=== PATIENT | male | born 1950 | race American Indian/Alaskan Native ===

== ENCOUNTER 2017-06-16 13:33 | Outpatient (CLI) | payer MEDICARE ==
--- NOTE | 2017-06-17 14:05 | PET Report ---
PET/CT:06/16/17 13:33:00 CLINICAL: Colon cancer and small bowel obstruction. RADIOPHARMACEUTICAL: 15.082mCi F18-FDG. COMPARISON: 10/09/15 PET/CT TECHNIQUE- Following intravenous injection of F-18 FDG and an approximately 60 minute uptake period, CT and PET images from the mid skull to the upper thighs were acquired with the patient in the fasted state. No contrast was administered. The CT protocol used for this PET CT study is designed for attenuation correction and anatomic localization of PET abnormalities. This improvement rn CT is not desired to produce and cannot replace, [id number]-art diagnostic CT scans with specific imaging protocols for different body parts and indications. Plasma glucose at the time of this test: 174g/dl. The standardized uptake values (SUV) are normalized to patient body weight and indicate the highest activity concentration (SUV max) in a given disease site. FINDINGS: Brain--Physiologic FDG uptake in the visualized regions of the brain. Neck--Physiologic FDG uptake . Chest--Physiologic FDG uptake in mediastinal blood pool and myocardium. Lungs--No abnormal uptake. No pulmonary nodule or mass. Pleura/pericardium--No abnormal uptake. Thoracic nodes--No abnormal uptake. Hepatobiliary--No abnormal uptake. Liver background SUV mean, as a reference for comparing FDG studies, is 3.5 compared to 3.8 on the last exam. No liver mass. Spleen--No abnormal uptake. Pancreas--No abnormal uptake. Adrenal Glands--No abnormal uptake. Kidneys/Ureters/Bladder--No abnormal uptake. Abdominopelvic Nodes--No abnormal uptake. Bowel/Peritoneum/Mesentery--Abnormal thickening of small bowel loops and multiple moderately dilated fluid filled loops of small bowel. The greatest dilatation is in the left mid and lower quadrant. Suspicious FDG uptake in the left lower quadrant adjacent to surgical clips at the left psoas muscle with SUV 6.2. No distinct mass is identified.Healed midline abdominal incision and a right ileotransverse anastomosis. No suspicious FDG uptake at the ileocolic anastomosis. Pelvic organs--No abnormal uptake. Bones/Soft Tissues--No abnormal uptake. No suspicious bone lesions. IMPRESSION-1. Moderate dilatation of left-sided small bowel loops are suspicious for at least a partial small bowel obstruction. 2. Suspect metastasis to left lower quadrant small bowel loops. Recommend CT abdomen and pelvis with both IV and oral contrast. This may better delineate a point of obstruction and may identify an obstructing. 3. No evidence of pulmonary, don or hepatic metastasis.
== END 2017-06-16 13:34 | disposition home or self-care (01) ==
LOC: PET 13:33
PROVIDERS: ATTEND Internal Medicine Hematology & Oncology
DX: K56.69 Other intestinal obstruction (principal); I11.0 Hypertensive heart disease with heart failure; I50.22 Chronic systolic (congestive) heart failure; E78.00 Pure hypercholesterolemia, unspecified; J44.9 Chronic obstructive pulmonary disease, unspecified; Z85.038 Personal history of other malignant neoplasm of large intestine; Z87.891 Personal history of nicotine dependence; Z79.899 Other long term (current) drug therapy
CPT/HCPCS: 78815; 82962; A9552

== ENCOUNTER 2017-08-27 02:16 | Inpatient (IN) | payer MEDICARE ==
[2017-08-27 03:35] LABS: Hematocrit 26.5 % (35.5-45.6); Hemoglobin 8.4 gm/dl (11.8-15.2); Mean Corpuscular HGB Conc 32 % (32-34); Mean Corpuscular Volume 77 fl (84-94); Platelet Count 362 K/mm3 (140-440); Red Blood Count 3.46 M/mm3 (3.65-5.03); White Blood Count 14.6 K/mm3 (4.5-11.0)
[2017-08-27 03:58] LABS: Alanine Aminotransferase 62 units/L (7-56); Albumin 3.2 g/dL (3.9-5); Albumin/Globulin Ratio 0.6 %; Alkaline Phosphatase 133 units/L (35-129); Anion Gap 20 mmol/L; BUN/Creatinine Ratio 21; Blood Urea Nitrogen 21 mg/dL (9-20); Calcium 9.2 mg/dL (8.4-10.2); Carbon Dioxide 26 mmol/L (22-30); Chloride 93.3 mmol/L (98-107); Glucose 104 mg/dL (75-100); Potassium 3.7 mmol/L (3.6-5.0); Sodium 136 mmol/L (137-145); Total Protein 8.5 g/dL (6.3-8.2)
[2017-08-27 04:05] LABS: Mean Corpuscular Hemoglobin 24 pg (28-32); Red Cell Distribution Width 25.8 % (13.2-15.2)
--- NOTE | 2017-08-27 05:00 | XRay Report ---
FINAL REPORT PROCEDURE: XR CHEST 1V AP TECHNIQUE: Chest radiograph anteroposterior view. CPT 25571 HISTORY: fever without a source COMPARISON: No prior studies are available for comparison. FINDINGS: Heart: The heart is enlarged Mediastinum/Vessels: Normal. Lungs/Pleural space: Lungs are clear. There are mild fibrotic changes. There are no infiltrates, effusions or pneumothoraces.. Bony thorax: No acute osseous abnormality. Life support devices: There is a right-sided PICC line. The tip is in the superior vena cava.. IMPRESSION: No acute cardiopulmonary abnormality.
[2017-08-27 05:26] LABS: Urine Drugs of Abuse Note Disclamer
[2017-08-27 05:33] LABS: Bilirubin,Urine NEG (Negative); Blood,Urine NEG (Negative); Ketones,Urine NEG (Negative); Leukocyte Esterase,Urine NEG (Negative); Nitrite,Urine NEG (Negative); Urobilinogen,Urine < 2.0 mg/dL (<2.0); WBC,Urine < 1.0 /HPF (0.0-6.0)
[2017-08-27] MEDS ORDERED: TYLENOL PR ONE (05:45)
--- NOTE | 2017-08-27 05:49 | Emergency Department Report ---
HPI - General Chief Complaint: Altered Mental Status Time Seen by Provider: 08/27/17 03:03 - HPI HPI: As a 66-year-old male presents to the emergency department from home with altered mental status. This has been going on intermittently since the patient last had surgery on July 20. 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 While he was in the hospital dealing with that, the patient then developed a DVT. The is currently bedside and says that he appeared lethargic today and was unable to respond to any questions or commands and that is unusual for him. She checked his temperature at home and he had a fever of 102.2 Fahrenheit. His primary care physician is Dr. Elaina carroll. He has a past medical history as well of insulin-dependent diabetes , hypertension, GERD. He has had 2 previous DVTs. He has a surgical history of previous colon resection, small bowel bypass, fistula repair, colostomy reversal. ED Past Medical Hx - Past Medical History Previous Medical History?: Yes Hx Hypertension: Yes (told to take atenolol) Hx Heart Attack/AMI: No Hx Diabetes: Yes (IDDM 2004) Hx Deep Vein Thrombosis: Yes (LEFT LEG 8 YEARS) Hx Pulmonary Embolism: Yes (2005) Hx GERD: Yes Hx Liver Disease: No Hx Renal Disease: No Hx Seizures: No Hx Asthma: No Additional medical history: 2 DVT'S in LLE, Picc line RUE - Surgical History Past Surgical History?: Yes Additional Surgical History: colon resection, small bowel Bypass, fistula repair , colostomy reversal - Social History Smoking Status: Never Smoker Substance Use Type: None - Medications Home Medications: Home Medications Medication Instructions Recorded Confirmed Last Taken Type Amlodipine Besylate/Benazepril 1 tab PO DAILY 01/01/15 08/27/17 08/26/17 History [amLODIPine-Benazepril 10/20 mg] Atenolol [Atenolol] 100 mg PO BID 01/01/15 08/27/17 08/26/17 History Insulin Glargine,Hum.rec.anlog 20 units SUB-Q HS 01/01/15 08/27/17 08/26/17 History [Lantus Solostar] Omeprazole [Omeprazole] 20 mg PO DAILY 01/01/15 08/27/17 08/26/17 History glyBURIDE/METFORMIN HCL 10 tab PO DAILY 01/01/15 08/27/17 08/26/17 History [Glyburide-Metformin 5-500 mg] Doxazosin [Cardura] 2 mg PO BID 08/27/17 08/27/17 08/26/17 History Insulin Glargine [Lantus] 20 unit SUB-Q QHS 08/27/17 08/27/17 08/26/17 History Simethicone [Gas Relief] 80 mg PO ACHS 08/27/17 08/27/17 08/26/17 History Warfarin [Coumadin] 7.5 mg PO QDAY 08/27/17 08/27/17 08/25/17 History metFORMIN [Glucophage] 500 mg PO BID 08/27/17 08/27/17 08/26/17 History oxyCODONE [Roxicodone] 5 mg PO Q4HR PRN 08/27/17 08/27/17 08/26/17 History ED Review of Systems ROS: Stated complaint: FEVER,COUGHING Other details as noted in HPI Comment: Unobtainable due to pts medical conditions Physical Exam - Physical Exam Vital Signs: Vital Signs 08/27/17 08/27/17 08/27/17 02:20 02:23 02:30 Temperature 100.7 F H Pulse Rate 95 H 96 H Respiratory 22 18 Rate Blood Pressure 181/89 179/80 O2 Sat by Pulse 90 98 98 Oximetry 08/27/17 08/27/17 08/27/17 02:45 02:52 03:00 Temperature 101.6 F H Pulse Rate 94 H 93 H Respiratory 18 20 Rate Blood Pressure 160/75 165/82 O2 Sat by Pulse 98 98 Oximetry 08/27/17 08/27/17 08/27/17 03:15 03:30 03:45 Temperature 101.6 F H Pulse Rate 90 87 88 Respiratory 19 20 22 Rate Blood Pressure 157/74 144/70 158/80 O2 Sat by Pulse 96 97 100 Oximetry 08/27/17 08/27/17 08/27/17 04:00 04:15 04:26 Temperature Pulse Rate 85 87 72 Respiratory 17 21 18 Rate Blood Pressure 151/71 152/70 O2 Sat by Pulse 98 99 99 Oximetry 08/27/17 04:32 Temperature 101.6 F H Pulse Rate Respiratory Rate Blood Pressure O2 Sat by Pulse Oximetry Physical Exam: GENERAL: Patient is ill-appearing. HENT: Normocephalic. Atraumatic. Patient has moist mucous membranes. EYES: Extraocular motions are intact. Pupils equal reactive to light bilaterally. NECK: Supple. Trachea is midline. CHEST/LUNGS: Clear to auscultation. There is no respiratory distress noted. HEART/CARDIOVASCULAR: Regular. There is no tachycardia. There is no gallop rub or murmur. ABDOMEN: Abdomen is soft, nontender. Patient has normal bowel sounds. There is no abdominal distention. SKIN: Skin is hot but dry. NEURO: Patient is awake but nonverbal. He does not answer any questions were appeared to follow any commands. Withdraws from painful stimuli. MUSCULOSKELETAL: There is no tenderness or deformity. There is no evidence of acute injury. ED Course Vital Signs 08/27/17 08/27/17 08/27/17 02:20 02:23 02:30 Temperature 100.7 F H Pulse Rate 95 H 96 H Respiratory 22 18 Rate Blood Pressure 181/89 179/80 O2 Sat by Pulse 90 98 98 Oximetry 08/27/17 08/27/17 08/27/17 02:45 02:52 03:00 Temperature 101.6 F H Pulse Rate 94 H 93 H Respiratory 18 20 Rate Blood Pressure 160/75 165/82 O2 Sat by Pulse 98 98 Oximetry 08/27/17 08/27/17 08/27/17 03:15 03:30 03:45 Temperature 101.6 F H Pulse Rate 90 87 88 Respiratory 19 20 22 Rate Blood Pressure 157/74 144/70 158/80 O2 Sat by Pulse 96 97 100 Oximetry 08/27/17 08/27/17 08/27/17 04:00 04:15 04:26 Temperature Pulse Rate 85 87 72 Respiratory 17 21 18 Rate Blood Pressure 151/71 152/70 O2 Sat by Pulse 98 99 99 Oximetry 08/27/17 04:32 Temperature 101.6 F H Pulse Rate Respiratory Rate Blood Pressure O2 Sat by Pulse Oximetry ED Medical Decision Making - Lab Data Result diagrams: 08/27/17 03:02 08/27/17 03:02 - EKG Data -: EKG Interpreted by Pa EKG shows normal: sinus rhythm, axis, intervals, QRS complexes (LVH), ST-T waves Rate: normal - EKG Data When compared to previous EKG there are: previous EKG unavailable Interpretation: LVH - Radiology Data Radiology results: report reviewed, image reviewed interpreted by me: Chest x-ray does not show any acute process. There are no pleural effusions, obvious pneumonia and there is no pneumothorax. PROCEDURE: CT ABDOMEN PELVIS W CON TECHNIQUE: Computerized axial tomography of the abdomen and pelvis was performed after the IV injection of iodinated nonionic contrast. HISTORY: Fever without infection, hx of intestinal ca COMPARISON: No prior studies are available for comparison. FINDINGS: Visualized lower thorax: Lower lung zone patchy atelectasis with airspace disease in the left lower lung zone. Rounded opacities including but not limited to right lung base 1.5 centimeters. Other smaller nodules lower lung zones suspected. Underlying metastatic disease not excludable. Heart is mildly enlarged. Liver: Significantly enlarged heterogeneous liver with mild periportal tracking.. Spleen: Normal size and attenuation. Gallbladder and biliary system: Normal. Pancreas: Diffuse pancreatic atrophy with diminished enhancement features of the pancreatic head uncinate process and proximal body of indeterminate significance.. Adrenals: Left adrenal gland mass or hyperplasia in the 1.5 x 1.2 centimeter range.. Kidneys: Cortical lobulation and scarring suspected. Possible complex mass lesion lower pole left kidney in the 2.3 x 2.7 centimeter range. Rule-out metastatic disease local invasion of malignancy or renal cell carcinoma. This appears to be intimately adhesive to or subjacent to loops of previously surgerized bowel. GI tract: No oral contrast given. There is decompression of the stomach with wall thickening inconclusive for filtration pathology. Wall measures up to 2 centimeters. There is extensive postsurgical change in the infraumbilical anterior abdomen with clustering of bowel and with scattered air-fluid levels and dilated portions of bowel in wall thickening measuring up to 4.3 centimeters. There has been postsurgical anastomoses at several levels infraumbilical right upper abdomen left lower quadrant area. Obstructive process is not excludable and is the diagnosis of exclusion. Underlying malignancy is the diagnosis of exclusion. Underlying mesenteric caking is not excludable. Followup examination with oral contrast may be of use to further evaluate patency bowel lumen and to decipher between bowel loops versus fluid collections adenopathy masses and potentially malignancy. Defer to PET scan regarding excluding underlying malignancy. There is soft tissue stranding in thickening with ventral abdominal herniation of fat left paraumbilical region axial 111 sagittal 92. This could reflect a herniated loop of bowel which could be incarcerated or early strangulated however could reflect a subcutaneous and deep tissue fluid collection or abscess with fluid and gas present. Followup oral examination is advised. Areas of bowel wall thickening evident Lymph nodes and mesentery: Scattered adenopathy including carmen hepatis retroperitoneum mesentery Vasculature: Atherosclerosis. Poorly opacified left common femoral vein. This could reflect manifestations of DVT. Recommend left leg ultrasound. Slight stranding and thickening about the left common femoral vein.. Bladder: Normal. Reproductive organs: Normal. Peritoneum: No free fluid. Musculoskeletal structures: No significant abnormality. Other: No prior CT scan submitted for correlation at this time. Place have those available for follow-up study correlation in this case IMPRESSION: Extensive GI postsurgical changes in the anterior abdomen Limited by lack of oral contrast. Underlying abscess or malignancy not excludable. Early bowel obstruction not excludable. Areas of bowel wall thickening surrounded by cohesive bowel possible small potential pockets of fluid and mesenteric stranding. Mesenteric implantation caking not excludable. Rule-out ventral herniation of bowel and potentially incarcerated or early strangulated loop versus subcutaneous surgical tract with fluid gas and infection in that location. Suggest followup CT scan with oral contrast and some added IV contrast preferably Rule-out malignancy in the lower pole left kidney adhesive to diseased bowel Rule-out metastatic disease in the lungs Rule-out DVT left common femoral vein Transcribed By: STEPHANIE Dictated By: MOLLY GREGORY MD Electronically Authenticated By: MOLLY GREGORY MD Signed Date/Time: 08/27/17 0536 PROCEDURE: CT HEAD/BRAIN WO CON TECHNIQUE: Computerized tomography of the head was performed without contrast material. HISTORY: AMS COMPARISON: No prior studies are available for comparison. FINDINGS: Skull and scalp: Normal. Paranasal sinuses: Normal. Ventricles and subarachnoid spaces: There is mild central and cortical atrophy appropriate for the patient's age.. Cerebrum: No evidence of hemorrhage, acute infarction or mass. There is chronic periventricular deep white matter ischemic gliosis. Cerebellum and brainstem: No evidence of hemorrhage, acute infarction or mass. Vasculature: Normal. Comments: None. IMPRESSION: There is no acute intracranial abnormality. - Medical Decision Making The patient presents with intermittent altered mental status over the past month or so. CT of the head did not show any acute process. Chest x-ray did not show any pneumonia. The patient appears to have Sirs criteria but no obvious source of infection found. CT of abdomen and pelvis was done at the admitting hospitalist request and it did not appear to show any obvious source of infection but without oral contrast radiology felt certain conditions were not ruled out. Patient was started empirically on Zosyn. He was admitted to Dr. Mirza and it appears as if a surgical consultation was obtained. Critical Care Time: No Critical care attestation.: If time is entered above; I have spent that time in minutes in the direct care of this critically ill patient, excluding procedure time. ED Disposition Clinical Impression: SIRS (systemic inflammatory response syndrome) Fever Qualifiers: Fever type: unspecified Qualified Code(s): R50.9 - Fever, unspecified Hypertension Qualifiers: Hypertension type: essential hypertension Qualified Code(s): I10 - Essential ( primary) hypertension Altered mental status Qualifiers: Altered mental status type: transient alteration of awareness Qualified Code(s) : R40.4 - Transient alteration of awareness Disposition: DC-09 OP ADMIT IP TO THIS HOSP Is pt being admited?: Yes Condition: Fair Time of Disposition: 06:27
[2017-08-27] MEDS ORDERED: ZOSYN/NS 4.5GM/100ML 4.5 GM/100 ML VIAL IV ONE (06:00)
--- NOTE | 2017-08-27 06:26 | Cat Scan Report ---
FINAL REPORT PROCEDURE: CT HEAD/BRAIN WO CON TECHNIQUE: Computerized tomography of the head was performed without contrast material. HISTORY: AMS COMPARISON: No prior studies are available for comparison. FINDINGS: Skull and scalp: Normal. Paranasal sinuses: Normal. Ventricles and subarachnoid spaces: There is mild central and cortical atrophy appropriate for the patient's age.. Cerebrum: No evidence of hemorrhage, acute infarction or mass. There is chronic periventricular deep white matter ischemic gliosis. Cerebellum and brainstem: No evidence of hemorrhage, acute infarction or mass. Vasculature: Normal. Comments: None. IMPRESSION: There is no acute intracranial abnormality.
[2017-08-27] MEDS ORDERED: VANCOMYCIN/NS 1 GM/250 ML 1 GM/250 ML BAG IV ONE (06:36)
[2017-08-27 06:37] LABS: Blastocytes % (Manual) 0 %
[2017-08-27 06:38] LABS: Anisocytosis 2+
[2017-08-27 06:39] LABS: Elliptocytes Few; Giant Platelets Few; Hypochromasia 2+; Ovalocytes Few; Polychromasia 1+; Target Cells Rare
[2017-08-27 06:40] LABS: Diff Status Complete
[2017-08-27] MEDS ORDERED: VANCOMYCIN 1,750 MG in NACL 0.9% 500 ML 500 ML IV ONE (07:00)
[2017-08-27] MEDS ORDERED: D5/0.45NS 1,000 ML IV SCH (07:00)
[2017-08-27] MEDS ORDERED: NACL ONE (07:52)
--- NOTE | 2017-08-27 09:38 | Cat Scan Report ---
FINAL REPORT PROCEDURE: CT ABDOMEN PELVIS W CON TECHNIQUE: Computerized axial tomography of the abdomen and pelvis was performed after the IV injection of iodinated nonionic contrast. HISTORY: Fever without infection, hx of intestinal ca COMPARISON: No prior studies are available for comparison. FINDINGS: Visualized lower thorax: Lower lung zone patchy atelectasis with airspace disease in the left lower lung zone. Rounded opacities including but not limited to right lung base 1.5 centimeters. Other smaller nodules lower lung zones suspected. Underlying metastatic disease not excludable. Heart is mildly enlarged. Liver: Significantly enlarged heterogeneous liver with mild periportal tracking.. Spleen: Normal size and attenuation. Gallbladder and biliary system: Normal. Pancreas: Diffuse pancreatic atrophy with diminished enhancement features of the pancreatic head uncinate process and proximal body of indeterminate significance.. Adrenals: Left adrenal gland mass or hyperplasia in the 1.5 x 1.2 centimeter range.. Kidneys: Cortical lobulation and scarring suspected. Possible complex mass lesion lower pole left kidney in the 2.3 x 2.7 centimeter range. Rule-out metastatic disease local invasion of malignancy or renal cell carcinoma. This appears to be intimately adhesive to or subjacent to loops of previously surgerized bowel. GI tract: No oral contrast given. There is decompression of the stomach with wall thickening inconclusive for filtration pathology. Wall measures up to 2 centimeters. There is extensive postsurgical change in the infraumbilical anterior abdomen with clustering of bowel and with scattered air-fluid levels and dilated portions of bowel in wall thickening measuring up to 4.3 centimeters. There has been postsurgical anastomoses at several levels infraumbilical right upper abdomen left lower quadrant area. Obstructive process is not excludable and is the diagnosis of exclusion. Underlying malignancy is the diagnosis of exclusion. Underlying mesenteric caking is not excludable. Followup examination with oral contrast may be of use to further evaluate patency bowel lumen and to decipher between bowel loops versus fluid collections adenopathy masses and potentially malignancy. Defer to PET scan regarding excluding underlying malignancy. There is soft tissue stranding in thickening with ventral abdominal herniation of fat left paraumbilical region axial 111 sagittal 92. This could reflect a herniated loop of bowel which could be incarcerated or early strangulated however could reflect a subcutaneous and deep tissue fluid collection or abscess with fluid and gas present. Followup oral examination is advised. Areas of bowel wall thickening evident Lymph nodes and mesentery: Scattered adenopathy including carmen hepatis retroperitoneum mesentery Vasculature: Atherosclerosis. Poorly opacified left common femoral vein. This could reflect manifestations of DVT. Recommend left leg ultrasound. Slight stranding and thickening about the left common femoral vein.. Bladder: Normal. Reproductive organs: Normal. Peritoneum: No free fluid. Musculoskeletal structures: No significant abnormality. Other: No prior CT scan submitted for correlation at this time. Place have those available for follow-up study correlation in this case IMPRESSION: Extensive GI postsurgical changes in the anterior abdomen Limited by lack of oral contrast. Underlying abscess or malignancy not excludable. Early bowel obstruction not excludable. Areas of bowel wall thickening surrounded by cohesive bowel possible small potential pockets of fluid and mesenteric stranding. Mesenteric implantation caking not excludable. Rule-out ventral herniation of bowel and potentially incarcerated or early strangulated loop versus subcutaneous surgical tract with fluid gas and infection in that location. Suggest followup CT scan with oral contrast and some added IV contrast preferably Rule-out malignancy in the lower pole left kidney adhesive to diseased bowel Rule-out metastatic disease in the lungs Rule-out DVT left common femoral vein
[2017-08-27] MEDS ORDERED: LOVENOX SUB-Q SCH (10:00)
--- NOTE | 2017-08-27 11:59 | Event Note ---
Requested follow-up on CT abdomen and pelvis reading by Dr. Rosas. FINAL REPORT PROCEDURE: CT ABDOMEN PELVIS W CON TECHNIQUE: Computerized axial tomography of the abdomen and pelvis was performed after the IV injection of iodinated nonionic contrast. HISTORY: Fever without infection, hx of intestinal ca COMPARISON: No prior studies are available for comparison. FINDINGS: Visualized lower thorax: Lower lung zone patchy atelectasis with airspace disease in the left lower lung zone. Rounded opacities including but not limited to right lung base 1.5 centimeters. Other smaller nodules lower lung zones suspected. Underlying metastatic disease not excludable. Heart is mildly enlarged. Liver: Significantly enlarged heterogeneous liver with mild periportal tracking.. Spleen: Normal size and attenuation. Gallbladder and biliary system: Normal. Pancreas: Diffuse pancreatic atrophy with diminished enhancement features of the pancreatic head uncinate process and proximal body of indeterminate significance.. Adrenals: Left adrenal gland mass or hyperplasia in the 1.5 x 1.2 centimeter range.. Kidneys: Cortical lobulation and scarring suspected. Possible complex mass lesion lower pole left kidney in the 2.3 x 2.7 centimeter range. Rule-out metastatic disease local invasion of malignancy or renal cell carcinoma. This appears to be intimately adhesive to or subjacent to loops of previously surgerized bowel. GI tract: No oral contrast given. There is decompression of the stomach with wall thickening inconclusive for filtration pathology. Wall measures up to 2 centimeters. There is extensive postsurgical change in the infraumbilical anterior abdomen with clustering of bowel and with scattered air-fluid levels and dilated portions of bowel in wall thickening measuring up to 4.3 centimeters. There has been postsurgical anastomoses at several levels infraumbilical right upper abdomen left lower quadrant area. Obstructive process is not excludable and is the diagnosis of exclusion. Underlying malignancy is the diagnosis of exclusion. Underlying mesenteric caking is not excludable. Followup examination with oral contrast may be of use to further evaluate patency bowel lumen and to decipher between bowel loops versus fluid collections adenopathy masses and potentially malignancy. Defer to PET scan regarding excluding underlying malignancy. There is soft tissue stranding in thickening with ventral abdominal herniation of fat left paraumbilical region axial 111 sagittal 92. This could reflect a herniated loop of bowel which could be incarcerated or early strangulated however could reflect a subcutaneous and deep tissue fluid collection or abscess with fluid and gas present. Followup oral examination is advised. Areas of bowel wall thickening evident Lymph nodes and mesentery: Scattered adenopathy including carmen hepatis retroperitoneum mesentery Vasculature: Atherosclerosis. Poorly opacified left common femoral vein. This could reflect manifestations of DVT. Recommend left leg ultrasound. Slight stranding and thickening about the left common femoral vein.. Bladder: Normal. Reproductive organs: Normal. Peritoneum: No free fluid. Musculoskeletal structures: No significant abnormality. Other: No prior CT scan submitted for correlation at this time. Place have those available for follow-up study correlation in this case IMPRESSION: Extensive GI postsurgical changes in the anterior abdomen Limited by lack of oral contrast. Underlying abscess or malignancy not excludable. Early bowel obstruction not excludable. Areas of bowel wall thickening surrounded by cohesive bowel possible small potential pockets of fluid and mesenteric stranding. Mesenteric implantation caking not excludable. Rule-out ventral herniation of bowel and potentially incarcerated or early strangulated loop versus subcutaneous surgical tract with fluid gas and infection in that location. Suggest followup CT scan with oral contrast and some added IV contrast preferably Rule-out malignancy in the lower pole left kidney adhesive to diseased bowel Rule-out metastatic disease in the lungs Rule-out DVT left common femoral vein Transcribed By: STEPHANIE Dictated By: MOLLY GREGORY MD Electronically Authenticated By: MOLLY GREGORY MD Signed Date/Time: 08/27/17535 DD/ 5 TD/TT: 08/27/17535 CT report discussed with Dr. Lewis at 11:55. He requests Dr. Trujillo be consulted. Case discussed with Dr. Trujillo at 11:58
--- NOTE | 2017-08-27 13:02 | History and Physical Report ---
History of Present Illness Date of examination: 08/27/17 Date of admission: 08/27/17 06:28 Chief complaint: AMS History of present illness: As a 66-year-old male with a history of DM, DVT, GERD, HTN inoperable colon cancer, presents to the emergency department from home on account of having altered mental status and fever. He has previous DVTs. He has a surgical history of previous colon resection, small bowel bypass. This has been going on intermittently since the patient last had surgery on July 2017. 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 While he was in the hospital dealing with that, the patient then developed a DVT. The is currently bedside and says that he appeared lethargic today and was unable to respond to any questions or commands and that is unusual for him. She checked his temperature at home and he had a fever of 102.2 Fahrenheit. He has had 2 previous DVTs. He has a surgical history of previous colon resection, small bowel bypass, fistula repair, colostomy reversal. Denies any chest pain. admission was requested Past History Past Medical History: diabetes, hypertension Past Surgical History: bowel surgery Social history: smoking, alcohol abuse, prescription drug abuse Family history: no significant family history Medications and Allergies Allergies Allergy/AdvReac Type Severity Reaction Status Date / Time No Known Allergies Allergy Verified 01/01/15 13:25 Home Medications Medication Instructions Recorded Confirmed Last Taken Type Amlodipine Besylate/Benazepril 1 tab PO DAILY 01/01/15 08/27/17 08/26/17 History [amLODIPine-Benazepril 10/20 mg] Atenolol [Atenolol] 100 mg PO BID 01/01/15 08/27/17 08/26/17 History Insulin Glargine,Hum.rec.anlog 20 units SUB-Q HS 01/01/15 08/27/17 08/26/17 History [Lantus Solostar] Omeprazole [Omeprazole] 20 mg PO DAILY 01/01/15 08/27/17 08/26/17 History glyBURIDE/METFORMIN HCL 10 tab PO DAILY 01/01/15 08/27/17 08/26/17 History [Glyburide-Metformin 5-500 mg] Doxazosin [Cardura] 2 mg PO BID 08/27/17 08/27/17 08/26/17 History Insulin Glargine [Lantus] 20 unit SUB-Q QHS 08/27/17 08/27/17 08/26/17 History Simethicone [Gas Relief] 80 mg PO ACHS 08/27/17 08/27/17 08/26/17 History Warfarin [Coumadin] 7.5 mg PO QDAY 08/27/17 08/27/17 08/25/17 History metFORMIN [Glucophage] 500 mg PO BID 08/27/17 08/27/17 08/26/17 History oxyCODONE [Roxicodone] 5 mg PO Q4HR PRN 08/27/17 08/27/17 08/26/17 History Active Meds: Active Medications Enoxaparin Sodium (Lovenox) 40 mg SUB-Q QDAY ALEC Dextrose/Sodium Chloride (D5/0.45ns) 1,000 mls @ 75 mls/hr IV DIRECT ALEC Last Admin: 08/27/17 07:46 Dose: 75 mls/hr Vancomycin HCl 1,250 mg/ (Sodium Chloride) 262.5 mls @ 166.667 mls/hr IV Q12H ALEC Review of Systems ROS unobtainable: due to mental status Exam - Constitutional Vitals: Temp Pulse Resp BP Pulse Ox 99.6 F 76 18 139/68 100 08/27/17 10:59 08/27/17 10:59 08/27/17 10:59 08/27/17 10:59 08/27/17 10:59 General appearance: Present: no acute distress, well-nourished - EENT Eyes: Present: PERRL - Neck Neck: Present: supple, normal ROM - Respiratory Respiratory effort: normal Respiratory: bilateral: CTA - Cardiovascular Heart Sounds: Present: S1 & S2. Absent: rub, click - Extremities Extremities: pulses symmetrical, No edema Peripheral Pulses: within normal limits - Abdominal General gastrointestinal: Present: soft, non-tender, non-distended, normal bowel sounds Male genitourinary: Present: normal - Integumentary Integumentary: Present: clear, warm, dry - Musculoskeletal Musculoskeletal: gait normal, strength equal bilaterally - Psychiatric Psychiatric: appropriate mood/affect, intact judgment & insight - Neurologic Neurologic: CNII-XII intact, moves all extremities Results - Labs CBC & Chem 7: 08/28/17 20:43 08/29/17 02:56 Labs: Abnormal lab results 08/27/17 08/27/17 08/27/17 Range/Units 03:02 03:02 03:02 WBC 14.6 H (4.5-11.0) K/mm3 RBC 3.46 L (3.65-5.03) M/mm3 Hgb 8.4 L (11.8-15.2) gm/dl Hct 26.5 L (35.5-45.6) % MCV 77 L (84-94) fl MCH 24 L (28-32) pg RDW 25.8 H (13.2-15.2) % Monocytes % (Manual) 8.0 H (0.0-7.3) % Nucleated RBC % 3.0 H (0.0-0.9) % Monocytes # (Manual) 1.2 H (0.0-0.8) K/mm3 Sodium 136 L (137-145) mmol/L Chloride 93.3 L (98-107) mmol/L BUN 21 H (9-20) mg/dL Glucose 104 H (75-100) mg/dL POC Glucose (70-105) ALT 62 H (7-56) units/L Alkaline Phosphatase 133 H (35-129) units/L Total Protein 8.5 H (6.3-8.2) g/dL Albumin 3.2 L (3.9-5) g/dL Urine pH (5.0-7.0) Salicylates < 0.3 L (2.8-20.0) mg/dL 08/27/17 08/27/17 08/27/17 Range/Units 05:00 07:43 11:20 WBC (4.5-11.0) K/mm3 RBC (3.65-5.03) M/mm3 Hgb (11.8-15.2) gm/dl Hct (35.5-45.6) % MCV (84-94) fl MCH (28-32) pg RDW (13.2-15.2) % Monocytes % (Manual) (0.0-7.3) % Nucleated RBC % (0.0-0.9) % Monocytes # (Manual) (0.0-0.8) K/mm3 Sodium (137-145) mmol/L Chloride (98-107) mmol/L BUN (9-20) mg/dL Glucose (75-100) mg/dL POC Glucose 116 H 110 H (70-105) ALT (7-56) units/L Alkaline Phosphatase (35-129) units/L Total Protein (6.3-8.2) g/dL Albumin (3.9-5) g/dL Urine pH 9.0 H (5.0-7.0) Salicylates (2.8-20.0) mg/dL Assessment and Plan - Fever: Obtain blood cx and urine cx. Commence iv antibx- Vanc and Zosyn and zofran. Lactic acid was normal - Partial intestinal obstruction: Continue with TPN and place on NPO. Discussed with Surgeon Dr. Trujillo who said that pt had inoperable cancer and will not consider surgical operation. - History of colon cancer: s/p gut resection. - Metastatic cnacer likely colonic with mets to the Liver kidney and lungs. discussed with Dr. Trujillo. Not willing to operate. - DM: Consistent carbohydrate meal - Possible DVT: Commence lovenox 1mg per kg q 12 - GI prophyalxis with Pepcid - Discussed at length with pt's brother who stated that Pt had a diverting intestinal surgery at [facility] for a cancer that was inoperable a few months ago. Had PET scan in Jun 2016 which was read by his oncologist, Dr. BOYD as having distant mets and that pt was not fit fro Chemotherapy. He threefioore referred pt to Radiation oncologist which they were to see next week.
[2017-08-27] MEDS: TYLENOL PO PRN (13:10)
[2017-08-27] MEDS ORDERED: AMLODIPINE BESYLATE PO SCH (13:15)
[2017-08-27] MEDS ORDERED: BENAZEPRIL PO SCH (13:15)
[2017-08-27] MEDS ORDERED: ZOSYN/NS 3.375GM/50ML 3.375 GM/50 ML BAG IV SCH (14:00)
[2017-08-27] MEDS ORDERED: VANCOMYCIN/NS 1 GM/250 ML 1 GM/250 ML BAG IV SCH (14:00)
[2017-08-27] MEDS: CARDURA PO SCH ×2 (15:29→22:30)
[2017-08-27] MEDS ORDERED: ZOSYN/NS 4.5GM/100ML 4.5 GM/100 ML VIAL IV SCH (16:00)
[2017-08-27] MEDS: ROXICODONE PO PRN (16:40)
[2017-08-27] MEDS: ZOSYN/NS 4.5GM/100ML 4.5 GM/100 ML VIAL IV SCH (17:06)
[2017-08-27] MEDS: GLUCOPHAGE PO SCH (17:17)
--- NOTE | 2017-08-27 19:33 | Consultation ---
HISTORY OF PRESENT ILLNESS: The patient is a 66-year-old black male who was in this hospital about 6 weeks ago. At that point, he had some tumor caking on his abdomen. At that point, he was advised surgical intervention, but for some reason he refused and he went home where then he landed at [facility] where he underwent exploratory laparotomy. His original problem started about 11 years ago when he was found to have a colon cancer required resection at that point. The patient at [facility] from what I could tell from his that he had small-bowel obstruction requiring a bypass to the area. He went home about 1-2 weeks ago, but in the last 24 hours, he started having this headache and he became sleepy and lethargic. His temperature was between 99 and 100 and his white count was 14.6, today. Hemoglobin was 8.4 and the platelets were 362. The patient also was found to have severe edema involving his left lower extremity from the thigh down. I could not specifically talk to him he was very lethargic and sleepy. The patient's most of the information was taken from his . His creatinine was 1, potassium was 3.7, the sugar is 104 and lactic acid is 1.9. Noted elevated alkaline phosphatase. The albumin is 3.2. PHYSICAL EXAMINATION: GENERAL: Showed an elderly man. He is lethargic. He is barely able to open his eyes. He is deep asleep. HEAD AND NECK: Essentially negative. NECK: Supple. CHEST: Showed diffuse decrease in the breath sounds in particular in the bases. HEART: Sounds normal. ABDOMEN: Protuberant. It is moderately rigid with hypoactive bowel sounds. EXTREMITIES: Showed severe edema grade 3-4 involving the entire left lower extremity from the thigh to the lower leg. NEUROLOGIC: The patient is very, very lethargic and noncommunicable. IMPRESSION AND PLAN: Carcinoma of the colon, status post resection 11 years ago, stage IV at the present time with metastases seen in the liver and the kidney area as well as in the lungs. The edema in the left lower extremity would denote to me some lymphadenopathy in the iliac vein aspect. RECOMMENDATIONS: Surgically speaking, this man is not a candidate for any surgical intervention. I discussed the case at length with his . I was under the impression Dr. Lenny Kumari is going to see him and needs to be done on him. JOB# [id number] LOBITO/JAMES KRAMER
[2017-08-27] MEDS ORDERED: TPN ADULT 2,016 ML IV SCH (20:00)
[2017-08-27] MEDS: VANCOMYCIN 1,250 MG in NACL 0.9% 250ML 250 ML IV SCH (21:00)
[2017-08-27] MEDS ORDERED: ATENOLOL 100 MG PO SCH (22:00)
[2017-08-27] MEDS ORDERED: NON-FORMULARY (Insulin Glargine,Hum.Rec.Anlog [Lantus Solostar] 20 UNITS) SUB-Q SCH (22:00)
[2017-08-28] MEDS: LEVEMIR SUB-Q SCH (04:34)
[2017-08-28] MEDS: LOVENOX SUB-Q SCH ×2 (04:36→10:08)
[2017-08-28] MEDS: TENORMIN PO SCH ×2 (04:38→10:08)
[2017-08-28 05:53] LABS: INR 2.17 (0.87-1.13)
[2017-08-28 05:57] LABS: Anion Gap 19 mmol/L; BUN/Creatinine Ratio 17; Blood Urea Nitrogen 17 mg/dL (9-20); Calcium 8.2 mg/dL (8.4-10.2); Carbon Dioxide 23 mmol/L (22-30); Chloride 99.4 mmol/L (98-107); Glucose 139 mg/dL (75-100); Potassium 3.7 mmol/L (3.6-5.0); Sodium 138 mmol/L (137-145)
[2017-08-28] MEDS: ROXICODONE PO PRN (06:20)
[2017-08-28] MEDS: TYLENOL PO PRN ×2 (07:22→17:31)
[2017-08-28] MEDS ORDERED: VANCOMYCIN 1,500 MG in NACL 0.9% 500 ML 500 ML IV SCH (08:00)
--- NOTE | 2017-08-28 08:37 | Progress Note ---
Assessment and Plan - Fever: F/u with blood cx and urine cx. Commence iv antibx- Vanc and Zosyn and zofran. Lactic acid was normal. - History of colon cancer: s/p gut resection. - Partial intestinal obstruction: Continue with TPN and place on NPO. Discussed with Surgeon Dr. Trujillo who said that pt had inoperable cancer and will no consider surgical operation. - anemia of chronid disease - Metastatic cancer likely colonic with mets to the Liver, kidney and lungs. discussed with Dr. Trujillo. Not willing to operate. - DM: Consistent carbohydrate diet - Possible DVT left common femoral vein: Will get Venous doppler. Commence lovenox 1mg per kg q 12 - GI prophyalxis with Pepcid - Discussed at length with pt's brother who stated that Pt had a diverting intestinal surgery at [facility] for a cancer that was inoperable a few months ago. Had PET scan in Jun 2016 which was read by his oncologist, Dr. BOYD as having distant mets and that pt was not fit fro Chemotherapy. He threefioore referred pt to Radiation oncologist which they were to see next week. Subjective Date of service: 08/28/17 Principal diagnosis: Fever and Partial intestinal obstrution with metstatic disease Interval history: Still has alteration in his mental status with lethergy Objective - Constitutional Vitals: Vital Signs - 12hr 08/28/17 08/28/17 05:15 07:10 Temperature 100.8 F H 101.3 F H Pulse Rate 91 H 91 H Respiratory 18 20 Rate Blood Pressure 172/81 162/84 O2 Sat by Pulse 93 99 Oximetry General appearance: Present: no acute distress, well-nourished - EENT Eyes: PERRL, EOM intact Ears: bilateral: normal - Neck Neck: supple, normal ROM - Respiratory Respiratory effort: normal Respiratory: bilateral: CTA - Cardiovascular Rhythm: regular Heart Sounds: Present: S1 & S2. Absent: gallop, rub Extremities: pulses intact, No edema, normal color, Full ROM - Gastrointestinal General gastrointestinal: Present: soft, non-tender, non-distended, normal bowel sounds - Integumentary Integumentary: clear, warm, dry - Musculoskeletal Musculoskeletal: 1, strength equal bilaterally - Neurologic Neurologic: moves all extremities - Psychiatric Psychiatric: memory intact, appropriate mood/affect, intact judgment & insight - Labs CBC & Chem 7: 11/18/17 03:02 08/28/17 04:41 Labs: Abnormal lab results 08/27/17 08/27/17 08/27/17 Range/Units 11:20 16:36 22:00 PT (12.2-14.9) Sec. INR (0.87-1.13) Glucose (75-100) mg/dL POC Glucose 110 H 108 H 130 H (70-105) Calcium (8.4-10.2) mg/dL 08/28/17 08/28/17 08/28/17 Range/Units 04:41 04:41 06:46 PT 25.2 H (12.2-14.9) Sec. INR 2.17 H (0.87-1.13) Glucose 139 H (75-100) mg/dL POC Glucose 176 H (70-105) Calcium 8.2 L (8.4-10.2) mg/dL 08/28/17 Range/Units 07:16 PT (12.2-14.9) Sec. INR (0.87-1.13) Glucose (75-100) mg/dL POC Glucose 175 H (70-105) Calcium (8.4-10.2) mg/dL
[2017-08-28] MEDS: GLUCOPHAGE PO SCH ×2 (10:09→17:31)
[2017-08-28] MEDS: CARDURA PO SCH (10:09)
[2017-08-28] MEDS: VANCOMYCIN 1,250 MG in NACL 0.9% 250ML 250 ML IV SCH ×2 (10:10→20:54)
[2017-08-28] MEDS: PERIACTIN PO SCH (10:52)
[2017-08-28] MEDS: ZESTRIL PO SCH (15:08)
[2017-08-28] MEDS: NORVASC PO SCH (15:09)
[2017-08-28] MEDS ORDERED: HEPARIN 10,000 UNITS/10 ML IV NR (19:42)
[2017-08-28] MEDS ORDERED: TPN ADULT 2,016 ML IV SCH (20:00)
[2017-08-28 20:25] LABS: INR 1.8 (0.87-1.13); Partial Thromboplastin Time 56.5 Sec. (24.2-36.6)
[2017-08-28 20:31] LABS: Hematocrit TNR % (35.5-45.6); Hemoglobin TNR gm/dl (11.8-15.2); Platelet Count TNR K/mm3 (140-440)
[2017-08-28 20:58] LABS: Hematocrit 20.6 % (35.5-45.6); Hemoglobin 6.4 gm/dl (11.8-15.2)
[2017-08-29] MEDS: TENORMIN PO SCH ×3 (00:28→23:12)
[2017-08-29] MEDS: PERIACTIN PO SCH ×3 (00:28→23:20)
[2017-08-29] MEDS: TYLENOL PO PRN ×4 (00:28→16:55)
[2017-08-29] MEDS: CARDURA PO SCH ×3 (00:28→23:14)
[2017-08-29] MEDS: ROXICODONE PO PRN ×3 (00:29→18:43)
[2017-08-29] MEDS: LEVEMIR SUB-Q SCH ×2 (00:29→23:14)
[2017-08-29] MEDS: ZOSYN/NS 4.5GM/100ML 4.5 GM/100 ML VIAL IV SCH ×4 (00:45→17:54)
[2017-08-29] MEDS ORDERED: NACL 0.9% 500 ML 500 ML IV ONE (00:59)
[2017-08-29 03:23] LABS: Anion Gap 19 mmol/L; BUN/Creatinine Ratio 19; Blood Urea Nitrogen 21 mg/dL (9-20); Carbon Dioxide 21 mmol/L (22-30); Chloride 103.7 mmol/L (98-107); Glucose 214 mg/dL (75-100); Potassium 3.5 mmol/L (3.6-5.0); Sodium 140 mmol/L (137-145)
[2017-08-29] MEDS ORDERED: NACL 0.9% 500 ML 500 ML ONE (04:09)
--- NOTE | 2017-08-29 09:22 | XRay Report ---
SUPINE KUB: History: Stage IV colon cancer The abdominal gas pattern is unremarkable. No masses or organomegaly is identified and there is no gross evidence of free air or fluid. Multiple surgical clips and coils are noted in the lower abdomen. Correlate with surgical history. No significant soft tissue calcifications are noted. IMPRESSION: No acute abdominal process identified.
--- NOTE | 2017-08-29 09:27 | Progress Note ---
Assessment and Plan - Patient Problems (1) Colon cancer metastasized to multiple sites Current Visit: Yes Status: Acute Plan to address problem: Review CT scan of the abdomen with radiology to further ascertain current status of abdominal mass. Lungs previous evaluation done in June did not show any evidence of mass and the PET scan only identified the previously identified area of lesion in the abdomen site of multiple surgery (2) Altered mental status Current Visit: Yes Status: Acute Qualifiers: Altered mental status type: transient alteration of awareness Qualified Code(s): R40.4 - Transient alteration of awareness Plan to address problem: Ongoing fever no definite source with continue on IV antibiotics. Patient also has DVT which could also be a source of ongoing fever (3) Fever Current Visit: Yes Status: Acute Qualifiers: Fever type: unspecified Qualified Code(s): R50.9 - Fever, unspecified Plan to address problem: Continue on IV antibiotics currently on vancomycin and Zosyn if fever persists despite antibiotics will obtain ID consultation. We will follow up on cultures obtained on August 27 (4) Hypertension Current Visit: Yes Status: Acute Qualifiers: Hypertension type: essential hypertension Qualified Code(s): I10 - Essential (primary) hypertension Plan to address problem: Blood pressures is fairly stable on current medication would maintain the same at this time (5) Type 2 diabetes mellitus without complications Current Visit: Yes Status: Acute Plan to address problem: Sliding scale coverage with regular insulin and continue long-acting insulin. Patient also on IV TPN (6) Deep vein blood clot of left lower extremity Current Visit: Yes Status: Acute Plan to address problem: Will hold off on IV anticoagulation at this time. Plan is to transition patient to a [facility] and DC Coumadin Subjective Date of service: 08/29/17 Principal diagnosis: Fever and Partial intestinal obstrution with metstatic disease Interval history: Patient seen and examined , chart reviewed .Patient with history of colon cancer post hemicolectomy ten years previously admitted in June with intestinal obstruction now status post laparatomy showing recurrence of disease which is non resectable . Patient readmitted to my service by Dr Lewis over the weekend with fever ,Recent DVT but therapeutic on anticoagulation . Patient is sleepy but arouses easily and responding appropriately , denied pain , still with low grade Temp Tmax of 100.3 Objective - Exam Narrative Exam: GENERAL: Ill looking, sleepy but responds to name call and appropriate responding to questions appropriately not in distress HEENT: [Head examination showed normocephalic. Patient is not pale, not jaundiced, and not cyanosed.] [Mucous membrane is moist, pharynx is clear, no exudates or hemorrhage. Dentition is normal.] NECK: [Supple. Neck showed good range of motion. There is no adenopathy noted. No jugular venous distention and no thyromegaly.] [Neck auscultation showed no carotid bruit.] CHEST/LUNGS: Poor Air exchange bibasally, no wheezes no rales. HEART/CARDIOVASCULAR: [No murmur. Regular rate and rhythm. S1 and S2 only, no S3 gallop, no S4.] ABDOMEN: [Abdomen is protuberant, diffusely tender to deep palpation, active bowel sounds. Surgical site well-healed, diffusely poorly palpated mass in the left lower quadrant SKIN: [There is no rash. There is no edema. There is no diaphoresis.] NEURO: [The patient is awake, alert, and oriented. The patient is cooperative. The patient has no focal neurologic deficits. Cranial nerves 2-12 grossly normal, power is 5/5 in all the extremities tested. The patient has normal speech and gait.] MUSCULOSKELETAL: [There is no tenderness or deformity. There is no limitation range of motion. There is no evidence of acute injury.] EXTREMITIES: Left lower extremity nonpitting edema up to the knee - Constitutional Vitals: Vital Signs - 12hr 08/28/17 08/29/17 08/29/17 22:00 00:28 00:29 Temperature Pulse Rate Respiratory 18 16 16 Rate Respiratory Rate [Abdomen] Blood Pressure O2 Sat by Pulse 97 Oximetry 08/29/17 08/29/17 08/29/17 04:37 04:39 04:40 Temperature 101.1 F H Pulse Rate 80 Respiratory 24 24 Rate Respiratory 24 Rate [Abdomen] Blood Pressure 159/73 O2 Sat by Pulse Oximetry 08/29/17 08/29/17 08/29/17 04:52 05:22 05:39 Temperature 100.8 F H 101.5 F H Pulse Rate 80 77 Respiratory 24 24 24 Rate Respiratory Rate [Abdomen] Blood Pressure 152/88 126/62 O2 Sat by Pulse 95 97 Oximetry 08/29/17 08/29/17 08/29/17 05:52 06:22 06:52 Temperature 101.4 F H 101.2 F H 100.7 F H Pulse Rate 78 71 69 Respiratory 24 24 24 Rate Respiratory Rate [Abdomen] Blood Pressure 130/61 122/58 141/67 O2 Sat by Pulse 99 97 Oximetry 08/29/17 08/29/17 08/29/17 07:15 07:41 08:20 Temperature 101.3 F H 100.4 F H 100.7 F H Pulse Rate 78 78 81 Respiratory 22 20 22 Rate Respiratory Rate [Abdomen] Blood Pressure 141/64 161/73 150/68 O2 Sat by Pulse 98 Oximetry 08/29/17 08:45 Temperature 102.3 F H Pulse Rate 82 Respiratory 22 Rate Respiratory Rate [Abdomen] Blood Pressure 143/64 O2 Sat by Pulse Oximetry - Labs CBC & Chem 7: 08/30/17 04:25 08/30/17 04:25 Labs: Abnormal lab results 08/28/17 08/28/17 08/28/17 Range/Units 11:41 16:47 20:01 Hgb (11.8-15.2) gm/dl Hct (35.5-45.6) % PT 21.8 H (12.2-14.9) Sec. INR 1.80 H (0.87-1.13) APTT 56.5 H (24.2-36.6) Sec. Potassium (3.6-5.0) mmol/L Carbon Dioxide (22-30) mmol/L BUN (9-20) mg/dL Glucose (75-100) mg/dL POC Glucose 176 H 206 H (70-105) Calcium (8.4-10.2) mg/dL Magnesium (1.7-2.3) mg/dL Crossmatch 08/28/17 08/29/17 08/29/17 Range/Units 20:43 00:07 02:30 Hgb 6.4 L (11.8-15.2) gm/dl Hct 20.6 L (35.5-45.6) % PT (12.2-14.9) Sec. INR (0.87-1.13) APTT (24.2-36.6) Sec. Potassium (3.6-5.0) mmol/L Carbon Dioxide (22-30) mmol/L BUN (9-20) mg/dL Glucose (75-100) mg/dL POC Glucose 259 H (70-105) Calcium (8.4-10.2) mg/dL Magnesium (1.7-2.3) mg/dL Crossmatch See Detail 08/29/17 08/29/17 Range/Units 02:56 07:25 Hgb (11.8-15.2) gm/dl Hct (35.5-45.6) % PT (12.2-14.9) Sec. INR (0.87-1.13) APTT (24.2-36.6) Sec. Potassium 3.5 L (3.6-5.0) mmol/L Carbon Dioxide 21 L (22-30) mmol/L BUN 21 H (9-20) mg/dL Glucose 214 H (75-100) mg/dL POC Glucose 220 H (70-105) Calcium 8.0 L (8.4-10.2) mg/dL Magnesium 1.60 L (1.7-2.3) mg/dL Crossmatch
[2017-08-29] MEDS: NORVASC PO SCH (09:35)
[2017-08-29] MEDS: ZESTRIL PO SCH (09:35)
[2017-08-29] MEDS: GLUCOPHAGE PO SCH ×2 (09:36→16:55)
[2017-08-29] MEDS: VANCOMYCIN 1,250 MG in NACL 0.9% 250ML 250 ML IV SCH (10:57)
--- NOTE | 2017-08-29 14:47 | Progress Note ---
Subjective Narrative: sleepy obtunted , sleepy noted ? yellow sclerae ,abd a little tight , taked to as to the poor condition , will obtain a KUB ,liver F T Objective Vital Signs - 12hr 08/29/17 08/29/17 08/29/17 04:37 04:39 04:40 Temperature 101.1 F H Pulse Rate 80 Respiratory 24 24 Rate Respiratory 24 Rate [Abdomen] Blood Pressure 159/73 O2 Sat by Pulse Oximetry 08/29/17 08/29/17 08/29/17 04:52 05:22 05:39 Temperature 100.8 F H 101.5 F H Pulse Rate 80 77 Respiratory 24 24 24 Rate Respiratory Rate [Abdomen] Blood Pressure 152/88 126/62 O2 Sat by Pulse 95 97 Oximetry 08/29/17 08/29/17 08/29/17 05:52 06:22 06:52 Temperature 101.4 F H 101.2 F H 100.7 F H Pulse Rate 78 71 69 Respiratory 24 24 24 Rate Respiratory Rate [Abdomen] Blood Pressure 130/61 122/58 141/67 O2 Sat by Pulse 99 97 Oximetry 08/29/17 08/29/17 08/29/17 07:15 07:41 08:20 Temperature 101.3 F H 100.4 F H 100.7 F H Pulse Rate 78 78 81 Respiratory 22 20 22 Rate Respiratory Rate [Abdomen] Blood Pressure 141/64 161/73 150/68 O2 Sat by Pulse 98 Oximetry 08/29/17 08/29/17 08/29/17 08:45 09:15 09:35 Temperature 102.3 F H 102.4 F H Pulse Rate 82 79 78 Respiratory 22 20 Rate Respiratory Rate [Abdomen] Blood Pressure 143/64 150/64 145/62 O2 Sat by Pulse Oximetry 08/29/17 08/29/17 08/29/17 09:36 09:45 10:45 Temperature 100.4 F H 97.6 F Pulse Rate 84 72 Respiratory 18 18 Rate Respiratory Rate [Abdomen] Blood Pressure 145/62 167/72 132/57 O2 Sat by Pulse Oximetry - Labs 08/28/17 20:43 08/29/17 02:56 Diabetes panel 08/29/17 Range/Units 02:56 Sodium 140 (137-145) mmol/L Potassium 3.5 L (3.6-5.0) mmol/L Chloride 103.7 (98-107) mmol/L Carbon Dioxide 21 L (22-30) mmol/L BUN 21 H (9-20) mg/dL Creatinine 1.1 (0.8-1.5) mg/dL Glucose 214 H (75-100) mg/dL Calcium 8.0 L (8.4-10.2) mg/dL Calcium panel 08/29/17 Range/Units 02:56 Calcium 8.0 L (8.4-10.2) mg/dL Phosphorus 3.10 (2.5-4.5) mg/dL Pituitary panel 08/29/17 Range/Units 02:56 Sodium 140 (137-145) mmol/L Potassium 3.5 L (3.6-5.0) mmol/L Chloride 103.7 (98-107) mmol/L Carbon Dioxide 21 L (22-30) mmol/L BUN 21 H (9-20) mg/dL Creatinine 1.1 (0.8-1.5) mg/dL Glucose 214 H (75-100) mg/dL Calcium 8.0 L (8.4-10.2) mg/dL Adrenal panel 08/29/17 Range/Units 02:56 Sodium 140 (137-145) mmol/L Potassium 3.5 L (3.6-5.0) mmol/L Chloride 103.7 (98-107) mmol/L Carbon Dioxide 21 L (22-30) mmol/L BUN 21 H (9-20) mg/dL Creatinine 1.1 (0.8-1.5) mg/dL Glucose 214 H (75-100) mg/dL Calcium 8.0 L (8.4-10.2) mg/dL
[2017-08-29] MEDS ORDERED: PROVENTIL IH ONE (15:39)
[2017-08-29 17:15] LABS: Hematocrit TNR % (35.5-45.6); Hemoglobin TNR gm/dl (11.8-15.2)
[2017-08-29 17:34] LABS: Alanine Aminotransferase 17 units/L (7-56); Albumin 1.5 g/dL (3.9-5); Albumin/Globulin Ratio 0.6 %; Alkaline Phosphatase 56 units/L (35-129); Total Protein 3.9 g/dL (6.3-8.2)
[2017-08-29 17:38] LABS: Bilirubin,Direct < 0.2 mg/dL (0-0.2); Bilirubin,Indirect 0.1 mg/dL
[2017-08-29 18:09] LABS: Hemoglobin 8.5 gm/dl (11.8-15.2)
[2017-08-29 18:10] LABS: Hematocrit 26.7 % (35.5-45.6)
[2017-08-29] MEDS ORDERED: INTRALIPID 20% 250 ML IV SCH (20:00)
[2017-08-29] MEDS ORDERED: TPN ADULT 2,016 ML IV SCH (20:00)
[2017-08-29] MEDS ORDERED: VANCOMYCIN 1,250 MG in NACL 0.9% 250ML 250 ML IV SCH (22:00)
[2017-08-30] MEDS: XOPENEX IH SCH ×4 (00:45→16:17)
[2017-08-30] MEDS: ZOSYN/NS 4.5GM/100ML 4.5 GM/100 ML VIAL IV SCH ×3 (01:08→18:42)
[2017-08-30] MEDS: TYLENOL PO PRN ×2 (01:08→18:24)
[2017-08-30 05:06] LABS: Hematocrit 25.2 % (35.5-45.6); Hemoglobin 7.9 gm/dl (11.8-15.2)
[2017-08-30 05:30] LABS: Anion Gap 20 mmol/L; BUN/Creatinine Ratio 22; Blood Urea Nitrogen 29 mg/dL (9-20); Calcium 8.5 mg/dL (8.4-10.2); Carbon Dioxide 18 mmol/L (22-30); Chloride 101.6 mmol/L (98-107); Glucose 203 mg/dL (75-100); Potassium 3.2 mmol/L (3.6-5.0); Sodium 136 mmol/L (137-145)
--- NOTE | 2017-08-30 10:09 | Progress Note ---
Assessment and Plan - Patient Problems (1) Colon cancer metastasized to multiple sites Current Visit: Yes Status: Acute Plan to address problem: CT scan of the abdomen reviewed again with radiologist Dr. Geronimo. Radiologist' s at this time is not convinced of any metastasis in the liver or the kidney as previously reported as suggesting a repeats of the CT of the abdomen with oral and IV contrast to further evaluate possible metastasis of previously identified mass in the abdomen. (2) Altered mental status Current Visit: Yes Status: Acute Qualifiers: Altered mental status type: transient alteration of awareness Qualified Code(s): R40.4 - Transient alteration of awareness Plan to address problem: Fever with change in mental status patient currently on IV antibiotics to continue the same. Follow up on the pending cultures (3) Fever Current Visit: Yes Status: Acute Qualifiers: Fever type: unspecified Qualified Code(s): R50.9 - Fever, unspecified Plan to address problem: Vancomycin and Zosyn over the past 3 days will continue on IV antibiotics for now onto additional further culture data is obtained we'll also obtain ID consultation at this point in view of ongoing fever in spite of IV antibiotics (4) Hypertension Current Visit: Yes Status: Acute Qualifiers: Hypertension type: essential hypertension Qualified Code(s): I10 - Essential (primary) hypertension Plan to address problem: Blood pressures is fairly stable on current medication would maintain the same at this time (5) Type 2 diabetes mellitus without complications Current Visit: Yes Status: Acute Plan to address problem: Sliding scale coverage with regular insulin and continue long-acting insulin. Patient also on IV TPN (6) Deep vein blood clot of left lower extremity Current Visit: Yes Status: Acute Plan to address problem: IV and cognition continues to be on hold in view of hi significant drop in hemoglobin status for 2 units of packed red blood cells yesterday we'll monitor hemoglobin and give additional transfusion hemoglobin drops below 7 Subjective Date of service: 08/30/17 Principal diagnosis: Fever and Partial intestinal obstrution with metstatic disease Interval history: Patient seen and examined chart reviewed. Patient's family in the room, patient stated that he is feeling better today but still short of breath poorly productive cough and still febrile MAXIMUM TEMPERATURE 100.3. Able to tolerate a few bites of his breakfast this morning, no nausea no vomiting reported had one loose bowel movements yesterday. Objective - Exam Narrative Exam: GENERAL: Ill looking, moderately pale, no jaundice and no cyanosis HEENT: Mucous membrane is moist, pharynx is clear NECK: Elevated JVD, no thyroidomegaly, no lymphadenopathy CHEST/LUNGS: Reduced air exchange bibasally, no wheezes no rales, no dullness to percussion [No chest wall tenderness, percussion is normal, symmetrical chest wall.] HEART/CARDIOVASCULAR: Tachycardia. Second heart sounds only does no audible murmur ABDOMEN: Abdomen is protuberant, diffusely tender, tender worse in the right upper quadrants and left lower quadrants and the periumbilical area. Healed laparotomy scar, no obvious hernia identified SKIN: Warm to touch no visible rash, no ecchymosis NEURO: Sleepy but easily arousable, oriented 3 able to respond appropriately to conversation. EXTREMITIES: Left lower extremity edema up to the knee, right lower extremity shows no edema, good peripheral pulses bilaterally no finger or toe clubbing. - Constitutional Vitals: Vital Signs - 12hr 08/29/17 08/29/17 08/30/17 23:12 23:14 01:08 Temperature Pulse Rate 88 88 Pulse Rate [ Anterior Bilateral Throughout] Respiratory 21 Rate Respiratory Rate [Anterior Bilateral Throughout] Blood Pressure 133/59 133/59 O2 Sat by Pulse Oximetry 08/30/17 08/30/17 08/30/17 02:08 05:04 07:48 Temperature 99.1 F 100.0 F H Pulse Rate 75 86 Pulse Rate [ Anterior Bilateral Throughout] Respiratory 20 18 22 Rate Respiratory Rate [Anterior Bilateral Throughout] Blood Pressure 138/63 169/77 O2 Sat by Pulse 99 96 Oximetry 08/30/17 08/30/17 08/30/17 08:40 08:49 08:52 Temperature Pulse Rate Pulse Rate [ 80 78 Anterior Bilateral Throughout] Respiratory Rate Respiratory 22 20 Rate [Anterior Bilateral Throughout] Blood Pressure O2 Sat by Pulse 98 Oximetry - Labs CBC & Chem 7: 08/30/17 04:25 08/30/17 04:25 Labs: Abnormal lab results 08/29/17 08/29/17 08/29/17 Range/Units 02:30 11:40 16:10 Hgb (11.8-15.2) gm/dl Hct (35.5-45.6) % Sodium (137-145) mmol/L Potassium (3.6-5.0) mmol/L Carbon Dioxide (22-30) mmol/L BUN (9-20) mg/dL Glucose (75-100) mg/dL POC Glucose 174 H (70-105) Total Protein 3.9 L D (6.3-8.2) g/dL Albumin 1.5 L (3.9-5) g/dL Vancomycin Trough (5.0-20.0) ug/mL Crossmatch See Detail 08/29/17 08/29/17 08/29/17 Range/Units 16:40 17:48 18:32 Hgb 8.5 L (11.8-15.2) gm/dl Hct 26.7 L D (35.5-45.6) % Sodium (137-145) mmol/L Potassium (3.6-5.0) mmol/L Carbon Dioxide (22-30) mmol/L BUN (9-20) mg/dL Glucose (75-100) mg/dL POC Glucose 178 H (70-105) Total Protein (6.3-8.2) g/dL Albumin (3.9-5) g/dL Vancomycin Trough 25.5 H (5.0-20.0) ug/mL Crossmatch 08/29/17 08/30/17 08/30/17 Range/Units 22:19 04:25 04:25 Hgb 7.9 L (11.8-15.2) gm/dl Hct 25.2 L (35.5-45.6) % Sodium 136 L (137-145) mmol/L Potassium 3.2 L (3.6-5.0) mmol/L Carbon Dioxide 18 L (22-30) mmol/L BUN 29 H (9-20) mg/dL Glucose 203 H (75-100) mg/dL POC Glucose 247 H (70-105) Total Protein (6.3-8.2) g/dL Albumin (3.9-5) g/dL Vancomycin Trough (5.0-20.0) ug/mL Crossmatch 08/30/17 Range/Units 07:53 Hgb (11.8-15.2) gm/dl Hct (35.5-45.6) % Sodium (137-145) mmol/L Potassium (3.6-5.0) mmol/L Carbon Dioxide (22-30) mmol/L BUN (9-20) mg/dL Glucose (75-100) mg/dL POC Glucose 193 H (70-105) Total Protein (6.3-8.2) g/dL Albumin (3.9-5) g/dL Vancomycin Trough (5.0-20.0) ug/mL Crossmatch
[2017-08-30] MEDS ORDERED: D50W (25GM) Syringe IV PRN ×2 (10:15→11:00)
[2017-08-30] MEDS: PERIACTIN PO SCH ×2 (10:27→22:32)
[2017-08-30] MEDS: NORVASC PO SCH (10:27)
[2017-08-30] MEDS: GLUCOPHAGE PO SCH ×2 (10:27→18:23)
[2017-08-30] MEDS: TENORMIN PO SCH ×2 (10:28→22:33)
[2017-08-30] MEDS: ZESTRIL PO SCH (10:28)
[2017-08-30] MEDS ORDERED: K-DUR PO NR (10:30)
[2017-08-30] MEDS: ROXICODONE PO PRN ×2 (10:38→22:32)
[2017-08-30] MEDS: CARDURA PO SCH ×2 (10:49→22:32)
--- NOTE | 2017-08-30 11:43 | Vascular Lab Report ---
RIGHT UPPER EXTREMITY VENOUS DUPLEX: REASON FOR EXAM: Pain and swelling of the right upper extremity COMMENTS ON THE RIGHT: Deep venous thrombus noted in the subclavian vein around the PICC line. The remaining veins visualized are freely compressible without evidence of internal echogenicity. Spontaneous and phasic flow is present proximally. COMMENTS ON THE LEFT: The subclavian and internal jugular veins are free of thrombus. IMPRESSION: Deep venous thrombosis in the right upper extremity
--- NOTE | 2017-08-30 11:46 | Vascular Lab Report ---
Left Lower Extremity Venous Duplex Study: Reason for Exam: Pain and swelling of the left lower extremity. Comments on the Right: A limited duplex study was done of the proximal veins of the right lower extremity. All veins visualized are freely compressible without evidence of internal echogenicity. Flow is spontaneous and phasic throughout. No evidence of acute or chronic thrombus is seen in any of the vessels visualized. Comments on the Left: Deep venous thrombosis is noted in the popliteal, femoral, common femoral vein. Superficial thrombosis noted in the proximal greater saphenous vein.. The remaining veins visualized are freely compressible without evidence of internal echogenicity. Spontaneous and phasic flow is a proximally. Impression: Deep and superficial venous thrombosis in left lower extremity
--- NOTE | 2017-08-30 16:37 | Cat Scan Report ---
FINAL REPORT EXAM: CT ABDOMEN PELVIS W CON HISTORY: Colon cancer with possible metastasis TECHNIQUE: CT of the abdomen and pelvis with IV contrast. Coronal and sagittal reconstructed imaging provided. PRIORS: CT abdomen pelvis August 27, 2017. FINDINGS: ABDOMEN: Patchy consolidation in both lower lungs. Underlying mass not excluded. Right is more prominent than the left. Trace bilateral pleural effusions identified. Cardiomegaly noted. Stomach: Unremarkable. Liver: 21 cm. No distinct lesions. No abnormal enhancement. Gallbladder: Unremarkable. Spleen: Unremarkable. Pancreas: Unremarkable. Adrenals: Unremarkable. Kidneys: Cortical thinning and decreased cortical enhancement the inferior left kidney identified. There is no left hydronephrosis. Otherwise the rest of the left kidney demonstrates symmetrical cortical enhancement with the right kidney. No right hydronephrosis noted. Subcentimeter hypodensities in both kidneys statistically likely represent cysts but are too small to accurately characterize. There is no abdominal aortic aneurysm. No dissection. [id number] atherosclerotic disease noted. IVC is unremarkable. Few mildly prominent periportal, periaortic, and retroperitoneal lymph nodes identified. Similar to prior. Nonspecific. Possibly reactive. [id number] disease in both common iliacs. There is a mural thrombus in the left mid common iliac on series 3:20 which may be causing a moderate to severe stenosis. Multiple surgical sutures and postsurgical changes are present within the large and small bowel loops. Series 3:90-106 demonstrates a heterogeneous soft tissue lesion measuring 5.3 x 6.8 mm which appears to be involving a loop of bowel. Thin sliver contrast on series 3:95 may represent a small residual lumen of what appears to be a loop of small bowel. Uncertain if there is a colonic at stenosis at this area. Proximal dilatation of the small bowel loops identified. Remaining colon demonstrates significantly distended sigmoid colon which extends down into the rectum. Overall diameter measures 9.9 mm. The rest of the colonic bowel loops are not clearly evident and may have been surgically removed. There may be a focal area of anastomosis in the mid abdomen on series 3:95. Mild fluid is present within the abdomen. Mesenteric stranding identified. No mesenteric adenopathy noted. Moderate to severe anasarca identified. Fluid in the left lateral abdominal wall identified. Scarring or stranding of the midline anterior abdominal wall noted. Series 3: 122 demonstrates ill-defined attenuation noted within the anterior abdominal wall and small pockets of gas in the subcutaneous fat. Findings could represent postsurgical changes. There is concern for a phlegmon or abscess within the abdominal wall. There could be a fistulous tract with the adjacent small bowel loops. There is some contrast within the lesion. There is postsurgical changes in the abdominal wall consistent with prior ventral hernia repair and a right lower quadrant colostomy. PELVIS: Rectal anal region appears relatively unremarkable. Mildly distended. Lobulated appearance to the bladder may represent some areas of developing diverticulum or diverticuli. No obvious wall thickening. Heterogeneous enlarged prostate noted. No pelvic mass or adenopathy. Inguinal regions are unremarkable. There is no pelvic mass or adenopathy. Inguinal regions are unremarkable. Filling defect in the left superficial femoral vein extending superiorly toward the left common iliac vein is suspicious for a nonocclusive thrombus. Bones: No suspicious osseous lesions on this limited examination of the skeleton. Metastatic disease better evaluated with bone scan. Degenerative changes are in the spine. IMPRESSION: Patchy consolidation in both lower lungs. Underlying mass is not excluded. Right is more prominent compared to the prior. Trace bilateral pleural effusions. Stable cardiomegaly. Enlarged liver. No suspicious lesions or enhancement. Cortical thinning of the inferior left kidney. Unchanged compared to the prior. A pyelonephritis or infiltrating process is not excluded. Inferior to left kidney in the nearby left abdominal bowel loops there is a heterogeneous soft tissue lesion which is suspicious for mass and is causing a focal stenosis of the bowel loop in this region. Pre stenotic dilatation of the bowel loops identified. There does appear to be passage of contrast through this stenosis. Significant postsurgical changes and artifacts are present within the abdomen. Remaining sigmoid colon is significantly distended down to the rectum which could represent a colonic ileus or laxative abuse. A distal rectal or anal lesion is not excluded. Small bowel anastomosis with the remaining colonic bowel loop is not well visualized. A lesion at the anastomosis is not entirely excluded. In the anterior abdominal wall in the lower abdomen/pelvis, there is a soft tissue lesion with surrounding stranding and pockets of gas which could represent postsurgical changes but there is concern for possible phlegmon or abscess. Some ill-defined area of increased density noted within this lesion could represent contrast and a fistula with the underlying bowel loops is not excluded. A lesion in the a anterior abdominal wall is not excluded. Anasarca and mild mesenteric edema noted. Suspect nonocclusive thrombus in the left superficial femoral vein extending down to the left common femoral vein.
[2017-08-30] MEDS: TPN ADULT 2,016 ML IV SCH (20:07)
[2017-08-30] MEDS: LEVEMIR SUB-Q SCH (22:35)
[2017-08-30] MEDS: VANCOMYCIN/NS 1 GM/250 ML 1 GM/250 ML BAG IV SCH (23:47)
[2017-08-31] MEDS: TYLENOL PO PRN ×4 (00:20→22:43)
[2017-08-31] MEDS: XOPENEX IH SCH ×3 (00:34→17:53)
[2017-08-31] MEDS: ZOSYN/NS 4.5GM/100ML 4.5 GM/100 ML VIAL IV SCH ×3 (02:07→17:36)
[2017-08-31 04:44] LABS: Hematocrit 23.8 % (35.5-45.6); Hemoglobin 7.8 gm/dl (11.8-15.2); Mean Corpuscular HGB Conc 33 % (32-34); Mean Corpuscular Hemoglobin 26 pg (28-32); Mean Corpuscular Volume 80 fl (84-94); Red Blood Count 2.99 M/mm3 (3.65-5.03); Red Cell Distribution Width 22.7 % (13.2-15.2); White Blood Count 9.7 K/mm3 (4.5-11.0)
[2017-08-31 04:45] LABS: Basophils % (Auto) 0.6 % (0.0-1.8); Eosinophils % (Auto) 1.7 % (0.0-4.3); Platelet Count 270 K/mm3 (140-440)
[2017-08-31 05:18] LABS: Alanine Aminotransferase 28 units/L (7-56); Albumin 2.2 g/dL (3.9-5); Albumin/Globulin Ratio 0.6 %; Alkaline Phosphatase 97 units/L (35-129); Anion Gap 19 mmol/L; BUN/Creatinine Ratio 19; Blood Urea Nitrogen 25 mg/dL (9-20); Calcium 8.6 mg/dL (8.4-10.2); Carbon Dioxide 19 mmol/L (22-30); Glucose 53 mg/dL (75-100); Potassium 3.5 mmol/L (3.6-5.0); Sodium 145 mmol/L (137-145)
[2017-08-31] MEDS ORDERED: D50W (25GM) Vial 0 ML IV ONE (07:34)
[2017-08-31] MEDS: GLUCOPHAGE PO SCH ×2 (08:36→17:41)
--- NOTE | 2017-08-31 10:31 | Consultation ---
History of Present Illness - Reason for Consult Consult date: 08/31/17 fever Requesting physician: ALDO HERRING - History of Present Illness 66 years old male with history of DM, DVT, GERD, HTN, DVT x 2 and inoperable colon cancer s/p colon resection, small bowel bypass, fistula repair, colostomy reversal in several stages most recently Jul 2017. Patient noted subjective fever for 2 weeks, checked temp at some point and it went to 102. He also feeling nauseated, anorexic and loosing weight. also noted he was lethargic and brought him to the ED on 08/27/17. He also has been c/o progressive swelling of left leg and right arm. Upon admission, temp 100.7, HR 95, BP 181/98, WBC 14.6, Hg 8.4, bands 19%. CXR was negative. CT head negative. CT abd showed phlegmon versus abscess of midabdominal wall, sigmoid colon distention, mass formation near to the left kidney, left kidney cortical thinning ? pyelo and patchy bibasilar infiltrates and enlarged liver. US showed positive DVT left leg and right arm. Microbiology: Blood cultures: 08/27 ngtd Urine cultures: Respiratory cultures: Wound cultures: Stool cultures: Other: Current Antimicrobials: Zosyn 08/27 Vancomycin 08/30 Previous Antimicrobials: Past History Past Medical History: diabetes, hypertension, other (colon cancer). denies: No medical history Past Surgical History: bowel surgery Social history: smoking, alcohol abuse, prescription drug abuse Family history: no significant family history Medications and Allergies Allergies Allergy/AdvReac Type Severity Reaction Status Date / Time No Known Allergies Allergy Verified 01/01/15 13:25 Home Medications Medication Instructions Recorded Confirmed Last Taken Type Amlodipine Besylate/Benazepril 1 tab PO DAILY 01/01/15 08/27/17 08/26/17 History [amLODIPine-Benazepril 10/20 mg] Atenolol [Atenolol] 100 mg PO BID 01/01/15 08/27/17 08/26/17 History Insulin Glargine,Hum.rec.anlog 20 units SUB-Q HS 01/01/15 08/27/17 08/26/17 History [Lantus Solostar] Omeprazole [Omeprazole] 20 mg PO DAILY 01/01/15 08/27/1717 History glyBURIDE/METFORMIN HCL 10 tab PO DAILY 01/01/15 08/27/17 08/26/17 History [Glyburide-Metformin 5-500 mg] Doxazosin [Cardura] 2 mg PO BID 08/27/17 08/27/17 08/26/17 History Insulin Glargine [Lantus] 20 unit SUB-Q QHS 08/27/17 08/27/17 08/26/17 History Simethicone [Gas Relief] 80 mg PO ACHS 08/27/17 08/27/17 08/26/17 History Warfarin [Coumadin] 7.5 mg PO QDAY 08/27/17 08/27/17 08/25/17 History metFORMIN [Glucophage] 500 mg PO BID 08/27/17 08/27/17 08/26/17 History oxyCODONE [Roxicodone] 5 mg PO Q4HR PRN 08/27/17 08/27/17 08/26/17 History Active Meds: Active Medications Acetaminophen (Tylenol) 650 mg PO Q4H PRN PRN Reason: Pain, Mild (1-3) Last Admin: 08/31/17 06:11 Dose: 650 mg Amlodipine Besylate (Norvasc) 5 mg PO QDAY [facility] Last Admin: 08/30/17 10:27 Dose: 5 mg Atenolol (Tenormin) 100 mg PO BID [facility] Last Admin: 08/30/17 22:33 Dose: 100 mg Cyproheptadine HCl (Periactin) 4 mg PO BID [facility] Last Admin: 08/30/17 22:32 Dose: 4 mg Dextrose (D50w (25gm) Syringe) 50 ml IV PRN PRN PRN Reason: Hypoglycemia Doxazosin Mesylate (Cardura) 2 mg PO BID [facility] Last Admin: 08/30/17 22:32 Dose: 2 mg Piperacillin Sod/Tazobactam Sod (Zosyn/Ns 4.5gm/100ml) 4.5 gm in 100 mls @ 200 mls/hr IV Q8H [facility] Last Admin: 08/31/17 02:07 Dose: 200 mls/hr Heparin Sodium/Sodium Chloride (Heparin/ 0.45% Nacl-25,000 Unit/500 Ml) 25,000 unit in 500 mls @ 26 mls/hr IV TITR ALEC; 1,300 UNITS/HR PRN Reason: Protocol Vancomycin HCl (Vancomycin/Ns 1 Gm/250 Ml) 1 gm in 250 mls @ 166.667 mls/hr IV Q12H [facility] Last Admin: 08/30/17 23:47 Dose: 166.667 mls/hr Amino Acids/Electrolytes/Dextrose (Tpn Adult) 2,016 mls @ 84 mls/hr IV DAILY@ 2000 ALEC PRN Reason: Protocol Stop: 08/31/17 19:59 Last Admin: 08/30/17 20:07 Dose: Not Given Insulin Detemir (Levemir) 20 units SUB-Q QHS [facility] Last Admin: 08/30/17 22:35 Dose: 20 units Levalbuterol HCl (Xopenex) 1.25 mg IH Q8HRT [facility] Last Admin: 08/31/17 10:28 Dose: 1.25 mg Lisinopril (Zestril) 20 mg PO QDAY [facility] Last Admin: 08/30/17 10:28 Dose: 20 mg Metformin HCl (Glucophage) 500 mg PO BIDDIAB [facility] Last Admin: 08/30/17 18:23 Dose: 500 mg Oxycodone HCl (Roxicodone) 5 mg PO Q4HR PRN PRN Reason: Pain Last Admin: 08/30/17 22:32 Dose: 5 mg Review of Systems All systems: negative (as per HPI rest negative) Physical Examination - Physical Exam Narrative exam: General appearance: Alert in NAD, conversant Eyes: anicteric sclerae, moist conjunctivae; no lid-lag; PERRLA HENT: Atraumatic; oropharynx clear Neck: Trachea midline; supple, no thyromegaly or lymphadenopathy Lungs: CTA CV: RRR Abdomen: Soft, +midline old scar with marked induration and tenderness Extremities: marked left leg edema Skin: Normal temperature, turgor and texture; no rash, ulcers or subcutaneous nodules Psych: Appropriate affect, alert and oriented to person, place and time. Neuro: alert and oriented x 3. Moving all extermities Lines: - Constitutional Vitals: Vital Signs Temp Pulse Resp BP Pulse Ox 99.5 F 81 18 134/60 96 08/31/17 09:45 08/31/17 09:45 08/31/17 09:45 08/31/17 09:45 08/31/17 09:45 Temperature -Last 24 Hours Temperature 99.5 F Temperature 99.5 F Temperature 100.1 F Temperature 100.4 F Temperature 100.3 F Temperature 101.6 F Results - Labs CBC & Chem 7: 08/31/17 04:28 08/31/17 04:28 Labs: Abnormal lab results 08/30/17 08/30/17 08/30/17 Range/Units 11:53 16:47 21:36 RBC (3.65-5.03) M/mm3 Hgb (11.8-15.2) gm/dl Hct (35.5-45.6) % MCV (84-94) fl MCH (28-32) pg RDW (13.2-15.2) % [place] % (Auto) (0.0-7.3) % [place] # (0.0-0.8) K/mm3 Potassium (3.6-5.0) mmol/L Chloride (98-107) mmol/L Carbon Dioxide (22-30) mmol/L BUN (9-20) mg/dL Glucose (75-100) mg/dL POC Glucose 246 H 159 H 110 H (70-105) Total Protein (6.3-8.2) g/dL Albumin (3.9-5) g/dL 08/31/17 08/31/17 08/31/17 Range/Units 04:28 04:28 07:31 RBC 2.99 L (3.65-5.03) M/mm3 Hgb 7.8 L (11.8-15.2) gm/dl Hct 23.8 L (35.5-45.6) % MCV 80 L (84-94) fl MCH 26 L (28-32) pg RDW 22.7 H (13.2-15.2) % [place] % (Auto) 13.0 H (0.0-7.3) % [place] # 1.3 H (0.0-0.8) K/mm3 Potassium 3.5 L (3.6-5.0) mmol/L Chloride 111.0 H (98-107) mmol/L Carbon Dioxide 19 L (22-30) mmol/L BUN 25 H (9-20) mg/dL Glucose 53 L (75-100) mg/dL POC Glucose < 40 L (70-105) Total Protein 6.0 L D (6.3-8.2) g/dL Albumin 2.2 L (3.9-5) g/dL 08/31/17 08/31/17 Range/Units 07:34 09:10 RBC (3.65-5.03) M/mm3 Hgb (11.8-15.2) gm/dl Hct (35.5-45.6) % MCV (84-94) fl MCH (28-32) pg RDW (13.2-15.2) % [place] % (Auto) (0.0-7.3) % [place] # (0.0-0.8) K/mm3 Potassium (3.6-5.0) mmol/L Chloride (98-107) mmol/L Carbon Dioxide (22-30) mmol/L BUN (9-20) mg/dL Glucose (75-100) mg/dL POC Glucose 42 L 64 L (70-105) Total Protein (6.3-8.2) g/dL Albumin (3.9-5) g/dL Assessment and Plan Assessment: 1) Sepsis: Present on admission, manifested by fever, tachycardia, leukocytosis , bandemia. Etiology most likely abdominal wall infection ? abscess ? fistula ? +/- presumed pneumonia 2) Abdominal wall infection ? abscess ? fistula 3) Presumed bilateral pneumonia 4) DVTs 5) Colon cancer s/p colon resection, small bowel bypass, fistula repair, colostomy reversal in several stages most recently Jul 2017. 6) DM Plan: -follow-up blood cultures -obtain C-reactive protein (CRP) -needs surgical eval preferably with his primary surgical team in view of complex surgical history and current CT findings -continue zosyn and vancomycin I am rounding tomorrow Thank you Dr Herring for your consultation, will follow up with you. Annie Stanford MD Infectious Diseases Specialist [facility] M [phone] O [phone]
[2017-08-31] MEDS: CARDURA PO SCH ×2 (10:37→22:42)
[2017-08-31] MEDS: PERIACTIN PO SCH ×2 (10:37→22:42)
--- NOTE | 2017-08-31 10:39 | XRay Report ---
AP CHEST: HISTORY: Left arm PICC placement The right arm PICC has been replaced with a left arm PICC which terminates in the lower SVC. Mild cardiomegaly and mild central pulmonary venous congestion are stable. The lungs are generally clear. IMPRESSION: Left arm PICC terminates in the lower SVC. Otherwise no change since the exam 4 days ago.
[2017-08-31] MEDS: TENORMIN PO SCH ×2 (10:40→22:42)
[2017-08-31] MEDS: VANCOMYCIN/NS 1 GM/250 ML 1 GM/250 ML BAG IV SCH ×2 (11:21→22:24)
[2017-08-31] MEDS: TPN ADULT 2,016 ML IV SCH (12:42)
[2017-08-31] MEDS: ROXICODONE PO PRN ×2 (14:15→22:42)
[2017-08-31] MEDS: ZESTRIL PO SCH (14:18)
[2017-08-31] MEDS: NORVASC PO SCH (14:18)
--- NOTE | 2017-08-31 15:15 | Progress Note ---
Assessment and Plan - Patient Problems (1) Colon cancer metastasized to multiple sites Current Visit: Yes Status: Ruled-out Plan to address problem: Folowup CT with oral contrast did not show any mets in Liver or Kidney as previously reported by another Radiologist over the past weekend . Possible pneumonis vs atelectasis in the lung but no mets .Result discussed with patient , his and his brother . (2) Altered mental status Current Visit: Yes Status: Resolved Qualifiers: Altered mental status type: transient alteration of awareness Qualified Code(s): R40.4 - Transient alteration of awareness Plan to address problem: Mental status now improved and less disorientation . (3) Fever Current Visit: Yes Status: Acute Qualifiers: Fever type: unspecified Qualified Code(s): R50.9 - Fever, unspecified Plan to address problem: CT abdomen suggesting possible collection or fistula with connection to abdominal wall . Will continue to monitor .Patient may need exploration of abdominal wall collection for possible abscess . (4) Hypertension Current Visit: Yes Status: Acute Qualifiers: Hypertension type: essential hypertension Qualified Code(s): I10 - Essential (primary) hypertension Plan to address problem: Blood pressures is fairly stable on current medication would maintain the same at this time (5) Type 2 diabetes mellitus without complications Current Visit: Yes Status: Acute Plan to address problem: Patient reported with Hypoglycemia this morning ,will hold long acting Insulin Levermir and continue sliding scale insulin for now (6) Deep vein blood clot of left lower extremity Current Visit: Yes Status: Acute Subjective Date of service: 08/31/17 Principal diagnosis: Fever and Partial intestinal obstrution with metstatic disease Interval history: Patient stated that he feels better overall and denied any new complaints beside ongoing shortness of breath ,strong enough to want to get out of bed .Still febrile Tmax 101 ,no nausea or vomiting .Cough is poorly productive and no chest pain . Objective - Exam Narrative Exam: GENERAL: Ill looking, sleepy but responds to name call and appropriate responding to questions appropriately not in distress HEENT: [Head examination showed normocephalic. Patient is not pale, not jaundiced, and not cyanosed.] [Mucous membrane is moist, pharynx is clear, no exudates or hemorrhage. Dentition is normal.] NECK: [Supple. Neck showed good range of motion. There is no adenopathy noted. No jugular venous distention and no thyromegaly.] [Neck auscultation showed no carotid bruit.] CHEST/LUNGS: Poor Air exchange bibasally, no wheezes no rales. HEART/CARDIOVASCULAR: [No murmur. Regular rate and rhythm. S1 and S2 only, no S3 gallop, no S4.] ABDOMEN: [Abdomen is protuberant, diffusely tender to deep palpation, active bowel sounds. Surgical site well-healed, diffusely poorly palpated mass in the left lower quadrant SKIN: [There is no rash. There is no edema. There is no diaphoresis.] NEURO: [The patient is awake, alert, and oriented. The patient is cooperative. The patient has no focal neurologic deficits. Cranial nerves 2-12 grossly normal, power is 5/5 in all the extremities tested. The patient has normal speech and gait.] MUSCULOSKELETAL: [There is no tenderness or deformity. There is no limitation range of motion. There is no evidence of acute injury.] EXTREMITIES: Left lower extremity nonpitting edema up to the knee - Constitutional Vitals: Vital Signs - 12hr 08/31/17 08/31/17 08/31/17 05:38 07:24 09:45 Temperature 100.1 F H 99.5 F 99.5 F Pulse Rate 79 80 81 Pulse Rate [ Anterior Bilateral Throughout] Pulse Rate [ Right Radial] Respiratory 18 20 18 Rate Respiratory Rate [Anterior Bilateral Throughout] Blood Pressure 135/61 133/59 134/60 Blood Pressure [Right] O2 Sat by Pulse 98 96 96 Oximetry 08/31/17 08/31/17 08/31/17 10:00 10:29 10:30 Temperature Pulse Rate Pulse Rate [ 82 Anterior Bilateral Throughout] Pulse Rate [ 86 Right Radial] Respiratory 18 Rate Respiratory 16 Rate [Anterior Bilateral Throughout] Blood Pressure Blood Pressure [Right] O2 Sat by Pulse 99 Oximetry 08/31/17 08/31/17 08/31/17 10:37 10:40 10:46 Temperature Pulse Rate 81 81 Pulse Rate [ 86 Anterior Bilateral Throughout] Pulse Rate [ Right Radial] Respiratory Rate Respiratory 18 Rate [Anterior Bilateral Throughout] Blood Pressure 134/60 134/60 Blood Pressure [Right] O2 Sat by Pulse Oximetry 08/31/17 08/31/17 08/31/17 14:02 14:18 15:09 Temperature 100.8 F H Pulse Rate 88 88 Pulse Rate [ Anterior Bilateral Throughout] Pulse Rate [ Right Radial] Respiratory 20 20 Rate Respiratory Rate [Anterior Bilateral Throughout] Blood Pressure 161/77 Blood Pressure 161/77 [Right] O2 Sat by Pulse 96 Oximetry - Labs CBC & Chem 7: 08/31/17 04:28 08/31/17 04:28 Labs: Abnormal lab results 08/30/17 08/30/17 08/31/17 Range/Units 16:47 21:36 04:28 RBC (3.65-5.03) M/mm3 Hgb (11.8-15.2) gm/dl Hct (35.5-45.6) % MCV (84-94) fl MCH (28-32) pg RDW (13.2-15.2) % [place] % (Auto) (0.0-7.3) % [place] # (0.0-0.8) K/mm3 Potassium 3.5 L (3.6-5.0) mmol/L Chloride 111.0 H (98-107) mmol/L Carbon Dioxide 19 L (22-30) mmol/L BUN 25 H (9-20) mg/dL Glucose 53 L (75-100) mg/dL POC Glucose 159 H 110 H (70-105) Total Protein 6.0 L D (6.3-8.2) g/dL Albumin 2.2 L (3.9-5) g/dL 08/31/17 08/31/17 08/31/17 Range/Units 04:28 07:31 07:34 RBC 2.99 L (3.65-5.03) M/mm3 Hgb 7.8 L (11.8-15.2) gm/dl Hct 23.8 L (35.5-45.6) % MCV 80 L (84-94) fl MCH 26 L (28-32) pg RDW 22.7 H (13.2-15.2) % [place] % (Auto) 13.0 H (0.0-7.3) % [place] # 1.3 H (0.0-0.8) K/mm3 Potassium (3.6-5.0) mmol/L Chloride (98-107) mmol/L Carbon Dioxide (22-30) mmol/L BUN (9-20) mg/dL Glucose (75-100) mg/dL POC Glucose < 40 L 42 L (70-105) Total Protein (6.3-8.2) g/dL Albumin (3.9-5) g/dL 08/31/17 Range/Units 09:10 RBC (3.65-5.03) M/mm3 Hgb (11.8-15.2) gm/dl Hct (35.5-45.6) % MCV (84-94) fl MCH (28-32) pg RDW (13.2-15.2) % [place] % (Auto) (0.0-7.3) % [place] # (0.0-0.8) K/mm3 Potassium (3.6-5.0) mmol/L Chloride (98-107) mmol/L Carbon Dioxide (22-30) mmol/L BUN (9-20) mg/dL Glucose (75-100) mg/dL POC Glucose 64 L (70-105) Total Protein (6.3-8.2) g/dL Albumin (3.9-5) g/dL
[2017-08-31] MEDS ORDERED: TPN ADULT 2,016 ML IV SCH (20:00)
[2017-08-31] MEDS ORDERED: INTRALIPID 20% 250 ML IV SCH (20:00)
[2017-08-31] MEDS: NOVOLOG SUB-Q SCH (22:53)
[2017-09-01] MEDS: ZOSYN/NS 4.5GM/100ML 4.5 GM/100 ML VIAL IV SCH ×3 (00:06→17:43)
[2017-09-01] MEDS: XOPENEX IH SCH ×4 (01:08→21:33)
[2017-09-01 04:34] LABS: Hematocrit 26.3 % (35.5-45.6); Hemoglobin 8.4 gm/dl (11.8-15.2)
[2017-09-01] MEDS: ROXICODONE PO PRN ×2 (04:34→18:56)
[2017-09-01] MEDS: TYLENOL PO PRN (04:34)
[2017-09-01 04:50] LABS: Anion Gap 22 mmol/L; BUN/Creatinine Ratio 19; Blood Urea Nitrogen 23 mg/dL (9-20); Calcium 9.3 mg/dL (8.4-10.2); Carbon Dioxide 17 mmol/L (22-30); Glucose 187 mg/dL (75-100); Potassium 4.2 mmol/L (3.6-5.0); Sodium 144 mmol/L (137-145)
[2017-09-01 04:53] LABS: Triglycerides 210 mg/dL (2-149)
--- NOTE | 2017-09-01 08:11 | Progress Note ---
Assessment and Plan - Fever likely from anterior abdominal wall abscess vs fistula: F/u with blood cx and urine cx results. Commence iv antibx- Vanc and Zosyn and zofran. Lactic acid was normal. IP consult for possible drainage. Discussed with IDDr. Caballero - History of colon cancer: s/p gut resection. with recent abdominal surgery that showed no evidence of met rather an intaabdominal mass for which a diversion was made to relieve intestinal obstruction - Abdominal mass not likely malignant as there was no evidence of met per review of recent CT abdomen and previous PET scam 06/2017 - DM: Consistent carbohydrate meal and SSI - DVT left common femoral vein: Commence Lovenox 1mg per kg q 12 - Cough: Commence Hyromet and obtain CXR - GI prophyalxis with Pepcid Subjective Date of service: 09/01/17 Principal diagnosis: Fever and Partial intestinal obstrution with metstatic disease Interval history: more alert Objective - Constitutional Vitals: Vital Signs - 12hr 08/31/17 08/31/17 09/01/17 22:00 22:12 01:00 Temperature 102.3 F H Pulse Rate 94 H Pulse Rate [ 83 Anterior Bilateral Throughout] Respiratory 22 Rate Respiratory 20 Rate [Anterior Bilateral Throughout] Blood Pressure 165/81 O2 Sat by Pulse 94 94 Oximetry 09/01/17 09/01/17 09/01/17 01:12 02:24 02:37 Temperature 100.6 F H Pulse Rate Pulse Rate [ 85 Anterior Bilateral Throughout] Respiratory 22 Rate Respiratory 20 Rate [Anterior Bilateral Throughout] Blood Pressure O2 Sat by Pulse Oximetry 09/01/17 09/01/17 04:24 07:28 Temperature 101.0 F H 98.4 F Pulse Rate 83 72 Pulse Rate [ Anterior Bilateral Throughout] Respiratory 20 18 Rate Respiratory Rate [Anterior Bilateral Throughout] Blood Pressure 130/72 127/66 O2 Sat by Pulse 96 98 Oximetry General appearance: Present: no acute distress, well-nourished - EENT Eyes: PERRL, EOM intact Ears: bilateral: normal - Neck Neck: supple, normal ROM - Respiratory Respiratory effort: normal Respiratory: bilateral: CTA - Cardiovascular Rhythm: regular Heart Sounds: Present: S1 & S2. Absent: gallop, rub Extremities: pulses intact, No edema, normal color, Full ROM - Gastrointestinal General gastrointestinal: Present: soft, non-tender, non-distended, normal bowel sounds - Genitourinary Male genitourinary: normal - Integumentary Integumentary: clear, warm, dry - Musculoskeletal Musculoskeletal: 1, strength equal bilaterally - Neurologic Neurologic: moves all extremities - Psychiatric Psychiatric: memory intact, appropriate mood/affect, intact judgment & insight - Labs CBC & Chem 7: 09/01/17 04:05 09/02/17 05:15 Labs: Abnormal lab results 08/31/17 08/31/17 08/31/17 Range/Units 07:31 07:34 09:10 Hgb (11.8-15.2) gm/dl Hct (35.5-45.6) % Chloride (98-107) mmol/L Carbon Dioxide (22-30) mmol/L BUN (9-20) mg/dL Glucose (75-100) mg/dL POC Glucose < 40 L 42 L 64 L (70-105) Triglycerides (2-149) mg/dL 08/31/17 08/31/17 09/01/17 Range/Units 16:45 22:56 04:05 Hgb 8.4 L (11.8-15.2) gm/dl Hct 26.3 L (35.5-45.6) % Chloride (98-107) mmol/L Carbon Dioxide (22-30) mmol/L BUN (9-20) mg/dL Glucose (75-100) mg/dL POC Glucose 173 H 167 H (70-105) Triglycerides (2-149) mg/dL 09/01/17 09/01/17 Range/Units 04:05 07:26 Hgb (11.8-15.2) gm/dl Hct (35.5-45.6) % Chloride 109.0 H (98-107) mmol/L Carbon Dioxide 17 L (22-30) mmol/L BUN 23 H (9-20) mg/dL Glucose 187 H (75-100) mg/dL POC Glucose 256 H (70-105) Triglycerides 210 H (2-149) mg/dL
[2017-09-01] MEDS ORDERED: HYDROMET PO PRN (08:29)
[2017-09-01] MEDS: NOVOLOG SUB-Q SCH ×3 (09:30→17:12)
[2017-09-01] MEDS: TENORMIN PO SCH ×2 (09:32→22:20)
[2017-09-01] MEDS: PERIACTIN PO SCH ×2 (09:32→22:20)
[2017-09-01] MEDS: CARDURA PO SCH ×2 (09:33→22:20)
[2017-09-01] MEDS: GLUCOPHAGE PO SCH ×2 (09:34→17:42)
[2017-09-01] MEDS: ZESTRIL PO SCH (09:35)
[2017-09-01] MEDS: NORVASC PO SCH (09:35)
--- NOTE | 2017-09-01 10:31 | Progress Note ---
Assessment and Plan Assessment: 1) Sepsis: still high fever. Etiology most likely abdominal wall infection ? abscess ? fistula ? +/- presumed pneumonia 2) Abdominal wall infection ? abscess ? fistula 3) Presumed bilateral pneumonia 4) DVTs 5) Colon cancer s/p colon resection, small bowel bypass, fistula repair, colostomy reversal in several stages most recently Jul 2017. 6) DM Plan: -follow-up blood cultures -obtain C-reactive protein (CRP) -needs surgical eval preferably with his primary surgical team in view of complex surgical history and current CT findings -continue zosyn and vancomycin I attempted to call Dr Keshia stokes VM I will be off tomorrow, available on the phone and will be back rounding on the weekend Annie Stanford MD Infectious Diseases Specialist [facility] M [phone] O [phone] Subjective Date of service: 09/01/17 Principal diagnosis: Fever and Partial intestinal obstrution with metstatic disease Interval history: Pt is sedated after narcotics, at beside. still fever. Microbiology: Blood cultures: 08/27 ngtd Urine cultures: Respiratory cultures: Wound cultures: Stool cultures: Other: Current Antimicrobials: Zosyn 08/27 Vancomycin 08/30 Previous Antimicrobials: Objective - Exam Narrative Exam: General appearance: Alert in NAD, conversant Eyes: anicteric sclerae, moist conjunctivae; no lid-lag; PERRLA HENT: Atraumatic; oropharynx clear Neck: Trachea midline; supple, no thyromegaly or lymphadenopathy Lungs: CTA CV: RRR Abdomen: Soft, +midline old scar with marked induration and tenderness Extremities: marked left leg edema Skin: Normal temperature, turgor and texture; no rash, ulcers or subcutaneous nodules Psych: Appropriate affect, alert and oriented to person, place and time. Neuro: alert and oriented x 3. Moving all extermities Lines: - Constitutional Vitals: Vital Signs Temp Pulse Resp BP Pulse Ox 98.4 F 72 18 172/66 98 09/01/17 07:28 09/01/17 09:32 09/01/17 08:00 09/01/17 09:32 09/01/17 10:00 Temperature -Last 24 Hours Temperature 98.4 F Temperature 101.0 F Temperature 100.6 F Temperature 102.3 F Temperature 100.8 F - Labs CBC & Chem 7: 09/01/17 04:05 09/01/17 04:05 Labs: Abnormal lab results 08/31/17 08/31/17 09/01/17 Range/Units 16:45 22:56 04:05 Hgb 8.4 L (11.8-15.2) gm/dl Hct 26.3 L (35.5-45.6) % Chloride (98-107) mmol/L Carbon Dioxide (22-30) mmol/L BUN (9-20) mg/dL Glucose (75-100) mg/dL POC Glucose 173 H 167 H (70-105) Triglycerides (2-149) mg/dL 09/01/17 09/01/17 Range/Units 04:05 07:26 Hgb (11.8-15.2) gm/dl Hct (35.5-45.6) % Chloride 109.0 H (98-107) mmol/L Carbon Dioxide 17 L (22-30) mmol/L BUN 23 H (9-20) mg/dL Glucose 187 H (75-100) mg/dL POC Glucose 256 H (70-105) Triglycerides 210 H (2-149) mg/dL
[2017-09-01] MEDS ORDERED: NACL ONE (10:54)
--- NOTE | 2017-09-01 11:27 | XRay Report ---
AP CHEST :09/01/17 08:54:00 CLINICAL: Cough. COMPARISON:08/31/17 FINDINGS: Cardiomegaly and central vascular congestion.Mild right middle lobe opacities which are slightly more pronounced than on the last exam. The lungs are otherwise clear. No pleural effusion. Left PICC line tip is in the distal SVC. No other tubes or lines. IMPRESSION: Cardiomegaly and pulmonary venous hypertension. Suspect right middle lobe pneumonia.
[2017-09-01] MEDS: VANCOMYCIN/NS 1 GM/250 ML 1 GM/250 ML BAG IV SCH (12:12)
--- NOTE | 2017-09-01 13:59 | Cat Scan Report ---
CT CHEST WITH CONTRAST: 09/01/17 CLINICAL: Cough.History of colon cancer. TECHNIQUE: PE protocol with volumetric acquisition and 1.25 mm scan reconstructions after the uneventful intravenous injection of 100 cc Omnipaque 350. Consent was obtained prior to the administration of contrast. FINDINGS: Good opacification of the pulmonary arteries and a string of nonobstructive thrombus identified in the right lower lobe artery. No other thrombus identified. Right lower lobe partial consolidation with air bronchograms and a small right pleural effusion. A 2.4 x 2.3 cm right hilar mass. Left lower lobe subsegmental atelectasis. No lung nodule or mass identified. The heart is large. Normal aorta. Normal thyroid, trachea and esophagus. The upper abdomen is unremarkable. The bones and soft tissues are normal. IMPRESSION: Positive study for pulmonary embolus with a single sizable thrombus identified in the right lower lobe artery. Right lower lobe consolidation suggests pulmonary infarct. A 2.4 cm right hilar mass is suspicious for a metastatic lymph node. Verbal report was given to nurse Sol Estrada on 09/01/17 at 13:56. SANTOS JACKSON
[2017-09-01] MEDS: HEPARIN/ 0.45% NACL-25,000 UNIT/500 ML 25,000 UNIT/500 ML BAG IV SCH (14:26)
[2017-09-01] MEDS ORDERED: TPN ADULT 2,016 ML IV SCH (20:00)
[2017-09-01 20:57] LABS: ISTAT Base Excess -5; ISTAT HCO3 18.9; ISTAT PH 7.485 (7.35-7.45); ISTAT PO2 93 (80-105); ISTAT SO2 98; ISTAT TCO2 20
[2017-09-01] MEDS ORDERED: PROVENTIL IH PRN (21:29)
[2017-09-01] MEDS: HYDROMET PO PRN (22:13)
[2017-09-02] MEDS: ZOSYN/NS 4.5GM/100ML 4.5 GM/100 ML VIAL IV SCH ×3 (00:59→17:11)
[2017-09-02] MEDS: NOVOLOG SUB-Q SCH ×5 (01:15→22:30)
[2017-09-02] MEDS: DUONEB *Not for PRN Use IH SCH ×4 (02:02→20:05)
[2017-09-02] MEDS: TYLENOL PO PRN ×3 (05:58→22:12)
[2017-09-02] MEDS: HYDROMET PO PRN ×3 (05:59→21:49)
[2017-09-02 06:45] LABS: Anion Gap 18 mmol/L; BUN/Creatinine Ratio 19; Blood Urea Nitrogen 23 mg/dL (9-20); Calcium 8.8 mg/dL (8.4-10.2); Carbon Dioxide 19 mmol/L (22-30); Chloride 110.3 mmol/L (98-107); Glucose 172 mg/dL (75-100); Potassium 3.7 mmol/L (3.6-5.0); Sodium 144 mmol/L (137-145)
[2017-09-02] MEDS: GLUCOPHAGE PO SCH ×2 (08:34→17:10)
--- NOTE | 2017-09-02 09:53 | Consultation ---
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 Patient continues to complain of shortness of breath. Called by [facility] last night for transfer to ICU, but patient does not meet current criteria for ICU management. Reviewed CTA and there is clot in the right lower lobe with possible pulmonary infarct distal, but also reveals a possible hilar mass/enlarged lymphnode. Per at bed side, and this is confirmed in the chart, had a PET in Jun (this year) which did not show any lung lesions or uptake. Patient is currently stable on nasal cannula. He was on lovenox but was switch to heparin therapy last night. He also has global anasarca. Past History Past Medical History: diabetes, hypertension, other (colon cancer). denies: No medical history Past Surgical History: bowel surgery Social history: smoking, alcohol abuse, prescription drug abuse Family history: no significant family history Medications and Allergies Allergies Allergy/AdvReac Type Severity Reaction Status Date / Time No Known Allergies Allergy Verified 01/01/15 13:25 Home Medications Medication Instructions Recorded Confirmed Last Taken Type Amlodipine Besylate/Benazepril 1 tab PO DAILY 01/01/15 08/27/17 08/26/17 History [amLODIPine-Benazepril 10/20 mg] Atenolol [Atenolol] 100 mg PO BID 01/01/15 08/27/17 08/26/17 History Insulin Glargine,Hum.rec.anlog 20 units SUB-Q HS 01/01/15 08/27/17 08/26/17 History [Lantus Solostar] Omeprazole [Omeprazole] 20 mg PO DAILY 01/01/15 08/27/17 08/26/17 History glyBURIDE/METFORMIN HCL 10 tab PO DAILY 01/01/15 08/27/17 08/26/17 History [Glyburide-Metformin 5-500 mg] Doxazosin [Cardura] 2 mg PO BID 08/27/17 08/27/17 08/26/17 History Insulin Glargine [Lantus] 20 unit SUB-Q QHS 08/27/17 08/27/17 08/26/17 History Simethicone [Gas Relief] 80 mg PO ACHS 08/27/17 08/27/17 08/26/17 History Warfarin [Coumadin] 7.5 mg PO QDAY 08/27/17 08/27/17 08/25/17 History metFORMIN [Glucophage] 500 mg PO BID 08/27/17 08/27/17 08/26/17 History oxyCODONE [Roxicodone] 5 mg PO Q4HR PRN 08/27/17 08/27/17 08/26/17 History Active Meds: Active Medications Acetaminophen (Tylenol) 650 mg PO Q6H PRN PRN Reason: Pain, Mild (1-3) Last Admin: 09/02/17 05:58 Dose: 650 mg Albuterol (Proventil) 2.5 mg IH Q4HRT PRN PRN Reason: Shortness Of Breath Albuterol/Ipratropium (Duoneb *Not For Prn Use*) 1 ampul IH Q6HRT [facility] Last Admin: 09/02/17 07:40 Dose: 1 ampul Amlodipine Besylate (Norvasc) 5 mg PO QDAY [facility] Last Admin: 09/01/17 09:35 Dose: 5 mg Atenolol (Tenormin) 100 mg PO BID [facility] Last Admin: 09/01/17 22:20 Dose: 100 mg Cyproheptadine HCl (Periactin) 4 mg PO BID [facility] Last Admin: 09/01/17 22:20 Dose: 4 mg Dextrose (D50w (25gm) Syringe) 50 ml IV PRN PRN PRN Reason: Hypoglycemia Doxazosin Mesylate (Cardura) 2 mg PO BID [facility] Last Admin: 09/01/17 22:20 Dose: 2 mg Hydrocodone Bit/Homatropine Methylb (Hydromet) 2.5 ml PO Q8H PRN PRN Reason: Cough Last Admin: 09/02/17 05:59 Dose: 2.5 ml Piperacillin Sod/Tazobactam Sod (Zosyn/Ns 4.5gm/100ml) 4.5 gm in 100 mls @ 200 mls/hr IV Q8H [facility] Last Admin: 09/02/17 08:35 Dose: 200 mls/hr Heparin Sodium/Sodium Chloride (Heparin/ 0.45% Nacl-25,000 Unit/500 Ml) 25,000 unit in 500 mls @ 26 mls/hr IV TITR [facility]; 1,300 UNITS/HR PRN Reason: Protocol Last Titration: 09/02/17 03:08 Dose: 1,450 units/hr, 29 mls/hr Amino Acids/Electrolytes/Dextrose (Tpn Adult) 2,016 mls @ 84 mls/hr IV DAILY@ 2000 [facility] PRN Reason: Protocol Stop: 09/02/17 19:59 Last Admin: 09/01/17 20:44 Dose: 84 mls/hr Vancomycin HCl 500 mg/ Sodium (Chloride) 100 mls @ 66.667 mls/hr IV Q12H [facility] Insulin Aspart (Novolog) 0 units SUB-Q ACHS [facility] PRN Reason: Protocol Last Admin: 09/02/17 01:15 Dose: 2 units Insulin Detemir (Levemir) 20 units SUB-Q QHS [facility] Last Admin: 08/30/17 22:35 Dose: 20 units Lisinopril (Zestril) 20 mg PO QDAY [facility] Last Admin: 09/01/17 09:35 Dose: 20 mg Metformin HCl (Glucophage) 500 mg PO BIDDIAB [facility] Last Admin: 09/02/17 08:34 Dose: 500 mg Oxycodone HCl (Roxicodone) 5 mg PO Q4HR PRN PRN Reason: Pain Last Admin: 09/01/17 18:56 Dose: 5 mg Review of Systems All systems: negative Physical Examination Vital signs: Vital Signs Pulse Ox 90 08/27/17 02:20 General appearance: no acute distress, other (very drowsy, lethargic, but easily arousable. Not coughing consistently) Eyes: non-icteric ENT: oropharynx moist Neck: supple Effort: normal Ascultation: Bilateral: diminished breath sounds Percussion: Bilateral: not dull Cardiovascular: regular rate and rhythm Extremities: anasarca Results - Laboratory Findings CBC and BMP: 09/01/17 04:05 09/02/17 05:15 ABG POC ABG pH 7.485 (7.35-7.45) H 09/01/17 20:46 POC ABG pCO2 25.0 (35-45) L 09/01/17 20:46 POC ABG pO2 93 (80-105) 09/01/17 20:46 POC ABG HCO3 18.9 09/01/17 20:46 POC ABG Total CO2 20 09/01/17 20:46 POC ABG O2 Sat 98 09/01/17 20:46 PT/INR, D-dimer PT 21.8 Sec. (12.2-14.9) H 08/28/17 20:01 INR 1.80 (0.87-1.13) H 08/28/17 20:01 Abnormal lab findings: Abnormal Labs 08/27/17 08/27/17 08/27/17 03:02 03:02 03:02 WBC 14.6 H RBC 3.46 L Hgb 8.4 L Hct 26.5 L MCV 77 L MCH 24 L RDW 25.8 H Wirt % (Auto) Wirt # Monocytes % (Manual) 8.0 H Nucleated RBC % 3.0 H Monocytes # (Manual) 1.2 H PT INR APTT Heparin Anti-Xa Level POC ABG pH POC ABG pCO2 Sodium 136 L Potassium Chloride 93.3 L Carbon Dioxide BUN 21 H Glucose 104 H POC Glucose Calcium Magnesium ALT 62 H Alkaline Phosphatase 133 H C-Reactive Protein Total Protein 8.5 H Albumin 3.2 L Triglycerides Urine pH Vancomycin Trough Salicylates < 0.3 L Crossmatch 08/27/17 08/27/17 08/27/17 05:00 07:43 11:20 WBC RBC Hgb Hct MCV MCH RDW Wirt % (Auto) Wirt # Monocytes % (Manual) Nucleated RBC % Monocytes # (Manual) PT INR APTT Heparin Anti-Xa Level POC ABG pH POC ABG pCO2 Sodium Potassium Chloride Carbon Dioxide BUN Glucose POC Glucose 116 H 110 H Calcium Magnesium ALT Alkaline Phosphatase C-Reactive Protein Total Protein Albumin Triglycerides Urine pH 9.0 H Vancomycin Trough Salicylates Crossmatch 08/27/17 08/27/17 08/28/17 16:36 22:00 04:41 WBC RBC Hgb Hct MCV MCH RDW Wirt % (Auto) Wirt # Monocytes % (Manual) Nucleated RBC % Monocytes # (Manual) PT INR APTT Heparin Anti-Xa Level POC ABG pH POC ABG pCO2 Sodium Potassium Chloride Carbon Dioxide BUN Glucose 139 H POC Glucose 108 H 130 H Calcium 8.2 L Magnesium ALT Alkaline Phosphatase C-Reactive Protein Total Protein Albumin Triglycerides Urine pH Vancomycin Trough Salicylates Crossmatch 08/28/17 08/28/17 08/28/17 04:41 06:46 07:16 WBC RBC Hgb Hct MCV MCH RDW Wirt % (Auto) Wirt # Monocytes % (Manual) Nucleated RBC % Monocytes # (Manual) PT 25.2 H INR 2.17 H APTT Heparin Anti-Xa Level POC ABG pH POC ABG pCO2 Sodium Potassium Chloride Carbon Dioxide BUN Glucose POC Glucose 176 H 175 H Calcium Magnesium ALT Alkaline Phosphatase C-Reactive Protein Total Protein Albumin Triglycerides Urine pH Vancomycin Trough Salicylates Crossmatch 08/28/17 08/28/17 08/28/17 11:41 16:47 20:01 WBC RBC Hgb Hct MCV MCH RDW Wirt % (Auto) Wirt # Monocytes % (Manual) Nucleated RBC % Monocytes # (Manual) PT 21.8 H INR 1.80 H APTT 56.5 H Heparin Anti-Xa Level POC ABG pH POC ABG pCO2 Sodium Potassium Chloride Carbon Dioxide BUN Glucose POC Glucose 176 H 206 H Calcium Magnesium ALT Alkaline Phosphatase C-Reactive Protein Total Protein Albumin Triglycerides Urine pH Vancomycin Trough Salicylates Crossmatch 08/28/17 08/29/17 08/29/17 20:43 00:07 02:30 WBC RBC Hgb 6.4 L Hct 20.6 L MCV MCH RDW Wirt % (Auto) Wirt # Monocytes % (Manual) Nucleated RBC % Monocytes # (Manual) PT INR APTT Heparin Anti-Xa Level POC ABG pH POC ABG pCO2 Sodium Potassium Chloride Carbon Dioxide BUN Glucose POC Glucose 259 H Calcium Magnesium ALT Alkaline Phosphatase C-Reactive Protein Total Protein Albumin Triglycerides Urine pH Vancomycin Trough Salicylates Crossmatch See Detail 08/29/17 08/29/17 08/29/17 02:56 07:25 11:40 WBC RBC Hgb Hct MCV MCH RDW Wirt % (Auto) Wirt # Monocytes % (Manual) Nucleated RBC % Monocytes # (Manual) PT INR APTT Heparin Anti-Xa Level POC ABG pH POC ABG pCO2 Sodium Potassium 3.5 L Chloride Carbon Dioxide 21 L BUN 21 H Glucose 214 H POC Glucose 220 H 174 H Calcium 8.0 L Magnesium 1.60 L ALT Alkaline Phosphatase C-Reactive Protein Total Protein Albumin Triglycerides Urine pH Vancomycin Trough Salicylates Crossmatch 08/29/17 08/29/17 08/29/17 16:10 16:40 17:48 WBC RBC Hgb 8.5 L Hct 26.7 L D MCV MCH RDW Wirt % (Auto) Wirt # Monocytes % (Manual) Nucleated RBC % Monocytes # (Manual) PT INR APTT Heparin Anti-Xa Level POC ABG pH POC ABG pCO2 Sodium Potassium Chloride Carbon Dioxide BUN Glucose POC Glucose 178 H Calcium Magnesium ALT Alkaline Phosphatase C-Reactive Protein Total Protein 3.9 L D Albumin 1.5 L Triglycerides Urine pH Vancomycin Trough Salicylates Crossmatch 08/29/17 08/29/17 08/30/17 18:32 22:19 04:25 WBC RBC Hgb 7.9 L Hct 25.2 L MCV MCH RDW Wirt % (Auto) Wirt # Monocytes % (Manual) Nucleated RBC % Monocytes # (Manual) PT INR APTT Heparin Anti-Xa Level POC ABG pH POC ABG pCO2 Sodium Potassium Chloride Carbon Dioxide BUN Glucose POC Glucose 247 H Calcium Magnesium ALT Alkaline Phosphatase C-Reactive Protein Total Protein Albumin Triglycerides Urine pH Vancomycin Trough 25.5 H Salicylates Crossmatch 08/30/17 08/30/17 08/30/17 04:25 07:53 11:53 WBC RBC Hgb Hct MCV MCH RDW Wirt % (Auto) Wirt # Monocytes % (Manual) Nucleated RBC % Monocytes # (Manual) PT INR APTT Heparin Anti-Xa Level POC ABG pH POC ABG pCO2 Sodium 136 L Potassium 3.2 L Chloride Carbon Dioxide 18 L BUN 29 H Glucose 203 H POC Glucose 193 H 246 H Calcium Magnesium ALT Alkaline Phosphatase C-Reactive Protein Total Protein Albumin Triglycerides Urine pH Vancomycin Trough Salicylates Crossmatch 08/30/17 08/30/17 08/31/17 16:47 21:36 04:28 WBC RBC Hgb Hct MCV MCH RDW Wirt % (Auto) Wirt # Monocytes % (Manual) Nucleated RBC % Monocytes # (Manual) PT INR APTT Heparin Anti-Xa Level POC ABG pH POC ABG pCO2 Sodium Potassium 3.5 L Chloride 111.0 H Carbon Dioxide 19 L BUN 25 H Glucose 53 L POC Glucose 159 H 110 H Calcium Magnesium ALT Alkaline Phosphatase C-Reactive Protein Total Protein 6.0 L D Albumin 2.2 L Triglycerides Urine pH Vancomycin Trough Salicylates Crossmatch 08/31/17 08/31/17 08/31/17 04:28 07:31 07:34 WBC RBC 2.99 L Hgb 7.8 L Hct 23.8 L MCV 80 L MCH 26 L RDW 22.7 H Wirt % (Auto) 13.0 H Wirt # 1.3 H Monocytes % (Manual) Nucleated RBC % Monocytes # (Manual) PT INR APTT Heparin Anti-Xa Level POC ABG pH POC ABG pCO2 Sodium Potassium Chloride Carbon Dioxide BUN Glucose POC Glucose < 40 L 42 L Calcium Magnesium ALT Alkaline Phosphatase C-Reactive Protein Total Protein Albumin Triglycerides Urine pH Vancomycin Trough Salicylates Crossmatch 08/31/17 08/31/17 08/31/17 09:10 16:45 22:56 WBC RBC Hgb Hct MCV MCH RDW Wirt % (Auto) Wirt # Monocytes % (Manual) Nucleated RBC % Monocytes # (Manual) PT INR APTT Heparin Anti-Xa Level POC ABG pH POC ABG pCO2 Sodium Potassium Chloride Carbon Dioxide BUN Glucose POC Glucose 64 L 173 H 167 H Calcium Magnesium ALT Alkaline Phosphatase C-Reactive Protein Total Protein Albumin Triglycerides Urine pH Vancomycin Trough Salicylates Crossmatch 09/01/17 09/01/17 09/01/17 04:05 04:05 07:26 WBC RBC Hgb 8.4 L Hct 26.3 L MCV MCH RDW Wirt % (Auto) Wirt # Monocytes % (Manual) Nucleated RBC % Monocytes # (Manual) PT INR APTT Heparin Anti-Xa Level POC ABG pH POC ABG pCO2 Sodium Potassium Chloride 109.0 H Carbon Dioxide 17 L BUN 23 H Glucose 187 H POC Glucose 256 H Calcium Magnesium ALT Alkaline Phosphatase C-Reactive Protein Total Protein Albumin Triglycerides 210 H Urine pH Vancomycin Trough Salicylates Crossmatch 09/01/17 09/01/17 09/01/17 10:43 10:43 11:53 WBC RBC Hgb Hct MCV MCH RDW Wirt % (Auto) Wirt # Monocytes % (Manual) Nucleated RBC % Monocytes # (Manual) PT INR APTT Heparin Anti-Xa Level POC ABG pH POC ABG pCO2 Sodium Potassium Chloride Carbon Dioxide BUN Glucose POC Glucose 251 H Calcium Magnesium ALT Alkaline Phosphatase C-Reactive Protein 28.80 H Total Protein Albumin Triglycerides Urine pH Vancomycin Trough 27.7 H Salicylates Crossmatch 09/01/17 09/01/17 09/01/17 17:05 20:46 Unknown WBC RBC Hgb Hct MCV MCH RDW Wirt % (Auto) Wirt # Monocytes % (Manual) Nucleated RBC % Monocytes # (Manual) PT INR APTT Heparin Anti-Xa Level 0.11 L POC ABG pH 7.485 H POC ABG pCO2 25.0 L Sodium Potassium Chloride Carbon Dioxide BUN Glucose POC Glucose 180 H Calcium Magnesium ALT Alkaline Phosphatase C-Reactive Protein Total Protein Albumin Triglycerides Urine pH Vancomycin Trough Salicylates Crossmatch 09/02/17 09/02/17 09/02/17 01:02 05:15 05:15 WBC RBC Hgb Hct MCV MCH RDW Wirt % (Auto) Wirt # Monocytes % (Manual) Nucleated RBC % Monocytes # (Manual) PT INR APTT Heparin Anti-Xa Level 0.13 L POC ABG pH POC ABG pCO2 Sodium Potassium Chloride 110.3 H Carbon Dioxide 19 L BUN 23 H Glucose 172 H POC Glucose 222 H Calcium Magnesium ALT Alkaline Phosphatase C-Reactive Protein Total Protein Albumin Triglycerides Urine pH Vancomycin Trough Salicylates Crossmatch 09/02/17 07:46 WBC RBC Hgb Hct MCV MCH RDW Wirt % (Auto) Wirt # Monocytes % (Manual) Nucleated RBC % Monocytes # (Manual) PT INR APTT Heparin Anti-Xa Level POC ABG pH POC ABG pCO2 Sodium Potassium Chloride Carbon Dioxide BUN Glucose POC Glucose 217 H Calcium Magnesium ALT Alkaline Phosphatase C-Reactive Protein Total Protein Albumin Triglycerides Urine pH Vancomycin Trough Salicylates Crossmatch - Diagnostic Findings Chest x-ray: image reviewed CT scan - chest: image reviewed 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 1. Suggest Echo 2. Ok with current heparin drip 3. Suggest Heme/Onc evaluate and review CT. Not sure if patient needs biopsy vs repeat PET scan. Most likely this is a metastatic lesion to the lung and less likely a new primary lung malignancy but will defer to them. 4. Suggest vascular consult as well to evaluate if patient is a candidate for EKOS. 5. Continue supplemental O2 6. Change frequency on Hydromet to q6.
[2017-09-02] MEDS: TENORMIN PO SCH ×2 (10:36→22:11)
[2017-09-02] MEDS: ZESTRIL PO SCH (10:37)
[2017-09-02] MEDS: NORVASC PO SCH (10:37)
[2017-09-02] MEDS: CARDURA PO SCH ×2 (10:37→21:50)
[2017-09-02] MEDS: PERIACTIN PO SCH ×2 (10:40→21:53)
--- NOTE | 2017-09-02 11:27 | Progress Note ---
Assessment and Plan - Fever likely from anterior abdominal wall abscess vs fistula: Temp 110.3 - 101 F. Blood cx yielded no growth so far. Continue iv antibx per ID. IR consult for possible drainage. - History of colon cancer: s/p gut resection with recent abdominal surgery, 2016, that showed no evidence of met rather an intaabdominal mass for which a diversion was made to relieve intestinal obstruction - Abdominal mass: Malignant vs adhesion. There was no evidence of met per review of recent CT abdomen and previous PET scam 06/2017. However CT chest showed right lung lesion not clear whether it is a metastatic lesion or old pulm. infarction - DM: Consistent carbohydrate meal and SSI - DVT with Acute PE. left common femoral vein and right pulm art: Cont. Heparin drip. Will obtain vascular surgical consult for possible EKOS or IVC filter. - Cough: Commence Hyromet and obtain CXR - GI prophyalxis with Pepcid Subjective Date of service: 09/02/17 Principal diagnosis: fever from Pneumonia, ant abdomninal; vs abcess, acute DVT and PE Interval history: c/o cough and shortness of breath Objective - Constitutional Vitals: Vital Signs - 12hr 09/02/17 09/02/17 09/02/17 02:00 02:09 05:35 Temperature 100.3 F H Pulse Rate 85 Pulse Rate [ 83 88 Anterior Bilateral Throughout] Pulse Rate [ Left Radial] Pulse Rate [ Right Radial] Respiratory 20 Rate Respiratory 18 22 Rate [Anterior Bilateral Throughout] Blood Pressure 157/73 O2 Sat by Pulse 98 Oximetry 09/02/17 09/02/17 09/02/17 07:32 10:00 10:36 Temperature 100.3 F H Pulse Rate 77 77 Pulse Rate [ Anterior Bilateral Throughout] Pulse Rate [ 78 Left Radial] Pulse Rate [ 77 Right Radial] Respiratory 20 24 Rate Respiratory Rate [Anterior Bilateral Throughout] Blood Pressure 159/71 159/71 O2 Sat by Pulse 97 Oximetry 09/02/17 10:37 Temperature Pulse Rate 77 Pulse Rate [ Anterior Bilateral Throughout] Pulse Rate [ Left Radial] Pulse Rate [ Right Radial] Respiratory Rate Respiratory Rate [Anterior Bilateral Throughout] Blood Pressure 159/71 O2 Sat by Pulse Oximetry General appearance: Present: no acute distress, well-nourished - EENT Eyes: PERRL, EOM intact Ears: bilateral: normal - Neck Neck: supple, normal ROM - Respiratory Respiratory effort: normal Respiratory: bilateral: diminished - Breasts Breasts: normal - Cardiovascular Rhythm: regular Heart Sounds: Present: S1 & S2. Absent: gallop, rub Extremities: pulses intact, No edema, normal color, Full ROM - Gastrointestinal General gastrointestinal: Present: soft, non-tender, non-distended, normal bowel sounds - Genitourinary Male genitourinary: normal - Integumentary Integumentary: clear, warm, dry - Musculoskeletal Musculoskeletal: generalized weakness - Neurologic Neurologic: moves all extremities - Psychiatric Psychiatric: other (confused) - Labs CBC & Chem 7: 09/01/17 04:05 09/02/17 05:15 Labs: Abnormal lab results 09/01/17 09/01/17 09/01/17 Range/Units 10:43 10:43 11:53 Heparin Anti-Xa Level (0.3-0.7) U.I./ml POC ABG pH (7.35-7.45) POC ABG pCO2 (35-45) Chloride (98-107) mmol/L Carbon Dioxide (22-30) mmol/L BUN (9-20) mg/dL Glucose (75-100) mg/dL POC Glucose 251 H (70-105) C-Reactive Protein 28.80 H (0.00-1.30) mg/dL Vancomycin Trough 27.7 H (5.0-20.0) ug/mL 09/01/17 09/01/17 09/01/17 Range/Units 17:05 20:46 Unknown Heparin Anti-Xa Level 0.11 L (0.3-0.7) U.I./ml POC ABG pH 7.485 H (7.35-7.45) POC ABG pCO2 25.0 L (35-45) Chloride (98-107) mmol/L Carbon Dioxide (22-30) mmol/L BUN (9-20) mg/dL Glucose (75-100) mg/dL POC Glucose 180 H (70-105) C-Reactive Protein (0.00-1.30) mg/dL Vancomycin Trough (5.0-20.0) ug/mL 09/02/17 09/02/17 09/02/17 Range/Units 01:02 05:15 05:15 Heparin Anti-Xa Level 0.13 L (0.3-0.7) U.I./ml POC ABG pH (7.35-7.45) POC ABG pCO2 (35-45) Chloride 110.3 H (98-107) mmol/L Carbon Dioxide 19 L (22-30) mmol/L BUN 23 H (9-20) mg/dL Glucose 172 H (75-100) mg/dL POC Glucose 222 H (70-105) C-Reactive Protein (0.00-1.30) mg/dL Vancomycin Trough (5.0-20.0) ug/mL 09/02/17 09/02/17 Range/Units 07:46 10:03 Heparin Anti-Xa Level < 0.10 L (0.3-0.7) U.I./ml POC ABG pH (7.35-7.45) POC ABG pCO2 (35-45) Chloride (98-107) mmol/L Carbon Dioxide (22-30) mmol/L BUN (9-20) mg/dL Glucose (75-100) mg/dL POC Glucose 217 H (70-105) C-Reactive Protein (0.00-1.30) mg/dL Vancomycin Trough (5.0-20.0) ug/mL
--- NOTE | 2017-09-02 12:19 | Consultation ---
History of Present Illness - Reason for Consult Consult date: 09/02/17 - History of Present Illness 66 year old male with extensive medical and surgical history related to colon CA. He experienced SOB recently and a CTA demonstrated Rt Main PA embolism. Additionally, he has LLE extensive DVT based on CT and US. He currently is hemodynamically stable and is resting comfortably. He says is midly SOB. He did have a prior PE several years ago after his first surgery related to colon CA. He was put on oral anticoagulation for that. He's currently on a heparin gtt. Past History Past Medical History: diabetes, hypertension, other (colon cancer). denies: No medical history Past Surgical History: bowel surgery Social history: smoking, alcohol abuse, prescription drug abuse Family history: no significant family history Medications and Allergies Allergies Allergy/AdvReac Type Severity Reaction Status Date / Time No Known Allergies Allergy Verified 01/01/15 13:25 Home Medications Medication Instructions Recorded Confirmed Last Taken Type Amlodipine Besylate/Benazepril 1 tab PO DAILY 01/01/15 08/27/17 08/26/17 History [amLODIPine-Benazepril 10/20 mg] Atenolol [Atenolol] 100 mg PO BID 01/01/15 08/27/17 08/26/17 History Insulin Glargine,Hum.rec.anlog 20 units SUB-Q HS 01/01/15 08/27/17 08/26/17 History [Lantus Solostar] Omeprazole [Omeprazole] 20 mg PO DAILY 01/01/15 08/27/17 08/26/17 History glyBURIDE/METFORMIN HCL 10 tab PO DAILY 01/01/15 08/27/17 08/26/17 History [Glyburide-Metformin 5-500 mg] Doxazosin [Cardura] 2 mg PO BID 08/27/17 08/27/17 08/26/17 History Insulin Glargine [Lantus] 20 unit SUB-Q QHS 08/27/17 08/27/17 08/26/17 History Simethicone [Gas Relief] 80 mg PO ACHS 08/27/17 08/27/17 08/26/17 History Warfarin [Coumadin] 7.5 mg PO QDAY 08/27/17 08/27/17 08/25/17 History metFORMIN [Glucophage] 500 mg PO BID 08/27/17 08/27/17 08/26/17 History oxyCODONE [Roxicodone] 5 mg PO Q4HR PRN 08/27/17 08/27/17 08/26/17 History Active Meds: Active Medications Acetaminophen (Tylenol) 650 mg PO Q6H PRN PRN Reason: Pain, Mild (1-3) Last Admin: 09/02/17 05:58 Dose: 650 mg Albuterol (Proventil) 2.5 mg IH Q4HRT PRN PRN Reason: Shortness Of Breath Albuterol/Ipratropium (Duoneb *Not For Prn Use*) 1 ampul IH Q6HRT [facility] Last Admin: 09/02/17 07:40 Dose: 1 ampul Amlodipine Besylate (Norvasc) 5 mg PO QDAY [facility] Last Admin: 09/02/17 10:37 Dose: 5 mg Atenolol (Tenormin) 100 mg PO BID [facility] Last Admin: 09/02/17 10:36 Dose: 100 mg Cyproheptadine HCl (Periactin) 4 mg PO BID [facility] Last Admin: 09/02/17 10:40 Dose: 4 mg Dextrose (D50w (25gm) Syringe) 50 ml IV PRN PRN PRN Reason: Hypoglycemia Doxazosin Mesylate (Cardura) 2 mg PO BID [facility] Last Admin: 09/02/17 10:37 Dose: 2 mg Hydrocodone Bit/Homatropine Methylb (Hydromet) 2.5 ml PO Q6H PRN PRN Reason: Cough Last Admin: 09/02/17 10:52 Dose: 2.5 ml Piperacillin Sod/Tazobactam Sod (Zosyn/Ns 4.5gm/100ml) 4.5 gm in 100 mls @ 200 mls/hr IV Q8H [facility] Last Admin: 09/02/17 08:35 Dose: 200 mls/hr Heparin Sodium/Sodium Chloride (Heparin/ 0.45% Nacl-25,000 Unit/500 Ml) 25,000 unit in 500 mls @ 26 mls/hr IV TITR ALEC; 1,300 UNITS/HR PRN Reason: Protocol Last Titration: 09/02/17 11:18 Dose: Infused Amino Acids/Electrolytes/Dextrose (Tpn Adult) 2,016 mls @ 84 mls/hr IV DAILY@ 2000 [facility] PRN Reason: Protocol Stop: 09/02/17 19:59 Last Admin: 09/01/17 20:44 Dose: 84 mls/hr Vancomycin HCl 500 mg/ Sodium (Chloride) 100 mls @ 66.667 mls/hr IV Q12H [facility] Insulin Aspart (Novolog) 0 units SUB-Q ACHS [facility] PRN Reason: Protocol Last Admin: 09/02/17 07:30 Dose: 2 units Insulin Detemir (Levemir) 20 units SUB-Q QHS [facility] Last Admin: 08/30/17 22:35 Dose: 20 units Lisinopril (Zestril) 20 mg PO QDAY [facility] Last Admin: 09/02/17 10:37 Dose: 20 mg Metformin HCl (Glucophage) 500 mg PO BIDDIAB [facility] Last Admin: 09/02/17 08:34 Dose: 500 mg Oxycodone HCl (Roxicodone) 5 mg PO Q4HR PRN PRN Reason: Pain Last Admin: 09/01/17 18:56 Dose: 5 mg Exam - Constitutional Vitals: Temp Pulse Resp BP Pulse Ox 100.3 F H 77 24 159/71 97 09/02/17 07:32 09/02/17 10:37 09/02/17 10:00 09/02/17 10:37 09/02/17 07:32 General appearance: Present: no acute distress - EENT Eyes: Present: PERRL ENT: hearing intact - Neck Neck: Present: supple - Respiratory Respiratory effort: other (mildly tachypnic, but doesn't appear labored) - Peripheral Assessment Left Lower Extremity Edema Type: Pitting Edema Degree: 2+ Results - Labs CBC & Chem 7: 09/01/17 04:05 09/02/17 05:15 Labs: Abnormal lab results 09/01/17 09/01/17 09/01/17 Range/Units 17:05 20:46 Unknown Heparin Anti-Xa Level 0.11 L (0.3-0.7) U.I./ml POC ABG pH 7.485 H (7.35-7.45) POC ABG pCO2 25.0 L (35-45) Chloride (98-107) mmol/L Carbon Dioxide (22-30) mmol/L BUN (9-20) mg/dL Glucose (75-100) mg/dL POC Glucose 180 H (70-105) 09/02/17 09/02/17 09/02/17 Range/Units 01:02 05:15 05:15 Heparin Anti-Xa Level 0.13 L (0.3-0.7) U.I./ml POC ABG pH (7.35-7.45) POC ABG pCO2 (35-45) Chloride 110.3 H (98-107) mmol/L Carbon Dioxide 19 L (22-30) mmol/L BUN 23 H (9-20) mg/dL Glucose 172 H (75-100) mg/dL POC Glucose 222 H (70-105) 09/02/17 09/02/17 Range/Units 07:46 10:03 Heparin Anti-Xa Level < 0.10 L (0.3-0.7) U.I./ml POC ABG pH (7.35-7.45) POC ABG pCO2 (35-45) Chloride (98-107) mmol/L Carbon Dioxide (22-30) mmol/L BUN (9-20) mg/dL Glucose (75-100) mg/dL POC Glucose 217 H (70-105) - Imaging and Cardiology CT scan - abdomen: report reviewed, image reviewed CT scan - chest: report reviewed, image reviewed Assessment and Plan Currently, Mr. Trent is resting comfortably - he eventually fell asleep while I was discussing medical history with his . He is not tachycardic (HR is 77 ). CTA shows a right main PA embolus. Based on CT, there's no evidence of significant heart strain. Plan: - f/u echocardiography for right heart strain - can evaluate BNP - per CT, this is a submassive PE. In the setting of hemodynamic stability, Ekos treatment of a unilateral PE is unlikely to be on any benefit. - He may need to be on Eliquis or Xarelto due to his history of PE and current LLE DVT. Heme/onc is following - Should heme/onc determine that oral anticoagulation alone is insufficient, I can place a filter.
[2017-09-02] MEDS: VANCOMYCIN VIAL 500 MG in NACL 0.9% 100 ML IV SCH (13:31)
[2017-09-02] MEDS: ROXICODONE PO PRN ×2 (17:10→21:51)
[2017-09-02] MEDS ORDERED: TPN ADULT 2,016 ML IV SCH (20:00)
[2017-09-02] MEDS ORDERED: INTRALIPID 20% 250 ML IV SCH (20:00)
[2017-09-02] MEDS: HEPARIN/ 0.45% NACL-25,000 UNIT/500 ML 25,000 UNIT/500 ML BAG IV SCH (21:58)
[2017-09-03] MEDS: VANCOMYCIN VIAL 500 MG in NACL 0.9% 100 ML IV SCH ×2 (00:53→13:36)
[2017-09-03] MEDS: ZOSYN/NS 4.5GM/100ML 4.5 GM/100 ML VIAL IV SCH ×3 (00:54→18:37)
[2017-09-03] MEDS: DUONEB *Not for PRN Use IH SCH ×4 (02:21→21:40)
[2017-09-03] MEDS: ROXICODONE PO PRN ×2 (04:44→15:56)
[2017-09-03] MEDS: TYLENOL PO PRN (04:45)
[2017-09-03] MEDS: HYDROMET PO PRN (04:46)
[2017-09-03 05:16] LABS: Alanine Aminotransferase 34 units/L (7-56); Albumin 2.4 g/dL (3.9-5); Albumin/Globulin Ratio 0.5 %; Alkaline Phosphatase 140 units/L (35-129); Anion Gap 16 mmol/L; BUN/Creatinine Ratio 23; Blood Urea Nitrogen 27 mg/dL (9-20); Calcium 9.3 mg/dL (8.4-10.2); Carbon Dioxide 20 mmol/L (22-30); Chloride 109.7 mmol/L (98-107); Glucose 193 mg/dL (75-100); Potassium 4.1 mmol/L (3.6-5.0); Sodium 142 mmol/L (137-145); Total Protein 7.7 g/dL (6.3-8.2)
[2017-09-03 05:21] LABS: Basophils % (Auto) 0.7 % (0.0-1.8); Hematocrit 22.5 % (35.5-45.6); Hemoglobin 7.1 gm/dl (11.8-15.2); Mean Corpuscular HGB Conc 31 % (32-34); Mean Corpuscular Volume 80 fl (84-94); Platelet Count 315 K/mm3 (140-440)
[2017-09-03 05:38] LABS: Mean Corpuscular Hemoglobin 25 pg (28-32); Red Cell Distribution Width 22.7 % (13.2-15.2)
[2017-09-03] MEDS: CARDURA PO SCH ×3 (08:58→21:06)
[2017-09-03] MEDS: TENORMIN PO SCH ×2 (08:59→21:05)
[2017-09-03] MEDS: PERIACTIN PO SCH ×2 (09:00→21:06)
[2017-09-03] MEDS: NORVASC PO SCH (09:01)
[2017-09-03] MEDS: ZESTRIL PO SCH (09:01)
[2017-09-03] MEDS: GLUCOPHAGE PO SCH ×2 (09:01→18:37)
[2017-09-03] MEDS: NOVOLOG SUB-Q SCH ×3 (09:02→16:30)
[2017-09-03] MEDS ORDERED: HYDROMET PO PRN (10:31)
--- NOTE | 2017-09-03 10:43 | Event Note ---
Date: 09/03/17 Reviewed echo report - there is no evidence of right heart dysfunction. Given his overall stability, normal heart rate, and lack of right heart strain, no catheter based PE thrombolysis is indicated at this time.
--- NOTE | 2017-09-03 11:43 | Progress Note ---
Assessment and Plan Assessment: 1) Sepsis: fever trending down. Etiology most likely - multifactorial PE +/- abdominal wall infection ? abscess ? fistula ? +/- presumed pneumonia 2) Abdominal wall infection ? abscess ? fistula . CRP=28 3) Presumed bilateral pneumonia 4) DVTs 5) Colon cancer s/p colon resection, small bowel bypass, fistula repair, colostomy reversal in several stages most recently Jul 2017. 6) DM 7) PE-right main PA embolus on heparin Plan: -agree with transfer to [place] -needs surgical eval preferably with his primary surgical team in view of complex surgical history and current CT findings ? IR drainage ? OR -continue zosyn and vancomycin Annie Stanford MD Infectious Diseases Specialist [facility] M [phone] O [phone] Subjective Date of service: 09/03/17 Principal diagnosis: fever from Pneumonia, ant abdomninal; vs abcess, acute DVT and PE Interval history: Pt is c/o SOB and cough/chest congestion Microbiology: Blood cultures: 08/27 neg 08/31 ngtd Urine cultures: Current Antimicrobials: Zosyn 08/27 Vancomycin 08/30 Previous Antimicrobials: Objective - Exam Narrative Exam: General appearance: Alert in NAD, conversant Eyes: anicteric sclerae, moist conjunctivae; no lid-lag; PERRLA HENT: Atraumatic; oropharynx clear Neck: Trachea midline; supple, no thyromegaly or lymphadenopathy Lungs: kiko wheezing / rhonchi CV: RRR Abdomen: Soft, +midline old scar with marked induration and tenderness Extremities: marked left leg edema Skin: Normal temperature, turgor and texture; no rash, ulcers or subcutaneous nodules Psych: Appropriate affect, alert and oriented to person, place and time. Neuro: alert and oriented x 3. Moving all extermities Lines: - Constitutional Vitals: Vital Signs Temp Pulse Resp BP Pulse Ox 98.9 F 77 20 141/72 97 09/03/17 07:59 09/03/17 08:59 09/03/17 08:35 09/03/17 08:59 09/03/17 08:30 Temperature -Last 24 Hours Temperature 98.9 F Temperature 98.1 F Temperature 99.3 F Temperature 100.6 F Temperature 100.3 F - Labs CBC & Chem 7: 09/03/17 04:50 09/03/17 04:50 Labs: Abnormal lab results 09/02/17 09/02/17 09/02/17 Range/Units 11:41 16:43 19:24 RBC (3.65-5.03) M/mm3 Hgb (11.8-15.2) gm/dl Hct (35.5-45.6) % MCV (84-94) fl MCH (28-32) pg MCHC (32-34) % RDW (13.2-15.2) % [place] % (Auto) (0.0-7.3) % Heparin Anti-Xa Level 0.19 L (0.3-0.7) U.I./ml Chloride (98-107) mmol/L Carbon Dioxide (22-30) mmol/L BUN (9-20) mg/dL Glucose (75-100) mg/dL POC Glucose 211 H 247 H (70-105) Alkaline Phosphatase (35-129) units/L Albumin (3.9-5) g/dL 09/02/17 09/03/17 09/03/17 Range/Units 22:06 04:50 04:50 RBC 2.80 L (3.65-5.03) M/mm3 Hgb 7.1 L (11.8-15.2) gm/dl Hct 22.5 L (35.5-45.6) % MCV 80 L (84-94) fl MCH 25 L (28-32) pg MCHC 31 L (32-34) % RDW 22.7 H (13.2-15.2) % [place] % (Auto) 7.6 H (0.0-7.3) % Heparin Anti-Xa Level (0.3-0.7) U.I./ml Chloride 109.7 H (98-107) mmol/L Carbon Dioxide 20 L (22-30) mmol/L BUN 27 H (9-20) mg/dL Glucose 193 H (75-100) mg/dL POC Glucose 196 H (70-105) Alkaline Phosphatase 140 H (35-129) units/L Albumin 2.4 L (3.9-5) g/dL
--- NOTE | 2017-09-03 11:51 | Progress Note ---
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 1. Recommend Heme onc contribute to anticoagulation of choice. Especially if there is malignancy involved. 2. Ok with current heparin drip 3. Suggest Heme/Onc evaluate and review CT. Not sure if patient needs biopsy vs repeat PET scan. Most likely this is a metastatic lesion to the lung and less likely a new primary lung malignancy but will defer to them. 4. Continue supplemental O2 wean as tolerated. Subjective Date of service: 09/03/17 Principal diagnosis: fever from Pneumonia, ant abdomninal; vs abcess, acute DVT and PE Interval history: Reviewed notes today. In ID note speak of transfer to [place]? Not sure why. Agree with Vascular surgery recs. Reviewed echo. Down to 1.5 liters with a sat of 97% Objective Vital Signs - 12hr 09/03/17 09/03/17 09/03/17 02:21 04:44 04:45 Temperature Pulse Rate Pulse Rate [ 88 Anterior Bilateral Throughout] Respiratory 16 16 Rate Respiratory 16 Rate [Abdomen] Respiratory 20 Rate [Anterior Bilateral Throughout] Blood Pressure O2 Sat by Pulse Oximetry 09/03/17 09/03/17 09/03/17 04:57 05:44 05:45 Temperature 98.1 F Pulse Rate 81 Pulse Rate [ Anterior Bilateral Throughout] Respiratory 18 16 20 Rate Respiratory Rate [Abdomen] Respiratory Rate [Anterior Bilateral Throughout] Blood Pressure 165/76 O2 Sat by Pulse 98 Oximetry 09/03/17 09/03/17 09/03/17 07:59 08:30 08:35 Temperature 98.9 F Pulse Rate 77 Pulse Rate [ 78 80 Anterior Bilateral Throughout] Respiratory 18 Rate Respiratory Rate [Abdomen] Respiratory 20 20 Rate [Anterior Bilateral Throughout] Blood Pressure 141/72 O2 Sat by Pulse 98 97 Oximetry 09/03/17 09/03/17 08:58 08:59 Temperature Pulse Rate 77 77 Pulse Rate [ Anterior Bilateral Throughout] Respiratory Rate Respiratory Rate [Abdomen] Respiratory Rate [Anterior Bilateral Throughout] Blood Pressure 141/72 141/72 O2 Sat by Pulse Oximetry Constitutional: no acute distress, other (very drowsy, lethargic, but easily arousable. Not coughing consistently) Eyes: non-icteric ENT: oropharynx moist Neck: supple Effort: normal Ascultation: Bilateral: diminished breath sounds Percussion: Bilateral: not dull Cardiovascular: regular rate and rhythm Extremities: anasarca CBC and BMP: 09/03/17 04:50 09/03/17 04:50 ABG, PT/INR, D-dimer: ABG POC ABG pH 7.485 (7.35-7.45) H 09/01/17 20:46 POC ABG pCO2 25.0 (35-45) L 09/01/17 20:46 POC ABG pO2 93 (80-105) 09/01/17 20:46 POC ABG HCO3 18.9 09/01/17 20:46 POC ABG Total CO2 20 09/01/17 20:46 POC ABG O2 Sat 98 09/01/17 20:46 PT/INR, D-dimer PT 21.8 Sec. (12.2-14.9) H 08/28/17 20:01 INR 1.80 (0.87-1.13) H 08/28/17 20:01 Abnormal lab findings: Abnormal Labs 08/27/17 08/27/17 08/27/17 03:02 03:02 03:02 WBC 14.6 H RBC 3.46 L Hgb 8.4 L Hct 26.5 L MCV 77 L MCH 24 L MCHC RDW 25.8 H [place] % (Auto) [place] # Monocytes % (Manual) 8.0 H Nucleated RBC % 3.0 H Monocytes # (Manual) 1.2 H PT INR APTT Heparin Anti-Xa Level POC ABG pH POC ABG pCO2 Sodium 136 L Potassium Chloride 93.3 L Carbon Dioxide BUN 21 H Glucose 104 H POC Glucose Calcium Magnesium ALT 62 H Alkaline Phosphatase 133 H C-Reactive Protein Total Protein 8.5 H Albumin 3.2 L Triglycerides Urine pH Vancomycin Trough Salicylates < 0.3 L Crossmatch 08/27/17 08/27/17 08/27/17 05:00 07:43 11:20 WBC RBC Hgb Hct MCV MCH MCHC RDW [place] % (Auto) [place] # Monocytes % (Manual) Nucleated RBC % Monocytes # (Manual) PT INR APTT Heparin Anti-Xa Level POC ABG pH POC ABG pCO2 Sodium Potassium Chloride Carbon Dioxide BUN Glucose POC Glucose 116 H 110 H Calcium Magnesium ALT Alkaline Phosphatase C-Reactive Protein Total Protein Albumin Triglycerides Urine pH 9.0 H Vancomycin Trough Salicylates Crossmatch 08/27/17 08/27/17 08/28/17 16:36 22:00 04:41 WBC RBC Hgb Hct MCV MCH MCHC RDW [place] % (Auto) [place] # Monocytes % (Manual) Nucleated RBC % Monocytes # (Manual) PT INR APTT Heparin Anti-Xa Level POC ABG pH POC ABG pCO2 Sodium Potassium Chloride Carbon Dioxide BUN Glucose 139 H POC Glucose 108 H 130 H Calcium 8.2 L Magnesium ALT Alkaline Phosphatase C-Reactive Protein Total Protein Albumin Triglycerides Urine pH Vancomycin Trough Salicylates Crossmatch 08/28/17 08/28/17 08/28/17 04:41 06:46 07:16 WBC RBC Hgb Hct MCV MCH MCHC RDW [place] % (Auto) [place] # Monocytes % (Manual) Nucleated RBC % Monocytes # (Manual) PT 25.2 H INR 2.17 H APTT Heparin Anti-Xa Level POC ABG pH POC ABG pCO2 Sodium Potassium Chloride Carbon Dioxide BUN Glucose POC Glucose 176 H 175 H Calcium Magnesium ALT Alkaline Phosphatase C-Reactive Protein Total Protein Albumin Triglycerides Urine pH Vancomycin Trough Salicylates Crossmatch 08/28/17 08/28/17 08/28/17 11:41 16:47 20:01 WBC RBC Hgb Hct MCV MCH MCHC RDW [place] % (Auto) [place] # Monocytes % (Manual) Nucleated RBC % Monocytes # (Manual) PT 21.8 H INR 1.80 H APTT 56.5 H Heparin Anti-Xa Level POC ABG pH POC ABG pCO2 Sodium Potassium Chloride Carbon Dioxide BUN Glucose POC Glucose 176 H 206 H Calcium Magnesium ALT Alkaline Phosphatase C-Reactive Protein Total Protein Albumin Triglycerides Urine pH Vancomycin Trough Salicylates Crossmatch 08/28/17 08/29/17 08/29/17 20:43 00:07 02:30 WBC RBC Hgb 6.4 L Hct 20.6 L MCV MCH MCHC RDW [place] % (Auto) [place] # Monocytes % (Manual) Nucleated RBC % Monocytes # (Manual) PT INR APTT Heparin Anti-Xa Level POC ABG pH POC ABG pCO2 Sodium Potassium Chloride Carbon Dioxide BUN Glucose POC Glucose 259 H Calcium Magnesium ALT Alkaline Phosphatase C-Reactive Protein Total Protein Albumin Triglycerides Urine pH Vancomycin Trough Salicylates Crossmatch See Detail 08/29/17 08/29/17 08/29/17 02:56 07:25 11:40 WBC RBC Hgb Hct MCV MCH MCHC RDW [place] % (Auto) [place] # Monocytes % (Manual) Nucleated RBC % Monocytes # (Manual) PT INR APTT Heparin Anti-Xa Level POC ABG pH POC ABG pCO2 Sodium Potassium 3.5 L Chloride Carbon Dioxide 21 L BUN 21 H Glucose 214 H POC Glucose 220 H 174 H Calcium 8.0 L Magnesium 1.60 L ALT Alkaline Phosphatase C-Reactive Protein Total Protein Albumin Triglycerides Urine pH Vancomycin Trough Salicylates Crossmatch 08/29/17 08/29/17 08/29/17 16:10 16:40 17:48 WBC RBC Hgb 8.5 L Hct 26.7 L D MCV MCH MCHC RDW [place] % (Auto) [place] # Monocytes % (Manual) Nucleated RBC % Monocytes # (Manual) PT INR APTT Heparin Anti-Xa Level POC ABG pH POC ABG pCO2 Sodium Potassium Chloride Carbon Dioxide BUN Glucose POC Glucose 178 H Calcium Magnesium ALT Alkaline Phosphatase C-Reactive Protein Total Protein 3.9 L D Albumin 1.5 L Triglycerides Urine pH Vancomycin Trough Salicylates Crossmatch 08/29/17 08/29/17 08/30/17 18:32 22:19 04:25 WBC RBC Hgb 7.9 L Hct 25.2 L MCV MCH MCHC RDW [place] % (Auto) [place] # Monocytes % (Manual) Nucleated RBC % Monocytes # (Manual) PT INR APTT Heparin Anti-Xa Level POC ABG pH POC ABG pCO2 Sodium Potassium Chloride Carbon Dioxide BUN Glucose POC Glucose 247 H Calcium Magnesium ALT Alkaline Phosphatase C-Reactive Protein Total Protein Albumin Triglycerides Urine pH Vancomycin Trough 25.5 H Salicylates Crossmatch 08/30/17 08/30/17 08/30/17 04:25 07:53 11:53 WBC RBC Hgb Hct MCV MCH MCHC RDW [place] % (Auto) [place] # Monocytes % (Manual) Nucleated RBC % Monocytes # (Manual) PT INR APTT Heparin Anti-Xa Level POC ABG pH POC ABG pCO2 Sodium 136 L Potassium 3.2 L Chloride Carbon Dioxide 18 L BUN 29 H Glucose 203 H POC Glucose 193 H 246 H Calcium Magnesium ALT Alkaline Phosphatase C-Reactive Protein Total Protein Albumin Triglycerides Urine pH Vancomycin Trough Salicylates Crossmatch 08/30/17 08/30/17 08/31/17 16:47 21:36 04:28 WBC RBC Hgb Hct MCV MCH MCHC RDW [place] % (Auto) [place] # Monocytes % (Manual) Nucleated RBC % Monocytes # (Manual) PT INR APTT Heparin Anti-Xa Level POC ABG pH POC ABG pCO2 Sodium Potassium 3.5 L Chloride 111.0 H Carbon Dioxide 19 L BUN 25 H Glucose 53 L POC Glucose 159 H 110 H Calcium Magnesium ALT Alkaline Phosphatase C-Reactive Protein Total Protein 6.0 L D Albumin 2.2 L Triglycerides Urine pH Vancomycin Trough Salicylates Crossmatch 08/31/17 08/31/17 08/31/17 04:28 07:31 07:34 WBC RBC 2.99 L Hgb 7.8 L Hct 23.8 L MCV 80 L MCH 26 L MCHC RDW 22.7 H [place] % (Auto) 13.0 H [place] # 1.3 H Monocytes % (Manual) Nucleated RBC % Monocytes # (Manual) PT INR APTT Heparin Anti-Xa Level POC ABG pH POC ABG pCO2 Sodium Potassium Chloride Carbon Dioxide BUN Glucose POC Glucose < 40 L 42 L Calcium Magnesium ALT Alkaline Phosphatase C-Reactive Protein Total Protein Albumin Triglycerides Urine pH Vancomycin Trough Salicylates Crossmatch 08/31/17 08/31/17 08/31/17 09:10 16:45 22:56 WBC RBC Hgb Hct MCV MCH MCHC RDW [place] % (Auto) [place] # Monocytes % (Manual) Nucleated RBC % Monocytes # (Manual) PT INR APTT Heparin Anti-Xa Level POC ABG pH POC ABG pCO2 Sodium Potassium Chloride Carbon Dioxide BUN Glucose POC Glucose 64 L 173 H 167 H Calcium Magnesium ALT Alkaline Phosphatase C-Reactive Protein Total Protein Albumin Triglycerides Urine pH Vancomycin Trough Salicylates Crossmatch 09/01/17 09/01/17 09/01/17 04:05 04:05 07:26 WBC RBC Hgb 8.4 L Hct 26.3 L MCV MCH MCHC RDW [place] % (Auto) [place] # Monocytes % (Manual) Nucleated RBC % Monocytes # (Manual) PT INR APTT Heparin Anti-Xa Level POC ABG pH POC ABG pCO2 Sodium Potassium Chloride 109.0 H Carbon Dioxide 17 L BUN 23 H Glucose 187 H POC Glucose 256 H Calcium Magnesium ALT Alkaline Phosphatase C-Reactive Protein Total Protein Albumin Triglycerides 210 H Urine pH Vancomycin Trough Salicylates Crossmatch 09/01/17 09/01/17 09/01/17 10:43 10:43 11:53 WBC RBC Hgb Hct MCV MCH MCHC RDW [place] % (Auto) [place] # Monocytes % (Manual) Nucleated RBC % Monocytes # (Manual) PT INR APTT Heparin Anti-Xa Level POC ABG pH POC ABG pCO2 Sodium Potassium Chloride Carbon Dioxide BUN Glucose POC Glucose 251 H Calcium Magnesium ALT Alkaline Phosphatase C-Reactive Protein 28.80 H Total Protein Albumin Triglycerides Urine pH Vancomycin Trough 27.7 H Salicylates Crossmatch 09/01/17 09/01/17 09/01/17 17:05 20:46 Unknown WBC RBC Hgb Hct MCV MCH MCHC RDW [place] % (Auto) [place] # Monocytes % (Manual) Nucleated RBC % Monocytes # (Manual) PT INR APTT Heparin Anti-Xa Level 0.11 L POC ABG pH 7.485 H POC ABG pCO2 25.0 L Sodium Potassium Chloride Carbon Dioxide BUN Glucose POC Glucose 180 H Calcium Magnesium ALT Alkaline Phosphatase C-Reactive Protein Total Protein Albumin Triglycerides Urine pH Vancomycin Trough Salicylates Crossmatch 09/02/17 09/02/17 09/02/17 01:02 05:15 05:15 WBC RBC Hgb Hct MCV MCH MCHC RDW [place] % (Auto) [place] # Monocytes % (Manual) Nucleated RBC % Monocytes # (Manual) PT INR APTT Heparin Anti-Xa Level 0.13 L POC ABG pH POC ABG pCO2 Sodium Potassium Chloride 110.3 H Carbon Dioxide 19 L BUN 23 H Glucose 172 H POC Glucose 222 H Calcium Magnesium ALT Alkaline Phosphatase C-Reactive Protein Total Protein Albumin Triglycerides Urine pH Vancomycin Trough Salicylates Crossmatch 09/02/17 09/02/17 09/02/17 07:46 10:03 11:41 WBC RBC Hgb Hct MCV MCH MCHC RDW [place] % (Auto) [place] # Monocytes % (Manual) Nucleated RBC % Monocytes # (Manual) PT INR APTT Heparin Anti-Xa Level < 0.10 L POC ABG pH POC ABG pCO2 Sodium Potassium Chloride Carbon Dioxide BUN Glucose POC Glucose 217 H 211 H Calcium Magnesium ALT Alkaline Phosphatase C-Reactive Protein Total Protein Albumin Triglycerides Urine pH Vancomycin Trough Salicylates Crossmatch 09/02/17 09/02/17 09/02/17 16:43 19:24 22:06 WBC RBC Hgb Hct MCV MCH MCHC RDW [place] % (Auto) [place] # Monocytes % (Manual) Nucleated RBC % Monocytes # (Manual) PT INR APTT Heparin Anti-Xa Level 0.19 L POC ABG pH POC ABG pCO2 Sodium Potassium Chloride Carbon Dioxide BUN Glucose POC Glucose 247 H 196 H Calcium Magnesium ALT Alkaline Phosphatase C-Reactive Protein Total Protein Albumin Triglycerides Urine pH Vancomycin Trough Salicylates Crossmatch 09/03/17 09/03/17 04:50 04:50 WBC RBC 2.80 L Hgb 7.1 L Hct 22.5 L MCV 80 L MCH 25 L MCHC 31 L RDW 22.7 H [place] % (Auto) 7.6 H [place] # Monocytes % (Manual) Nucleated RBC % Monocytes # (Manual) PT INR APTT Heparin Anti-Xa Level POC ABG pH POC ABG pCO2 Sodium Potassium Chloride 109.7 H Carbon Dioxide 20 L BUN 27 H Glucose 193 H POC Glucose Calcium Magnesium ALT Alkaline Phosphatase 140 H C-Reactive Protein Total Protein Albumin 2.4 L Triglycerides Urine pH Vancomycin Trough Salicylates Crossmatch
--- NOTE | 2017-09-03 12:38 | Progress Note ---
Assessment and Plan - Acute hypoxemic respiratory failure: On supplemental oxygen with bronchodilators - Fever likely from anterior abdominal wall abscess vs fistula: T max 98.5 F. Blood cx yielded no growth so far. Continue iv antibx per ID. IR consult for possible drainage. - History of colon cancer: s/p gut resection with recent abdominal surgery, 2016, that showed no evidence of met rather an intaabdominal mass for which a diversion was made to relieve intestinal obstruction - Abdominal mass: Malignant vs adhesion. There was no evidence of met per review of recent CT abdomen and previous PET scam 06/2017. However CT chest showed hilar mass likely a metastatic lesion. Discussed the Pulm. Dr Nowak who is persuaded that it is a met - DM: Consistent carbohydrate meal and SSI - DVT with Acute PE. left common femoral vein and right pulm art: Cont. Heperin gtt. Will convert pt to Eliquis. Discussed with Vascular surgeon Dr. Mccain to consider IVC filter and percutanous drainage of ant. Abdominal abcess - Cough: Commence continue - GI prophyalxis with Pepcid Subjective Date of service: 09/03/17 Principal diagnosis: fever from Pneumonia, ant abdomninal; vs abcess, acute DVT and PE Interval history: still having cough and shortness of breath. Afebrile Objective - Constitutional Vitals: Vital Signs - 12hr 09/03/17 09/03/17 09/03/17 02:21 04:44 04:45 Temperature Pulse Rate Pulse Rate [ 88 Anterior Bilateral Throughout] Respiratory 16 16 Rate Respiratory 16 Rate [Abdomen] Respiratory 20 Rate [Anterior Bilateral Throughout] Blood Pressure O2 Sat by Pulse Oximetry 09/03/17 09/03/17 09/03/17 04:57 05:44 05:45 Temperature 98.1 F Pulse Rate 81 Pulse Rate [ Anterior Bilateral Throughout] Respiratory 18 16 20 Rate Respiratory Rate [Abdomen] Respiratory Rate [Anterior Bilateral Throughout] Blood Pressure 165/76 O2 Sat by Pulse 98 Oximetry 09/03/17 09/03/17 09/03/17 07:59 08:30 08:35 Temperature 98.9 F Pulse Rate 77 Pulse Rate [ 78 80 Anterior Bilateral Throughout] Respiratory 18 Rate Respiratory Rate [Abdomen] Respiratory 20 20 Rate [Anterior Bilateral Throughout] Blood Pressure 141/72 O2 Sat by Pulse 98 97 Oximetry 09/03/17 09/03/17 08:58 08:59 Temperature Pulse Rate 77 77 Pulse Rate [ Anterior Bilateral Throughout] Respiratory Rate Respiratory Rate [Abdomen] Respiratory Rate [Anterior Bilateral Throughout] Blood Pressure 141/72 141/72 O2 Sat by Pulse Oximetry General appearance: Present: no acute distress, well-nourished, other (Pale) - EENT Eyes: PERRL, EOM intact ENT: clear oral mucosa - Neck Neck: supple, normal ROM - Respiratory Respiratory effort: normal Respiratory: bilateral: diminished - Cardiovascular Rhythm: regular Heart Sounds: Present: S1 & S2. Absent: gallop, rub Extremities: pulses intact, No edema, normal color, Full ROM - Gastrointestinal General gastrointestinal: Present: soft, non-tender, non-distended, normal bowel sounds - Integumentary Integumentary: clear, warm, dry - Musculoskeletal Musculoskeletal: 1, strength equal bilaterally - Neurologic Neurologic: moves all extremities - Psychiatric Psychiatric: appropriate mood/affect, intact judgment & insight - Labs CBC & Chem 7: 09/03/17 04:50 09/03/17 04:50 Labs: Abnormal lab results 09/02/17 09/02/17 09/02/17 Range/Units 11:41 16:43 19:24 RBC (3.65-5.03) M/mm3 Hgb (11.8-15.2) gm/dl Hct (35.5-45.6) % MCV (84-94) fl MCH (28-32) pg MCHC (32-34) % RDW (13.2-15.2) % [place] % (Auto) (0.0-7.3) % Heparin Anti-Xa Level 0.19 L (0.3-0.7) U.I./ml Chloride (98-107) mmol/L Carbon Dioxide (22-30) mmol/L BUN (9-20) mg/dL Glucose (75-100) mg/dL POC Glucose 211 H 247 H (70-105) Alkaline Phosphatase (35-129) units/L Albumin (3.9-5) g/dL 09/02/17 09/03/17 09/03/17 Range/Units 22:06 04:50 04:50 RBC 2.80 L (3.65-5.03) M/mm3 Hgb 7.1 L (11.8-15.2) gm/dl Hct 22.5 L (35.5-45.6) % MCV 80 L (84-94) fl MCH 25 L (28-32) pg MCHC 31 L (32-34) % RDW 22.7 H (13.2-15.2) % [place] % (Auto) 7.6 H (0.0-7.3) % Heparin Anti-Xa Level (0.3-0.7) U.I./ml Chloride 109.7 H (98-107) mmol/L Carbon Dioxide 20 L (22-30) mmol/L BUN 27 H (9-20) mg/dL Glucose 193 H (75-100) mg/dL POC Glucose 196 H (70-105) Alkaline Phosphatase 140 H (35-129) units/L Albumin 2.4 L (3.9-5) g/dL 09/03/17 09/03/17 Range/Units 08:02 11:54 RBC (3.65-5.03) M/mm3 Hgb (11.8-15.2) gm/dl Hct (35.5-45.6) % MCV (84-94) fl MCH (28-32) pg MCHC (32-34) % RDW (13.2-15.2) % [place] % (Auto) (0.0-7.3) % Heparin Anti-Xa Level (0.3-0.7) U.I./ml Chloride (98-107) mmol/L Carbon Dioxide (22-30) mmol/L BUN (9-20) mg/dL Glucose (75-100) mg/dL POC Glucose 226 H 221 H (70-105) Alkaline Phosphatase (35-129) units/L Albumin (3.9-5) g/dL
[2017-09-03] MEDS: HEPARIN/ 0.45% NACL-25,000 UNIT/500 ML 25,000 UNIT/500 ML BAG IV SCH (15:56)
[2017-09-03] MEDS: NORCO PO PRN (18:37)
[2017-09-03] MEDS ORDERED: TPN ADULT 2,016 ML IV SCH (20:00)
[2017-09-04] MEDS: VANCOMYCIN VIAL 500 MG in NACL 0.9% 100 ML IV SCH ×3 (00:35→23:33)
[2017-09-04] MEDS: ZOSYN/NS 4.5GM/100ML 4.5 GM/100 ML VIAL IV SCH ×3 (00:36→17:11)
[2017-09-04] MEDS: ROXICODONE PO PRN ×2 (00:36→22:27)
[2017-09-04] MEDS: NORCO PO PRN ×3 (00:37→17:14)
[2017-09-04] MEDS: NOVOLOG SUB-Q SCH ×5 (01:22→22:53)
[2017-09-04] MEDS: DUONEB *Not for PRN Use IH SCH ×4 (03:22→21:07)
[2017-09-04 05:54] LABS: Phosphorous 3.6 mg/dL (2.5-4.5)
[2017-09-04] MEDS: HEPARIN/ 0.45% NACL-25,000 UNIT/500 ML 25,000 UNIT/500 ML BAG IV SCH ×2 (05:54→19:50)
[2017-09-04] MEDS: CARDURA PO SCH ×2 (09:32→22:27)
[2017-09-04] MEDS: ZESTRIL PO SCH (09:32)
[2017-09-04] MEDS: GLUCOPHAGE PO SCH ×2 (09:32→17:11)
[2017-09-04] MEDS: NORVASC PO SCH ×2 (09:33→16:15)
[2017-09-04] MEDS: PERIACTIN PO SCH ×2 (09:33→22:27)
[2017-09-04] MEDS: TENORMIN PO SCH ×2 (09:33→22:27)
--- NOTE | 2017-09-04 12:55 | Progress Note ---
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 1. Recommend Heme onc contribute to anticoagulation of choice. Especially if there is malignancy involved. Also need to ask their opinion on lung lesion. Question would be if this is a new primary or possible met from recurrent disease. Please see next line for more details 2. Suggest Heme/Onc evaluate and review CT. Not sure if patient needs biopsy vs repeat PET scan. Most likely this is a metastatic lesion to the lung and less likely a new primary lung malignancy but will defer to them. 3. Continue supplemental O2 wean as tolerated. 4. Anticoagulation for PE 5. At this point, no further new recs to offer from a lung standpoint. Will sign off. If we are needed further, please don't hesitate to reconsult. Subjective Date of service: 09/04/17 Principal diagnosis: fever from Pneumonia, ant abdomninal; vs abcess, acute DVT and PE Interval history: No acute events. Reviewed IMS note from yesterday. Objective Vital Signs - 12hr 09/04/17 09/04/17 09/04/17 01:36 01:37 03:22 Temperature Pulse Rate Pulse Rate [ 92 H Anterior Bilateral Throughout] Respiratory 12 20 Rate Respiratory 18 Rate [Anterior Bilateral Throughout] Blood Pressure O2 Sat by Pulse Oximetry 09/04/17 09/04/17 09/04/17 05:39 07:53 08:30 Temperature 100.0 F H 100.2 F H Pulse Rate 85 Pulse Rate [ 82 Anterior Bilateral Throughout] Respiratory 20 22 Rate Respiratory 28 H Rate [Anterior Bilateral Throughout] Blood Pressure 164/78 160/74 O2 Sat by Pulse 97 100 Oximetry 09/04/17 09/04/17 09/04/17 08:42 09:32 09:33 Temperature Pulse Rate 85 85 Pulse Rate [ 83 Anterior Bilateral Throughout] Respiratory Rate Respiratory 22 Rate [Anterior Bilateral Throughout] Blood Pressure 160/74 160/74 O2 Sat by Pulse Oximetry Constitutional: no acute distress, other (very drowsy, lethargic, but easily arousable. Not coughing consistently) Eyes: non-icteric ENT: oropharynx moist Neck: supple Effort: normal Ascultation: Bilateral: diminished breath sounds Percussion: Bilateral: not dull Cardiovascular: regular rate and rhythm Extremities: anasarca CBC and BMP: 09/03/17 04:50 09/03/17 04:50 ABG, PT/INR, D-dimer: ABG POC ABG pH 7.485 (7.35-7.45) H 09/01/17 20:46 POC ABG pCO2 25.0 (35-45) L 09/01/17 20:46 POC ABG pO2 93 (80-105) 09/01/17 20:46 POC ABG HCO3 18.9 09/01/17 20:46 POC ABG Total CO2 20 09/01/17 20:46 POC ABG O2 Sat 98 09/01/17 20:46 PT/INR, D-dimer PT 21.8 Sec. (12.2-14.9) H 08/28/17 20:01 INR 1.80 (0.87-1.13) H 08/28/17 20:01 Abnormal lab findings: Abnormal Labs 08/27/17 08/27/17 08/27/17 03:02 03:02 03:02 WBC 14.6 H RBC 3.46 L Hgb 8.4 L Hct 26.5 L MCV 77 L MCH 24 L MCHC RDW 25.8 H [place] % (Auto) [place] # Monocytes % (Manual) 8.0 H Nucleated RBC % 3.0 H Monocytes # (Manual) 1.2 H PT INR APTT Heparin Anti-Xa Level POC ABG pH POC ABG pCO2 Sodium 136 L Potassium Chloride 93.3 L Carbon Dioxide BUN 21 H Glucose 104 H POC Glucose Calcium Magnesium ALT 62 H Alkaline Phosphatase 133 H C-Reactive Protein Total Protein 8.5 H Albumin 3.2 L Triglycerides Urine pH Vancomycin Trough Salicylates < 0.3 L Crossmatch 08/27/17 08/27/17 08/27/17 05:00 07:43 11:20 WBC RBC Hgb Hct MCV MCH MCHC RDW [place] % (Auto) [place] # Monocytes % (Manual) Nucleated RBC % Monocytes # (Manual) PT INR APTT Heparin Anti-Xa Level POC ABG pH POC ABG pCO2 Sodium Potassium Chloride Carbon Dioxide BUN Glucose POC Glucose 116 H 110 H Calcium Magnesium ALT Alkaline Phosphatase C-Reactive Protein Total Protein Albumin Triglycerides Urine pH 9.0 H Vancomycin Trough Salicylates Crossmatch 08/27/17 08/27/17 08/28/17 16:36 22:00 04:41 WBC RBC Hgb Hct MCV MCH MCHC RDW [place] % (Auto) [place] # Monocytes % (Manual) Nucleated RBC % Monocytes # (Manual) PT INR APTT Heparin Anti-Xa Level POC ABG pH POC ABG pCO2 Sodium Potassium Chloride Carbon Dioxide BUN Glucose 139 H POC Glucose 108 H 130 H Calcium 8.2 L Magnesium ALT Alkaline Phosphatase C-Reactive Protein Total Protein Albumin Triglycerides Urine pH Vancomycin Trough Salicylates Crossmatch 08/28/17 08/28/17 08/28/17 04:41 06:46 07:16 WBC RBC Hgb Hct MCV MCH MCHC RDW [place] % (Auto) [place] # Monocytes % (Manual) Nucleated RBC % Monocytes # (Manual) PT 25.2 H INR 2.17 H APTT Heparin Anti-Xa Level POC ABG pH POC ABG pCO2 Sodium Potassium Chloride Carbon Dioxide BUN Glucose POC Glucose 176 H 175 H Calcium Magnesium ALT Alkaline Phosphatase C-Reactive Protein Total Protein Albumin Triglycerides Urine pH Vancomycin Trough Salicylates Crossmatch 08/28/17 08/28/17 08/28/17 11:41 16:47 20:01 WBC RBC Hgb Hct MCV MCH MCHC RDW [place] % (Auto) [place] # Monocytes % (Manual) Nucleated RBC % Monocytes # (Manual) PT 21.8 H INR 1.80 H APTT 56.5 H Heparin Anti-Xa Level POC ABG pH POC ABG pCO2 Sodium Potassium Chloride Carbon Dioxide BUN Glucose POC Glucose 176 H 206 H Calcium Magnesium ALT Alkaline Phosphatase C-Reactive Protein Total Protein Albumin Triglycerides Urine pH Vancomycin Trough Salicylates Crossmatch 08/28/17 08/29/17 08/29/17 20:43 00:07 02:30 WBC RBC Hgb 6.4 L Hct 20.6 L MCV MCH MCHC RDW [place] % (Auto) [place] # Monocytes % (Manual) Nucleated RBC % Monocytes # (Manual) PT INR APTT Heparin Anti-Xa Level POC ABG pH POC ABG pCO2 Sodium Potassium Chloride Carbon Dioxide BUN Glucose POC Glucose 259 H Calcium Magnesium ALT Alkaline Phosphatase C-Reactive Protein Total Protein Albumin Triglycerides Urine pH Vancomycin Trough Salicylates Crossmatch See Detail 08/29/17 08/29/17 08/29/17 02:56 07:25 11:40 WBC RBC Hgb Hct MCV MCH MCHC RDW [place] % (Auto) [place] # Monocytes % (Manual) Nucleated RBC % Monocytes # (Manual) PT INR APTT Heparin Anti-Xa Level POC ABG pH POC ABG pCO2 Sodium Potassium 3.5 L Chloride Carbon Dioxide 21 L BUN 21 H Glucose 214 H POC Glucose 220 H 174 H Calcium 8.0 L Magnesium 1.60 L ALT Alkaline Phosphatase C-Reactive Protein Total Protein Albumin Triglycerides Urine pH Vancomycin Trough Salicylates Crossmatch 08/29/17 08/29/17 08/29/17 16:10 16:40 17:48 WBC RBC Hgb 8.5 L Hct 26.7 L D MCV MCH MCHC RDW [place] % (Auto) [place] # Monocytes % (Manual) Nucleated RBC % Monocytes # (Manual) PT INR APTT Heparin Anti-Xa Level POC ABG pH POC ABG pCO2 Sodium Potassium Chloride Carbon Dioxide BUN Glucose POC Glucose 178 H Calcium Magnesium ALT Alkaline Phosphatase C-Reactive Protein Total Protein 3.9 L D Albumin 1.5 L Triglycerides Urine pH Vancomycin Trough Salicylates Crossmatch 08/29/17 08/29/17 08/30/17 18:32 22:19 04:25 WBC RBC Hgb 7.9 L Hct 25.2 L MCV MCH MCHC RDW [place] % (Auto) [place] # Monocytes % (Manual) Nucleated RBC % Monocytes # (Manual) PT INR APTT Heparin Anti-Xa Level POC ABG pH POC ABG pCO2 Sodium Potassium Chloride Carbon Dioxide BUN Glucose POC Glucose 247 H Calcium Magnesium ALT Alkaline Phosphatase C-Reactive Protein Total Protein Albumin Triglycerides Urine pH Vancomycin Trough 25.5 H Salicylates Crossmatch 08/30/17 08/30/17 08/30/17 04:25 07:53 11:53 WBC RBC Hgb Hct MCV MCH MCHC RDW [place] % (Auto) [place] # Monocytes % (Manual) Nucleated RBC % Monocytes # (Manual) PT INR APTT Heparin Anti-Xa Level POC ABG pH POC ABG pCO2 Sodium 136 L Potassium 3.2 L Chloride Carbon Dioxide 18 L BUN 29 H Glucose 203 H POC Glucose 193 H 246 H Calcium Magnesium ALT Alkaline Phosphatase C-Reactive Protein Total Protein Albumin Triglycerides Urine pH Vancomycin Trough Salicylates Crossmatch 08/30/17 08/30/17 08/31/17 16:47 21:36 04:28 WBC RBC Hgb Hct MCV MCH MCHC RDW [place] % (Auto) [place] # Monocytes % (Manual) Nucleated RBC % Monocytes # (Manual) PT INR APTT Heparin Anti-Xa Level POC ABG pH POC ABG pCO2 Sodium Potassium 3.5 L Chloride 111.0 H Carbon Dioxide 19 L BUN 25 H Glucose 53 L POC Glucose 159 H 110 H Calcium Magnesium ALT Alkaline Phosphatase C-Reactive Protein Total Protein 6.0 L D Albumin 2.2 L Triglycerides Urine pH Vancomycin Trough Salicylates Crossmatch 08/31/17 08/31/17 08/31/17 04:28 07:31 07:34 WBC RBC 2.99 L Hgb 7.8 L Hct 23.8 L MCV 80 L MCH 26 L MCHC RDW 22.7 H [place] % (Auto) 13.0 H [place] # 1.3 H Monocytes % (Manual) Nucleated RBC % Monocytes # (Manual) PT INR APTT Heparin Anti-Xa Level POC ABG pH POC ABG pCO2 Sodium Potassium Chloride Carbon Dioxide BUN Glucose POC Glucose < 40 L 42 L Calcium Magnesium ALT Alkaline Phosphatase C-Reactive Protein Total Protein Albumin Triglycerides Urine pH Vancomycin Trough Salicylates Crossmatch 08/31/17 08/31/17 08/31/17 09:10 16:45 22:56 WBC RBC Hgb Hct MCV MCH MCHC RDW [place] % (Auto) [place] # Monocytes % (Manual) Nucleated RBC % Monocytes # (Manual) PT INR APTT Heparin Anti-Xa Level POC ABG pH POC ABG pCO2 Sodium Potassium Chloride Carbon Dioxide BUN Glucose POC Glucose 64 L 173 H 167 H Calcium Magnesium ALT Alkaline Phosphatase C-Reactive Protein Total Protein Albumin Triglycerides Urine pH Vancomycin Trough Salicylates Crossmatch 09/01/17 09/01/17 09/01/17 04:05 04:05 07:26 WBC RBC Hgb 8.4 L Hct 26.3 L MCV MCH MCHC RDW [place] % (Auto) [place] # Monocytes % (Manual) Nucleated RBC % Monocytes # (Manual) PT INR APTT Heparin Anti-Xa Level POC ABG pH POC ABG pCO2 Sodium Potassium Chloride 109.0 H Carbon Dioxide 17 L BUN 23 H Glucose 187 H POC Glucose 256 H Calcium Magnesium ALT Alkaline Phosphatase C-Reactive Protein Total Protein Albumin Triglycerides 210 H Urine pH Vancomycin Trough Salicylates Crossmatch 09/01/17 09/01/17 09/01/17 10:43 10:43 11:53 WBC RBC Hgb Hct MCV MCH MCHC RDW [place] % (Auto) [place] # Monocytes % (Manual) Nucleated RBC % Monocytes # (Manual) PT INR APTT Heparin Anti-Xa Level POC ABG pH POC ABG pCO2 Sodium Potassium Chloride Carbon Dioxide BUN Glucose POC Glucose 251 H Calcium Magnesium ALT Alkaline Phosphatase C-Reactive Protein 28.80 H Total Protein Albumin Triglycerides Urine pH Vancomycin Trough 27.7 H Salicylates Crossmatch 09/01/17 09/01/17 09/01/17 17:05 20:46 Unknown WBC RBC Hgb Hct MCV MCH MCHC RDW [place] % (Auto) [place] # Monocytes % (Manual) Nucleated RBC % Monocytes # (Manual) PT INR APTT Heparin Anti-Xa Level 0.11 L POC ABG pH 7.485 H POC ABG pCO2 25.0 L Sodium Potassium Chloride Carbon Dioxide BUN Glucose POC Glucose 180 H Calcium Magnesium ALT Alkaline Phosphatase C-Reactive Protein Total Protein Albumin Triglycerides Urine pH Vancomycin Trough Salicylates Crossmatch 09/02/17 09/02/17 09/02/17 01:02 05:15 05:15 WBC RBC Hgb Hct MCV MCH MCHC RDW [place] % (Auto) [place] # Monocytes % (Manual) Nucleated RBC % Monocytes # (Manual) PT INR APTT Heparin Anti-Xa Level 0.13 L POC ABG pH POC ABG pCO2 Sodium Potassium Chloride 110.3 H Carbon Dioxide 19 L BUN 23 H Glucose 172 H POC Glucose 222 H Calcium Magnesium ALT Alkaline Phosphatase C-Reactive Protein Total Protein Albumin Triglycerides Urine pH Vancomycin Trough Salicylates Crossmatch 09/02/17 09/02/17 09/02/17 07:46 10:03 11:41 WBC RBC Hgb Hct MCV MCH MCHC RDW [place] % (Auto) [place] # Monocytes % (Manual) Nucleated RBC % Monocytes # (Manual) PT INR APTT Heparin Anti-Xa Level < 0.10 L POC ABG pH POC ABG pCO2 Sodium Potassium Chloride Carbon Dioxide BUN Glucose POC Glucose 217 H 211 H Calcium Magnesium ALT Alkaline Phosphatase C-Reactive Protein Total Protein Albumin Triglycerides Urine pH Vancomycin Trough Salicylates Crossmatch 09/02/17 09/02/17 09/02/17 16:43 19:24 22:06 WBC RBC Hgb Hct MCV MCH MCHC RDW [place] % (Auto) [place] # Monocytes % (Manual) Nucleated RBC % Monocytes # (Manual) PT INR APTT Heparin Anti-Xa Level 0.19 L POC ABG pH POC ABG pCO2 Sodium Potassium Chloride Carbon Dioxide BUN Glucose POC Glucose 247 H 196 H Calcium Magnesium ALT Alkaline Phosphatase C-Reactive Protein Total Protein Albumin Triglycerides Urine pH Vancomycin Trough Salicylates Crossmatch 09/03/17 09/03/17 09/03/17 04:50 04:50 08:02 WBC RBC 2.80 L Hgb 7.1 L Hct 22.5 L MCV 80 L MCH 25 L MCHC 31 L RDW 22.7 H [place] % (Auto) 7.6 H [place] # Monocytes % (Manual) Nucleated RBC % Monocytes # (Manual) PT INR APTT Heparin Anti-Xa Level POC ABG pH POC ABG pCO2 Sodium Potassium Chloride 109.7 H Carbon Dioxide 20 L BUN 27 H Glucose 193 H POC Glucose 226 H Calcium Magnesium ALT Alkaline Phosphatase 140 H C-Reactive Protein Total Protein Albumin 2.4 L Triglycerides Urine pH Vancomycin Trough Salicylates Crossmatch 09/03/17 09/03/17 09/03/17 11:54 16:26 22:03 WBC RBC Hgb Hct MCV MCH MCHC RDW [place] % (Auto) [place] # Monocytes % (Manual) Nucleated RBC % Monocytes # (Manual) PT INR APTT Heparin Anti-Xa Level POC ABG pH POC ABG pCO2 Sodium Potassium Chloride Carbon Dioxide BUN Glucose POC Glucose 221 H 123 H 206 H Calcium Magnesium ALT Alkaline Phosphatase C-Reactive Protein Total Protein Albumin Triglycerides Urine pH Vancomycin Trough Salicylates Crossmatch 09/04/17 09/04/17 07:56 11:35 WBC RBC Hgb Hct MCV MCH MCHC RDW [place] % (Auto) [place] # Monocytes % (Manual) Nucleated RBC % Monocytes # (Manual) PT INR APTT Heparin Anti-Xa Level POC ABG pH POC ABG pCO2 Sodium Potassium Chloride Carbon Dioxide BUN Glucose POC Glucose 205 H 263 H Calcium Magnesium ALT Alkaline Phosphatase C-Reactive Protein Total Protein Albumin Triglycerides Urine pH Vancomycin Trough Salicylates Crossmatch
--- NOTE | 2017-09-04 13:27 | Progress Note ---
Assessment and Plan - Acute hypoxemic respiratory failure: On supplemental oxygen with bronchodilators - Anemia: of chronic disease. Transfuse one unit - Fever likely from anterior abdominal wall abscess vs fistula: T max 98.5 F. Blood cx yielded no growth so far. Continue iv antibx per ID. IR consult for possible drainage. - History of colon cancer: s/p gut resection with recent abdominal surgery, 2016, that showed no evidence of met rather an intaabdominal mass for which a diversion was made to relieve intestinal obstruction - Abdominal mass: Malignant vs adhesion. There was no evidence of met per review of recent CT abdomen and previous PET scam 06/2017. However CT chest showed hilar mass likely a metastatic lesion. Discussed the Pulm. Dr Nowak who is persuaded that it is a met - DM: Consistent carbohydrate meal and SSI - DVT with Acute PE. left common femoral vein and right pulm art: Cont. Heperin gtt. Will convert pt to Eliquis. Discussed with Vascular surgeon Dr. Mccain to consider IVC filter and percutanous drainage of ant. Abdominal abcess - Cough: Commence continue - GI prophyalxis with Pepcid Subjective Date of service: 09/04/17 Principal diagnosis: fever from Pneumonia, ant abdomninal; vs abcess, acute DVT and PE Interval history: still coughing with and shortness of breath. Afebrile Objective - Constitutional Vitals: Vital Signs - 12hr 09/04/17 09/04/17 09/04/17 01:36 01:37 03:22 Temperature Pulse Rate Pulse Rate [ 92 H Anterior Bilateral Throughout] Respiratory 12 20 Rate Respiratory 18 Rate [Anterior Bilateral Throughout] Blood Pressure O2 Sat by Pulse Oximetry 09/04/17 09/04/17 09/04/17 05:39 07:53 08:30 Temperature 100.0 F H 100.2 F H Pulse Rate 85 Pulse Rate [ 82 Anterior Bilateral Throughout] Respiratory 20 22 Rate Respiratory 28 H Rate [Anterior Bilateral Throughout] Blood Pressure 164/78 160/74 O2 Sat by Pulse 97 100 Oximetry 09/04/17 09/04/17 09/04/17 08:42 09:32 09:33 Temperature Pulse Rate 85 85 Pulse Rate [ 83 Anterior Bilateral Throughout] Respiratory Rate Respiratory 22 Rate [Anterior Bilateral Throughout] Blood Pressure 160/74 160/74 O2 Sat by Pulse Oximetry General appearance: Present: no acute distress, well-nourished - EENT Eyes: PERRL, EOM intact - Neck Neck: supple, normal ROM - Respiratory Respiratory effort: normal Respiratory: right: diminished - Cardiovascular Rhythm: regular Heart Sounds: Present: S1 & S2. Absent: gallop, rub Extremities: pulses intact, No edema, normal color, Full ROM - Gastrointestinal General gastrointestinal: Present: soft, non-tender, non-distended, normal bowel sounds - Integumentary Integumentary: clear, warm, dry - Musculoskeletal Musculoskeletal: 1, strength equal bilaterally - Neurologic Neurologic: moves all extremities - Psychiatric Psychiatric: memory intact, appropriate mood/affect, intact judgment & insight - Labs CBC & Chem 7: 09/03/17 04:50 09/03/17 04:50 Labs: Abnormal lab results 09/03/17 09/03/17 09/04/17 Range/Units 16:26 22:03 07:56 POC Glucose 123 H 206 H 205 H (70-105) 09/04/17 Range/Units 11:35 POC Glucose 263 H (70-105)
[2017-09-04] MEDS ORDERED: TPN ADULT 2,016 ML IV SCH (20:00)
[2017-09-04] MEDS: TYLENOL PO PRN (22:28)
[2017-09-05] MEDS: ZOSYN/NS 4.5GM/100ML 4.5 GM/100 ML VIAL IV SCH ×3 (00:16→18:00)
[2017-09-05] MEDS: DUONEB *Not for PRN Use IH SCH ×4 (02:28→21:18)
[2017-09-05] MEDS: NORCO PO PRN ×2 (05:03→19:21)
[2017-09-05 08:31] LABS: Basophils % (Auto) 0.5 % (0.0-1.8); Eosinophils % (Auto) 2.9 % (0.0-4.3); Hematocrit 22.6 % (35.5-45.6); Hemoglobin 6.9 gm/dl (11.8-15.2); Mean Corpuscular HGB Conc 30 % (32-34); Mean Corpuscular Volume 81 fl (84-94); Platelet Count 346 K/mm3 (140-440); Red Blood Count 2.81 M/mm3 (3.65-5.03); White Blood Count 12.5 K/mm3 (4.5-11.0)
[2017-09-05 08:36] LABS: Mean Corpuscular Hemoglobin 24 pg (28-32); Red Cell Distribution Width 22.4 % (13.2-15.2)
[2017-09-05] MEDS: GLUCOPHAGE PO SCH ×2 (08:42→18:14)
[2017-09-05 08:45] LABS: Alanine Aminotransferase 37 units/L (7-56); Albumin 2.4 g/dL (3.9-5); Albumin/Globulin Ratio 0.4 %; Alkaline Phosphatase 169 units/L (35-129); Anion Gap 17 mmol/L; BUN/Creatinine Ratio 25; Blood Urea Nitrogen 27 mg/dL (9-20); Calcium 9.5 mg/dL (8.4-10.2); Carbon Dioxide 20 mmol/L (22-30); Glucose 219 mg/dL (75-100); Potassium 4.8 mmol/L (3.6-5.0); Sodium 141 mmol/L (137-145); Total Protein 7.8 g/dL (6.3-8.2)
[2017-09-05] MEDS: HEPARIN/ 0.45% NACL-25,000 UNIT/500 ML 25,000 UNIT/500 ML BAG IV SCH (10:39)
[2017-09-05] MEDS: NORVASC PO SCH (10:41)
[2017-09-05] MEDS: TENORMIN PO SCH ×3 (10:41→23:43)
[2017-09-05] MEDS: ZESTRIL PO SCH (10:41)
[2017-09-05] MEDS: CARDURA PO SCH ×2 (10:42→23:35)
[2017-09-05] MEDS: PERIACTIN PO SCH ×2 (10:43→23:35)
[2017-09-05] MEDS: VANCOMYCIN VIAL 500 MG in NACL 0.9% 100 ML IV SCH ×2 (12:00→23:34)
[2017-09-05] MEDS: NOVOLOG SUB-Q SCH ×3 (12:19→22:30)
--- NOTE | 2017-09-05 14:20 | Progress Note ---
Assessment and Plan Assessment: 1) Sepsis: still low grade fever. Etiology most likely - multifactorial PE +/ - abdominal wall infection ? abscess ? fistula ? +/- presumed pneumonia 2) Abdominal wall infection ? abscess ? fistula . CRP=28 3) Presumed bilateral pneumonia 4) DVTs 5) Colon cancer s/p colon resection, small bowel bypass, fistula repair, colostomy reversal in several stages most recently Jul 2017. 6) DM 7) PE-right main PA embolus on heparin 8) Anemia-severe Plan: -IR eval -continue zosyn day 10 of 14 and vancomycin day 4 of 7- stop zosyn soon I will be off tomorrow, available on the phone and will be back rounding on the weekend Annie Stanford MD Infectious Diseases Specialist [facility] M [phone] O [phone] Subjective Date of service: 09/05/17 Principal diagnosis: fever from Pneumonia, ant abdomninal; vs abcess, acute DVT and PE Interval history: Pt feesl better, breathing is better, still 100.2 temp Microbiology: Blood cultures: 08/27 neg 08/31 neg 09/01 ngtd Urine cultures: Current Antimicrobials: Zosyn 08/27 Vancomycin 08/30 Previous Antimicrobials: Objective - Exam Narrative Exam: General appearance: Alert in NAD, conversant Eyes: anicteric sclerae, moist conjunctivae; no lid-lag; PERRLA HENT: Atraumatic; oropharynx clear Neck: Trachea midline; supple, no thyromegaly or lymphadenopathy Lungs: kiko wheezing / rhonchi CV: RRR Abdomen: Soft, +midline old scar with marked induration and tenderness Extremities: marked left leg edema Skin: Normal temperature, turgor and texture; no rash, ulcers or subcutaneous nodules Psych: Appropriate affect, alert and oriented to person, place and time. Neuro: alert and oriented x 3. Moving all extermities Lines: - Constitutional Vitals: Vital Signs Temp Pulse Resp BP Pulse Ox 100.2 F H 93 H 29 H 162/80 98 09/05/17 03:29 09/05/17 10:41 09/05/17 08:33 09/05/17 10:41 09/05/17 08:15 Temperature -Last 24 Hours Temperature 100.2 F Temperature 100.2 F Temperature 99.3 F - Labs CBC & Chem 7: 09/05/17 08:00 09/05/17 08:00 Labs: Abnormal lab results 09/04/17 09/04/17 09/05/17 Range/Units 16:30 22:33 08:00 WBC 12.5 H (4.5-11.0) K/mm3 RBC 2.81 L (3.65-5.03) M/mm3 Hgb 6.9 L (11.8-15.2) gm/dl Hct 22.6 L (35.5-45.6) % MCV 81 L (84-94) fl MCH 24 L (28-32) pg MCHC 30 L (32-34) % RDW 22.4 H (13.2-15.2) % [place] % (Auto) 8.0 H (0.0-7.3) % [place] # 1.0 H (0.0-0.8) K/mm3 Chloride (98-107) mmol/L Carbon Dioxide (22-30) mmol/L BUN (9-20) mg/dL Glucose (75-100) mg/dL POC Glucose 158 H 217 H (70-105) Alkaline Phosphatase (35-129) units/L Albumin (3.9-5) g/dL 09/05/17 09/05/17 Range/Units 08:00 11:58 WBC (4.5-11.0) K/mm3 RBC (3.65-5.03) M/mm3 Hgb (11.8-15.2) gm/dl Hct (35.5-45.6) % MCV (84-94) fl MCH (28-32) pg MCHC (32-34) % RDW (13.2-15.2) % [place] % (Auto) (0.0-7.3) % [place] # (0.0-0.8) K/mm3 Chloride 109.0 H (98-107) mmol/L Carbon Dioxide 20 L (22-30) mmol/L BUN 27 H (9-20) mg/dL Glucose 219 H (75-100) mg/dL POC Glucose 251 H (70-105) Alkaline Phosphatase 169 H (35-129) units/L Albumin 2.4 L (3.9-5) g/dL
--- NOTE | 2017-09-05 18:28 | Progress Note ---
Assessment and Plan - Patient Problems (1) Colon cancer metastasized to multiple sites Current Visit: Yes Status: Ruled-out Plan to address problem: Folowup CT with oral contrast did not show any mets in Liver or Kidney as previously reported by another Radiologist over the past weekend . Possible pneumonis vs atelectasis in the lung but no mets .Result discussed with patient , his and his brother . (2) Altered mental status Current Visit: Yes Status: Resolved Qualifiers: Altered mental status type: transient alteration of awareness Qualified Code(s): R40.4 - Transient alteration of awareness Plan to address problem: Mental status now improved and less disorientation . (3) Fever Current Visit: Yes Status: Acute Qualifiers: Fever type: unspecified Qualified Code(s): R50.9 - Fever, unspecified Plan to address problem: CT abdomen suggesting possible collection or fistula with connection to abdominal wall . Will continue to monitor .Patient may need exploration of abdominal wall collection for possible abscess . (4) Hypertension Current Visit: Yes Status: Acute Qualifiers: Hypertension type: essential hypertension Qualified Code(s): I10 - Essential (primary) hypertension Plan to address problem: Blood pressures is fairly stable on current medication would maintain the same at this time (5) Type 2 diabetes mellitus without complications Current Visit: Yes Status: Acute Plan to address problem: Patient reported with Hypoglycemia this morning ,will hold long acting Insulin Levermir and continue sliding scale insulin for now (6) Deep vein blood clot of left lower extremity Current Visit: Yes Status: Acute Plan to address problem: Patient restarted on IV heparin Subjective Date of service: 09/05/17 Principal diagnosis: fever from Pneumonia, ant abdomninal; vs abcess, acute DVT and PE Interval history: Patient stated that he is doing well ,less short of breath ,fever subsiding , appetite still poor ,cough is poorly productive and no chest pain . Objective - Exam Narrative Exam: GENERAL: Ill looking, sleepy but responds to name call and appropriate responding to questions appropriately not in distress HEENT: [Head examination showed normocephalic. Patient is not pale, not jaundiced, and not cyanosed.] [Mucous membrane is moist, pharynx is clear, no exudates or hemorrhage. Dentition is normal.] NECK: [Supple. Neck showed good range of motion. There is no adenopathy noted. No jugular venous distention and no thyromegaly.] [Neck auscultation showed no carotid bruit.] CHEST/LUNGS: Poor Air exchange bibasally, no wheezes no rales. HEART/CARDIOVASCULAR: [No murmur. Regular rate and rhythm. S1 and S2 only, no S3 gallop, no S4.] ABDOMEN: [Abdomen is protuberant, diffusely tender to deep palpation, active bowel sounds. Surgical site well-healed, diffusely poorly palpated mass in the left lower quadrant SKIN: [There is no rash. There is no edema. There is no diaphoresis.] NEURO: [The patient is awake, alert, and oriented. The patient is cooperative. The patient has no focal neurologic deficits. Cranial nerves 2-12 grossly normal, power is 5/5 in all the extremities tested. The patient has normal speech and gait.] MUSCULOSKELETAL: [There is no tenderness or deformity. There is no limitation range of motion. There is no evidence of acute injury.] EXTREMITIES: Left lower extremity nonpitting edema up to the knee - Constitutional Vitals: Vital Signs - 12hr 09/05/17 09/05/17 09/05/17 08:15 08:33 10:41 Temperature Pulse Rate 93 H Pulse Rate [ 89 Anterior Bilateral Throughout] Respiratory Rate Respiratory 20 29 H Rate [Anterior Bilateral Throughout] Blood Pressure 162/80 Blood Pressure [Right] O2 Sat by Pulse 98 Oximetry 09/05/17 09/05/17 09/05/17 14:25 14:35 16:00 Temperature 98.7 F Pulse Rate 80 Pulse Rate [ 86 90 Anterior Bilateral Throughout] Respiratory 20 Rate Respiratory 20 18 Rate [Anterior Bilateral Throughout] Blood Pressure Blood Pressure 153/72 [Right] O2 Sat by Pulse 96 Oximetry - Labs CBC & Chem 7: 09/05/17 08:00 09/05/17 08:00 Labs: Abnormal lab results 09/04/17 09/05/17 09/05/17 Range/Units 22:33 08:00 08:00 WBC 12.5 H (4.5-11.0) K/mm3 RBC 2.81 L (3.65-5.03) M/mm3 Hgb 6.9 L (11.8-15.2) gm/dl Hct 22.6 L (35.5-45.6) % MCV 81 L (84-94) fl MCH 24 L (28-32) pg MCHC 30 L (32-34) % RDW 22.4 H (13.2-15.2) % [place] % (Auto) 8.0 H (0.0-7.3) % [place] # 1.0 H (0.0-0.8) K/mm3 Chloride 109.0 H (98-107) mmol/L Carbon Dioxide 20 L (22-30) mmol/L BUN 27 H (9-20) mg/dL Glucose 219 H (75-100) mg/dL POC Glucose 217 H (70-105) Alkaline Phosphatase 169 H (35-129) units/L Albumin 2.4 L (3.9-5) g/dL 09/05/17 09/05/17 Range/Units 11:58 15:52 WBC (4.5-11.0) K/mm3 RBC (3.65-5.03) M/mm3 Hgb (11.8-15.2) gm/dl Hct (35.5-45.6) % MCV (84-94) fl MCH (28-32) pg MCHC (32-34) % RDW (13.2-15.2) % [place] % (Auto) (0.0-7.3) % [place] # (0.0-0.8) K/mm3 Chloride (98-107) mmol/L Carbon Dioxide (22-30) mmol/L BUN (9-20) mg/dL Glucose (75-100) mg/dL POC Glucose 251 H 200 H (70-105) Alkaline Phosphatase (35-129) units/L Albumin (3.9-5) g/dL
[2017-09-05] MEDS ORDERED: INTRALIPID 20% 250 ML IV SCH (20:00)
[2017-09-05] MEDS ORDERED: TPN ADULT 2,016 ML IV SCH (20:00)
--- NOTE | 2017-09-05 20:27 | Consultation ---
History of Present Illness - Reason for Consult Consult date: 09/05/17 abd mass/ lung mass, PE/DVT Requesting physician: YAN SNEED - History of Present Illness Thank you for this consult, patient is seen/examined, record reviewed, case, d/ w Dr sneed yesterday ,when he called me to see this patient for Dr BOYD. I have also d/w patient , and his family at the bed side in detail. As per the familys account, , and my recollection, i had seen patient in the office, sent agreed with DR Mirza, that he sees Dr Zamorano for surgery. Some how, he was taken to [facility] for surgery at the rec of DR BOYD. patient was opened up, bot to close due to the delicate location of the abdominal mass, and its association to the great vessels, and the intestines, hence deemed inoperable. He was also found to have a new lung mass. ?mets, vs primary tumor, probably the former.Mean while , patient has developed a left leg DVT, and acute PE. all for obvious reasons of the surgery/and his hx of cancer. He is currently on IV heparin. He probably also had obstructive pneumonitis. Best option for the cancer tx is either sequential, vs concurrent Chemo /Rad.But for now he definitely needs an IVC filter placement once safe to do so.I will contact DR BOYD ,and relate the story to him. Past History Past Medical History: cancer, diabetes, hypertension, other (colon cancer). denies: No medical history Past Surgical History: bowel surgery Social history: smoking, alcohol abuse, prescription drug abuse Family history: no significant family history Medications and Allergies Allergies Allergy/AdvReac Type Severity Reaction Status Date / Time No Known Allergies Allergy Verified 01/01/15 13:25 Home Medications Medication Instructions Recorded Confirmed Last Taken Type Amlodipine Besylate/Benazepril 1 tab PO DAILY 01/01/15 08/27/17 08/26/17 History [amLODIPine-Benazepril 10/20 mg] Atenolol [Atenolol] 100 mg PO BID 01/01/15 08/27/17 08/26/17 History Insulin Glargine,Hum.rec.anlog 20 units SUB-Q HS 01/01/15 08/27/17 08/26/17 History [Lantus Solostar] Omeprazole [Omeprazole] 20 mg PO DAILY 01/01/15 08/27/17 08/26/17 History glyBURIDE/METFORMIN HCL 10 tab PO DAILY 01/01/15 08/27/17 08/26/17 History [Glyburide-Metformin 5-500 mg] Doxazosin [Cardura] 2 mg PO BID 08/27/17 08/27/17 08/26/17 History Insulin Glargine [Lantus] 20 unit SUB-Q QHS 08/27/17 08/27/17 08/26/17 History Simethicone [Gas Relief] 80 mg PO ACHS 08/27/17 08/27/17 08/26/17 History Warfarin [Coumadin] 7.5 mg PO QDAY 08/27/17 08/27/17 08/25/17 History metFORMIN [Glucophage] 500 mg PO BID 08/27/17 08/27/17 08/26/17 History oxyCODONE [Roxicodone] 5 mg PO Q4HR PRN 08/27/17 08/27/17 08/26/17 History Active Meds: Active Medications Acetaminophen (Tylenol) 650 mg PO Q6H PRN PRN Reason: Pain, Mild (1-3) Last Admin: 09/04/17 22:28 Dose: 650 mg Acetaminophen/Hydrocodone Bitart ([place]) 5 mg PO Q6H PRN PRN Reason: Cough Last Admin: 09/05/17 19:21 Dose: 5 mg Albuterol (Proventil) 2.5 mg IH Q4HRT PRN PRN Reason: Shortness Of Breath Albuterol/Ipratropium (Duoneb *Not For Prn Use*) 1 ampul IH Q6HRT [facility] Last Admin: 09/05/17 14:31 Dose: 1 ampul Amlodipine Besylate (Norvasc) 10 mg PO QDAY [facility] Last Admin: 09/05/17 10:41 Dose: 10 mg Atenolol (Tenormin) 100 mg PO BID [facility] Last Admin: 09/05/17 10:41 Dose: 100 mg Cyproheptadine HCl (Periactin) 4 mg PO BID [facility] Last Admin: 09/05/17 10:43 Dose: 4 mg Dextrose (D50w (25gm) Syringe) 50 ml IV PRN PRN PRN Reason: Hypoglycemia Doxazosin Mesylate (Cardura) 2 mg PO BID [facility] Last Admin: 09/05/17 10:42 Dose: 2 mg Piperacillin Sod/Tazobactam Sod (Zosyn/Ns 4.5gm/100ml) 4.5 gm in 100 mls @ 200 mls/hr IV Q8H [facility] Last Admin: 09/05/17 18:00 Dose: 200 mls/hr Heparin Sodium/Sodium Chloride (Heparin/ 0.45% Nacl-25,000 Unit/500 Ml) 25,000 unit in 500 mls @ 26 mls/hr IV TITR ALEC; 1,300 UNITS/HR PRN Reason: Protocol Last Admin: 09/05/17 10:39 Dose: 1,900 units/hr, 38 mls/hr Vancomycin HCl 500 mg/ Sodium (Chloride) 100 mls @ 66.667 mls/hr IV Q12H [facility] Last Admin: 09/05/17 12:00 Dose: 66.667 mls/hr Fat Emulsion Intravenous (Intralipid 20%) 250 mls @ 21 mls/hr IV DAILY@1999 [facility] Stop: 09/06/17 08:00 Amino Acids/Electrolytes/Dextrose (Tpn Adult) 2,016 mls @ 84 mls/hr IV DAILY@ 1999 [facility] PRN Reason: Protocol Stop: 09/06/17 19:59 Insulin Aspart (Novolog) 0 units SUB-Q ACHS [facility] PRN Reason: Protocol Last Admin: 09/05/17 12:19 Dose: 3 units Insulin Detemir (Levemir) 20 units SUB-Q QHS [facility] Last Admin: 08/30/17 22:35 Dose: 20 units Lisinopril (Zestril) 20 mg PO QDAY [facility] Last Admin: 09/05/17 10:41 Dose: 20 mg Metformin HCl (Glucophage) 500 mg PO BIDDIAB [facility] Last Admin: 09/05/17 08:42 Dose: 500 mg Oxycodone HCl (Roxicodone) 5 mg PO Q4HR PRN PRN Reason: Pain Last Admin: 09/04/17 22:27 Dose: 5 mg Review of Systems Constitutional: weakness, lethargy Cardiovascular: shortness of breath Respiratory: cough Exam - Constitutional Vitals: Temp Pulse Resp BP Pulse Ox 98.7 F 80 20 153/72 96 09/05/17 16:00 09/05/17 16:00 09/05/17 16:00 09/05/17 16:00 09/05/17 16:00 General appearance: Present: severe distress - EENT Eyes: Present: PERRL ENT: hearing intact, clear oral mucosa - Neck Neck: Present: supple, normal ROM - Respiratory Respiratory: bilateral: diminished, wheezing - Cardiovascular Heart Sounds: Present: S1 & S2. Absent: rub, click - Extremities Extremities: pulses symmetrical Extremity abnormal: edema Peripheral Pulses: within normal limits - Abdominal General gastrointestinal: Present: tender, normal bowel sounds, mass Localized gastrointestinal: tender: suprapubic Male genitourinary: Present: deferred - Rectal Rectal Exam: deferred - Integumentary Integumentary: Present: clear, warm, dry - Psychiatric Psychiatric: appropriate mood/affect Results - Labs CBC & Chem 7: 09/05/17 08:00 09/05/17 08:00 Labs: Abnormal lab results 09/04/17 09/05/17 09/05/17 Range/Units 22:33 08:00 08:00 WBC 12.5 H (4.5-11.0) K/mm3 RBC 2.81 L (3.65-5.03) M/mm3 Hgb 6.9 L (11.8-15.2) gm/dl Hct 22.6 L (35.5-45.6) % MCV 81 L (84-94) fl MCH 24 L (28-32) pg MCHC 30 L (32-34) % RDW 22.4 H (13.2-15.2) % [place] % (Auto) 8.0 H (0.0-7.3) % [place] # 1.0 H (0.0-0.8) K/mm3 Chloride 109.0 H (98-107) mmol/L Carbon Dioxide 20 L (22-30) mmol/L BUN 27 H (9-20) mg/dL Glucose 219 H (75-100) mg/dL POC Glucose 217 H (70-105) Alkaline Phosphatase 169 H (35-129) units/L Albumin 2.4 L (3.9-5) g/dL 09/05/17 09/05/17 Range/Units 11:58 15:52 WBC (4.5-11.0) K/mm3 RBC (3.65-5.03) M/mm3 Hgb (11.8-15.2) gm/dl Hct (35.5-45.6) % MCV (84-94) fl MCH (28-32) pg MCHC (32-34) % RDW (13.2-15.2) % [place] % (Auto) (0.0-7.3) % [place] # (0.0-0.8) K/mm3 Chloride (98-107) mmol/L Carbon Dioxide (22-30) mmol/L BUN (9-20) mg/dL Glucose (75-100) mg/dL POC Glucose 251 H 200 H (70-105) Alkaline Phosphatase (35-129) units/L Albumin (3.9-5) g/dL Assessment and Plan - Patient Problems (1) Deep vein blood clot of left lower extremity Current Visit: Yes Status: Acute Plan to address problem: see below. (2) Colon cancer metastasized to multiple sites Current Visit: Yes Status: Ruled-out Plan to address problem: see notes. (3) Lung mass Current Visit: Yes Status: Acute Plan to address problem: see notes. (4) Pulmonary embolism Current Visit: Yes Status: Acute Plan to address problem: anticoags. see notes. (5) DVT (deep venous thrombosis) Current Visit: Yes Status: Acute Qualifiers: Laterality: left Plan to address problem: anti coags. (6) Anemia Current Visit: Yes Status: Acute Plan to address problem: Multi etiology. will need replacement transfusion, and do stool guiac.
[2017-09-05] MEDS: ROXICODONE PO PRN (23:44)
[2017-09-06 00:30] LABS: Basophils % (Auto) 0.6 % (0.0-1.8); Eosinophils % (Auto) 2.7 % (0.0-4.3); Hematocrit 22.2 % (35.5-45.6); Mean Corpuscular HGB Conc 31 % (32-34); Mean Corpuscular Volume 81 fl (84-94); Platelet Count 377 K/mm3 (140-440); Red Blood Count 2.75 M/mm3 (3.65-5.03); White Blood Count 10.8 K/mm3 (4.5-11.0)
[2017-09-06 00:31] LABS: Mean Corpuscular Hemoglobin 25 pg (28-32); Red Cell Distribution Width 23.1 % (13.2-15.2)
[2017-09-06] MEDS: ZOSYN/NS 4.5GM/100ML 4.5 GM/100 ML VIAL IV SCH ×3 (01:51→17:11)
[2017-09-06] MEDS: DUONEB *Not for PRN Use IH SCH ×4 (02:20→20:52)
--- NOTE | 2017-09-06 09:06 | Event Note ---
Date: 09/06/17 I reviewed the patient's CT recently. Based on the findings, it is unlikely that the patient would benefit from a drainage catheter in a small ill defined collection in the anterior abdominal wall. Should there be concern that this is an etiology for infection, a surgery consult may be of benefit.
--- NOTE | 2017-09-06 09:18 | Progress Note ---
Assessment and Plan - Patient Problems (1) Colon cancer metastasized to multiple sites Current Visit: Yes Status: Ruled-out Plan to address problem: Recurrence of disease, with possible new mass in the lung. CT scan reviewed with radiologist this morning I suggested repeat CT of the chest with thin slices without evaluates the newly identified mass in the lung (2) Altered mental status Current Visit: Yes Status: Resolved Qualifiers: Altered mental status type: transient alteration of awareness Qualified Code(s): R40.4 - Transient alteration of awareness Plan to address problem: Urgent with intermittent disorientation, we will review current medication (3) Fever Current Visit: Yes Status: Acute Qualifiers: Fever type: unspecified Qualified Code(s): R50.9 - Fever, unspecified Plan to address problem: Is gradually subsiding I White cell also coming down. We'll continue IV antibiotics vancomycin and Zosyn per ID recommendations I'll continue to monitor for any other source of infection. (4) Hypertension Current Visit: Yes Status: Acute Qualifiers: Hypertension type: essential hypertension Qualified Code(s): I10 - Essential (primary) hypertension Plan to address problem: Blood pressures is fairly stable on current medication would maintain the same at this time (5) Type 2 diabetes mellitus without complications Current Visit: Yes Status: Acute Plan to address problem: Patient reported with Hypoglycemia this morning ,will hold long acting Insulin Levermir and continue sliding scale insulin for now (6) Deep vein blood clot of left lower extremity Current Visit: Yes Status: Acute Plan to address problem: Patient on IV heparin for both DVT and newly diagnosed pulmonary embolus continuing to grow patient for now with heparin IV patient also to have Avinash filter placement already scheduled Subjective Date of service: 09/06/17 Principal diagnosis: fever from Pneumonia, ant abdomninal; vs abcess, acute DVT and PE Interval history: Patient seen and examined chart reviewed, patient followed at bedside. Most the staff reported patient was confused during the night/agitated and pulled out PICC line. No fever reported patient will rule out at this time denied any chest pain or shortness of breath, denied pain Objective - Exam Narrative Exam: GENERAL: Awake responding appropriately to questions. HEENT: Moderate to pills but no jaundiced cyanosis [Mucous membrane is moist, pharynx is clear, no exudates or hemorrhage. Dentition is normal.] NECK: [Supple. Neck showed good range of motion. There is no adenopathy noted. No jugular venous distention and no thyromegaly.] [Neck auscultation showed no carotid bruit.] CHEST/LUNGS: Poor Air exchange bilaterally, expiratory wheezes scattered bilaterally HEART/CARDIOVASCULAR: Tachycardia. Sacral medicines only there is no S3 or S4 gallop ABDOMEN: [Abdomen is protuberant, diffusely tender to deep palpation, active bowel sounds. Surgical site well-healed, diffusely poorly palpated mass in the left lower quadrant SKIN: [There is no rash. There is no edema. There is no diaphoresis.] NEURO: [The patient is awake, alert, and oriented. The patient is cooperative. The patient has no focal neurologic deficits. Cranial nerves 2-12 grossly normal, power is 5/5 in all the extremities tested. The patient has normal speech and gait.] MUSCULOSKELETAL: [There is no tenderness or deformity. There is no limitation range of motion. There is no evidence of acute injury.] EXTREMITIES: Left lower extremity nonpitting edema up to the knee - Constitutional Vitals: Vital Signs - 12hr 09/05/17 09/05/17 09/05/17 21:20 21:35 22:00 Temperature Pulse Rate Pulse Rate [ 91 H 93 H Anterior Bilateral Throughout] Respiratory 22 Rate Respiratory 22 18 Rate [Anterior Bilateral Throughout] Blood Pressure O2 Sat by Pulse 97 Oximetry 09/06/17 09/06/17 09/06/17 02:21 02:43 04:32 Temperature 99.3 F Pulse Rate 95 H Pulse Rate [ 96 H 97 H Anterior Bilateral Throughout] Respiratory 18 Rate Respiratory 20 18 Rate [Anterior Bilateral Throughout] Blood Pressure 168/78 O2 Sat by Pulse 91 Oximetry 09/06/17 07:47 Temperature 99.7 F H Pulse Rate 91 H Pulse Rate [ Anterior Bilateral Throughout] Respiratory 20 Rate Respiratory Rate [Anterior Bilateral Throughout] Blood Pressure 150/74 O2 Sat by Pulse 95 Oximetry - Labs CBC & Chem 7: 09/05/17 23:55 09/05/17 08:00 Labs: Abnormal lab results 09/05/17 09/05/17 09/05/17 Range/Units 11:58 15:52 22:35 RBC (3.65-5.03) M/mm3 Hgb (11.8-15.2) gm/dl Hct (35.5-45.6) % MCV (84-94) fl MCH (28-32) pg MCHC (32-34) % RDW (13.2-15.2) % POC Glucose 251 H 200 H 259 H (70-105) 09/05/17 09/06/17 Range/Units 23:55 08:19 RBC 2.75 L (3.65-5.03) M/mm3 Hgb 7.0 L (11.8-15.2) gm/dl Hct 22.2 L (35.5-45.6) % MCV 81 L (84-94) fl MCH 25 L (28-32) pg MCHC 31 L (32-34) % RDW 23.1 H (13.2-15.2) % POC Glucose 210 H (70-105)
[2017-09-06] MEDS: PULMICORT IH SCH ×2 (09:29→20:52)
[2017-09-06 09:51] LABS: Eosinophils % (Auto) 0.6 % (0.0-4.3); Hematocrit 23.5 % (35.5-45.6); Hemoglobin 7.1 gm/dl (11.8-15.2); Mean Corpuscular HGB Conc 30 % (32-34); Mean Corpuscular Volume 80 fl (84-94); Platelet Count 381 K/mm3 (140-440); Red Blood Count 2.93 M/mm3 (3.65-5.03)
[2017-09-06 09:53] LABS: Mean Corpuscular Hemoglobin 24 pg (28-32); Red Cell Distribution Width 22.4 % (13.2-15.2)
--- NOTE | 2017-09-06 12:29 | Progress Note ---
Assessment and Plan Assessment: 1) Sepsis: fever better. Etiology most likely - multifactorial PE +/- abdominal wall infection ? abscess ? fistula ? +/- presumed pneumonia 2) Abdominal wall infection ? abscess ? fistula . CRP=28. IR reviewed CT and no need for drainage 3) Presumed bilateral pneumonia with lung mass ? post obs pneumonia 4) DVTs 5) Colon cancer s/p colon resection, small bowel bypass, fistula repair, colostomy reversal in several stages most recently Jul 2017. 6) DM 7) PE-right main PA embolus on heparin 8) Anemia-severe Plan: -continue zosyn day 11 of 14 and vancomycin day 5 of 7- stop zosyn soon Annie Stanford MD Infectious Diseases Specialist [facility] M [phone] Subjective Date of service: 09/06/17 Principal diagnosis: fever from Pneumonia, ant abdomninal; vs abcess, acute DVT and PE Interval history: Pt feels ok still mild SOB, fever resolved Microbiology: Blood cultures: 08/27 neg 08/31 neg 09/01 ngtd Urine cultures: Current Antimicrobials: Zosyn 08/27 Vancomycin 08/30 Previous Antimicrobials: Objective - Exam Narrative Exam: General appearance: Alert in NAD, mild resp distress Eyes: anicteric sclerae, moist conjunctivae; no lid-lag; PERRLA HENT: Atraumatic; oropharynx clear Neck: Trachea midline; supple, no thyromegaly or lymphadenopathy Lungs: kiko wheezing / rhonchi CV: RRR Abdomen: Soft, +midline old scar with marked induration and tenderness Extremities: marked left leg edema Skin: Normal temperature, turgor and texture; no rash, ulcers or subcutaneous nodules Psych: Appropriate affect, alert and oriented to person, place and time. Neuro: alert and oriented x 3. Moving all extermities Lines: - Constitutional Vitals: Vital Signs Temp Pulse Resp BP Pulse Ox 99.7 F H 91 H 20 150/74 95 09/06/17 07:47 09/06/17 07:47 09/06/17 07:47 09/06/17 07:47 09/06/17 07:47 Temperature -Last 24 Hours Temperature 99.7 F Temperature 99.3 F Temperature 99.7 F Temperature 98.7 F Temperature 98.7 F - Labs CBC & Chem 7: 09/06/17 09:32 09/05/17 08:00 Labs: Abnormal lab results 09/05/17 09/05/17 09/05/17 Range/Units 15:52 22:35 23:55 WBC (4.5-11.0) K/mm3 RBC 2.75 L (3.65-5.03) M/mm3 Hgb 7.0 L (11.8-15.2) gm/dl Hct 22.2 L (35.5-45.6) % MCV 81 L (84-94) fl MCH 25 L (28-32) pg MCHC 31 L (32-34) % RDW 23.1 H (13.2-15.2) % Seg Neutrophils # (1.8-7.7) K/mm3 POC Glucose 200 H 259 H (70-105) 09/06/17 09/06/17 Range/Units 08:19 09:32 WBC 12.0 H (4.5-11.0) K/mm3 RBC 2.93 L (3.65-5.03) M/mm3 Hgb 7.1 L (11.8-15.2) gm/dl Hct 23.5 L (35.5-45.6) % MCV 80 L (84-94) fl MCH 24 L (28-32) pg MCHC 30 L (32-34) % RDW 22.4 H (13.2-15.2) % Seg Neutrophils # 8.1 H (1.8-7.7) K/mm3 POC Glucose 210 H (70-105)
[2017-09-06] MEDS ORDERED: NACL ONE (12:39)
--- NOTE | 2017-09-06 13:20 | XRay Report ---
AP CHEST: 09/06/17 11:09 CLINICAL: PICC line insertion. FINDINGS: Since 09/01/17, a right PICC line has been placed and the left PICC line has been removed. Right PICC line tip is in the lower SVC at the cavoatrial junction. Stable cardiomegaly and central vascular congestion. No pneumothorax. IMPRESSION: Satisfactory placement of a right PICC line.
--- NOTE | 2017-09-06 13:33 | Cat Scan Report ---
CT angiography of the chest including 3-D reconstructed images. History: Followup study. Findings: Comparison is made to the prior study on September 01. Multiple pulmonary emboli are technically better demonstrated on today's study in the right lower lobe. Overall, there is been no significant change in the thrombus burden. Soft tissue mass in the right hilum is again noted without interval change. There is subsegmental right lower lobe atelectasis. Mild increase in right pleural effusion is present. Persistent subsegmental left lower lobe atelectasis is present. No pulmonary nodules or masses are seen. Impression: 1. Multiple emboli in the right lower lobe with no significant interval change. Bibasilar atelectasis. Mild increase in right pleural effusion.
[2017-09-06] MEDS: NOVOLOG SUB-Q SCH ×3 (13:50→22:00)
[2017-09-06] MEDS: GLUCOPHAGE PO SCH ×2 (13:51→17:30)
[2017-09-06] MEDS: NORVASC PO SCH (14:36)
[2017-09-06] MEDS: ZESTRIL PO SCH (14:36)
[2017-09-06] MEDS: CARDURA PO SCH ×2 (14:36→21:50)
[2017-09-06] MEDS: TENORMIN PO SCH ×2 (14:37→21:49)
[2017-09-06] MEDS: PERIACTIN PO SCH ×2 (14:38→21:20)
[2017-09-06] MEDS: TYLENOL PO PRN (14:45)
[2017-09-06] MEDS: VANCOMYCIN VIAL 500 MG in NACL 0.9% 100 ML IV SCH (16:01)
[2017-09-06] MEDS ORDERED: TPN ADULT 2,016 ML IV SCH (20:00)
--- NOTE | 2017-09-06 20:43 | Progress Note ---
Assessment and Plan - Patient Problems (1) Deep vein blood clot of left lower extremity Current Visit: Yes Status: Acute Plan to address problem: see below. (2) Colon cancer metastasized to multiple sites Current Visit: Yes Status: Ruled-out Plan to address problem: see notes. (3) Lung mass Current Visit: Yes Status: Acute Plan to address problem: see notes. (4) Pulmonary embolism Current Visit: Yes Status: Acute Plan to address problem: anticoags. see notes. (5) DVT (deep venous thrombosis) Current Visit: Yes Status: Acute Qualifiers: Laterality: left Plan to address problem: anti coags. (6) Anemia Current Visit: Yes Status: Acute Plan to address problem: Multi etiology. will need replacement transfusion, and do stool guiac. Subjective Date of service: 09/06/17 Principal diagnosis: fever from Pneumonia, ant abdomninal; vs abcess, acute DVT and PE Interval history: Patient seen/examined, record reviewed, case d/w his daughter at the bed side.No procedure was done today. I have d/w DR BOYD today, and he will see patient .He is confused today, with some lethargy. Objective - Constitutional Vitals: Vital Signs - 12hr 09/06/17 09/06/17 09/06/17 09:30 09:35 09:40 Temperature Pulse Rate Pulse Rate [ 34 L 76 Anterior Bilateral Throughout] Respiratory Rate Respiratory 76 H 30 H Rate [Anterior Bilateral Throughout] Blood Pressure O2 Sat by Pulse 97 Oximetry 09/06/17 09/06/17 09/06/17 12:13 14:10 14:16 Temperature 100.0 F H Pulse Rate 89 Pulse Rate [ 78 70 Anterior Bilateral Throughout] Respiratory 20 Rate Respiratory 36 H 22 Rate [Anterior Bilateral Throughout] Blood Pressure 162/86 O2 Sat by Pulse 99 Oximetry 09/06/17 09/06/17 09/06/17 14:36 14:37 15:25 Temperature 99.1 F Pulse Rate 89 92 H Pulse Rate [ Anterior Bilateral Throughout] Respiratory 20 Rate Respiratory Rate [Anterior Bilateral Throughout] Blood Pressure 162/86 162/86 139/63 O2 Sat by Pulse 100 Oximetry General appearance: Present: mild distress - EENT Eyes: PERRL, EOM intact ENT: hearing intact, clear oral mucosa Ears: bilateral: normal - Neck Neck: supple, normal ROM - Respiratory Respiratory: bilateral: diminished - Cardiovascular Rhythm: regular Heart Sounds: Present: S1 & S2. Absent: gallop, rub Extremities: pulses intact, No edema, normal color, Full ROM - Gastrointestinal General gastrointestinal: Present: soft, non-tender, non-distended, normal bowel sounds Rectal Exam: deferred - Genitourinary Male genitourinary: deferred - Integumentary Integumentary: clear, warm, dry - Musculoskeletal Musculoskeletal: generalized weakness - Neurologic Neurologic: moves all extremities - Psychiatric Psychiatric: appropriate mood/affect - Labs CBC & Chem 7: 09/06/17 09:32 09/05/17 08:00 Labs: Abnormal lab results 09/05/17 09/05/17 09/06/17 Range/Units 22:35 23:55 08:19 WBC (4.5-11.0) K/mm3 RBC 2.75 L (3.65-5.03) M/mm3 Hgb 7.0 L (11.8-15.2) gm/dl Hct 22.2 L (35.5-45.6) % MCV 81 L (84-94) fl MCH 25 L (28-32) pg MCHC 31 L (32-34) % RDW 23.1 H (13.2-15.2) % Seg Neutrophils # (1.8-7.7) K/mm3 POC Glucose 259 H 210 H (70-105) 09/06/17 09/06/17 09/06/17 Range/Units 09:32 12:08 16:15 WBC 12.0 H (4.5-11.0) K/mm3 RBC 2.93 L (3.65-5.03) M/mm3 Hgb 7.1 L (11.8-15.2) gm/dl Hct 23.5 L (35.5-45.6) % MCV 80 L (84-94) fl MCH 24 L (28-32) pg MCHC 30 L (32-34) % RDW 22.4 H (13.2-15.2) % Seg Neutrophils # 8.1 H (1.8-7.7) K/mm3 POC Glucose 179 H 157 H (70-105)
[2017-09-06] MEDS: HEPARIN/ 0.45% NACL-25,000 UNIT/500 ML 25,000 UNIT/500 ML BAG IV SCH (21:14)
[2017-09-06 21:43] LABS: Basophils % (Auto) 0.4 % (0.0-1.8); Eosinophils % (Auto) 2.5 % (0.0-4.3); Hematocrit 22.9 % (35.5-45.6); Hemoglobin 7.2 gm/dl (11.8-15.2); Mean Corpuscular HGB Conc 31 % (32-34); Mean Corpuscular Volume 81 fl (84-94); Platelet Count 379 K/mm3 (140-440); Red Blood Count 2.83 M/mm3 (3.65-5.03); White Blood Count 9.8 K/mm3 (4.5-11.0)
[2017-09-06 21:46] LABS: Mean Corpuscular Hemoglobin 25 pg (28-32); Red Cell Distribution Width 22.4 % (13.2-15.2)
[2017-09-07] MEDS: VANCOMYCIN VIAL 500 MG in NACL 0.9% 100 ML IV SCH (00:39)
[2017-09-07] MEDS: ZOSYN/NS 4.5GM/100ML 4.5 GM/100 ML VIAL IV SCH (00:39)
[2017-09-07] MEDS: DUONEB *Not for PRN Use IH SCH ×4 (01:47→20:10)
[2017-09-07 08:11] LABS: Basophils % (Auto) 0.4 % (0.0-1.8); Eosinophils % (Auto) 3.2 % (0.0-4.3); Hematocrit 22.4 % (35.5-45.6); Hemoglobin 7.2 gm/dl (11.8-15.2); Mean Corpuscular HGB Conc 32 % (32-34); Mean Corpuscular Volume 80 fl (84-94); Platelet Count 369 K/mm3 (140-440); Red Blood Count 2.81 M/mm3 (3.65-5.03); White Blood Count 10.3 K/mm3 (4.5-11.0)
[2017-09-07 08:12] LABS: Mean Corpuscular Hemoglobin 26 pg (28-32)
[2017-09-07 08:27] LABS: Alanine Aminotransferase 31 units/L (7-56); Albumin 2.6 g/dL (3.9-5); Albumin/Globulin Ratio 0.5 %; Alkaline Phosphatase 141 units/L (35-129); Anion Gap 18 mmol/L; BUN/Creatinine Ratio 22; Blood Urea Nitrogen 20 mg/dL (9-20); Calcium 9.3 mg/dL (8.4-10.2); Carbon Dioxide 21 mmol/L (22-30); Chloride 109.1 mmol/L (98-107); Glucose 183 mg/dL (75-100); Sodium 143 mmol/L (137-145); Total Protein 7.6 g/dL (6.3-8.2)
[2017-09-07 08:30] LABS: Alanine Aminotransferase 32 units/L (7-56); Albumin 2.5 g/dL (3.9-5); Albumin/Globulin Ratio 0.5 %; Alkaline Phosphatase 143 units/L (35-129); Anion Gap 18 mmol/L; BUN/Creatinine Ratio 22; Blood Urea Nitrogen 20 mg/dL (9-20); Calcium 9.4 mg/dL (8.4-10.2); Carbon Dioxide 21 mmol/L (22-30); Glucose 186 mg/dL (75-100); Potassium 4.9 mmol/L (3.6-5.0); Sodium 142 mmol/L (137-145); Total Protein 7.8 g/dL (6.3-8.2)
[2017-09-07] MEDS: PULMICORT IH SCH ×2 (08:38→20:09)
--- NOTE | 2017-09-07 08:57 | Progress Note ---
Assessment and Plan - Patient Problems (1) Colon cancer metastasized to multiple sites Current Visit: Yes Status: Ruled-out Plan to address problem: Recurrence of disease, with possible new mass in the lung. CT scan reviewed with radiologist this morning I suggested repeat CT of the chest with thin slices without evaluates the newly identified mass in the lung (2) Altered mental status Current Visit: Yes Status: Resolved Qualifiers: Altered mental status type: transient alteration of awareness Qualified Code(s): R40.4 - Transient alteration of awareness Plan to address problem: Urgent with intermittent disorientation, we will review current medication (3) Fever Current Visit: Yes Status: Acute Qualifiers: Fever type: unspecified Qualified Code(s): R50.9 - Fever, unspecified Plan to address problem: Is gradually subsiding I White cell also coming down. We'll continue IV antibiotics vancomycin and Zosyn per ID recommendations I'll continue to monitor for any other source of infection. (4) Hypertension Current Visit: Yes Status: Acute Qualifiers: Hypertension type: essential hypertension Qualified Code(s): I10 - Essential (primary) hypertension Plan to address problem: Blood pressures is fairly stable on current medication would maintain the same at this time (5) Type 2 diabetes mellitus without complications Current Visit: Yes Status: Acute Plan to address problem: Patient reported with Hypoglycemia this morning ,will hold long acting Insulin Levermir and continue sliding scale insulin for now (6) Deep vein blood clot of left lower extremity Current Visit: Yes Status: Acute Plan to address problem: Patient on IV heparin for both DVT and newly diagnosed pulmonary embolus continuing to grow patient for now with heparin IV patient also to have Gill filter placement already scheduled Subjective Date of service: 09/07/17 Principal diagnosis: fever from Pneumonia, ant abdomninal; vs abcess, acute DVT and PE Interval history: Complaining of cough troublesome .Shortness of breath still but not worse ,no fever reported thias morning Objective - Exam Narrative Exam: GENERAL: Awake responding appropriately to questions. HEENT: Moderate to pills but no jaundiced cyanosis [Mucous membrane is moist, pharynx is clear, no exudates or hemorrhage. Dentition is normal.] NECK: [Supple. Neck showed good range of motion. There is no adenopathy noted. No jugular venous distention and no thyromegaly.] [Neck auscultation showed no carotid bruit.] CHEST/LUNGS: Poor Air exchange bilaterally, expiratory wheezes scattered bilaterally HEART/CARDIOVASCULAR: Tachycardia. Sacral medicines only there is no S3 or S4 gallop ABDOMEN: [Abdomen is protuberant, diffusely tender to deep palpation, active bowel sounds. Surgical site well-healed, diffusely poorly palpated mass in the left lower quadrant SKIN: [There is no rash. There is no edema. There is no diaphoresis.] NEURO: [The patient is awake, alert, and oriented. The patient is cooperative. The patient has no focal neurologic deficits. Cranial nerves 2-12 grossly normal, power is 5/5 in all the extremities tested. The patient has normal speech and gait.] MUSCULOSKELETAL: [There is no tenderness or deformity. There is no limitation range of motion. There is no evidence of acute injury.] EXTREMITIES: Left lower extremity nonpitting edema up to the knee - Constitutional Vitals: Vital Signs - 12hr 09/06/17 09/06/17 09/07/17 21:02 22:00 01:47 Pulse Rate [ 80 85 Anterior Bilateral Throughout] Respiratory 20 Rate Respiratory 18 20 Rate [Anterior Bilateral Throughout] 09/07/17 01:55 Pulse Rate [ 88 Anterior Bilateral Throughout] Respiratory Rate Respiratory 20 Rate [Anterior Bilateral Throughout] - Labs CBC & Chem 7: 09/07/17 07:40 09/07/17 07:40 Labs: Abnormal lab results 09/06/17 09/06/17 09/06/17 Range/Units 09:32 12:08 16:15 WBC 12.0 H (4.5-11.0) K/mm3 RBC 2.93 L (3.65-5.03) M/mm3 Hgb 7.1 L (11.8-15.2) gm/dl Hct 23.5 L (35.5-45.6) % MCV 80 L (84-94) fl MCH 24 L (28-32) pg MCHC 30 L (32-34) % RDW 22.4 H (13.2-15.2) % [place] % (Auto) (0.0-7.3) % Seg Neutrophils % (40.0-70.0) % Seg Neutrophils # 8.1 H (1.8-7.7) K/mm3 Chloride (98-107) mmol/L Carbon Dioxide (22-30) mmol/L Glucose (75-100) mg/dL POC Glucose 179 H 157 H (70-105) Alkaline Phosphatase (35-129) units/L Albumin (3.9-5) g/dL 09/06/17 09/06/17 09/07/17 Range/Units 21:17 23:17 07:40 WBC (4.5-11.0) K/mm3 RBC 2.83 L 2.81 L (3.65-5.03) M/mm3 Hgb 7.2 L 7.2 L (11.8-15.2) gm/dl Hct 22.9 L 22.4 L (35.5-45.6) % MCV 81 L 80 L (84-94) fl MCH 25 L 26 L (28-32) pg MCHC 31 L (32-34) % RDW 22.4 H 23.0 H (13.2-15.2) % [place] % (Auto) 8.1 H (0.0-7.3) % Seg Neutrophils % 73.7 H (40.0-70.0) % Seg Neutrophils # (1.8-7.7) K/mm3 Chloride (98-107) mmol/L Carbon Dioxide (22-30) mmol/L Glucose (75-100) mg/dL POC Glucose 195 H (70-105) Alkaline Phosphatase (35-129) units/L Albumin (3.9-5) g/dL 09/07/17 09/07/17 Range/Units 07:40 07:40 WBC (4.5-11.0) K/mm3 RBC (3.65-5.03) M/mm3 Hgb (11.8-15.2) gm/dl Hct (35.5-45.6) % MCV (84-94) fl MCH (28-32) pg MCHC (32-34) % RDW (13.2-15.2) % [place] % (Auto) (0.0-7.3) % Seg Neutrophils % (40.0-70.0) % Seg Neutrophils # (1.8-7.7) K/mm3 Chloride 108.0 H 109.1 H (98-107) mmol/L Carbon Dioxide 21 L 21 L (22-30) mmol/L Glucose 186 H 183 H (75-100) mg/dL POC Glucose (70-105) Alkaline Phosphatase 143 H 141 H (35-129) units/L Albumin 2.5 L 2.6 L (3.9-5) g/dL
[2017-09-07] MEDS ORDERED: ATIVAN IV PRN (09:00)
[2017-09-07] MEDS: GLUCOPHAGE PO SCH ×2 (10:00→21:34)
[2017-09-07] MEDS: TESSALON PERLES PO SCH ×2 (10:16→21:34)
[2017-09-07] MEDS: NOVOLOG SUB-Q SCH ×4 (11:21→21:34)
[2017-09-07] MEDS: TENORMIN PO SCH (11:29)
[2017-09-07] MEDS: ZESTRIL PO SCH (11:29)
[2017-09-07] MEDS: PERIACTIN PO SCH (11:30)
[2017-09-07] MEDS: NORVASC PO SCH (11:30)
[2017-09-07] MEDS: CARDURA PO SCH (11:31)
[2017-09-07] MEDS: HEPARIN/ 0.45% NACL-25,000 UNIT/500 ML 25,000 UNIT/500 ML BAG IV SCH (12:02)
--- NOTE | 2017-09-07 12:28 | Progress Note ---
Assessment and Plan Assessment: 1) Sepsis: resolved. Etiology most likely - multifactorial PE +/- abdominal wall infection ? abscess ? fistula ? +/- presumed pneumonia 2) Abdominal wall infection ? abscess ? fistula . CRP=28. IR reviewed CT and no need for drainage 3) Presumed bilateral pneumonia with lung mass ? post obs pneumonia 4) DVTs 5) Colon cancer s/p colon resection, small bowel bypass, fistula repair, colostomy reversal in several stages most recently Jul 2017. 6) DM 7) PE-right main PA embolus on heparin 8) Anemia-severe Plan: -stop zosyn and vancomycin - s/p 12 days - monitor off abx I am signing off Annie Stanford MD Infectious Diseases Specialist [facility] [phone] Subjective Date of service: 09/07/17 Principal diagnosis: fever from Pneumonia, ant abdomninal; vs abcess, acute DVT and PE Interval history: Pt feels ok still mild SOB, fever resolved Microbiology: Blood cultures: 08/27 neg 08/31 neg 09/01 ngtd Urine cultures: Current Antimicrobials: Zosyn 08/27 Vancomycin 08/30 Previous Antimicrobials: Objective - Exam Narrative Exam: General appearance: Alert in NAD, mild resp distress Eyes: anicteric sclerae, moist conjunctivae; no lid-lag; PERRLA HENT: Atraumatic; oropharynx clear Neck: Trachea midline; supple, no thyromegaly or lymphadenopathy Lungs: kiko wheezing / rhonchi CV: RRR Abdomen: Soft, +midline old scar with marked induration and tenderness Extremities: marked left leg edema Skin: Normal temperature, turgor and texture; no rash, ulcers or subcutaneous nodules Psych: Appropriate affect, alert and oriented to person, place and time. Neuro: alert and oriented x 3. Moving all extermities Lines: - Constitutional Vitals: Vital Signs Temp Pulse Resp BP Pulse Ox 98.9 F 84 22 166/85 98 09/07/17 07:55 09/07/17 08:43 09/07/17 08:43 09/07/17 07:55 09/07/17 08:35 Temperature -Last 24 Hours Temperature 98.9 F Temperature 98.6 F Temperature 98.6 F Temperature 99.1 F - Labs CBC & Chem 7: 09/07/17 07:40 09/07/17 07:40 Labs: Abnormal lab results 09/06/17 09/06/17 09/06/17 Range/Units 12:08 16:15 21:17 RBC 2.83 L (3.65-5.03) M/mm3 Hgb 7.2 L (11.8-15.2) gm/dl Hct 22.9 L (35.5-45.6) % MCV 81 L (84-94) fl MCH 25 L (28-32) pg MCHC 31 L (32-34) % RDW 22.4 H (13.2-15.2) % [place] % (Auto) 8.1 H (0.0-7.3) % Seg Neutrophils % (40.0-70.0) % Chloride (98-107) mmol/L Carbon Dioxide (22-30) mmol/L Glucose (75-100) mg/dL POC Glucose 179 H 157 H (70-105) Alkaline Phosphatase (35-129) units/L Albumin (3.9-5) g/dL 09/06/17 09/07/17 09/07/17 Range/Units 23:17 07:40 07:40 RBC 2.81 L (3.65-5.03) M/mm3 Hgb 7.2 L (11.8-15.2) gm/dl Hct 22.4 L (35.5-45.6) % MCV 80 L (84-94) fl MCH 26 L (28-32) pg MCHC (32-34) % RDW 23.0 H (13.2-15.2) % [place] % (Auto) (0.0-7.3) % Seg Neutrophils % 73.7 H (40.0-70.0) % Chloride 108.0 H (98-107) mmol/L Carbon Dioxide 21 L (22-30) mmol/L Glucose 186 H (75-100) mg/dL POC Glucose 195 H (70-105) Alkaline Phosphatase 143 H (35-129) units/L Albumin 2.5 L (3.9-5) g/dL 09/07/17 09/07/17 Range/Units 07:40 08:40 RBC (3.65-5.03) M/mm3 Hgb (11.8-15.2) gm/dl Hct (35.5-45.6) % MCV (84-94) fl MCH (28-32) pg MCHC (32-34) % RDW (13.2-15.2) % [place] % (Auto) (0.0-7.3) % Seg Neutrophils % (40.0-70.0) % Chloride 109.1 H (98-107) mmol/L Carbon Dioxide 21 L (22-30) mmol/L Glucose 183 H (75-100) mg/dL POC Glucose 218 H (70-105) Alkaline Phosphatase 141 H (35-129) units/L Albumin 2.6 L (3.9-5) g/dL
[2017-09-07] MEDS: ROXICODONE PO PRN (13:58)
[2017-09-07 15:18] LABS: ISTAT Base Excess 1; ISTAT HCO3 25.6; ISTAT PCO2 42.1 (35-45); ISTAT PH 7.392 (7.35-7.45); ISTAT PO2 68 (80-105); ISTAT SO2 93; ISTAT TCO2 27
[2017-09-07] MEDS ORDERED: INTRALIPID 20% 250 ML IV SCH (20:00)
[2017-09-07] MEDS ORDERED: TPN ADULT 2,016 ML IV SCH (20:00)
--- NOTE | 2017-09-07 21:15 | Progress Note ---
Assessment and Plan - Patient Problems (1) Deep vein blood clot of left lower extremity Current Visit: Yes Status: Acute Plan to address problem: see below. no new issues at this time. (2) Colon cancer metastasized to multiple sites Current Visit: Yes Status: Ruled-out Plan to address problem: see notes. eventually will get chemo/xrt. (3) Lung mass Current Visit: Yes Status: Acute Plan to address problem: see notes. (4) Pulmonary embolism Current Visit: Yes Status: Acute Plan to address problem: anticoags. see notes. (5) DVT (deep venous thrombosis) Current Visit: Yes Status: Acute Qualifiers: Laterality: left (6) Anemia Current Visit: Yes Status: Acute Plan to address problem: Multi etiology. will need replacement transfusion, and do stool guiac. Subjective Date of service: 09/07/17 Principal diagnosis: fever from Pneumonia, ant abdomninal; vs abcess, acute DVT and PE Interval history: Patient seen/examined, record reviewed, case d/w his daughter at the bed side.No procedure was done today. I have d/w DR BOYD today, and he will see patient .He is confused today, with some lethargy. Patient seen/examined, resting in bed, labs reviewed, notes reviewed. DR BOYD not available yet, so i am seeing patient today.No new issues at this time. Objective - Constitutional Vitals: Vital Signs - 12hr 09/07/17 09/07/17 09/07/17 15:15 20:07 20:24 Temperature 98.8 F 97.9 F Pulse Rate 87 Respiratory 18 20 20 Rate Blood Pressure 144/74 182/76 Blood Pressure [Right] O2 Sat by Pulse 95 Oximetry 09/07/17 09/07/17 20:25 20:46 Temperature 98.8 F Pulse Rate 87 66 Respiratory 20 Rate Blood Pressure Blood Pressure 147/65 [Right] O2 Sat by Pulse 97 98 Oximetry General appearance: Present: mild distress - EENT Eyes: PERRL, EOM intact ENT: hearing intact, clear oral mucosa Ears: bilateral: normal - Neck Neck: supple, normal ROM - Respiratory Respiratory: bilateral: diminished - Cardiovascular Rhythm: regular Heart Sounds: Present: S1 & S2. Absent: gallop, rub Extremities: pulses intact, No edema, normal color, Full ROM - Gastrointestinal General gastrointestinal: Present: soft, non-tender, non-distended, normal bowel sounds Rectal Exam: deferred - Genitourinary Male genitourinary: deferred - Integumentary Integumentary: clear, warm, dry - Musculoskeletal Musculoskeletal: 1, strength equal bilaterally - Neurologic Neurologic: moves all extremities - Psychiatric Psychiatric: appropriate mood/affect - Labs CBC & Chem 7: 09/07/17 07:40 09/07/17 07:40 Labs: Abnormal lab results 09/06/17 09/06/17 09/07/17 Range/Units 21:17 23:17 07:40 RBC 2.83 L 2.81 L (3.65-5.03) M/mm3 Hgb 7.2 L 7.2 L (11.8-15.2) gm/dl Hct 22.9 L 22.4 L (35.5-45.6) % MCV 81 L 80 L (84-94) fl MCH 25 L 26 L (28-32) pg MCHC 31 L (32-34) % RDW 22.4 H 23.0 H (13.2-15.2) % [place] % (Auto) 8.1 H (0.0-7.3) % Seg Neutrophils % 73.7 H (40.0-70.0) % POC ABG pO2 (80-105) Chloride (98-107) mmol/L Carbon Dioxide (22-30) mmol/L Glucose (75-100) mg/dL POC Glucose 195 H (70-105) Alkaline Phosphatase (35-129) units/L Albumin (3.9-5) g/dL 09/07/17 09/07/17 09/07/17 Range/Units 07:40 07:40 08:40 RBC (3.65-5.03) M/mm3 Hgb (11.8-15.2) gm/dl Hct (35.5-45.6) % MCV (84-94) fl MCH (28-32) pg MCHC (32-34) % RDW (13.2-15.2) % [place] % (Auto) (0.0-7.3) % Seg Neutrophils % (40.0-70.0) % POC ABG pO2 (80-105) Chloride 108.0 H 109.1 H (98-107) mmol/L Carbon Dioxide 21 L 21 L (22-30) mmol/L Glucose 186 H 183 H (75-100) mg/dL POC Glucose 218 H (70-105) Alkaline Phosphatase 143 H 141 H (35-129) units/L Albumin 2.5 L 2.6 L (3.9-5) g/dL 09/07/17 09/07/17 09/07/17 Range/Units 11:35 14:57 16:35 RBC (3.65-5.03) M/mm3 Hgb (11.8-15.2) gm/dl Hct (35.5-45.6) % MCV (84-94) fl MCH (28-32) pg MCHC (32-34) % RDW (13.2-15.2) % [place] % (Auto) (0.0-7.3) % Seg Neutrophils % (40.0-70.0) % POC ABG pO2 68 L (80-105) Chloride (98-107) mmol/L Carbon Dioxide (22-30) mmol/L Glucose (75-100) mg/dL POC Glucose 229 H 256 H (70-105) Alkaline Phosphatase (35-129) units/L Albumin (3.9-5) g/dL
[2017-09-07 21:45] LABS: Basophils % (Auto) 1.5 % (0.0-1.8); Eosinophils % (Auto) 2.8 % (0.0-4.3); Hematocrit 20.5 % (35.5-45.6); Hemoglobin 6.6 gm/dl (11.8-15.2); Mean Corpuscular HGB Conc 32 % (32-34); Mean Corpuscular Volume 80 fl (84-94); Platelet Count 362 K/mm3 (140-440); Red Blood Count 2.56 M/mm3 (3.65-5.03); White Blood Count 10.9 K/mm3 (4.5-11.0)
[2017-09-07 21:53] LABS: Mean Corpuscular Hemoglobin 26 pg (28-32); Red Cell Distribution Width 22.5 % (13.2-15.2)
[2017-09-08] MEDS: DUONEB *Not for PRN Use IH SCH ×4 (01:10→20:40)
[2017-09-08] MEDS: NOVOLOG SUB-Q SCH ×4 (03:55→19:57)
[2017-09-08] MEDS: PERIACTIN PO SCH ×3 (03:59→22:01)
[2017-09-08] MEDS: CARDURA PO SCH ×3 (03:59→22:01)
[2017-09-08] MEDS: TESSALON PERLES PO SCH ×3 (04:00→16:54)
[2017-09-08] MEDS: TENORMIN PO SCH ×3 (04:00→22:01)
[2017-09-08] MEDS: GLUCOPHAGE PO SCH ×2 (07:30→16:54)
--- NOTE | 2017-09-08 09:11 | Progress Note ---
Assessment and Plan - Patient Problems (1) Colon cancer metastasized to multiple sites Current Visit: Yes Status: Ruled-out Plan to address problem: No definite evidence of multiple metastasis to lung or liver at this point. Repeat CT of the chest was reviewed extensively with Dr. Bradford and he is not convinced at this time that the lesion in the lung is a metastatic lesion. 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 (2) Altered mental status Current Visit: Yes Status: Resolved Qualifiers: Altered mental status type: transient alteration of awareness Qualified Code(s): R40.4 - Transient alteration of awareness Plan to address problem: Urgent with intermittent disorientation, we will review current medication (3) Fever Current Visit: Yes Status: Acute Qualifiers: Fever type: unspecified Qualified Code(s): R50.9 - Fever, unspecified Plan to address problem: Fever finally subsided patient has been afebrile in the last 48 hours and white cell is within normal range we'll continue to monitor patient still on IV antibiotics per ID recommendations will continue same for now (4) Hypertension Current Visit: Yes Status: Acute Qualifiers: Hypertension type: essential hypertension Qualified Code(s): I10 - Essential (primary) hypertension Plan to address problem: Blood pressures is fairly stable on current medication would maintain the same at this time (5) Type 2 diabetes mellitus without complications Current Visit: Yes Status: Acute Plan to address problem: Patient reported with Hypoglycemia this morning ,will hold long acting Insulin Levermir and continue sliding scale insulin for now (6) Deep vein blood clot of left lower extremity Current Visit: Yes Status: Acute Plan to address problem: Patient on IV heparin for both DVT and newly diagnosed pulmonary embolus continuing to grow patient for now with heparin IV patient also to have Avinash filter placement already scheduled Subjective Date of service: 09/08/17 Principal diagnosis: fever from Pneumonia, ant abdomninal; vs abcess, acute DVT and PE Interval history: Patient seen and examined chart reviewed, patient's at bedside. Patient reported to be confused and slightly agitated yesterday and required Ativan for sedation. Patient is currently sleepy but responds to name call, not in acute distress no fever reported. Objective - Exam Narrative Exam: GENERAL: Sleepy but responds to name call HEENT: Moderately pale but not jaundiced and no cyanosis [Mucous membrane is moist, pharynx is clear, no exudates or hemorrhage. Dentition is normal.] NECK: [Supple. Neck showed good range of motion. There is no adenopathy noted. No jugular venous distention and no thyromegaly.] [Neck auscultation showed no carotid bruit.] CHEST/LUNGS: Poor Air exchange bilaterally, expiratory wheezes scattered bilaterally HEART/CARDIOVASCULAR: Tachycardia. Sacral medicines only there is no S3 or S4 gallop ABDOMEN: [Abdomen is protuberant, diffusely tender to deep palpation, active bowel sounds. Surgical site well-healed, diffusely poorly palpated mass in the left lower quadrant SKIN: [There is no rash. There is no edema. There is no diaphoresis.] NEURO: [The patient is awake, alert, and oriented. The patient is cooperative. The patient has no focal neurologic deficits. Cranial nerves 2-12 grossly normal, power is 5/5 in all the extremities tested. The patient has normal speech and gait.] MUSCULOSKELETAL: [There is no tenderness or deformity. There is no limitation range of motion. There is no evidence of acute injury.] EXTREMITIES: Left lower extremity nonpitting edema up to the knee - Constitutional Vitals: Vital Signs - 12hr 09/07/17 09/08/17 09/08/17 22:00 01:10 01:20 Temperature Pulse Rate Pulse Rate [ 79 78 Anterior Bilateral Throughout] Respiratory 20 Rate Respiratory 22 20 Rate [Anterior Bilateral Throughout] Blood Pressure O2 Sat by Pulse Oximetry 09/08/17 09/08/17 09/08/17 01:55 04:57 04:58 Temperature 97.3 F L Pulse Rate 78 85 84 Pulse Rate [ Anterior Bilateral Throughout] Respiratory 20 20 Rate Respiratory Rate [Anterior Bilateral Throughout] Blood Pressure 165/73 O2 Sat by Pulse 98 98 Oximetry 09/08/17 08:04 Temperature 98.4 F Pulse Rate 80 Pulse Rate [ Anterior Bilateral Throughout] Respiratory 30 H Rate Respiratory Rate [Anterior Bilateral Throughout] Blood Pressure 145/72 O2 Sat by Pulse 98 Oximetry - Labs CBC & Chem 7: 09/07/17 21:30 09/07/17 07:40 Labs: Abnormal lab results 09/07/17 09/07/17 09/07/17 Range/Units 08:40 11:35 14:57 RBC (3.65-5.03) M/mm3 Hgb (11.8-15.2) gm/dl Hct (35.5-45.6) % MCV (84-94) fl MCH (28-32) pg RDW (13.2-15.2) % [place] % (Auto) (0.0-7.3) % [place] # (0.0-0.8) K/mm3 Baso # (0.0-0.1) K/mm3 POC ABG pO2 68 L (80-105) POC Glucose 218 H 229 H (70-105) 09/07/17 09/07/17 09/07/17 Range/Units 16:35 21:30 22:35 RBC 2.56 L (3.65-5.03) M/mm3 Hgb 6.6 L (11.8-15.2) gm/dl Hct 20.5 L (35.5-45.6) % MCV 80 L (84-94) fl MCH 26 L (28-32) pg RDW 22.5 H (13.2-15.2) % [place] % (Auto) 8.1 H (0.0-7.3) % [place] # 0.9 H (0.0-0.8) K/mm3 Baso # 0.2 H (0.0-0.1) K/mm3 POC ABG pO2 (80-105) POC Glucose 256 H 230 H (70-105) 09/08/17 Range/Units 08:13 RBC (3.65-5.03) M/mm3 Hgb (11.8-15.2) gm/dl Hct (35.5-45.6) % MCV (84-94) fl MCH (28-32) pg RDW (13.2-15.2) % [place] % (Auto) (0.0-7.3) % [place] # (0.0-0.8) K/mm3 Baso # (0.0-0.1) K/mm3 POC ABG pO2 (80-105) POC Glucose 213 H (70-105)
[2017-09-08] MEDS: HEPARIN/ 0.45% NACL-25,000 UNIT/500 ML 25,000 UNIT/500 ML BAG IV SCH (09:36)
[2017-09-08] MEDS: PULMICORT IH SCH ×2 (09:49→20:40)
[2017-09-08] MEDS: NORVASC PO SCH (10:00)
[2017-09-08] MEDS: ZESTRIL PO SCH (10:00)
--- NOTE | 2017-09-08 16:21 | Progress Note ---
Assessment and Plan - Patient Problems (1) Deep vein blood clot of left lower extremity Current Visit: Yes Status: Acute Plan to address problem: see below. no new issues at this time. (2) Colon cancer metastasized to multiple sites Current Visit: Yes Status: Ruled-out Plan to address problem: see notes. eventually will get chemo/xrt. (3) Lung mass Current Visit: Yes Status: Acute Plan to address problem: see notes. (4) Pulmonary embolism Current Visit: Yes Status: Acute Plan to address problem: anticoags. see notes. (5) DVT (deep venous thrombosis) Current Visit: Yes Status: Acute Qualifiers: Laterality: left Plan to address problem: anti coags. (6) Anemia Current Visit: Yes Status: Acute Plan to address problem: Multi etiology. will need replacement transfusion, and do stool guiac. Subjective Date of service: 09/08/17 Principal diagnosis: fever from Pneumonia, ant abdomninal; vs abcess, acute DVT and PE Interval history: Patient seen/examined, record reviewed, case d/w his daughter at the bed side.No procedure was done today. I have d/w DR BOYD today, and he will see patient .He is confused today, with some lethargy. Patient seen/examined, resting in bed, labs reviewed, notes reviewed. DR OBYD not available yet, so i am seeing patient today.No new issues at this timePatient seen/resting in bed, still some what confused.Notes reviewed, Lung lesion now ? for mets.I have updated DR BOYD today. Objective - Constitutional Vitals: Vital Signs - 12hr 09/08/17 09/08/17 09/08/17 04:57 04:58 08:04 Temperature 97.3 F L 98.4 F Pulse Rate 85 84 80 Respiratory 20 30 H Rate Blood Pressure 165/73 145/72 O2 Sat by Pulse 98 98 98 Oximetry 09/08/17 15:22 Temperature 99.8 F H Pulse Rate 91 H Respiratory 22 Rate Blood Pressure 166/81 O2 Sat by Pulse 97 Oximetry General appearance: Present: mild distress - EENT Eyes: PERRL, EOM intact ENT: hearing intact, clear oral mucosa Ears: bilateral: normal - Neck Neck: supple, normal ROM - Respiratory Respiratory: bilateral: diminished - Cardiovascular Rhythm: regular Heart Sounds: Present: S1 & S2. Absent: gallop, rub Extremities: pulses intact, No edema, normal color, Full ROM - Gastrointestinal General gastrointestinal: Present: soft, non-tender, non-distended, normal bowel sounds Rectal Exam: deferred - Genitourinary Male genitourinary: deferred - Integumentary Integumentary: clear, warm, dry - Musculoskeletal Musculoskeletal: 1, strength equal bilaterally - Neurologic Neurologic: moves all extremities - Psychiatric Psychiatric: appropriate mood/affect - Labs CBC & Chem 7: 09/07/17 21:30 09/07/17 07:40 Labs: Abnormal lab results 09/07/17 09/07/17 09/07/17 Range/Units 16:35 21:30 22:35 RBC 2.56 L (3.65-5.03) M/mm3 Hgb 6.6 L (11.8-15.2) gm/dl Hct 20.5 L (35.5-45.6) % MCV 80 L (84-94) fl MCH 26 L (28-32) pg RDW 22.5 H (13.2-15.2) % [place] % (Auto) 8.1 H (0.0-7.3) % [place] # 0.9 H (0.0-0.8) K/mm3 Baso # 0.2 H (0.0-0.1) K/mm3 POC Glucose 256 H 230 H (70-105) 09/08/17 09/08/17 Range/Units 08:13 11:50 RBC (3.65-5.03) M/mm3 Hgb (11.8-15.2) gm/dl Hct (35.5-45.6) % MCV (84-94) fl MCH (28-32) pg RDW (13.2-15.2) % [place] % (Auto) (0.0-7.3) % [place] # (0.0-0.8) K/mm3 Baso # (0.0-0.1) K/mm3 POC Glucose 213 H 206 H (70-105)
[2017-09-08] MEDS ORDERED: TPN ADULT 2,016 ML IV SCH (20:00)
[2017-09-08 21:22] LABS: Basophils % (Auto) 0.6 % (0.0-1.8); Hematocrit 21.8 % (35.5-45.6); Hemoglobin 6.7 gm/dl (11.8-15.2); Mean Corpuscular HGB Conc 31 % (32-34); Mean Corpuscular Hemoglobin 24 pg (28-32); Mean Corpuscular Volume 79 fl (84-94); Platelet Count 407 K/mm3 (140-440); Red Blood Count 2.74 M/mm3 (3.65-5.03); White Blood Count 12.3 K/mm3 (4.5-11.0)
[2017-09-08] MEDS: ROXICODONE PO PRN (22:03)
[2017-09-09] MEDS: TESSALON PERLES PO SCH ×3 (00:34→17:45)
[2017-09-09] MEDS: NOVOLOG SUB-Q SCH ×4 (00:35→17:39)
[2017-09-09] MEDS: HEPARIN/ 0.45% NACL-25,000 UNIT/500 ML 25,000 UNIT/500 ML BAG IV SCH ×2 (00:36→20:44)
[2017-09-09] MEDS: DUONEB *Not for PRN Use IH SCH ×4 (01:57→19:23)
[2017-09-09] MEDS: ZOSYN/NS 4.5GM/100ML 4.5 GM/100 ML VIAL IV SCH (03:20)
[2017-09-09 07:13] LABS: Basophils % (Auto) 0.3 % (0.0-1.8); Eosinophils % (Auto) 2.1 % (0.0-4.3); Hematocrit 21.2 % (35.5-45.6); Hemoglobin 6.6 gm/dl (11.8-15.2); Mean Corpuscular HGB Conc 31 % (32-34); Mean Corpuscular Volume 80 fl (84-94); Platelet Count 361 K/mm3 (140-440); Red Blood Count 2.64 M/mm3 (3.65-5.03); White Blood Count 10.4 K/mm3 (4.5-11.0)
[2017-09-09 07:15] LABS: Mean Corpuscular Hemoglobin 25 pg (28-32); Red Cell Distribution Width 22.7 % (13.2-15.2)
[2017-09-09 07:32] LABS: Alanine Aminotransferase 26 units/L (7-56); Albumin 2.5 g/dL (3.9-5); Albumin/Globulin Ratio 0.5 %; Alkaline Phosphatase 123 units/L (35-129); BUN/Creatinine Ratio 24; Blood Urea Nitrogen 17 mg/dL (9-20); Calcium 9.6 mg/dL (8.4-10.2); Carbon Dioxide 28 mmol/L (22-30); Chloride 99.1 mmol/L (98-107); Glucose 182 mg/dL (75-100); Potassium 4.4 mmol/L (3.6-5.0); Sodium 136 mmol/L (137-145); Total Protein 7.3 g/dL (6.3-8.2)
[2017-09-09 07:37] LABS: Anion Gap 13 mmol/L
[2017-09-09] MEDS: GLUCOPHAGE PO SCH ×2 (08:00→17:45)
--- NOTE | 2017-09-09 09:24 | Progress Note ---
Assessment and Plan - Patient Problems (1) Colon cancer metastasized to multiple sites Current Visit: Yes Status: Ruled-out Plan to address problem: No definite evidence of multiple metastasis to lung or liver at this point. Repeat CT of the chest was reviewed extensively with Dr. Bradford and he is not convinced at this time that the lesion in the lung is a metastatic lesion. 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 (2) Altered mental status Current Visit: Yes Status: Resolved Qualifiers: Altered mental status type: transient alteration of awareness Qualified Code(s): R40.4 - Transient alteration of awareness Plan to address problem: Urgent with intermittent disorientation, we will review current medication (3) Fever Current Visit: Yes Status: Acute Qualifiers: Fever type: unspecified Qualified Code(s): R50.9 - Fever, unspecified Plan to address problem: Fever finally subsided patient has been afebrile in the last 48 hours and white cell is within normal range we'll continue to monitor patient still on IV antibiotics per ID recommendations will continue same for now (4) Hypertension Current Visit: Yes Status: Acute Qualifiers: Hypertension type: essential hypertension Qualified Code(s): I10 - Essential (primary) hypertension Plan to address problem: Blood pressures is fairly stable on current medication would maintain the same at this time (5) Type 2 diabetes mellitus without complications Current Visit: Yes Status: Acute Plan to address problem: Patient reported with Hypoglycemia this morning ,will hold long acting Insulin Levermir and continue sliding scale insulin for now (6) Deep vein blood clot of left lower extremity Current Visit: Yes Status: Acute Plan to address problem: Patient on IV heparin for both DVT and newly diagnosed pulmonary embolus continuing to grow patient for now with heparin IV patient also to have Avinash filter placement already scheduled Subjective Date of service: 09/09/17 Principal diagnosis: fever from Pneumonia, ant abdomninal; vs abcess, acute DVT and PE Interval history: No new changes no complaints per nursing staff. No fever reported vital stable more awake today Objective - Exam Narrative Exam: GENERAL: Sleepy but responds to name call HEENT: Moderately pale but not jaundiced and no cyanosis [Mucous membrane is moist, pharynx is clear, no exudates or hemorrhage. Dentition is normal.] NECK: [Supple. Neck showed good range of motion. There is no adenopathy noted. No jugular venous distention and no thyromegaly.] [Neck auscultation showed no carotid bruit.] CHEST/LUNGS: Poor Air exchange bilaterally, expiratory wheezes scattered bilaterally HEART/CARDIOVASCULAR: Tachycardia. Sacral medicines only there is no S3 or S4 gallop ABDOMEN: [Abdomen is protuberant, diffusely tender to deep palpation, active bowel sounds. Surgical site well-healed, diffusely poorly palpated mass in the left lower quadrant SKIN: [There is no rash. There is no edema. There is no diaphoresis.] NEURO: [The patient is awake, alert, and oriented. The patient is cooperative. The patient has no focal neurologic deficits. Cranial nerves 2-12 grossly normal, power is 5/5 in all the extremities tested. The patient has normal speech and gait.] MUSCULOSKELETAL: [There is no tenderness or deformity. There is no limitation range of motion. There is no evidence of acute injury.] EXTREMITIES: Left lower extremity nonpitting edema up to the knee - Constitutional Vitals: Vital Signs - 12hr 09/08/17 09/08/17 09/08/17 22:00 22:03 23:03 Temperature Pulse Rate Pulse Rate [ Anterior Bilateral Throughout] Respiratory 20 12 20 Rate Respiratory 20 Rate [Abdomen] Respiratory Rate [Anterior Bilateral Throughout] Blood Pressure Blood Pressure [Right] O2 Sat by Pulse 94 Oximetry 09/09/17 09/09/17 09/09/17 01:57 02:06 05:21 Temperature 99.8 F H Pulse Rate 83 Pulse Rate [ 83 89 Anterior Bilateral Throughout] Respiratory 20 Rate Respiratory Rate [Abdomen] Respiratory 20 20 Rate [Anterior Bilateral Throughout] Blood Pressure 169/82 Blood Pressure [Right] O2 Sat by Pulse 94 Oximetry 09/09/17 09/09/17 09/09/17 07:33 09:09 09:17 Temperature 98.7 F Pulse Rate 73 Pulse Rate [ 82 Anterior Bilateral Throughout] Respiratory 20 Rate Respiratory Rate [Abdomen] Respiratory 20 Rate [Anterior Bilateral Throughout] Blood Pressure Blood Pressure 151/68 [Right] O2 Sat by Pulse 100 100 Oximetry - Labs CBC & Chem 7: 09/09/17 06:50 09/09/17 06:50 Labs: Abnormal lab results 09/08/17 09/08/17 09/08/17 Range/Units 11:50 17:14 20:45 WBC (4.5-11.0) K/mm3 RBC (3.65-5.03) M/mm3 Hgb (11.8-15.2) gm/dl Hct (35.5-45.6) % MCV (84-94) fl MCH (28-32) pg MCHC (32-34) % RDW (13.2-15.2) % [place] % (Auto) (0.0-7.3) % [place] # (0.0-0.8) K/mm3 Heparin Anti-Xa Level 0.15 L (0.3-0.7) U.I./ml Sodium (137-145) mmol/L Creatinine (0.8-1.5) mg/dL Glucose (75-100) mg/dL POC Glucose 206 H 210 H (70-105) Albumin (3.9-5) g/dL 09/08/17 09/08/17 09/09/17 Range/Units 20:50 22:08 06:50 WBC 12.3 H (4.5-11.0) K/mm3 RBC 2.74 L 2.64 L (3.65-5.03) M/mm3 Hgb 6.7 L 6.6 L (11.8-15.2) gm/dl Hct 21.8 L 21.2 L (35.5-45.6) % MCV 79 L 80 L (84-94) fl MCH 24 L 25 L (28-32) pg MCHC 31 L 31 L (32-34) % RDW 23.0 H 22.7 H (13.2-15.2) % [place] % (Auto) 7.7 H 9.3 H (0.0-7.3) % [place] # 0.9 H 1.0 H (0.0-0.8) K/mm3 Heparin Anti-Xa Level (0.3-0.7) U.I./ml Sodium (137-145) mmol/L Creatinine (0.8-1.5) mg/dL Glucose (75-100) mg/dL POC Glucose 217 H (70-105) Albumin (3.9-5) g/dL 09/09/17 09/09/17 Range/Units 06:50 08:00 WBC (4.5-11.0) K/mm3 RBC (3.65-5.03) M/mm3 Hgb (11.8-15.2) gm/dl Hct (35.5-45.6) % MCV (84-94) fl MCH (28-32) pg MCHC (32-34) % RDW (13.2-15.2) % [place] % (Auto) (0.0-7.3) % [place] # (0.0-0.8) K/mm3 Heparin Anti-Xa Level (0.3-0.7) U.I./ml Sodium 136 L (137-145) mmol/L Creatinine 0.7 L (0.8-1.5) mg/dL Glucose 182 H (75-100) mg/dL POC Glucose 245 H (70-105) Albumin 2.5 L (3.9-5) g/dL
[2017-09-09] MEDS: PULMICORT IH SCH ×2 (09:25→19:23)
[2017-09-09] MEDS: TENORMIN PO SCH (10:29)
[2017-09-09] MEDS: PERIACTIN PO SCH (10:29)
[2017-09-09] MEDS: ZESTRIL PO SCH (10:29)
[2017-09-09] MEDS: CARDURA PO SCH (10:29)
[2017-09-09] MEDS: NORVASC PO SCH (10:29)
--- NOTE | 2017-09-09 18:51 | Progress Note ---
Assessment and Plan - Patient Problems (1) Deep vein blood clot of left lower extremity Current Visit: Yes Status: Acute Plan to address problem: see below. no new issues at this time. See notes. (2) Colon cancer metastasized to multiple sites Current Visit: Yes Status: Ruled-out Plan to address problem: see notes. eventually will get chemo/xrt. (3) Lung mass Current Visit: Yes Status: Acute Plan to address problem: see notes. (4) Pulmonary embolism Current Visit: Yes Status: Acute Plan to address problem: anticoags. see notes. (5) DVT (deep venous thrombosis) Current Visit: Yes Status: Acute Qualifiers: Laterality: left Plan to address problem: anti coags. (6) Anemia Current Visit: Yes Status: Acute Plan to address problem: see notes. Subjective Date of service: 09/09/17 Principal diagnosis: fever from Pneumonia, ant abdomninal; vs abcess, acute DVT and PE Interval history: Patient seen/examined, record reviewed, case d/w his daughter at the bed side.No procedure was done today. I have d/w DR BOYD today, and he will see patient .He is confused today, with some lethargy. Patient seen/examined, resting in bed, labs reviewed, notes reviewed. DR BOYD not available yet, so i am seeing patient today.No new issues at this time Patient seen/resting in bed, still some what confused.Notes reviewed, Lung lesion now ? for mets.I have updated DR BOYD today Patient seen/examined, labs reviewed.H/H 6.6 , I have spoken to his nurse, and will draw from a non heparin line Stat. Objective - Constitutional Vitals: Vital Signs - 12hr 09/09/17 09/09/17 09/09/17 07:33 09:09 09:17 Temperature 98.7 F Pulse Rate 73 Pulse Rate [ 82 Anterior Bilateral Throughout] Respiratory 20 Rate Respiratory 20 Rate [Anterior Bilateral Throughout] Blood Pressure 151/68 [Right] O2 Sat by Pulse 100 100 Oximetry 09/09/17 09/09/17 09:29 14:30 Temperature 99.6 F Pulse Rate 82 Pulse Rate [ 80 Anterior Bilateral Throughout] Respiratory 20 Rate Respiratory 20 Rate [Anterior Bilateral Throughout] Blood Pressure 165/77 [Right] O2 Sat by Pulse 96 Oximetry General appearance: Present: mild distress, well-nourished - EENT Eyes: PERRL, EOM intact ENT: hearing intact, clear oral mucosa Ears: bilateral: normal - Neck Neck: supple, normal ROM - Respiratory Respiratory: bilateral: diminished - Cardiovascular Rhythm: regular Heart Sounds: Present: S1 & S2. Absent: gallop, rub Extremities: pulses intact, No edema, normal color, Full ROM - Gastrointestinal General gastrointestinal: Present: soft, non-tender, non-distended, normal bowel sounds Rectal Exam: deferred - Genitourinary Male genitourinary: deferred - Integumentary Integumentary: clear, warm, dry - Musculoskeletal Musculoskeletal: 1, strength equal bilaterally - Neurologic Neurologic: moves all extremities - Psychiatric Psychiatric: memory intact, appropriate mood/affect, intact judgment & insight - Labs CBC & Chem 7: 09/09/17 06:50 09/09/17 06:50 Labs: Abnormal lab results 09/08/17 09/08/17 09/08/17 Range/Units 20:45 20:50 22:08 WBC 12.3 H (4.5-11.0) K/mm3 RBC 2.74 L (3.65-5.03) M/mm3 Hgb 6.7 L (11.8-15.2) gm/dl Hct 21.8 L (35.5-45.6) % MCV 79 L (84-94) fl MCH 24 L (28-32) pg MCHC 31 L (32-34) % RDW 23.0 H (13.2-15.2) % [place] % (Auto) 7.7 H (0.0-7.3) % [place] # 0.9 H (0.0-0.8) K/mm3 Heparin Anti-Xa Level 0.15 L (0.3-0.7) U.I./ml Sodium (137-145) mmol/L Creatinine (0.8-1.5) mg/dL Glucose (75-100) mg/dL POC Glucose 217 H (70-105) Albumin (3.9-5) g/dL 09/09/17 09/09/17 09/09/17 Range/Units 06:50 06:50 08:00 WBC (4.5-11.0) K/mm3 RBC 2.64 L (3.65-5.03) M/mm3 Hgb 6.6 L (11.8-15.2) gm/dl Hct 21.2 L (35.5-45.6) % MCV 80 L (84-94) fl MCH 25 L (28-32) pg MCHC 31 L (32-34) % RDW 22.7 H (13.2-15.2) % [place] % (Auto) 9.3 H (0.0-7.3) % [place] # 1.0 H (0.0-0.8) K/mm3 Heparin Anti-Xa Level (0.3-0.7) U.I./ml Sodium 136 L (137-145) mmol/L Creatinine 0.7 L (0.8-1.5) mg/dL Glucose 182 H (75-100) mg/dL POC Glucose 245 H (70-105) Albumin 2.5 L (3.9-5) g/dL 09/09/17 09/09/17 09/09/17 Range/Units 11:24 16:40 17:50 WBC (4.5-11.0) K/mm3 RBC (3.65-5.03) M/mm3 Hgb (11.8-15.2) gm/dl Hct (35.5-45.6) % MCV (84-94) fl MCH (28-32) pg MCHC (32-34) % RDW (13.2-15.2) % [place] % (Auto) (0.0-7.3) % [place] # (0.0-0.8) K/mm3 Heparin Anti-Xa Level < 0.10 L (0.3-0.7) U.I./ml Sodium (137-145) mmol/L Creatinine (0.8-1.5) mg/dL Glucose (75-100) mg/dL POC Glucose 257 H 220 H (70-105) Albumin (3.9-5) g/dL
[2017-09-09 19:53] LABS: Basophils % (Auto) 0.3 % (0.0-1.8); Eosinophils % (Auto) 1.9 % (0.0-4.3); Hematocrit 40.9 % (35.5-45.6); Hemoglobin 12.8 gm/dl (11.8-15.2); Mean Corpuscular HGB Conc 31 % (32-34); Mean Corpuscular Volume 80 fl (84-94); Platelet Count 233 K/mm3 (140-440); Red Blood Count 5.12 M/mm3 (3.65-5.03); White Blood Count 6.9 K/mm3 (4.5-11.0)
[2017-09-09] MEDS ORDERED: TPN ADULT 2,016 ML IV SCH (20:00)
[2017-09-09] MEDS ORDERED: INTRALIPID 20% 250 ML IV SCH (20:00)
[2017-09-09 20:05] LABS: Mean Corpuscular Hemoglobin 25 pg (28-32); Red Cell Distribution Width 23.3 % (13.2-15.2)
[2017-09-09] MEDS ORDERED: HEPARIN 10,000 UNITS/10 ML IV ONE (20:27)
[2017-09-10] MEDS ORDERED: HEPARIN 10,000 UNITS/10 ML IV NR (00:05)
[2017-09-10] MEDS: TENORMIN PO SCH ×4 (00:06→21:00)
[2017-09-10] MEDS: CARDURA PO SCH ×3 (00:06→20:59)
[2017-09-10] MEDS: PERIACTIN PO SCH ×3 (00:06→21:00)
[2017-09-10] MEDS: NOVOLOG SUB-Q SCH ×5 (00:07→22:42)
[2017-09-10] MEDS: ROXICODONE PO PRN (00:35)
[2017-09-10] MEDS: TESSALON PERLES PO SCH ×3 (00:36→17:54)
[2017-09-10] MEDS: TYLENOL PO PRN ×2 (01:53→09:24)
[2017-09-10] MEDS: DUONEB *Not for PRN Use IH SCH ×4 (01:59→21:28)
[2017-09-10 04:13] LABS: Basophils % (Auto) 0.7 % (0.0-1.8); Eosinophils % (Auto) 2.1 % (0.0-4.3); Hematocrit 20.9 % (35.5-45.6); Hemoglobin 6.7 gm/dl (11.8-15.2); Mean Corpuscular HGB Conc 32 % (32-34); Mean Corpuscular Hemoglobin 26 pg (28-32); Mean Corpuscular Volume 81 fl (84-94); Platelet Count 360 K/mm3 (140-440); Red Blood Count 2.59 M/mm3 (3.65-5.03); White Blood Count 11.1 K/mm3 (4.5-11.0)
[2017-09-10 04:14] LABS: Red Cell Distribution Width 22.6 % (13.2-15.2)
[2017-09-10 04:35] LABS: Anion Gap 14 mmol/L; BUN/Creatinine Ratio 26; Blood Urea Nitrogen 18 mg/dL (9-20); Calcium 9.5 mg/dL (8.4-10.2); Carbon Dioxide 30 mmol/L (22-30); Chloride 98.7 mmol/L (98-107); Glucose 191 mg/dL (75-100); Sodium 139 mmol/L (137-145)
[2017-09-10] MEDS: HEPARIN/ 0.45% NACL-25,000 UNIT/500 ML 25,000 UNIT/500 ML BAG IV SCH (07:02)
[2017-09-10] MEDS: PULMICORT IH SCH ×2 (07:25→21:28)
[2017-09-10] MEDS: GLUCOPHAGE PO SCH ×2 (09:12→17:49)
[2017-09-10] MEDS: NORVASC PO SCH (09:15)
[2017-09-10] MEDS: ZESTRIL PO SCH (09:15)
--- NOTE | 2017-09-10 14:40 | Progress Note ---
Assessment and Plan - Patient Problems (1) Colon cancer metastasized to multiple sites Current Visit: Yes Status: Ruled-out Plan to address problem: No definite evidence of multiple metastasis to lung or liver at this point. Repeat CT of the chest was reviewed extensively with Dr. Bradford and he is not convinced at this time that the lesion in the lung is a metastatic lesion. 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 (2) Altered mental status Current Visit: Yes Status: Resolved Qualifiers: Altered mental status type: transient alteration of awareness Qualified Code(s): R40.4 - Transient alteration of awareness Plan to address problem: Urgent with intermittent disorientation, we will review current medication (3) Fever Current Visit: Yes Status: Acute Qualifiers: Fever type: unspecified Qualified Code(s): R50.9 - Fever, unspecified Plan to address problem: Fever finally subsided patient has been afebrile in the last 48 hours and white cell is within normal range we'll continue to monitor patient still on IV antibiotics per ID recommendations will continue same for now (4) Hypertension Current Visit: Yes Status: Acute Qualifiers: Hypertension type: essential hypertension Qualified Code(s): I10 - Essential (primary) hypertension Plan to address problem: Blood pressures is fairly stable on current medication would maintain the same at this time (5) Type 2 diabetes mellitus without complications Current Visit: Yes Status: Acute Plan to address problem: Patient reported with Hypoglycemia this morning ,will hold long acting Insulin Levermir and continue sliding scale insulin for now (6) Deep vein blood clot of left lower extremity Current Visit: Yes Status: Acute Plan to address problem: Patient on IV heparin for both DVT and newly diagnosed pulmonary embolus continuing to grow patient for now with heparin IV patient also to have Avinash filter placement already scheduled Subjective Date of service: 09/10/17 Principal diagnosis: fever from Pneumonia, ant abdomninal; vs abcess, acute DVT and PE Interval history: Patient feels better , denied any complaints at this time ,still short of breath but cough is better No fever reported and patient stated doing better overall . Objective - Exam Narrative Exam: GENERAL: Sleepy but responds to name call HEENT: Moderately pale but not jaundiced and no cyanosis [Mucous membrane is moist, pharynx is clear, no exudates or hemorrhage. Dentition is normal.] NECK: [Supple. Neck showed good range of motion. There is no adenopathy noted. No jugular venous distention and no thyromegaly.] [Neck auscultation showed no carotid bruit.] CHEST/LUNGS: Poor Air exchange bilaterally, expiratory wheezes scattered bilaterally HEART/CARDIOVASCULAR: Tachycardia. Sacral medicines only there is no S3 or S4 gallop ABDOMEN: [Abdomen is protuberant, diffusely tender to deep palpation, active bowel sounds. Surgical site well-healed, diffusely poorly palpated mass in the left lower quadrant SKIN: [There is no rash. There is no edema. There is no diaphoresis.] NEURO: [The patient is awake, alert, and oriented. The patient is cooperative. The patient has no focal neurologic deficits. Cranial nerves 2-12 grossly normal, power is 5/5 in all the extremities tested. The patient has normal speech and gait.] MUSCULOSKELETAL: [There is no tenderness or deformity. There is no limitation range of motion. There is no evidence of acute injury.] EXTREMITIES: Left lower extremity nonpitting edema up to the knee - Constitutional Vitals: Vital Signs - 12hr 09/10/17 09/10/17 09/10/17 02:53 05:52 07:25 Temperature 99.0 F Pulse Rate 76 Pulse Rate [ 77 Anterior Bilateral Throughout] Respiratory 24 18 Rate Respiratory 18 Rate [Anterior Bilateral Throughout] Blood Pressure 167/81 Blood Pressure [Right] O2 Sat by Pulse 97 97 Oximetry 09/10/17 09/10/17 09/10/17 07:35 08:37 08:39 Temperature 99.2 F Pulse Rate 79 Pulse Rate [ 79 Anterior Bilateral Throughout] Respiratory 20 Rate Respiratory 18 Rate [Anterior Bilateral Throughout] Blood Pressure 165/78 Blood Pressure 165/78 [Right] O2 Sat by Pulse 96 Oximetry 09/10/17 09/10/17 09/10/17 09:13 09:24 10:00 Temperature Pulse Rate 79 Pulse Rate [ Anterior Bilateral Throughout] Respiratory 22 22 Rate Respiratory Rate [Anterior Bilateral Throughout] Blood Pressure 165/78 Blood Pressure [Right] O2 Sat by Pulse Oximetry - Labs CBC & Chem 7: 09/10/17 03:55 09/10/17 03:55 Labs: Abnormal lab results 09/09/17 09/09/17 09/09/17 Range/Units 16:40 17:50 19:14 WBC (4.5-11.0) K/mm3 RBC 5.12 H (3.65-5.03) M/mm3 Hgb (11.8-15.2) gm/dl Hct (35.5-45.6) % MCV 80 L (84-94) fl MCH 25 L (28-32) pg MCHC 31 L (32-34) % RDW 23.3 H (13.2-15.2) % [place] % (Auto) (0.0-7.3) % [place] # (0.0-0.8) K/mm3 Heparin Anti-Xa Level < 0.10 L (0.3-0.7) U.I./ml Creatinine (0.8-1.5) mg/dL Glucose (75-100) mg/dL POC Glucose 220 H (70-105) 09/09/17 09/09/17 09/10/17 Range/Units 19:14 23:50 03:55 WBC 11.1 H (4.5-11.0) K/mm3 RBC 2.59 L (3.65-5.03) M/mm3 Hgb 6.7 L D (11.8-15.2) gm/dl Hct 20.9 L D (35.5-45.6) % MCV 81 L (84-94) fl MCH 26 L (28-32) pg MCHC (32-34) % RDW 22.6 H (13.2-15.2) % [place] % (Auto) 8.7 H (0.0-7.3) % [place] # 1.0 H (0.0-0.8) K/mm3 Heparin Anti-Xa Level < 0.10 L (0.3-0.7) U.I./ml Creatinine (0.8-1.5) mg/dL Glucose (75-100) mg/dL POC Glucose 192 H (70-105) 09/10/17 09/10/17 09/10/17 Range/Units 03:55 08:39 11:33 WBC (4.5-11.0) K/mm3 RBC (3.65-5.03) M/mm3 Hgb (11.8-15.2) gm/dl Hct (35.5-45.6) % MCV (84-94) fl MCH (28-32) pg MCHC (32-34) % RDW (13.2-15.2) % [place] % (Auto) (0.0-7.3) % [place] # (0.0-0.8) K/mm3 Heparin Anti-Xa Level (0.3-0.7) U.I./ml Creatinine 0.7 L (0.8-1.5) mg/dL Glucose 191 H (75-100) mg/dL POC Glucose 233 H 231 H (70-105)
[2017-09-10 14:53] LABS: Hemoglobin 6.1 gm/dl (11.8-15.2)
[2017-09-10 15:03] LABS: Hematocrit 19.8 % (35.5-45.6)
--- NOTE | 2017-09-10 15:41 | Progress Note ---
Assessment and Plan - Patient Problems (1) Deep vein blood clot of left lower extremity Current Visit: Yes Status: Acute Plan to address problem: see below. no new issues at this time. See notes. (2) Colon cancer metastasized to multiple sites Current Visit: Yes Status: Ruled-out Plan to address problem: see notes. eventually will get chemo/xrt. once stable. (3) Lung mass Current Visit: Yes Status: Acute Plan to address problem: see notes. (4) Pulmonary embolism Current Visit: Yes Status: Acute Plan to address problem: anticoags. see notes. (5) DVT (deep venous thrombosis) Current Visit: Yes Status: Acute Qualifiers: Laterality: left Plan to address problem: anti coags. (6) Anemia Current Visit: Yes Status: Acute Plan to address problem: see notes. will transfuse. Subjective Date of service: 09/10/17 Principal diagnosis: fever from Pneumonia, ant abdomninal; vs abcess, acute DVT and PE Interval history: Patient seen/examined, record reviewed, case d/w his daughter at the bed side.No procedure was done today. I have d/w DR BOYD today, and he will see patient .He is confused today, with some lethargy. Patient seen/examined, resting in bed, labs reviewed, notes reviewed. DR BOYD not available yet, so i am seeing patient today.No new issues at this time Patient seen/resting in bed, still some what confused.Notes reviewed, Lung lesion now ? for mets.I have updated DR BOYD today Patient seen/examined, labs reviewed.H/H 6.6 , I have spoken to his nurse, and will draw from a non heparin line Stat. Patient seen, resting in bed, labs reviewed. I have d/w the nurse, and will order PRBC. Objective - Constitutional Vitals: Vital Signs - 12hr 09/10/17 09/10/17 09/10/17 05:52 07:25 07:35 Temperature 99.0 F Pulse Rate 76 Pulse Rate [ 77 79 Anterior Bilateral Throughout] Respiratory 18 Rate Respiratory 18 18 Rate [Anterior Bilateral Throughout] Blood Pressure 167/81 Blood Pressure [Right] O2 Sat by Pulse 97 97 Oximetry 09/10/17 09/10/17 09/10/17 08:37 08:39 09:13 Temperature 99.2 F Pulse Rate 79 79 Pulse Rate [ Anterior Bilateral Throughout] Respiratory 20 Rate Respiratory Rate [Anterior Bilateral Throughout] Blood Pressure 165/78 165/78 Blood Pressure 165/78 [Right] O2 Sat by Pulse 96 Oximetry 09/10/17 09/10/17 09/10/17 09:24 10:00 13:52 Temperature Pulse Rate Pulse Rate [ 76 Anterior Bilateral Throughout] Respiratory 22 22 Rate Respiratory 18 Rate [Anterior Bilateral Throughout] Blood Pressure Blood Pressure [Right] O2 Sat by Pulse Oximetry 09/10/17 14:02 Temperature Pulse Rate Pulse Rate [ 79 Anterior Bilateral Throughout] Respiratory Rate Respiratory 18 Rate [Anterior Bilateral Throughout] Blood Pressure Blood Pressure [Right] O2 Sat by Pulse Oximetry General appearance: Present: mild distress - EENT Eyes: PERRL, EOM intact ENT: hearing intact, clear oral mucosa Ears: bilateral: normal - Neck Neck: supple, normal ROM - Respiratory Respiratory effort: normal Respiratory: bilateral: CTA - Cardiovascular Rhythm: regular Heart Sounds: Present: S1 & S2. Absent: gallop, rub Extremities: pulses intact, No edema, normal color, Full ROM - Gastrointestinal General gastrointestinal: Present: soft, non-tender, non-distended, normal bowel sounds Rectal Exam: deferred - Genitourinary Male genitourinary: deferred - Integumentary Integumentary: clear, warm, dry - Musculoskeletal Musculoskeletal: 1, strength equal bilaterally - Neurologic Neurologic: moves all extremities - Psychiatric Psychiatric: appropriate mood/affect, intact judgment & insight - Labs CBC & Chem 7: 09/10/17 14:30 09/10/17 03:55 Labs: Abnormal lab results 09/09/17 09/09/17 09/09/17 Range/Units 16:40 17:50 19:14 WBC (4.5-11.0) K/mm3 RBC 5.12 H (3.65-5.03) M/mm3 Hgb (11.8-15.2) gm/dl Hct (35.5-45.6) % MCV 80 L (84-94) fl MCH 25 L (28-32) pg MCHC 31 L (32-34) % RDW 23.3 H (13.2-15.2) % Crook % (Auto) (0.0-7.3) % Crook # (0.0-0.8) K/mm3 Heparin Anti-Xa Level < 0.10 L (0.3-0.7) U.I./ml Creatinine (0.8-1.5) mg/dL Glucose (75-100) mg/dL POC Glucose 220 H (70-105) 09/09/17 09/09/17 09/10/17 Range/Units 19:14 23:50 03:55 WBC 11.1 H (4.5-11.0) K/mm3 RBC 2.59 L (3.65-5.03) M/mm3 Hgb 6.7 L D (11.8-15.2) gm/dl Hct 20.9 L D (35.5-45.6) % MCV 81 L (84-94) fl MCH 26 L (28-32) pg MCHC (32-34) % RDW 22.6 H (13.2-15.2) % Crook % (Auto) 8.7 H (0.0-7.3) % Crook # 1.0 H (0.0-0.8) K/mm3 Heparin Anti-Xa Level < 0.10 L (0.3-0.7) U.I./ml Creatinine (0.8-1.5) mg/dL Glucose (75-100) mg/dL POC Glucose 192 H (70-105) 09/10/17 09/10/17 09/10/17 Range/Units 03:55 08:39 11:33 WBC (4.5-11.0) K/mm3 RBC (3.65-5.03) M/mm3 Hgb (11.8-15.2) gm/dl Hct (35.5-45.6) % MCV (84-94) fl MCH (28-32) pg MCHC (32-34) % RDW (13.2-15.2) % Crook % (Auto) (0.0-7.3) % Crook # (0.0-0.8) K/mm3 Heparin Anti-Xa Level (0.3-0.7) U.I./ml Creatinine 0.7 L (0.8-1.5) mg/dL Glucose 191 H (75-100) mg/dL POC Glucose 233 H 231 H (70-105) 09/10/17 Range/Units 14:30 WBC (4.5-11.0) K/mm3 RBC (3.65-5.03) M/mm3 Hgb 6.1 L (11.8-15.2) gm/dl Hct 19.8 L* (35.5-45.6) % MCV (84-94) fl MCH (28-32) pg MCHC (32-34) % RDW (13.2-15.2) % Crook % (Auto) (0.0-7.3) % Crook # (0.0-0.8) K/mm3 Heparin Anti-Xa Level (0.3-0.7) U.I./ml Creatinine (0.8-1.5) mg/dL Glucose (75-100) mg/dL POC Glucose (70-105)
[2017-09-10] MEDS ORDERED: NACL 0.9% 500 ML 500 ML IV ONE (15:43)
[2017-09-10] MEDS: TESSALON PERLES PO PRN (20:59)
[2017-09-10] MEDS: TPN ADULT 2,016 ML IV SCH (21:07)
[2017-09-10] MEDS ORDERED: TPN ADULT 2,016 ML IV SCH (22:00)
[2017-09-11] MEDS: TPN ADULT 2,016 ML IV SCH (01:01)
[2017-09-11] MEDS: ROXICODONE PO PRN ×2 (01:50→20:38)
[2017-09-11] MEDS: DUONEB *Not for PRN Use IH SCH ×4 (02:48→20:06)
[2017-09-11 05:03] LABS: Anion Gap 14 mmol/L; BUN/Creatinine Ratio 21; Blood Urea Nitrogen 17 mg/dL (9-20); Calcium 9.4 mg/dL (8.4-10.2); Carbon Dioxide 29 mmol/L (22-30); Chloride 100.5 mmol/L (98-107); Glucose 174 mg/dL (75-100); Potassium 4.2 mmol/L (3.6-5.0); Sodium 139 mmol/L (137-145)
[2017-09-11] MEDS: NOVOLOG SUB-Q SCH ×4 (07:40→23:22)
[2017-09-11] MEDS: PULMICORT IH SCH ×2 (08:38→20:06)
[2017-09-11] MEDS: GLUCOPHAGE PO SCH ×2 (09:27→18:05)
[2017-09-11] MEDS: CARDURA PO SCH ×2 (10:00→21:14)
[2017-09-11] MEDS: TENORMIN PO SCH ×2 (10:00→21:13)
[2017-09-11] MEDS: ZESTRIL PO SCH (10:00)
[2017-09-11] MEDS: NORVASC PO SCH (10:27)
[2017-09-11] MEDS: PERIACTIN PO SCH ×2 (10:35→21:13)
--- NOTE | 2017-09-11 11:57 | Progress Note ---
Assessment and Plan - Patient Problems (1) Colon cancer metastasized to multiple sites Current Visit: Yes Status: Ruled-out Plan to address problem: No definite evidence of multiple metastasis to lung or liver at this point. Repeat CT of the chest was reviewed extensively with Dr. Bradford and he is not convinced at this time that the lesion in the lung is a metastatic lesion. 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 (2) Altered mental status Current Visit: Yes Status: Resolved Qualifiers: Altered mental status type: transient alteration of awareness Qualified Code(s): R40.4 - Transient alteration of awareness Plan to address problem: Urgent with intermittent disorientation, we will review current medication (3) Fever Current Visit: Yes Status: Acute Qualifiers: Fever type: unspecified Qualified Code(s): R50.9 - Fever, unspecified Plan to address problem: Fever finally subsided patient has been afebrile in the last 48 hours and white cell is within normal range we'll continue to monitor patient still on IV antibiotics per ID recommendations will continue same for now (4) Hypertension Current Visit: Yes Status: Acute Qualifiers: Hypertension type: essential hypertension Qualified Code(s): I10 - Essential (primary) hypertension Plan to address problem: Blood pressures is fairly stable on current medication would maintain the same at this time (5) Type 2 diabetes mellitus without complications Current Visit: Yes Status: Acute Plan to address problem: Patient reported with Hypoglycemia this morning ,will hold long acting Insulin Levermir and continue sliding scale insulin for now (6) Deep vein blood clot of left lower extremity Current Visit: Yes Status: Acute Plan to address problem: Patient on IV heparin for both DVT and newly diagnosed pulmonary embolus continuing to grow patient for now with heparin IV patient also to have Avinash filter placement already scheduled (7) Anemia Current Visit: Yes Status: Acute Qualifiers: Iron deficiency anemia type: chronic blood loss Plan to address problem: Hemoglobin noted 6.1 , repeat if still below 7 will transfuse 2 Units of PRBC Subjective Date of service: 09/11/17 Principal diagnosis: fever from Pneumonia, ant abdomninal; vs abcess, acute DVT and PE Interval history: No new complaints at this time , no fever reported ,denied chest pain and shortness of breath is not worse . Objective - Exam Narrative Exam: GENERAL: Sleepy but responds to name call HEENT: Moderately pale but not jaundiced and no cyanosis [Mucous membrane is moist, pharynx is clear, no exudates or hemorrhage. Dentition is normal.] NECK: [Supple. Neck showed good range of motion. There is no adenopathy noted. No jugular venous distention and no thyromegaly.] [Neck auscultation showed no carotid bruit.] CHEST/LUNGS: Poor Air exchange bilaterally, expiratory wheezes scattered bilaterally HEART/CARDIOVASCULAR: Tachycardia. Sacral medicines only there is no S3 or S4 gallop ABDOMEN: [Abdomen is protuberant, diffusely tender to deep palpation, active bowel sounds. Surgical site well-healed, diffusely poorly palpated mass in the left lower quadrant SKIN: [There is no rash. There is no edema. There is no diaphoresis.] NEURO: [The patient is awake, alert, and oriented. The patient is cooperative. The patient has no focal neurologic deficits. Cranial nerves 2-12 grossly normal, power is 5/5 in all the extremities tested. The patient has normal speech and gait.] MUSCULOSKELETAL: [There is no tenderness or deformity. There is no limitation range of motion. There is no evidence of acute injury.] EXTREMITIES: Left lower extremity nonpitting edema up to the knee - Constitutional Vitals: Vital Signs - 12hr 09/11/17 09/11/17 09/11/17 00:15 02:50 03:02 Temperature 99.9 F H Pulse Rate 77 Pulse Rate [ 87 82 Anterior Bilateral Throughout] Respiratory 22 Rate Respiratory 16 15 Rate [Anterior Bilateral Throughout] Blood Pressure 150/72 Blood Pressure [Right] O2 Sat by Pulse 97 Oximetry 09/11/17 09/11/17 09/11/17 07:30 08:38 08:48 Temperature 99.3 F Pulse Rate 69 Pulse Rate [ 78 79 Anterior Bilateral Throughout] Respiratory 18 Rate Respiratory 18 18 Rate [Anterior Bilateral Throughout] Blood Pressure Blood Pressure 126/59 [Right] O2 Sat by Pulse 93 96 Oximetry - Labs CBC & Chem 7: 09/10/17 14:30 09/11/17 04:27 Labs: Abnormal lab results 09/10/17 09/10/17 09/10/17 Range/Units 11:33 14:30 16:20 Hgb 6.1 L (11.8-15.2) gm/dl Hct 19.8 L* (35.5-45.6) % Glucose (75-100) mg/dL POC Glucose 231 H (70-105) Crossmatch See Detail 09/10/17 09/10/17 09/11/17 Range/Units 16:50 21:25 04:27 Hgb (11.8-15.2) gm/dl Hct (35.5-45.6) % Glucose 174 H (75-100) mg/dL POC Glucose 189 H 113 H (70-105) Crossmatch
[2017-09-11 14:40] LABS: Hematocrit 25.6 % (35.5-45.6); Hemoglobin 8.3 gm/dl (11.8-15.2)
--- NOTE | 2017-09-11 15:32 | Progress Note ---
Assessment and Plan - Patient Problems (1) Deep vein blood clot of left lower extremity Current Visit: Yes Status: Acute Plan to address problem: see below. no new issues at this time. See notes. (2) Colon cancer metastasized to multiple sites Current Visit: Yes Status: Ruled-out Plan to address problem: see notes. eventually will get chemo/xrt. once stable. (3) Lung mass Current Visit: Yes Status: Acute Plan to address problem: see notes. (4) Pulmonary embolism Current Visit: Yes Status: Acute Plan to address problem: anticoags. see notes. (5) DVT (deep venous thrombosis) Current Visit: Yes Status: Acute Qualifiers: Laterality: left Plan to address problem: anti coags. (6) Anemia Current Visit: Yes Status: Acute Qualifiers: Iron deficiency anemia type: chronic blood loss Plan to address problem: see notes. will transfuse. Subjective Date of service: 09/11/17 Principal diagnosis: fever from Pneumonia, ant abdomninal; vs abcess, acute DVT and PE Interval history: Patient seen/examined, record reviewed, case d/w his daughter at the bed side.No procedure was done today. I have d/w DR BOYD today, and he will see patient .He is confused today, with some lethargy. Patient seen/examined, resting in bed, labs reviewed, notes reviewed. DR BOYD not available yet, so i am seeing patient today.No new issues at this time Patient seen/resting in bed, still some what confused.Notes reviewed, Lung lesion now ? for mets.I have updated DR BOYD today Patient seen/examined, labs reviewed.H/H 6.6 , I have spoken to his nurse, and will draw from a non heparin line Stat. Patient seen, resting in bed, labs reviewed. I have d/w the nurse, and will order PRBC. Patient seen/examined, resting in bed, labs reviewed, case d/w patient and family at the bed side. He is s/p 2uPRBC transfusion.He is scheduled for IVC Filter placement, after which he can be transitioned to oral anticoagulation. eloquis. he should be able to transfer to chair, and back to bed once Heparin in therapeutic range. Objective - Constitutional Vitals: Vital Signs - 12hr 09/11/17 09/11/17 09/11/17 07:30 08:38 08:48 Temperature 99.3 F Pulse Rate 69 Pulse Rate [ 78 79 Anterior Bilateral Throughout] Respiratory 18 Rate Respiratory 18 18 Rate [Anterior Bilateral Throughout] Blood Pressure 126/59 [Right] O2 Sat by Pulse 93 96 Oximetry General appearance: Present: no acute distress - EENT Eyes: PERRL, EOM intact ENT: hearing intact, clear oral mucosa Ears: bilateral: normal - Neck Neck: supple, normal ROM - Respiratory Respiratory effort: normal Respiratory: bilateral: CTA - Cardiovascular Rhythm: regular Heart Sounds: Present: S1 & S2. Absent: gallop, rub Extremities: pulses intact, No edema, normal color, Full ROM - Gastrointestinal General gastrointestinal: Present: soft, non-tender, non-distended, normal bowel sounds Rectal Exam: deferred - Genitourinary Male genitourinary: deferred - Integumentary Integumentary: clear, warm, dry - Musculoskeletal Musculoskeletal: 1, strength equal bilaterally - Neurologic Neurologic: moves all extremities - Psychiatric Psychiatric: memory intact, appropriate mood/affect, intact judgment & insight - Labs CBC & Chem 7: 09/11/17 14:20 09/11/17 04:27 Labs: Abnormal lab results 09/10/17 09/10/17 09/10/17 Range/Units 16:20 16:50 21:25 Hgb (11.8-15.2) gm/dl Hct (35.5-45.6) % Heparin Anti-Xa Level (0.3-0.7) U.I./ml Glucose (75-100) mg/dL POC Glucose 189 H 113 H (70-105) Crossmatch See Detail 09/11/17 09/11/17 09/11/17 Range/Units 04:27 11:32 14:18 Hgb (11.8-15.2) gm/dl Hct (35.5-45.6) % Heparin Anti-Xa Level < 0.10 L (0.3-0.7) U.I./ml Glucose 174 H (75-100) mg/dL POC Glucose 298 H (70-105) Crossmatch 09/11/17 Range/Units 14:20 Hgb 8.3 L (11.8-15.2) gm/dl Hct 25.6 L (35.5-45.6) % Heparin Anti-Xa Level (0.3-0.7) U.I./ml Glucose (75-100) mg/dL POC Glucose (70-105) Crossmatch
[2017-09-11] MEDS: TYLENOL PO PRN (18:04)
[2017-09-11] MEDS ORDERED: TPN ADULT 2,016 ML IV SCH (20:00)
[2017-09-11 20:22] LABS: Basophils % (Auto) 0.8 % (0.0-1.8); Eosinophils % (Auto) 1.5 % (0.0-4.3); Hematocrit 26.9 % (35.5-45.6); Hemoglobin 8.6 gm/dl (11.8-15.2); Mean Corpuscular HGB Conc 32 % (32-34); Mean Corpuscular Volume 81 fl (84-94); Platelet Count 352 K/mm3 (140-440); Red Blood Count 3.33 M/mm3 (3.65-5.03); White Blood Count 8.4 K/mm3 (4.5-11.0)
[2017-09-11 20:34] LABS: Mean Corpuscular Hemoglobin 26 pg (28-32); Red Cell Distribution Width 20.3 % (13.2-15.2)
[2017-09-11] MEDS: TESSALON PERLES PO PRN (20:50)
[2017-09-11] MEDS: NORCO PO PRN (20:53)
[2017-09-12] MEDS: DUONEB *Not for PRN Use IH SCH ×4 (02:01→20:12)
[2017-09-12 06:44] LABS: Anion Gap 16 mmol/L; BUN/Creatinine Ratio 28; Blood Urea Nitrogen 22 mg/dL (9-20); Calcium 9.4 mg/dL (8.4-10.2); Carbon Dioxide 29 mmol/L (22-30); Glucose 186 mg/dL (75-100); Potassium 4.4 mmol/L (3.6-5.0); Sodium 141 mmol/L (137-145)
[2017-09-12] MEDS: PULMICORT IH SCH ×2 (08:21→20:12)
[2017-09-12] MEDS: TYLENOL PO PRN (08:30)
[2017-09-12] MEDS: GLUCOPHAGE PO SCH ×2 (08:30→18:15)
[2017-09-12] MEDS: NOVOLOG SUB-Q SCH ×4 (08:31→23:07)
--- NOTE | 2017-09-12 08:49 | Progress Note ---
Assessment and Plan - Patient Problems (1) Colon cancer metastasized to multiple sites Current Visit: Yes Status: Ruled-out Plan to address problem: No definite evidence of multiple metastasis to lung or liver at this point. Repeat CT of the chest was reviewed extensively with Dr. Bradford and he is not convinced at this time that the lesion in the lung is a metastatic lesion. 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 (2) Altered mental status Current Visit: Yes Status: Resolved Qualifiers: Altered mental status type: transient alteration of awareness Qualified Code(s): R40.4 - Transient alteration of awareness Plan to address problem: Urgent with intermittent disorientation, we will review current medication (3) Fever Current Visit: Yes Status: Acute Qualifiers: Fever type: unspecified Qualified Code(s): R50.9 - Fever, unspecified Plan to address problem: Fever finally subsided patient has been afebrile in the last 48 hours and white cell is within normal range we'll continue to monitor patient still on IV antibiotics per ID recommendations will continue same for now (4) Hypertension Current Visit: Yes Status: Acute Qualifiers: Hypertension type: essential hypertension Qualified Code(s): I10 - Essential (primary) hypertension Plan to address problem: Blood pressures is fairly stable on current medication would maintain the same at this time (5) Type 2 diabetes mellitus without complications Current Visit: Yes Status: Acute Plan to address problem: Patient reported with Hypoglycemia this morning ,will hold long acting Insulin Levermir and continue sliding scale insulin for now (6) Deep vein blood clot of left lower extremity Current Visit: Yes Status: Acute Plan to address problem: Patient on IV heparin for both DVT and newly diagnosed pulmonary embolus continuing to grow patient for now with heparin IV patient also to have Avinash filter placement already scheduled (7) Anemia Current Visit: Yes Status: Acute Qualifiers: Iron deficiency anemia type: chronic blood loss Plan to address problem: Hemoglobin noted 6.1 , repeat if still below 7 will transfuse 2 Units of PRBC Subjective Date of service: 09/12/17 Principal diagnosis: fever from Pneumonia, ant abdomninal; vs abcess, acute DVT and PE Interval history: No new complaints ,intermittent confusion reported but patient has been afebrile in the past few days ,appetite is poor but patient still on TPN as well . Vitals stable Objective - Exam Narrative Exam: GENERAL: Sleepy but responds to name call HEENT: Moderately pale but not jaundiced and no cyanosis [Mucous membrane is moist, pharynx is clear, no exudates or hemorrhage. Dentition is normal.] NECK: [Supple. Neck showed good range of motion. There is no adenopathy noted. No jugular venous distention and no thyromegaly.] [Neck auscultation showed no carotid bruit.] CHEST/LUNGS: Poor Air exchange bilaterally, expiratory wheezes scattered bilaterally HEART/CARDIOVASCULAR: Tachycardia. Sacral medicines only there is no S3 or S4 gallop ABDOMEN: [Abdomen is protuberant, diffusely tender to deep palpation, active bowel sounds. Surgical site well-healed, diffusely poorly palpated mass in the left lower quadrant SKIN: [There is no rash. There is no edema. There is no diaphoresis.] NEURO: [The patient is awake, alert, and oriented. The patient is cooperative. The patient has no focal neurologic deficits. Cranial nerves 2-12 grossly normal, power is 5/5 in all the extremities tested. The patient has normal speech and gait.] MUSCULOSKELETAL: [There is no tenderness or deformity. There is no limitation range of motion. There is no evidence of acute injury.] EXTREMITIES: Left lower extremity nonpitting edema up to the knee - Constitutional Vitals: Vital Signs - 12hr 09/11/17 09/11/17 09/11/17 21:09 21:13 21:14 Temperature 100.1 F H Pulse Rate 81 Pulse Rate [ Anterior Bilateral Throughout] Respiratory 20 Rate Respiratory Rate [Anterior Bilateral Throughout] Blood Pressure 155/73 174/83 174/83 Blood Pressure [Right] O2 Sat by Pulse 93 Oximetry 09/11/17 09/11/17 09/12/17 21:18 22:00 04:29 Temperature 100.1 F H 99.1 F Pulse Rate 81 77 Pulse Rate [ Anterior Bilateral Throughout] Respiratory 22 22 22 Rate Respiratory Rate [Anterior Bilateral Throughout] Blood Pressure 167/83 Blood Pressure 155/73 [Right] O2 Sat by Pulse 93 96 Oximetry 09/12/17 09/12/17 09/12/17 08:00 08:22 08:30 Temperature Pulse Rate Pulse Rate [ 77 77 Anterior Bilateral Throughout] Respiratory 20 Rate Respiratory 18 17 Rate [Anterior Bilateral Throughout] Blood Pressure Blood Pressure [Right] O2 Sat by Pulse Oximetry - Labs CBC & Chem 7: 09/11/17 20:11 09/12/17 06:08 Labs: Abnormal lab results 09/11/17 09/11/17 09/11/17 Range/Units 08:06 11:32 14:18 RBC (3.65-5.03) M/mm3 Hgb (11.8-15.2) gm/dl Hct (35.5-45.6) % MCV (84-94) fl MCH (28-32) pg RDW (13.2-15.2) % Douglas % (Auto) (0.0-7.3) % Heparin Anti-Xa Level < 0.10 L (0.3-0.7) U.I./ml BUN (9-20) mg/dL Glucose (75-100) mg/dL POC Glucose 232 H 298 H (70-105) 09/11/17 09/11/17 09/11/17 Range/Units 14:20 17:34 20:11 RBC 3.33 L (3.65-5.03) M/mm3 Hgb 8.3 L 8.6 L (11.8-15.2) gm/dl Hct 25.6 L 26.9 L (35.5-45.6) % MCV 81 L (84-94) fl MCH 26 L (28-32) pg RDW 20.3 H (13.2-15.2) % Douglas % (Auto) 8.9 H (0.0-7.3) % Heparin Anti-Xa Level (0.3-0.7) U.I./ml BUN (9-20) mg/dL Glucose (75-100) mg/dL POC Glucose 184 H (70-105) 09/11/17 09/12/17 09/12/17 Range/Units 22:15 06:08 08:09 RBC (3.65-5.03) M/mm3 Hgb (11.8-15.2) gm/dl Hct (35.5-45.6) % MCV (84-94) fl MCH (28-32) pg RDW (13.2-15.2) % Douglas % (Auto) (0.0-7.3) % Heparin Anti-Xa Level (0.3-0.7) U.I./ml BUN 22 H (9-20) mg/dL Glucose 186 H (75-100) mg/dL POC Glucose 184 H 228 H (70-105)
[2017-09-12] MEDS: CARDURA PO SCH ×2 (09:30→22:00)
[2017-09-12] MEDS: ZESTRIL PO SCH (09:30)
[2017-09-12] MEDS: PERIACTIN PO SCH ×2 (09:30→22:00)
[2017-09-12] MEDS: TENORMIN PO SCH ×2 (09:31→22:00)
[2017-09-12] MEDS: NORVASC PO SCH (09:36)
[2017-09-12] MEDS: HEPARIN/ 0.45% NACL-25,000 UNIT/500 ML 25,000 UNIT/500 ML BAG IV SCH ×2 (10:46→23:07)
[2017-09-12] MEDS: NORCO PO PRN (18:16)
[2017-09-12] MEDS ORDERED: INTRALIPID 20% 250 ML IV SCH (20:00)
[2017-09-12] MEDS ORDERED: TPN ADULT 2,016 ML IV SCH (20:00)
--- NOTE | 2017-09-12 21:42 | Progress Note ---
Assessment and Plan - Patient Problems (1) Deep vein blood clot of left lower extremity Current Visit: Yes Status: Acute Plan to address problem: see below. no new issues at this time. See notes. (2) Colon cancer metastasized to multiple sites Current Visit: Yes Status: Ruled-out Plan to address problem: see notes. eventually will get chemo/xrt. once stable. (3) Lung mass Current Visit: Yes Status: Acute Plan to address problem: see notes. (4) Pulmonary embolism Current Visit: Yes Status: Acute Plan to address problem: anticoags. see notes. (5) DVT (deep venous thrombosis) Current Visit: Yes Status: Acute Qualifiers: Laterality: left Plan to address problem: anti coags. (6) Anemia Current Visit: Yes Status: Acute Qualifiers: Iron deficiency anemia type: chronic blood loss Plan to address problem: see notes. will transfuse. Subjective Date of service: 09/12/17 Principal diagnosis: fever from Pneumonia, ant abdomninal; vs abcess, acute DVT and PE Interval history: Patient seen/examined, record reviewed, case d/w his daughter at the bed side.No procedure was done today. I have d/w DR BOYD today, and he will see patient .He is confused today, with some lethargy. Patient seen/examined, resting in bed, labs reviewed, notes reviewed. DR BOYD not available yet, so i am seeing patient today.No new issues at this time Patient seen/resting in bed, still some what confused.Notes reviewed, Lung lesion now ? for mets.I have updated DR BOYD today Patient seen/examined, labs reviewed.H/H 6.6 , I have spoken to his nurse, and will draw from a non heparin line Stat. Patient seen, resting in bed, labs reviewed. I have d/w the nurse, and will order PRBC. Patient seen/examined, resting in bed, labs reviewed, case d/w patient and family at the bed side. He is s/p 2uPRBC transfusion.He is scheduled for IVC Filter placement, after which he can be transitioned to oral anticoagulation. eloquis. he should be able to transfer to chair, and back to bed once Heparin in therapeutic range. Patient seen/examined, labs reviewd, case d/w patient, and family.IVC filter not placed, so patient restarted on his Heparin.once placed, then patient can be ab;e to move around. Objective - Constitutional Vitals: Vital Signs - 12hr 09/12/17 09/12/17 09/12/17 14:22 14:23 14:29 Temperature Pulse Rate Pulse Rate [ 75 78 Anterior Bilateral Throughout] Respiratory Rate Respiratory 20 18 Rate [Anterior Bilateral Throughout] Blood Pressure O2 Sat by Pulse 96 Oximetry 09/12/17 09/12/17 09/12/17 15:29 15:30 18:16 Temperature 99.0 F Pulse Rate 79 78 Pulse Rate [ Anterior Bilateral Throughout] Respiratory 20 20 Rate Respiratory Rate [Anterior Bilateral Throughout] Blood Pressure 156/74 O2 Sat by Pulse 95 96 Oximetry General appearance: Present: no acute distress - EENT Eyes: PERRL, EOM intact ENT: hearing intact, clear oral mucosa Ears: bilateral: normal - Neck Neck: supple, normal ROM - Respiratory Respiratory: bilateral: diminished - Cardiovascular Rhythm: regular Heart Sounds: Present: S1 & S2. Absent: gallop, rub Extremities: pulses intact, No edema, normal color, Full ROM - Gastrointestinal General gastrointestinal: Present: soft, non-tender, non-distended, normal bowel sounds Rectal Exam: deferred - Genitourinary Male genitourinary: deferred - Integumentary Integumentary: clear, warm, dry - Musculoskeletal Musculoskeletal: 1, strength equal bilaterally - Neurologic Neurologic: moves all extremities - Psychiatric Psychiatric: appropriate mood/affect, intact judgment & insight - Labs CBC & Chem 7: 09/11/17 20:11 09/12/17 06:08 Labs: Abnormal lab results 09/11/17 09/12/17 09/12/17 Range/Units 22:15 06:08 08:09 BUN 22 H (9-20) mg/dL Glucose 186 H (75-100) mg/dL POC Glucose 184 H 228 H (70-105) 09/12/17 09/12/17 Range/Units 11:20 17:49 BUN (9-20) mg/dL Glucose (75-100) mg/dL POC Glucose 238 H 197 H (70-105)
[2017-09-12] MEDS: TESSALON PERLES PO PRN (22:00)
[2017-09-13 04:08] LABS: Anion Gap 14 mmol/L; BUN/Creatinine Ratio 28; Blood Urea Nitrogen 22 mg/dL (9-20); Calcium 9.1 mg/dL (8.4-10.2); Carbon Dioxide 29 mmol/L (22-30); Chloride 97.5 mmol/L (98-107); Glucose 192 mg/dL (75-100); Potassium 3.9 mmol/L (3.6-5.0); Sodium 137 mmol/L (137-145)
--- NOTE | 2017-09-13 08:20 | Progress Note ---
Assessment and Plan - Patient Problems (1) Colon cancer metastasized to multiple sites Current Visit: Yes Status: Ruled-out Plan to address problem: No definite evidence of multiple metastasis to lung or liver at this point. Repeat CT of the chest was reviewed extensively with Dr. Bradford and he is not convinced at this time that the lesion in the lung is a metastatic lesion. 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 (2) Altered mental status Current Visit: Yes Status: Resolved Qualifiers: Altered mental status type: transient alteration of awareness Qualified Code(s): R40.4 - Transient alteration of awareness Plan to address problem: Urgent with intermittent disorientation, we will review current medication (3) Fever Current Visit: Yes Status: Acute Qualifiers: Fever type: unspecified Qualified Code(s): R50.9 - Fever, unspecified Plan to address problem: Fever finally subsided patient has been afebrile in the last 48 hours and white cell is within normal range and patient is currently off antibiotics will continue to monitor (4) Hypertension Current Visit: Yes Status: Acute Qualifiers: Hypertension type: essential hypertension Qualified Code(s): I10 - Essential (primary) hypertension Plan to address problem: Blood pressures is fairly stable on current medication would maintain the same at this time (5) Type 2 diabetes mellitus without complications Current Visit: Yes Status: Acute Plan to address problem: Patient reported with Hypoglycemia this morning ,will hold long acting Insulin Levermir and continue sliding scale insulin for now (6) Deep vein blood clot of left lower extremity Current Visit: Yes Status: Acute Plan to address problem: Currently on IV heparin awaiting [place] filter placement by vascular surgery , we'll reconsult shouldn't now stable to proceed with IVC placement. (7) Anemia Current Visit: Yes Status: Acute Qualifiers: Iron deficiency anemia type: chronic blood loss Plan to address problem: Hemoglobin noted is a 8.6 status post transfusion of 2 units of packed red blood cells will continue to monitor H&H Subjective Date of service: 09/13/17 Principal diagnosis: fever from Pneumonia, ant abdomninal; vs abcess, acute DVT and PE Interval history: Patient resting comfortably in bed, no new complaints per nursing staff, still has ongoing intermittent confusion but no agitation reported. Patient stated that he is less short of breath and no fever reported patient currently off antibiotics. Appetite remains poor Objective - Exam Narrative Exam: GENERAL: Patient resting comfortably in bed, mildly pale but not jaundiced not in any acute distress. HEENT: Mucous membrane is moist, pharynx is clear. NECK: [No JVD, no thyroid enlargement and no lymphadenopathy.] CHEST/LUNGS: Reduced air exchange bibasally, a few rhonchi no wheezes no rales [No chest wall tenderness, percussion is normal, symmetrical chest wall.] HEART/CARDIOVASCULAR: [Regular rate and rhythm, S1 and S2 only, no murmur.] ABDOMEN: [Abdomen is soft, nondistended, multiple healed laparotomy scars no guarding, no rebound tenderness, , active bowel sounds.] SKIN: [Warm and dry, no rash.] NEURO: [Awake, alert, oriented x3, speech normal. ] EXTREMITIES: Pedal edema left lower extremity up to below the knee, no edema on the right, good peripheral pulses bilaterally no finger or toe clubbing. - Constitutional Vitals: Vital Signs - 12hr 09/12/17 09/12/17 09/13/17 21:11 22:00 04:20 Temperature 99.3 F 99.8 F H Pulse Rate 82 82 78 Respiratory 20 20 18 Rate Respiratory 20 Rate [Abdomen] Blood Pressure 151/70 151/70 155/72 O2 Sat by Pulse 97 97 94 Oximetry - Labs CBC & Chem 7: 09/11/17 20:11 09/13/17 03:25 Labs: Abnormal lab results 09/12/17 09/12/17 09/12/17 Range/Units 08:09 11:20 17:49 Chloride (98-107) mmol/L BUN (9-20) mg/dL Glucose (75-100) mg/dL POC Glucose 228 H 238 H 197 H (70-105) 09/13/17 Range/Units 03:25 Chloride 97.5 L (98-107) mmol/L BUN 22 H (9-20) mg/dL Glucose 192 H (75-100) mg/dL POC Glucose (70-105)
[2017-09-13] MEDS: DUONEB *Not for PRN Use IH SCH ×5 (10:07→20:50)
[2017-09-13] MEDS: PULMICORT IH SCH ×3 (10:44→20:50)
[2017-09-13] MEDS: TENORMIN PO SCH ×2 (11:10→23:09)
[2017-09-13] MEDS: CARDURA PO SCH ×2 (11:12→23:09)
[2017-09-13] MEDS: ZESTRIL PO SCH (11:12)
[2017-09-13] MEDS: PERIACTIN PO SCH ×2 (11:12→23:11)
[2017-09-13] MEDS: NORVASC PO SCH (11:12)
[2017-09-13] MEDS: GLUCOPHAGE PO SCH ×2 (11:12→18:33)
[2017-09-13] MEDS: NOVOLOG SUB-Q SCH ×3 (11:15→18:33)
[2017-09-13] MEDS: HEPARIN/ 0.45% NACL-25,000 UNIT/500 ML 25,000 UNIT/500 ML BAG IV SCH ×2 (12:11→23:00)
[2017-09-13] MEDS: NORCO PO PRN (12:19)
--- NOTE | 2017-09-13 18:37 | Progress Note ---
Assessment and Plan - Patient Problems (1) Deep vein blood clot of left lower extremity Current Visit: Yes Status: Acute Plan to address problem: see below. no new issues at this time. See notes. (2) Colon cancer metastasized to multiple sites Current Visit: Yes Status: Ruled-out Plan to address problem: see notes. eventually will get chemo/xrt. once stable. (3) Lung mass Current Visit: Yes Status: Acute Plan to address problem: see notes. (4) Pulmonary embolism Current Visit: Yes Status: Acute Plan to address problem: anticoags. see notes. (5) DVT (deep venous thrombosis) Current Visit: Yes Status: Acute Qualifiers: Laterality: left Plan to address problem: anti coags. (6) Anemia Current Visit: Yes Status: Acute Qualifiers: Iron deficiency anemia type: chronic blood loss Plan to address problem: see notes. will transfuse. Subjective Date of service: 09/13/17 Principal diagnosis: fever from Pneumonia, ant abdomninal; vs abcess, acute DVT and PE Interval history: Patient seen/examined, record reviewed, case d/w his daughter at the bed side.No procedure was done today. I have d/w DR BOYD today, and he will see patient .He is confused today, with some lethargy. Patient seen/examined, resting in bed, labs reviewed, notes reviewed. DR BOYD not available yet, so i am seeing patient today.No new issues at this time Patient seen/resting in bed, still some what confused.Notes reviewed, Lung lesion now ? for mets.I have updated DR BOYD today Patient seen/examined, labs reviewed.H/H 6.6 , I have spoken to his nurse, and will draw from a non heparin line Stat. Patient seen, resting in bed, labs reviewed. I have d/w the nurse, and will order PRBC. Patient seen/examined, resting in bed, labs reviewed, case d/w patient and family at the bed side. He is s/p 2uPRBC transfusion.He is scheduled for IVC Filter placement, after which he can be transitioned to oral anticoagulation. eloquis. he should be able to transfer to chair, and back to bed once Heparin in therapeutic range. Patient seen/examined, labs reviewed, case d/w patient, and family.IVC filter not placed, so patient restarted on his Heparin.once placed, then patient can be ab;e to move around. Patient seen/examined, ,resting in bed, family at the bed side, IVC filter placement was not done. for some unknown reason..I have discussed with DR Mirza this morning that once Filter placed, he may be d/c home to start chemo. Objective - Constitutional Vitals: Vital Signs - 12hr 09/13/17 09/13/17 09/13/17 07:27 09:45 09:55 Temperature 99.5 F Pulse Rate 77 Pulse Rate [ 74 70 Anterior Bilateral Throughout] Respiratory 18 Rate Respiratory 20 20 Rate [Anterior Bilateral Throughout] Blood Pressure 150/72 O2 Sat by Pulse 100 Oximetry 09/13/17 09/13/17 09/13/17 10:20 11:10 11:12 Temperature Pulse Rate 77 Pulse Rate [ Anterior Bilateral Throughout] Respiratory Rate Respiratory Rate [Anterior Bilateral Throughout] Blood Pressure 150/72 150/72 O2 Sat by Pulse 100 Oximetry 09/13/17 09/13/17 09/13/17 15:15 15:20 15:29 Temperature Pulse Rate Pulse Rate [ 74 76 Anterior Bilateral Throughout] Respiratory Rate Respiratory 18 18 Rate [Anterior Bilateral Throughout] Blood Pressure O2 Sat by Pulse 88 96 Oximetry 09/13/17 15:33 Temperature 98.8 F Pulse Rate 71 Pulse Rate [ Anterior Bilateral Throughout] Respiratory 18 Rate Respiratory Rate [Anterior Bilateral Throughout] Blood Pressure 141/66 O2 Sat by Pulse 95 Oximetry General appearance: Present: no acute distress - EENT Eyes: PERRL, EOM intact ENT: hearing intact, clear oral mucosa Ears: bilateral: normal - Neck Neck: supple, normal ROM - Respiratory Respiratory: bilateral: CTA - Cardiovascular Rhythm: regular Heart Sounds: Present: S1 & S2. Absent: gallop, rub Extremities: pulses intact, No edema, normal color, Full ROM - Gastrointestinal General gastrointestinal: Present: soft, non-tender, non-distended, normal bowel sounds Rectal Exam: deferred - Genitourinary Male genitourinary: deferred - Integumentary Integumentary: clear, warm, dry - Musculoskeletal Musculoskeletal: 1, strength equal bilaterally - Neurologic Neurologic: moves all extremities - Psychiatric Psychiatric: memory intact, appropriate mood/affect, intact judgment & insight - Labs CBC & Chem 7: 09/11/17 20:11 09/13/17 03:25 Labs: Abnormal lab results 09/12/17 09/13/17 09/13/17 Range/Units 22:50 03:25 07:30 Chloride 97.5 L (98-107) mmol/L BUN 22 H (9-20) mg/dL Glucose 192 H (75-100) mg/dL POC Glucose 186 H 210 H (70-105) 09/13/17 09/13/17 Range/Units 11:55 16:56 Chloride (98-107) mmol/L BUN (9-20) mg/dL Glucose (75-100) mg/dL POC Glucose 224 H 179 H (70-105)
[2017-09-13] MEDS ORDERED: TPN ADULT 2,016 ML IV SCH (20:00)
[2017-09-13] MEDS: TESSALON PERLES PO PRN (23:09)
[2017-09-14] MEDS: NORCO PO PRN ×3 (00:42→21:44)
[2017-09-14] MEDS: NOVOLOG SUB-Q SCH ×5 (00:46→23:17)
[2017-09-14] MEDS: DUONEB *Not for PRN Use IH SCH ×4 (02:30→20:29)
--- NOTE | 2017-09-14 04:10 | Progress Note ---
Assessment and Plan - Patient Problems (1) Colon cancer metastasized to multiple sites Current Visit: Yes Status: Ruled-out Plan to address problem: No definite evidence of multiple metastasis to lung or liver at this point. Repeat CT of the chest was reviewed extensively with Dr. Bradford and he is not convinced at this time that the lesion in the lung is a metastatic lesion. 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 (2) Altered mental status Current Visit: Yes Status: Resolved Qualifiers: Altered mental status type: transient alteration of awareness Qualified Code(s): R40.4 - Transient alteration of awareness Plan to address problem: Urgent with intermittent disorientation, we will review current medication (3) Fever Current Visit: Yes Status: Acute Qualifiers: Fever type: unspecified Qualified Code(s): R50.9 - Fever, unspecified Plan to address problem: Fever finally subsided patient has been afebrile in the last 48 hours and white cell is within normal range and patient is currently off antibiotics will continue to monitor (4) Hypertension Current Visit: Yes Status: Acute Qualifiers: Hypertension type: essential hypertension Qualified Code(s): I10 - Essential (primary) hypertension Plan to address problem: Blood pressures is fairly stable on current medication would maintain the same at this time (5) Type 2 diabetes mellitus without complications Current Visit: Yes Status: Acute Plan to address problem: Patient reported with Hypoglycemia this morning ,will hold long acting Insulin Levermir and continue sliding scale insulin for now (6) Deep vein blood clot of left lower extremity Current Visit: Yes Status: Acute Plan to address problem: Currently on IV heparin awaiting [place] filter placement by vascular surgery , we'll reconsult shouldn't now stable to proceed with IVC placement. (7) Anemia Current Visit: Yes Status: Acute Qualifiers: Iron deficiency anemia type: chronic blood loss Plan to address problem: Hemoglobin noted is a 8.6 status post transfusion of 2 units of packed red blood cells will continue to monitor H&H Subjective Date of service: 09/14/17 Principal diagnosis: fever from Pneumonia, ant abdomninal; vs abcess, acute DVT and PE Interval history: No new changes , patient resting comfortably in bed ,no fever reported . Vitals stable Objective - Exam Narrative Exam: GENERAL: Patient resting comfortably in bed, mildly pale but not jaundiced not in any acute distress. HEENT: Mucous membrane is moist, pharynx is clear. NECK: [No JVD, no thyroid enlargement and no lymphadenopathy.] CHEST/LUNGS: Reduced air exchange bibasally, a few rhonchi no wheezes no rales [No chest wall tenderness, percussion is normal, symmetrical chest wall.] HEART/CARDIOVASCULAR: [Regular rate and rhythm, S1 and S2 only, no murmur.] ABDOMEN: [Abdomen is soft, nondistended, multiple healed laparotomy scars no guarding, no rebound tenderness, , active bowel sounds.] SKIN: [Warm and dry, no rash.] NEURO: [Awake, alert, oriented x3, speech normal. ] EXTREMITIES: Pedal edema left lower extremity up to below the knee, no edema on the right, good peripheral pulses bilaterally no finger or toe clubbing. - Constitutional Vitals: Vital Signs - 12hr 09/13/17 09/13/17 09/14/17 19:45 20:49 00:42 Temperature 97.8 F Pulse Rate 97 H Pulse Rate [ Anterior Bilateral Throughout] Respiratory 24 16 Rate Respiratory Rate [Anterior Bilateral Throughout] Blood Pressure 139/69 [Right] O2 Sat by Pulse 96 97 Oximetry 09/14/17 09/14/17 02:30 02:40 Temperature Pulse Rate Pulse Rate [ 74 85 Anterior Bilateral Throughout] Respiratory Rate Respiratory 18 20 Rate [Anterior Bilateral Throughout] Blood Pressure [Right] O2 Sat by Pulse Oximetry - Labs CBC & Chem 7: 09/11/17 20:11 09/13/17 03:25 Labs: Abnormal lab results 09/12/17 09/13/17 09/13/17 Range/Units 22:50 07:30 11:55 POC Glucose 186 H 210 H 224 H (70-105) 09/13/17 09/13/17 Range/Units 16:56 23:57 POC Glucose 179 H 153 H (70-105)
[2017-09-14 05:44] LABS: Anion Gap 16 mmol/L; BUN/Creatinine Ratio 30; Blood Urea Nitrogen 24 mg/dL (9-20); Calcium 9.3 mg/dL (8.4-10.2); Carbon Dioxide 26 mmol/L (22-30); Chloride 99.1 mmol/L (98-107); Glucose 198 mg/dL (75-100); Potassium 4.2 mmol/L (3.6-5.0); Sodium 137 mmol/L (137-145)
--- NOTE | 2017-09-14 09:26 | Progress Note ---
Assessment and Plan - Patient Problems (1) Deep vein blood clot of left lower extremity Current Visit: Yes Status: Acute Plan to address problem: see below. no new issues at this time. See notes. (2) Colon cancer metastasized to multiple sites Current Visit: Yes Status: Ruled-out Plan to address problem: see notes. eventually will get chemo/xrt. once stable. (3) Lung mass Current Visit: Yes Status: Acute Plan to address problem: see notes. (4) Pulmonary embolism Current Visit: Yes Status: Acute Plan to address problem: anticoags. see notes. (5) DVT (deep venous thrombosis) Current Visit: Yes Status: Acute Qualifiers: Laterality: left Plan to address problem: anti coags. (6) Anemia Current Visit: Yes Status: Acute Qualifiers: Iron deficiency anemia type: chronic blood loss Plan to address problem: see notes. will transfuse. Subjective Date of service: 09/14/17 Principal diagnosis: fever from Pneumonia, ant abdomninal; vs abcess, acute DVT and PE Interval history: Patient seen/examined, record reviewed, case d/w his daughter at the bed side.No procedure was done today. I have d/w DR BOYD today, and he will see patient .He is confused today, with some lethargy. Patient seen/examined, resting in bed, labs reviewed, notes reviewed. DR BOYD not available yet, so i am seeing patient today.No new issues at this time Patient seen/resting in bed, still some what confused.Notes reviewed, Lung lesion now ? for mets.I have updated DR BOYD today Patient seen/examined, labs reviewed.H/H 6.6 , I have spoken to his nurse, and will draw from a non heparin line Stat. Patient seen, resting in bed, labs reviewed. I have d/w the nurse, and will order PRBC. Patient seen/examined, resting in bed, labs reviewed, case d/w patient and family at the bed side. He is s/p 2uPRBC transfusion.He is scheduled for IVC Filter placement, after which he can be transitioned to oral anticoagulation. eloquis. he should be able to transfer to chair, and back to bed once Heparin in therapeutic range. Patient seen/examined, labs reviewed, case d/w patient, and family.IVC filter not placed, so patient restarted on his Heparin.once placed, then patient can be ab;e to move around. Patient seen/examined, ,resting in bed, family at the bed side, IVC filter placement was not done. for some unknown reason..I have discussed with DR Mirza this morning that once Filter placed, he may be d/c home to start chemo. Patient seen/examined, case d/w patient / at the bed side.I will speak with IR about Filter placement, so patient can proceed with chemo. Objective - Constitutional Vitals: Vital Signs - 12hr 09/13/17 09/13/17 09/14/17 22:00 23:55 00:42 Temperature Pulse Rate Pulse Rate [ Anterior Bilateral Throughout] Respiratory 20 16 Rate Respiratory 20 Rate [Abdomen] Respiratory Rate [Anterior Bilateral Throughout] Blood Pressure Blood Pressure [Right] O2 Sat by Pulse 96 Oximetry 09/14/17 09/14/17 09/14/17 01:42 02:30 02:40 Temperature Pulse Rate Pulse Rate [ 74 85 Anterior Bilateral Throughout] Respiratory 20 Rate Respiratory Rate [Abdomen] Respiratory 18 20 Rate [Anterior Bilateral Throughout] Blood Pressure Blood Pressure [Right] O2 Sat by Pulse Oximetry 09/14/17 09/14/17 09/14/17 05:20 08:25 08:27 Temperature 97.6 F 99.7 F H Pulse Rate 74 83 Pulse Rate [ Anterior Bilateral Throughout] Respiratory 22 20 Rate Respiratory Rate [Abdomen] Respiratory Rate [Anterior Bilateral Throughout] Blood Pressure 134/63 Blood Pressure 164/79 [Right] O2 Sat by Pulse 95 85 Oximetry General appearance: Present: mild distress, well-nourished - EENT Eyes: PERRL, EOM intact ENT: hearing intact, clear oral mucosa Ears: bilateral: normal - Neck Neck: supple, normal ROM - Respiratory Respiratory effort: normal Respiratory: bilateral: CTA - Cardiovascular Rhythm: regular Heart Sounds: Present: S1 & S2. Absent: gallop, rub Extremities: pulses intact, No edema, normal color, Full ROM - Gastrointestinal General gastrointestinal: Present: soft, non-tender, non-distended, normal bowel sounds Rectal Exam: deferred - Genitourinary Male genitourinary: deferred - Integumentary Integumentary: clear, warm, dry - Musculoskeletal Musculoskeletal: 1, strength equal bilaterally - Neurologic Neurologic: moves all extremities - Psychiatric Psychiatric: memory intact, appropriate mood/affect, intact judgment & insight - Labs CBC & Chem 7: 09/11/17 20:11 09/14/17 04:04 Labs: Abnormal lab results 09/13/17 09/13/17 09/13/17 Range/Units 11:55 16:56 23:57 Heparin Anti-Xa Level (0.3-0.7) U.I./ml BUN (9-20) mg/dL Glucose (75-100) mg/dL POC Glucose 224 H 179 H 153 H (70-105) 09/14/17 09/14/17 Range/Units 04:04 06:20 Heparin Anti-Xa Level 0.72 H (0.3-0.7) U.I./ml BUN 24 H (9-20) mg/dL Glucose 198 H (75-100) mg/dL POC Glucose (70-105)
[2017-09-14] MEDS: PULMICORT IH SCH ×2 (10:00→20:29)
[2017-09-14] MEDS: GLUCOPHAGE PO SCH ×2 (11:21→18:58)
[2017-09-14] MEDS: NORVASC PO SCH (11:21)
[2017-09-14] MEDS: TENORMIN PO SCH ×2 (11:22→21:46)
[2017-09-14] MEDS: ZESTRIL PO SCH (11:22)
[2017-09-14] MEDS: CARDURA PO SCH ×2 (11:23→21:46)
[2017-09-14] MEDS: PERIACTIN PO SCH ×2 (11:23→21:46)
[2017-09-14] MEDS: HEPARIN/ 0.45% NACL-25,000 UNIT/500 ML 25,000 UNIT/500 ML BAG IV SCH (16:19)
[2017-09-14] MEDS ORDERED: TPN ADULT 2,016 ML IV SCH (20:00)
[2017-09-14] MEDS ORDERED: INTRALIPID 20% 250 ML IV SCH (20:00)
[2017-09-14] MEDS: TESSALON PERLES PO PRN (21:46)
[2017-09-15] MEDS: DUONEB *Not for PRN Use IH SCH ×4 (02:45→20:54)
[2017-09-15] MEDS: HEPARIN/ 0.45% NACL-25,000 UNIT/500 ML 25,000 UNIT/500 ML BAG IV SCH ×2 (04:39→17:02)
[2017-09-15 06:33] LABS: Anion Gap 17 mmol/L; BUN/Creatinine Ratio 36; Blood Urea Nitrogen 29 mg/dL (9-20); Calcium 9.1 mg/dL (8.4-10.2); Carbon Dioxide 26 mmol/L (22-30); Chloride 100.6 mmol/L (98-107); Glucose 212 mg/dL (75-100); Potassium 4.5 mmol/L (3.6-5.0); Sodium 139 mmol/L (137-145)
[2017-09-15] MEDS: NOVOLOG SUB-Q SCH ×3 (08:30→17:44)
[2017-09-15] MEDS: GLUCOPHAGE PO SCH ×2 (08:55→16:06)
[2017-09-15] MEDS ORDERED: ZOFRAN IV PRN (09:17)
--- NOTE | 2017-09-15 09:18 | Progress Note ---
Assessment and Plan - Patient Problems (1) Colon cancer metastasized to multiple sites Current Visit: Yes Status: Ruled-out Plan to address problem: No definite evidence of multiple metastasis to lung or liver at this point. Repeat CT of the chest was reviewed extensively with Dr. Bradford and he is not convinced at this time that the lesion in the lung is a metastatic lesion. 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 (2) Altered mental status Current Visit: Yes Status: Resolved Qualifiers: Altered mental status type: transient alteration of awareness Qualified Code(s): R40.4 - Transient alteration of awareness Plan to address problem: Urgent with intermittent disorientation, we will review current medication (3) Fever Current Visit: Yes Status: Acute Qualifiers: Fever type: unspecified Qualified Code(s): R50.9 - Fever, unspecified Plan to address problem: Fever finally subsided patient has been afebrile in the last 48 hours and white cell is within normal range and patient is currently off antibiotics will continue to monitor (4) Hypertension Current Visit: Yes Status: Acute Qualifiers: Hypertension type: essential hypertension Qualified Code(s): I10 - Essential (primary) hypertension Plan to address problem: Blood pressures is fairly stable on current medication would maintain the same at this time (5) Type 2 diabetes mellitus without complications Current Visit: Yes Status: Acute Plan to address problem: Patient reported with Hypoglycemia this morning ,will hold long acting Insulin Levermir and continue sliding scale insulin for now (6) Deep vein blood clot of left lower extremity Current Visit: Yes Status: Acute Plan to address problem: Currently on IV heparin awaiting [place] filter placement by vascular surgery , we'll reconsult shouldn't now stable to proceed with IVC placement. (7) Anemia Current Visit: Yes Status: Acute Qualifiers: Iron deficiency anemia type: chronic blood loss (8) Abdominal pain Current Visit: Yes Status: Acute Qualifiers: Abdominal location: upper abdomen, unspecified Qualified Code(s): R10.10 - Upper abdominal pain, unspecified Plan to address problem: Withdrawal wound nausea vomiting will keep nothing by mouth for now. If no further emesis or he starts only with clear liquid in a.m. Intravenous antiemetics Zofran at this time it Subjective Date of service: 09/15/17 Principal diagnosis: fever from Pneumonia, ant abdomninal; vs abcess, acute DVT and PE Interval history: Patient seen and examined chart reviewed. Patient reported by nursing staff to have vomited this morning patient was also reports abdominal discomfort and poor appetite all day yesterday. Patient denied any chest pain or shortness of breath, no fever reported, had bowel movement this morning as well. Still feeling nauseated but no more emesis Objective - Exam Narrative Exam: GENERAL: Patient resting comfortably in bed, mildly pale but not jaundiced not in any acute distress. HEENT: Mucous membrane is moist, pharynx is clear. NECK: [No JVD, no thyroid enlargement and no lymphadenopathy.] CHEST/LUNGS: Reduced air exchange bibasally, a few rhonchi no wheezes no rales [No chest wall tenderness, percussion is normal, symmetrical chest wall.] HEART/CARDIOVASCULAR: [Regular rate and rhythm, S1 and S2 only, no murmur.] ABDOMEN: [Abdomen is soft, nondistended, multiple healed laparotomy scars no guarding, no rebound tenderness, , active bowel sounds.] SKIN: [Warm and dry, no rash.] NEURO: [Awake, alert, oriented x3, speech normal. ] EXTREMITIES: Pedal edema left lower extremity up to below the knee, no edema on the right, good peripheral pulses bilaterally no finger or toe clubbing. - Constitutional Vitals: Vital Signs - 12hr 09/14/17 09/14/17 09/14/17 21:15 21:44 22:00 Temperature Pulse Rate Respiratory 24 24 Rate Respiratory 24 Rate [Abdomen] Blood Pressure O2 Sat by Pulse 94 Oximetry 09/14/17 09/15/17 09/15/17 22:44 05:17 07:56 Temperature 99.5 F 98.8 F Pulse Rate 83 81 Respiratory 20 22 20 Rate Respiratory Rate [Abdomen] Blood Pressure 159/74 155/73 O2 Sat by Pulse 96 94 Oximetry - Labs CBC & Chem 7: 09/11/17 20:11 09/15/17 04:00 Labs: Abnormal lab results 09/14/17 09/14/17 09/14/17 Range/Units 08:34 11:28 15:33 BUN (9-20) mg/dL Glucose (75-100) mg/dL POC Glucose 205 H 205 H 187 H (70-105) 09/14/17 09/15/17 09/15/17 Range/Units 23:06 04:00 07:52 BUN 29 H (9-20) mg/dL Glucose 212 H (75-100) mg/dL POC Glucose 177 H 254 H (70-105)
[2017-09-15] MEDS: PULMICORT IH SCH ×2 (09:46→20:54)
[2017-09-15] MEDS: TENORMIN PO SCH ×2 (11:20→23:23)
[2017-09-15] MEDS: ZESTRIL PO SCH (11:21)
[2017-09-15] MEDS: CARDURA PO SCH ×2 (11:21→23:23)
[2017-09-15] MEDS: NORVASC PO SCH (11:22)
[2017-09-15] MEDS: PERIACTIN PO SCH ×2 (11:22→22:47)
[2017-09-15] MEDS: ZOFRAN IV PRN (11:30)
[2017-09-15] MEDS: ROXICODONE PO PRN (11:31)
--- NOTE | 2017-09-15 13:00 | Progress Note ---
Assessment and Plan - Patient Problems (1) Deep vein blood clot of left lower extremity Current Visit: Yes Status: Acute Plan to address problem: see below. no new issues at this time. See notes. (2) Colon cancer metastasized to multiple sites Current Visit: Yes Status: Ruled-out Plan to address problem: see notes. eventually will get chemo/xrt. once stable. (3) Lung mass Current Visit: Yes Status: Acute Plan to address problem: see notes. (4) Pulmonary embolism Current Visit: Yes Status: Acute Plan to address problem: anticoags. see notes. (5) DVT (deep venous thrombosis) Current Visit: Yes Status: Acute Qualifiers: Laterality: left Plan to address problem: anti coags. (6) Anemia Current Visit: Yes Status: Acute Qualifiers: Iron deficiency anemia type: chronic blood loss Plan to address problem: see notes. will transfuse. will repeat labs. Subjective Date of service: 09/15/17 Principal diagnosis: fever from Pneumonia, ant abdomninal; vs abcess, acute DVT and PE Interval history: Patient seen/examined, record reviewed, case d/w his daughter at the bed side.No procedure was done today. I have d/w DR BOYD today, and he will see patient .He is confused today, with some lethargy. Patient seen/examined, resting in bed, labs reviewed, notes reviewed. DR BOYD not available yet, so i am seeing patient today.No new issues at this time Patient seen/resting in bed, still some what confused.Notes reviewed, Lung lesion now ? for mets.I have updated DR BOYD today Patient seen/examined, labs reviewed.H/H 6.6 , I have spoken to his nurse, and will draw from a non heparin line Stat. Patient seen, resting in bed, labs reviewed. I have d/w the nurse, and will order PRBC. Patient seen/examined, resting in bed, labs reviewed, case d/w patient and family at the bed side. He is s/p 2uPRBC transfusion.He is scheduled for IVC Filter placement, after which he can be transitioned to oral anticoagulation. eloquis. he should be able to transfer to chair, and back to bed once Heparin in therapeutic range. Patient seen/examined, labs reviewed, case d/w patient, and family.IVC filter not placed, so patient restarted on his Heparin.once placed, then patient can be ab;e to move around. Patient seen/examined, ,resting in bed, family at the bed side, IVC filter placement was not done. for some unknown reason..I have discussed with DR Mirza this morning that once Filter placed, he may be d/c home to start chemo. Patient seen/examined, case d/w patient / at the bed side.I will speak with IR about Filter placement, so patient can proceed with chemo. Patient seen/examined, resting in bed, record reviewed, No IVC filter yet. Objective - Constitutional Vitals: Vital Signs - 12hr 09/15/17 09/15/17 09/15/17 05:17 07:56 09:46 Temperature 99.5 F 98.8 F Pulse Rate 83 81 Pulse Rate [ 82 Anterior Bilateral Throughout] Respiratory 22 20 Rate Respiratory 17 Rate [Anterior Bilateral Throughout] Blood Pressure 159/74 155/73 O2 Sat by Pulse 96 94 Oximetry 09/15/17 09/15/17 09/15/17 09:47 09:48 11:20 Temperature Pulse Rate 81 Pulse Rate [ 83 Anterior Bilateral Throughout] Respiratory Rate Respiratory 17 Rate [Anterior Bilateral Throughout] Blood Pressure 155/73 O2 Sat by Pulse 97 Oximetry 09/15/17 09/15/17 09/15/17 11:21 11:22 11:31 Temperature Pulse Rate 81 81 Pulse Rate [ Anterior Bilateral Throughout] Respiratory 20 Rate Respiratory Rate [Anterior Bilateral Throughout] Blood Pressure 155/73 155/73 O2 Sat by Pulse Oximetry General appearance: Present: mild distress - EENT Eyes: PERRL, EOM intact ENT: hearing intact, clear oral mucosa Ears: bilateral: normal - Neck Neck: supple, normal ROM - Respiratory Respiratory: bilateral: CTA - Cardiovascular Rhythm: regular Heart Sounds: Present: S1 & S2. Absent: gallop, rub Extremities: pulses intact, No edema, normal color, Full ROM - Gastrointestinal General gastrointestinal: Present: soft, non-tender, non-distended, normal bowel sounds - Genitourinary Male genitourinary: deferred - Integumentary Integumentary: clear, warm, dry - Musculoskeletal Musculoskeletal: 1, strength equal bilaterally - Neurologic Neurologic: moves all extremities - Psychiatric Psychiatric: memory intact, appropriate mood/affect, intact judgment & insight - Labs CBC & Chem 7: 09/11/17 20:11 09/15/17 04:00 Labs: Abnormal lab results 09/14/17 09/14/17 09/14/17 Range/Units 08:34 11:28 15:33 BUN (9-20) mg/dL Glucose (75-100) mg/dL POC Glucose 205 H 205 H 187 H (70-105) 09/14/17 09/15/17 09/15/17 Range/Units 23:06 04:00 07:52 BUN 29 H (9-20) mg/dL Glucose 212 H (75-100) mg/dL POC Glucose 177 H 254 H (70-105) 09/15/17 Range/Units 12:00 BUN (9-20) mg/dL Glucose (75-100) mg/dL POC Glucose 236 H (70-105)
[2017-09-15 14:04] LABS: Basophils % (Auto) 0.4 % (0.0-1.8); Eosinophils % (Auto) 0.9 % (0.0-4.3); Hematocrit 27.4 % (35.5-45.6); Hemoglobin 8.6 gm/dl (11.8-15.2); Mean Corpuscular HGB Conc 31 % (32-34); Mean Corpuscular Volume 81 fl (84-94); Platelet Count 261 K/mm3 (140-440); Red Blood Count 3.38 M/mm3 (3.65-5.03); Red Cell Distribution Width 19.7 % (13.2-15.2); White Blood Count 9.4 K/mm3 (4.5-11.0)
[2017-09-15 14:08] LABS: Mean Corpuscular Hemoglobin 26 pg (28-32)
[2017-09-15] MEDS: TYLENOL PO PRN (16:05)
[2017-09-15] MEDS ORDERED: TPN ADULT 2,016 ML IV SCH (20:00)
[2017-09-16] MEDS: NOVOLOG SUB-Q SCH ×5 (00:21→21:52)
[2017-09-16] MEDS: DUONEB *Not for PRN Use IH SCH ×4 (02:13→21:06)
[2017-09-16] MEDS: TYLENOL PO PRN (04:41)
[2017-09-16] MEDS: HEPARIN/ 0.45% NACL-25,000 UNIT/500 ML 25,000 UNIT/500 ML BAG IV SCH ×2 (06:27→21:26)
[2017-09-16 08:00] LABS: Anion Gap 17 mmol/L; BUN/Creatinine Ratio 34; Blood Urea Nitrogen 44 mg/dL (9-20); Calcium 8.8 mg/dL (8.4-10.2); Carbon Dioxide 26 mmol/L (22-30); Chloride 99.4 mmol/L (98-107); Glucose 159 mg/dL (75-100); Sodium 137 mmol/L (137-145)
[2017-09-16] MEDS: PULMICORT IH SCH ×2 (08:42→21:05)
--- NOTE | 2017-09-16 09:03 | Progress Note ---
Assessment and Plan - Patient Problems (1) Colon cancer metastasized to multiple sites Current Visit: Yes Status: Ruled-out Plan to address problem: No definite evidence of multiple metastasis to lung or liver at this point. Repeat CT of the chest was reviewed extensively with Dr. Bradford and he is not convinced at this time that the lesion in the lung is a metastatic lesion. 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 (2) Altered mental status Current Visit: Yes Status: Resolved Qualifiers: Altered mental status type: transient alteration of awareness Qualified Code(s): R40.4 - Transient alteration of awareness Plan to address problem: Urgent with intermittent disorientation, we will review current medication (3) Fever Current Visit: Yes Status: Acute Qualifiers: Fever type: unspecified Qualified Code(s): R50.9 - Fever, unspecified Plan to address problem: Fever finally subsided patient has been afebrile in the last 48 hours and white cell is within normal range and patient is currently off antibiotics will continue to monitor (4) Hypertension Current Visit: Yes Status: Acute Qualifiers: Hypertension type: essential hypertension Qualified Code(s): I10 - Essential (primary) hypertension Plan to address problem: Blood pressures is fairly stable on current medication would maintain the same at this time (5) Type 2 diabetes mellitus without complications Current Visit: Yes Status: Acute Plan to address problem: Patient reported with Hypoglycemia this morning ,will hold long acting Insulin Levermir and continue sliding scale insulin for now (6) Deep vein blood clot of left lower extremity Current Visit: Yes Status: Acute Plan to address problem: Currently on IV heparin awaiting [place] filter placement by vascular surgery , we'll reconsult now stable to proceed with IVC placement. Patient is to be seen by vascular surgery will reconsult contact them to proceed with IVC filter placement. (7) Anemia Current Visit: Yes Status: Acute Qualifiers: Iron deficiency anemia type: chronic blood loss Plan to address problem: Hemoglobin noted is a 8.6 status post transfusion of 2 units of packed red blood cells will continue to monitor H&H (8) Abdominal pain Current Visit: Yes Status: Acute Qualifiers: Abdominal location: upper abdomen, unspecified Qualified Code(s): R10.10 - Upper abdominal pain, unspecified Plan to address problem: Nausea vomiting subsided will restart patient on clear liquids only for now and advance as tolerated Subjective Date of service: 09/16/17 Principal diagnosis: fever from Pneumonia, ant abdomninal; vs abcess, acute DVT and PE Interval history: Patient seen and examined chart reviewed, patient's in the room assist patient denied any new complains at this time. No nausea or vomiting reported since yesterday morning and no fever reported by nursing staff, patient is still nothing by mouth at this time due to nausea and vomiting yesterday Objective - Exam Narrative Exam: GENERAL: Patient resting comfortably in bed, mildly pale but not jaundiced not in any acute distress. HEENT: Mucous membrane is moist, pharynx is clear. NECK: [No JVD, no thyroid enlargement and no lymphadenopathy.] CHEST/LUNGS: Reduced air exchange bibasally, a few rhonchi no wheezes no rales [No chest wall tenderness, percussion is normal, symmetrical chest wall.] HEART/CARDIOVASCULAR: [Regular rate and rhythm, S1 and S2 only, no murmur.] ABDOMEN: [Abdomen is soft, nondistended, multiple healed laparotomy scars no guarding, no rebound tenderness, , active bowel sounds.] SKIN: [Warm and dry, no rash.] NEURO: [Awake, alert, oriented x3, speech normal. ] EXTREMITIES: Pedal edema left lower extremity up to below the knee, no edema on the right, good peripheral pulses bilaterally no finger or toe clubbing. - Constitutional Vitals: Vital Signs - 12hr 09/15/17 09/15/17 09/16/17 22:00 23:23 02:10 Temperature Pulse Rate 80 Pulse Rate [ 80 Anterior Bilateral Throughout] Respiratory Rate Respiratory 16 Rate [Anterior Bilateral Throughout] Blood Pressure 113/54 O2 Sat by Pulse 94 Oximetry 09/16/17 09/16/17 09/16/17 02:17 04:00 06:49 Temperature 101.7 F H 99.4 F Pulse Rate 74 Pulse Rate [ 82 Anterior Bilateral Throughout] Respiratory 22 Rate Respiratory 16 Rate [Anterior Bilateral Throughout] Blood Pressure 112/53 O2 Sat by Pulse 96 Oximetry 09/16/17 09/16/17 09/16/17 07:41 08:40 08:57 Temperature 99.7 F H Pulse Rate 69 Pulse Rate [ 68 65 Anterior Bilateral Throughout] Respiratory 20 Rate Respiratory 24 22 Rate [Anterior Bilateral Throughout] Blood Pressure 114/55 O2 Sat by Pulse 96 93 Oximetry - Labs CBC & Chem 7: 09/15/17 13:28 09/16/17 07:28 Labs: Abnormal lab results 09/15/17 09/15/17 09/15/17 Range/Units 12:00 13:28 17:07 RBC 3.38 L (3.65-5.03) M/mm3 Hgb 8.6 L (11.8-15.2) gm/dl Hct 27.4 L (35.5-45.6) % MCV 81 L (84-94) fl MCH 26 L (28-32) pg MCHC 31 L (32-34) % RDW 19.7 H (13.2-15.2) % Seg Neutrophils % 70.1 H (40.0-70.0) % BUN (9-20) mg/dL Glucose (75-100) mg/dL POC Glucose 236 H 203 H (70-105) 09/15/17 09/15/17 09/16/17 Range/Units 17:58 22:42 07:28 RBC (3.65-5.03) M/mm3 Hgb (11.8-15.2) gm/dl Hct (35.5-45.6) % MCV (84-94) fl MCH (28-32) pg MCHC (32-34) % RDW (13.2-15.2) % Seg Neutrophils % (40.0-70.0) % BUN 44 H (9-20) mg/dL Glucose 159 H (75-100) mg/dL POC Glucose 208 H 171 H (70-105) 09/16/17 Range/Units 07:44 RBC (3.65-5.03) M/mm3 Hgb (11.8-15.2) gm/dl Hct (35.5-45.6) % MCV (84-94) fl MCH (28-32) pg MCHC (32-34) % RDW (13.2-15.2) % Seg Neutrophils % (40.0-70.0) % BUN (9-20) mg/dL Glucose (75-100) mg/dL POC Glucose 172 H (70-105)
[2017-09-16] MEDS: GLUCOPHAGE PO SCH ×2 (09:05→17:15)
[2017-09-16] MEDS: TENORMIN PO SCH ×2 (10:21→21:43)
[2017-09-16] MEDS: NORVASC PO SCH (10:21)
[2017-09-16] MEDS: CARDURA PO SCH ×2 (10:21→21:50)
[2017-09-16] MEDS: ZESTRIL PO SCH (10:22)
[2017-09-16] MEDS: PERIACTIN PO SCH ×2 (10:23→21:50)
--- NOTE | 2017-09-16 15:40 | Progress Note ---
Assessment and Plan 66-year-old male with right-sided pulmonary embolism, with right upper extremity DVT associated with PICC line , and left lower extremity DVT in a patient with nonoperable colon cancer. The patient was on Coumadin and had these thromboembolic events while on anticoagulation. Unfortunately, Coumadin is not effective in reducing the incidence of DVT in the setting of malignancy. Guidelines recommend Lovenox injections twice a day to prevent additional thromboembolic events. If the patient develops a new thromboembolic event while on Lovenox injections, then recommend IVC filter. The patient is currently going to receive chemoradiation for his nonoperable colon cancer. If there were plans for operative treatment, then recommend IVC filter. In the current clinical setting, recommend Lovenox injections twice a day. Please contact [facility] vascular specialist if the clinical situation changes and IVC filter may be warranted at that time. This was discussed with Dr. Burgess, Dr. Mirza, and the patient's family. Subjective Date of service: 09/16/17 Principal diagnosis: fever from Pneumonia, ant abdomninal; vs abcess, acute DVT and PE Interval history: Laying in bed, tired, responds to questions, no complaints Objective - Constitutional Vitals: Vital Signs - 12hr 09/16/17 09/16/17 09/16/17 04:00 06:49 07:41 Temperature 101.7 F H 99.4 F 99.7 F H Pulse Rate 74 69 Pulse Rate [ Anterior Bilateral Throughout] Respiratory 22 20 Rate Respiratory Rate [Anterior Bilateral Throughout] Blood Pressure 112/53 114/55 O2 Sat by Pulse 96 96 Oximetry 09/16/17 09/16/17 09/16/17 08:40 08:57 10:21 Temperature Pulse Rate 69 Pulse Rate [ 68 65 Anterior Bilateral Throughout] Respiratory Rate Respiratory 24 22 Rate [Anterior Bilateral Throughout] Blood Pressure 114/55 O2 Sat by Pulse 93 Oximetry 09/16/17 09/16/17 10:22 13:29 Temperature 98.6 F Pulse Rate 69 76 Pulse Rate [ Anterior Bilateral Throughout] Respiratory 18 Rate Respiratory Rate [Anterior Bilateral Throughout] Blood Pressure 114/55 122/62 O2 Sat by Pulse 97 Oximetry General appearance: Present: no acute distress - EENT Eyes: EOM intact ENT: hearing intact - Respiratory Respiratory effort: other (on NC) - Labs CBC & Chem 7: 09/15/17 13:28 09/16/17 07:28 Labs: Abnormal lab results 09/15/17 09/15/17 09/15/17 Range/Units 17:07 17:58 22:42 BUN (9-20) mg/dL Glucose (75-100) mg/dL POC Glucose 203 H 208 H 171 H (70-105) 09/16/17 09/16/17 09/16/17 Range/Units 07:28 07:44 11:45 BUN 44 H (9-20) mg/dL Glucose 159 H (75-100) mg/dL POC Glucose 172 H 190 H (70-105)
[2017-09-16] MEDS ORDERED: TPN ADULT 2,016 ML IV SCH (20:00)
[2017-09-16] MEDS ORDERED: INTRALIPID 20% 250 ML IV SCH (20:00)
--- NOTE | 2017-09-16 21:11 | Progress Note ---
Assessment and Plan - Patient Problems (1) Deep vein blood clot of left lower extremity Current Visit: Yes Status: Acute Plan to address problem: see below. no new issues at this time. See notes. (2) Colon cancer metastasized to multiple sites Current Visit: Yes Status: Ruled-out Plan to address problem: see notes. eventually will get chemo/xrt. once stable. (3) Lung mass Current Visit: Yes Status: Acute Plan to address problem: see notes. (4) Pulmonary embolism Current Visit: Yes Status: Acute Plan to address problem: anticoags. see notes. (5) DVT (deep venous thrombosis) Current Visit: Yes Status: Acute Qualifiers: Laterality: left Plan to address problem: anti coags. (6) Anemia Current Visit: Yes Status: Acute Qualifiers: Iron deficiency anemia type: chronic blood loss Plan to address problem: see notes. will transfuse. will repeat labs. Subjective Date of service: 09/16/17 Principal diagnosis: fever from Pneumonia, ant abdomninal; vs abcess, acute DVT and PE Interval history: Patient seen/examined, record reviewed, case d/w his daughter at the bed side.No procedure was done today. I have d/w DR BOYD today, and he will see patient .He is confused today, with some lethargy. Patient seen/examined, resting in bed, labs reviewed, notes reviewed. DR BOYD not available yet, so i am seeing patient today.No new issues at this time Patient seen/resting in bed, still some what confused.Notes reviewed, Lung lesion now ? for mets.I have updated DR BOYD today Patient seen/examined, labs reviewed.H/H 6.6 , I have spoken to his nurse, and will draw from a non heparin line Stat. Patient seen, resting in bed, labs reviewed. I have d/w the nurse, and will order PRBC. Patient seen/examined, resting in bed, labs reviewed, case d/w patient and family at the bed side. He is s/p 2uPRBC transfusion.He is scheduled for IVC Filter placement, after which he can be transitioned to oral anticoagulation. eloquis. he should be able to transfer to chair, and back to bed once Heparin in therapeutic range. Patient seen/examined, labs reviewed, case d/w patient, and family.IVC filter not placed, so patient restarted on his Heparin.once placed, then patient can be ab;e to move around. Patient seen/examined, ,resting in bed, family at the bed side, IVC filter placement was not done. for some unknown reason..I have discussed with DR Mirza this morning that once Filter placed, he may be d/c home to start chemo. Patient seen/examined, case d/w patient / at the bed side.I will speak with IR about Filter placement, so patient can proceed with chemo. Patient seen/examined, resting in bed, record reviewed, No IVC filter yet. Patient seen/examined, case d/w him, and family. I had spoken to DR LOJA, and the conclusion was that patient will be switched to LMWH tx dose for probably indefinite, but if any surgical procedure is intended, or there is another thrombotic event, then he will get an IVC filter.I will d/w DR Mirza tomorrow, and if he can be d/c soon so he can get ready for chemo. Objective - Constitutional Vitals: Vital Signs - 12hr 09/16/17 09/16/17 09/16/17 10:00 10:21 10:22 Temperature Pulse Rate 69 69 Pulse Rate [ Anterior Bilateral Throughout] Pulse Rate [ Anterior Left Throughout] Respiratory 20 Rate Respiratory Rate [Anterior Bilateral Throughout] Respiratory Rate [Anterior Left Throughout ] Blood Pressure 114/55 114/55 O2 Sat by Pulse 95 Oximetry 09/16/17 09/16/17 09/16/17 13:29 15:45 16:05 Temperature 98.6 F Pulse Rate 76 Pulse Rate [ 72 Anterior Bilateral Throughout] Pulse Rate [ 77 Anterior Left Throughout] Respiratory 18 Rate Respiratory 20 Rate [Anterior Bilateral Throughout] Respiratory 24 Rate [Anterior Left Throughout ] Blood Pressure 122/62 O2 Sat by Pulse 97 Oximetry General appearance: Present: no acute distress - EENT Eyes: PERRL, EOM intact ENT: hearing intact, clear oral mucosa Ears: bilateral: normal - Neck Neck: supple, normal ROM - Respiratory Respiratory effort: normal Respiratory: bilateral: CTA - Cardiovascular Rhythm: regular Heart Sounds: Present: S1 & S2. Absent: gallop, rub Extremities: pulses intact, No edema, normal color, Full ROM - Gastrointestinal General gastrointestinal: Present: deferred, soft, non-tender, non-distended, normal bowel sounds Rectal Exam: deferred - Genitourinary Male genitourinary: deferred - Integumentary Integumentary: clear, warm, dry - Musculoskeletal Musculoskeletal: 1, strength equal bilaterally - Neurologic Neurologic: moves all extremities - Psychiatric Psychiatric: memory intact, appropriate mood/affect, intact judgment & insight - Labs CBC & Chem 7: 09/15/17 13:28 09/16/17 07:28 Labs: Abnormal lab results 09/15/17 09/16/17 09/16/17 Range/Units 22:42 07:28 07:44 BUN 44 H (9-20) mg/dL Glucose 159 H (75-100) mg/dL POC Glucose 171 H 172 H (70-105) 09/16/17 09/16/17 Range/Units 11:45 16:41 BUN (9-20) mg/dL Glucose (75-100) mg/dL POC Glucose 190 H 186 H (70-105)
[2017-09-17] MEDS: TYLENOL PO PRN (00:47)
[2017-09-17] MEDS: NORCO PO PRN (01:48)
[2017-09-17] MEDS ORDERED: NACL 0.9% 500 ML 500 ML IV ONE ×2 (02:05→12:00)
[2017-09-17 05:38] LABS: Anion Gap 17 mmol/L; BUN/Creatinine Ratio 45; Blood Urea Nitrogen 45 mg/dL (9-20); Calcium 8.9 mg/dL (8.4-10.2); Carbon Dioxide 24 mmol/L (22-30); Chloride 100.8 mmol/L (98-107); Glucose 166 mg/dL (75-100); Sodium 138 mmol/L (137-145)
[2017-09-17 06:05] LABS: Hematocrit 22.7 % (35.5-45.6); Hemoglobin 7.3 gm/dl (11.8-15.2)
[2017-09-17] MEDS: DUONEB *Not for PRN Use IH SCH ×3 (07:45→19:48)
[2017-09-17] MEDS: PULMICORT IH SCH ×2 (07:45→19:48)
[2017-09-17] MEDS: TENORMIN PO SCH ×2 (09:18→22:08)
[2017-09-17] MEDS: NOVOLOG SUB-Q SCH ×4 (09:18→22:27)
[2017-09-17] MEDS: CARDURA PO SCH ×2 (09:19→22:10)
[2017-09-17] MEDS: GLUCOPHAGE PO SCH ×2 (09:20→16:50)
[2017-09-17] MEDS: ZESTRIL PO SCH (09:20)
[2017-09-17] MEDS: NORVASC PO SCH (09:20)
--- NOTE | 2017-09-17 09:32 | Progress Note ---
Assessment and Plan - Abdominal mass: Malignant vs adhesion. There was no evidence of met per review of recent CT abdomen and previous PET scam 06/2017. However CT chest showed hilar mass not a metastatic lesion per radiologist - Acute hypoxemic respiratory failure: On supplemental oxygen with bronchodilators - Anemia: Started having rectal bleeding last night. of chronic disease. Will Transfuse one unit - Fever likely from anterior abdominal wall abscess vs fistula: T max 98.5 F. Blood cx yielded no growth so far. Continue iv antibx per ID. IR consult for possible drainage. - History of colon cancer: s/p colon resection wiht another abdominal surgery, 07/2017, that showed no evidence of mets rather an intaabdominal mass for which a diversion was made to relieve intestinal obstruction - DM: Consistent carbohydrate meal and SSI - DVT with Acute PE. left common femoral vein and right pulm art: Cont with lovenox. However withll hold for recent GI bleeding. - Metabolic encephaliopathy: improving - GI prophyalxis with Pepcid Subjective Date of service: 09/17/17 Principal diagnosis: fever from Pneumonia, ant abdomninal; vs abcess, acute DVT and PE Interval history: Started passing bright red blood per rectum last night. No hematemesis. Had had nausea and vomiting x two yesterday Objective - Constitutional Vitals: Vital Signs - 12hr 09/17/17 09/17/17 09/17/17 04:34 07:50 09:18 Temperature 99.2 F 99.4 F Pulse Rate 78 79 79 Respiratory 18 18 Rate Blood Pressure 139/68 144/72 144/72 O2 Sat by Pulse 98 95 Oximetry 09/17/17 09/17/17 09:19 09:20 Temperature Pulse Rate 79 79 Respiratory Rate Blood Pressure 144/72 144/72 O2 Sat by Pulse Oximetry General appearance: Present: no acute distress, well-nourished - EENT Eyes: PERRL, EOM intact - Neck Neck: supple, normal ROM - Respiratory Respiratory effort: normal Respiratory: bilateral: diminished - Cardiovascular Rhythm: regular Heart Sounds: Present: S1 & S2. Absent: gallop, rub Extremities: pulses intact, No edema, normal color, Full ROM - Gastrointestinal General gastrointestinal: Present: soft, non-tender, non-distended, normal bowel sounds - Integumentary Integumentary: clear, warm, dry - Musculoskeletal Musculoskeletal: 1, strength equal bilaterally - Neurologic Neurologic: moves all extremities - Psychiatric Psychiatric: memory intact, appropriate mood/affect, intact judgment & insight - Labs CBC & Chem 7: 09/17/17 05:27 09/17/17 04:30 Labs: Abnormal lab results 09/16/17 09/16/17 09/16/17 Range/Units 11:45 16:41 21:41 Hgb (11.8-15.2) gm/dl Hct (35.5-45.6) % BUN (9-20) mg/dL Glucose (75-100) mg/dL POC Glucose 190 H 186 H 137 H (70-105) Crossmatch 09/17/17 09/17/17 09/17/17 Range/Units 04:30 04:40 05:27 Hgb 7.3 L (11.8-15.2) gm/dl Hct 22.7 L (35.5-45.6) % BUN 45 H (9-20) mg/dL Glucose 166 H (75-100) mg/dL POC Glucose (70-105) Crossmatch See Detail 09/17/17 Range/Units 07:54 Hgb (11.8-15.2) gm/dl Hct (35.5-45.6) % BUN (9-20) mg/dL Glucose (75-100) mg/dL POC Glucose 189 H (70-105) Crossmatch
[2017-09-17] MEDS: PERIACTIN PO SCH ×2 (11:59→22:11)
[2017-09-17] MEDS: ZOFRAN IV PRN ×2 (11:59→16:51)
[2017-09-17] MEDS ORDERED: WATER FOR INJ (PF) 10 ML ONE (16:48)
[2017-09-17] MEDS: PROTONIX IV SCH ×2 (16:51→22:08)
[2017-09-17] MEDS ORDERED: TPN ADULT 2,016 ML IV SCH (20:00)
[2017-09-18] MEDS: DUONEB *Not for PRN Use IH SCH ×4 (02:42→21:35)
[2017-09-18] MEDS: PULMICORT IH SCH ×2 (07:28→21:35)
[2017-09-18 07:57] LABS: Basophils % (Auto) 0.5 % (0.0-1.8); Eosinophils % (Auto) 0.6 % (0.0-4.3); Hematocrit 32.9 % (35.5-45.6); Mean Corpuscular HGB Conc 33 % (32-34); Mean Corpuscular Hemoglobin 28 pg (28-32); Mean Corpuscular Volume 83 fl (84-94); Platelet Count 257 K/mm3 (140-440); Red Blood Count 3.95 M/mm3 (3.65-5.03); Red Cell Distribution Width 19.3 % (13.2-15.2); White Blood Count 8.2 K/mm3 (4.5-11.0)
[2017-09-18 08:13] LABS: Alanine Aminotransferase 35 units/L (7-56); Albumin 2.2 g/dL (3.9-5); Albumin/Globulin Ratio 0.5 %; Alkaline Phosphatase 80 units/L (35-129); Anion Gap 16 mmol/L; BUN/Creatinine Ratio 41; Blood Urea Nitrogen 37 mg/dL (9-20); Calcium 8.7 mg/dL (8.4-10.2); Carbon Dioxide 23 mmol/L (22-30); Chloride 102.9 mmol/L (98-107); Glucose 275 mg/dL (75-100); Potassium 4.1 mmol/L (3.6-5.0); Sodium 138 mmol/L (137-145); Total Protein 6.6 g/dL (6.3-8.2)
[2017-09-18 08:40] LABS: Magnesium 1.9 mg/dL (1.7-2.3); Phosphorous 3.1 mg/dL (2.5-4.5)
[2017-09-18] MEDS ORDERED: WATER FOR INJ (PF) 10 ML ONE (08:45)
[2017-09-18] MEDS: NOVOLOG SUB-Q SCH ×4 (08:52→22:40)
[2017-09-18] MEDS: TENORMIN PO SCH ×3 (08:53→22:58)
[2017-09-18] MEDS: PERIACTIN PO SCH ×3 (08:55→22:57)
[2017-09-18] MEDS: ZESTRIL PO SCH ×2 (08:56→10:00)
[2017-09-18] MEDS: PROTONIX IV SCH ×3 (08:56→22:55)
[2017-09-18] MEDS: NORVASC PO SCH ×2 (08:57→10:00)
[2017-09-18] MEDS: GLUCOPHAGE PO SCH ×2 (08:57→18:38)
[2017-09-18] MEDS: CARDURA PO SCH ×3 (08:58→22:57)
[2017-09-18] MEDS: ROXICODONE PO PRN (09:02)
[2017-09-18] MEDS: ZOFRAN IV PRN (09:10)
[2017-09-18 10:38] LABS: Hematocrit 33.3 % (35.5-45.6); Hemoglobin 10.8 gm/dl (11.8-15.2)
--- NOTE | 2017-09-18 15:05 | Progress Note ---
Assessment and Plan - GI bleeding with anemia of 7.3 now improved to 11. s/p blood transfusion. Hemodynamically stable. Holding anticoagulation. Discussed risk benefit with pts' . GI consult - Abdominal mass: Malignant vs adhesion. There was no evidence of met per review of recent CT abdomen and previous PET scam 06/2017. However CT chest showed hilar mass not a metastatic lesion per radiologist - Acute hypoxemic respiratory failure: On supplemental oxygen with bronchodilators - Anemia: Started having rectal bleeding last night. of chronic disease and recent GI bleeding Will Transfuse one unit - History of colon cancer: s/p colon resection wiht another abdominal surgery, 07/2017, that showed no evidence of mets rather an intaabdominal mass for which a diversion was made to relieve intestinal obstruction - DM: Consistent carbohydrate meal and SSI - DVT with Acute PE. left common femoral vein and right pulm art: Cont with lovenox. However withll hold for recent GI bleeding. - Metabolic encephaliopathy: improving - GI prophyalxis with Pepcid Subjective Date of service: 09/18/17 Principal diagnosis: fever from Pneumonia, ant abdomninal; vs abcess, acute DVT and PE Interval history: Still passing melena stool per pt who is in the room. Vomited coffe ground emesis today. No fever. Still hemodynamically stable with HP 80s and normal BP Objective - Constitutional Vitals: Vital Signs - 12hr 09/18/17 09/18/17 09/18/17 07:24 07:25 07:38 Temperature 99.9 F H Pulse Rate 78 Pulse Rate [ 80 Anterior Bilateral Throughout] Respiratory 18 Rate Respiratory 20 Rate [Anterior Bilateral Throughout] Blood Pressure Blood Pressure 153/75 [Right] O2 Sat by Pulse 97 98 Oximetry 09/18/17 09/18/17 09/18/17 07:41 08:53 08:56 Temperature Pulse Rate 80 80 Pulse Rate [ 810 H Anterior Bilateral Throughout] Respiratory Rate Respiratory 20 Rate [Anterior Bilateral Throughout] Blood Pressure 153/75 153/75 Blood Pressure [Right] O2 Sat by Pulse Oximetry 09/18/17 08:57 Temperature Pulse Rate 80 Pulse Rate [ Anterior Bilateral Throughout] Respiratory Rate Respiratory Rate [Anterior Bilateral Throughout] Blood Pressure 153/75 Blood Pressure [Right] O2 Sat by Pulse Oximetry General appearance: Present: no acute distress, well-nourished - EENT Eyes: PERRL, EOM intact Ears: bilateral: normal - Neck Neck: supple, normal ROM - Respiratory Respiratory effort: normal Respiratory: bilateral: CTA - Breasts Breasts: normal - Cardiovascular Rhythm: regular Heart Sounds: Present: S1 & S2. Absent: gallop, rub Extremities: pulses intact, No edema, normal color, Full ROM - Gastrointestinal General gastrointestinal: Present: soft, non-tender, non-distended, normal bowel sounds - Genitourinary Male genitourinary: normal - Integumentary Integumentary: clear, warm, dry - Musculoskeletal Musculoskeletal: 1, strength equal bilaterally - Neurologic Neurologic: moves all extremities - Psychiatric Psychiatric: memory intact, appropriate mood/affect, intact judgment & insight - Labs CBC & Chem 7: 09/18/17 Unknown 09/18/17 Unknown Labs: Abnormal lab results 09/17/17 09/17/17 09/17/17 Range/Units 04:40 16:28 22:27 Hgb (11.8-15.2) gm/dl Hct (35.5-45.6) % MCV (84-94) fl RDW (13.2-15.2) % BUN (9-20) mg/dL Glucose (75-100) mg/dL POC Glucose 158 H 174 H (70-105) Albumin (3.9-5) g/dL Crossmatch See Detail 09/18/17 09/18/17 09/18/17 Range/Units 07:18 11:52 Unknown Hgb 10.8 L (11.8-15.2) gm/dl Hct 33.3 L (35.5-45.6) % MCV (84-94) fl RDW (13.2-15.2) % BUN (9-20) mg/dL Glucose (75-100) mg/dL POC Glucose 314 H 312 H (70-105) Albumin (3.9-5) g/dL Crossmatch 09/18/17 09/18/17 Range/Units Unknown Unknown Hgb 11.0 L D (11.8-15.2) gm/dl Hct 32.9 L D (35.5-45.6) % MCV 83 L (84-94) fl RDW 19.3 H (13.2-15.2) % BUN 37 H (9-20) mg/dL Glucose 275 H (75-100) mg/dL POC Glucose (70-105) Albumin 2.2 L (3.9-5) g/dL Crossmatch
--- NOTE | 2017-09-18 19:24 | Progress Note ---
Assessment and Plan - Patient Problems (1) Deep vein blood clot of left lower extremity Current Visit: Yes Status: Acute Plan to address problem: see below. no new issues at this time. See notes. (2) Colon cancer metastasized to multiple sites Current Visit: Yes Status: Ruled-out Plan to address problem: see notes. eventually will get chemo/xrt. once stable. (3) Lung mass Current Visit: Yes Status: Acute Plan to address problem: see notes. (4) Pulmonary embolism Current Visit: Yes Status: Acute Plan to address problem: anticoags. see notes. (5) DVT (deep venous thrombosis) Current Visit: Yes Status: Acute Qualifiers: Laterality: left Plan to address problem: anti coags. (6) Anemia Current Visit: Yes Status: Acute Qualifiers: Iron deficiency anemia type: chronic blood loss Plan to address problem: see notes. will transfuse. will repeat labs. Subjective Date of service: 09/18/17 Principal diagnosis: fever from Pneumonia, ant abdomninal; vs abcess, acute DVT and PE Interval history: Patient seen/examined, record reviewed, case d/w his daughter at the bed side.No procedure was done today. I have d/w DR BOYD today, and he will see patient .He is confused today, with some lethargy. Patient seen/examined, resting in bed, labs reviewed, notes reviewed. DR BOYD not available yet, so i am seeing patient today.No new issues at this time Patient seen/resting in bed, still some what confused.Notes reviewed, Lung lesion now ? for mets.I have updated DR BOYD today Patient seen/examined, labs reviewed.H/H 6.6 , I have spoken to his nurse, and will draw from a non heparin line Stat. Patient seen, resting in bed, labs reviewed. I have d/w the nurse, and will order PRBC. Patient seen/examined, resting in bed, labs reviewed, case d/w patient and family at the bed side. He is s/p 2uPRBC transfusion.He is scheduled for IVC Filter placement, after which he can be transitioned to oral anticoagulation. eloquis. he should be able to transfer to chair, and back to bed once Heparin in therapeutic range. Patient seen/examined, labs reviewed, case d/w patient, and family.IVC filter not placed, so patient restarted on his Heparin.once placed, then patient can be ab;e to move around. Patient seen/examined, ,resting in bed, family at the bed side, IVC filter placement was not done. for some unknown reason..I have discussed with DR Mirza this morning that once Filter placed, he may be d/c home to start chemo. Patient seen/examined, case d/w patient / at the bed side.I will speak with IR about Filter placement, so patient can proceed with chemo. Patient seen/examined, resting in bed, record reviewed, No IVC filter yet. Patient seen/examined, case d/w him, and family. I had spoken to DR LOJA, and the conclusion was that patient will be switched to LMWH tx dose for probably indefinite, but if any surgical procedure is intended, or there is another thrombotic event, then he will get an IVC filter.I will d/w DR Mirza tomorrow, and if he can be d/c soon so he can get ready for chemo. Patient seen/examined, resting in bed, appears slightly lethargic, at the bed side, case d/w both, and with the primary team, Dr Lewis. Patient having GI bleed actively, heparin on hold now for 2days. patient also having projectile emesis bile like. I think that due to this new development, Patient can not be on anticoagulation,and he still remains pro thrombotic. This will make him a candidate for an alternative measure such as an IVC filter..Any major procedure such as GI scope can can even result in thrombotic event.He will need abdominal imaging also to r/o obstruction. Objective - Constitutional Vitals: Vital Signs - 12hr 09/18/17 09/18/17 09/18/17 07:24 07:25 07:38 Temperature 99.9 F H Pulse Rate 78 Pulse Rate [ 80 Anterior Bilateral Throughout] Respiratory 18 Rate Respiratory 20 Rate [Anterior Bilateral Throughout] Blood Pressure Blood Pressure 153/75 [Right] O2 Sat by Pulse 97 98 Oximetry 09/18/17 09/18/17 09/18/17 07:41 08:53 08:56 Temperature Pulse Rate 80 80 Pulse Rate [ 810 H Anterior Bilateral Throughout] Respiratory Rate Respiratory 20 Rate [Anterior Bilateral Throughout] Blood Pressure 153/75 153/75 Blood Pressure [Right] O2 Sat by Pulse Oximetry 09/18/17 09/18/17 08:57 15:06 Temperature 97.6 F Pulse Rate 80 72 Pulse Rate [ Anterior Bilateral Throughout] Respiratory 18 Rate Respiratory Rate [Anterior Bilateral Throughout] Blood Pressure 153/75 132/62 Blood Pressure [Right] O2 Sat by Pulse 100 Oximetry General appearance: Present: mild distress, well-nourished - EENT Eyes: PERRL, EOM intact ENT: hearing intact, clear oral mucosa Ears: bilateral: normal - Neck Neck: supple, normal ROM - Respiratory Respiratory effort: normal Respiratory: bilateral: CTA - Cardiovascular Rhythm: regular Heart Sounds: Present: S1 & S2. Absent: gallop, rub Extremities: pulses intact, No edema, normal color, Full ROM - Gastrointestinal General gastrointestinal: Present: soft, non-tender, non-distended, normal bowel sounds Rectal Exam: deferred - Genitourinary Male genitourinary: deferred - Integumentary Integumentary: clear, warm, dry - Musculoskeletal Musculoskeletal: 1, strength equal bilaterally - Neurologic Neurologic: moves all extremities - Psychiatric Psychiatric: appropriate mood/affect - Labs CBC & Chem 7: 09/18/17 Unknown 09/18/17 Unknown Labs: Abnormal lab results 09/17/17 09/17/17 09/18/17 Range/Units 04:40 22:27 07:18 Hgb (11.8-15.2) gm/dl Hct (35.5-45.6) % MCV (84-94) fl RDW (13.2-15.2) % BUN (9-20) mg/dL Glucose (75-100) mg/dL POC Glucose 174 H 314 H (70-105) Albumin (3.9-5) g/dL Crossmatch See Detail 09/18/17 09/18/17 09/18/17 Range/Units 11:52 16:49 Unknown Hgb 10.8 L (11.8-15.2) gm/dl Hct 33.3 L (35.5-45.6) % MCV (84-94) fl RDW (13.2-15.2) % BUN (9-20) mg/dL Glucose (75-100) mg/dL POC Glucose 312 H 235 H (70-105) Albumin (3.9-5) g/dL Crossmatch 09/18/17 09/18/17 Range/Units Unknown Unknown Hgb 11.0 L D (11.8-15.2) gm/dl Hct 32.9 L D (35.5-45.6) % MCV 83 L (84-94) fl RDW 19.3 H (13.2-15.2) % BUN 37 H (9-20) mg/dL Glucose 275 H (75-100) mg/dL POC Glucose (70-105) Albumin 2.2 L (3.9-5) g/dL Crossmatch
[2017-09-18] MEDS ORDERED: TPN ADULT 2,016 ML IV SCH (20:00)
[2017-09-19] MEDS: DUONEB *Not for PRN Use IH SCH ×3 (01:15→22:51)
[2017-09-19] MEDS: NORCO PO PRN ×2 (05:33→18:53)
[2017-09-19] MEDS ORDERED: WATER FOR INJ (PF) 10 ML ONE (09:02)
--- NOTE | 2017-09-19 09:08 | Progress Note ---
Assessment and Plan - Patient Problems (1) Colon cancer metastasized to multiple sites Current Visit: Yes Status: Ruled-out Plan to address problem: No definite evidence of multiple metastasis to lung or liver at this point. Repeat CT of the chest was reviewed extensively with Dr. Bradford and he is not convinced at this time that the lesion in the lung is a metastatic lesion. 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 (2) Altered mental status Current Visit: Yes Status: Resolved Qualifiers: Altered mental status type: transient alteration of awareness Qualified Code(s): R40.4 - Transient alteration of awareness Plan to address problem: Urgent with intermittent disorientation, we will review current medication (3) Fever Current Visit: Yes Status: Acute Qualifiers: Fever type: unspecified Qualified Code(s): R50.9 - Fever, unspecified Plan to address problem: Fever finally subsided patient has been afebrile in the last 48 hours and white cell is within normal range and patient is currently off antibiotics will continue to monitor (4) Hypertension Current Visit: Yes Status: Acute Qualifiers: Hypertension type: essential hypertension Qualified Code(s): I10 - Essential (primary) hypertension Plan to address problem: Blood pressures is fairly stable on current medication would maintain the same at this time (5) Type 2 diabetes mellitus without complications Current Visit: Yes Status: Acute Plan to address problem: Patient reported with Hypoglycemia this morning ,will hold long acting Insulin Levermir and continue sliding scale insulin for now (6) Deep vein blood clot of left lower extremity Current Visit: Yes Status: Acute Plan to address problem: The patient has not been discontinued due to GI bleeding. Comments and recommendations from vascular surgery noted. Initial recommendation is that patient is not a candidate for [place] filter placement due to risk of further thrombogenic possibility from [place]vin[place] filter in patient with underlying malignancy. However patient now with GI bleeding on heparin will continue to hold heparin for now GI consults to evaluate patient's lower GI bleeding. (7) Anemia Current Visit: Yes Status: Acute Qualifiers: Iron deficiency anemia type: chronic blood loss Plan to address problem: Hemoglobin noted is a 11 status post transfusion of 2 units of packed red blood cell (8) Abdominal pain Current Visit: Yes Status: Acute Qualifiers: Abdominal location: upper abdomen, unspecified Qualified Code(s): R10.10 - Upper abdominal pain, unspecified Plan to address problem: Nausea vomiting subsided will restart patient on clear liquids only for now and advance as tolerated (9) Lower GI bleed Current Visit: Yes Status: Acute Plan to address problem: Patient with non-operable colon cancer with lower GI bleeding will request GI to reevaluate patient to fully ascertain source and actual location of bleed keep patient on clear liquid for now to GI evaluation is completed. Discussed extensively with patient and his and plan for further workup of this new GI bleeding discussed Subjective Date of service: 09/19/17 Principal diagnosis: fever from Pneumonia, ant abdomninal; vs abcess, acute DVT and PE Interval history: Patient seen and examined chart reviewed, consultants notes reviewed. Events over the weekend noted, patient reported to be having bright red blood per rectum as well as melanotic stool which has now subsided. Hemoglobin reported dropped to 7.1 and patient received 2 units of packed red blood cells with hemoglobin now at 11. Patient denied any further bleeding over the past 24 hours but has ongoing abdominal discomforts no nausea or vomiting reported and no fever reported. Patient now off anticoagulation heparin Objective - Exam Narrative Exam: GENERAL: Patient resting comfortably in bed, mildly pale but not jaundiced not in any acute distress. HEENT: Mucous membrane is moist, pharynx is clear. NECK: [No JVD, no thyroid enlargement and no lymphadenopathy.] CHEST/LUNGS: Reduced air exchange bibasally, a few rhonchi no wheezes no rales [No chest wall tenderness, percussion is normal, symmetrical chest wall.] HEART/CARDIOVASCULAR: [Regular rate and rhythm, S1 and S2 only, no murmur.] ABDOMEN: [Abdomen is soft, nondistended, multiple healed laparotomy scars no guarding, no rebound tenderness, , active bowel sounds.] SKIN: [Warm and dry, no rash.] NEURO: [Awake, alert, oriented x3, speech normal. ] EXTREMITIES: Pedal edema left lower extremity up to below the knee, no edema on the right, good peripheral pulses bilaterally no finger or toe clubbing. - Constitutional Vitals: Vital Signs - 12hr 09/18/17 09/18/17 09/18/17 21:37 22:00 22:57 Temperature Pulse Rate 71 Respiratory Rate Blood Pressure 117/64 O2 Sat by Pulse 99 95 Oximetry 09/18/17 09/19/17 09/19/17 22:58 05:33 05:51 Temperature 99.3 F Pulse Rate 71 81 Respiratory 20 20 Rate Blood Pressure 117/64 141/76 O2 Sat by Pulse 98 Oximetry 09/19/17 06:33 Temperature Pulse Rate Respiratory 20 Rate Blood Pressure O2 Sat by Pulse Oximetry - Labs CBC & Chem 7: 09/18/17 Unknown 09/18/17 Unknown Labs: Abnormal lab results 09/18/17 09/18/17 09/18/17 Range/Units 11:52 16:49 22:50 Hgb (11.8-15.2) gm/dl Hct (35.5-45.6) % POC Glucose 312 H 235 H 191 H (70-105) 09/18/17 09/19/17 Range/Units Unknown 07:34 Hgb 10.8 L (11.8-15.2) gm/dl Hct 33.3 L (35.5-45.6) % POC Glucose 266 H (70-105)
[2017-09-19] MEDS: NOVOLOG SUB-Q SCH ×4 (09:17→22:34)
[2017-09-19] MEDS: PERIACTIN PO SCH ×2 (09:18→21:51)
[2017-09-19] MEDS: TENORMIN PO SCH ×2 (09:19→21:50)
[2017-09-19] MEDS: ZESTRIL PO SCH (09:20)
[2017-09-19] MEDS: ZOFRAN IV PRN ×2 (09:20→21:50)
[2017-09-19] MEDS: PROTONIX IV SCH ×2 (09:20→21:50)
[2017-09-19] MEDS: NORVASC PO SCH (09:21)
[2017-09-19] MEDS: CARDURA PO SCH ×2 (09:21→21:51)
[2017-09-19] MEDS: GLUCOPHAGE PO SCH ×2 (09:21→18:53)
--- NOTE | 2017-09-19 10:45 | Gastroenterology Consultation ---
<CANDISJONATAN McleodSharif - Last Filed: 09/19/17 11:19> History of Present Illness - Reason for Consult Consult date: 09/19/17 GI bleed Requesting physician: YAN MOYER - History of Present Illness Patient is a 66 y/o male with PMH of DM, DVT, GERD, HTN, colon CA who presented to ED with c/o AMS and fever. He has an extensive surgical history 2/2 colon CA. He was originally diagnosed with colon CA in 2005 and underwent treatment with colon resection and chemo. He developed a fistula to which he also had repaired. Pt states he had been doing well until earlier this year when he was found to have a small bowel obstruction due to an abdominal mass. In July 2017 he was taken to [place] for surgery where he underwent a small bowel bypass but the abdominal mass was deemed inoperable due to delicate location and its association to the great vessels/intestines. There is question if abdominal mass is malignant vs adhesion. No evidence of met per recent CT and previous PET scan 06/2017, however CT chest showed hilar mass not a metastatic lesion per radiologist. He currently has a LLE extensive DVT with acute PE. He was placed on a heparin gtt, which is currently being held due to GI bleeding. This morning pt was resting in bed w/o acute distress and at bedside. She states he developed black stool on Tuesday. Stool over the weekend continued to be black with scant amount of bright red blood/clots. Last BM was this am with stool black mixed with some brown stool. Pt c/o generalized abd pain with occasional N/V. No N/V this am. Tolerating clear liquids fairly well. Denies CP , SOB, dizziness, hematemesis, dysphagia, odynophagia, diarrhea, or constipation. No NSAID use or hx of PUD. Last EGD/colonoscopy was in 04/2017 per with negative results. Past History Past Medical History: cancer, diabetes, hypertension, other (colon cancer). denies: No medical history Past Surgical History: bowel surgery Social history: smoking, alcohol abuse, prescription drug abuse Family history: no significant family history Medications and Allergies Allergies Allergy/AdvReac Type Severity Reaction Status Date / Time No Known Allergies Allergy Verified 01/01/15 13:25 Home Medications Medication Instructions Recorded Confirmed Last Taken Type Amlodipine Besylate/Benazepril 1 tab PO DAILY 01/01/15 08/27/17 08/26/17 History [amLODIPine-Benazepril 10/20 mg] Atenolol [Atenolol] 100 mg PO BID 01/01/15 08/27/17 08/26/17 History Insulin Glargine,Hum.rec.anlog 20 units SUB-Q HS 01/01/15 08/27/17 08/26/17 History [Lantus Solostar] Omeprazole [Omeprazole] 20 mg PO DAILY 01/01/15 08/27/17 08/26/17 History glyBURIDE/METFORMIN HCL 10 tab PO DAILY 01/01/15 08/27/17 08/26/17 History [Glyburide-Metformin 5-500 mg] Doxazosin [Cardura] 2 mg PO BID 08/27/17 08/27/17 08/26/17 History Insulin Glargine [Lantus] 20 unit SUB-Q QHS 08/27/17 08/27/17 08/26/17 History Simethicone [Gas Relief] 80 mg PO ACHS 08/27/17 08/27/17 08/26/17 History Warfarin [Coumadin] 7.5 mg PO QDAY 08/27/17 08/27/17 08/25/17 History metFORMIN [Glucophage] 500 mg PO BID 08/27/17 08/27/17 08/26/17 History oxyCODONE [Roxicodone] 5 mg PO Q4HR PRN 08/27/17 08/27/17 08/26/17 History Active Meds: Active Medications Acetaminophen (Tylenol) 650 mg PO Q6H PRN PRN Reason: Pain, Mild (1-3) Last Admin: 09/17/17 00:47 Dose: 650 mg Acetaminophen/Hydrocodone Bitart ([place]) 5 mg PO Q6H PRN PRN Reason: Cough Last Admin: 09/19/17 05:33 Dose: 5 mg Albuterol (Proventil) 2.5 mg IH Q4HRT PRN PRN Reason: Shortness Of Breath Albuterol/Ipratropium (Duoneb *Not For Prn Use*) 1 ampul IH Q6HRT PENDING SALE TO [facility] Last Admin: 09/19/17 01:15 Dose: Not Given Amlodipine Besylate (Norvasc) 10 mg PO QDAY PENDING SALE TO [facility] Last Admin: 09/19/17 09:21 Dose: 10 mg Atenolol (Tenormin) 100 mg PO BID PENDING SALE TO [facility] Last Admin: 09/19/17 09:19 Dose: 100 mg Benzonatate (Tessalon Perles) 100 mg PO Q4H PRN PRN Reason: Cough Last Admin: 09/14/17 21:46 Dose: 100 mg Budesonide (Pulmicort) 0.5 mg IH Q12HRT PENDING SALE TO [facility] Last Admin: 09/18/17 21:35 Dose: 0.5 mg Cyproheptadine HCl (Periactin) 4 mg PO BID PENDING SALE TO [facility] Last Admin: 09/19/17 09:18 Dose: 4 mg Dextrose (D50w (25gm) Syringe) 50 ml IV PRN PRN PRN Reason: Hypoglycemia Doxazosin Mesylate (Cardura) 2 mg PO BID PENDING SALE TO [facility] Last Admin: 09/19/17 09:21 Dose: 2 mg Amino Acids/Electrolytes/Dextrose (Tpn Adult) 2,016 mls @ 84 mls/hr IV DAILY@ 2000 PENDING SALE TO [facility] PRN Reason: Protocol Stop: 09/19/17 19:59 Last Admin: 09/18/17 20:42 Dose: 84 mls/hr Insulin Aspart (Novolog) 0 units SUB-Q ACHS PENDING SALE TO [facility] PRN Reason: Protocol Last Admin: 09/19/17 09:17 Dose: 3 units Insulin Detemir (Levemir) 20 units SUB-Q QHS PENDING SALE TO [facility] Last Admin: 08/30/17 22:35 Dose: 20 units Lisinopril (Zestril) 20 mg PO QDAY PENDING SALE TO [facility] Last Admin: 09/19/17 09:20 Dose: 20 mg Metformin HCl (Glucophage) 500 mg PO BIDDIAB PENDING SALE TO [facility] Last Admin: 09/19/17 09:21 Dose: 500 mg Ondansetron HCl (Zofran) 4 mg IV Q8H PRN PRN Reason: Nausea And Vomiting Last Admin: 09/19/17 09:20 Dose: 4 mg Oxycodone HCl (Roxicodone) 5 mg PO Q4HR PRN PRN Reason: Pain Last Admin: 09/18/17 09:02 Dose: 5 mg Pantoprazole Sodium (Protonix) 40 mg IV BID PENDING SALE TO [facility] Last Admin: 09/19/17 09:20 Dose: 40 mg Review of Systems - Review of Systems All systems: negative Gastrointestinal: abdominal pain, nausea, vomiting, melena Exam - Constitutional Vital Signs: Temp Pulse Resp BP Pulse Ox 98.7 F 74 18 145/70 97 09/19/17 09:02 09/19/17 09:21 09/19/17 09:02 09/19/17 09:21 09/19/17 09:02 General appearance: no acute distress - Respiratory Respiratory: bilateral: diminished - Cardiovascular Rhythm: regular Heart Sounds: Present: S1 & S2 Extremity abnormal: edema (LLE) - Gastrointestinal General gastrointestinal: Present: soft, tender, non-distended (mild diffuse TTP ), normal bowel sounds - Integumentary Integumentary: Present: warm, dry - Neurologic Neurological: alert and oriented x3 - Labs CBC & Chem 7: 09/18/17 Unknown 09/19/17 10:15 Lab Results: Laboratory Results - last 24 hr 09/18/17 09/18/17 09/18/17 11:52 16:49 22:50 Hgb Hct POC Glucose 312 H 235 H 191 H 09/18/17 09/19/17 Unknown 07:34 Hgb 10.8 L Hct 33.3 L POC Glucose 266 H Assessment and Plan 1.GI bleed 2.melena 3.BRBPR 4.abdominal mass 5.DVT with acute PE 6.hx of colon CA -HGB 11.0 yesterday s/p transfusion of 2 units PRBCs -will order stat CBC for today -continue to monitor H/H and transfuse as needed -BM x 1 this am with black stool mixed with some brown stool -continue to hold blood thinning medications -pt currently hemodynamically stable -pt would be a high risk for endoscopic evaluation -will order stat bleeding scan -discussed with IR pt's condition and possible placement of IVC filter -continue PPI and supportive care -further recommendations to follow <WALTER RIOS - Last Filed: 09/19/17 12:42> Medications and Allergies Active Meds: Active Medications Acetaminophen (Tylenol) 650 mg PO Q6H PRN PRN Reason: Pain, Mild (1-3) Last Admin: 09/17/17 00:47 Dose: 650 mg Acetaminophen/Hydrocodone Bitart ([place]) 5 mg PO Q6H PRN PRN Reason: Cough Last Admin: 09/19/17 05:33 Dose: 5 mg Albuterol (Proventil) 2.5 mg IH Q4HRT PRN PRN Reason: Shortness Of Breath Albuterol/Ipratropium (Duoneb *Not For Prn Use*) 1 ampul IH Q6HRT PENDING SALE TO [facility] Last Admin: 09/19/17 10:48 Dose: 1 ampul Amlodipine Besylate (Norvasc) 10 mg PO QDAY PENDING SALE TO [facility] Last Admin: 09/19/17 09:21 Dose: 10 mg Atenolol (Tenormin) 100 mg PO BID PENDING SALE TO [facility] Last Admin: 09/19/17 09:19 Dose: 100 mg Benzonatate (Tessalon Perles) 100 mg PO Q4H PRN PRN Reason: Cough Last Admin: 09/14/17 21:46 Dose: 100 mg Budesonide (Pulmicort) 0.5 mg IH Q12HRT PENDING SALE TO [facility] Last Admin: 09/19/17 10:48 Dose: 0.5 mg Cyproheptadine HCl (Periactin) 4 mg PO BID PENDING SALE TO [facility] Last Admin: 09/19/17 09:18 Dose: 4 mg Dextrose (D50w (25gm) Syringe) 50 ml IV PRN PRN PRN Reason: Hypoglycemia Doxazosin Mesylate (Cardura) 2 mg PO BID PENDING SALE TO [facility] Last Admin: 09/19/17 09:21 Dose: 2 mg Amino Acids/Electrolytes/Dextrose (Tpn Adult) 2,016 mls @ 84 mls/hr IV DAILY@ 2000 PENDING SALE TO [facility] PRN Reason: Protocol Stop: 09/19/17 19:59 Last Admin: 09/18/17 20:42 Dose: 84 mls/hr Insulin Aspart (Novolog) 0 units SUB-Q ACHS PENDING SALE TO [facility] PRN Reason: Protocol Last Admin: 09/19/17 12:00 Dose: 3 units Insulin Detemir (Levemir) 20 units SUB-Q QHS PENDING SALE TO [facility] Last Admin: 08/30/17 22:35 Dose: 20 units Lisinopril (Zestril) 20 mg PO QDAY PENDING SALE TO [facility] Last Admin: 09/19/17 09:20 Dose: 20 mg Metformin HCl (Glucophage) 500 mg PO BIDDIAB PENDING SALE TO [facility] Last Admin: 09/19/17 09:21 Dose: 500 mg Ondansetron HCl (Zofran) 4 mg IV Q8H PRN PRN Reason: Nausea And Vomiting Last Admin: 09/19/17 09:20 Dose: 4 mg Oxycodone HCl (Roxicodone) 5 mg PO Q4HR PRN PRN Reason: Pain Last Admin: 09/18/17 09:02 Dose: 5 mg Pantoprazole Sodium (Protonix) 40 mg IV BID [facility] Last Admin: 09/19/17 09:20 Dose: 40 mg Exam - Constitutional Vital Signs: Temp Pulse Resp BP Pulse Ox 98.7 F 73 24 145/70 100 09/19/17 09:02 09/19/17 11:12 09/19/17 11:12 09/19/17 09:21 09/19/17 10:44 - Labs CBC & Chem 7: 09/19/17 11:23 09/19/17 10:15 Lab Results: Laboratory Results - last 24 hr 09/18/17 09/18/17 09/18/17 11:52 16:49 22:50 WBC RBC Hgb Hct MCV MCH MCHC RDW Plt Count Lymph % (Auto) [place] % (Auto) Eos % (Auto) Baso % (Auto) Lymph # [place] # Eos # Baso # Seg Neutrophils % Seg Neutrophils # Sodium Potassium Chloride Carbon Dioxide Anion Gap BUN Creatinine Estimated GFR BUN/Creatinine Ratio Glucose POC Glucose 312 H 235 H 191 H Calcium Phosphorus Magnesium Total Bilirubin AST ALT Alkaline Phosphatase Total Protein Albumin Albumin/Globulin Ratio 09/19/17 09/19/17 09/19/17 07:34 10:15 11:23 WBC 10.0 RBC 3.75 Hgb 10.4 L Hct 31.7 L MCV 84 MCH 28 MCHC 33 RDW 19.3 H Plt Count 227 Lymph % (Auto) 26.7 [place] % (Auto) 8.1 H Eos % (Auto) 1.6 Baso % (Auto) 0.9 Lymph # 2.7 [place] # 0.8 Eos # 0.2 Baso # 0.1 Seg Neutrophils % 62.7 Seg Neutrophils # 6.3 Sodium 138 Potassium 3.8 Chloride 103.6 Carbon Dioxide 21 L Anion Gap 17 BUN 50 H Creatinine 1.2 Estimated GFR > 60 BUN/Creatinine Ratio 42 Glucose 263 H POC Glucose 266 H Calcium 9.0 Phosphorus 3.20 Magnesium 2.10 Total Bilirubin 0.20 AST 50 H ALT 78 H Alkaline Phosphatase 82 Total Protein 6.5 Albumin 2.5 L Albumin/Globulin Ratio 0.6 09/19/17 11:26 WBC RBC Hgb Hct MCV MCH MCHC RDW Plt Count Lymph % (Auto) [place] % (Auto) Eos % (Auto) Baso % (Auto) Lymph # [place] # Eos # Baso # Seg Neutrophils % Seg Neutrophils # Sodium Potassium Chloride Carbon Dioxide Anion Gap BUN Creatinine Estimated GFR BUN/Creatinine Ratio Glucose POC Glucose 284 H Calcium Phosphorus Magnesium Total Bilirubin AST ALT Alkaline Phosphatase Total Protein Albumin Albumin/Globulin Ratio Assessment and Plan - Patient Problems (1) GI bleed Current Visit: Yes Status: Acute Plan to address problem: I have seen and examined patient independently and discussed care with the patient, his and Dr. Greenwood. Will plan stat bleeding scan for suspected bleed related to intra abdominal tumor encroaching the small bowel. Will consider repeat EGD if UGI source suggested. May need consideration of embolization by IR although there are increased risks in this setting. Walter Rios MD (2) DVT (deep venous thrombosis) Current Visit: Yes Status: Acute Qualifiers: Laterality: left (3) Lung mass Current Visit: Yes Status: Acute (4) Type 2 diabetes mellitus without complications Current Visit: Yes Status: Acute (5) Colon cancer metastasized to multiple sites Current Visit: Yes Status: Ruled-out
[2017-09-19] MEDS: PULMICORT IH SCH ×2 (10:48→22:50)
[2017-09-19 11:10] LABS: Alanine Aminotransferase 78 units/L (7-56); Albumin 2.5 g/dL (3.9-5); Albumin/Globulin Ratio 0.6 %; Alkaline Phosphatase 82 units/L (35-129); Anion Gap 17 mmol/L; BUN/Creatinine Ratio 42; Blood Urea Nitrogen 50 mg/dL (9-20); Carbon Dioxide 21 mmol/L (22-30); Chloride 103.6 mmol/L (98-107); Glucose 263 mg/dL (75-100); Potassium 3.8 mmol/L (3.6-5.0); Sodium 138 mmol/L (137-145); Total Protein 6.5 g/dL (6.3-8.2)
--- NOTE | 2017-09-19 11:24 | Event Note ---
Date: 09/19/17 Patient GI bleeding noted. He'll be scheduled for IVC filter placement tomorrow. He is currently getting a bleeding scan today to evaluate the source of his bleeding with further recommendations on that follow.
[2017-09-19 11:33] LABS: Basophils % (Auto) 0.9 % (0.0-1.8); Eosinophils % (Auto) 1.6 % (0.0-4.3); Hematocrit 31.7 % (35.5-45.6); Hemoglobin 10.4 gm/dl (11.8-15.2); Mean Corpuscular HGB Conc 33 % (32-34); Mean Corpuscular Hemoglobin 28 pg (28-32); Mean Corpuscular Volume 84 fl (84-94); Platelet Count 227 K/mm3 (140-440); Red Blood Count 3.75 M/mm3 (3.65-5.03); Red Cell Distribution Width 19.3 % (13.2-15.2)
[2017-09-19] MEDS ORDERED: FLUSH HEPARIN IV ONE (13:11)
--- NOTE | 2017-09-19 16:00 | Nuclear Medicine Report ---
GI bleeding scan: Melena. Following injection of radionuclide tagged RBCs images were obtained over the abdomen and pelvis for 60 minutes. No extravascular accumulation of activity is identified to indicate bleeding or bleeding source. Normal activity identified in the liver, spleen, and heart. Impression: No hemorrhage identified.
--- NOTE | 2017-09-19 19:04 | Progress Note ---
Assessment and Plan - Patient Problems (1) Deep vein blood clot of left lower extremity Current Visit: Yes Status: Acute Plan to address problem: see below. no new issues at this time. See notes. (2) Colon cancer metastasized to multiple sites Current Visit: Yes Status: Ruled-out Plan to address problem: see notes. eventually will get chemo/xrt. once stable. (3) Lung mass Current Visit: Yes Status: Acute Plan to address problem: see notes. (4) Pulmonary embolism Current Visit: Yes Status: Acute Plan to address problem: anticoags. see notes. (5) DVT (deep venous thrombosis) Current Visit: Yes Status: Acute Qualifiers: Laterality: left Plan to address problem: anti coags. (6) Anemia Current Visit: Yes Status: Acute Qualifiers: Iron deficiency anemia type: chronic blood loss Plan to address problem: see notes. will transfuse. will repeat labs. Subjective Date of service: 09/19/17 Principal diagnosis: fever from Pneumonia, ant abdomninal; vs abcess, acute DVT and PE Interval history: Patient seen/examined, record reviewed, case d/w his daughter at the bed side.No procedure was done today. I have d/w DR BOYD today, and he will see patient .He is confused today, with some lethargy. Patient seen/examined, resting in bed, labs reviewed, notes reviewed. DR BOYD not available yet, so i am seeing patient today.No new issues at this time Patient seen/resting in bed, still some what confused.Notes reviewed, Lung lesion now ? for mets.I have updated DR BOYD today Patient seen/examined, labs reviewed.H/H 6.6 , I have spoken to his nurse, and will draw from a non heparin line Stat. Patient seen, resting in bed, labs reviewed. I have d/w the nurse, and will order PRBC. Patient seen/examined, resting in bed, labs reviewed, case d/w patient and family at the bed side. He is s/p 2uPRBC transfusion.He is scheduled for IVC Filter placement, after which he can be transitioned to oral anticoagulation. eloquis. he should be able to transfer to chair, and back to bed once Heparin in therapeutic range. Patient seen/examined, labs reviewed, case d/w patient, and family.IVC filter not placed, so patient restarted on his Heparin.once placed, then patient can be ab;e to move around. Patient seen/examined, ,resting in bed, family at the bed side, IVC filter placement was not done. for some unknown reason..I have discussed with DR Mirza this morning that once Filter placed, he may be d/c home to start chemo. Patient seen/examined, case d/w patient / at the bed side.I will speak with IR about Filter placement, so patient can proceed with chemo. Patient seen/examined, resting in bed, record reviewed, No IVC filter yet. Patient seen/examined, case d/w him, and family. I had spoken to DR LOJA, and the conclusion was that patient will be switched to LMWH tx dose for probably indefinite, but if any surgical procedure is intended, or there is another thrombotic event, then he will get an IVC filter.I will d/w DR Mirza tomorrow, and if he can be d/c soon so he can get ready for chemo. Patient seen/examined, resting in bed, appears slightly lethargic, at the bed side, case d/w both, and with the primary team, Dr Lewis. Patient having GI bleed actively, heparin on hold now for 2days. patient also having projectile emesis bile like. I think that due to this new development, Patient can not be on anticoagulation,and he still remains pro thrombotic. This will make him a candidate for an alternative measure such as an IVC filter..Any major procedure such as GI scope can can even result in thrombotic event.He will need abdominal imaging also to r/o obstruction. Patient seen/examined, resting in bed, notes reviewed, patient asleep.I have reviewed notes , and glad that DR Longoria has concord with recommendation for IVC Filter.. Objective - Constitutional Vitals: Vital Signs - 12hr 09/19/17 09/19/17 09/19/17 09:02 09:19 09:20 Temperature 98.7 F Pulse Rate 74 74 74 Pulse Rate [ Anterior Bilateral] Pulse Rate [ Anterior Right Throughout] Respiratory 18 Rate Respiratory Rate [Anterior Bilateral] Respiratory Rate [Anterior Right Throughout] Blood Pressure 145/70 145/70 145/70 O2 Sat by Pulse 97 Oximetry 09/19/17 09/19/17 09/19/17 09:21 10:44 11:12 Temperature Pulse Rate 74 Pulse Rate [ 73 Anterior Bilateral] Pulse Rate [ 71 Anterior Right Throughout] Respiratory Rate Respiratory 24 Rate [Anterior Bilateral] Respiratory 28 H Rate [Anterior Right Throughout] Blood Pressure 145/70 O2 Sat by Pulse 100 Oximetry General appearance: Present: mild distress - EENT Eyes: PERRL, EOM intact ENT: hearing intact, clear oral mucosa Ears: bilateral: normal - Neck Neck: supple, normal ROM - Respiratory Respiratory: bilateral: diminished - Breasts Breasts: normal - Cardiovascular Rhythm: regular Heart Sounds: Present: S1 & S2. Absent: gallop, rub Extremities: pulses intact, No edema, normal color, Full ROM - Gastrointestinal General gastrointestinal: Present: soft, non-tender, non-distended, normal bowel sounds Rectal Exam: deferred - Genitourinary Male genitourinary: deferred - Integumentary Integumentary: clear, warm, dry - Musculoskeletal Musculoskeletal: 1, strength equal bilaterally - Neurologic Neurologic: moves all extremities - Psychiatric Psychiatric: appropriate mood/affect - Labs CBC & Chem 7: 09/19/17 11:23 09/19/17 10:15 Labs: Abnormal lab results 09/18/17 09/19/17 09/19/17 Range/Units 22:50 07:34 10:15 Hgb (11.8-15.2) gm/dl Hct (35.5-45.6) % RDW (13.2-15.2) % [place] % (Auto) (0.0-7.3) % Carbon Dioxide 21 L (22-30) mmol/L BUN 50 H (9-20) mg/dL Glucose 263 H (75-100) mg/dL POC Glucose 191 H 266 H (70-105) AST 50 H (5-40) units/L ALT 78 H (7-56) units/L Albumin 2.5 L (3.9-5) g/dL 09/19/17 09/19/17 09/19/17 Range/Units 11:23 11:26 17:20 Hgb 10.4 L (11.8-15.2) gm/dl Hct 31.7 L (35.5-45.6) % RDW 19.3 H (13.2-15.2) % [place] % (Auto) 8.1 H (0.0-7.3) % Carbon Dioxide (22-30) mmol/L BUN (9-20) mg/dL Glucose (75-100) mg/dL POC Glucose 284 H 143 H (70-105) AST (5-40) units/L ALT (7-56) units/L Albumin (3.9-5) g/dL
[2017-09-19] MEDS ORDERED: TPN ADULT 2,016 ML IV SCH (20:00)
[2017-09-19] MEDS: TESSALON PERLES PO PRN (21:50)
[2017-09-19] MEDS: TYLENOL PO PRN (22:22)
[2017-09-20] MEDS: DUONEB *Not for PRN Use IH SCH ×4 (02:11→20:22)
[2017-09-20 04:52] LABS: Basophils % (Auto) 0.3 % (0.0-1.8); Eosinophils % (Auto) 2.2 % (0.0-4.3); Hematocrit 27.4 % (35.5-45.6); Hemoglobin 8.9 gm/dl (11.8-15.2); Mean Corpuscular HGB Conc 33 % (32-34); Mean Corpuscular Hemoglobin 28 pg (28-32); Mean Corpuscular Volume 85 fl (84-94); Platelet Count 212 K/mm3 (140-440); Red Blood Count 3.22 M/mm3 (3.65-5.03); Red Cell Distribution Width 19.6 % (13.2-15.2); White Blood Count 8.9 K/mm3 (4.5-11.0)
[2017-09-20 04:53] LABS: Alanine Aminotransferase 335 units/L (7-56); Albumin 2.3 g/dL (3.9-5); Albumin/Globulin Ratio 0.6 %; Alkaline Phosphatase 109 units/L (35-129); Anion Gap 13 mmol/L; BUN/Creatinine Ratio 45; Blood Urea Nitrogen 50 mg/dL (9-20); Calcium 8.7 mg/dL (8.4-10.2); Carbon Dioxide 23 mmol/L (22-30); Glucose 217 mg/dL (75-100); Potassium 3.8 mmol/L (3.6-5.0); Sodium 137 mmol/L (137-145)
[2017-09-20] MEDS: PULMICORT IH SCH ×2 (07:32→20:22)
[2017-09-20] MEDS: NOVOLOG SUB-Q SCH ×4 (08:04→22:38)
[2017-09-20] MEDS: GLUCOPHAGE PO SCH ×2 (08:05→16:58)
[2017-09-20] MEDS ORDERED: VERSED ONE (08:17)
[2017-09-20] MEDS ORDERED: HEPARIN/NS 5000 UNIT/500ML(CATH LAB) 500 ML IR ONE (08:17)
[2017-09-20] MEDS ORDERED: SUBLIMAZE ONE (08:17)
[2017-09-20] MEDS ORDERED: ANCEF/STERILE WATER 2 GM/20 ML 2 GM/20 ML SYRINGE IV ONE (08:18)
[2017-09-20] MEDS ORDERED: NACL 0.9% 250ML 250 ML ONE (08:18)
[2017-09-20] MEDS ORDERED: XYLOCAINE 2% INFILTRATI ONE (08:18)
--- NOTE | 2017-09-20 09:20 | Progress Note ---
Assessment and Plan - Patient Problems (1) Colon cancer metastasized to multiple sites Current Visit: Yes Status: Ruled-out Plan to address problem: No definite evidence of multiple metastasis to lung or liver at this point. Repeat CT of the chest was reviewed extensively with Dr. Bradford and he is not convinced at this time that the lesion in the lung is a metastatic lesion. 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 (2) Altered mental status Current Visit: Yes Status: Resolved Qualifiers: Altered mental status type: transient alteration of awareness Qualified Code(s): R40.4 - Transient alteration of awareness Plan to address problem: Impression more alert and oriented and no further episode of agitation and disorientation reported by nursing staff (3) Fever Current Visit: Yes Status: Resolved Qualifiers: Fever type: unspecified Qualified Code(s): R50.9 - Fever, unspecified Plan to address problem: Fever has now resolved afebrile the past few days (4) Hypertension Current Visit: Yes Status: Acute Qualifiers: Hypertension type: essential hypertension Qualified Code(s): I10 - Essential (primary) hypertension Plan to address problem: Blood pressures is fairly stable on current medication would maintain the same at this time (5) Type 2 diabetes mellitus without complications Current Visit: Yes Status: Acute Plan to address problem: Patient reported with Hypoglycemia this morning ,will hold long acting Insulin Levermir and continue sliding scale insulin for now (6) Deep vein blood clot of left lower extremity Current Visit: Yes Status: Acute Plan to address problem: Patient now statue placement of IVC filter due to new onset of lower GI bleed , anticoagulation now on hold (7) Anemia Current Visit: Yes Status: Acute Qualifiers: Iron deficiency anemia type: chronic blood loss Plan to address problem: Hemoglobin noted is a 11 status post transfusion of 2 units of packed red blood cell (8) Abdominal pain Current Visit: Yes Status: Acute Qualifiers: Abdominal location: upper abdomen, unspecified Qualified Code(s): R10.10 - Upper abdominal pain, unspecified Plan to address problem: Nausea vomiting subsided will restart patient on clear liquids only for now and advance as tolerated (9) Lower GI bleed Current Visit: Yes Status: Acute Plan to address problem: GI evaluation reviewed ,patient had bleeding scan performed yestaerday . Will followup on the result . 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 Patient denied any new complaints no pain and no fever reported. Patient has had no new lower GI bleeding since yesterday. Vital stable Objective - Exam Narrative Exam: GENERAL: Patient resting comfortably in bed, mildly pale but not jaundiced not in any acute distress. HEENT: Mucous membrane is moist, pharynx is clear. NECK: [No JVD, no thyroid enlargement and no lymphadenopathy.] CHEST/LUNGS: Reduced air exchange bibasally, a few rhonchi no wheezes no rales [No chest wall tenderness, percussion is normal, symmetrical chest wall.] HEART/CARDIOVASCULAR: [Regular rate and rhythm, S1 and S2 only, no murmur.] ABDOMEN: [Abdomen is soft, nondistended, multiple healed laparotomy scars no guarding, no rebound tenderness, , active bowel sounds.] SKIN: [Warm and dry, no rash.] NEURO: [Awake, alert, oriented x3, speech normal. ] EXTREMITIES: Pedal edema left lower extremity up to below the knee, no edema on the right, good peripheral pulses bilaterally no finger or toe clubbing. - Constitutional Vitals: Vital Signs - 12hr 09/19/17 09/19/17 09/19/17 21:44 21:50 22:00 Temperature Pulse Rate 80 80 Pulse Rate [ Anterior Bilateral Throughout] Respiratory 24 Rate Respiratory Rate [Abdomen] Respiratory Rate [Anterior Bilateral Throughout] Blood Pressure 135/60 O2 Sat by Pulse 96 94 Oximetry 09/19/17 09/20/17 09/20/17 22:22 02:00 04:25 Temperature 99.2 F Pulse Rate Pulse Rate [ Anterior Bilateral Throughout] Respiratory 20 18 Rate Respiratory 20 Rate [Abdomen] Respiratory Rate [Anterior Bilateral Throughout] Blood Pressure 111/57 O2 Sat by Pulse Oximetry 09/20/17 09/20/17 07:34 07:41 Temperature 98.0 F Pulse Rate 66 Pulse Rate [ 81 84 Anterior Bilateral Throughout] Respiratory 18 Rate Respiratory Rate [Abdomen] Respiratory 18 18 Rate [Anterior Bilateral Throughout] Blood Pressure 118/59 O2 Sat by Pulse 96 Oximetry - Labs CBC & Chem 7: 09/20/17 03:15 09/20/17 03:15 Labs: Abnormal lab results 09/19/17 09/19/17 09/19/17 Range/Units 10:15 11:23 11:26 RBC (3.65-5.03) M/mm3 Hgb 10.4 L (11.8-15.2) gm/dl Hct 31.7 L (35.5-45.6) % RDW 19.3 H (13.2-15.2) % [place] % (Auto) 8.1 H (0.0-7.3) % [place] # (0.0-0.8) K/mm3 Carbon Dioxide 21 L (22-30) mmol/L BUN 50 H (9-20) mg/dL Glucose 263 H (75-100) mg/dL POC Glucose 284 H (70-105) AST 50 H (5-40) units/L ALT 78 H (7-56) units/L Total Protein (6.3-8.2) g/dL Albumin 2.5 L (3.9-5) g/dL 09/19/17 09/19/17 09/20/17 Range/Units 17:20 22:25 03:15 RBC (3.65-5.03) M/mm3 Hgb (11.8-15.2) gm/dl Hct (35.5-45.6) % RDW (13.2-15.2) % [place] % (Auto) (0.0-7.3) % [place] # (0.0-0.8) K/mm3 Carbon Dioxide (22-30) mmol/L BUN 50 H (9-20) mg/dL Glucose 217 H (75-100) mg/dL POC Glucose 143 H 223 H (70-105) AST 222 H (5-40) units/L ALT 335 H (7-56) units/L Total Protein 6.0 L (6.3-8.2) g/dL Albumin 2.3 L (3.9-5) g/dL 09/20/17 Range/Units 03:15 RBC 3.22 L (3.65-5.03) M/mm3 Hgb 8.9 L (11.8-15.2) gm/dl Hct 27.4 L (35.5-45.6) % RDW 19.6 H (13.2-15.2) % [place] % (Auto) 10.5 H (0.0-7.3) % [place] # 0.9 H (0.0-0.8) K/mm3 Carbon Dioxide (22-30) mmol/L BUN (9-20) mg/dL Glucose (75-100) mg/dL POC Glucose (70-105) AST (5-40) units/L ALT (7-56) units/L Total Protein (6.3-8.2) g/dL Albumin (3.9-5) g/dL
[2017-09-20] MEDS: PERIACTIN PO SCH ×2 (11:08→22:07)
[2017-09-20] MEDS: TENORMIN PO SCH ×2 (11:08→22:08)
[2017-09-20] MEDS: ZESTRIL PO SCH (11:09)
[2017-09-20] MEDS: CARDURA PO SCH ×2 (11:09→22:08)
[2017-09-20] MEDS: PROTONIX PO SCH ×2 (11:09→22:07)
[2017-09-20] MEDS: NORVASC PO SCH (11:09)
--- NOTE | 2017-09-20 13:27 | Operative Report ---
Operative Report Operative Report: Procedure: 1. Inferior vena cavography 2. Successful inferior vena cava filter placement Date of Procedure: 09/20/2017 History/Indication: Recurrent DVT/PE Physician: Barbara Mccain MD Technique/Procedural Details: The patient was placed in the supine position and prepped and draped in the usual sterile fashion. A timeout was performed. Local anesthetic was administered. Under continuous ultrasound guidance, the right common femoral vein was accessed with an 18-gauge needle. The needle was exchanged for a 5 [place] sheath over an O35 wire. Through the 5 [place] sheath, a J-wire and pigtail flush catheter were advanced. There is a pigtail catheter, venography of the inferior vena cava was performed. Inappropriate level was chosen for placement of the IVC filter. A [place] IVC filter, femoral access kit, was then deployed in the usual fashion. A final image was acquired. The sheath was removed, and hemostasis was achieved with manual pressure. Discussion: There is successful placement of a retrievable [place] IVC filter. Venography shows the inferior vena cava to be of normal size and free of clot. The filter was successfully placed below the left renal vein. Specimen: None EBL: <5 cc
--- NOTE | 2017-09-20 15:57 | Gastroenterology Progress Note ---
Assessment and Plan - Patient Problems (1) GI bleed Current Visit: Yes Status: Acute Plan to address problem: Bleeding has subsided. Bleeding scan was negative. Conservative care is planned unless there is further bleeding off heparin. (2) DVT (deep venous thrombosis) Current Visit: Yes Status: Acute Qualifiers: Laterality: left (3) Lung mass Current Visit: Yes Status: Acute (4) Type 2 diabetes mellitus without complications Current Visit: Yes Status: Acute (5) Colon cancer metastasized to multiple sites Current Visit: Yes Status: Ruled-out (6) Elevated liver enzymes Current Visit: Yes Status: Acute Plan to address problem: Elevated LFTs over night suspicious for acute injury from ischemia. LFTs previously were normal. If he does not normalize, then a doppler study to assess for vascular occlusions, eg hepatic vein or portal vein thrombosis may be useful. He is currently not a candidate for anticoagulation due to the bleeding. Subjective Date of service: 09/20/17 Principal diagnosis: GI bleeding, colon cancer Interval history: The patient reports feeling better today. No further bleeding. Denies any pain. Objective - Constitutional Vitals: Temp Pulse Resp BP Pulse Ox 97.8 F 84 18 99/53 97 09/20/17 13:40 09/20/17 13:47 09/20/17 13:47 09/20/17 13:40 09/20/17 13:40 General appearance: no acute distress - EENT ENT: hearing intact, clear oral mucosa - Respiratory Respiratory effort: normal Respiratory: bilateral: CTA - Gastrointestinal General gastrointestinal: Present: soft, non-tender, non-distended, normal bowel sounds - Neurologic Neurological: alert and oriented x3 - Labs CBC & Chem 7: 09/20/17 03:15 09/20/17 03:15 Labs: Laboratory Results - last 24 hr 09/19/17 09/19/17 09/20/17 17:20 22:25 03:15 WBC RBC Hgb Hct MCV MCH MCHC RDW Plt Count Lymph % (Auto) [place] % (Auto) Eos % (Auto) Baso % (Auto) Lymph # [place] # Eos # Baso # Seg Neutrophils % Seg Neutrophils # Sodium 137 Potassium 3.8 Chloride 105.0 Carbon Dioxide 23 Anion Gap 13 BUN 50 H Creatinine 1.1 Estimated GFR > 60 BUN/Creatinine Ratio 45 Glucose 217 H POC Glucose 143 H 223 H Calcium 8.7 Phosphorus 4.10 D Magnesium 2.00 Total Bilirubin 0.20 AST 222 H ALT 335 H Alkaline Phosphatase 109 Total Protein 6.0 L Albumin 2.3 L Albumin/Globulin Ratio 0.6 09/20/17 09/20/17 09/20/17 03:15 07:40 11:35 WBC 8.9 RBC 3.22 L Hgb 8.9 L Hct 27.4 L MCV 85 MCH 28 MCHC 33 RDW 19.6 H Plt Count 212 Lymph % (Auto) 30.0 [place] % (Auto) 10.5 H Eos % (Auto) 2.2 Baso % (Auto) 0.3 Lymph # 2.7 [place] # 0.9 H Eos # 0.2 Baso # 0.0 Seg Neutrophils % 57.0 Seg Neutrophils # 5.1 Sodium Potassium Chloride Carbon Dioxide Anion Gap BUN Creatinine Estimated GFR BUN/Creatinine Ratio Glucose POC Glucose 187 H 267 H Calcium Phosphorus Magnesium Total Bilirubin AST ALT Alkaline Phosphatase Total Protein Albumin Albumin/Globulin Ratio Laboratory Results - last 24 hr 09/19/17 09/19/17 09/20/17 17:20 22:25 03:15 WBC RBC Hgb Hct MCV MCH MCHC RDW Plt Count Lymph % (Auto) [place] % (Auto) Eos % (Auto) Baso % (Auto) Lymph # [place] # Eos # Baso # Seg Neutrophils % Seg Neutrophils # Sodium 137 Potassium 3.8 Chloride 105.0 Carbon Dioxide 23 Anion Gap 13 BUN 50 H Creatinine 1.1 Estimated GFR > 60 BUN/Creatinine Ratio 45 Glucose 217 H POC Glucose 143 H 223 H Calcium 8.7 Phosphorus 4.10 D Magnesium 2.00 Total Bilirubin 0.20 AST 222 H ALT 335 H Alkaline Phosphatase 109 Total Protein 6.0 L Albumin 2.3 L Albumin/Globulin Ratio 0.6 09/20/17 09/20/17 09/20/17 03:15 07:40 11:35 WBC 8.9 RBC 3.22 L Hgb 8.9 L Hct 27.4 L MCV 85 MCH 28 MCHC 33 RDW 19.6 H Plt Count 212 Lymph % (Auto) 30.0 [place] % (Auto) 10.5 H Eos % (Auto) 2.2 Baso % (Auto) 0.3 Lymph # 2.7 [place] # 0.9 H Eos # 0.2 Baso # 0.0 Seg Neutrophils % 57.0 Seg Neutrophils # 5.1 Sodium Potassium Chloride Carbon Dioxide Anion Gap BUN Creatinine Estimated GFR BUN/Creatinine Ratio Glucose POC Glucose 187 H 267 H Calcium Phosphorus Magnesium Total Bilirubin AST ALT Alkaline Phosphatase Total Protein Albumin Albumin/Globulin Ratio
--- NOTE | 2017-09-20 17:34 | Progress Note ---
Assessment and Plan - Patient Problems (1) Deep vein blood clot of left lower extremity Current Visit: Yes Status: Acute Plan to address problem: see below. no new issues at this time. See notes. (2) Colon cancer metastasized to multiple sites Current Visit: Yes Status: Ruled-out Plan to address problem: see notes. eventually will get chemo/xrt. once stable. (3) Lung mass Current Visit: Yes Status: Acute Plan to address problem: see notes. (4) Pulmonary embolism Current Visit: Yes Status: Acute Plan to address problem: anticoags. see notes. (5) DVT (deep venous thrombosis) Current Visit: Yes Status: Acute Qualifiers: Laterality: left Plan to address problem: anti coags. (6) Anemia Current Visit: Yes Status: Acute Qualifiers: Iron deficiency anemia type: chronic blood loss Plan to address problem: see notes. will transfuse. will repeat labs. Subjective Date of service: 09/20/17 Principal diagnosis: GI bleeding, colon cancer Interval history: Patient seen/examined, record reviewed, case d/w his daughter at the bed side.No procedure was done today. I have d/w DR BOYD today, and he will see patient .He is confused today, with some lethargy. Patient seen/examined, resting in bed, labs reviewed, notes reviewed. DR BOYD not available yet, so i am seeing patient today.No new issues at this time Patient seen/resting in bed, still some what confused.Notes reviewed, Lung lesion now ? for mets.I have updated DR BOYD today Patient seen/examined, labs reviewed.H/H 6.6 , I have spoken to his nurse, and will draw from a non heparin line Stat. Patient seen, resting in bed, labs reviewed. I have d/w the nurse, and will order PRBC. Patient seen/examined, resting in bed, labs reviewed, case d/w patient and family at the bed side. He is s/p 2uPRBC transfusion.He is scheduled for IVC Filter placement, after which he can be transitioned to oral anticoagulation. eloquis. he should be able to transfer to chair, and back to bed once Heparin in therapeutic range. Patient seen/examined, labs reviewed, case d/w patient, and family.IVC filter not placed, so patient restarted on his Heparin.once placed, then patient can be ab;e to move around. Patient seen/examined, ,resting in bed, family at the bed side, IVC filter placement was not done. for some unknown reason..I have discussed with DR Mirza this morning that once Filter placed, he may be d/c home to start chemo. Patient seen/examined, case d/w patient / at the bed side.I will speak with IR about Filter placement, so patient can proceed with chemo. Patient seen/examined, resting in bed, record reviewed, No IVC filter yet. Patient seen/examined, case d/w him, and family. I had spoken to DR LOJA, and the conclusion was that patient will be switched to LMWH tx dose for probably indefinite, but if any surgical procedure is intended, or there is another thrombotic event, then he will get an IVC filter.I will d/w DR Mirza tomorrow, and if he can be d/c soon so he can get ready for chemo. Patient seen/examined, resting in bed, appears slightly lethargic, at the bed side, case d/w both, and with the primary team, Dr Lewis. Patient having GI bleed actively, heparin on hold now for 2days. patient also having projectile emesis bile like. I think that due to this new development, Patient can not be on anticoagulation,and he still remains pro thrombotic. This will make him a candidate for an alternative measure such as an IVC filter..Any major procedure such as GI scope can can even result in thrombotic event.He will need abdominal imaging also to r/o obstruction. Patient seen/examined, resting in bed, notes reviewed, patient asleep.I have reviewed notes , and glad that DR Longoria has concord with recommendation for IVC Filter.. patient seen/examined, notes reviewed. IVC filter placement completed, as per patient, who is more alert at this time. Objective - Constitutional Vitals: Vital Signs - 12hr 09/20/17 09/20/17 09/20/17 07:34 07:41 11:08 Temperature 98.0 F Pulse Rate 66 71 Pulse Rate [ 81 84 Anterior Bilateral Throughout] Respiratory 18 Rate Respiratory 18 18 Rate [Anterior Bilateral Throughout] Blood Pressure 118/59 125/69 O2 Sat by Pulse 96 Oximetry 09/20/17 09/20/17 09/20/17 13:40 13:42 13:47 Temperature 97.8 F Pulse Rate 60 Pulse Rate [ 88 84 Anterior Bilateral Throughout] Respiratory 19 Rate Respiratory 18 18 Rate [Anterior Bilateral Throughout] Blood Pressure 99/53 O2 Sat by Pulse 97 Oximetry General appearance: Present: no acute distress - EENT Eyes: PERRL, EOM intact ENT: hearing intact, clear oral mucosa Ears: bilateral: normal - Neck Neck: supple, normal ROM - Respiratory Respiratory: bilateral: CTA - Cardiovascular Rhythm: regular Heart Sounds: Present: S1 & S2. Absent: gallop, rub Extremities: pulses intact, No edema, normal color, Full ROM - Gastrointestinal General gastrointestinal: Present: soft, non-tender, non-distended, normal bowel sounds Rectal Exam: deferred - Genitourinary Male genitourinary: deferred - Integumentary Integumentary: clear, warm, dry - Musculoskeletal Musculoskeletal: 1, strength equal bilaterally - Neurologic Neurologic: moves all extremities - Psychiatric Psychiatric: memory intact, appropriate mood/affect, intact judgment & insight - Labs CBC & Chem 7: 09/20/17 03:15 09/20/17 03:15 Labs: Abnormal lab results 09/19/17 09/20/17 09/20/17 Range/Units 22:25 03:15 03:15 RBC 3.22 L (3.65-5.03) M/mm3 Hgb 8.9 L (11.8-15.2) gm/dl Hct 27.4 L (35.5-45.6) % RDW 19.6 H (13.2-15.2) % [place] % (Auto) 10.5 H (0.0-7.3) % [place] # 0.9 H (0.0-0.8) K/mm3 BUN 50 H (9-20) mg/dL Glucose 217 H (75-100) mg/dL POC Glucose 223 H (70-105) AST 222 H (5-40) units/L ALT 335 H (7-56) units/L Total Protein 6.0 L (6.3-8.2) g/dL Albumin 2.3 L (3.9-5) g/dL 09/20/17 09/20/17 09/20/17 Range/Units 07:40 11:35 16:42 RBC (3.65-5.03) M/mm3 Hgb (11.8-15.2) gm/dl Hct (35.5-45.6) % RDW (13.2-15.2) % [place] % (Auto) (0.0-7.3) % [place] # (0.0-0.8) K/mm3 BUN (9-20) mg/dL Glucose (75-100) mg/dL POC Glucose 187 H 267 H 264 H (70-105) AST (5-40) units/L ALT (7-56) units/L Total Protein (6.3-8.2) g/dL Albumin (3.9-5) g/dL
[2017-09-20] MEDS ORDERED: TPN ADULT 2,016 ML IV SCH (20:00)
[2017-09-20] MEDS: TESSALON PERLES PO PRN (22:07)
[2017-09-21] MEDS: DUONEB *Not for PRN Use IH SCH ×4 (01:48→20:47)
[2017-09-21] MEDS: NORCO PO PRN (01:54)
[2017-09-21 06:39] LABS: Calcium 8.9 mg/dL (8.4-10.2); Chloride 102.9 mmol/L (98-107); Magnesium 2.4 mg/dL (1.7-2.3); Phosphorous 4.5 mg/dL (2.5-4.5); Potassium 3.9 mmol/L (3.6-5.0)
[2017-09-21] MEDS: PULMICORT IH SCH ×2 (07:15→20:47)
[2017-09-21] MEDS: NOVOLOG SUB-Q SCH ×4 (08:14→22:53)
[2017-09-21] MEDS: GLUCOPHAGE PO SCH ×2 (08:15→17:40)
--- NOTE | 2017-09-21 09:12 | Progress Note ---
Assessment and Plan - Patient Problems (1) Colon cancer metastasized to multiple sites Current Visit: Yes Status: Ruled-out Plan to address problem: No definite evidence of multiple metastasis to lung or liver at this point. Repeat CT of the chest was reviewed extensively with Dr. Bradford and he is not convinced at this time that the lesion in the lung is a metastatic lesion. 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 (2) Altered mental status Current Visit: Yes Status: Resolved Qualifiers: Altered mental status type: transient alteration of awareness Qualified Code(s): R40.4 - Transient alteration of awareness Plan to address problem: Impression more alert and oriented and no further episode of agitation and disorientation reported by nursing staff (3) Fever Current Visit: Yes Status: Resolved Qualifiers: Fever type: unspecified Qualified Code(s): R50.9 - Fever, unspecified Plan to address problem: Fever has now resolved afebrile the past few days (4) Hypertension Current Visit: Yes Status: Acute Qualifiers: Hypertension type: essential hypertension Qualified Code(s): I10 - Essential (primary) hypertension Plan to address problem: Blood pressures is fairly stable on current medication would maintain the same at this time (5) Type 2 diabetes mellitus without complications Current Visit: Yes Status: Acute (6) Deep vein blood clot of left lower extremity Current Visit: Yes Status: Acute Plan to address problem: Patient now status post placement of IVC filter due to new onset of lower GI bleed ,anticoagulation now on hold (7) Anemia Current Visit: Yes Status: Acute Qualifiers: Iron deficiency anemia type: chronic blood loss Plan to address problem: Hemoglobin noted is a 11 status post transfusion of 2 units of packed red blood cell (8) Abdominal pain Current Visit: Yes Status: Acute Qualifiers: Abdominal location: upper abdomen, unspecified Qualified Code(s): R10.10 - Upper abdominal pain, unspecified Plan to address problem: Nausea vomiting subsided will restart patient on clear liquids only for now and advance as tolerated (9) Lower GI bleed Current Visit: Yes Status: Acute Plan to address problem: GI evaluation reviewed ,patient had bleeding scan performed yestaerday . Will followup on the result . (10) Petechial rash Current Visit: Yes Status: Acute Plan to address problem: Possible localized reaction to local metastatic agent will observe closely and watch for any systemic component to this localized rash will also recheck platelet count as well as CBC (11) Abnormal liver function test Current Visit: Yes Status: Acute Plan to address problem: Abnormal liver function tests observed need to rule out ischemic response secondary to new onset clots. We'll continue to monitor liver functions serially Subjective Date of service: 09/21/17 Principal diagnosis: GI bleeding, colon cancer Interval history: Patient seen and examined chart reviewed. Nursing staff reported the patient has been having low blood pressure all through the night for which current blood pressure pressure medications were held. No fever reported patient however has developed a new petechial rash over the antecubital foci bilaterally patient denied any pruritus or pain in this area rash was noticed late yesterday evening after the procedure for placement of IVC filter. Patient denied any chest pain but breathing appears slightly labored this morning Objective - Exam Narrative Exam: GENERAL: Patient resting comfortably in bed, mildly pale but not jaundiced not in any acute distress. HEENT: Mucous membrane is moist, pharynx is clear. NECK: [No JVD, no thyroid enlargement and no lymphadenopathy.] CHEST/LUNGS: Reduced air exchange bibasally, a few rhonchi no wheezes no rales [No chest wall tenderness, percussion is normal, symmetrical chest wall.] HEART/CARDIOVASCULAR: [Regular rate and rhythm, S1 and S2 only, no murmur.] ABDOMEN: [Abdomen is soft, nondistended, multiple healed laparotomy scars no guarding, no rebound tenderness, , active bowel sounds.] SKIN: Petechia erythematous rash in the antecubital fossa extending to the upper arm bilaterally no rash in the trunk or lower extremities NEURO: [Awake, alert, oriented x3, speech normal. ] EXTREMITIES: Pedal edema left lower extremity up to below the knee, no edema on the right, good peripheral pulses bilaterally no finger or toe clubbing. - Constitutional Vitals: Vital Signs - 12hr 09/20/17 09/21/17 09/21/17 22:08 01:48 01:50 Temperature Pulse Rate 56 L 53 L Pulse Rate [ 55 L Anterior Bilateral Throughout] Respiratory Rate Respiratory 20 Rate [Abdomen] Respiratory 18 Rate [Anterior Bilateral Throughout] Blood Pressure 94/51 O2 Sat by Pulse 97 Oximetry 09/21/17 09/21/17 09/21/17 01:54 01:58 02:54 Temperature Pulse Rate Pulse Rate [ 56 L Anterior Bilateral Throughout] Respiratory 24 20 Rate Respiratory Rate [Abdomen] Respiratory 16 Rate [Anterior Bilateral Throughout] Blood Pressure O2 Sat by Pulse Oximetry 09/21/17 09/21/17 09/21/17 04:19 07:16 07:19 Temperature 98.8 F 97.5 F L Pulse Rate 48 L Pulse Rate [ 64 Anterior Bilateral Throughout] Respiratory 18 18 Rate Respiratory Rate [Abdomen] Respiratory 18 Rate [Anterior Bilateral Throughout] Blood Pressure 100/52 96/50 O2 Sat by Pulse 96 98 Oximetry 09/21/17 09/21/17 09/21/17 07:22 08:02 08:47 Temperature 98.0 F Pulse Rate 50 L Pulse Rate [ 62 Anterior Bilateral Throughout] Respiratory 24 24 Rate Respiratory Rate [Abdomen] Respiratory 18 Rate [Anterior Bilateral Throughout] Blood Pressure 97/50 O2 Sat by Pulse 100 Oximetry - Labs CBC & Chem 7: 09/20/17 03:15 09/21/17 05:20 Labs: Abnormal lab results 09/20/17 09/20/17 09/20/17 Range/Units 07:40 11:35 16:42 Sodium (137-145) mmol/L Carbon Dioxide (22-30) mmol/L BUN (9-20) mg/dL Creatinine (0.8-1.5) mg/dL Glucose (75-100) mg/dL POC Glucose 187 H 267 H 264 H (70-105) Magnesium (1.7-2.3) mg/dL 09/20/17 09/21/17 09/21/17 Range/Units 22:14 05:20 07:22 Sodium 136 L (137-145) mmol/L Carbon Dioxide 21 L (22-30) mmol/L BUN 71 H (9-20) mg/dL Creatinine 1.8 H D (0.8-1.5) mg/dL Glucose 279 H (75-100) mg/dL POC Glucose 289 H 341 H (70-105) Magnesium 2.40 H (1.7-2.3) mg/dL
[2017-09-21] MEDS: CARDURA PO SCH ×2 (10:00→22:45)
[2017-09-21] MEDS: NORVASC PO SCH (10:00)
[2017-09-21] MEDS: TENORMIN PO SCH ×2 (10:00→22:45)
[2017-09-21] MEDS: ZESTRIL PO SCH (10:00)
--- NOTE | 2017-09-21 10:05 | Gastroenterology Progress Note ---
Assessment and Plan 1.GI bleed 2.melena 3.BRBPR 4.abdominal mass 5.DVT with acute PE 6.hx of colon CA 7.elevated liver enzymes -HGB 8.9 yesterday -will order stat CBC for today -continue to monitor H/H and transfuse as needed -no active signs of bleeding overnight or this am - reports BM x 1 last night with dark stool, however rectal exam revealed brown stool with no evidence of bleeding -bleeding scan negative -s/p IVC filter placment yesterday -pt would be a high risk for endoscopic evaluation, will treat with conservative management at this time since bleeding has resolved -continue PPI -elevated LFTs yesterday with etiology suspicious for acute injury from ischemia -will order stat CMP for today -if LFTs are still elevated would recommend a doppler study to r/o vascular occlusion, eg hepatic vein or portal vein thrombosis (not a candidate for anticoagulation due to bleeding) -clinically pt states he is feeling better with no c/o abd pain or N/V -tolerating clear liquids -continue supportive care -will follow Subjective Date of service: 09/21/17 Principal diagnosis: GI bleeding, colon cancer Interval history: Patient resting in bed. No acute distress. Family at bedside. reports BM x 1 last night with dark brown stool. No active signs of bleeding overnight or this am per nursing. Denies abd pain or N/V. Tolerating clears. Objective - Constitutional Vitals: Temp Pulse Resp BP Pulse Ox 98.0 F 50 L 24 97/50 100 09/21/17 08:02 09/21/17 08:02 09/21/17 08:47 09/21/17 08:02 09/21/17 08:02 General appearance: no acute distress - Respiratory Respiratory: bilateral: CTA - Cardiovascular Rhythm: other (bradycardia) Heart Sounds: Present: S1 & S2 - Gastrointestinal General gastrointestinal: Present: soft, non-tender, non-distended, other (abd scars from previous surgeries) Rectal Exam: stool brown - Integumentary Integumentary: Present: rash (Petechia erythematous rash to the bilateral upper arms ) - Neurologic Neurological: alert and oriented x3 - Labs CBC & Chem 7: 09/20/17 03:15 09/21/17 05:20 Labs: Laboratory Results - last 24 hr 09/20/17 09/20/17 09/20/17 07:40 11:35 16:42 Sodium Potassium Chloride Carbon Dioxide Anion Gap BUN Creatinine Estimated GFR BUN/Creatinine Ratio Glucose POC Glucose 187 H 267 H 264 H Calcium Phosphorus Magnesium 09/20/17 09/21/17 09/21/17 22:14 05:20 07:22 Sodium 136 L Potassium 3.9 Chloride 102.9 Carbon Dioxide 21 L Anion Gap 16 BUN 71 H Creatinine 1.8 H D Estimated GFR 46 BUN/Creatinine Ratio 39 Glucose 279 H POC Glucose 289 H 341 H Calcium 8.9 Phosphorus 4.50 Magnesium 2.40 H
[2017-09-21] MEDS: PROTONIX PO SCH ×2 (10:43→22:44)
[2017-09-21] MEDS: PERIACTIN PO SCH ×2 (10:43→22:48)
[2017-09-21 11:10] LABS: Basophils % (Auto) 0.5 % (0.0-1.8); Eosinophils % (Auto) 1.7 % (0.0-4.3); Hematocrit 26.1 % (35.5-45.6); Hemoglobin 8.5 gm/dl (11.8-15.2); Mean Corpuscular HGB Conc 33 % (32-34); Mean Corpuscular Hemoglobin 28 pg (28-32); Mean Corpuscular Volume 85 fl (84-94); Platelet Count 212 K/mm3 (140-440); Red Blood Count 3.06 M/mm3 (3.65-5.03); Red Cell Distribution Width 19.7 % (13.2-15.2)
[2017-09-21 11:32] LABS: Albumin 2.3 g/dL (3.9-5); Albumin/Globulin Ratio 0.6 %; Bilirubin,Total 0.3 mg/dL (0.1-1.2)
--- NOTE | 2017-09-21 18:15 | Progress Note ---
Assessment and Plan - Patient Problems (1) Deep vein blood clot of left lower extremity Current Visit: Yes Status: Acute Plan to address problem: see below. no new issues at this time. See notes. (2) Colon cancer metastasized to multiple sites Current Visit: Yes Status: Ruled-out Plan to address problem: see notes. eventually will get chemo/xrt. once stable. (3) Lung mass Current Visit: Yes Status: Acute Plan to address problem: see notes. (4) Pulmonary embolism Current Visit: Yes Status: Acute Plan to address problem: anticoags. see notes. no more anti coags. (5) DVT (deep venous thrombosis) Current Visit: Yes Status: Acute Qualifiers: Laterality: left Plan to address problem: anti coags. no more. (6) Anemia Current Visit: Yes Status: Acute Qualifiers: Iron deficiency anemia type: chronic blood loss Plan to address problem: see notes. will transfuse. will repeat labs. stable Subjective Date of service: 09/21/17 Principal diagnosis: GI bleeding, colon cancer Interval history: Patient seen/examined, record reviewed, case d/w his daughter at the bed side.No procedure was done today. I have d/w DR BOYD today, and he will see patient .He is confused today, with some lethargy. Patient seen/examined, resting in bed, labs reviewed, notes reviewed. DR BOYD not available yet, so i am seeing patient today.No new issues at this time Patient seen/resting in bed, still some what confused.Notes reviewed, Lung lesion now ? for mets.I have updated DR BOYD today Patient seen/examined, labs reviewed.H/H 6.6 , I have spoken to his nurse, and will draw from a non heparin line Stat. Patient seen, resting in bed, labs reviewed. I have d/w the nurse, and will order PRBC. Patient seen/examined, resting in bed, labs reviewed, case d/w patient and family at the bed side. He is s/p 2uPRBC transfusion.He is scheduled for IVC Filter placement, after which he can be transitioned to oral anticoagulation. eloquis. he should be able to transfer to chair, and back to bed once Heparin in therapeutic range. Patient seen/examined, labs reviewed, case d/w patient, and family.IVC filter not placed, so patient restarted on his Heparin.once placed, then patient can be ab;e to move around. Patient seen/examined, ,resting in bed, family at the bed side, IVC filter placement was not done. for some unknown reason..I have discussed with DR Mirza this morning that once Filter placed, he may be d/c home to start chemo. Patient seen/examined, case d/w patient / at the bed side.I will speak with IR about Filter placement, so patient can proceed with chemo. Patient seen/examined, resting in bed, record reviewed, No IVC filter yet. Patient seen/examined, case d/w him, and family. I had spoken to DR LOJA, and the conclusion was that patient will be switched to LMWH tx dose for probably indefinite, but if any surgical procedure is intended, or there is another thrombotic event, then he will get an IVC filter.I will d/w DR Mirza tomorrow, and if he can be d/c soon so he can get ready for chemo. Patient seen/examined, resting in bed, appears slightly lethargic, at the bed side, case d/w both, and with the primary team, Dr Lewis. Patient having GI bleed actively, heparin on hold now for 2days. patient also having projectile emesis bile like. I think that due to this new development, Patient can not be on anticoagulation,and he still remains pro thrombotic. This will make him a candidate for an alternative measure such as an IVC filter..Any major procedure such as GI scope can can even result in thrombotic event.He will need abdominal imaging also to r/o obstruction. Patient seen/examined, resting in bed, notes reviewed, patient asleep.I have reviewed notes , and glad that DR Longoria has concord with recommendation for IVC Filter.. patient seen/examined, notes reviewed. IVC filter placement completed, as per patient, who is more alert at this time. patient seen/examined , resting in bed, vss, afebrile, some what lethargic, family at the bed side.Skin of the extremity, with diffuse purpura., started post surgery.,almost like vasculitis.may need steroid trial. Objective - Constitutional Vitals: Vital Signs - 12hr 09/21/17 09/21/17 09/21/17 07:16 07:19 07:22 Temperature 97.5 F L Pulse Rate 48 L Pulse Rate [ 64 62 Anterior Bilateral Throughout] Respiratory 18 Rate Respiratory 18 18 Rate [Anterior Bilateral Throughout] Blood Pressure 96/50 O2 Sat by Pulse 96 98 Oximetry 09/21/17 09/21/17 09/21/17 08:02 08:47 10:00 Temperature 98.0 F Pulse Rate 50 L 50 L Pulse Rate [ Anterior Bilateral Throughout] Respiratory 24 24 Rate Respiratory Rate [Anterior Bilateral Throughout] Blood Pressure 97/50 97/50 O2 Sat by Pulse 100 Oximetry 09/21/17 09/21/17 09/21/17 11:23 14:06 14:13 Temperature 99.3 F Pulse Rate 50 L Pulse Rate [ 65 61 Anterior Bilateral Throughout] Respiratory 24 Rate Respiratory 18 18 Rate [Anterior Bilateral Throughout] Blood Pressure 93/44 O2 Sat by Pulse 98 Oximetry 09/21/17 14:41 Temperature 98.3 F Pulse Rate 52 L Pulse Rate [ Anterior Bilateral Throughout] Respiratory 22 Rate Respiratory Rate [Anterior Bilateral Throughout] Blood Pressure 103/43 O2 Sat by Pulse 96 Oximetry General appearance: Present: mild distress - EENT Eyes: PERRL, EOM intact ENT: hearing intact, clear oral mucosa Ears: bilateral: normal - Neck Neck: supple, normal ROM - Respiratory Respiratory effort: normal Respiratory: bilateral: CTA - Cardiovascular Rhythm: regular Heart Sounds: Present: S1 & S2. Absent: gallop, rub Extremities: pulses intact, No edema, normal color, Full ROM - Gastrointestinal General gastrointestinal: Present: soft, non-tender, non-distended, normal bowel sounds Rectal Exam: deferred - Genitourinary Male genitourinary: deferred - Integumentary Integumentary: clear, warm, dry - Musculoskeletal Musculoskeletal: 1, strength equal bilaterally - Neurologic Neurologic: moves all extremities - Psychiatric Psychiatric: appropriate mood/affect - Labs CBC & Chem 7: 09/21/17 10:51 09/21/17 10:51 Labs: Abnormal lab results 09/20/17 09/21/17 09/21/17 Range/Units 22:14 05:20 07:22 RBC (3.65-5.03) M/mm3 Hgb (11.8-15.2) gm/dl Hct (35.5-45.6) % RDW (13.2-15.2) % Alcorn % (Auto) (0.0-7.3) % Sodium 136 L (137-145) mmol/L Carbon Dioxide 21 L (22-30) mmol/L BUN 71 H (9-20) mg/dL Creatinine 1.8 H D (0.8-1.5) mg/dL Glucose 279 H (75-100) mg/dL POC Glucose 289 H 341 H (70-105) Magnesium 2.40 H (1.7-2.3) mg/dL ALT (7-56) units/L Total Protein (6.3-8.2) g/dL Albumin (3.9-5) g/dL 09/21/17 09/21/17 09/21/17 Range/Units 10:51 10:51 11:38 RBC 3.06 L (3.65-5.03) M/mm3 Hgb 8.5 L (11.8-15.2) gm/dl Hct 26.1 L (35.5-45.6) % RDW 19.7 H (13.2-15.2) % Alcorn % (Auto) 8.3 H (0.0-7.3) % Sodium (137-145) mmol/L Carbon Dioxide 19 L (22-30) mmol/L BUN 71 H (9-20) mg/dL Creatinine 2.0 H (0.8-1.5) mg/dL Glucose 265 H (75-100) mg/dL POC Glucose 324 H (70-105) Magnesium (1.7-2.3) mg/dL ALT 132 H (7-56) units/L Total Protein 6.0 L (6.3-8.2) g/dL Albumin 2.3 L (3.9-5) g/dL 09/21/17 Range/Units 16:25 RBC (3.65-5.03) M/mm3 Hgb (11.8-15.2) gm/dl Hct (35.5-45.6) % RDW (13.2-15.2) % Alcorn % (Auto) (0.0-7.3) % Sodium (137-145) mmol/L Carbon Dioxide (22-30) mmol/L BUN (9-20) mg/dL Creatinine (0.8-1.5) mg/dL Glucose (75-100) mg/dL POC Glucose 284 H (70-105) Magnesium (1.7-2.3) mg/dL ALT (7-56) units/L Total Protein (6.3-8.2) g/dL Albumin (3.9-5) g/dL
[2017-09-21] MEDS ORDERED: INTRALIPID 20% 250 ML IV SCH (20:00)
[2017-09-21] MEDS ORDERED: TPN ADULT 2,016 ML IV SCH (20:00)
[2017-09-22] MEDS: TYLENOL PO PRN (01:43)
[2017-09-22 05:22] LABS: Calcium 8.8 mg/dL (8.4-10.2); Chloride 101.3 mmol/L (98-107); Magnesium 2.6 mg/dL (1.7-2.3); Phosphorous 5.2 mg/dL (2.5-4.5); Potassium 4.2 mmol/L (3.6-5.0)
[2017-09-22 05:23] LABS: Alanine Aminotransferase 96 units/L (7-56); Albumin 2.6 g/dL (3.9-5); Albumin/Globulin Ratio 0.7 %; Alkaline Phosphatase 111 units/L (35-129); Total Protein 6.3 g/dL (6.3-8.2)
[2017-09-22 05:52] LABS: Bilirubin,Direct < 0.2 mg/dL (0-0.2)
[2017-09-22 07:36] LABS: Basophils % (Auto) 0.4 % (0.0-1.8); Eosinophils % (Auto) 0.4 % (0.0-4.3); Hematocrit 28.1 % (35.5-45.6); Hemoglobin 9.6 gm/dl (11.8-15.2); Mean Corpuscular HGB Conc 34 % (32-34); Mean Corpuscular Hemoglobin 33 pg (28-32); Mean Corpuscular Volume 96 fl (84-94); Platelet Count 212 K/mm3 (140-440); Red Blood Count 2.93 M/mm3 (3.65-5.03); White Blood Count 9.1 K/mm3 (4.5-11.0)
[2017-09-22] MEDS: DUONEB *Not for PRN Use IH SCH ×3 (07:36→19:49)
[2017-09-22] MEDS: PULMICORT IH SCH ×2 (07:36→19:49)
[2017-09-22 07:43] LABS: Red Cell Distribution Width 20.5 % (13.2-15.2)
[2017-09-22 08:16] LABS: Anion Gap TNR mmol/L; BUN/Creatinine Ratio TNR; Blood Urea Nitrogen TNR mg/dL (9-20); Calcium TNR mg/dL (8.4-10.2); Carbon Dioxide TNR mmol/L (22-30); Chloride TNR mmol/L (98-107); Potassium TNR mmol/L (3.6-5.0); Sodium TNR mmol/L (137-145)
[2017-09-22 08:17] LABS: Alanine Aminotransferase TNR units/L (7-56); Albumin TNR g/dL (3.9-5); Albumin/Globulin Ratio TNR %; Alkaline Phosphatase TNR units/L (35-129); Bilirubin,Total TNR mg/dL (0.1-1.2); Glucose TNR mg/dL (75-100); Total Protein TNR g/dL (6.3-8.2)
--- NOTE | 2017-09-22 08:52 | Progress Note ---
Assessment and Plan - Patient Problems (1) Colon cancer metastasized to multiple sites Current Visit: Yes Status: Ruled-out Plan to address problem: No definite evidence of multiple metastasis to lung or liver at this point. Repeat CT of the chest was reviewed extensively with Dr. Bradford and he is not convinced at this time that the lesion in the lung is a metastatic lesion. 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 (2) Altered mental status Current Visit: Yes Status: Resolved Qualifiers: Altered mental status type: transient alteration of awareness Qualified Code(s): R40.4 - Transient alteration of awareness Plan to address problem: Patient now lethargic and poorly responsive with change in mental status and respiration. We'll transfer patient to the intensive care unit and may require intubation and ventilator supports discussed with patient's family and with the patient will increase to to proceed with plan for respiratory support keep on BiPAP for now obtain ABG pulmonary consults (3) Fever Current Visit: Yes Status: Resolved Qualifiers: Fever type: unspecified Qualified Code(s): R50.9 - Fever, unspecified Plan to address problem: Fever has now resolved afebrile the past few days (4) Hypertension Current Visit: Yes Status: Acute Qualifiers: Hypertension type: essential hypertension Qualified Code(s): I10 - Essential (primary) hypertension Plan to address problem: Blood pressures is marginal with hold all blood pressure medication at this point (5) Type 2 diabetes mellitus without complications Current Visit: Yes Status: Acute Plan to address problem: Patient reported with hyperglycemia will adjust current coverage with long- acting insulin and sliding scale coverage (6) Deep vein blood clot of left lower extremity Current Visit: Yes Status: Acute Plan to address problem: Patient now status post placement of IVC filter due to new onset of lower GI bleed ,anticoagulation now on hold (7) Anemia Current Visit: Yes Status: Acute Qualifiers: Iron deficiency anemia type: chronic blood loss Plan to address problem: Hemoglobin noted is fairly stable posttransfusion with 2 units of Cells continue to monitor hemoglobin (8) Abdominal pain Current Visit: Yes Status: Acute Qualifiers: Abdominal location: upper abdomen, unspecified Qualified Code(s): R10.10 - Upper abdominal pain, unspecified Plan to address problem: Nausea vomiting subsided . We need to start on tube feeding after patient is intubated we'll continue with TPN at this point (9) Lower GI bleed Current Visit: Yes Status: Acute Plan to address problem: GI evaluation reviewed ,patient had bleeding scan which was negative and no further active lower GI bleeding reported stool reported to be brown but no active bleeding (10) Petechial rash Current Visit: Yes Status: Acute Plan to address problem: Possible localized reaction to local anaesthtic agent will observe closely and watch for any systemic component to this localized rash will also recheck platelet count as well as CBC (11) Abnormal liver function test Current Visit: Yes Status: Acute Plan to address problem: Abnormal liver function tests observed . Slight improvement noted since yesterday in transaminases level will continue to monitor. (12) Respiratory failure requiring intubation Current Visit: Yes Status: Acute Plan to address problem: Respiratory failure with hypoxia patient now on BiPAP may ultimately require intubation and ventilator support due to worsening respiratory status and hypoxia patient will be transferred to the intensive care unit at this point. Discussed with patient's and also with the patient who was to be intubated for full support Subjective Date of service: 09/22/17 Principal diagnosis: GI bleeding, colon cancer Interval history: Patient's condition became worse this morning, patient became diaphoretic and developed bleeding difficulty, patient was given breathing treatment however continued to be short of breath and less responsive and O2 saturation dropped into the mid 80s. Patient now on BiPAP poorly responsive but able to open eyes to name call. No fever reported and no further GI bleeding reported Objective - Exam Narrative Exam: GENERAL: Patient is lethargic, poorly responsive, open eyes to name call and able to answer a few questions . In obvious respiratory distress HEENT: Mucous membrane is moist, pharynx is clear. NECK: [No JVD, no thyroid enlargement and no lymphadenopathy.] CHEST/LUNGS: Reduced air exchange bibasally, a few rhonchi no wheezes no rales [No chest wall tenderness, percussion is normal, symmetrical chest wall.] HEART/CARDIOVASCULAR: Tachycardia. Second heart sounds only there is no audible murmur.] ABDOMEN: [Abdomen is soft, nondistended, multiple healed laparotomy scars no guarding, no rebound tenderness, , active bowel sounds.] SKIN: Petechia erythematous rash in the antecubital fossa extending to the upper arm, petechia also now extending into the thigh bilaterally NEURO: Lethargic responds only to name call and a few questions. EXTREMITIES: Pedal edema left lower extremity up to below the knee, no edema on the right, good peripheral pulses bilaterally no finger or toe clubbing. - Constitutional Vitals: Vital Signs - 12hr 09/21/17 09/21/17 09/21/17 21:00 22:00 22:45 Temperature Pulse Rate 52 L Pulse Rate [ 58 L Anterior Bilateral Throughout] Respiratory 22 Rate Respiratory 20 Rate [Anterior Bilateral Throughout] Blood Pressure 112/62 O2 Sat by Pulse Oximetry 09/22/17 09/22/17 09/22/17 01:43 02:43 04:45 Temperature 98.8 F Pulse Rate Pulse Rate [ Anterior Bilateral Throughout] Respiratory 20 20 24 Rate Respiratory Rate [Anterior Bilateral Throughout] Blood Pressure 125/58 O2 Sat by Pulse Oximetry 09/22/17 09/22/17 09/22/17 04:50 05:20 05:30 Temperature Pulse Rate 51 L Pulse Rate [ 52 L 55 L Anterior Bilateral Throughout] Respiratory Rate Respiratory 20 20 Rate [Anterior Bilateral Throughout] Blood Pressure O2 Sat by Pulse 92 Oximetry 09/22/17 09/22/17 09/22/17 07:13 07:37 07:44 Temperature 98.6 F Pulse Rate 51 L Pulse Rate [ 60 62 Anterior Bilateral Throughout] Respiratory 18 Rate Respiratory 18 18 Rate [Anterior Bilateral Throughout] Blood Pressure 128/57 O2 Sat by Pulse 94 96 Oximetry - Labs CBC & Chem 7: 09/22/17 07:10 09/22/17 07:10 Labs: Abnormal lab results 09/21/17 09/21/17 09/21/17 Range/Units 10:51 10:51 11:38 RBC 3.06 L (3.65-5.03) M/mm3 Hgb 8.5 L (11.8-15.2) gm/dl Hct 26.1 L (35.5-45.6) % MCV (84-94) fl MCH (28-32) pg RDW 19.7 H (13.2-15.2) % Parker % (Auto) 8.3 H (0.0-7.3) % Seg Neutrophils % (40.0-70.0) % Sodium (137-145) mmol/L Carbon Dioxide 19 L (22-30) mmol/L BUN 71 H (9-20) mg/dL Creatinine 2.0 H (0.8-1.5) mg/dL Glucose 265 H (75-100) mg/dL POC Glucose 324 H (70-105) Phosphorus (2.5-4.5) mg/dL Magnesium (1.7-2.3) mg/dL ALT 132 H (7-56) units/L Total Protein 6.0 L (6.3-8.2) g/dL Albumin 2.3 L (3.9-5) g/dL 09/21/17 09/21/17 09/22/17 Range/Units 16:25 22:57 04:30 RBC (3.65-5.03) M/mm3 Hgb (11.8-15.2) gm/dl Hct (35.5-45.6) % MCV (84-94) fl MCH (28-32) pg RDW (13.2-15.2) % Parker % (Auto) (0.0-7.3) % Seg Neutrophils % (40.0-70.0) % Sodium (137-145) mmol/L Carbon Dioxide (22-30) mmol/L BUN (9-20) mg/dL Creatinine (0.8-1.5) mg/dL Glucose (75-100) mg/dL POC Glucose 284 H 247 H (70-105) Phosphorus (2.5-4.5) mg/dL Magnesium (1.7-2.3) mg/dL ALT 96 H (7-56) units/L Total Protein (6.3-8.2) g/dL Albumin 2.6 L (3.9-5) g/dL 09/22/17 09/22/17 09/22/17 Range/Units 04:30 04:31 07:10 RBC 2.93 L (3.65-5.03) M/mm3 Hgb 9.6 L (11.8-15.2) gm/dl Hct 28.1 L (35.5-45.6) % MCV 96 H (84-94) fl MCH 33 H (28-32) pg RDW 20.5 H (13.2-15.2) % Parker % (Auto) (0.0-7.3) % Seg Neutrophils % 79.5 H (40.0-70.0) % Sodium 136 L (137-145) mmol/L Carbon Dioxide 18 L (22-30) mmol/L BUN 87 H (9-20) mg/dL Creatinine 2.3 H (0.8-1.5) mg/dL Glucose 331 H (75-100) mg/dL POC Glucose 309 H (70-105) Phosphorus 5.20 H (2.5-4.5) mg/dL Magnesium 2.60 H (1.7-2.3) mg/dL ALT (7-56) units/L Total Protein (6.3-8.2) g/dL Albumin (3.9-5) g/dL 09/22/17 09/22/17 Range/Units 07:21 08:43 RBC (3.65-5.03) M/mm3 Hgb (11.8-15.2) gm/dl Hct (35.5-45.6) % MCV (84-94) fl MCH (28-32) pg RDW (13.2-15.2) % Parker % (Auto) (0.0-7.3) % Seg Neutrophils % (40.0-70.0) % Sodium (137-145) mmol/L Carbon Dioxide (22-30) mmol/L BUN (9-20) mg/dL Creatinine (0.8-1.5) mg/dL Glucose (75-100) mg/dL POC Glucose 325 H 341 H (70-105) Phosphorus (2.5-4.5) mg/dL Magnesium (1.7-2.3) mg/dL ALT (7-56) units/L Total Protein (6.3-8.2) g/dL Albumin (3.9-5) g/dL
--- NOTE | 2017-09-22 09:20 | XRay Report ---
AP CHEST :09/22/17 CLINICAL: Shortness of breath. COMPARISON:09/06/17 FINDINGS: Persistent cardiomegaly and central vascular congestion. Increased opacities in the right lung base. The upper lobes are relatively clear. Slight increased opacity in the left lung base. A right PICC line tip remains in the distal SVC. IMPRESSION: CHF with mild pulmonary edema and increased patchy opacities of the right lung base suggestive of pneumonia.
[2017-09-22] MEDS ORDERED: SUBLIMAZE ONE (09:44)
[2017-09-22] MEDS ORDERED: NACL 0.9% 1000 ML 1,000 ML ONE (09:45)
[2017-09-22] MEDS ORDERED: VERSED IV ONE (10:00)
[2017-09-22] MEDS: GLUCOPHAGE PO SCH (10:20)
[2017-09-22] MEDS: PROTONIX PO SCH ×2 (10:21→22:11)
[2017-09-22] MEDS: NORVASC PO SCH (10:21)
[2017-09-22] MEDS: CARDURA PO SCH (10:21)
[2017-09-22] MEDS: PERIACTIN PO SCH (10:21)
[2017-09-22] MEDS: TENORMIN PO SCH (10:22)
[2017-09-22] MEDS: ZESTRIL PO SCH (10:22)
[2017-09-22] MEDS: INTROPIN DRIP 800 MG/D5W 250 ML 800 MG/250 ML BAG IV ONE ×2 (10:34→12:31)
[2017-09-22] MEDS ORDERED: INTROPIN DRIP 800 MG/D5W 250 ML 800 MG/250 ML BAG IV SCH (11:00)
--- NOTE | 2017-09-22 11:15 | XRay Report ---
AP CHEST: HISTORY: Endotracheal tube placement The endotracheal tube terminates 4.4 cm superior to the adriana. Mild cardiomegaly and pulmonary venous congestion are identified. Trace right pleural effusion. No consolidation or pneumothorax. Right arm PICC terminates at the cavoatrial junction. IMPRESSION: Adequate placement of the endotracheal tube. Mild CHF.
--- NOTE | 2017-09-22 11:16 | XRay Report ---
SUPINE KUB: History: Feeding tube placement. The feeding tube terminates just beyond the GE junction. Consider advancement by 5-10 cm. Please correlate with the image. The bowel gas pattern is nonspecific. No obstructive pattern or large free air is identified. IVC filter and evidence of multiple abdominal surgeries is noted. IMPRESSION: The feeding tube terminates just beyond the GE junction the proximal stomach. Consider advancement.
[2017-09-22] MEDS: NOVOLOG SUB-Q SCH ×5 (11:20→22:11)
--- NOTE | 2017-09-22 12:58 | Consultation ---
History of Present Illness Consult date: 09/22/17 Requesting physician: ALDO HERRING Reason for consult: other (Acute Hypoxemic Resp Failure; Sepsis Syndrome) History of present illness: PULMONARY/CCM CONSULT NOTE (Full dictation # [id number]) Please see dictated notes for full details Past History Past Medical History: cancer, diabetes, hypertension, other (colon cancer). denies: No medical history Past Surgical History: bowel surgery Social history: smoking, alcohol abuse, prescription drug abuse Family history: no significant family history Medications and Allergies Allergies Allergy/AdvReac Type Severity Reaction Status Date / Time No Known Allergies Allergy Verified 01/01/15 13:25 Home Medications Medication Instructions Recorded Confirmed Last Taken Type Amlodipine Besylate/Benazepril 1 tab PO DAILY 01/01/15 08/27/17 08/26/17 History [amLODIPine-Benazepril 10/20 mg] Atenolol [Atenolol] 100 mg PO BID 01/01/15 08/27/17 08/26/17 History Insulin Glargine,Hum.rec.anlog 20 units SUB-Q HS 01/01/15 08/27/17 08/26/17 History [Lantus Solostar] Omeprazole [Omeprazole] 20 mg PO DAILY 01/01/15 08/27/17 08/26/17 History glyBURIDE/METFORMIN HCL 10 tab PO DAILY 01/01/15 08/27/17 08/26/17 History [Glyburide-Metformin 5-500 mg] Doxazosin [Cardura] 2 mg PO BID 08/27/17 08/27/17 08/26/17 History Insulin Glargine [Lantus] 20 unit SUB-Q QHS 08/27/17 08/27/17 08/26/17 History Simethicone [Gas Relief] 80 mg PO ACHS 08/27/17 08/27/17 08/26/17 History Warfarin [Coumadin] 7.5 mg PO QDAY 08/27/17 08/27/17 08/25/17 History metFORMIN [Glucophage] 500 mg PO BID 08/27/17 08/27/17 08/26/17 History oxyCODONE [Roxicodone] 5 mg PO Q4HR PRN 11/18/17 11/18/17 11/17/17 History Active Meds: Active Medications Albuterol (Proventil) 2.5 mg IH Q4HRT PRN PRN Reason: Shortness Of Breath Last Admin: 09/22/17 05:42 Dose: 2.5 mg Albuterol/Ipratropium (Duoneb *Not For Prn Use*) 1 ampul IH TIDRT [facility] Last Admin: 09/22/17 07:36 Dose: 1 ampul Budesonide (Pulmicort) 0.5 mg IH Q12HRT [facility] Last Admin: 09/22/17 07:36 Dose: 0.5 mg Dextrose (D50w (25gm) Syringe) 50 ml IV PRN PRN PRN Reason: Hypoglycemia Amino Acids/Electrolytes/Dextrose (Tpn Adult) 2,016 mls @ 84 mls/hr IV DAILY@ 2000 [facility] PRN Reason: Protocol Stop: 09/22/17 19:59 Last Admin: 09/21/17 20:48 Dose: 84 mls/hr Dopamine HCl/Dextrose (Intropin Drip 800 Mg/D5w 250 Ml) 800 mg in 250 mls @ 3.109 mls/hr IV TITR ALEC; 2 MCG/KG/MIN PRN Reason: Protocol Last Admin: 09/22/17 11:19 Dose: 15 mcg/kg/min, 23.313 mls/hr Fentanyl Citrate (Fentanyl Drip Premix) 2,000 mcg in 100 mls @ 4.145 mls/hr IV TITR ALEC; 1 MCG/KG/HR PRN Reason: Protocol Insulin Aspart (Novolog) 0 units SUB-Q ACHS [facility] PRN Reason: Protocol Last Admin: 09/22/17 11:29 Dose: 5 units Insulin Detemir (Levemir) 10 units SUB-Q QHS [facility] Ondansetron HCl (Zofran) 4 mg IV Q8H PRN PRN Reason: Nausea And Vomiting Last Admin: 09/19/17 21:50 Dose: 4 mg Pantoprazole Sodium (Protonix) 40 mg PO BID [facility] Last Admin: 09/22/17 10:21 Dose: Not Given Physical Examination Vital signs: Vital Signs Pulse Ox 90 08/27/17 02:20 Results - Laboratory Findings CBC and BMP: 09/22/17 07:10 09/22/17 07:10 ABG POC ABG pH 7.392 (7.35-7.45) 09/07/17 14:57 POC ABG pCO2 42.1 (35-45) 09/07/17 14:57 POC ABG pO2 68 (80-105) L 09/07/17 14:57 POC ABG HCO3 25.6 09/07/17 14:57 POC ABG Total CO2 27 09/07/17 14:57 POC ABG O2 Sat 93 09/07/17 14:57 PT/INR, D-dimer PT 21.8 Sec. (12.2-14.9) H 08/28/17 20:01 INR 1.80 (0.87-1.13) H 08/28/17 20:01 Abnormal lab findings: Abnormal Labs 08/27/17 08/27/17 08/27/17 03:02 03:02 03:02 WBC 14.6 H RBC 3.46 L Hgb 8.4 L Hct 26.5 L MCV 77 L MCH 24 L MCHC RDW 25.8 H [place] % (Auto) [place] # Baso # Seg Neutrophils % Monocytes % (Manual) 8.0 H Nucleated RBC % 3.0 H Seg Neutrophils # Monocytes # (Manual) 1.2 H PT INR APTT Heparin Anti-Xa Level POC ABG pH POC ABG pCO2 POC ABG pO2 Sodium 136 L Potassium Chloride 93.3 L Carbon Dioxide BUN 21 H Creatinine Glucose 104 H POC Glucose Calcium Phosphorus Magnesium AST ALT 62 H Alkaline Phosphatase 133 H C-Reactive Protein Total Protein 8.5 H Albumin 3.2 L Triglycerides Urine pH Vancomycin Trough Salicylates < 0.3 L Crossmatch 08/27/17 08/27/17 08/27/17 05:00 07:43 11:20 WBC RBC Hgb Hct MCV MCH MCHC RDW [place] % (Auto) [place] # Baso # Seg Neutrophils % Monocytes % (Manual) Nucleated RBC % Seg Neutrophils # Monocytes # (Manual) PT INR APTT Heparin Anti-Xa Level POC ABG pH POC ABG pCO2 POC ABG pO2 Sodium Potassium Chloride Carbon Dioxide BUN Creatinine Glucose POC Glucose 116 H 110 H Calcium Phosphorus Magnesium AST ALT Alkaline Phosphatase C-Reactive Protein Total Protein Albumin Triglycerides Urine pH 9.0 H Vancomycin Trough Salicylates Crossmatch 08/27/17 08/27/17 08/28/17 16:36 22:00 04:41 WBC RBC Hgb Hct MCV MCH MCHC RDW [place] % (Auto) [place] # Baso # Seg Neutrophils % Monocytes % (Manual) Nucleated RBC % Seg Neutrophils # Monocytes # (Manual) PT INR APTT Heparin Anti-Xa Level POC ABG pH POC ABG pCO2 POC ABG pO2 Sodium Potassium Chloride Carbon Dioxide BUN Creatinine Glucose 139 H POC Glucose 108 H 130 H Calcium 8.2 L Phosphorus Magnesium AST ALT Alkaline Phosphatase C-Reactive Protein Total Protein Albumin Triglycerides Urine pH Vancomycin Trough Salicylates Crossmatch 08/28/17 08/28/17 08/28/17 04:41 06:46 07:16 WBC RBC Hgb Hct MCV MCH MCHC RDW [place] % (Auto) [place] # Baso # Seg Neutrophils % Monocytes % (Manual) Nucleated RBC % Seg Neutrophils # Monocytes # (Manual) PT 25.2 H INR 2.17 H APTT Heparin Anti-Xa Level POC ABG pH POC ABG pCO2 POC ABG pO2 Sodium Potassium Chloride Carbon Dioxide BUN Creatinine Glucose POC Glucose 176 H 175 H Calcium Phosphorus Magnesium AST ALT Alkaline Phosphatase C-Reactive Protein Total Protein Albumin Triglycerides Urine pH Vancomycin Trough Salicylates Crossmatch 08/28/17 08/28/17 08/28/17 11:41 16:47 20:01 WBC RBC Hgb Hct MCV MCH MCHC RDW [place] % (Auto) [place] # Baso # Seg Neutrophils % Monocytes % (Manual) Nucleated RBC % Seg Neutrophils # Monocytes # (Manual) PT 21.8 H INR 1.80 H APTT 56.5 H Heparin Anti-Xa Level POC ABG pH POC ABG pCO2 POC ABG pO2 Sodium Potassium Chloride Carbon Dioxide BUN Creatinine Glucose POC Glucose 176 H 206 H Calcium Phosphorus Magnesium AST ALT Alkaline Phosphatase C-Reactive Protein Total Protein Albumin Triglycerides Urine pH Vancomycin Trough Salicylates Crossmatch 08/28/17 08/29/17 08/29/17 20:43 00:07 02:30 WBC RBC Hgb 6.4 L Hct 20.6 L MCV MCH MCHC RDW [place] % (Auto) [place] # Baso # Seg Neutrophils % Monocytes % (Manual) Nucleated RBC % Seg Neutrophils # Monocytes # (Manual) PT INR APTT Heparin Anti-Xa Level POC ABG pH POC ABG pCO2 POC ABG pO2 Sodium Potassium Chloride Carbon Dioxide BUN Creatinine Glucose POC Glucose 259 H Calcium Phosphorus Magnesium AST ALT Alkaline Phosphatase C-Reactive Protein Total Protein Albumin Triglycerides Urine pH Vancomycin Trough Salicylates Crossmatch See Detail 08/29/17 08/29/17 08/29/17 02:56 07:25 11:40 WBC RBC Hgb Hct MCV MCH MCHC RDW [place] % (Auto) [place] # Baso # Seg Neutrophils % Monocytes % (Manual) Nucleated RBC % Seg Neutrophils # Monocytes # (Manual) PT INR APTT Heparin Anti-Xa Level POC ABG pH POC ABG pCO2 POC ABG pO2 Sodium Potassium 3.5 L Chloride Carbon Dioxide 21 L BUN 21 H Creatinine Glucose 214 H POC Glucose 220 H 174 H Calcium 8.0 L Phosphorus Magnesium 1.60 L AST ALT Alkaline Phosphatase C-Reactive Protein Total Protein Albumin Triglycerides Urine pH Vancomycin Trough Salicylates Crossmatch 08/29/17 08/29/17 08/29/17 16:10 16:40 17:48 WBC RBC Hgb 8.5 L Hct 26.7 L D MCV MCH MCHC RDW [place] % (Auto) [place] # Baso # Seg Neutrophils % Monocytes % (Manual) Nucleated RBC % Seg Neutrophils # Monocytes # (Manual) PT INR APTT Heparin Anti-Xa Level POC ABG pH POC ABG pCO2 POC ABG pO2 Sodium Potassium Chloride Carbon Dioxide BUN Creatinine Glucose POC Glucose 178 H Calcium Phosphorus Magnesium AST ALT Alkaline Phosphatase C-Reactive Protein Total Protein 3.9 L D Albumin 1.5 L Triglycerides Urine pH Vancomycin Trough Salicylates Crossmatch 08/29/17 08/29/17 08/30/17 18:32 22:19 04:25 WBC RBC Hgb 7.9 L Hct 25.2 L MCV MCH MCHC RDW [place] % (Auto) [place] # Baso # Seg Neutrophils % Monocytes % (Manual) Nucleated RBC % Seg Neutrophils # Monocytes # (Manual) PT INR APTT Heparin Anti-Xa Level POC ABG pH POC ABG pCO2 POC ABG pO2 Sodium Potassium Chloride Carbon Dioxide BUN Creatinine Glucose POC Glucose 247 H Calcium Phosphorus Magnesium AST ALT Alkaline Phosphatase C-Reactive Protein Total Protein Albumin Triglycerides Urine pH Vancomycin Trough 25.5 H Salicylates Crossmatch 08/30/17 08/30/17 08/30/17 04:25 07:53 11:53 WBC RBC Hgb Hct MCV MCH MCHC RDW [place] % (Auto) [place] # Baso # Seg Neutrophils % Monocytes % (Manual) Nucleated RBC % Seg Neutrophils # Monocytes # (Manual) PT INR APTT Heparin Anti-Xa Level POC ABG pH POC ABG pCO2 POC ABG pO2 Sodium 136 L Potassium 3.2 L Chloride Carbon Dioxide 18 L BUN 29 H Creatinine Glucose 203 H POC Glucose 193 H 246 H Calcium Phosphorus Magnesium AST ALT Alkaline Phosphatase C-Reactive Protein Total Protein Albumin Triglycerides Urine pH Vancomycin Trough Salicylates Crossmatch 08/30/17 08/30/17 08/31/17 16:47 21:36 04:28 WBC RBC Hgb Hct MCV MCH MCHC RDW [place] % (Auto) [place] # Baso # Seg Neutrophils % Monocytes % (Manual) Nucleated RBC % Seg Neutrophils # Monocytes # (Manual) PT INR APTT Heparin Anti-Xa Level POC ABG pH POC ABG pCO2 POC ABG pO2 Sodium Potassium 3.5 L Chloride 111.0 H Carbon Dioxide 19 L BUN 25 H Creatinine Glucose 53 L POC Glucose 159 H 110 H Calcium Phosphorus Magnesium AST ALT Alkaline Phosphatase C-Reactive Protein Total Protein 6.0 L D Albumin 2.2 L Triglycerides Urine pH Vancomycin Trough Salicylates Crossmatch 08/31/17 08/31/17 08/31/17 04:28 07:31 07:34 WBC RBC 2.99 L Hgb 7.8 L Hct 23.8 L MCV 80 L MCH 26 L MCHC RDW 22.7 H [place] % (Auto) 13.0 H [place] # 1.3 H Baso # Seg Neutrophils % Monocytes % (Manual) Nucleated RBC % Seg Neutrophils # Monocytes # (Manual) PT INR APTT Heparin Anti-Xa Level POC ABG pH POC ABG pCO2 POC ABG pO2 Sodium Potassium Chloride Carbon Dioxide BUN Creatinine Glucose POC Glucose < 40 L 42 L Calcium Phosphorus Magnesium AST ALT Alkaline Phosphatase C-Reactive Protein Total Protein Albumin Triglycerides Urine pH Vancomycin Trough Salicylates Crossmatch 08/31/17 08/31/17 08/31/17 09:10 16:45 22:56 WBC RBC Hgb Hct MCV MCH MCHC RDW [place] % (Auto) [place] # Baso # Seg Neutrophils % Monocytes % (Manual) Nucleated RBC % Seg Neutrophils # Monocytes # (Manual) PT INR APTT Heparin Anti-Xa Level POC ABG pH POC ABG pCO2 POC ABG pO2 Sodium Potassium Chloride Carbon Dioxide BUN Creatinine Glucose POC Glucose 64 L 173 H 167 H Calcium Phosphorus Magnesium AST ALT Alkaline Phosphatase C-Reactive Protein Total Protein Albumin Triglycerides Urine pH Vancomycin Trough Salicylates Crossmatch 09/01/17 09/01/17 09/01/17 04:05 04:05 07:26 WBC RBC Hgb 8.4 L Hct 26.3 L MCV MCH MCHC RDW [place] % (Auto) [place] # Baso # Seg Neutrophils % Monocytes % (Manual) Nucleated RBC % Seg Neutrophils # Monocytes # (Manual) PT INR APTT Heparin Anti-Xa Level POC ABG pH POC ABG pCO2 POC ABG pO2 Sodium Potassium Chloride 109.0 H Carbon Dioxide 17 L BUN 23 H Creatinine Glucose 187 H POC Glucose 256 H Calcium Phosphorus Magnesium AST ALT Alkaline Phosphatase C-Reactive Protein Total Protein Albumin Triglycerides 210 H Urine pH Vancomycin Trough Salicylates Crossmatch 09/01/17 09/01/17 09/01/17 10:43 10:43 11:53 WBC RBC Hgb Hct MCV MCH MCHC RDW [place] % (Auto) [place] # Baso # Seg Neutrophils % Monocytes % (Manual) Nucleated RBC % Seg Neutrophils # Monocytes # (Manual) PT INR APTT Heparin Anti-Xa Level POC ABG pH POC ABG pCO2 POC ABG pO2 Sodium Potassium Chloride Carbon Dioxide BUN Creatinine Glucose POC Glucose 251 H Calcium Phosphorus Magnesium AST ALT Alkaline Phosphatase C-Reactive Protein 28.80 H Total Protein Albumin Triglycerides Urine pH Vancomycin Trough 27.7 H Salicylates Crossmatch 09/01/17 09/01/17 09/01/17 17:05 20:46 Unknown WBC RBC Hgb Hct MCV MCH MCHC RDW [place] % (Auto) [place] # Baso # Seg Neutrophils % Monocytes % (Manual) Nucleated RBC % Seg Neutrophils # Monocytes # (Manual) PT INR APTT Heparin Anti-Xa Level 0.11 L POC ABG pH 7.485 H POC ABG pCO2 25.0 L POC ABG pO2 Sodium Potassium Chloride Carbon Dioxide BUN Creatinine Glucose POC Glucose 180 H Calcium Phosphorus Magnesium AST ALT Alkaline Phosphatase C-Reactive Protein Total Protein Albumin Triglycerides Urine pH Vancomycin Trough Salicylates Crossmatch 09/02/17 09/02/17 09/02/17 01:02 05:15 05:15 WBC RBC Hgb Hct MCV MCH MCHC RDW [place] % (Auto) [place] # Baso # Seg Neutrophils % Monocytes % (Manual) Nucleated RBC % Seg Neutrophils # Monocytes # (Manual) PT INR APTT Heparin Anti-Xa Level 0.13 L POC ABG pH POC ABG pCO2 POC ABG pO2 Sodium Potassium Chloride 110.3 H Carbon Dioxide 19 L BUN 23 H Creatinine Glucose 172 H POC Glucose 222 H Calcium Phosphorus Magnesium AST ALT Alkaline Phosphatase C-Reactive Protein Total Protein Albumin Triglycerides Urine pH Vancomycin Trough Salicylates Crossmatch 09/02/17 09/02/17 09/02/17 07:46 10:03 11:41 WBC RBC Hgb Hct MCV MCH MCHC RDW [place] % (Auto) [place] # Baso # Seg Neutrophils % Monocytes % (Manual) Nucleated RBC % Seg Neutrophils # Monocytes # (Manual) PT INR APTT Heparin Anti-Xa Level < 0.10 L POC ABG pH POC ABG pCO2 POC ABG pO2 Sodium Potassium Chloride Carbon Dioxide BUN Creatinine Glucose POC Glucose 217 H 211 H Calcium Phosphorus Magnesium AST ALT Alkaline Phosphatase C-Reactive Protein Total Protein Albumin Triglycerides Urine pH Vancomycin Trough Salicylates Crossmatch 09/02/17 09/02/17 09/02/17 16:43 19:24 22:06 WBC RBC Hgb Hct MCV MCH MCHC RDW [place] % (Auto) [place] # Baso # Seg Neutrophils % Monocytes % (Manual) Nucleated RBC % Seg Neutrophils # Monocytes # (Manual) PT INR APTT Heparin Anti-Xa Level 0.19 L POC ABG pH POC ABG pCO2 POC ABG pO2 Sodium Potassium Chloride Carbon Dioxide BUN Creatinine Glucose POC Glucose 247 H 196 H Calcium Phosphorus Magnesium AST ALT Alkaline Phosphatase C-Reactive Protein Total Protein Albumin Triglycerides Urine pH Vancomycin Trough Salicylates Crossmatch 09/03/17 09/03/17 09/03/17 04:50 04:50 08:02 WBC RBC 2.80 L Hgb 7.1 L Hct 22.5 L MCV 80 L MCH 25 L MCHC 31 L RDW 22.7 H [place] % (Auto) 7.6 H [place] # Baso # Seg Neutrophils % Monocytes % (Manual) Nucleated RBC % Seg Neutrophils # Monocytes # (Manual) PT INR APTT Heparin Anti-Xa Level POC ABG pH POC ABG pCO2 POC ABG pO2 Sodium Potassium Chloride 109.7 H Carbon Dioxide 20 L BUN 27 H Creatinine Glucose 193 H POC Glucose 226 H Calcium Phosphorus Magnesium AST ALT Alkaline Phosphatase 140 H C-Reactive Protein Total Protein Albumin 2.4 L Triglycerides Urine pH Vancomycin Trough Salicylates Crossmatch 09/03/17 09/03/17 09/03/17 11:54 16:26 22:03 WBC RBC Hgb Hct MCV MCH MCHC RDW [place] % (Auto) [place] # Baso # Seg Neutrophils % Monocytes % (Manual) Nucleated RBC % Seg Neutrophils # Monocytes # (Manual) PT INR APTT Heparin Anti-Xa Level POC ABG pH POC ABG pCO2 POC ABG pO2 Sodium Potassium Chloride Carbon Dioxide BUN Creatinine Glucose POC Glucose 221 H 123 H 206 H Calcium Phosphorus Magnesium AST ALT Alkaline Phosphatase C-Reactive Protein Total Protein Albumin Triglycerides Urine pH Vancomycin Trough Salicylates Crossmatch 09/04/17 09/04/17 09/04/17 07:56 11:35 16:30 WBC RBC Hgb Hct MCV MCH MCHC RDW [place] % (Auto) [place] # Baso # Seg Neutrophils % Monocytes % (Manual) Nucleated RBC % Seg Neutrophils # Monocytes # (Manual) PT INR APTT Heparin Anti-Xa Level POC ABG pH POC ABG pCO2 POC ABG pO2 Sodium Potassium Chloride Carbon Dioxide BUN Creatinine Glucose POC Glucose 205 H 263 H 158 H Calcium Phosphorus Magnesium AST ALT Alkaline Phosphatase C-Reactive Protein Total Protein Albumin Triglycerides Urine pH Vancomycin Trough Salicylates Crossmatch 09/04/17 09/05/17 09/05/17 22:33 08:00 08:00 WBC 12.5 H RBC 2.81 L Hgb 6.9 L Hct 22.6 L MCV 81 L MCH 24 L MCHC 30 L RDW 22.4 H [place] % (Auto) 8.0 H [place] # 1.0 H Baso # Seg Neutrophils % Monocytes % (Manual) Nucleated RBC % Seg Neutrophils # Monocytes # (Manual) PT INR APTT Heparin Anti-Xa Level POC ABG pH POC ABG pCO2 POC ABG pO2 Sodium Potassium Chloride 109.0 H Carbon Dioxide 20 L BUN 27 H Creatinine Glucose 219 H POC Glucose 217 H Calcium Phosphorus Magnesium AST ALT Alkaline Phosphatase 169 H C-Reactive Protein Total Protein Albumin 2.4 L Triglycerides Urine pH Vancomycin Trough Salicylates Crossmatch 09/05/17 09/05/17 09/05/17 11:58 15:52 22:35 WBC RBC Hgb Hct MCV MCH MCHC RDW [place] % (Auto) [place] # Baso # Seg Neutrophils % Monocytes % (Manual) Nucleated RBC % Seg Neutrophils # Monocytes # (Manual) PT INR APTT Heparin Anti-Xa Level POC ABG pH POC ABG pCO2 POC ABG pO2 Sodium Potassium Chloride Carbon Dioxide BUN Creatinine Glucose POC Glucose 251 H 200 H 259 H Calcium Phosphorus Magnesium AST ALT Alkaline Phosphatase C-Reactive Protein Total Protein Albumin Triglycerides Urine pH Vancomycin Trough Salicylates Crossmatch 09/05/17 09/06/17 09/06/17 23:55 08:19 09:32 WBC 12.0 H RBC 2.75 L 2.93 L Hgb 7.0 L 7.1 L Hct 22.2 L 23.5 L MCV 81 L 80 L MCH 25 L 24 L MCHC 31 L 30 L RDW 23.1 H 22.4 H [place] % (Auto) [place] # Baso # Seg Neutrophils % Monocytes % (Manual) Nucleated RBC % Seg Neutrophils # 8.1 H Monocytes # (Manual) PT INR APTT Heparin Anti-Xa Level POC ABG pH POC ABG pCO2 POC ABG pO2 Sodium Potassium Chloride Carbon Dioxide BUN Creatinine Glucose POC Glucose 210 H Calcium Phosphorus Magnesium AST ALT Alkaline Phosphatase C-Reactive Protein Total Protein Albumin Triglycerides Urine pH Vancomycin Trough Salicylates Crossmatch 09/06/17 09/06/17 09/06/17 12:08 16:15 21:17 WBC RBC 2.83 L Hgb 7.2 L Hct 22.9 L MCV 81 L MCH 25 L MCHC 31 L RDW 22.4 H [place] % (Auto) 8.1 H [place] # Baso # Seg Neutrophils % Monocytes % (Manual) Nucleated RBC % Seg Neutrophils # Monocytes # (Manual) PT INR APTT Heparin Anti-Xa Level POC ABG pH POC ABG pCO2 POC ABG pO2 Sodium Potassium Chloride Carbon Dioxide BUN Creatinine Glucose POC Glucose 179 H 157 H Calcium Phosphorus Magnesium AST ALT Alkaline Phosphatase C-Reactive Protein Total Protein Albumin Triglycerides Urine pH Vancomycin Trough Salicylates Crossmatch 09/06/17 09/07/17 09/07/17 23:17 07:40 07:40 WBC RBC 2.81 L Hgb 7.2 L Hct 22.4 L MCV 80 L MCH 26 L MCHC RDW 23.0 H [place] % (Auto) [place] # Baso # Seg Neutrophils % 73.7 H Mon[place] % (Manual) Nucleated RBC % Seg Neutrophils # Monocytes # (Manual) PT INR APTT Heparin Anti-Xa Level POC ABG pH POC ABG pCO2 POC ABG pO2 Sodium Potassium Chloride 108.0 H Carbon Dioxide 21 L BUN Creatinine Glucose 186 H POC Glucose 195 H Calcium Phosphorus Magnesium AST ALT Alkaline Phosphatase 143 H C-Reactive Protein Total Protein Albumin 2.5 L Triglycerides Urine pH Vancomycin Trough Salicylates Crossmatch 09/07/17 09/07/17 09/07/17 07:40 08:40 11:35 WBC RBC Hgb Hct MCV MCH MCHC RDW [place] % (Auto) [place] # Baso # Seg Neutrophils % Monocytes % (Manual) Nucleated RBC % Seg Neutrophils # Monocytes # (Manual) PT INR APTT Heparin Anti-Xa Level POC ABG pH POC ABG pCO2 POC ABG pO2 Sodium Potassium Chloride 109.1 H Carbon Dioxide 21 L BUN Creatinine Glucose 183 H POC Glucose 218 H 229 H Calcium Phosphorus Magnesium AST ALT Alkaline Phosphatase 141 H C-Reactive Protein Total Protein Albumin 2.6 L Triglycerides Urine pH Vancomycin Trough Salicylates Crossmatch 09/07/17 09/07/17 09/07/17 14:57 16:35 21:30 WBC RBC 2.56 L Hgb 6.6 L Hct 20.5 L MCV 80 L MCH 26 L MCHC RDW 22.5 H [place] % (Auto) 8.1 H [place] # 0.9 H Baso # 0.2 H Seg Neutrophils % Monocytes % (Manual) Nucleated RBC % Seg Neutrophils # Monocytes # (Manual) PT INR APTT Heparin Anti-Xa Level POC ABG pH POC ABG pCO2 POC ABG pO2 68 L Sodium Potassium Chloride Carbon Dioxide BUN Creatinine Glucose POC Glucose 256 H Calcium Phosphorus Magnesium AST ALT Alkaline Phosphatase C-Reactive Protein Total Protein Albumin Triglycerides Urine pH Vancomycin Trough Salicylates Crossmatch 09/07/17 09/08/17 09/08/17 22:35 08:13 11:50 WBC RBC Hgb Hct MCV MCH MCHC RDW [place] % (Auto) [place] # Baso # Seg Neutrophils % Monocytes % (Manual) Nucleated RBC % Seg Neutrophils # Monocytes # (Manual) PT INR APTT Heparin Anti-Xa Level POC ABG pH POC ABG pCO2 POC ABG pO2 Sodium Potassium Chloride Carbon Dioxide BUN Creatinine Glucose POC Glucose 230 H 213 H 206 H Calcium Phosphorus Magnesium AST ALT Alkaline Phosphatase C-Reactive Protein Total Protein Albumin Triglycerides Urine pH Vancomycin Trough Salicylates Crossmatch 09/08/17 09/08/17 09/08/17 17:14 20:45 20:50 WBC 12.3 H RBC 2.74 L Hgb 6.7 L Hct 21.8 L MCV 79 L MCH 24 L MCHC 31 L RDW 23.0 H [place] % (Auto) 7.7 H [place] # 0.9 H Baso # Seg Neutrophils % Monocytes % (Manual) Nucleated RBC % Seg Neutrophils # Monocytes # (Manual) PT INR APTT Heparin Anti-Xa Level 0.15 L POC ABG pH POC ABG pCO2 POC ABG pO2 Sodium Potassium Chloride Carbon Dioxide BUN Creatinine Glucose POC Glucose 210 H Calcium Phosphorus Magnesium AST ALT Alkaline Phosphatase C-Reactive Protein Total Protein Albumin Triglycerides Urine pH Vancomycin Trough Salicylates Crossmatch 09/08/17 09/09/17 09/09/17 22:08 06:50 06:50 WBC RBC 2.64 L Hgb 6.6 L Hct 21.2 L MCV 80 L MCH 25 L MCHC 31 L RDW 22.7 H [place] % (Auto) 9.3 H [place] # 1.0 H Baso # Seg Neutrophils % Monocytes % (Manual) Nucleated RBC % Seg Neutrophils # Monocytes # (Manual) PT INR APTT Heparin Anti-Xa Level POC ABG pH POC ABG pCO2 POC ABG pO2 Sodium 136 L Potassium Chloride Carbon Dioxide BUN Creatinine 0.7 L Glucose 182 H POC Glucose 217 H Calcium Phosphorus Magnesium AST ALT Alkaline Phosphatase C-Reactive Protein Total Protein Albumin 2.5 L Triglycerides Urine pH Vancomycin Trough Salicylates Crossmatch 09/09/17 09/09/17 09/09/17 08:00 11:24 16:40 WBC RBC Hgb Hct MCV MCH MCHC RDW [place] % (Auto) [place] # Baso # Seg Neutrophils % Monocytes % (Manual) Nucleated RBC % Seg Neutrophils # Monocytes # (Manual) PT INR APTT Heparin Anti-Xa Level POC ABG pH POC ABG pCO2 POC ABG pO2 Sodium Potassium Chloride Carbon Dioxide BUN Creatinine Glucose POC Glucose 245 H 257 H 220 H Calcium Phosphorus Magnesium AST ALT Alkaline Phosphatase C-Reactive Protein Total Protein Albumin Triglycerides Urine pH Vancomycin Trough Salicylates Crossmatch 09/09/17 09/09/17 09/09/17 17:50 19:14 19:14 WBC RBC 5.12 H Hgb Hct MCV 80 L MCH 25 L MCHC 31 L RDW 23.3 H [place] % (Auto) [place] # Baso # Seg Neutrophils % Monocytes % (Manual) Nucleated RBC % Seg Neutrophils # Monocytes # (Manual) PT INR APTT Heparin Anti-Xa Level < 0.10 L < 0.10 L POC ABG pH POC ABG pCO2 POC ABG pO2 Sodium Potassium Chloride Carbon Dioxide BUN Creatinine Glucose POC Glucose Calcium Phosphorus Magnesium AST ALT Alkaline Phosphatase C-Reactive Protein Total Protein Albumin Triglycerides Urine pH Vancomycin Trough Salicylates Crossmatch 09/09/17 09/10/17 09/10/17 23:50 03:55 03:55 WBC 11.1 H RBC 2.59 L Hgb 6.7 L D Hct 20.9 L D MCV 81 L MCH 26 L MCHC RDW 22.6 H [place] % (Auto) 8.7 H [place] # 1.0 H Baso # Seg Neutrophils % Monocytes % (Manual) Nucleated RBC % Seg Neutrophils # Monocytes # (Manual) PT INR APTT Heparin Anti-Xa Level POC ABG pH POC ABG pCO2 POC ABG pO2 Sodium Potassium Chloride Carbon Dioxide BUN Creatinine 0.7 L Glucose 191 H POC Glucose 192 H Calcium Phosphorus Magnesium AST ALT Alkaline Phosphatase C-Reactive Protein Total Protein Albumin Triglycerides Urine pH Vancomycin Trough Salicylates Crossmatch 09/10/17 09/10/17 09/10/17 08:39 11:33 14:30 WBC RBC Hgb 6.1 L Hct 19.8 L* MCV MCH MCHC RDW [place] % (Auto) [place] # Baso # Seg Neutrophils % Monocytes % (Manual) Nucleated RBC % Seg Neutrophils # Monocytes # (Manual) PT INR APTT Heparin Anti-Xa Level POC ABG pH POC ABG pCO2 POC ABG pO2 Sodium Potassium Chloride Carbon Dioxide BUN Creatinine Glucose POC Glucose 233 H 231 H Calcium Phosphorus Magnesium AST ALT Alkaline Phosphatase C-Reactive Protein Total Protein Albumin Triglycerides Urine pH Vancomycin Trough Salicylates Crossmatch 09/10/17 09/10/17 09/10/17 16:20 16:50 21:25 WBC RBC Hgb Hct MCV MCH MCHC RDW [place] % (Auto) [place] # Baso # Seg Neutrophils % Monocytes % (Manual) Nucleated RBC % Seg Neutrophils # Monocytes # (Manual) PT INR APTT Heparin Anti-Xa Level POC ABG pH POC ABG pCO2 POC ABG pO2 Sodium Potassium Chloride Carbon Dioxide BUN Creatinine Glucose POC Glucose 189 H 113 H Calcium Phosphorus Magnesium AST ALT Alkaline Phosphatase C-Reactive Protein Total Protein Albumin Triglycerides Urine pH Vancomycin Trough Salicylates Crossmatch See Detail 09/11/17 09/11/17 09/11/17 04:27 08:06 11:32 WBC RBC Hgb Hct MCV MCH MCHC RDW [place] % (Auto) [place] # Baso # Seg Neutrophils % Monocytes % (Manual) Nucleated RBC % Seg Neutrophils # Monocytes # (Manual) PT INR APTT Heparin Anti-Xa Level POC ABG pH POC ABG pCO2 POC ABG pO2 Sodium Potassium Chloride Carbon Dioxide BUN Creatinine Glucose 174 H POC Glucose 232 H 298 H Calcium Phosphorus Magnesium AST ALT Alkaline Phosphatase C-Reactive Protein Total Protein Albumin Triglycerides Urine pH Vancomycin Trough Salicylates Crossmatch 09/11/17 09/11/17 09/11/17 14:18 14:20 17:34 WBC RBC Hgb 8.3 L Hct 25.6 L MCV MCH MCHC RDW [place] % (Auto) [place] # Baso # Seg Neutrophils % Monocytes % (Manual) Nucleated RBC % Seg Neutrophils # Monocytes # (Manual) PT INR APTT Heparin Anti-Xa Level < 0.10 L POC ABG pH POC ABG pCO2 POC ABG pO2 Sodium Potassium Chloride Carbon Dioxide BUN Creatinine Glucose POC Glucose 184 H Calcium Phosphorus Magnesium AST ALT Alkaline Phosphatase C-Reactive Protein Total Protein Albumin Triglycerides Urine pH Vancomycin Trough Salicylates Crossmatch 09/11/17 09/11/17 09/12/17 20:11 22:15 06:08 WBC RBC 3.33 L Hgb 8.6 L Hct 26.9 L MCV 81 L MCH 26 L MCHC RDW 20.3 H [place] % (Auto) 8.9 H [place] # Baso # Seg Neutrophils % Monocytes % (Manual) Nucleated RBC % Seg Neutrophils # Monocytes # (Manual) PT INR APTT Heparin Anti-Xa Level POC ABG pH POC ABG pCO2 POC ABG pO2 Sodium Potassium Chloride Carbon Dioxide BUN 22 H Creatinine Glucose 186 H POC Glucose 184 H Calcium Phosphorus Magnesium AST ALT Alkaline Phosphatase C-Reactive Protein Total Protein Albumin Triglycerides Urine pH Vancomycin Trough Salicylates Crossmatch 09/12/17 09/12/17 09/12/17 08:09 11:20 17:49 WBC RBC Hgb Hct MCV MCH MCHC RDW [place] % (Auto) [place] # Baso # Seg Neutrophils % Monocytes % (Manual) Nucleated RBC % Seg Neutrophils # Monocytes # (Manual) PT INR APTT Heparin Anti-Xa Level POC ABG pH POC ABG pCO2 POC ABG pO2 Sodium Potassium Chloride Carbon Dioxide BUN Creatinine Glucose POC Glucose 228 H 238 H 197 H Calcium Phosphorus Magnesium AST ALT Alkaline Phosphatase C-Reactive Protein Total Protein Albumin Triglycerides Urine pH Vancomycin Trough Salicylates Crossmatch 09/12/17 09/13/17 09/13/17 22:50 03:25 07:30 WBC RBC Hgb Hct MCV MCH MCHC RDW [place] % (Auto) [place] # Baso # Seg Neutrophils % Monocytes % (Manual) Nucleated RBC % Seg Neutrophils # Monocytes # (Manual) PT INR APTT Heparin Anti-Xa Level POC ABG pH POC ABG pCO2 POC ABG pO2 Sodium Potassium Chloride 97.5 L Carbon Dioxide BUN 22 H Creatinine Glucose 192 H POC Glucose 186 H 210 H Calcium Phosphorus Magnesium AST ALT Alkaline Phosphatase C-Reactive Protein Total Protein Albumin Triglycerides Urine pH Vancomycin Trough Salicylates Crossmatch 09/13/17 09/13/17 09/13/17 11:55 16:56 23:57 WBC RBC Hgb Hct MCV MCH MCHC RDW [place] % (Auto) [place] # Baso # Seg Neutrophils % Monocytes % (Manual) Nucleated RBC % Seg Neutrophils # Monocytes # (Manual) PT INR APTT Heparin Anti-Xa Level POC ABG pH POC ABG pCO2 POC ABG pO2 Sodium Potassium Chloride Carbon Dioxide BUN Creatinine Glucose POC Glucose 224 H 179 H 153 H Calcium Phosphorus Magnesium AST ALT Alkaline Phosphatase C-Reactive Protein Total Protein Albumin Triglycerides Urine pH Vancomycin Trough Salicylates Crossmatch 09/14/17 09/14/17 09/14/17 04:04 06:20 08:34 WBC RBC Hgb Hct MCV MCH MCHC RDW [place] % (Auto) [place] # Baso # Seg Neutrophils % Monocytes % (Manual) Nucleated RBC % Seg Neutrophils # Monocytes # (Manual) PT INR APTT Heparin Anti-Xa Level 0.72 H POC ABG pH POC ABG pCO2 POC ABG pO2 Sodium Potassium Chloride Carbon Dioxide BUN 24 H Creatinine Glucose 198 H POC Glucose 205 H Calcium Phosphorus Magnesium AST ALT Alkaline Phosphatase C-Reactive Protein Total Protein Albumin Triglycerides Urine pH Vancomycin Trough Salicylates Crossmatch 09/14/17 09/14/17 09/14/17 11:28 15:33 23:06 WBC RBC Hgb Hct MCV MCH MCHC RDW [place] % (Auto) [place] # Baso # Seg Neutrophils % Monocytes % (Manual) Nucleated RBC % Seg Neutrophils # Monocytes # (Manual) PT INR APTT Heparin Anti-Xa Level POC ABG pH POC ABG pCO2 POC ABG pO2 Sodium Potassium Chloride Carbon Dioxide BUN Creatinine Glucose POC Glucose 205 H 187 H 177 H Calcium Phosphorus Magnesium AST ALT Alkaline Phosphatase C-Reactive Protein Total Protein Albumin Triglycerides Urine pH Vancomycin Trough Salicylates Crossmatch 09/15/17 09/15/17 09/15/17 04:00 07:52 12:00 WBC RBC Hgb Hct MCV MCH MCHC RDW [place] % (Auto) [place] # Baso # Seg Neutrophils % Monocytes % (Manual) Nucleated RBC % Seg Neutrophils # Monocytes # (Manual) PT INR APTT Heparin Anti-Xa Level POC ABG pH POC ABG pCO2 POC ABG pO2 Sodium Potassium Chloride Carbon Dioxide BUN 29 H Creatinine Glucose 212 H POC Glucose 254 H 236 H Calcium Phosphorus Magnesium AST ALT Alkaline Phosphatase C-Reactive Protein Total Protein Albumin Triglycerides Urine pH Vancomycin Trough Salicylates Crossmatch 09/15/17 09/15/17 09/15/17 13:28 17:07 17:58 WBC RBC 3.38 L Hgb 8.6 L Hct 27.4 L MCV 81 L MCH 26 L MCHC 31 L RDW 19.7 H [place] % (Auto) [place] # Baso # Seg Neutrophils % 70.1 H Monocytes % (Manual) Nucleated RBC % Seg Neutrophils # Monocytes # (Manual) PT INR APTT Heparin Anti-Xa Level POC ABG pH POC ABG pCO2 POC ABG pO2 Sodium Potassium Chloride Carbon Dioxide BUN Creatinine Glucose POC Glucose 203 H 208 H Calcium Phosphorus Magnesium AST ALT Alkaline Phosphatase C-Reactive Protein Total Protein Albumin Triglycerides Urine pH Vancomycin Trough Salicylates Crossmatch 09/15/17 09/16/17 09/16/17 22:42 07:28 07:44 WBC RBC Hgb Hct MCV MCH MCHC RDW [place] % (Auto) [place] # Baso # Seg Neutrophils % Monocytes % (Manual) Nucleated RBC % Seg Neutrophils # Monocytes # (Manual) PT INR APTT Heparin Anti-Xa Level POC ABG pH POC ABG pCO2 POC ABG pO2 Sodium Potassium Chloride Carbon Dioxide BUN 44 H Creatinine Glucose 159 H POC Glucose 171 H 172 H Calcium Phosphorus Magnesium AST ALT Alkaline Phosphatase C-Reactive Protein Total Protein Albumin Triglycerides Urine pH Vancomycin Trough Salicylates Crossmatch 09/16/17 09/16/17 09/16/17 11:45 16:41 21:41 WBC RBC Hgb Hct MCV MCH MCHC RDW [place] % (Auto) [place] # Baso # Seg Neutrophils % Monocytes % (Manual) Nucleated RBC % Seg Neutrophils # Monocytes # (Manual) PT INR APTT Heparin Anti-Xa Level POC ABG pH POC ABG pCO2 POC ABG pO2 Sodium Potassium Chloride Carbon Dioxide BUN Creatinine Glucose POC Glucose 190 H 186 H 137 H Calcium Phosphorus Magnesium AST ALT Alkaline Phosphatase C-Reactive Protein Total Protein Albumin Triglycerides Urine pH Vancomycin Trough Salicylates Crossmatch 09/17/17 09/17/17 09/17/17 04:30 04:40 05:27 WBC RBC Hgb 7.3 L Hct 22.7 L MCV MCH MCHC RDW [place] % (Auto) [place] # Baso # Seg Neutrophils % Monocytes % (Manual) Nucleated RBC % Seg Neutrophils # Monocytes # (Manual) PT INR APTT Heparin Anti-Xa Level POC ABG pH POC ABG pCO2 POC ABG pO2 Sodium Potassium Chloride Carbon Dioxide BUN 45 H Creatinine Glucose 166 H POC Glucose Calcium Phosphorus Magnesium AST ALT Alkaline Phosphatase C-Reactive Protein Total Protein Albumin Triglycerides Urine pH Vancomycin Trough Salicylates Crossmatch See Detail 09/17/17 09/17/17 09/17/17 07:54 11:59 16:28 WBC RBC Hgb Hct MCV MCH MCHC RDW [place] % (Auto) [place] # Baso # Seg Neutrophils % Monocytes % (Manual) Nucleated RBC % Seg Neutrophils # Monocytes # (Manual) PT INR APTT Heparin Anti-Xa Level POC ABG pH POC ABG pCO2 POC ABG pO2 Sodium Potassium Chloride Carbon Dioxide BUN Creatinine Glucose POC Glucose 189 H 185 H 158 H Calcium Phosphorus Magnesium AST ALT Alkaline Phosphatase C-Reactive Protein Total Protein Albumin Triglycerides Urine pH Vancomycin Trough Salicylates Crossmatch 09/17/17 09/18/17 09/18/17 22:27 07:18 11:52 WBC RBC Hgb Hct MCV MCH MCHC RDW [place] % (Auto) [place] # Baso # Seg Neutrophils % Monocytes % (Manual) Nucleated RBC % Seg Neutrophils # Monocytes # (Manual) PT INR APTT Heparin Anti-Xa Level POC ABG pH POC ABG pCO2 POC ABG pO2 Sodium Potassium Chloride Carbon Dioxide BUN Creatinine Glucose POC Glucose 174 H 314 H 312 H Calcium Phosphorus Magnesium AST ALT Alkaline Phosphatase C-Reactive Protein Total Protein Albumin Triglycerides Urine pH Vancomycin Trough Salicylates Crossmatch 09/18/17 09/18/17 09/18/17 16:49 22:50 Unknown WBC RBC Hgb 10.8 L Hct 33.3 L MCV MCH MCHC RDW [place] % (Auto) [place] # Baso # Seg Neutrophils % Monocytes % (Manual) Nucleated RBC % Seg Neutrophils # Monocytes # (Manual) PT INR APTT Heparin Anti-Xa Level POC ABG pH POC ABG pCO2 POC ABG pO2 Sodium Potassium Chloride Carbon Dioxide BUN Creatinine Glucose POC Glucose 235 H 191 H Calcium Phosphorus Magnesium AST ALT Alkaline Phosphatase C-Reactive Protein Total Protein Albumin Triglycerides Urine pH Vancomycin Trough Salicylates Crossmatch 09/18/17 09/18/17 09/19/17 Unknown Unknown 07:34 WBC RBC Hgb 11.0 L D Hct 32.9 L D MCV 83 L MCH MCHC RDW 19.3 H [place] % (Auto) [place] # Baso # Seg Neutrophils % Monocytes % (Manual) Nucleated RBC % Seg Neutrophils # Monocytes # (Manual) PT INR APTT Heparin Anti-Xa Level POC ABG pH POC ABG pCO2 POC ABG pO2 Sodium Potassium Chloride Carbon Dioxide BUN 37 H Creatinine Glucose 275 H POC Glucose 266 H Calcium Phosphorus Magnesium AST ALT Alkaline Phosphatase C-Reactive Protein Total Protein Albumin 2.2 L Triglycerides Urine pH Vancomycin Trough Salicylates Crossmatch 09/19/17 09/19/17 09/19/17 10:15 11:23 11:26 WBC RBC Hgb 10.4 L Hct 31.7 L MCV MCH MCHC RDW 19.3 H [place] % (Auto) 8.1 H [place] # Baso # Seg Neutrophils % Monocytes % (Manual) Nucleated RBC % Seg Neutrophils # Monocytes # (Manual) PT INR APTT Heparin Anti-Xa Level POC ABG pH POC ABG pCO2 POC ABG pO2 Sodium Potassium Chloride Carbon Dioxide 21 L BUN 50 H Creatinine Glucose 263 H POC Glucose 284 H Calcium Phosphorus Magnesium AST 50 H ALT 78 H Alkaline Phosphatase C-Reactive Protein Total Protein Albumin 2.5 L Triglycerides Urine pH Vancomycin Trough Salicylates Crossmatch 09/19/17 09/19/17 09/20/17 17:20 22:25 03:15 WBC RBC Hgb Hct MCV MCH MCHC RDW [place] % (Auto) [place] # Baso # Seg Neutrophils % Monocytes % (Manual) Nucleated RBC % Seg Neutrophils # Monocytes # (Manual) PT INR APTT Heparin Anti-Xa Level POC ABG pH POC ABG pCO2 POC ABG pO2 Sodium Potassium Chloride Carbon Dioxide BUN 50 H Creatinine Glucose 217 H POC Glucose 143 H 223 H Calcium Phosphorus Magnesium AST 222 H ALT 335 H Alkaline Phosphatase C-Reactive Protein Total Protein 6.0 L Albumin 2.3 L Triglycerides Urine pH Vancomycin Trough Salicylates Crossmatch 09/20/17 09/20/17 09/20/17 03:15 07:40 11:35 WBC RBC 3.22 L Hgb 8.9 L Hct 27.4 L MCV MCH MCHC RDW 19.6 H [place] % (Auto) 10.5 H [place] # 0.9 H Baso # Seg Neutrophils % Monocytes % (Manual) Nucleated RBC % Seg Neutrophils # Monocytes # (Manual) PT INR APTT Heparin Anti-Xa Level POC ABG pH POC ABG pCO2 POC ABG pO2 Sodium Potassium Chloride Carbon Dioxide BUN Creatinine Glucose POC Glucose 187 H 267 H Calcium Phosphorus Magnesium AST ALT Alkaline Phosphatase C-Reactive Protein Total Protein Albumin Triglycerides Urine pH Vancomycin Trough Salicylates Crossmatch 09/20/17 09/20/17 09/21/17 16:42 22:14 05:20 WBC RBC Hgb Hct MCV MCH MCHC RDW [place] % (Auto) [place] # Baso # Seg Neutrophils % Monocytes % (Manual) Nucleated RBC % Seg Neutrophils # Monocytes # (Manual) PT INR APTT Heparin Anti-Xa Level POC ABG pH POC ABG pCO2 POC ABG pO2 Sodium 136 L Potassium Chloride Carbon Dioxide 21 L BUN 71 H Creatinine 1.8 H D Glucose 279 H POC Glucose 264 H 289 H Calcium Phosphorus Magnesium 2.40 H AST ALT Alkaline Phosphatase C-Reactive Protein Total Protein Albumin Triglycerides Urine pH Vancomycin Trough Salicylates Crossmatch 09/21/17 09/21/17 09/21/17 07:22 10:51 10:51 WBC RBC 3.06 L Hgb 8.5 L Hct 26.1 L MCV MCH MCHC RDW 19.7 H [place] % (Auto) 8.3 H [place] # Baso # Seg Neutrophils % Monocytes % (Manual) Nucleated RBC % Seg Neutrophils # Monocytes # (Manual) PT INR APTT Heparin Anti-Xa Level POC ABG pH POC ABG pCO2 POC ABG pO2 Sodium Potassium Chloride Carbon Dioxide 19 L BUN 71 H Creatinine 2.0 H Glucose 265 H POC Glucose 341 H Calcium Phosphorus Magnesium AST ALT 132 H Alkaline Phosphatase C-Reactive Protein Total Protein 6.0 L Albumin 2.3 L Triglycerides Urine pH Vancomycin Trough Salicylates Crossmatch 09/21/17 09/21/17 09/21/17 11:38 16:25 22:57 WBC RBC Hgb Hct MCV MCH MCHC RDW [place] % (Auto) [place] # Baso # Seg Neutrophils % Monocytes % (Manual) Nucleated RBC % Seg Neutrophils # Monocytes # (Manual) PT INR APTT Heparin Anti-Xa Level POC ABG pH POC ABG pCO2 POC ABG pO2 Sodium Potassium Chloride Carbon Dioxide BUN Creatinine Glucose POC Glucose 324 H 284 H 247 H Calcium Phosphorus Magnesium AST ALT Alkaline Phosphatase C-Reactive Protein Total Protein Albumin Triglycerides Urine pH Vancomycin Trough Salicylates Crossmatch 09/22/17 09/22/17 09/22/17 04:30 04:30 04:31 WBC RBC Hgb Hct MCV MCH MCHC RDW [place] % (Auto) [place] # Baso # Seg Neutrophils % Monocytes % (Manual) Nucleated RBC % Seg Neutrophils # Monocytes # (Manual) PT INR APTT Heparin Anti-Xa Level POC ABG pH POC ABG pCO2 POC ABG pO2 Sodium 136 L Potassium Chloride Carbon Dioxide 18 L BUN 87 H Creatinine 2.3 H Glucose 331 H POC Glucose 309 H Calcium Phosphorus 5.20 H Magnesium 2.60 H AST ALT 96 H Alkaline Phosphatase C-Reactive Protein Total Protein Albumin 2.6 L Triglycerides Urine pH Vancomycin Trough Salicylates Crossmatch 09/22/17 09/22/17 09/22/17 07:10 07:21 08:43 WBC RBC 2.93 L Hgb 9.6 L Hct 28.1 L MCV 96 H MCH 33 H MCHC RDW 20.5 H [place] % (Auto) [place] # Baso # Seg Neutrophils % 79.5 H Monocytes % (Manual) Nucleated RBC % Seg Neutrophils # Monocytes # (Manual) PT INR APTT Heparin Anti-Xa Level POC ABG pH POC ABG pCO2 POC ABG pO2 Sodium Potassium Chloride Carbon Dioxide BUN Creatinine Glucose POC Glucose 325 H 341 H Calcium Phosphorus Magnesium AST ALT Alkaline Phosphatase C-Reactive Protein Total Protein Albumin Triglycerides Urine pH Vancomycin Trough Salicylates Crossmatch 09/22/17 11:28 WBC RBC Hgb Hct MCV MCH MCHC RDW [place] % (Auto) [place] # Baso # Seg Neutrophils % Monocytes % (Manual) Nucleated RBC % Seg Neutrophils # Monocytes # (Manual) PT INR APTT Heparin Anti-Xa Level POC ABG pH POC ABG pCO2 POC ABG pO2 Sodium Potassium Chloride Carbon Dioxide BUN Creatinine Glucose POC Glucose 384 H Calcium Phosphorus Magnesium AST ALT Alkaline Phosphatase C-Reactive Protein Total Protein Albumin Triglycerides Urine pH Vancomycin Trough Salicylates Crossmatch
--- NOTE | 2017-09-22 13:04 | Progress Note ---
Assessment and Plan - Patient Problems (1) Deep vein blood clot of left lower extremity Current Visit: Yes Status: Acute Plan to address problem: see below. no new issues at this time. See notes. (2) Colon cancer metastasized to multiple sites Current Visit: Yes Status: Ruled-out Plan to address problem: see notes. eventually will get chemo/xrt. once stable. (3) Lung mass Current Visit: Yes Status: Acute Plan to address problem: see notes. (4) Pulmonary embolism Current Visit: Yes Status: Acute Plan to address problem: anticoags. see notes. no more anti coags. (5) DVT (deep venous thrombosis) Current Visit: Yes Status: Acute Qualifiers: Laterality: left Plan to address problem: anti coags. no more. (6) Anemia Current Visit: Yes Status: Acute Qualifiers: Iron deficiency anemia type: chronic blood loss Plan to address problem: see notes. will transfuse. will repeat labs. stable (7) Skin macule or macular rash Current Visit: Yes Status: Acute Plan to address problem: Most likely due to contrast use during procedure. Tx is steroid. Subjective Date of service: 09/22/17 Principal diagnosis: GI bleeding, colon cancer Interval history: Patient seen/examined, record reviewed, case d/w his daughter at the bed side.No procedure was done today. I have d/w DR BOYD today, and he will see patient .He is confused today, with some lethargy. Patient seen/examined, resting in bed, labs reviewed, notes reviewed. DR BOYD not available yet, so i am seeing patient today.No new issues at this time Patient seen/resting in bed, still some what confused.Notes reviewed, Lung lesion now ? for mets.I have updated DR BOYD today Patient seen/examined, labs reviewed.H/H 6.6 , I have spoken to his nurse, and will draw from a non heparin line Stat. Patient seen, resting in bed, labs reviewed. I have d/w the nurse, and will order PRBC. Patient seen/examined, resting in bed, labs reviewed, case d/w patient and family at the bed side. He is s/p 2uPRBC transfusion.He is scheduled for IVC Filter placement, after which he can be transitioned to oral anticoagulation. eloquis. he should be able to transfer to chair, and back to bed once Heparin in therapeutic range. Patient seen/examined, labs reviewed, case d/w patient, and family.IVC filter not placed, so patient restarted on his Heparin.once placed, then patient can be ab;e to move around. Patient seen/examined, ,resting in bed, family at the bed side, IVC filter placement was not done. for some unknown reason..I have discussed with DR Mirza this morning that once Filter placed, he may be d/c home to start chemo. Patient seen/examined, case d/w patient / at the bed side.I will speak with IR about Filter placement, so patient can proceed with chemo. Patient seen/examined, resting in bed, record reviewed, No IVC filter yet. Patient seen/examined, case d/w him, and family. I had spoken to DR LOJA, and the conclusion was that patient will be switched to LMWH tx dose for probably indefinite, but if any surgical procedure is intended, or there is another thrombotic event, then he will get an IVC filter.I will d/w DR Mirza tomorrow, and if he can be d/c soon so he can get ready for chemo. Patient seen/examined, resting in bed, appears slightly lethargic, at the bed side, case d/w both, and with the primary team, Dr Lewis. Patient having GI bleed actively, heparin on hold now for 2days. patient also having projectile emesis bile like. I think that due to this new development, Patient can not be on anticoagulation,and he still remains pro thrombotic. This will make him a candidate for an alternative measure such as an IVC filter..Any major procedure such as GI scope can can even result in thrombotic event.He will need abdominal imaging also to r/o obstruction. Patient seen/examined, resting in bed, notes reviewed, patient asleep.I have reviewed notes , and glad that DR Longoria has concord with recommendation for IVC Filter.. patient seen/examined, notes reviewed. IVC filter placement completed, as per patient, who is more alert at this time. patient seen/examined , resting in bed, vss, afebrile, some what lethargic, family at the bed side.Skin of the extremity, with diffuse purpura., started post surgery.,almost like vasculitis.may need steroid trial., because this may infact be due to contrast ,which may also be delayed. Patient seen/examined, in the ICU center where he was transfered due to resp distress.I had suggested steroid, since this is looking more like contrast induced, , he now has acute renal failure in part due to same reason of contrast , and perhaps due to hypotension. I have discussed with DR Poe, and he will go ahead and order some steroid, and renal consult, and some insulin coverage. Objective - Constitutional Vitals: Vital Signs - 12hr 09/22/17 09/22/17 09/22/17 01:43 02:43 04:45 Temperature 98.8 F Pulse Rate Pulse Rate [ Anterior Bilateral Throughout] Respiratory 20 20 24 Rate Respiratory Rate [Anterior Bilateral Throughout] Blood Pressure 125/58 O2 Sat by Pulse Oximetry 09/22/17 09/22/17 09/22/17 04:50 05:20 05:30 Temperature Pulse Rate 51 L Pulse Rate [ 52 L 55 L Anterior Bilateral Throughout] Respiratory Rate Respiratory 20 20 Rate [Anterior Bilateral Throughout] Blood Pressure O2 Sat by Pulse 92 Oximetry 09/22/17 09/22/17 09/22/17 07:13 07:37 07:44 Temperature 98.6 F Pulse Rate 51 L Pulse Rate [ 60 62 Anterior Bilateral Throughout] Respiratory 18 Rate Respiratory 18 18 Rate [Anterior Bilateral Throughout] Blood Pressure 128/57 O2 Sat by Pulse 94 96 Oximetry 09/22/17 09/22/17 09/22/17 08:15 09:24 09:30 Temperature Pulse Rate 53 L 53 L Pulse Rate [ Anterior Bilateral Throughout] Respiratory 35 H 35 H 34 H Rate Respiratory Rate [Anterior Bilateral Throughout] Blood Pressure 94/48 O2 Sat by Pulse 100 100 100 Oximetry 09/22/17 09/22/17 09/22/17 09:40 09:50 10:00 Temperature Pulse Rate 52 L 49 L 51 L Pulse Rate [ Anterior Bilateral Throughout] Respiratory 29 H 13 15 Rate Respiratory Rate [Anterior Bilateral Throughout] Blood Pressure 96/51 104/52 89/44 O2 Sat by Pulse 92 100 100 Oximetry 09/22/17 09/22/17 09/22/17 10:10 10:20 10:30 Temperature Pulse Rate 53 L 52 L 52 L Pulse Rate [ Anterior Bilateral Throughout] Respiratory 19 18 20 Rate Respiratory Rate [Anterior Bilateral Throughout] Blood Pressure 101/65 76/38 77/42 O2 Sat by Pulse 99 100 100 Oximetry 09/22/17 09/22/17 09/22/17 10:40 10:50 11:00 Temperature Pulse Rate 70 70 68 Pulse Rate [ Anterior Bilateral Throughout] Respiratory 20 22 20 Rate Respiratory Rate [Anterior Bilateral Throughout] Blood Pressure 85/46 109/48 109/48 O2 Sat by Pulse 97 93 Oximetry 09/22/17 09/22/17 09/22/17 11:10 11:18 11:20 Temperature 98.5 F Pulse Rate 68 67 Pulse Rate [ Anterior Bilateral Throughout] Respiratory 21 22 Rate Respiratory Rate [Anterior Bilateral Throughout] Blood Pressure 107/47 114/47 O2 Sat by Pulse 95 96 Oximetry 09/22/17 09/22/17 09/22/17 11:30 11:41 11:51 Temperature Pulse Rate 68 67 67 Pulse Rate [ Anterior Bilateral Throughout] Respiratory 26 H 22 21 Rate Respiratory Rate [Anterior Bilateral Throughout] Blood Pressure 114/47 84/45 118/53 O2 Sat by Pulse 97 95 Oximetry 09/22/17 09/22/17 09/22/17 12:00 12:11 12:21 Temperature Pulse Rate 66 65 65 Pulse Rate [ Anterior Bilateral Throughout] Respiratory 27 H 20 28 H Rate Respiratory Rate [Anterior Bilateral Throughout] Blood Pressure 115/50 115/50 117/55 O2 Sat by Pulse 94 95 96 Oximetry 09/22/17 09/22/17 09/22/17 12:30 12:41 12:51 Temperature Pulse Rate 65 66 66 Pulse Rate [ Anterior Bilateral Throughout] Respiratory 24 27 H 30 H Rate Respiratory Rate [Anterior Bilateral Throughout] Blood Pressure 120/56 120/56 129/58 O2 Sat by Pulse 95 94 92 Oximetry General appearance: Present: severe distress - EENT Eyes: PERRL, EOM intact ENT: hearing intact, clear oral mucosa Ears: bilateral: normal - Neck Neck: supple, normal ROM - Respiratory Respiratory: bilateral: other (on the vent on a temporal base) - Cardiovascular Rhythm: regular Heart Sounds: Present: S1 & S2. Absent: gallop, rub Extremities: pulses intact, No edema, normal color, Full ROM - Gastrointestinal General gastrointestinal: Present: soft, non-tender, non-distended, normal bowel sounds Rectal Exam: deferred - Genitourinary Male genitourinary: deferred - Integumentary Integumentary: warm, dry, rash - Labs CBC & Chem 7: 09/22/17 07:10 09/22/17 07:10 Labs: Abnormal lab results 09/21/17 09/21/17 09/22/17 Range/Units 16:25 22:57 04:30 RBC (3.65-5.03) M/mm3 Hgb (11.8-15.2) gm/dl Hct (35.5-45.6) % MCV (84-94) fl MCH (28-32) pg RDW (13.2-15.2) % Seg Neutrophils % (40.0-70.0) % Sodium (137-145) mmol/L Carbon Dioxide (22-30) mmol/L BUN (9-20) mg/dL Creatinine (0.8-1.5) mg/dL Glucose (75-100) mg/dL POC Glucose 284 H 247 H (70-105) Phosphorus (2.5-4.5) mg/dL Magnesium (1.7-2.3) mg/dL ALT 96 H (7-56) units/L Albumin 2.6 L (3.9-5) g/dL 09/22/17 09/22/17 09/22/17 Range/Units 04:30 04:31 07:10 RBC 2.93 L (3.65-5.03) M/mm3 Hgb 9.6 L (11.8-15.2) gm/dl Hct 28.1 L (35.5-45.6) % MCV 96 H (84-94) fl MCH 33 H (28-32) pg RDW 20.5 H (13.2-15.2) % Seg Neutrophils % 79.5 H (40.0-70.0) % Sodium 136 L (137-145) mmol/L Carbon Dioxide 18 L (22-30) mmol/L BUN 87 H (9-20) mg/dL Creatinine 2.3 H (0.8-1.5) mg/dL Glucose 331 H (75-100) mg/dL POC Glucose 309 H (70-105) Phosphorus 5.20 H (2.5-4.5) mg/dL Magnesium 2.60 H (1.7-2.3) mg/dL ALT (7-56) units/L Albumin (3.9-5) g/dL 09/22/17 09/22/1717 Range/Units 07:21 08:43 11:28 RBC (3.65-5.03) M/mm3 Hgb (11.8-15.2) gm/dl Hct (35.5-45.6) % MCV (84-94) fl MCH (28-32) pg RDW (13.2-15.2) % Seg Neutrophils % (40.0-70.0) % Sodium (137-145) mmol/L Carbon Dioxide (22-30) mmol/L BUN (9-20) mg/dL Creatinine (0.8-1.5) mg/dL Glucose (75-100) mg/dL POC Glucose 325 H 341 H 384 H (70-105) Phosphorus (2.5-4.5) mg/dL Magnesium (1.7-2.3) mg/dL ALT (7-56) units/L Albumin (3.9-5) g/dL
[2017-09-22] MEDS: fentaNYL DRIP Premix 2,000 MCG/100 ML BAG IV SCH ×3 (13:13→22:12)
[2017-09-22 13:32] LABS: ISTAT Base Excess -10; ISTAT HCO3 17.4; ISTAT PCO2 39.2 (35-45); ISTAT PH 7.256 (7.35-7.45); ISTAT PO2 70 (80-105); ISTAT SO2 91; ISTAT TCO2 19
[2017-09-22] MEDS: SODIUM BICARBONATE 150 MEQ in STERILE WATER 1,000 ML IV SCH (14:51)
[2017-09-22] MEDS: LEVEMIR SUB-Q SCH (14:51)
--- NOTE | 2017-09-22 18:55 | Cat Scan Report ---
FINAL REPORT PROCEDURE: CT HEAD/BRAIN WO CON TECHNIQUE: Computerized tomography of the head was performed without contrast material. HISTORY: Altered Mental Status; ? Metastatic Cancer COMPARISON: No prior studies are available for comparison. FINDINGS: Brain: There is no evidence of intracranial hemorrhage. No parenchymal hemorrhage is seen. No mass lesions or mass effect is identified. No abnormal extra-axial fluid collections or masses are seen. There is some decreased density seen in the periventricular white matter without mass effect. This is fairly symmetric and does not exhibit any mass effect consistent with gliosis probably on the basis of microvascular disease or white matter changes of aging. Ventricles: The ventricles, sulcal pattern and fissures are prominent consistent with atrophy. Bones: No evidence of acute fracture. Paranasal sinuses: Subcentimeter nodular densities seen posteriorly inferiorly in the left maxillary sinus suggesting a small polyp or mucous retention cyst. Paranasal sinuses otherwise appear clear. Mastoid air cells: clear NG tube is partially visualized. IMPRESSION: Limited exam. There was no IV contrast utilized. Today's study does show evidence of mild atrophy and gliosis. No acute abnormalities are suspected. To evaluate for metastatic disease I would recommend contrast-enhanced CT scan or contrast-enhanced MRI for further evaluation.
[2017-09-22] MEDS ORDERED: TPN ADULT 2,016 ML IV SCH (20:00)
[2017-09-22 21:58] LABS: Bacteria,Urine 1+ /HPF (Negative); Bilirubin,Urine NEG (Negative); Blood,Urine NEG (Negative); Ketones,Urine NEG (Negative); Leukocyte Esterase,Urine NEG (Negative); Mucus,Urine FEW /HPF; Nitrite,Urine NEG (Negative); Protein,Urine <15 mg/dL mg/dL (Negative); Urobilinogen,Urine < 2.0 mg/dL (<2.0)
[2017-09-23] MEDS: ATIVAN IV PRN ×3 (02:15→15:23)
[2017-09-23] MEDS: NOVOLOG SUB-Q SCH ×6 (02:26→22:44)
[2017-09-23] MEDS: SODIUM BICARBONATE 150 MEQ in STERILE WATER 1,000 ML IV SCH (04:10)
[2017-09-23 05:24] LABS: ISTAT Base Excess -7; ISTAT HCO3 19.2; ISTAT PCO2 36.1 (35-45); ISTAT PH 7.333 (7.35-7.45); ISTAT PO2 132 (80-105); ISTAT SO2 99; ISTAT TCO2 20
--- NOTE | 2017-09-23 05:42 | Consultation ---
CONSULTING PHYSICIAN: Dr. Mirza REASON FOR CONSULTATION: Acute hypoxemic respiratory failure, sepsis syndrome. CHIEF COMPLAINT AND HISTORY OF PRESENTING ILLNESS: The patient is a 66-year-old male with past medical history significant for a diagnosis of colon cancer about 11 years ago who was admitted initially to the hospital on or about 08/27/2017. He was found to have DVTs and pulmonary emboli. He was admitted to the hospital and he was started, I believe, on anticoagulation at that time, he had a complication with bleeding from the anticoagulation. Evaluation at that time also revealed a possible hilar mass/lymphadenopathy. Attempts to biopsy this lesion were complicated by its proximity to the aorta. Reportedly, he was transferred over to [facility], but they were unable to biopsy it after opening him up. He was sent back to this facility. An IVC filter was placed a couple of days ago according to the history and a few hours after they noticed a petechial rash on his upper and lower extremities and also involving the lower aspect of the torso. Nothing much was thought about it. Reportedly he had a good day yesterday. Earlier this morning, the patient began to complain of increasing shortness of breath. He was also noted to have acute altered mental status according to the notes. He was evaluated. He was found to also be hypotensive at that time. We are asked to assist with management. When I stopped by to see him, he was just waking up from the sedation received for intubation. I do not have any history of gross or streaky hemoptysis prior to this decompensation. Family denies nausea, vomiting, or overt aspiration and there was none reported in this hospitalization. That really is as much of the history of presentation as I have. PAST MEDICAL HISTORY: History of diabetes, history of hypertension, history of colon cancer in the past, possibly recurrent. PAST SURGICAL HISTORY: He has had bowel surgery, I believe, colon resection surgery in the past. MEDICATIONS: He was on at the time I stopped by to see him were reviewed. Pertinent medications included the following: Albuterol and Atrovent treatments have been started today, t.i.d. scheduled. He had been on TPN at 84 mL an hour. He is on Pulmicort 0.5 mg nebulized q.12 hours. Dopamine was going at 15 mcg per kilogram per minute. I have just ordered a fentanyl drip to begin at 1 mcg/kg per hour, insulin by sliding scale with Accu-Cheks q.6 hours, Zofran 4 mg IV q.8 hours. ALLERGIES: No known drug allergies. DIET: Well-built gentleman, acute weight loss or gain history is unknown. FAMILY AND SOCIAL HISTORY: Apparently lives in the community. 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 Family had denied alcohol, tobacco, or illicit drug use or abuse. Family history is otherwise unknown or noncontributory. REVIEW OF SYSTEMS: Unobtainable secondary to patient's medical and mental condition, otherwise is as in the body of history above or noncontributory. Pertinent positives might be the absence of seizures, the absence of focal weakness prior to this presentation. PHYSICAL EXAMINATION: VITAL SIGNS: Most recent temperature was 98.5 axillary at 11:18 a.m. this morning, pulse of 67, respiratory rate of 22, blood pressure now up to 114/47, however, that was on dopamine. GENERAL: Again well-built male, normocephalic, atraumatic, intubated. Endotracheal tube in the lips taped around 25 cm, beginning to wake up in mild respiratory distress. HEAD, EYES, EARS, NOSE, AND THROAT: He was anicteric. No conjunctival erythema. No gross jugular venous distention. No goiter. He appears to have a scar in the area of a possible tracheostomy in the past, but the family denies. Grossly, no palpable lymph nodes in the supraclavicular, submandibular, axillary lymph node chains. LUNGS: Auscultation of both lung olivas reveal bilateral rales, no wheezing. HEART: Heart sounds 1 and 2 are heard at the time of my evaluation, regular rate and rhythm. No rubs, no murmurs. ABDOMEN: Soft. Bowel sounds are positive. Do not appear tender. No palpable hepatosplenomegaly. He has midline scars from prior surgery in the abdomen. EXTREMITIES: Without overt digital clubbing, cyanosis. No pedal edema. Bilaterally dorsalis pedis pulses are palpable. NEUROLOGIC: He had spontaneous movements to all 4 extremities prior to sedation according to the reports. Pupils are equal, round, about 2 mm, sluggishly reactive to light. Extraocular muscle movements are intact. SKIN: The skin is of normal turgor. He has the petechial lesion involving the upper and lower extremities and around the lower trunk. No cellulitis, no rash otherwise. LABORATORY DATA: From my review are as follows. Labs today, white cell count 9100, hemoglobin 9.6, hematocrit 28.1, and platelet count 212. No band forms. Serum sodium 136, potassium 4.2, chloride 101, bicarb 18, BUN 87, creatinine 2.3, glucose was 325, magnesium 2.6, phosphorus 5.2. ALT 96. Albumin low at 2.6. Otherwise, liver function tests essentially within normal limits. Urine drug screen at presentation, Tylenol and alcohol levels were all within expected limits. Aspirin level also within expected limits. Vancomycin trough was elevated, that was around 09/01/2017. Urine culture, urinalysis done at presentation 08/27/2017 was unremarkable. Arterial blood gas is pending and will be followed. Arterial blood gas done 09/07/2017 showed a pH of 7.39, pCO2 of 42, pO2 of 68 that was on 2 liters nasal cannula. His presentation on labs, white count was 14.6 at presentation, hemoglobin was 8.4, BUN was 21 with a creatinine of 1.0 at presentation. ALT was 62 at presentation. His chemistries as of 09/20/2017 as on the day of contrast admission, his BUN was 50, creatinine was 1.1. Radiographic studies have been reviewed. During this admission, he has had a CT of the abdomen and pelvis that essentially suggested early bowel obstruction, rule out malignancy in the left lower pole of the kidney. Possible perforation. A repeat abdomen and pelvis CT done 08/30/2017 was also reviewed, aortic aneurysm without dissection, suspicious for nonocclusive thrombus in the left superficial femoral vein. No suspicious liver lesions. A chest CTA was done 09/01/2017. I have actually reviewed the images on that CTA of the chest, pretty poor contrast phase timing, but definitely pulmonary emboli in the right lower lobe trunk of the pulmonary artery is evident. The report also reports a 2.5 cm right hilar mass, which I do note. Unclear if it is adenopathy. No other mediastinal adenopathy. Lung windows show patchy consolidation involving particular the right lower lobe and a small pleural effusion on that side. I do not see any neuro imaging. Chest x-ray today, most recent shows an endotracheal tube in place in good position, the tip at the lower level of the clavicular heads. He has a right PICC line in place, tip in the distal SVC. Still some patchy infiltrates in particular the right lower lobe region, but bilaterally. No gross pneumothorax, no gross bony fracture. ASSESSMENT: 1. Acute hypoxemic respiratory failure, on mechanical ventilatory support. 2. Sepsis syndrome with hypotension, etiology unclear. 3. Petechial lesions status post contrast administration, which in my opinion is probably responsible for the petechia that were seen. Certainly, it could also be related to infection, which may also be causing the sepsis. Cholesterol plaque is highly unlikely this being a venous procedure. 4. Altered mental status. 5. Possible metastatic malignancy, primary or recurrent colon cancer. Unfortunately, they were unable to biopsy the hilar lesion secondary to the proximity to the aorta. 6. Oropharyngeal dysphagia. 7. Anemia. 8. Venous thromboembolic phenomenon with acute pulmonary emboli. 9. Acute kidney injury, which is consistent also with administration of contrast. 10. Diabetes with uncontrolled hyperglycemia at this point. PLAN: Continue full mechanical ventilator support in the short term. We will follow up on the ABG results. Bronchodilators will be continued. Ventilator-associated pneumonia bundle will be addressed daily, daily SVTs and daily SCDs. Head of bed greater than or equal to about 40 degrees. Oxygen will be weaned to keep sats greater than or equal to about 90-92% acutely. We will send cultures including one from the central line. I will get ID involved, I am not so sure that he does actually need antibiotic coverage at this point. I do note he was on vancomycin in the past, but I doubt it is responsible for his acute kidney injury considering the timing. He will be pancultured also and then will be followed clinically. Lactic acid level will be ordered. With regards to the possible contrast-induced nephropathy, really contrast-induced petechia, I will go ahead and start systemic steroids, one for stress dosing for possible sepsis, a random cortisol level has been sent in the meantime and then 2 for possible contrast-induced reaction or allergy, we will continue the systemic steroids. The CRP level will be trended as necessary during the admission for better interpretation of any leukocytosis. Hematology/Oncology is on the case, I would defer to them in terms of malignancy, we will continue to hold on anticoagulation in light of the GI bleeding. I believe GI is on the case. We will defer to them for management. He was on GI prophylaxis, he was actually on a drip and he is now on b.i.d. Protonix. I will defer again to GI team. Nephrology consult will be placed. I will get a CT scan of his head to rule out any intracranial lesion as the cause of his decompensation from mental status standpoint. Flu and pneumonia vaccination will be addressed per protocol. Thank you very much for the consult Dr. ____ complex case. Hopefully, we can tie everything together and produce some improvement in quality of life and hopefully get him over the hump. The hilar adenopathy that was not biopsied, I doubt, is necessary for the acute decompensation, but we will wait to see what the CT of the brain shows. At this point, spent about 40-45 minutes of critical care time. I will be going ahead to discuss with the family and intimate them of the care plan. JOB# [id number] FELIPE/JAMES
[2017-09-23 05:51] LABS: Calcium 9.1 mg/dL (8.4-10.2); Chloride 98.8 mmol/L (98-107); Magnesium 2.6 mg/dL (1.7-2.3); Phosphorous 5.4 mg/dL (2.5-4.5); Potassium 4.4 mmol/L (3.6-5.0)
[2017-09-23] MEDS: fentaNYL DRIP Premix 2,000 MCG/100 ML BAG IV SCH ×2 (06:12→19:16)
[2017-09-23] MEDS: PULMICORT IH SCH ×2 (09:05→19:56)
[2017-09-23] MEDS: DUONEB *Not for PRN Use IH SCH ×3 (09:05→19:56)
--- NOTE | 2017-09-23 09:05 | Progress Note ---
Assessment and Plan - Patient Problems (1) Colon cancer metastasized to multiple sites Current Visit: Yes Status: Ruled-out Plan to address problem: No definite evidence of multiple metastasis to lung or liver at this point. Repeat CT of the chest was reviewed extensively with Dr. Bradford and he is not convinced at this time that the lesion in the lung is a metastatic lesion. 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 (2) Altered mental status Current Visit: Yes Status: Resolved Qualifiers: Altered mental status type: transient alteration of awareness Qualified Code(s): R40.4 - Transient alteration of awareness Plan to address problem: Patient now lethargic and poorly responsive with change in mental status and respiration. We'll transfer patient to the intensive care unit and may require intubation and ventilator supports discussed with patient's family and with the patient will increase to to proceed with plan for respiratory support keep on BiPAP for now obtain ABG pulmonary consults (3) Fever Current Visit: Yes Status: Resolved Qualifiers: Fever type: unspecified Qualified Code(s): R50.9 - Fever, unspecified Plan to address problem: Fever has now resolved afebrile the past few days (4) Hypertension Current Visit: Yes Status: Acute Qualifiers: Hypertension type: essential hypertension Qualified Code(s): I10 - Essential (primary) hypertension Plan to address problem: Blood pressures is marginal with hold all blood pressure medication at this point (5) Type 2 diabetes mellitus without complications Current Visit: Yes Status: Acute Plan to address problem: Patient reported with hyperglycemia will adjust current coverage with long- acting insulin and sliding scale coverage (6) Deep vein blood clot of left lower extremity Current Visit: Yes Status: Acute Plan to address problem: Patient now status post placement of IVC filter due to new onset of lower GI bleed ,anticoagulation now on hold (7) Anemia Current Visit: Yes Status: Acute Qualifiers: Iron deficiency anemia type: chronic blood loss Plan to address problem: Hemoglobin noted is fairly stable posttransfusion with 2 units of Cells continue to monitor hemoglobin (8) Abdominal pain Current Visit: Yes Status: Acute Qualifiers: Abdominal location: upper abdomen, unspecified Qualified Code(s): R10.10 - Upper abdominal pain, unspecified Plan to address problem: Nausea vomiting subsided . We need to start on tube feeding after patient is intubated we'll continue with TPN at this point (9) Lower GI bleed Current Visit: Yes Status: Acute Plan to address problem: GI evaluation reviewed ,patient had bleeding scan which was negative and no further active lower GI bleeding reported stool reported to be brown but no active bleeding (10) Petechial rash Current Visit: Yes Status: Acute Plan to address problem: Possible localized reaction to local anaesthtic agent will observe closely and watch for any systemic component to this localized rash will also recheck platelet count as well as CBC (11) Abnormal liver function test Current Visit: Yes Status: Acute Plan to address problem: Abnormal liver function tests observed . Slight improvement noted since yesterday in transaminases level will continue to monitor. (12) Respiratory failure requiring intubation Current Visit: Yes Status: Acute Plan to address problem: Respiratory failure with hypoxia patient now on full ventilator support due to worsening respiratory status and hypoxia . Discussed with patient's and his three brothers by conference call on the telephone ,explained new changes in condition and plan of care full support (13) Acute kidney injury Current Visit: Yes Status: Acute Subjective Date of service: 09/23/17 Principal diagnosis: GI bleeding, colon cancer Interval history: Patient seen and examined ,chart reviewed . Patient on the ventilator orally intubated Objective - Exam Narrative Exam: GENERAL: On ventilator orally intubated sedated HEENT: Mucous membrane is moist, pharynx is clear. NECK: [No JVD, no thyroid enlargement and no lymphadenopathy.] CHEST/LUNGS: Reduced air exchange bibasally, a few rhonchi no wheezes no rales [No chest wall tenderness, percussion is normal, symmetrical chest wall.] HEART/CARDIOVASCULAR: Tachycardia. Second heart sounds only there is no audible murmur.] ABDOMEN: [Abdomen is soft, nondistended, multiple healed laparotomy scars no guarding, no rebound tenderness, , active bowel sounds.] SKIN: Petechia erythematous rash in the antecubital fossa extending to the upper arm, petechia also now extending into the thigh bilaterally NEURO: Lethargic responds only to name call and a few questions. EXTREMITIES: Pedal edema left lower extremity up to below the knee, no edema on the right, good peripheral pulses bilaterally no finger or toe clubbing. - Constitutional Vitals: Vital Signs - 12hr 09/22/17 09/22/17 09/22/17 21:11 21:21 21:30 Temperature Pulse Rate 62 63 62 Respiratory 25 H 25 H 25 H Rate Blood Pressure 112/57 116/57 114/56 O2 Sat by Pulse 100 100 99 Oximetry 09/22/17 09/22/17 09/22/17 21:41 21:51 22:00 Temperature Pulse Rate 63 62 62 Respiratory 25 H 25 H 25 H Rate Blood Pressure 114/56 114/56 120/57 O2 Sat by Pulse 100 100 100 Oximetry 09/22/17 09/22/17 09/22/17 22:11 22:21 22:30 Temperature Pulse Rate 62 61 62 Respiratory 25 H 25 H 25 H Rate Blood Pressure 120/57 120/59 121/59 O2 Sat by Pulse 100 100 100 Oximetry 09/22/17 09/22/17 09/22/17 22:41 22:42 22:51 Temperature Pulse Rate 75 75 68 Respiratory 25 H 25 H 25 H Rate Blood Pressure 121/59 121/59 121/59 O2 Sat by Pulse 98 99 99 Oximetry 09/22/17 09/22/17 09/22/17 22:55 23:01 23:11 Temperature Pulse Rate 67 66 64 Respiratory 25 H 25 H 25 H Rate Blood Pressure 121/59 96/47 96/47 O2 Sat by Pulse 98 96 99 Oximetry 09/22/17 09/22/17 09/22/17 23:21 23:31 23:41 Temperature Pulse Rate 63 86 72 Respiratory 25 H 14 25 H Rate Blood Pressure 96/47 161/68 161/68 O2 Sat by Pulse 99 88 98 Oximetry 09/22/17 09/22/17 09/23/17 23:45 23:51 00:00 Temperature 98.3 F Pulse Rate 63 67 64 Respiratory 25 H 25 H Rate Blood Pressure 101/51 97/48 99/48 O2 Sat by Pulse 99 98 96 Oximetry 09/23/17 09/23/17 09/23/17 00:11 00:21 00:30 Temperature Pulse Rate 63 63 63 Respiratory 25 H 25 H 25 H Rate Blood Pressure 99/48 97/48 114/55 O2 Sat by Pulse 99 100 98 Oximetry 09/23/17 09/23/17 09/23/17 00:41 00:51 01:00 Temperature Pulse Rate 61 61 60 Respiratory 25 H 25 H 25 H Rate Blood Pressure 114/55 126/58 118/55 O2 Sat by Pulse 100 100 99 Oximetry 09/23/17 09/23/17 09/23/17 01:11 01:21 01:30 Temperature Pulse Rate 60 60 59 L Respiratory 25 H 25 H 25 H Rate Blood Pressure 118/55 127/58 131/59 O2 Sat by Pulse 100 100 99 Oximetry 09/23/17 09/23/17 09/23/17 01:41 01:51 02:00 Temperature Pulse Rate 65 61 60 Respiratory 24 25 H 25 H Rate Blood Pressure 131/59 128/57 129/59 O2 Sat by Pulse 97 100 99 Oximetry 09/23/17 09/23/17 09/23/17 02:11 02:22 02:30 Temperature Pulse Rate 65 61 Respiratory 25 H 25 H Rate Blood Pressure 129/59 137/58 126/58 O2 Sat by Pulse 98 100 98 Oximetry 09/23/17 09/23/17 09/23/17 02:41 02:51 03:00 Temperature Pulse Rate 60 59 L 58 L Respiratory 25 H 25 H 25 H Rate Blood Pressure 137/58 134/64 130/59 O2 Sat by Pulse 100 100 100 Oximetry 09/23/17 09/23/17 09/23/17 03:11 03:21 03:30 Temperature Pulse Rate 58 L 57 L 56 L Respiratory 25 H 25 H 25 H Rate Blood Pressure 130/59 145/63 147/65 O2 Sat by Pulse 100 100 100 Oximetry 09/23/17 09/23/17 09/23/17 03:41 03:51 04:00 Temperature 98.3 F Pulse Rate 55 L 56 L 56 L Respiratory 25 H 25 H 25 H Rate Blood Pressure 147/65 141/64 148/66 O2 Sat by Pulse 100 100 99 Oximetry 09/23/17 09/23/17 09/23/17 04:11 04:21 04:31 Temperature Pulse Rate 57 L 54 L 56 L Respiratory 25 H 25 H 25 H Rate Blood Pressure 148/66 150/67 112/53 O2 Sat by Pulse 100 100 99 Oximetry 09/23/17 09/23/17 09/23/17 04:41 04:51 04:58 Temperature Pulse Rate 52 L 64 59 L Respiratory 25 H 25 H Rate Blood Pressure 112/53 150/67 105/63 O2 Sat by Pulse 100 100 100 Oximetry 09/23/17 09/23/17 09/23/17 05:01 05:11 05:20 Temperature Pulse Rate 57 L 56 L 55 L Respiratory 25 H 25 H 25 H Rate Blood Pressure 115/70 115/70 135/69 O2 Sat by Pulse 99 100 100 Oximetry 09/23/17 09/23/17 09/23/17 05:30 05:41 05:49 Temperature 98.3 F Pulse Rate 55 L 55 L Respiratory 25 H 25 H Rate Blood Pressure 111/69 111/69 O2 Sat by Pulse 99 100 Oximetry 09/23/17 09/23/17 09/23/17 05:51 06:00 06:11 Temperature Pulse Rate 57 L 55 L 59 L Respiratory 25 H 25 H 25 H Rate Blood Pressure 135/69 118/61 118/61 O2 Sat by Pulse 100 99 100 Oximetry 09/23/17 09/23/17 09/23/17 06:21 06:30 06:41 Temperature Pulse Rate 53 L 54 L 54 L Respiratory 25 H 25 H 25 H Rate Blood Pressure 164/72 158/69 158/69 O2 Sat by Pulse 100 99 100 Oximetry 09/23/17 09/23/17 09/23/17 06:51 07:00 07:10 Temperature Pulse Rate 67 71 64 Respiratory 16 25 H 25 H Rate Blood Pressure 164/72 138/55 158/70 O2 Sat by Pulse 97 98 99 Oximetry 09/23/17 09/23/17 09/23/17 07:21 07:30 07:40 Temperature Pulse Rate 59 L 57 L 56 L Respiratory 25 H 25 H 19 Rate Blood Pressure 158/70 136/61 136/61 O2 Sat by Pulse 99 97 100 Oximetry 09/23/17 09/23/17 09/23/17 07:51 08:00 08:11 Temperature Pulse Rate 55 L 55 L 60 Respiratory 25 H 19 25 H Rate Blood Pressure 136/61 153/68 153/68 O2 Sat by Pulse 100 98 99 Oximetry - Labs CBC & Chem 7: 09/22/17 07:10 09/23/17 04:55 Labs: Abnormal lab results 09/22/17 09/22/17 09/22/17 Range/Units 11:28 11:47 13:25 POC ABG pH 7.256 L (7.35-7.45) POC ABG pO2 70 L (80-105) Sodium (137-145) mmol/L Carbon Dioxide (22-30) mmol/L BUN (9-20) mg/dL Creatinine (0.8-1.5) mg/dL Glucose (75-100) mg/dL POC Glucose 384 H (70-105) Phosphorus (2.5-4.5) mg/dL Magnesium (1.7-2.3) mg/dL C-Reactive Protein 6.60 H (0.00-1.30) mg/dL 09/22/17 09/22/17 09/22/17 Range/Units 15:23 17:39 21:49 POC ABG pH (7.35-7.45) POC ABG pO2 (80-105) Sodium (137-145) mmol/L Carbon Dioxide (22-30) mmol/L BUN (9-20) mg/dL Creatinine (0.8-1.5) mg/dL Glucose (75-100) mg/dL POC Glucose 364 H 332 H 290 H (70-105) Phosphorus (2.5-4.5) mg/dL Magnesium (1.7-2.3) mg/dL C-Reactive Protein (0.00-1.30) mg/dL 09/23/17 09/23/17 09/23/17 Range/Units 01:45 04:55 05:11 POC ABG pH 7.333 L (7.35-7.45) POC ABG pO2 132 H (80-105) Sodium 134 L (137-145) mmol/L Carbon Dioxide 18 L (22-30) mmol/L BUN 103 H (9-20) mg/dL Creatinine 2.6 H (0.8-1.5) mg/dL Glucose 326 H (75-100) mg/dL POC Glucose 346 H (70-105) Phosphorus 5.40 H (2.5-4.5) mg/dL Magnesium 2.60 H (1.7-2.3) mg/dL C-Reactive Protein (0.00-1.30) mg/dL 09/23/17 Range/Units 05:46 POC ABG pH (7.35-7.45) POC ABG pO2 (80-105) Sodium (137-145) mmol/L Carbon Dioxide (22-30) mmol/L BUN (9-20) mg/dL Creatinine (0.8-1.5) mg/dL Glucose (75-100) mg/dL POC Glucose 307 H (70-105) Phosphorus (2.5-4.5) mg/dL Magnesium (1.7-2.3) mg/dL C-Reactive Protein (0.00-1.30) mg/dL
[2017-09-23] MEDS: LEVEMIR SUB-Q SCH ×2 (09:16→17:57)
[2017-09-23] MEDS: PROTONIX PO SCH ×2 (09:16→21:09)
--- NOTE | 2017-09-23 09:26 | Consultation ---
History of Present Illness - Reason for Consult Consult date: 09/23/17 acute renal failure Requesting physician: DIMPLE LYNN - History of Present Illness 66-year-old male with a history of colon cancer since 2005. Patient had colon resection then and subsequently developed some bowel obstruction and had small bowel bypass. He had done well since 2007 until earlier this year when he started having problems again. Patient has recurrence and has been deemed inoperable and has distant metastases. Presented to the hospital on account of fever with altered mental status. Creatinine was 1.1 on admission. Patient was started on intravenous fluids and had CT of the chest on September 01 and again on about and he has a multi multiple pulmonary pulmonary emboli in right lower lobe with right pleural effusion. He is getting total parenteral nutrition. BUN/creatinine had improved to 0.8 by September 15 but opn September 16 BUN/creatinine were up to 44/1.3 mg/dL. Patient had been having mild hypotension and on September 21 blood pressure dropped to as low as 90s/50s. BUN/ creatinine at this point also increased to 71/1.8 mg/dL and today is 103/ 2.6 mg/dl. Patient was transferred to intensive care unit yesterday because of increasing lethargy and respiratory distress and is currently intubated on ventilator. He is unable to give history and so history is obtained from the . Past History Past Medical History: cancer (inoperable colon cancer with distant metastases), diabetes, GERD, hypertension, other (colon cancer, deep Vein thrombosis). denies: No medical history Past Surgical History: bowel surgery (Colostomy reversal, resection, small bowel bypass, colostomy reversal, fistula repair) Social history: smoking, alcohol abuse, prescription drug abuse Family history: cancer (Sister of pelvic cancer possibly uterine), diabetes , hypertension, other (Mother of "old age" in her 80s. Father of pulmonary embolism) Medications and Allergies Allergies Allergy/AdvReac Type Severity Reaction Status Date / Time No Known Allergies Allergy Verified 01/01/15 13:25 Home Medications Medication Instructions Recorded Confirmed Last Taken Type Amlodipine Besylate/Benazepril 1 tab PO DAILY 01/01/15 08/27/17 08/26/17 History [amLODIPine-Benazepril 10/20 mg] Atenolol [Atenolol] 100 mg PO BID 01/01/15 08/27/17 08/26/17 History Insulin Glargine,Hum.rec.anlog 20 units SUB-Q HS 01/01/15 08/27/17 08/26/17 History [Lantus Solostar] Omeprazole [Omeprazole] 20 mg PO DAILY 01/01/15 08/27/17 08/26/17 History glyBURIDE/METFORMIN HCL 10 tab PO DAILY 01/01/15 08/27/17 08/26/17 History [Glyburide-Metformin 5-500 mg] Doxazosin [Cardura] 2 mg PO BID 08/27/17 08/27/17 08/26/17 History Insulin Glargine [Lantus] 20 unit SUB-Q QHS 08/27/17 08/27/17 08/26/17 History Simethicone [Gas Relief] 80 mg PO ACHS 08/27/17 08/27/17 08/26/17 History Warfarin [Coumadin] 7.5 mg PO QDAY 08/27/17 08/27/17 08/25/17 History metFORMIN [Glucophage] 500 mg PO BID 08/27/17 08/27/17 08/26/17 History oxyCODONE [Roxicodone] 5 mg PO Q4HR PRN 08/27/17 08/27/17 08/26/17 History Active Meds: Active Medications Albuterol (Proventil) 2.5 mg IH Q4HRT PRN PRN Reason: Shortness Of Breath Last Admin: 09/22/17 05:42 Dose: 2.5 mg Albuterol/Ipratropium (Duoneb *Not For Prn Use*) 1 ampul IH TIDRT PENDING SALE TO [facility] Last Admin: 09/23/17 09:05 Dose: 1 ampul Budesonide (Pulmicort) 0.5 mg IH Q12HRT PENDING SALE TO [facility] Last Admin: 09/23/17 09:05 Dose: 0.5 mg Dextrose (D50w (25gm) Syringe) 50 ml IV PRN PRN PRN Reason: Hypoglycemia Hydrocortisone Sodium Succinate (Solu-Cortef) 100 mg IV Q8HR PENDING SALE TO [facility] Last Admin: 09/23/17 06:12 Dose: 100 mg Dopamine HCl/Dextrose (Intropin Drip 800 Mg/D5w 250 Ml) 800 mg in 250 mls @ 3.109 mls/hr IV TITR ALEC; 2 MCG/KG/MIN PRN Reason: Protocol Last Titration: 09/23/17 08:23 Dose: 3 mcg/kg/min, 4.661 mls/hr Fentanyl Citrate (Fentanyl Drip Premix) 2,000 mcg in 100 mls @ 4.145 mls/hr IV TITR ALEC; 1 MCG/KG/HR PRN Reason: Protocol Last Admin: 09/23/17 06:12 Dose: 5 mcg/kg/hr, 20.725 mls/hr Sodium Bicarbonate 150 meq/ (Sterile Water) 1,150 mls @ 75 mls/hr IV DIRECT ALEC Stop: 09/24/17 05:19 Last Admin: 09/23/17 04:10 Dose: 75 mls/hr Amino Acids/Electrolytes/Dextrose (Tpn Adult) 2,016 mls @ 84 mls/hr IV DAILY@ 2000 ALEC PRN Reason: Protocol Stop: 09/23/17 19:59 Last Admin: 09/22/17 20:15 Dose: 84 mls/hr Insulin Aspart (Novolog) 0 units SUB-Q Q4HR ALEC PRN Reason: Protocol Last Admin: 09/23/17 06:11 Dose: 4 units Insulin Detemir (Levemir) 20 units SUB-Q QHS ALEC Lorazepam (Ativan) 1 mg IV Q4H PRN PRN Reason: Seizures Last Admin: 09/23/17 08:21 Dose: 1 mg Ondansetron HCl (Zofran) 4 mg IV Q8H PRN PRN Reason: Nausea And Vomiting Last Admin: 09/19/17 21:50 Dose: 4 mg Pantoprazole Sodium (Protonix) 40 mg PO BID ALEC Last Admin: 09/23/17 09:16 Dose: 40 mg Review of Systems ROS unobtainable: due to mental status Exam - Vital Signs Vital signs: Vital Signs Pulse Ox 90 08/27/17 02:20 - Physical Exam Narrative exam: Elderly -Welsh male lying in bed intubated on ventilator at the bedside HEENT: NCAT, endotracheal tube intact Neck: Supple, no venous distention CVS: S1S2 RRR with no murmur, rub or gallop Chest: Few rhonchi bilaterally Abdomen: Protuberant, firm, tender+, organomegaly +, bowel sounds are present Extremities: 2+ edema left leg Skin: Erythematous macular rash on extremities and trunk Neuro: See dictated, intubated on ventilator Results - Lab Results 09/22/17 07:10 09/23/17 04:55 Most recent lab results Calcium 9.1 mg/dL (8.4-10.2) 09/23/17 04:55 Phosphorus 5.40 mg/dL (2.5-4.5) H 09/23/17 04:55 Magnesium 2.60 mg/dL (1.7-2.3) H 09/23/17 04:55 Assessment and Plan - Patient Problems (1) Acute kidney injury Current Visit: Yes Status: Acute Plan to address problem: Acute kidney injury acute tubular necrosis secondary to hypotension/contrast exposure. Other considerations include acute interstitial nephritis with the rash patient has developed. Patient is nonoliguric. Her snoring renal indices but electrolytes still fairly normal. We'll get kidney ultrasound. Check complement C3-C4 to 50. Check urine for Eosinophils. Check hepatitis serologies. Continue gentle volume patient. Continue intravenous steroids. Follow-up electrolytes and renal function. Discussed with the hopefully kidney functions starts improving over the next 24-48 hours. If not we need to have discussion about dialysis. (2) Hyponatremia Current Visit: Yes Status: Acute Plan to address problem: Increase sodium in TPN. Follow-up sodium (3) DVT (deep venous thrombosis) Current Visit: Yes Status: Acute Qualifiers: Laterality: left Plan to address problem: Continue anticoagulation. Hematology is on the case (4) Elevated liver enzymes Current Visit: Yes Status: Acute Plan to address problem: Liver function tests improving. Continue to monitor. (5) Petechial rash Current Visit: Yes Status: Acute (6) Pulmonary embolism Current Visit: Yes Status: Acute Plan to address problem: Continue anticoagulation per belt repairer (7) Type 2 diabetes mellitus without complications Current Visit: Yes Status: Acute Plan to address problem: blood sugar management by primary attending (8) Colon cancer metastasized to multiple sites Current Visit: Yes Status: Ruled-out Plan to address problem: Continue management by oncologist (9) Anemia Current Visit: Yes Status: Acute Qualifiers: Iron deficiency anemia type: chronic blood loss Plan to address problem: Follow-up hemoglobin
--- NOTE | 2017-09-23 11:47 | Vascular Lab Report ---
MISCELLANEOUS VESSEL IDENTIFICATION: COMMENTS ON THE SCAN: The right common femoral vein was identified and under real-time ultrasound guidance was cannulated. IMPRESSION: Successful ultrasound guided vein cannulation.
--- NOTE | 2017-09-23 13:38 | Ultrasound Report ---
FINAL REPORT EXAM: US RENAL BILAT HISTORY: Acute kidney injury TECHNIQUE: Ultrasound examination of the kidneys PRIORS: AP CT 08/30/2017 FINDINGS: Visualized right kidney: 11.3 x 5.3 x 4.3 cm. Visualized left kidney: 9.8 x 4.5 x 4.0 cm Right renal cortical thickness 15 mm and left renal cortical thickness 18 mm. Technologist reports study limited by patient body habitus and inability to move. Focal lesion: None Calculus: None Hydronephrosis: None Perinephric fluid: None Nonspecific slight prominence of the renal pyramids in the right kidney without evidence of renal calices or pelvic distention. Urinary bladder decompressed containing Aiken catheter. IMPRESSION: Nonspecific slight asymmetric prominence of the right renal pyramids without definite evidence of hydronephrosis
--- NOTE | 2017-09-23 15:22 | Progress Note ---
Assessment and Plan Acute Hypoxemic Respiratory Failure Acute VTE-PE and DVTs Sepsis Syndrome H/O Colon CA (? recurrent) Acute GI Bleed RACHEL Contrast nephropathy Anemia -SBT today and evaluate mental status and respiratory mechanics -VAP bundle addressed - continue to avoid benzodiazepines - wean oxygen for Sats > 92% - s/p IVC filter - continue bronchodilators and pulmonary hygeine per RT - continue empiric AB's - continue GI prophylaxis -not anticoagulated secondary to GIbleed. s/p IVC filter -With hypoxemia, clot burden and the fact he is not to be anticoagulated get vascular consult - steroid taper at this point (improving azotemia) - enteric nutrition as tolerated (order placed today) - continue aspiration precautions - continue other care per attending / other consultants ....re-evaluate in am & prn ...35' CCT Subjective Date of service: 09/23/17 Principal diagnosis: GI bleeding, colon cancer Interval history: Patient is seen today for: Sepsis Syndrome; Acute Hypoxemic Resp Failure; Acute Encephalopathy; ESRD 24hour events reviewed; nursing and respiratory care staff consulted; no adverse overnight events reported to me; resting in bed; agitated earlier and sedation increased; on full mechanical ventilatory support, sedated; No emesis or overt aspiration and no gross bleeding Seen and examined. Vitals, labs, medications, chart reviewed. Discussed in ICU interdisciplinary rounds Objective - Exam Narrative Exam: GENERAL: On ventilator orally intubated , sedated HEENT: Mucous membrane is moist, pharynx is clear. NECK: No JVD, no thyroid enlargement and no lymphadenopathy CHEST/LUNGS: Reduced air exchange bibasally, a few rhonchi no wheezes no rales [No chest wall tenderness, percussion is normal, symmetrical chest wall.] HEART/CARDIOVASCULAR: Tachycardia. Second heart sounds only there is no audible murmur ABDOMEN: Abdomen is soft, non distended, multiple healed laparotomy scars no guarding, no rebound tenderness, , active bowel sounds SKIN: Petechia erythematous rash in the antecubital fossa extending to the upper arm, petechia also now extending into the thigh bilaterally NEURO: Lethargic responds only to name call EXTREMITIES: Pedal edema left lower extremity up to below the knee, no edema on the right, good peripheral pulses bilaterally no finger or toe clubbing. Vital Signs - 12hr 09/23/17 09/23/17 09/23/17 03:30 03:41 03:51 Temperature 98.3 F Pulse Rate 56 L 55 L 56 L Respiratory 25 H 25 H 25 H Rate Blood Pressure 147/65 147/65 141/64 O2 Sat by Pulse 100 100 100 Oximetry 09/23/17 09/23/17 09/23/17 04:00 04:11 04:21 Temperature Pulse Rate 56 L 57 L 54 L Respiratory 25 H 25 H 25 H Rate Blood Pressure 148/66 148/66 150/67 O2 Sat by Pulse 99 100 100 Oximetry 09/23/17 09/23/17 09/23/17 04:31 04:41 04:51 Temperature Pulse Rate 56 L 52 L 64 Respiratory 25 H 25 H 25 H Rate Blood Pressure 112/53 112/53 150/67 O2 Sat by Pulse 99 100 100 Oximetry 09/23/17 09/23/17 09/23/17 04:58 05:01 05:11 Temperature Pulse Rate 59 L 57 L 56 L Respiratory 25 H 25 H Rate Blood Pressure 105/63 115/70 115/70 O2 Sat by Pulse 100 99 100 Oximetry 09/23/17 09/23/17 09/23/17 05:20 05:30 05:41 Temperature Pulse Rate 55 L 55 L 55 L Respiratory 25 H 25 H 25 H Rate Blood Pressure 135/69 111/69 111/69 O2 Sat by Pulse 100 99 100 Oximetry 09/23/17 09/23/17 09/23/17 05:49 05:51 06:00 Temperature 98.3 F Pulse Rate 57 L 55 L Respiratory 25 H 25 H Rate Blood Pressure 135/69 118/61 O2 Sat by Pulse 100 99 Oximetry 09/23/17 09/23/17 09/23/17 06:11 06:21 06:30 Temperature Pulse Rate 59 L 53 L 54 L Respiratory 25 H 25 H 25 H Rate Blood Pressure 118/61 164/72 158/69 O2 Sat by Pulse 100 100 99 Oximetry 09/23/17 09/23/17 09/23/17 06:41 06:51 07:00 Temperature Pulse Rate 54 L 67 71 Respiratory 25 H 16 25 H Rate Blood Pressure 158/69 164/72 138/55 O2 Sat by Pulse 100 97 98 Oximetry 09/23/17 09/23/17 09/23/17 07:10 07:21 07:30 Temperature Pulse Rate 64 59 L 57 L Respiratory 25 H 25 H 25 H Rate Blood Pressure 158/70 158/70 136/61 O2 Sat by Pulse 99 99 97 Oximetry 09/23/17 09/23/17 09/23/17 07:40 07:51 08:00 Temperature Pulse Rate 56 L 55 L 55 L Respiratory 19 25 H 19 Rate Blood Pressure 136/61 136/61 153/68 O2 Sat by Pulse 100 100 98 Oximetry 09/23/17 09/23/17 09/23/17 08:11 08:21 08:30 Temperature Pulse Rate 60 56 L 54 L Respiratory 25 H 25 H 25 H Rate Blood Pressure 153/68 153/68 135/64 O2 Sat by Pulse 99 100 97 Oximetry 09/23/17 09/23/17 09/23/17 08:41 08:51 09:00 Temperature 97.3 F L Pulse Rate 54 L 55 L 52 L Respiratory 25 H 25 H 25 H Rate Blood Pressure 135/64 135/64 150/69 O2 Sat by Pulse 99 100 100 Oximetry 09/23/17 09/23/17 09/23/17 09:11 09:21 09:30 Temperature Pulse Rate 51 L 53 L 59 L Respiratory 25 H 24 14 Rate Blood Pressure 150/69 146/68 146/68 O2 Sat by Pulse 100 100 100 Oximetry 09/23/17 09/23/17 09/23/17 09:41 09:51 10:00 Temperature Pulse Rate 57 L 56 L 62 Respiratory 25 H 12 25 H Rate Blood Pressure 153/60 135/63 147/62 O2 Sat by Pulse 100 99 100 Oximetry 09/23/17 09/23/17 09/23/17 10:11 10:20 10:30 Temperature Pulse Rate 56 L 67 58 L Respiratory 25 H 18 25 H Rate Blood Pressure 147/62 134/76 124/54 O2 Sat by Pulse 100 95 100 Oximetry 09/23/17 09/23/17 09/23/17 10:41 10:51 11:01 Temperature Pulse Rate 69 60 57 L Respiratory 20 25 H 24 Rate Blood Pressure 124/54 124/54 108/50 O2 Sat by Pulse 97 100 99 Oximetry 09/23/17 09/23/17 09/23/17 11:11 11:21 11:30 Temperature Pulse Rate 58 L 60 61 Respiratory 22 25 H 25 H Rate Blood Pressure 108/50 108/50 102/57 O2 Sat by Pulse 97 100 100 Oximetry 12/15/17 12/15/17 12/15/17 11:41 11:51 12:00 Temperature 97.4 F L Pulse Rate 59 L 58 L 58 L Respiratory 25 H 25 H 25 H Rate Blood Pressure 102/57 102/57 111/55 O2 Sat by Pulse 99 100 100 Oximetry 09/23/17 09/23/17 09/23/17 12:11 12:21 12:30 Temperature Pulse Rate 58 L 57 L 56 L Respiratory 25 H 25 H 25 H Rate Blood Pressure 111/55 111/55 91/47 O2 Sat by Pulse 100 100 100 Oximetry 09/23/17 09/23/17 09/23/17 12:41 12:51 13:00 Temperature Pulse Rate 56 L 57 L 57 L Respiratory 25 H 25 H 25 H Rate Blood Pressure 91/47 91/47 99/54 O2 Sat by Pulse 100 100 100 Oximetry 09/23/17 09/23/17 09/23/17 13:11 13:21 13:30 Temperature Pulse Rate 56 L 56 L 55 L Respiratory 25 H 25 H 25 H Rate Blood Pressure 99/54 99/54 96/46 O2 Sat by Pulse 100 100 100 Oximetry 09/23/17 09/23/17 09/23/17 13:41 13:45 13:51 Temperature Pulse Rate 56 L 58 L 61 Respiratory 25 H 26 H 13 Rate Blood Pressure 96/46 111/55 96/46 O2 Sat by Pulse 100 99 100 Oximetry 09/23/17 09/23/17 09/23/17 14:00 14:11 14:21 Temperature Pulse Rate 60 59 L 59 L Respiratory 13 11 L 13 Rate Blood Pressure 109/51 109/51 109/51 O2 Sat by Pulse 99 100 100 Oximetry 09/23/17 09/23/17 09/23/17 14:30 14:41 14:51 Temperature Pulse Rate 59 L 60 68 Respiratory 13 13 13 Rate Blood Pressure 115/56 115/56 115/56 O2 Sat by Pulse 99 100 98 Oximetry 09/23/17 15:00 Temperature Pulse Rate 64 Respiratory 14 Rate Blood Pressure 124/53 O2 Sat by Pulse 100 Oximetry Constitutional: no acute distress, other (very drowsy, lethargic, but easily arousable. Not coughing consistently) Eyes: non-icteric ENT: oropharynx moist Neck: supple Effort: normal Ascultation: Bilateral: diminished breath sounds Percussion: Bilateral: not dull Cardiovascular: regular rate and rhythm Extremities: anasarca CBC and BMP: 09/24/17 06:00 09/25/17 04:00 ABG, PT/INR, D-dimer: ABG POC ABG pH 7.333 (7.35-7.45) L 09/23/17 05:11 POC ABG pCO2 36.1 (35-45) 09/23/17 05:11 POC ABG pO2 132 (80-105) H 09/23/17 05:11 POC ABG HCO3 19.2 09/23/17 05:11 POC ABG Total CO2 20 09/23/17 05:11 POC ABG O2 Sat 99 09/23/17 05:11 PT/INR, D-dimer PT 21.8 Sec. (12.2-14.9) H 08/28/17 20:01 INR 1.80 (0.87-1.13) H 08/28/17 20:01 Abnormal lab findings: Abnormal Labs 08/27/17 08/27/17 08/27/17 03:02 03:02 03:02 WBC 14.6 H RBC 3.46 L Hgb 8.4 L Hct 26.5 L MCV 77 L MCH 24 L MCHC RDW 25.8 H [place] % (Auto) [place] # Baso # Seg Neutrophils % Monocytes % (Manual) 8.0 H Nucleated RBC % 3.0 H Seg Neutrophils # Monocytes # (Manual) 1.2 H PT INR APTT Heparin Anti-Xa Level POC ABG pH POC ABG pCO2 POC ABG pO2 Sodium 136 L Potassium Chloride 93.3 L Carbon Dioxide BUN 21 H Creatinine Glucose 104 H POC Glucose Calcium Phosphorus Magnesium AST ALT 62 H Alkaline Phosphatase 133 H C-Reactive Protein Total Protein 8.5 H Albumin 3.2 L Triglycerides Urine pH Vancomycin Trough Salicylates < 0.3 L Crossmatch 08/27/17 08/27/17 08/27/17 05:00 07:43 11:20 WBC RBC Hgb Hct MCV MCH MCHC RDW [place] % (Auto) [place] # Baso # Seg Neutrophils % Monocytes % (Manual) Nucleated RBC % Seg Neutrophils # Monocytes # (Manual) PT INR APTT Heparin Anti-Xa Level POC ABG pH POC ABG pCO2 POC ABG pO2 Sodium Potassium Chloride Carbon Dioxide BUN Creatinine Glucose POC Glucose 116 H 110 H Calcium Phosphorus Magnesium AST ALT Alkaline Phosphatase C-Reactive Protein Total Protein Albumin Triglycerides Urine pH 9.0 H Vancomycin Trough Salicylates Crossmatch 08/27/17 08/27/17 08/28/17 16:36 22:00 04:41 WBC RBC Hgb Hct MCV MCH MCHC RDW [place] % (Auto) [place] # Baso # Seg Neutrophils % Monocytes % (Manual) Nucleated RBC % Seg Neutrophils # Monocytes # (Manual) PT INR APTT Heparin Anti-Xa Level POC ABG pH POC ABG pCO2 POC ABG pO2 Sodium Potassium Chloride Carbon Dioxide BUN Creatinine Glucose 139 H POC Glucose 108 H 130 H Calcium 8.2 L Phosphorus Magnesium AST ALT Alkaline Phosphatase C-Reactive Protein Total Protein Albumin Triglycerides Urine pH Vancomycin Trough Salicylates Crossmatch 08/28/17 08/28/17 08/28/17 04:41 06:46 07:16 WBC RBC Hgb Hct MCV MCH MCHC RDW [place] % (Auto) [place] # Baso # Seg Neutrophils % Monocytes % (Manual) Nucleated RBC % Seg Neutrophils # Monocytes # (Manual) PT 25.2 H INR 2.17 H APTT Heparin Anti-Xa Level POC ABG pH POC ABG pCO2 POC ABG pO2 Sodium Potassium Chloride Carbon Dioxide BUN Creatinine Glucose POC Glucose 176 H 175 H Calcium Phosphorus Magnesium AST ALT Alkaline Phosphatase C-Reactive Protein Total Protein Albumin Triglycerides Urine pH Vancomycin Trough Salicylates Crossmatch 08/28/17 08/28/17 08/28/17 11:41 16:47 20:01 WBC RBC Hgb Hct MCV MCH MCHC RDW [place] % (Auto) [place] # Baso # Seg Neutrophils % Monocytes % (Manual) Nucleated RBC % Seg Neutrophils # Monocytes # (Manual) PT 21.8 H INR 1.80 H APTT 56.5 H Heparin Anti-Xa Level POC ABG pH POC ABG pCO2 POC ABG pO2 Sodium Potassium Chloride Carbon Dioxide BUN Creatinine Glucose POC Glucose 176 H 206 H Calcium Phosphorus Magnesium AST ALT Alkaline Phosphatase C-Reactive Protein Total Protein Albumin Triglycerides Urine pH Vancomycin Trough Salicylates Crossmatch 08/28/17 08/29/17 08/29/17 20:43 00:07 02:30 WBC RBC Hgb 6.4 L Hct 20.6 L MCV MCH MCHC RDW [place] % (Auto) [place] # Baso # Seg Neutrophils % Monocytes % (Manual) Nucleated RBC % Seg Neutrophils # Monocytes # (Manual) PT INR APTT Heparin Anti-Xa Level POC ABG pH POC ABG pCO2 POC ABG pO2 Sodium Potassium Chloride Carbon Dioxide BUN Creatinine Glucose POC Glucose 259 H Calcium Phosphorus Magnesium AST ALT Alkaline Phosphatase C-Reactive Protein Total Protein Albumin Triglycerides Urine pH Vancomycin Trough Salicylates Crossmatch See Detail 08/29/17 08/29/17 08/29/17 02:56 07:25 11:40 WBC RBC Hgb Hct MCV MCH MCHC RDW [place] % (Auto) [place] # Baso # Seg Neutrophils % Monocytes % (Manual) Nucleated RBC % Seg Neutrophils # Monocytes # (Manual) PT INR APTT Heparin Anti-Xa Level POC ABG pH POC ABG pCO2 POC ABG pO2 Sodium Potassium 3.5 L Chloride Carbon Dioxide 21 L BUN 21 H Creatinine Glucose 214 H POC Glucose 220 H 174 H Calcium 8.0 L Phosphorus Magnesium 1.60 L AST ALT Alkaline Phosphatase C-Reactive Protein Total Protein Albumin Triglycerides Urine pH Vancomycin Trough Salicylates Crossmatch 08/29/17 08/29/17 08/29/17 16:10 16:40 17:48 WBC RBC Hgb 8.5 L Hct 26.7 L D MCV MCH MCHC RDW [place] % (Auto) [place] # Baso # Seg Neutrophils % Monocytes % (Manual) Nucleated RBC % Seg Neutrophils # Monocytes # (Manual) PT INR APTT Heparin Anti-Xa Level POC ABG pH POC ABG pCO2 POC ABG pO2 Sodium Potassium Chloride Carbon Dioxide BUN Creatinine Glucose POC Glucose 178 H Calcium Phosphorus Magnesium AST ALT Alkaline Phosphatase C-Reactive Protein Total Protein 3.9 L D Albumin 1.5 L Triglycerides Urine pH Vancomycin Trough Salicylates Crossmatch 08/29/17 08/29/17 08/30/17 18:32 22:19 04:25 WBC RBC Hgb 7.9 L Hct 25.2 L MCV MCH MCHC RDW [place] % (Auto) [place] # Baso # Seg Neutrophils % Monocytes % (Manual) Nucleated RBC % Seg Neutrophils # Monocytes # (Manual) PT INR APTT Heparin Anti-Xa Level POC ABG pH POC ABG pCO2 POC ABG pO2 Sodium Potassium Chloride Carbon Dioxide BUN Creatinine Glucose POC Glucose 247 H Calcium Phosphorus Magnesium AST ALT Alkaline Phosphatase C-Reactive Protein Total Protein Albumin Triglycerides Urine pH Vancomycin Trough 25.5 H Salicylates Crossmatch 08/30/17 08/30/17 08/30/17 04:25 07:53 11:53 WBC RBC Hgb Hct MCV MCH MCHC RDW [place] % (Auto) [place] # Baso # Seg Neutrophils % Monocytes % (Manual) Nucleated RBC % Seg Neutrophils # Monocytes # (Manual) PT INR APTT Heparin Anti-Xa Level POC ABG pH POC ABG pCO2 POC ABG pO2 Sodium 136 L Potassium 3.2 L Chloride Carbon Dioxide 18 L BUN 29 H Creatinine Glucose 203 H POC Glucose 193 H 246 H Calcium Phosphorus Magnesium AST ALT Alkaline Phosphatase C-Reactive Protein Total Protein Albumin Triglycerides Urine pH Vancomycin Trough Salicylates Crossmatch 08/30/17 08/30/17 08/31/17 16:47 21:36 04:28 WBC RBC Hgb Hct MCV MCH MCHC RDW [place] % (Auto) [place] # Baso # Seg Neutrophils % Monocytes % (Manual) Nucleated RBC % Seg Neutrophils # Monocytes # (Manual) PT INR APTT Heparin Anti-Xa Level POC ABG pH POC ABG pCO2 POC ABG pO2 Sodium Potassium 3.5 L Chloride 111.0 H Carbon Dioxide 19 L BUN 25 H Creatinine Glucose 53 L POC Glucose 159 H 110 H Calcium Phosphorus Magnesium AST ALT Alkaline Phosphatase C-Reactive Protein Total Protein 6.0 L D Albumin 2.2 L Triglycerides Urine pH Vancomycin Trough Salicylates Crossmatch 08/31/17 08/31/17 08/31/17 04:28 07:31 07:34 WBC RBC 2.99 L Hgb 7.8 L Hct 23.8 L MCV 80 L MCH 26 L MCHC RDW 22.7 H [place] % (Auto) 13.0 H [place] # 1.3 H Baso # Seg Neutrophils % Monocytes % (Manual) Nucleated RBC % Seg Neutrophils # Monocytes # (Manual) PT INR APTT Heparin Anti-Xa Level POC ABG pH POC ABG pCO2 POC ABG pO2 Sodium Potassium Chloride Carbon Dioxide BUN Creatinine Glucose POC Glucose < 40 L 42 L Calcium Phosphorus Magnesium AST ALT Alkaline Phosphatase C-Reactive Protein Total Protein Albumin Triglycerides Urine pH Vancomycin Trough Salicylates Crossmatch 08/31/17 08/31/17 08/31/17 09:10 16:45 22:56 WBC RBC Hgb Hct MCV MCH MCHC RDW [place] % (Auto) [place] # Baso # Seg Neutrophils % Monocytes % (Manual) Nucleated RBC % Seg Neutrophils # Monocytes # (Manual) PT INR APTT Heparin Anti-Xa Level POC ABG pH POC ABG pCO2 POC ABG pO2 Sodium Potassium Chloride Carbon Dioxide BUN Creatinine Glucose POC Glucose 64 L 173 H 167 H Calcium Phosphorus Magnesium AST ALT Alkaline Phosphatase C-Reactive Protein Total Protein Albumin Triglycerides Urine pH Vancomycin Trough Salicylates Crossmatch 09/01/17 09/01/17 09/01/17 04:05 04:05 07:26 WBC RBC Hgb 8.4 L Hct 26.3 L MCV MCH MCHC RDW [place] % (Auto) [place] # Baso # Seg Neutrophils % Monocytes % (Manual) Nucleated RBC % Seg Neutrophils # Monocytes # (Manual) PT INR APTT Heparin Anti-Xa Level POC ABG pH POC ABG pCO2 POC ABG pO2 Sodium Potassium Chloride 109.0 H Carbon Dioxide 17 L BUN 23 H Creatinine Glucose 187 H POC Glucose 256 H Calcium Phosphorus Magnesium AST ALT Alkaline Phosphatase C-Reactive Protein Total Protein Albumin Triglycerides 210 H Urine pH Vancomycin Trough Salicylates Crossmatch 09/01/17 09/01/17 09/01/17 10:43 10:43 11:53 WBC RBC Hgb Hct MCV MCH MCHC RDW [place] % (Auto) [place] # Baso # Seg Neutrophils % Monocytes % (Manual) Nucleated RBC % Seg Neutrophils # Monocytes # (Manual) PT INR APTT Heparin Anti-Xa Level POC ABG pH POC ABG pCO2 POC ABG pO2 Sodium Potassium Chloride Carbon Dioxide BUN Creatinine Glucose POC Glucose 251 H Calcium Phosphorus Magnesium AST ALT Alkaline Phosphatase C-Reactive Protein 28.80 H Total Protein Albumin Triglycerides Urine pH Vancomycin Trough 27.7 H Salicylates Crossmatch 09/01/17 09/01/17 09/01/17 17:05 20:46 Unknown WBC RBC Hgb Hct MCV MCH MCHC RDW [place] % (Auto) [place] # Baso # Seg Neutrophils % Monocytes % (Manual) Nucleated RBC % Seg Neutrophils # Monocytes # (Manual) PT INR APTT Heparin Anti-Xa Level 0.11 L POC ABG pH 7.485 H POC ABG pCO2 25.0 L POC ABG pO2 Sodium Potassium Chloride Carbon Dioxide BUN Creatinine Glucose POC Glucose 180 H Calcium Phosphorus Magnesium AST ALT Alkaline Phosphatase C-Reactive Protein Total Protein Albumin Triglycerides Urine pH Vancomycin Trough Salicylates Crossmatch 09/02/17 09/02/17 09/02/17 01:02 05:15 05:15 WBC RBC Hgb Hct MCV MCH MCHC RDW [place] % (Auto) [place] # Baso # Seg Neutrophils % Monocytes % (Manual) Nucleated RBC % Seg Neutrophils # Monocytes # (Manual) PT INR APTT Heparin Anti-Xa Level 0.13 L POC ABG pH POC ABG pCO2 POC ABG pO2 Sodium Potassium Chloride 110.3 H Carbon Dioxide 19 L BUN 23 H Creatinine Glucose 172 H POC Glucose 222 H Calcium Phosphorus Magnesium AST ALT Alkaline Phosphatase C-Reactive Protein Total Protein Albumin Triglycerides Urine pH Vancomycin Trough Salicylates Crossmatch 09/02/17 09/02/17 09/02/17 07:46 10:03 11:41 WBC RBC Hgb Hct MCV MCH MCHC RDW [place] % (Auto) [place] # Baso # Seg Neutrophils % Monocytes % (Manual) Nucleated RBC % Seg Neutrophils # Monocytes # (Manual) PT INR APTT Heparin Anti-Xa Level < 0.10 L POC ABG pH POC ABG pCO2 POC ABG pO2 Sodium Potassium Chloride Carbon Dioxide BUN Creatinine Glucose POC Glucose 217 H 211 H Calcium Phosphorus Magnesium AST ALT Alkaline Phosphatase C-Reactive Protein Total Protein Albumin Triglycerides Urine pH Vancomycin Trough Salicylates Crossmatch 09/02/17 09/02/17 09/02/17 16:43 19:24 22:06 WBC RBC Hgb Hct MCV MCH MCHC RDW [place] % (Auto) [place] # Baso # Seg Neutrophils % Monocytes % (Manual) Nucleated RBC % Seg Neutrophils # Monocytes # (Manual) PT INR APTT Heparin Anti-Xa Level 0.19 L POC ABG pH POC ABG pCO2 POC ABG pO2 Sodium Potassium Chloride Carbon Dioxide BUN Creatinine Glucose POC Glucose 247 H 196 H Calcium Phosphorus Magnesium AST ALT Alkaline Phosphatase C-Reactive Protein Total Protein Albumin Triglycerides Urine pH Vancomycin Trough Salicylates Crossmatch 09/03/17 09/03/17 09/03/17 04:50 04:50 08:02 WBC RBC 2.80 L Hgb 7.1 L Hct 22.5 L MCV 80 L MCH 25 L MCHC 31 L RDW 22.7 H [place] % (Auto) 7.6 H [place] # Baso # Seg Neutrophils % Monocytes % (Manual) Nucleated RBC % Seg Neutrophils # Monocytes # (Manual) PT INR APTT Heparin Anti-Xa Level POC ABG pH POC ABG pCO2 POC ABG pO2 Sodium Potassium Chloride 109.7 H Carbon Dioxide 20 L BUN 27 H Creatinine Glucose 193 H POC Glucose 226 H Calcium Phosphorus Magnesium AST ALT Alkaline Phosphatase 140 H C-Reactive Protein Total Protein Albumin 2.4 L Triglycerides Urine pH Vancomycin Trough Salicylates Crossmatch 09/03/17 09/03/17 09/03/17 11:54 16:26 22:03 WBC RBC Hgb Hct MCV MCH MCHC RDW [place] % (Auto) [place] # Baso # Seg Neutrophils % Monocytes % (Manual) Nucleated RBC % Seg Neutrophils # Monocytes # (Manual) PT INR APTT Heparin Anti-Xa Level POC ABG pH POC ABG pCO2 POC ABG pO2 Sodium Potassium Chloride Carbon Dioxide BUN Creatinine Glucose POC Glucose 221 H 123 H 206 H Calcium Phosphorus Magnesium AST ALT Alkaline Phosphatase C-Reactive Protein Total Protein Albumin Triglycerides Urine pH Vancomycin Trough Salicylates Crossmatch 09/04/17 09/04/17 09/04/17 07:56 11:35 16:30 WBC RBC Hgb Hct MCV MCH MCHC RDW [place] % (Auto) [place] # Baso # Seg Neutrophils % Monocytes % (Manual) Nucleated RBC % Seg Neutrophils # Monocytes # (Manual) PT INR APTT Heparin Anti-Xa Level POC ABG pH POC ABG pCO2 POC ABG pO2 Sodium Potassium Chloride Carbon Dioxide BUN Creatinine Glucose POC Glucose 205 H 263 H 158 H Calcium Phosphorus Magnesium AST ALT Alkaline Phosphatase C-Reactive Protein Total Protein Albumin Triglycerides Urine pH Vancomycin Trough Salicylates Crossmatch 09/04/17 09/05/17 09/05/17 22:33 08:00 08:00 WBC 12.5 H RBC 2.81 L Hgb 6.9 L Hct 22.6 L MCV 81 L MCH 24 L MCHC 30 L RDW 22.4 H [place] % (Auto) 8.0 H [place] # 1.0 H Baso # Seg Neutrophils % Monocytes % (Manual) Nucleated RBC % Seg Neutrophils # Monocytes # (Manual) PT INR APTT Heparin Anti-Xa Level POC ABG pH POC ABG pCO2 POC ABG pO2 Sodium Potassium Chloride 109.0 H Carbon Dioxide 20 L BUN 27 H Creatinine Glucose 219 H POC Glucose 217 H Calcium Phosphorus Magnesium AST ALT Alkaline Phosphatase 169 H C-Reactive Protein Total Protein Albumin 2.4 L Triglycerides Urine pH Vancomycin Trough Salicylates Crossmatch 09/05/17 09/05/17 09/05/17 11:58 15:52 22:35 WBC RBC Hgb Hct MCV MCH MCHC RDW [place] % (Auto) [place] # Baso # Seg Neutrophils % Monocytes % (Manual) Nucleated RBC % Seg Neutrophils # Monocytes # (Manual) PT INR APTT Heparin Anti-Xa Level POC ABG pH POC ABG pCO2 POC ABG pO2 Sodium Potassium Chloride Carbon Dioxide BUN Creatinine Glucose POC Glucose 251 H 200 H 259 H Calcium Phosphorus Magnesium AST ALT Alkaline Phosphatase C-Reactive Protein Total Protein Albumin Triglycerides Urine pH Vancomycin Trough Salicylates Crossmatch 09/05/17 09/06/17 09/06/17 23:55 08:19 09:32 WBC 12.0 H RBC 2.75 L 2.93 L Hgb 7.0 L 7.1 L Hct 22.2 L 23.5 L MCV 81 L 80 L MCH 25 L 24 L MCHC 31 L 30 L RDW 23.1 H 22.4 H [place] % (Auto) [place] # Baso # Seg Neutrophils % Monocytes % (Manual) Nucleated RBC % Seg Neutrophils # 8.1 H Monocytes # (Manual) PT INR APTT Heparin Anti-Xa Level POC ABG pH POC ABG pCO2 POC ABG pO2 Sodium Potassium Chloride Carbon Dioxide BUN Creatinine Glucose POC Glucose 210 H Calcium Phosphorus Magnesium AST ALT Alkaline Phosphatase C-Reactive Protein Total Protein Albumin Triglycerides Urine pH Vancomycin Trough Salicylates Crossmatch 09/06/17 09/06/17 09/06/17 12:08 16:15 21:17 WBC RBC 2.83 L Hgb 7.2 L Hct 22.9 L MCV 81 L MCH 25 L MCHC 31 L RDW 22.4 H [place] % (Auto) 8.1 H [place] # Baso # Seg Neutrophils % Monocytes % (Manual) Nucleated RBC % Seg Neutrophils # Monocytes # (Manual) PT INR APTT Heparin Anti-Xa Level POC ABG pH POC ABG pCO2 POC ABG pO2 Sodium Potassium Chloride Carbon Dioxide BUN Creatinine Glucose POC Glucose 179 H 157 H Calcium Phosphorus Magnesium AST ALT Alkaline Phosphatase C-Reactive Protein Total Protein Albumin Triglycerides Urine pH Vancomycin Trough Salicylates Crossmatch 09/06/17 09/07/17 09/07/17 23:17 07:40 07:40 WBC RBC 2.81 L Hgb 7.2 L Hct 22.4 L MCV 80 L MCH 26 L MCHC RDW 23.0 H [place] % (Auto) [place] # Baso # Seg Neutrophils % 73.7 H Monocytes % (Manual) Nucleated RBC % Seg Neutrophils # Monocytes # (Manual) PT INR APTT Heparin Anti-Xa Level POC ABG pH POC ABG pCO2 POC ABG pO2 Sodium Potassium Chloride 108.0 H Carbon Dioxide 21 L BUN Creatinine Glucose 186 H POC Glucose 195 H Calcium Phosphorus Magnesium AST ALT Alkaline Phosphatase 143 H C-Reactive Protein Total Protein Albumin 2.5 L Triglycerides Urine pH Vancomycin Trough Salicylates Crossmatch 09/07/17 09/07/17 09/07/17 07:40 08:40 11:35 WBC RBC Hgb Hct MCV MCH MCHC RDW [place] % (Auto) [place] # Baso # Seg Neutrophils % Monocytes % (Manual) Nucleated RBC % Seg Neutrophils # Monocytes # (Manual) PT INR APTT Heparin Anti-Xa Level POC ABG pH POC ABG pCO2 POC ABG pO2 Sodium Potassium Chloride 109.1 H Carbon Dioxide 21 L BUN Creatinine Glucose 183 H POC Glucose 218 H 229 H Calcium Phosphorus Magnesium AST ALT Alkaline Phosphatase 141 H C-Reactive Protein Total Protein Albumin 2.6 L Triglycerides Urine pH Vancomycin Trough Salicylates Crossmatch 09/07/17 09/07/17 09/07/17 14:57 16:35 21:30 WBC RBC 2.56 L Hgb 6.6 L Hct 20.5 L MCV 80 L MCH 26 L MCHC RDW 22.5 H [place] % (Auto) 8.1 H [place] # 0.9 H Baso # 0.2 H Seg Neutrophils % Monocytes % (Manual) Nucleated RBC % Seg Neutrophils # Monocytes # (Manual) PT INR APTT Heparin Anti-Xa Level POC ABG pH POC ABG pCO2 POC ABG pO2 68 L Sodium Potassium Chloride Carbon Dioxide BUN Creatinine Glucose POC Glucose 256 H Calcium Phosphorus Magnesium AST ALT Alkaline Phosphatase C-Reactive Protein Total Protein Albumin Triglycerides Urine pH Vancomycin Trough Salicylates Crossmatch 09/07/17 09/08/17 09/08/17 22:35 08:13 11:50 WBC RBC Hgb Hct MCV MCH MCHC RDW [place] % (Auto) [place] # Baso # Seg Neutrophils % Monocytes % (Manual) Nucleated RBC % Seg Neutrophils # Monocytes # (Manual) PT INR APTT Heparin Anti-Xa Level POC ABG pH POC ABG pCO2 POC ABG pO2 Sodium Potassium Chloride Carbon Dioxide BUN Creatinine Glucose POC Glucose 230 H 213 H 206 H Calcium Phosphorus Magnesium AST ALT Alkaline Phosphatase C-Reactive Protein Total Protein Albumin Triglycerides Urine pH Vancomycin Trough Salicylates Crossmatch 09/08/17 09/08/17 09/08/17 17:14 20:45 20:50 WBC 12.3 H RBC 2.74 L Hgb 6.7 L Hct 21.8 L MCV 79 L MCH 24 L MCHC 31 L RDW 23.0 [place] % (Auto) 7.7 H [place] # 0.9 H Baso # Seg Neutrophils % Monocytes % (Manual) Nucleated RBC % Seg Neutrophils # Monocytes # (Manual) PT INR APTT Heparin Anti-Xa Level 0.15 L POC ABG pH POC ABG pCO2 POC ABG pO2 Sodium Potassium Chloride Carbon Dioxide BUN Creatinine Glucose POC Glucose 210 H Calcium Phosphorus Magnesium AST ALT Alkaline Phosphatase C-Reactive Protein Total Protein Albumin Triglycerides Urine pH Vancomycin Trough Salicylates Crossmatch 09/08/17 09/09/17 09/09/17 22:08 06:50 06:50 WBC RBC 2.64 L Hgb 6.6 L Hct 21.2 L MCV 80 L MCH 25 L MCHC 31 L RDW 22.7 [place] % (Auto) 9.3 [place] # 1.0 H Baso # Seg Neutrophils % Monocytes % (Manual) Nucleated RBC % Seg Neutrophils # Monocytes # (Manual) PT INR APTT Heparin Anti-Xa Level POC ABG pH POC ABG pCO2 POC ABG pO2 Sodium 136 L Potassium Chloride Carbon Dioxide BUN Creatinine 0.7 L Glucose 182 H POC Glucose 217 H Calcium Phosphorus Magnesium AST ALT Alkaline Phosphatase C-Reactive Protein Total Protein Albumin 2.5 L Triglycerides Urine pH Vancomycin Trough Salicylates Crossmatch 09/09/17 09/09/17 09/09/17 08:00 11:24 16:40 WBC RBC Hgb Hct MCV MCH MCHC RDW [place] % (Auto) [place] # Baso # Seg Neutrophils % Monocytes % (Manual) Nucleated RBC % Seg Neutrophils # Monocytes # (Manual) PT INR APTT Heparin Anti-Xa Level POC ABG pH POC ABG pCO2 POC ABG pO2 Sodium Potassium Chloride Carbon Dioxide BUN Creatinine Glucose POC Glucose 245 H 257 H 220 H Calcium Phosphorus Magnesium AST ALT Alkaline Phosphatase C-Reactive Protein Total Protein Albumin Triglycerides Urine pH Vancomycin Trough Salicylates Crossmatch 09/09/17 09/09/17 09/09/17 17:50 19:14 19:14 WBC RBC 5.12 H Hgb Hct MCV 80 L MCH 25 L MCHC 31 L RDW 23.3 H [place] % (Auto) [place] # Baso # Seg Neutrophils % Monocytes % (Manual) Nucleated RBC % Seg Neutrophils # Monocytes # (Manual) PT INR APTT Heparin Anti-Xa Level < 0.10 L < 0.10 L POC ABG pH POC ABG pCO2 POC ABG pO2 Sodium Potassium Chloride Carbon Dioxide BUN Creatinine Glucose POC Glucose Calcium Phosphorus Magnesium AST ALT Alkaline Phosphatase C-Reactive Protein Total Protein Albumin Triglycerides Urine pH Vancomycin Trough Salicylates Crossmatch 09/09/17 09/10/17 09/10/17 23:50 03:55 03:55 WBC 11.1 H RBC 2.59 L Hgb 6.7 L D Hct 20.9 L D MCV 81 L MCH 26 L MCHC RDW 22.6 [place] % (Auto) 8.7 [place] # 1.0 H Baso # Seg Neutrophils % Monocytes % (Manual) Nucleated RBC % Seg Neutrophils # Monocytes # (Manual) PT INR APTT Heparin Anti-Xa Level POC ABG pH POC ABG pCO2 POC ABG pO2 Sodium Potassium Chloride Carbon Dioxide BUN Creatinine 0.7 L Glucose 191 H POC Glucose 192 H Calcium Phosphorus Magnesium AST ALT Alkaline Phosphatase C-Reactive Protein Total Protein Albumin Triglycerides Urine pH Vancomycin Trough Salicylates Crossmatch 09/10/17 09/10/17 09/10/17 08:39 11:33 14:30 WBC RBC Hgb 6.1 L Hct 19.8 L* MCV MCH MCHC RDW [place] % (Auto) [place] # Baso # Seg Neutrophils % Monocytes % (Manual) Nucleated RBC % Seg Neutrophils # Monocytes # (Manual) PT INR APTT Heparin Anti-Xa Level POC ABG pH POC ABG pCO2 POC ABG pO2 Sodium Potassium Chloride Carbon Dioxide BUN Creatinine Glucose POC Glucose 233 H 231 H Calcium Phosphorus Magnesium AST ALT Alkaline Phosphatase C-Reactive Protein Total Protein Albumin Triglycerides Urine pH Vancomycin Trough Salicylates Crossmatch 09/10/17 09/10/17 09/10/17 16:20 16:50 21:25 WBC RBC Hgb Hct MCV MCH MCHC RDW [place] % (Auto) [place] # Baso # Seg Neutrophils % Monocytes % (Manual) Nucleated RBC % Seg Neutrophils # Monocytes # (Manual) PT INR APTT Heparin Anti-Xa Level POC ABG pH POC ABG pCO2 POC ABG pO2 Sodium Potassium Chloride Carbon Dioxide BUN Creatinine Glucose POC Glucose 189 H 113 H Calcium Phosphorus Magnesium AST ALT Alkaline Phosphatase C-Reactive Protein Total Protein Albumin Triglycerides Urine pH Vancomycin Trough Salicylates Crossmatch See Detail 09/11/17 09/11/17 09/11/17 04:27 08:06 11:32 WBC RBC Hgb Hct MCV MCH MCHC [place] % (Auto) [place] # Baso # Seg Neutrophils % Monocytes % (Manual) Nucleated RBC % Seg Neutrophils # Monocytes # (Manual) PT INR APTT Heparin Anti-Xa Level POC ABG pH POC ABG pCO2 POC ABG pO2 Sodium Potassium Chloride Carbon Dioxide BUN Creatinine Glucose 174 H POC Glucose 232 H 298 H Calcium Phosphorus Magnesium AST ALT Alkaline Phosphatase C-Reactive Protein Total Protein Albumin Triglycerides Urine pH Vancomycin Trough Salicylates Crossmatch 09/11/17 09/11/17 09/11/17 14:18 14:20 17:34 WBC RBC Hgb 8.3 L Hct 25.6 L MCV MCH MCHC RDW [place] % (Auto) [place] # Baso # Seg Neutrophils % Monocytes % (Manual) Nucleated RBC % Seg Neutrophils # Monocytes # (Manual) PT INR APTT Heparin Anti-Xa Level < 0.10 L POC ABG pH POC ABG pCO2 POC ABG pO2 Sodium Potassium Chloride Carbon Dioxide BUN Creatinine Glucose POC Glucose 184 H Calcium Phosphorus Magnesium AST ALT Alkaline Phosphatase C-Reactive Protein Total Protein Albumin Triglycerides Urine pH Vancomycin Trough Salicylates Crossmatch 09/11/17 09/11/17 09/12/17 20:11 22:15 06:08 WBC RBC 3.33 L Hgb 8.6 L Hct 26.9 L MCV 81 L MCH 26 L MCHC RDW 20.3 H [place] % (Auto) 8.9 H [place] # Baso # Seg Neutrophils % Monocytes % (Manual) Nucleated RBC % Seg Neutrophils # Monocytes # (Manual) PT INR APTT Heparin Anti-Xa Level POC ABG pH POC ABG pCO2 POC ABG pO2 Sodium Potassium Chloride Carbon Dioxide BUN 22 H Creatinine Glucose 186 H POC Glucose 184 H Calcium Phosphorus Magnesium AST ALT Alkaline Phosphatase C-Reactive Protein Total Protein Albumin Triglycerides Urine pH Vancomycin Trough Salicylates Crossmatch 09/12/17 09/12/17 09/12/17 08:09 11:20 17:49 WBC RBC Hgb Hct MCV MCH MCHC RDW [place] % (Auto) [place] # Baso # Seg Neutrophils % Monocytes % (Manual) Nucleated RBC % Seg Neutrophils # Monocytes # (Manual) PT INR APTT Heparin Anti-Xa Level POC ABG pH POC ABG pCO2 POC ABG pO2 Sodium Potassium Chloride Carbon Dioxide BUN Creatinine Glucose POC Glucose 228 H 238 H 197 H Calcium Phosphorus Magnesium AST ALT Alkaline Phosphatase C-Reactive Protein Total Protein Albumin Triglycerides Urine pH Vancomycin Trough Salicylates Crossmatch 09/12/17 09/13/17 09/13/17 22:50 03:25 07:30 WBC RBC Hgb Hct MCV MCH MCHC RDW [place] % (Auto) [place] # Baso # Seg Neutrophils % Monocytes % (Manual) Nucleated RBC % Seg Neutrophils # Monocytes # (Manual) PT INR APTT Heparin Anti-Xa Level POC ABG pH POC ABG pCO2 POC ABG pO2 Sodium Potassium Chloride 97.5 L Carbon Dioxide BUN 22 H Creatinine Glucose 192 H POC Glucose 186 H 210 H Calcium Phosphorus Magnesium AST ALT Alkaline Phosphatase C-Reactive Protein Total Protein Albumin Triglycerides Urine pH Vancomycin Trough Salicylates Crossmatch 09/13/17 09/13/17 09/13/17 11:55 16:56 23:57 WBC RBC Hgb Hct MCV MCH MCHC RDW [place] % (Auto) [place] # Baso # Seg Neutrophils % Monocytes % (Manual) Nucleated RBC % Seg Neutrophils # Monocytes # (Manual) PT INR APTT Heparin Anti-Xa Level POC ABG pH POC ABG pCO2 POC ABG pO2 Sodium Potassium Chloride Carbon Dioxide BUN Creatinine Glucose POC Glucose 224 H 179 H 153 H Calcium Phosphorus Magnesium AST ALT Alkaline Phosphatase C-Reactive Protein Total Protein Albumin Triglycerides Urine pH Vancomycin Trough Salicylates Crossmatch 09/14/17 09/14/17 09/14/17 04:04 06:20 08:34 WBC RBC Hgb Hct MCV MCH MCHC RDW [place] % (Auto) [place] # Baso # Seg Neutrophils % Monocytes % (Manual) Nucleated RBC % Seg Neutrophils # Monocytes # (Manual) PT INR APTT Heparin Anti-Xa Level 0.72 H POC ABG pH POC ABG pCO2 POC ABG pO2 Sodium Potassium Chloride Carbon Dioxide BUN 24 H Creatinine Glucose 198 H POC Glucose 205 H Calcium Phosphorus Magnesium AST ALT Alkaline Phosphatase C-Reactive Protein Total Protein Albumin Triglycerides Urine pH Vancomycin Trough Salicylates Crossmatch 09/14/17 09/14/17 09/14/17 11:28 15:33 23:06 WBC RBC Hgb Hct MCV MCH MCHC RDW [place] % (Auto) [place] # Baso # Seg Neutrophils % Monocytes % (Manual) Nucleated RBC % Seg Neutrophils # Monocytes # (Manual) PT INR APTT Heparin Anti-Xa Level POC ABG pH POC ABG pCO2 POC ABG pO2 Sodium Potassium Chloride Carbon Dioxide BUN Creatinine Glucose POC Glucose 205 H 187 H 177 H Calcium Phosphorus Magnesium AST ALT Alkaline Phosphatase C-Reactive Protein Total Protein Albumin Triglycerides Urine pH Vancomycin Trough Salicylates Crossmatch 09/15/17 09/15/17 09/15/17 04:00 07:52 12:00 WBC RBC Hgb Hct MCV MCH MCHC RDW [place] % (Auto) [place] # Baso # Seg Neutrophils % Monocytes % (Manual) Nucleated RBC % Seg Neutrophils # Monocytes # (Manual) PT INR APTT Heparin Anti-Xa Level POC ABG pH POC ABG pCO2 POC ABG pO2 Sodium Potassium Chloride Carbon Dioxide BUN 29 H Creatinine Glucose 212 H POC Glucose 254 H 236 H Calcium Phosphorus Magnesium AST ALT Alkaline Phosphatase C-Reactive Protein Total Protein Albumin Triglycerides Urine pH Vancomycin Trough Salicylates Crossmatch 09/15/17 09/15/17 09/15/17 13:28 17:07 17:58 WBC RBC 3.38 L Hgb 8.6 L Hct 27.4 L MCV 81 L MCH 26 L MCHC 31 L RDW 19.7 H [place] % (Auto) [place] # Baso # Seg Neutrophils % 70.1 H Monocytes % (Manual) Nucleated RBC % Seg Neutrophils # Monocytes # (Manual) PT INR APTT Heparin Anti-Xa Level POC ABG pH POC ABG pCO2 POC ABG pO2 Sodium Potassium Chloride Carbon Dioxide BUN Creatinine Glucose POC Glucose 203 H 208 H Calcium Phosphorus Magnesium AST ALT Alkaline Phosphatase C-Reactive Protein Total Protein Albumin Triglycerides Urine pH Vancomycin Trough Salicylates Crossmatch 09/15/17 09/16/17 09/16/17 22:42 07:28 07:44 WBC RBC Hgb Hct MCV MCH MCHC RDW [place] % (Auto) [place] # Baso # Seg Neutrophils % Monocytes % (Manual) Nucleated RBC % Seg Neutrophils # Monocytes # (Manual) PT INR APTT Heparin Anti-Xa Level POC ABG pH POC ABG pCO2 POC ABG pO2 Sodium Potassium Chloride Carbon Dioxide BUN 44 H Creatinine Glucose 159 H POC Glucose 171 H 172 H Calcium Phosphorus Magnesium AST ALT Alkaline Phosphatase C-Reactive Protein Total Protein Albumin Triglycerides Urine pH Vancomycin Trough Salicylates Crossmatch 09/16/17 09/16/17 09/16/17 11:45 16:41 21:41 WBC RBC Hgb Hct MCV MCH MCHC RDW [place] % (Auto) [place] # Baso # Seg Neutrophils % Monocytes % (Manual) Nucleated RBC % Seg Neutrophils # Monocytes # (Manual) PT INR APTT Heparin Anti-Xa Level POC ABG pH POC ABG pCO2 POC ABG pO2 Sodium Potassium Chloride Carbon Dioxide BUN Creatinine Glucose POC Glucose 190 H 186 H 137 H Calcium Phosphorus Magnesium AST ALT Alkaline Phosphatase C-Reactive Protein Total Protein Albumin Triglycerides Urine pH Vancomycin Trough Salicylates Crossmatch 09/17/17 09/17/17 09/17/17 04:30 04:40 05:27 WBC RBC Hgb 7.3 L Hct 22.7 L MCV MCH MCHC RDW [place] % (Auto) [place] # Baso # Seg Neutrophils % Monocytes % (Manual) Nucleated RBC % Seg Neutrophils # Monocytes # (Manual) PT INR APTT Heparin Anti-Xa Level POC ABG pH POC ABG pCO2 POC ABG pO2 Sodium Potassium Chloride Carbon Dioxide BUN 45 H Creatinine Glucose 166 H POC Glucose Calcium Phosphorus Magnesium AST ALT Alkaline Phosphatase C-Reactive Protein Total Protein Albumin Triglycerides Urine pH Vancomycin Trough Salicylates Crossmatch See Detail 09/17/17 09/17/17 09/17/17 07:54 11:59 16:28 WBC RBC Hgb Hct MCV MCH MCHC RDW [place] % (Auto) [place] # Baso # Seg Neutrophils % Monocytes % (Manual) Nucleated RBC % Seg Neutrophils # Monocytes # (Manual) PT INR APTT Heparin Anti-Xa Level POC ABG pH POC ABG pCO2 POC ABG pO2 Sodium Potassium Chloride Carbon Dioxide BUN Creatinine Glucose POC Glucose 189 H 185 H 158 H Calcium Phosphorus Magnesium AST ALT Alkaline Phosphatase C-Reactive Protein Total Protein Albumin Triglycerides Urine pH Vancomycin Trough Salicylates Crossmatch 09/17/17 09/18/17 09/18/17 22:27 07:18 11:52 WBC RBC Hgb Hct MCV MCH MCHC RDW [place] % (Auto) [place] # Baso # Seg Neutrophils % Monocytes % (Manual) Nucleated RBC % Seg Neutrophils # Monocytes # (Manual) PT INR APTT Heparin Anti-Xa Level POC ABG pH POC ABG pCO2 POC ABG pO2 Sodium Potassium Chloride Carbon Dioxide BUN Creatinine Glucose POC Glucose 174 H 314 H 312 H Calcium Phosphorus Magnesium AST ALT Alkaline Phosphatase C-Reactive Protein Total Protein Albumin Triglycerides Urine pH Vancomycin Trough Salicylates Crossmatch 09/18/17 09/18/17 09/18/17 16:49 22:50 Unknown WBC RBC Hgb 10.8 L Hct 33.3 L MCV MCH MCHC RDW [place] % (Auto) [place] # Baso # Seg Neutrophils % Monocytes % (Manual) Nucleated RBC % Seg Neutrophils # Monocytes # (Manual) PT INR APTT Heparin Anti-Xa Level POC ABG pH POC ABG pCO2 POC ABG pO2 Sodium Potassium Chloride Carbon Dioxide BUN Creatinine Glucose POC Glucose 235 H 191 H Calcium Phosphorus Magnesium AST ALT Alkaline Phosphatase C-Reactive Protein Total Protein Albumin Triglycerides Urine pH Vancomycin Trough Salicylates Crossmatch 09/18/17 09/18/17 09/19/17 Unknown Unknown 07:34 WBC RBC Hgb 11.0 L D Hct 32.9 L D MCV 83 L MCH MCHC RDW 19.3 H [place] % (Auto) [place] # Baso # Seg Neutrophils % Monocytes % (Manual) Nucleated RBC % Seg Neutrophils # Monocytes # (Manual) PT INR APTT Heparin Anti-Xa Level POC ABG pH POC ABG pCO2 POC ABG pO2 Sodium Potassium Chloride Carbon Dioxide BUN 37 H Creatinine Glucose 275 H POC Glucose 266 H Calcium Phosphorus Magnesium AST ALT Alkaline Phosphatase C-Reactive Protein Total Protein Albumin 2.2 L Triglycerides Urine pH Vancomycin Trough Salicylates Crossmatch 09/19/17 09/19/17 09/19/17 10:15 11:23 11:26 WBC RBC Hgb 10.4 L Hct 31.7 L MCV MCH MCHC RDW 19.3 H [place] % (Auto) 8.1 H [place] # Baso # Seg Neutrophils % Monocytes % (Manual) Nucleated RBC % Seg Neutrophils # Monocytes # (Manual) PT INR APTT Heparin Anti-Xa Level POC ABG pH POC ABG pCO2 POC ABG pO2 Sodium Potassium Chloride Carbon Dioxide 21 L BUN 50 H Creatinine Glucose 263 H POC Glucose 284 H Calcium Phosphorus Magnesium AST 50 H ALT 78 H Alkaline Phosphatase C-Reactive Protein Total Protein Albumin 2.5 L Triglycerides Urine pH Vancomycin Trough Salicylates Crossmatch 09/19/17 09/19/17 09/20/17 17:20 22:25 03:15 WBC RBC Hgb Hct MCV MCH MCHC RDW [place] % (Auto) [place] # Baso # Seg Neutrophils % Monocytes % (Manual) Nucleated RBC % Seg Neutrophils # Monocytes # (Manual) PT INR APTT Heparin Anti-Xa Level POC ABG pH POC ABG pCO2 POC ABG pO2 Sodium Potassium Chloride Carbon Dioxide BUN 50 H Creatinine Glucose 217 H POC Glucose 143 H 223 H Calcium Phosphorus Magnesium AST 222 H ALT 335 H Alkaline Phosphatase C-Reactive Protein Total Protein 6.0 L Albumin 2.3 L Triglycerides Urine pH Vancomycin Trough Salicylates Crossmatch 09/20/17 09/20/17 09/20/17 03:15 07:40 11:35 WBC RBC 3.22 L Hgb 8.9 L Hct 27.4 L MCV MCH MCHC RDW 19.6 H [place] % (Auto) 10.5 H [place] # 0.9 H Baso # Seg Neutrophils % Monocytes % (Manual) Nucleated RBC % Seg Neutrophils # Monocytes # (Manual) PT INR APTT Heparin Anti-Xa Level POC ABG pH POC ABG pCO2 POC ABG pO2 Sodium Potassium Chloride Carbon Dioxide BUN Creatinine Glucose POC Glucose 187 H 267 H Calcium Phosphorus Magnesium AST ALT Alkaline Phosphatase C-Reactive Protein Total Protein Albumin Triglycerides Urine pH Vancomycin Trough Salicylates Crossmatch 09/20/17 09/20/17 09/21/17 16:42 22:14 05:20 WBC RBC Hgb Hct MCV MCH MCHC RDW [place] % (Auto) [place] # Baso # Seg Neutrophils % Monocytes % (Manual) Nucleated RBC % Seg Neutrophils # Monocytes # (Manual) PT INR APTT Heparin Anti-Xa Level POC ABG pH POC ABG pCO2 POC ABG pO2 Sodium 136 L Potassium Chloride Carbon Dioxide 21 L BUN 71 H Creatinine 1.8 H D Glucose 279 H POC Glucose 264 H 289 H Calcium Phosphorus Magnesium 2.40 H AST ALT Alkaline Phosphatase C-Reactive Protein Total Protein Albumin Triglycerides Urine pH Vancomycin Trough Salicylates Crossmatch 09/21/17 09/21/17 09/21/17 07:22 10:51 10:51 WBC RBC 3.06 L Hgb 8.5 L Hct 26.1 L MCV MCH MCHC RDW 19.7 H [place] % (Auto) 8.3 H [place] # Baso # Seg Neutrophils % Monocytes % (Manual) Nucleated RBC % Seg Neutrophils # Monocytes # (Manual) PT INR APTT Heparin Anti-Xa Level POC ABG pH POC ABG pCO2 POC ABG pO2 Sodium Potassium Chloride Carbon Dioxide 19 L BUN 71 H Creatinine 2.0 H Glucose 265 H POC Glucose 341 H Calcium Phosphorus Magnesium AST ALT 132 H Alkaline Phosphatase C-Reactive Protein Total Protein 6.0 L Albumin 2.3 L Triglycerides Urine pH Vancomycin Trough Salicylates Crossmatch 09/21/17 09/21/17 09/21/17 11:38 16:25 22:57 WBC RBC Hgb Hct MCV MCH MCHC RDW [place] % (Auto) [place] # Baso # Seg Neutrophils % Monocytes % (Manual) Nucleated RBC % Seg Neutrophils # Monocytes # (Manual) PT INR APTT Heparin Anti-Xa Level POC ABG pH POC ABG pCO2 POC ABG pO2 Sodium Potassium Chloride Carbon Dioxide BUN Creatinine Glucose POC Glucose 324 H 284 H 247 H Calcium Phosphorus Magnesium AST ALT Alkaline Phosphatase C-Reactive Protein Total Protein Albumin Triglycerides Urine pH Vancomycin Trough Salicylates Crossmatch 09/22/17 09/22/17 09/22/17 04:30 04:30 04:31 WBC RBC Hgb Hct MCV MCH MCHC RDW [place] % (Auto) [place] # Baso # Seg Neutrophils % Monocytes % (Manual) Nucleated RBC % Seg Neutrophils # Monocytes # (Manual) PT INR APTT Heparin Anti-Xa Level POC ABG pH POC ABG pCO2 POC ABG pO2 Sodium 136 L Potassium Chloride Carbon Dioxide 18 L BUN 87 H Creatinine 2.3 H Glucose 331 H POC Glucose 309 H Calcium Phosphorus 5.20 H Magnesium 2.60 H AST ALT 96 H Alkaline Phosphatase C-Reactive Protein Total Protein Albumin 2.6 L Triglycerides Urine pH Vancomycin Trough Salicylates Crossmatch 09/22/17 09/22/17 09/22/17 07:10 07:21 08:43 WBC RBC 2.93 L Hgb 9.6 L Hct 28.1 L MCV 96 H MCH 33 H MCHC RDW 20.5 H [place] % (Auto) [place] # Baso # Seg Neutrophils % 79.5 H Monocytes % (Manual) Nucleated RBC % Seg Neutrophils # Monocytes # (Manual) PT INR APTT Heparin Anti-Xa Level POC ABG pH POC ABG pCO2 POC ABG pO2 Sodium Potassium Chloride Carbon Dioxide BUN Creatinine Glucose POC Glucose 325 H 341 H Calcium Phosphorus Magnesium AST ALT Alkaline Phosphatase C-Reactive Protein Total Protein Albumin Triglycerides Urine pH Vancomycin Trough Salicylates Crossmatch 09/22/17 09/22/17 09/22/17 11:28 11:47 13:25 WBC RBC Hgb Hct MCV MCH MCHC RDW [place] % (Auto) [place] # Baso # Seg Neutrophils % Monocytes % (Manual) Nucleated RBC % Seg Neutrophils # Monocytes # (Manual) PT INR APTT Heparin Anti-Xa Level POC ABG pH 7.256 L POC ABG pCO2 POC ABG pO2 70 L Sodium Potassium Chloride Carbon Dioxide BUN Creatinine Glucose POC Glucose 384 H Calcium Phosphorus Magnesium AST ALT Alkaline Phosphatase C-Reactive Protein 6.60 H Total Protein Albumin Triglycerides Urine pH Vancomycin Trough Salicylates Crossmatch 09/22/17 09/22/17 09/22/17 15:23 17:39 21:49 WBC RBC Hgb Hct MCV MCH MCHC RDW [place] % (Auto) [place] # Baso # Seg Neutrophils % Monocytes % (Manual) Nucleated RBC % Seg Neutrophils # Monocytes # (Manual) PT INR APTT Heparin Anti-Xa Level POC ABG pH POC ABG pCO2 POC ABG pO2 Sodium Potassium Chloride Carbon Dioxide BUN Creatinine Glucose POC Glucose 364 H 332 H 290 H Calcium Phosphorus Magnesium AST ALT Alkaline Phosphatase C-Reactive Protein Total Protein Albumin Triglycerides Urine pH Vancomycin Trough Salicylates Crossmatch 09/23/17 09/23/17 09/23/17 01:45 04:55 05:11 WBC RBC Hgb Hct MCV MCH MCHC RDW [place] % (Auto) [place] # Baso # Seg Neutrophils % Monocytes % (Manual) Nucleated RBC % Seg Neutrophils # Monocytes # (Manual) PT INR APTT Heparin Anti-Xa Level POC ABG pH 7.333 L POC ABG pCO2 POC ABG pO2 132 H Sodium 134 L Potassium Chloride Carbon Dioxide 18 L BUN 103 H Creatinine 2.6 H Glucose 326 H POC Glucose 346 H Calcium Phosphorus 5.40 H Magnesium 2.60 H AST ALT Alkaline Phosphatase C-Reactive Protein Total Protein Albumin Triglycerides Urine pH Vancomycin Trough Salicylates Crossmatch 09/23/17 09/23/17 05:46 10:13 WBC RBC Hgb Hct MCV MCH MCHC [place] % (Auto) [place] # Baso # Seg Neutrophils % Monocytes % (Manual) Nucleated RBC % Seg Neutrophils # Monocytes # (Manual) PT INR APTT Heparin Anti-Xa Level POC ABG pH POC ABG pCO2 POC ABG pO2 Sodium Potassium Chloride Carbon Dioxide BUN Creatinine Glucose POC Glucose 307 H 307 H Calcium Phosphorus Magnesium AST ALT Alkaline Phosphatase C-Reactive Protein Total Protein Albumin Triglycerides Urine pH Vancomycin Trough Salicylates Crossmatch ED Critical Care Note - Critical Care Note Total Time (mins): 35 Critical care time in (mins) excluding proc time.: 35 Critical care attestation.: If time is entered above; I have spent that time in minutes in the direct care of this critically ill patient, excluding procedure time.
[2017-09-23] MEDS ORDERED: INTRALIPID 20% 250 ML IV SCH (20:00)
[2017-09-23] MEDS ORDERED: TPN ADULT 2,016 ML IV SCH (20:00)
--- NOTE | 2017-09-23 20:02 | Progress Note ---
Assessment and Plan - Patient Problems (1) Deep vein blood clot of left lower extremity Current Visit: Yes Status: Acute Plan to address problem: see below. no new issues at this time. See notes. (2) Colon cancer metastasized to multiple sites Current Visit: Yes Status: Ruled-out Plan to address problem: see notes. eventually will get chemo/xrt. once stable. (3) Lung mass Current Visit: Yes Status: Acute Plan to address problem: see notes. (4) Pulmonary embolism Current Visit: Yes Status: Acute Plan to address problem: anticoags. see notes. no more anti coags. (5) DVT (deep venous thrombosis) Current Visit: Yes Status: Acute Qualifiers: Laterality: left Plan to address problem: anti coags. no more. (6) Anemia Current Visit: Yes Status: Acute Qualifiers: Iron deficiency anemia type: chronic blood loss Plan to address problem: see notes. will transfuse. will repeat labs. stable (7) Skin macule or macular rash Current Visit: Yes Status: Acute Plan to address problem: Most likely due to contrast use during procedure. Tx is steroid. Subjective Date of service: 09/23/17 Principal diagnosis: GI bleeding, colon cancer Interval history: Patient seen/examined, record reviewed, case d/w his daughter at the bed side.No procedure was done today. I have d/w DR BOYD today, and he will see patient .He is confused today, with some lethargy. Patient seen/examined, resting in bed, labs reviewed, notes reviewed. DR BOYD not available yet, so i am seeing patient today.No new issues at this time Patient seen/resting in bed, still some what confused.Notes reviewed, Lung lesion now ? for mets.I have updated DR BOYD today Patient seen/examined, labs reviewed.H/H 6.6 , I have spoken to his nurse, and will draw from a non heparin line Stat. Patient seen, resting in bed, labs reviewed. I have d/w the nurse, and will order PRBC. Patient seen/examined, resting in bed, labs reviewed, case d/w patient and family at the bed side. He is s/p 2uPRBC transfusion.He is scheduled for IVC Filter placement, after which he can be transitioned to oral anticoagulation. eloquis. he should be able to transfer to chair, and back to bed once Heparin in therapeutic range. Patient seen/examined, labs reviewed, case d/w patient, and family.IVC filter not placed, so patient restarted on his Heparin.once placed, then patient can be ab;e to move around. Patient seen/examined, ,resting in bed, family at the bed side, IVC filter placement was not done. for some unknown reason..I have discussed with DR Mirza this morning that once Filter placed, he may be d/c home to start chemo. Patient seen/examined, case d/w patient / at the bed side.I will speak with IR about Filter placement, so patient can proceed with chemo. Patient seen/examined, resting in bed, record reviewed, No IVC filter yet. Patient seen/examined, case d/w him, and family. I had spoken to DR LOJA, and the conclusion was that patient will be switched to LMWH tx dose for probably indefinite, but if any surgical procedure is intended, or there is another thrombotic event, then he will get an IVC filter.I will d/w DR Mirza tomorrow, and if he can be d/c soon so he can get ready for chemo. Patient seen/examined, resting in bed, appears slightly lethargic, at the bed side, case d/w both, and with the primary team, Dr Lewis. Patient having GI bleed actively, heparin on hold now for 2days. patient also having projectile emesis bile like. I think that due to this new development, Patient can not be on anticoagulation,and he still remains pro thrombotic. This will make him a candidate for an alternative measure such as an IVC filter..Any major procedure such as GI scope can can even result in thrombotic event.He will need abdominal imaging also to r/o obstruction. Patient seen/examined, resting in bed, notes reviewed, patient asleep.I have reviewed notes , and glad that DR Longoria has concord with recommendation for IVC Filter.. patient seen/examined, notes reviewed. IVC filter placement completed, as per patient, who is more alert at this time. patient seen/examined , resting in bed, vss, afebrile, some what lethargic, family at the bed side.Skin of the extremity, with diffuse purpura., started post surgery.,almost like vasculitis.may need steroid trial., because this may infact be due to contrast ,which may also be delayed. Patient seen/examined, in the ICU center where he was transfered due to resp distress.I had suggested steroid, since this is looking more like contrast induced, , he now has acute renal failure in part due to same reason of contrast , and perhaps due to hypotension. I have discussed with DR Poe, and he will go ahead and order some steroid, and renal consult, and some insulin coverage. Patient seen/examined, resting in bed, on vent support, at the bed side, case d/w her. I have also reviewed others notes.He will need a new lab draw for tomorrow, and will follow you. Objective - Constitutional Vitals: Vital Signs - 12hr 09/23/17 09/23/17 09/23/17 08:00 08:11 08:21 Temperature Pulse Rate 55 L 60 56 L Respiratory 19 25 H 25 H Rate Blood Pressure 153/68 153/68 153/68 O2 Sat by Pulse 98 99 100 Oximetry 09/23/17 09/23/17 09/23/17 08:30 08:41 08:51 Temperature Pulse Rate 54 L 54 L 55 L Respiratory 25 H 25 H 25 H Rate Blood Pressure 135/64 135/64 135/64 O2 Sat by Pulse 97 99 100 Oximetry 09/23/17 09/23/17 09/23/17 09:00 09:11 09:21 Temperature 97.3 F L Pulse Rate 52 L 51 L 53 L Respiratory 25 H 25 H 24 Rate Blood Pressure 150/69 150/69 146/68 O2 Sat by Pulse 100 100 100 Oximetry 09/23/17 09/23/17 09/23/17 09:30 09:41 09:51 Temperature Pulse Rate 59 L 57 L 56 L Respiratory 14 25 H 12 Rate Blood Pressure 146/68 153/60 135/63 O2 Sat by Pulse 100 100 99 Oximetry 09/23/17 09/23/17 09/23/17 10:00 10:11 10:20 Temperature Pulse Rate 62 56 L 67 Respiratory 25 H 25 H 18 Rate Blood Pressure 147/62 147/62 134/76 O2 Sat by Pulse 100 100 95 Oximetry 09/23/17 09/23/17 09/23/17 10:30 10:41 10:51 Temperature Pulse Rate 58 L 69 60 Respiratory 25 H 20 25 H Rate Blood Pressure 124/54 124/54 124/54 O2 Sat by Pulse 100 97 100 Oximetry 09/23/17 09/23/17 09/23/17 11:01 11:11 11:21 Temperature Pulse Rate 57 L 58 L 60 Respiratory 24 22 25 H Rate Blood Pressure 108/50 108/50 108/50 O2 Sat by Pulse 99 97 100 Oximetry 09/23/17 09/23/17 09/23/17 11:30 11:41 11:51 Temperature Pulse Rate 61 59 L 58 L Respiratory 25 H 25 H 25 H Rate Blood Pressure 102/57 102/57 102/57 O2 Sat by Pulse 100 99 100 Oximetry 09/23/17 09/23/17 09/23/17 12:00 12:11 12:21 Temperature 97.4 F L Pulse Rate 58 L 58 L 57 L Respiratory 25 H 25 H 25 H Rate Blood Pressure 111/55 111/55 111/55 O2 Sat by Pulse 100 100 100 Oximetry 09/23/17 09/23/17 09/23/17 12:30 12:41 12:51 Temperature Pulse Rate 56 L 56 L 57 L Respiratory 25 H 25 H 25 H Rate Blood Pressure 91/47 91/47 91/47 O2 Sat by Pulse 100 100 100 Oximetry 09/23/17 09/23/17 09/23/17 13:00 13:11 13:21 Temperature Pulse Rate 57 L 56 L 56 L Respiratory 25 H 25 H 25 H Rate Blood Pressure 99/54 99/54 99/54 O2 Sat by Pulse 100 100 100 Oximetry 09/23/17 09/23/17 09/23/17 13:30 13:41 13:45 Temperature Pulse Rate 55 L 56 L 58 L Respiratory 25 H 25 H 26 H Rate Blood Pressure 96/46 96/46 111/55 O2 Sat by Pulse 100 100 99 Oximetry 09/23/17 09/23/17 09/23/17 13:51 14:00 14:11 Temperature Pulse Rate 61 60 59 L Respiratory 13 13 11 L Rate Blood Pressure 96/46 109/51 109/51 O2 Sat by Pulse 100 99 100 Oximetry 09/23/17 09/23/17 09/23/17 14:21 14:30 14:41 Temperature Pulse Rate 59 L 59 L 60 Respiratory 13 13 13 Rate Blood Pressure 109/51 115/56 115/56 O2 Sat by Pulse 100 99 100 Oximetry 1209/23/17 09/23/17 14:51 15:00 15:11 Temperature Pulse Rate 68 64 63 Respiratory 13 14 14 Rate Blood Pressure 115/56 124/53 124/53 O2 Sat by Pulse 98 100 98 Oximetry 09/23/17 09/23/17 09/23/17 15:21 15:22 15:30 Temperature Pulse Rate 75 71 66 Respiratory 25 H 25 H Rate Blood Pressure 124/53 124/53 126/60 O2 Sat by Pulse 100 100 100 Oximetry 09/23/17 09/23/17 09/23/17 15:41 15:51 16:00 Temperature 98.4 F Pulse Rate 72 65 Respiratory 24 25 H Rate Blood Pressure 126/60 126/60 O2 Sat by Pulse 98 99 Oximetry 09/23/17 09/23/17 09/23/17 16:01 16:11 16:21 Temperature Pulse Rate 69 65 69 Respiratory 16 25 H 25 H Rate Blood Pressure 121/58 121/58 121/58 O2 Sat by Pulse 97 97 96 Oximetry 09/23/17 09/23/17 09/23/17 16:30 16:41 16:51 Temperature Pulse Rate 65 66 64 Respiratory 25 H 25 H 25 H Rate Blood Pressure 134/62 134/62 134/62 O2 Sat by Pulse 97 96 96 Oximetry 09/23/17 09/23/17 09/23/17 17:00 17:11 17:21 Temperature Pulse Rate 63 62 69 Respiratory 25 H 25 H 26 H Rate Blood Pressure 120/57 134/62 134/62 O2 Sat by Pulse 95 99 95 Oximetry 09/23/17 09/23/17 09/23/17 17:30 17:41 17:51 Temperature Pulse Rate 63 60 59 L Respiratory 25 H 25 H 25 H Rate Blood Pressure 130/65 130/65 130/65 O2 Sat by Pulse 97 99 99 Oximetry 09/23/17 18:00 Temperature Pulse Rate 60 Respiratory 25 H Rate Blood Pressure 128/61 O2 Sat by Pulse 99 Oximetry General appearance: Present: mild distress - EENT Eyes: PERRL, EOM intact ENT: hearing intact, clear oral mucosa Ears: bilateral: normal - Neck Neck: supple, normal ROM - Respiratory Respiratory: bilateral: other (on the vent) - Cardiovascular Rhythm: regular Heart Sounds: Present: S1 & S2. Absent: gallop, rub Extremities: pulses intact, No edema, normal color, Full ROM - Gastrointestinal General gastrointestinal: Present: soft, non-tender, non-distended, normal bowel sounds Rectal Exam: deferred - Genitourinary Male genitourinary: deferred - Integumentary Integumentary: clear, warm, dry - Labs CBC & Chem 7: 09/22/17 07:10 09/23/17 04:55 Labs: Abnormal lab results 09/22/17 09/23/17 09/23/17 Range/Units 21:49 01:45 04:55 POC ABG pH (7.35-7.45) POC ABG pO2 (80-105) Sodium 134 L (137-145) mmol/L Carbon Dioxide 18 L (22-30) mmol/L BUN 103 H (9-20) mg/dL Creatinine 2.6 H (0.8-1.5) mg/dL Glucose 326 H (75-100) mg/dL POC Glucose 290 H 346 H (70-105) Phosphorus 5.40 H (2.5-4.5) mg/dL Magnesium 2.60 H (1.7-2.3) mg/dL 09/23/17 09/23/17 09/23/17 Range/Units 05:11 05:46 10:13 POC ABG pH 7.333 L (7.35-7.45) POC ABG pO2 132 H (80-105) Sodium (137-145) mmol/L Carbon Dioxide (22-30) mmol/L BUN (9-20) mg/dL Creatinine (0.8-1.5) mg/dL Glucose (75-100) mg/dL POC Glucose 307 H 307 H (70-105) Phosphorus (2.5-4.5) mg/dL Magnesium (1.7-2.3) mg/dL
[2017-09-24] MEDS: NOVOLOG SUB-Q SCH ×7 (02:53→22:00)
[2017-09-24] MEDS: ATIVAN IV PRN (03:11)
[2017-09-24 04:43] LABS: Calcium 8.6 mg/dL (8.4-10.2); Chloride 86.8 mmol/L (98-107); Magnesium 2.1 mg/dL (1.7-2.3); Phosphorous 5.8 mg/dL (2.5-4.5); Potassium 4.1 mmol/L (3.6-5.0)
[2017-09-24 05:10] LABS: ISTAT Base Excess -2; ISTAT HCO3 22.2; ISTAT PCO2 33.6 (35-45); ISTAT PH 7.429 (7.35-7.45); ISTAT PO2 104 (80-105); ISTAT SO2 98; ISTAT TCO2 23
[2017-09-24 05:32] LABS: White Blood Count 5.9 K/mm3 (4.5-11.0)
[2017-09-24 05:33] LABS: Hematocrit 22.8 % (35.5-45.6); Hemoglobin TNR gm/dl (11.8-15.2); Red Blood Count TNR M/mm3 (3.65-5.03)
[2017-09-24 05:34] LABS: Mean Corpuscular HGB Conc TNR % (32-34); Mean Corpuscular Hemoglobin 34 pg (28-32); Mean Corpuscular Volume 90 fl (84-94); Mean Platelet Volume 8.8 fl (6-12); Platelet Count 195 K/mm3 (140-440); Red Cell Distribution Width 19.5 % (13.2-15.2)
[2017-09-24 06:11] LABS: Basophils % (Auto) 0.3 % (0.0-1.8); Hematocrit 23.6 % (35.5-45.6); Mean Corpuscular HGB Conc 34 % (32-34); Mean Corpuscular Hemoglobin 28 pg (28-32); Mean Corpuscular Volume 82 fl (84-94); Platelet Count 219 K/mm3 (140-440); Red Blood Count 2.89 M/mm3 (3.65-5.03); Red Cell Distribution Width 19.2 % (13.2-15.2); White Blood Count 7.3 K/mm3 (4.5-11.0)
[2017-09-24] MEDS: fentaNYL DRIP Premix 2,000 MCG/100 ML BAG IV SCH ×2 (06:23→16:44)
[2017-09-24] MEDS: DUONEB *Not for PRN Use IH SCH ×4 (09:22→20:38)
[2017-09-24] MEDS: PULMICORT IH SCH ×2 (09:23→20:38)
[2017-09-24] MEDS: PROTONIX PO SCH ×2 (10:08→22:26)
[2017-09-24] MEDS: LEVEMIR SUB-Q SCH (10:09)
--- NOTE | 2017-09-24 11:22 | Progress Note ---
Assessment and Plan - Patient Problems (1) Acute kidney injury Current Visit: Yes Status: Acute Plan to address problem: Acute kidney injury acute tubular necrosis secondary to hypotension/contrast exposure. Pre-renal azotemia contributing to RACHEL with urine Na of 10. Patient is nonoliguric. Renal function slightly better today with BUN/Cr at 105/2.2mg/ dl. Renal US shows no evidence of hydro Check complement C3-C4 to 50. Hepatitis serology negative. Continue gentle volume patient. Continue intravenous steroids. Follow-up electrolytes and renal function. Discussed with . (2) Hyponatremia Current Visit: Yes Status: Acute Plan to address problem: hyperglycemia contritbuting, cont glucose control as per primary attending. increase Na in TPN (3) DVT (deep venous thrombosis) Current Visit: Yes Status: Acute Qualifiers: Laterality: left Plan to address problem: continue anticoagulation, hematology on case (4) Elevated liver enzymes Current Visit: Yes Status: Acute Plan to address problem: monitor LFTs (5) Pulmonary embolism Current Visit: Yes Status: Acute Plan to address problem: on anticoagulation (6) Type 2 diabetes mellitus without complications Current Visit: Yes Status: Acute Plan to address problem: glucose control as per primary attending (7) Colon cancer metastasized to multiple sites Current Visit: Yes Status: Ruled-out Plan to address problem: management as per oncology (8) Anemia Current Visit: Yes Status: Acute Qualifiers: Iron deficiency anemia type: chronic blood loss Plan to address problem: monitor hb Subjective Date of service: 09/24/17 Principal diagnosis: GI bleeding, colon cancer Interval history: pt awake, alert, weak, in no acute respiratory distress Objective - Vital Signs Vital signs: Vital Signs - 12hr 09/23/17 09/23/17 09/23/17 23:21 23:30 23:41 Temperature Pulse Rate 73 68 66 Pulse Rate [ Anterior Bilateral Throughout] Pulse Rate [ Apical] Respiratory 12 25 H 25 H Rate Respiratory Rate [Anterior Bilateral Throughout] Blood Pressure 132/65 147/68 147/68 O2 Sat by Pulse 97 98 98 Oximetry 09/23/17 09/23/17 09/24/17 23:50 23:51 00:00 Temperature 97.5 F L Pulse Rate 64 66 65 Pulse Rate [ Anterior Bilateral Throughout] Pulse Rate [ Apical] Respiratory 25 H 25 H Rate Respiratory Rate [Anterior Bilateral Throughout] Blood Pressure 137/68 147/68 147/68 O2 Sat by Pulse 97 99 99 Oximetry 09/24/17 09/24/17 09/24/17 00:11 00:21 00:30 Temperature Pulse Rate 66 65 64 Pulse Rate [ Anterior Bilateral Throughout] Pulse Rate [ Apical] Respiratory 25 H 25 H 25 H Rate Respiratory Rate [Anterior Bilateral Throughout] Blood Pressure 137/68 137/68 140/68 O2 Sat by Pulse 98 99 98 Oximetry 09/24/17 09/24/17 09/24/17 00:41 00:51 00:55 Temperature Pulse Rate 83 78 Pulse Rate [ Anterior Bilateral Throughout] Pulse Rate [ 65 Apical] Respiratory 19 25 H Rate Respiratory Rate [Anterior Bilateral Throughout] Blood Pressure 140/68 137/68 O2 Sat by Pulse 97 100 Oximetry 09/24/17 09/24/17 09/24/17 01:00 01:11 01:21 Temperature Pulse Rate 72 68 92 H Pulse Rate [ Anterior Bilateral Throughout] Pulse Rate [ Apical] Respiratory 25 H 25 H 24 Rate Respiratory Rate [Anterior Bilateral Throughout] Blood Pressure 139/69 139/69 140/68 O2 Sat by Pulse 96 99 99 Oximetry 09/24/17 09/24/17 09/24/17 01:30 01:41 01:51 Temperature Pulse Rate 75 71 68 Pulse Rate [ Anterior Bilateral Throughout] Pulse Rate [ Apical] Respiratory 25 H 25 H 25 H Rate Respiratory Rate [Anterior Bilateral Throughout] Blood Pressure 134/57 134/57 134/57 O2 Sat by Pulse 95 98 99 Oximetry 09/24/17 09/24/17 09/24/17 02:00 02:11 02:21 Temperature Pulse Rate 66 67 66 Pulse Rate [ Anterior Bilateral Throughout] Pulse Rate [ Apical] Respiratory 25 H 25 H 25 H Rate Respiratory Rate [Anterior Bilateral Throughout] Blood Pressure 125/53 125/53 134/57 O2 Sat by Pulse 97 99 99 Oximetry 09/24/17 09/24/17 09/24/17 02:30 02:41 02:51 Temperature Pulse Rate 65 65 69 Pulse Rate [ Anterior Bilateral Throughout] Pulse Rate [ Apical] Respiratory 25 H 25 H 25 H Rate Respiratory Rate [Anterior Bilateral Throughout] Blood Pressure 139/60 139/60 139/60 O2 Sat by Pulse 97 99 97 Oximetry 09/24/17 09/24/17 09/24/17 03:01 03:11 03:21 Temperature Pulse Rate 71 80 72 Pulse Rate [ Anterior Bilateral Throughout] Pulse Rate [ Apical] Respiratory 25 H 25 H 25 H Rate Respiratory Rate [Anterior Bilateral Throughout] Blood Pressure 145/79 145/79 145/79 O2 Sat by Pulse 96 Oximetry 09/24/17 09/24/17 09/24/17 03:30 03:41 03:51 Temperature Pulse Rate 70 65 63 Pulse Rate [ Anterior Bilateral Throughout] Pulse Rate [ Apical] Respiratory 25 H 25 H 25 H Rate Respiratory Rate [Anterior Bilateral Throughout] Blood Pressure 141/66 141/66 141/66 O2 Sat by Pulse Oximetry 09/24/17 09/24/17 09/24/17 04:00 04:07 04:11 Temperature 98.2 F Pulse Rate 61 62 Pulse Rate [ Anterior Bilateral Throughout] Pulse Rate [ 69 Apical] Respiratory 25 H 25 H Rate Respiratory Rate [Anterior Bilateral Throughout] Blood Pressure 126/61 126/61 O2 Sat by Pulse Oximetry 09/24/17 09/24/17 09/24/17 04:21 04:30 04:41 Temperature Pulse Rate 62 61 61 Pulse Rate [ Anterior Bilateral Throughout] Pulse Rate [ Apical] Respiratory 25 H 25 H 25 H Rate Respiratory Rate [Anterior Bilateral Throughout] Blood Pressure 126/61 131/63 131/63 O2 Sat by Pulse 100 Oximetry 09/24/17 09/24/17 09/24/17 04:51 04:52 05:00 Temperature Pulse Rate 63 63 62 Pulse Rate [ Anterior Bilateral Throughout] Pulse Rate [ Apical] Respiratory 25 H 25 H Rate Respiratory Rate [Anterior Bilateral Throughout] Blood Pressure 131/63 131/63 142/66 O2 Sat by Pulse 100 Oximetry 09/24/17 09/24/17 09/24/17 05:11 05:21 05:30 Temperature Pulse Rate 62 59 L 60 Pulse Rate [ Anterior Bilateral Throughout] Pulse Rate [ Apical] Respiratory 25 H 25 H 25 H Rate Respiratory Rate [Anterior Bilateral Throughout] Blood Pressure 142/66 142/66 140/64 O2 Sat by Pulse Oximetry 09/24/17 09/24/17 09/24/17 05:41 05:51 06:00 Temperature Pulse Rate 60 60 62 Pulse Rate [ Anterior Bilateral Throughout] Pulse Rate [ Apical] Respiratory 25 H 25 H 25 H Rate Respiratory Rate [Anterior Bilateral Throughout] Blood Pressure 140/64 140/64 153/70 O2 Sat by Pulse Oximetry 09/24/17 09/24/17 09/24/17 06:11 06:21 06:30 Temperature Pulse Rate 58 L 62 61 Pulse Rate [ Anterior Bilateral Throughout] Pulse Rate [ Apical] Respiratory 25 H 25 H 25 H Rate Respiratory Rate [Anterior Bilateral Throughout] Blood Pressure 153/70 153/70 152/68 O2 Sat by Pulse Oximetry 09/24/17 09/24/17 09/24/17 06:41 06:51 07:00 Temperature Pulse Rate 58 L 58 L 62 Pulse Rate [ Anterior Bilateral Throughout] Pulse Rate [ Apical] Respiratory 25 H 25 H 25 H Rate Respiratory Rate [Anterior Bilateral Throughout] Blood Pressure 152/68 152/68 158/72 O2 Sat by Pulse Oximetry 09/24/17 09/24/17 09/24/17 07:11 07:21 07:30 Temperature Pulse Rate 58 L 56 L 54 L Pulse Rate [ Anterior Bilateral Throughout] Pulse Rate [ Apical] Respiratory 25 H 25 H 25 H Rate Respiratory Rate [Anterior Bilateral Throughout] Blood Pressure 158/72 158/72 155/67 O2 Sat by Pulse Oximetry 09/24/17 09/24/17 09/24/17 07:41 07:51 08:00 Temperature 98.4 F Pulse Rate 66 58 L 57 L Pulse Rate [ Anterior Bilateral Throughout] Pulse Rate [ Apical] Respiratory 24 25 H 25 H Rate Respiratory Rate [Anterior Bilateral Throughout] Blood Pressure 155/67 155/67 157/72 O2 Sat by Pulse Oximetry 09/24/17 09/24/17 09/24/17 08:11 08:21 08:30 Temperature Pulse Rate 61 58 L 61 Pulse Rate [ Anterior Bilateral Throughout] Pulse Rate [ Apical] Respiratory 25 H 25 H 25 H Rate Respiratory Rate [Anterior Bilateral Throughout] Blood Pressure 157/72 157/72 172/72 O2 Sat by Pulse Oximetry 09/24/17 09/24/17 09/24/17 08:41 08:51 09:00 Temperature Pulse Rate 62 62 62 Pulse Rate [ Anterior Bilateral Throughout] Pulse Rate [ Apical] Respiratory 25 H 25 H 25 H Rate Respiratory Rate [Anterior Bilateral Throughout] Blood Pressure 172/72 172/72 166/78 O2 Sat by Pulse 100 100 98 Oximetry 09/24/17 09/24/17 09/24/17 09:25 09:33 09:51 Temperature Pulse Rate 62 Pulse Rate [ 68 70 Anterior Bilateral Throughout] Pulse Rate [ Apical] Respiratory 22 Rate Respiratory 24 28 H Rate [Anterior Bilateral Throughout] Blood Pressure 144/69 O2 Sat by Pulse 100 Oximetry - General Appearance General appearance: appears stated age, chronically ill EENT: ATNC, PERRL, mucous membranes moist Neck: no JVD Respiratory: Present: Decreased Breath Sounds Cardiology: regular, S1S2 Gastrointestinal: normoactive bowel sounds Integumentary: no rash, other (+ edema ) Neurologic: no focal deficit, alert and oriented x3, strength 5/5, CN 3-12 intact Psychiatric: mood/affect appropriate, cooperative - Lab 09/24/17 06:00 09/24/17 04:00 Most recent lab results Calcium 8.6 mg/dL (8.4-10.2) 09/24/17 04:00 Phosphorus 5.80 mg/dL (2.5-4.5) H 09/24/17 04:00 Magnesium 2.10 mg/dL (1.7-2.3) 09/24/17 04:00 Urine Sodium 10 mmol/L 09/23/17 09:26
--- NOTE | 2017-09-24 12:44 | Progress Note ---
Assessment and Plan - Patient Problems (1) Deep vein blood clot of left lower extremity Current Visit: Yes Status: Acute Plan to address problem: see below. no new issues at this time. See notes. (2) Colon cancer metastasized to multiple sites Current Visit: Yes Status: Ruled-out Plan to address problem: see notes. eventually will get chemo/xrt. once stable. (3) Lung mass Current Visit: Yes Status: Acute Plan to address problem: see notes. (4) Pulmonary embolism Current Visit: Yes Status: Acute Plan to address problem: anticoags. see notes. no more anti coags. (5) DVT (deep venous thrombosis) Current Visit: Yes Status: Acute Qualifiers: Laterality: left Plan to address problem: anti coags. no more. (6) Anemia Current Visit: Yes Status: Acute Qualifiers: Iron deficiency anemia type: chronic blood loss Plan to address problem: see notes. will transfuse. will repeat labs. stable (7) Skin macule or macular rash Current Visit: Yes Status: Acute Plan to address problem: Most likely due to contrast use during procedure. Tx is steroid. Subjective Date of service: 09/24/17 Principal diagnosis: GI bleeding, colon cancer Interval history: Patient seen/examined, record reviewed, case d/w his daughter at the bed side.No procedure was done today. I have d/w DR BOYD today, and he will see patient .He is confused today, with some lethargy. Patient seen/examined, resting in bed, labs reviewed, notes reviewed. DR BOYD not available yet, so i am seeing patient today.No new issues at this time Patient seen/resting in bed, still some what confused.Notes reviewed, Lung lesion now ? for mets.I have updated DR BOYD today Patient seen/examined, labs reviewed.H/H 6.6 , I have spoken to his nurse, and will draw from a non heparin line Stat. Patient seen, resting in bed, labs reviewed. I have d/w the nurse, and will order PRBC. Patient seen/examined, resting in bed, labs reviewed, case d/w patient and family at the bed side. He is s/p 2uPRBC transfusion.He is scheduled for IVC Filter placement, after which he can be transitioned to oral anticoagulation. eloquis. he should be able to transfer to chair, and back to bed once Heparin in therapeutic range. Patient seen/examined, labs reviewed, case d/w patient, and family.IVC filter not placed, so patient restarted on his Heparin.once placed, then patient can be ab;e to move around. Patient seen/examined, ,resting in bed, family at the bed side, IVC filter placement was not done. for some unknown reason..I have discussed with DR Mirza this morning that once Filter placed, he may be d/c home to start chemo. Patient seen/examined, case d/w patient / at the bed side.I will speak with IR about Filter placement, so patient can proceed with chemo. Patient seen/examined, resting in bed, record reviewed, No IVC filter yet. Patient seen/examined, case d/w him, and family. I had spoken to DR LOJA, and the conclusion was that patient will be switched to LMWH tx dose for probably indefinite, but if any surgical procedure is intended, or there is another thrombotic event, then he will get an IVC filter.I will d/w DR Mirza tomorrow, and if he can be d/c soon so he can get ready for chemo. Patient seen/examined, resting in bed, appears slightly lethargic, at the bed side, case d/w both, and with the primary team, Dr Lewis. Patient having GI bleed actively, heparin on hold now for 2days. patient also having projectile emesis bile like. I think that due to this new development, Patient can not be on anticoagulation,and he still remains pro thrombotic. This will make him a candidate for an alternative measure such as an IVC filter..Any major procedure such as GI scope can can even result in thrombotic event.He will need abdominal imaging also to r/o obstruction. Patient seen/examined, resting in bed, notes reviewed, patient asleep.I have reviewed notes , and glad that DR Longoria has concord with recommendation for IVC Filter.. patient seen/examined, notes reviewed. IVC filter placement completed, as per patient, who is more alert at this time. patient seen/examined , resting in bed, vss, afebrile, some what lethargic, family at the bed side.Skin of the extremity, with diffuse purpura., started post surgery.,almost like vasculitis.may need steroid trial., because this may infact be due to contrast ,which may also be delayed. Patient seen/examined, in the ICU center where he was transfered due to resp distress.I had suggested steroid, since this is looking more like contrast induced, , he now has acute renal failure in part due to same reason of contrast , and perhaps due to hypotension. I have discussed with DR Poe, and he will go ahead and order some steroid, and renal consult, and some insulin coverage. Patient seen/examined, resting in bed, on vent support, at the bed side, case d/w her. I have also reviewed others notes.He will need a new lab draw for tomorrow, and will follow you. Patent seen/examined, resting in bed, labs reviewed, case d/w his at the bed side. Objective - Constitutional Vitals: Vital Signs - 12hr 09/24/17 09/24/17 09/24/17 00:41 00:51 00:55 Temperature Pulse Rate 83 78 Pulse Rate [ Anterior Bilateral Throughout] Pulse Rate [ 65 Apical] Respiratory 19 25 H Rate Respiratory Rate [Abdomen] Respiratory Rate [Anterior Bilateral Throughout] Blood Pressure 140/68 137/68 O2 Sat by Pulse 97 100 Oximetry 09/24/17 09/24/17 09/24/17 01:00 01:11 01:21 Temperature Pulse Rate 72 68 92 H Pulse Rate [ Anterior Bilateral Throughout] Pulse Rate [ Apical] Respiratory 25 H 25 H 24 Rate Respiratory Rate [Abdomen] Respiratory Rate [Anterior Bilateral Throughout] Blood Pressure 139/69 139/69 140/68 O2 Sat by Pulse 96 99 99 Oximetry 09/24/17 09/24/17 09/24/17 01:30 01:41 01:51 Temperature Pulse Rate 75 71 68 Pulse Rate [ Anterior Bilateral Throughout] Pulse Rate [ Apical] Respiratory 25 H 25 H 25 H Rate Respiratory Rate [Abdomen] Respiratory Rate [Anterior Bilateral Throughout] Blood Pressure 134/57 134/57 134/57 O2 Sat by Pulse 95 98 99 Oximetry 09/24/17 09/24/17 09/24/17 02:00 02:11 02:21 Temperature Pulse Rate 66 67 66 Pulse Rate [ Anterior Bilateral Throughout] Pulse Rate [ Apical] Respiratory 25 H 25 H 25 H Rate Respiratory Rate [Abdomen] Respiratory Rate [Anterior Bilateral Throughout] Blood Pressure 125/53 125/53 134/57 O2 Sat by Pulse 97 99 99 Oximetry 09/24/17 09/24/17 09/24/17 02:30 02:41 02:51 Temperature Pulse Rate 65 65 69 Pulse Rate [ Anterior Bilateral Throughout] Pulse Rate [ Apical] Respiratory 25 H 25 H 25 H Rate Respiratory Rate [Abdomen] Respiratory Rate [Anterior Bilateral Throughout] Blood Pressure 139/60 139/60 139/60 O2 Sat by Pulse 97 99 97 Oximetry 09/24/17 09/24/17 09/24/17 03:01 03:11 03:21 Temperature Pulse Rate 71 80 72 Pulse Rate [ Anterior Bilateral Throughout] Pulse Rate [ Apical] Respiratory 25 H 25 H 25 H Rate Respiratory Rate [Abdomen] Respiratory Rate [Anterior Bilateral Throughout] Blood Pressure 145/79 145/79 145/79 O2 Sat by Pulse 96 Oximetry 09/24/17 09/24/17 09/24/17 03:30 03:41 03:51 Temperature Pulse Rate 70 65 63 Pulse Rate [ Anterior Bilateral Throughout] Pulse Rate [ Apical] Respiratory 25 H 25 H 25 H Rate Respiratory Rate [Abdomen] Respiratory Rate [Anterior Bilateral Throughout] Blood Pressure 141/66 141/66 141/66 O2 Sat by Pulse Oximetry 09/24/17 09/24/17 09/24/17 04:00 04:07 04:11 Temperature 98.2 F Pulse Rate 61 62 Pulse Rate [ Anterior Bilateral Throughout] Pulse Rate [ 69 Apical] Respiratory 25 H 25 H Rate Respiratory Rate [Abdomen] Respiratory Rate [Anterior Bilateral Throughout] Blood Pressure 126/61 126/61 O2 Sat by Pulse Oximetry 09/24/17 09/24/17 09/24/17 04:21 04:30 04:41 Temperature Pulse Rate 62 61 61 Pulse Rate [ Anterior Bilateral Throughout] Pulse Rate [ Apical] Respiratory 25 H 25 H 25 H Rate Respiratory Rate [Abdomen] Respiratory Rate [Anterior Bilateral Throughout] Blood Pressure 126/61 131/63 131/63 O2 Sat by Pulse 100 Oximetry 09/24/17 09/24/17 09/24/17 04:51 04:52 05:00 Temperature Pulse Rate 63 63 62 Pulse Rate [ Anterior Bilateral Throughout] Pulse Rate [ Apical] Respiratory 25 H 25 H Rate Respiratory Rate [Abdomen] Respiratory Rate [Anterior Bilateral Throughout] Blood Pressure 131/63 131/63 142/66 O2 Sat by Pulse 100 Oximetry 09/24/17 09/24/17 09/24/17 05:11 05:21 05:30 Temperature Pulse Rate 62 59 L 60 Pulse Rate [ Anterior Bilateral Throughout] Pulse Rate [ Apical] Respiratory 25 H 25 H 25 H Rate Respiratory Rate [Abdomen] Respiratory Rate [Anterior Bilateral Throughout] Blood Pressure 142/66 142/66 140/64 O2 Sat by Pulse Oximetry 09/24/17 09/24/17 09/24/17 05:41 05:51 06:00 Temperature Pulse Rate 60 60 62 Pulse Rate [ Anterior Bilateral Throughout] Pulse Rate [ Apical] Respiratory 25 H 25 H 25 H Rate Respiratory Rate [Abdomen] Respiratory Rate [Anterior Bilateral Throughout] Blood Pressure 140/64 140/64 153/70 O2 Sat by Pulse Oximetry 09/24/17 09/24/17 09/24/17 06:11 06:21 06:30 Temperature Pulse Rate 58 L 62 61 Pulse Rate [ Anterior Bilateral Throughout] Pulse Rate [ Apical] Respiratory 25 H 25 H 25 H Rate Respiratory Rate [Abdomen] Respiratory Rate [Anterior Bilateral Throughout] Blood Pressure 153/70 153/70 152/68 O2 Sat by Pulse Oximetry 09/24/17 09/24/17 09/24/17 06:41 06:51 07:00 Temperature Pulse Rate 58 L 58 L 62 Pulse Rate [ Anterior Bilateral Throughout] Pulse Rate [ Apical] Respiratory 25 H 25 H 25 H Rate Respiratory Rate [Abdomen] Respiratory Rate [Anterior Bilateral Throughout] Blood Pressure 152/68 152/68 158/72 O2 Sat by Pulse Oximetry 09/24/17 09/24/17 09/24/17 07:11 07:21 07:30 Temperature Pulse Rate 58 L 56 L 54 L Pulse Rate [ Anterior Bilateral Throughout] Pulse Rate [ Apical] Respiratory 25 H 25 H 25 H Rate Respiratory Rate [Abdomen] Respiratory Rate [Anterior Bilateral Throughout] Blood Pressure 158/72 158/72 155/67 O2 Sat by Pulse Oximetry 09/24/17 09/24/17 09/24/17 07:41 07:51 08:00 Temperature 98.4 F Pulse Rate 66 58 L 57 L Pulse Rate [ Anterior Bilateral Throughout] Pulse Rate [ Apical] Respiratory 24 25 H 25 H Rate Respiratory Rate [Abdomen] Respiratory Rate [Anterior Bilateral Throughout] Blood Pressure 155/67 155/67 157/72 O2 Sat by Pulse Oximetry 09/24/17 09/24/17 09/24/17 08:11 08:21 08:30 Temperature Pulse Rate 61 58 L 61 Pulse Rate [ Anterior Bilateral Throughout] Pulse Rate [ Apical] Respiratory 25 H 25 H 25 H Rate Respiratory Rate [Abdomen] Respiratory Rate [Anterior Bilateral Throughout] Blood Pressure 157/72 157/72 172/72 O2 Sat by Pulse Oximetry 09/24/17 09/24/17 09/24/17 08:41 08:51 09:00 Temperature Pulse Rate 62 62 62 Pulse Rate [ Anterior Bilateral Throughout] Pulse Rate [ Apical] Respiratory 25 H 25 H 25 H Rate Respiratory Rate [Abdomen] Respiratory Rate [Anterior Bilateral Throughout] Blood Pressure 172/72 172/72 166/78 O2 Sat by Pulse 100 100 98 Oximetry 09/24/17 09/24/17 09/24/17 09:11 09:21 09:25 Temperature Pulse Rate 62 59 L Pulse Rate [ 68 Anterior Bilateral Throughout] Pulse Rate [ Apical] Respiratory 25 H 25 H Rate Respiratory Rate [Abdomen] Respiratory 24 Rate [Anterior Bilateral Throughout] Blood Pressure 166/78 166/78 O2 Sat by Pulse 100 100 Oximetry 09/24/17 09/24/17 09/24/17 09:31 09:33 09:41 Temperature Pulse Rate 81 62 71 Pulse Rate [ Anterior Bilateral Throughout] Pulse Rate [ Apical] Respiratory 26 H 22 13 Rate Respiratory Rate [Abdomen] Respiratory Rate [Anterior Bilateral Throughout] Blood Pressure 144/69 144/69 144/69 O2 Sat by Pulse 100 100 100 Oximetry 09/24/17 09/24/17 09/24/17 09:51 10:00 10:11 Temperature Pulse Rate 68 69 70 Pulse Rate [ 70 Anterior Bilateral Throughout] Pulse Rate [ Apical] Respiratory 11 L 11 L 15 Rate Respiratory 25 H Rate [Abdomen] Respiratory 28 H Rate [Anterior Bilateral Throughout] Blood Pressure 144/69 159/63 159/63 O2 Sat by Pulse 100 99 99 Oximetry 09/24/17 09/24/17 09/24/17 10:21 10:30 10:41 Temperature Pulse Rate 69 71 69 Pulse Rate [ Anterior Bilateral Throughout] Pulse Rate [ Apical] Respiratory 13 15 13 Rate Respiratory Rate [Abdomen] Respiratory Rate [Anterior Bilateral Throughout] Blood Pressure 159/63 167/65 167/65 O2 Sat by Pulse 99 97 99 Oximetry 09/24/17 09/24/17 09/24/17 10:51 11:01 11:11 Temperature Pulse Rate 69 88 91 H Pulse Rate [ Anterior Bilateral Throughout] Pulse Rate [ Apical] Respiratory 12 23 20 Rate Respiratory Rate [Abdomen] Respiratory Rate [Anterior Bilateral Throughout] Blood Pressure 167/65 167/65 167/65 O2 Sat by Pulse 99 Oximetry 09/24/17 09/24/17 09/24/17 11:21 11:30 11:41 Temperature Pulse Rate 86 79 74 Pulse Rate [ Anterior Bilateral Throughout] Pulse Rate [ Apical] Respiratory 13 16 14 Rate Respiratory Rate [Abdomen] Respiratory Rate [Anterior Bilateral Throughout] Blood Pressure 167/65 156/67 156/67 O2 Sat by Pulse Oximetry 09/24/17 09/24/17 09/24/17 11:51 12:00 12:11 Temperature Pulse Rate 71 70 75 Pulse Rate [ Anterior Bilateral Throughout] Pulse Rate [ Apical] Respiratory 14 13 15 Rate Respiratory Rate [Abdomen] Respiratory Rate [Anterior Bilateral Throughout] Blood Pressure 156/67 141/67 156/67 O2 Sat by Pulse Oximetry 09/24/17 12:21 Temperature Pulse Rate 82 Pulse Rate [ Anterior Bilateral Throughout] Pulse Rate [ Apical] Respiratory 15 Rate Respiratory Rate [Abdomen] Respiratory Rate [Anterior Bilateral Throughout] Blood Pressure 156/67 O2 Sat by Pulse Oximetry General appearance: Present: mild distress, well-nourished - EENT Eyes: PERRL, EOM intact ENT: hearing intact, clear oral mucosa Ears: bilateral: normal - Neck Neck: supple, normal ROM - Respiratory Respiratory effort: normal Respiratory: bilateral: CTA - Cardiovascular Rhythm: regular Heart Sounds: Present: S1 & S2. Absent: gallop, rub Extremities: pulses intact, No edema, normal color, Full ROM - Gastrointestinal General gastrointestinal: Present: soft, non-tender, non-distended, normal bowel sounds - Genitourinary Male genitourinary: deferred - Integumentary Integumentary: clear, warm, dry - Musculoskeletal Musculoskeletal: 1, strength equal bilaterally - Neurologic Neurologic: moves all extremities - Labs CBC & Chem 7: 09/24/17 06:00 09/24/17 04:00 Labs: Abnormal lab results 09/23/17 09/23/17 09/23/17 Range/Units 14:34 17:25 22:40 RBC (3.65-5.03) M/mm3 Hgb (11.8-15.2) gm/dl Hct (35.5-45.6) % MCV (84-94) fl MCH (28-32) pg RDW (13.2-15.2) % Lymph % (Auto) (13.4-35.0) % Lymph # (1.2-5.4) K/mm3 Seg Neutrophils % (40.0-70.0) % POC ABG pCO2 (35-45) Sodium (137-145) mmol/L Chloride (98-107) mmol/L Carbon Dioxide (22-30) mmol/L BUN (9-20) mg/dL Creatinine (0.8-1.5) mg/dL Glucose (75-100) mg/dL POC Glucose 307 H 267 H 316 H (70-105) Phosphorus (2.5-4.5) mg/dL 09/24/17 09/24/17 09/24/17 Range/Units 03:00 04:00 04:00 RBC (3.65-5.03) M/mm3 Hgb (11.8-15.2) gm/dl Hct 22.8 L (35.5-45.6) % MCV (84-94) fl MCH 34 H (28-32) pg RDW 19.5 H (13.2-15.2) % Lymph % (Auto) (13.4-35.0) % Lymph # (1.2-5.4) K/mm3 Seg Neutrophils % (40.0-70.0) % POC ABG pCO2 (35-45) Sodium 132 L (137-145) mmol/L Chloride 86.8 L (98-107) mmol/L Carbon Dioxide 17 L (22-30) mmol/L BUN 105 H (9-20) mg/dL Creatinine 2.2 H (0.8-1.5) mg/dL Glucose 299 H (75-100) mg/dL POC Glucose 287 H (70-105) Phosphorus 5.80 H (2.5-4.5) mg/dL 09/24/17 09/24/17 09/24/17 Range/Units 05:07 06:00 10:22 RBC 2.89 L (3.65-5.03) M/mm3 Hgb 8.0 L (11.8-15.2) gm/dl Hct 23.6 L (35.5-45.6) % MCV 82 L (84-94) fl MCH (28-32) pg RDW 19.2 H (13.2-15.2) % Lymph % (Auto) 10.9 L (13.4-35.0) % Lymph # 0.8 L (1.2-5.4) K/mm3 Seg Neutrophils % 85.4 H (40.0-70.0) % POC ABG pCO2 33.6 L (35-45) Sodium (137-145) mmol/L Chloride (98-107) mmol/L Carbon Dioxide (22-30) mmol/L BUN (9-20) mg/dL Creatinine (0.8-1.5) mg/dL Glucose (75-100) mg/dL POC Glucose 345 H (70-105) Phosphorus (2.5-4.5) mg/dL
--- NOTE | 2017-09-24 12:52 | Progress Note ---
Assessment and Plan - Patient Problems (1) Colon cancer metastasized to multiple sites Current Visit: Yes Status: Ruled-out Plan to address problem: No definite evidence of multiple metastasis to lung or liver at this point. Repeat CT of the chest was reviewed extensively with Dr. Bradford and he is not convinced at this time that the lesion in the lung is a metastatic lesion. 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 (2) Altered mental status Current Visit: Yes Status: Resolved Qualifiers: Altered mental status type: transient alteration of awareness Qualified Code(s): R40.4 - Transient alteration of awareness Plan to address problem: Patient now lethargic and poorly responsive with change in mental status and respiration. We'll transfer patient to the intensive care unit and may require intubation and ventilator supports discussed with patient's family and with the patient will increase to to proceed with plan for respiratory support keep on BiPAP for now obtain ABG pulmonary consults (3) Fever Current Visit: Yes Status: Resolved Qualifiers: Fever type: unspecified Qualified Code(s): R50.9 - Fever, unspecified Plan to address problem: Fever has now resolved afebrile the past few days (4) Hypertension Current Visit: Yes Status: Acute Qualifiers: Hypertension type: essential hypertension Qualified Code(s): I10 - Essential (primary) hypertension Plan to address problem: Blood pressures is marginal with hold all blood pressure medication at this point (5) Type 2 diabetes mellitus without complications Current Visit: Yes Status: Acute Plan to address problem: Patient reported with hyperglycemia will adjust current coverage with long- acting insulin and sliding scale coverage (6) Deep vein blood clot of left lower extremity Current Visit: Yes Status: Acute Plan to address problem: Patient now status post placement of IVC filter due to new onset of lower GI bleed ,anticoagulation now on hold (7) Anemia Current Visit: Yes Status: Acute Qualifiers: Iron deficiency anemia type: chronic blood loss Plan to address problem: Hemoglobin noted is fairly stable posttransfusion with 2 units of Cells continue to monitor hemoglobin (8) Abdominal pain Current Visit: Yes Status: Acute Qualifiers: Abdominal location: upper abdomen, unspecified Qualified Code(s): R10.10 - Upper abdominal pain, unspecified Plan to address problem: Nausea vomiting subsided . We need to start on tube feeding after patient is intubated we'll continue with TPN at this point (9) Lower GI bleed Current Visit: Yes Status: Acute Plan to address problem: GI evaluation reviewed ,patient had bleeding scan which was negative and no further active lower GI bleeding reported stool reported to be brown but no active bleeding (10) Petechial rash Current Visit: Yes Status: Acute Plan to address problem: Possible localized reaction to local anaesthtic agent will observe closely and watch for any systemic component to this localized rash will also recheck platelet count as well as CBC (11) Abnormal liver function test Current Visit: Yes Status: Acute Plan to address problem: Abnormal liver function tests observed . Slight improvement noted since yesterday in transaminases level will continue to monitor. (12) Respiratory failure requiring intubation Current Visit: Yes Status: Acute Plan to address problem: Respiratory failure with hypoxia patient now on full ventilator support due to worsening respiratory status and hypoxia . Discussed with patient's and his three brothers by conference call on the telephone ,explained new changes in condition and plan of care full support (13) Acute kidney injury Current Visit: Yes Status: Acute Subjective Date of service: 09/24/17 Principal diagnosis: GI bleeding, colon cancer Interval history: Patient is more alert with intermittent agitation requiring restraints. No fever reported by nursing staff Objective - Exam Narrative Exam: GENERAL: On ventilator orally intubated sedated HEENT: Mucous membrane is moist, pharynx is clear. NECK: [No JVD, no thyroid enlargement and no lymphadenopathy.] CHEST/LUNGS: Reduced air exchange bibasally, a few rhonchi no wheezes no rales [No chest wall tenderness, percussion is normal, symmetrical chest wall.] HEART/CARDIOVASCULAR: Tachycardia. Second heart sounds only there is no audible murmur.] ABDOMEN: [Abdomen is soft, nondistended, multiple healed laparotomy scars no guarding, no rebound tenderness, , active bowel sounds.] SKIN: Petechia erythematous rash in the antecubital fossa extending to the upper arm, petechia also now extending into the thigh bilaterally NEURO: Lethargic responds only to name call and a few questions. EXTREMITIES: Pedal edema left lower extremity up to below the knee, no edema on the right, good peripheral pulses bilaterally no finger or toe clubbing. - Constitutional Vitals: Vital Signs - 12hr 09/24/17 09/24/17 09/24/17 00:55 01:00 01:11 Temperature Pulse Rate 72 68 Pulse Rate [ Anterior Bilateral Throughout] Pulse Rate [ 65 Apical] Respiratory 25 H 25 H Rate Respiratory Rate [Abdomen] Respiratory Rate [Anterior Bilateral Throughout] Blood Pressure 139/69 139/69 O2 Sat by Pulse 96 99 Oximetry 09/24/17 09/24/17 09/24/17 01:21 01:30 01:41 Temperature Pulse Rate 92 H 75 71 Pulse Rate [ Anterior Bilateral Throughout] Pulse Rate [ Apical] Respiratory 24 25 H 25 H Rate Respiratory Rate [Abdomen] Respiratory Rate [Anterior Bilateral Throughout] Blood Pressure 140/68 134/57 134/57 O2 Sat by Pulse 99 95 98 Oximetry 09/24/17 09/24/17 09/24/17 01:51 02:00 02:11 Temperature Pulse Rate 68 66 67 Pulse Rate [ Anterior Bilateral Throughout] Pulse Rate [ Apical] Respiratory 25 H 25 H 25 H Rate Respiratory Rate [Abdomen] Respiratory Rate [Anterior Bilateral Throughout] Blood Pressure 134/57 125/53 125/53 O2 Sat by Pulse 99 97 99 Oximetry 09/24/17 09/24/17 09/24/17 02:21 02:30 02:41 Temperature Pulse Rate 66 65 65 Pulse Rate [ Anterior Bilateral Throughout] Pulse Rate [ Apical] Respiratory 25 H 25 H 25 H Rate Respiratory Rate [Abdomen] Respiratory Rate [Anterior Bilateral Throughout] Blood Pressure 134/57 139/60 139/60 O2 Sat by Pulse 99 97 99 Oximetry 09/24/17 09/24/17 09/24/17 02:51 03:01 03:11 Temperature Pulse Rate 69 71 80 Pulse Rate [ Anterior Bilateral Throughout] Pulse Rate [ Apical] Respiratory 25 H 25 H 25 H Rate Respiratory Rate [Abdomen] Respiratory Rate [Anterior Bilateral Throughout] Blood Pressure 139/60 145/79 145/79 O2 Sat by Pulse 97 96 Oximetry 09/24/17 09/24/17 09/24/17 03:21 03:30 03:41 Temperature Pulse Rate 72 70 65 Pulse Rate [ Anterior Bilateral Throughout] Pulse Rate [ Apical] Respiratory 25 H 25 H 25 H Rate Respiratory Rate [Abdomen] Respiratory Rate [Anterior Bilateral Throughout] Blood Pressure 145/79 141/66 141/66 O2 Sat by Pulse Oximetry 09/24/17 09/24/17 09/24/17 03:51 04:00 04:07 Temperature 98.2 F Pulse Rate 63 61 Pulse Rate [ Anterior Bilateral Throughout] Pulse Rate [ 69 Apical] Respiratory 25 H 25 H Rate Respiratory Rate [Abdomen] Respiratory Rate [Anterior Bilateral Throughout] Blood Pressure 141/66 126/61 O2 Sat by Pulse Oximetry 09/24/17 09/24/17 09/24/17 04:11 04:21 04:30 Temperature Pulse Rate 62 62 61 Pulse Rate [ Anterior Bilateral Throughout] Pulse Rate [ Apical] Respiratory 25 H 25 H 25 H Rate Respiratory Rate [Abdomen] Respiratory Rate [Anterior Bilateral Throughout] Blood Pressure 126/61 126/61 131/63 O2 Sat by Pulse Oximetry 09/24/17 09/24/17 09/24/17 04:41 04:51 04:52 Temperature Pulse Rate 61 63 63 Pulse Rate [ Anterior Bilateral Throughout] Pulse Rate [ Apical] Respiratory 25 H 25 H Rate Respiratory Rate [Abdomen] Respiratory Rate [Anterior Bilateral Throughout] Blood Pressure 131/63 131/63 131/63 O2 Sat by Pulse 100 100 Oximetry 09/24/17 09/24/17 09/24/17 05:00 05:11 05:21 Temperature Pulse Rate 62 62 59 L Pulse Rate [ Anterior Bilateral Throughout] Pulse Rate [ Apical] Respiratory 25 H 25 H 25 H Rate Respiratory Rate [Abdomen] Respiratory Rate [Anterior Bilateral Throughout] Blood Pressure 142/66 142/66 142/66 O2 Sat by Pulse Oximetry 09/24/17 09/24/17 09/24/17 05:30 05:41 05:51 Temperature Pulse Rate 60 60 60 Pulse Rate [ Anterior Bilateral Throughout] Pulse Rate [ Apical] Respiratory 25 H 25 H 25 H Rate Respiratory Rate [Abdomen] Respiratory Rate [Anterior Bilateral Throughout] Blood Pressure 140/64 140/64 140/64 O2 Sat by Pulse Oximetry 09/24/17 09/24/17 09/24/17 06:00 06:11 06:21 Temperature Pulse Rate 62 58 L 62 Pulse Rate [ Anterior Bilateral Throughout] Pulse Rate [ Apical] Respiratory 25 H 25 H 25 H Rate Respiratory Rate [Abdomen] Respiratory Rate [Anterior Bilateral Throughout] Blood Pressure 153/70 153/70 153/70 O2 Sat by Pulse Oximetry 09/24/17 09/24/17 09/24/17 06:30 06:41 06:51 Temperature Pulse Rate 61 58 L 58 L Pulse Rate [ Anterior Bilateral Throughout] Pulse Rate [ Apical] Respiratory 25 H 25 H 25 H Rate Respiratory Rate [Abdomen] Respiratory Rate [Anterior Bilateral Throughout] Blood Pressure 152/68 152/68 152/68 O2 Sat by Pulse Oximetry 09/24/17 09/24/17 09/24/17 07:00 07:11 07:21 Temperature Pulse Rate 62 58 L 56 L Pulse Rate [ Anterior Bilateral Throughout] Pulse Rate [ Apical] Respiratory 25 H 25 H 25 H Rate Respiratory Rate [Abdomen] Respiratory Rate [Anterior Bilateral Throughout] Blood Pressure 158/72 158/72 158/72 O2 Sat by Pulse Oximetry 09/24/17 09/24/17 09/24/17 07:30 07:41 07:51 Temperature Pulse Rate 54 L 66 58 L Pulse Rate [ Anterior Bilateral Throughout] Pulse Rate [ Apical] Respiratory 25 H 24 25 H Rate Respiratory Rate [Abdomen] Respiratory Rate [Anterior Bilateral Throughout] Blood Pressure 155/67 155/67 155/67 O2 Sat by Pulse Oximetry 09/24/17 09/24/17 09/24/17 08:00 08:11 08:21 Temperature 98.4 F Pulse Rate 57 L 61 58 L Pulse Rate [ Anterior Bilateral Throughout] Pulse Rate [ Apical] Respiratory 25 H 25 H 25 H Rate Respiratory Rate [Abdomen] Respiratory Rate [Anterior Bilateral Throughout] Blood Pressure 157/72 157/72 157/72 O2 Sat by Pulse Oximetry 09/24/17 09/24/17 09/24/17 08:30 08:41 08:51 Temperature Pulse Rate 61 62 62 Pulse Rate [ Anterior Bilateral Throughout] Pulse Rate [ Apical] Respiratory 25 H 25 H 25 H Rate Respiratory Rate [Abdomen] Respiratory Rate [Anterior Bilateral Throughout] Blood Pressure 172/72 172/72 172/72 O2 Sat by Pulse 100 100 Oximetry 09/24/17 09/24/17 09/24/17 09:00 09:11 09:21 Temperature Pulse Rate 62 62 59 L Pulse Rate [ Anterior Bilateral Throughout] Pulse Rate [ Apical] Respiratory 25 H 25 H 25 H Rate Respiratory Rate [Abdomen] Respiratory Rate [Anterior Bilateral Throughout] Blood Pressure 166/78 166/78 166/78 O2 Sat by Pulse 98 100 100 Oximetry 09/24/17 09/24/17 09/24/17 09:25 09:31 09:33 Temperature Pulse Rate 81 62 Pulse Rate [ 68 Anterior Bilateral Throughout] Pulse Rate [ Apical] Respiratory 26 H 22 Rate Respiratory Rate [Abdomen] Respiratory 24 Rate [Anterior Bilateral Throughout] Blood Pressure 144/69 144/69 O2 Sat by Pulse 100 100 Oximetry 09/24/17 09/24/1717 09:41 09:51 10:00 Temperature Pulse Rate 71 68 69 Pulse Rate [ 70 Anterior Bilateral Throughout] Pulse Rate [ Apical] Respiratory 13 11 L 11 L Rate Respiratory 25 H Rate [Abdomen] Respiratory 28 H Rate [Anterior Bilateral Throughout] Blood Pressure 144/69 144/69 159/63 O2 Sat by Pulse 100 100 99 Oximetry 09/24/17 09/24/17 09/24/17 10:11 10:21 10:30 Temperature Pulse Rate 70 69 71 Pulse Rate [ Anterior Bilateral Throughout] Pulse Rate [ Apical] Respiratory 15 13 15 Rate Respiratory Rate [Abdomen] Respiratory Rate [Anterior Bilateral Throughout] Blood Pressure 159/63 159/63 167/65 O2 Sat by Pulse 99 99 97 Oximetry 09/24/17 09/24/17 09/24/17 10:41 10:51 11:01 Temperature Pulse Rate 69 69 88 Pulse Rate [ Anterior Bilateral Throughout] Pulse Rate [ Apical] Respiratory 13 12 23 Rate Respiratory Rate [Abdomen] Respiratory Rate [Anterior Bilateral Throughout] Blood Pressure 167/65 167/65 167/65 O2 Sat by Pulse 99 99 Oximetry 09/24/17 09/24/17 09/24/17 11:11 11:21 11:30 Temperature Pulse Rate 91 H 86 79 Pulse Rate [ Anterior Bilateral Throughout] Pulse Rate [ Apical] Respiratory 20 13 16 Rate Respiratory Rate [Abdomen] Respiratory Rate [Anterior Bilateral Throughout] Blood Pressure 167/65 167/65 156/67 O2 Sat by Pulse Oximetry 09/24/17 09/24/17 09/24/17 11:41 11:51 12:00 Temperature Pulse Rate 74 71 70 Pulse Rate [ Anterior Bilateral Throughout] Pulse Rate [ Apical] Respiratory 14 14 13 Rate Respiratory Rate [Abdomen] Respiratory Rate [Anterior Bilateral Throughout] Blood Pressure 156/67 156/67 141/67 O2 Sat by Pulse Oximetry 09/24/17 09/24/17 12:11 12:21 Temperature Pulse Rate 75 82 Pulse Rate [ Anterior Bilateral Throughout] Pulse Rate [ Apical] Respiratory 15 15 Rate Respiratory Rate [Abdomen] Respiratory Rate [Anterior Bilateral Throughout] Blood Pressure 156/67 156/67 O2 Sat by Pulse Oximetry - Labs CBC & Chem 7: 09/24/17 06:00 09/24/17 04:00 Labs: Abnormal lab results 09/23/17 09/23/17 09/23/17 Range/Units 14:34 17:25 22:40 RBC (3.65-5.03) M/mm3 Hgb (11.8-15.2) gm/dl Hct (35.5-45.6) % MCV (84-94) fl MCH (28-32) pg RDW (13.2-15.2) % Lymph % (Auto) (13.4-35.0) % Lymph # (1.2-5.4) K/mm3 Seg Neutrophils % (40.0-70.0) % POC ABG pCO2 (35-45) Sodium (137-145) mmol/L Chloride (98-107) mmol/L Carbon Dioxide (22-30) mmol/L BUN (9-20) mg/dL Creatinine (0.8-1.5) mg/dL Glucose (75-100) mg/dL POC Glucose 307 H 267 H 316 H (70-105) Phosphorus (2.5-4.5) mg/dL 09/24/17 09/24/17 09/24/17 Range/Units 03:00 04:00 04:00 RBC (3.65-5.03) M/mm3 Hgb (11.8-15.2) gm/dl Hct 22.8 L (35.5-45.6) % MCV (84-94) fl MCH 34 H (28-32) pg RDW 19.5 H (13.2-15.2) % Lymph % (Auto) (13.4-35.0) % Lymph # (1.2-5.4) K/mm3 Seg Neutrophils % (40.0-70.0) % POC ABG pCO2 (35-45) Sodium 132 L (137-145) mmol/L Chloride 86.8 L (98-107) mmol/L Carbon Dioxide 17 L (22-30) mmol/L BUN 105 H (9-20) mg/dL Creatinine 2.2 H (0.8-1.5) mg/dL Glucose 299 H (75-100) mg/dL POC Glucose 287 H (70-105) Phosphorus 5.80 H (2.5-4.5) mg/dL 09/24/17 09/24/17 09/24/17 Range/Units 05:07 06:00 10:22 RBC 2.89 L (3.65-5.03) M/mm3 Hgb 8.0 L (11.8-15.2) gm/dl Hct 23.6 L (35.5-45.6) % MCV 82 L (84-94) fl MCH (28-32) pg RDW 19.2 H (13.2-15.2) % Lymph % (Auto) 10.9 L (13.4-35.0) % Lymph # 0.8 L (1.2-5.4) K/mm3 Seg Neutrophils % 85.4 H (40.0-70.0) % POC ABG pCO2 33.6 L (35-45) Sodium (137-145) mmol/L Chloride (98-107) mmol/L Carbon Dioxide (22-30) mmol/L BUN (9-20) mg/dL Creatinine (0.8-1.5) mg/dL Glucose (75-100) mg/dL POC Glucose 345 H (70-105) Phosphorus (2.5-4.5) mg/dL
--- NOTE | 2017-09-24 13:26 | XRay Report ---
AP CHEST : 08/27/17 06:28:00 CLINICAL: Chest pain. COMPARISON:09/22/17 FINDINGS: The endotracheal tube is in satisfactory position. A right PICC line tip remains in the distal SVC and is unchanged. Stable cardiomegaly. Central vascular congestion with indistinct of the pulmonary vessels. Increased bilateral perihilar and bibasal lung opacities. The lung opacities are more confluent. A feeding tube tip is below the diaphragm and not imaged. No pneumothorax. IMPRESSION: CHF with worsened multilobar pulmonary edema.
[2017-09-24 14:16] LABS: ISTAT Base Excess -3; ISTAT HCO3 22.8; ISTAT PCO2 43.2 (35-45); ISTAT PO2 93 (80-105); ISTAT SO2 97; ISTAT TCO2 24
--- NOTE | 2017-09-24 14:25 | Progress Note ---
Assessment and Plan Acute Hypoxemic Respiratory Failure Acute VTE Sepsis Syndrome H/O Colon CA (? recurrent) Acute GI Bleed RACHEL Contrast nephropathy Anemia - added seroquel re: agitation / delirium - continue to avoid benzodiazepines - wean oxygen for Sats > 92% - s/p IVC filter - address VAP bundle daily - continue bronchodilators and pulmonary hygeine per RT - continue empiric AB's - continue GI prophylaxis - steroid taper at this point (improving azotemia) - enteral nutrition as tolerated (order placed today) - daily SAT/SBT's - continue aspiration precautions - continue other care per attending / other consultants ...care plan discussed with at bedside ....re-evaluate in am & prn ...35' CCT Subjective Date of service: 09/24/17 Principal diagnosis: Acute VTE (P.E. & DVT's); Acute Hypoxemic Resp Failure: Acute GI Bleed Interval history: Patient is seen today for: Sepsis Syndrome; Acute Hypoxemic Resp Failure; Acute Encephalopathy; ESRD Seen and examined at bedside; 24hour events reviewed; nursing and respiratory care staff consulted; no adverse overnight events reported to me; resting in bed ; agitated earlier and sedation increased; tolerating PSV at 12/5; No emesis or overt aspiration and no gross bleeding Objective Vital Signs - 12hr 09/24/17 09/24/17 09/24/17 02:30 02:41 02:51 Temperature Pulse Rate 65 65 69 Pulse Rate [ Anterior Bilateral Throughout] Pulse Rate [ Apical] Respiratory 25 H 25 H 25 H Rate Respiratory Rate [Abdomen] Respiratory Rate [Anterior Bilateral Throughout] Blood Pressure 139/60 139/60 139/60 O2 Sat by Pulse 97 99 97 Oximetry 09/24/17 09/24/17 09/24/17 03:01 03:11 03:21 Temperature Pulse Rate 71 80 72 Pulse Rate [ Anterior Bilateral Throughout] Pulse Rate [ Apical] Respiratory 25 H 25 H 25 H Rate Respiratory Rate [Abdomen] Respiratory Rate [Anterior Bilateral Throughout] Blood Pressure 145/79 145/79 145/79 O2 Sat by Pulse 96 Oximetry 09/24/17 09/24/17 09/24/17 03:30 03:41 03:51 Temperature Pulse Rate 70 65 63 Pulse Rate [ Anterior Bilateral Throughout] Pulse Rate [ Apical] Respiratory 25 H 25 H 25 H Rate Respiratory Rate [Abdomen] Respiratory Rate [Anterior Bilateral Throughout] Blood Pressure 141/66 141/66 141/66 O2 Sat by Pulse Oximetry 09/24/17 09/24/17 09/24/17 04:00 04:07 04:11 Temperature 98.2 F Pulse Rate 61 62 Pulse Rate [ Anterior Bilateral Throughout] Pulse Rate [ 69 Apical] Respiratory 25 H 25 H Rate Respiratory Rate [Abdomen] Respiratory Rate [Anterior Bilateral Throughout] Blood Pressure 126/61 126/61 O2 Sat by Pulse Oximetry 09/24/17 09/24/17 09/24/17 04:21 04:30 04:41 Temperature Pulse Rate 62 61 61 Pulse Rate [ Anterior Bilateral Throughout] Pulse Rate [ Apical] Respiratory 25 H 25 H 25 H Rate Respiratory Rate [Abdomen] Respiratory Rate [Anterior Bilateral Throughout] Blood Pressure 126/61 131/63 131/63 O2 Sat by Pulse 100 Oximetry 09/24/17 09/24/17 09/24/17 04:51 04:52 05:00 Temperature Pulse Rate 63 63 62 Pulse Rate [ Anterior Bilateral Throughout] Pulse Rate [ Apical] Respiratory 25 H 25 H Rate Respiratory Rate [Abdomen] Respiratory Rate [Anterior Bilateral Throughout] Blood Pressure 131/63 131/63 142/66 O2 Sat by Pulse 100 Oximetry 09/24/17 09/24/17 09/24/17 05:11 05:21 05:30 Temperature Pulse Rate 62 59 L 60 Pulse Rate [ Anterior Bilateral Throughout] Pulse Rate [ Apical] Respiratory 25 H 25 H 25 H Rate Respiratory Rate [Abdomen] Respiratory Rate [Anterior Bilateral Throughout] Blood Pressure 142/66 142/66 140/64 O2 Sat by Pulse Oximetry 09/24/17 09/24/17 09/24/17 05:41 05:51 06:00 Temperature Pulse Rate 60 60 62 Pulse Rate [ Anterior Bilateral Throughout] Pulse Rate [ Apical] Respiratory 25 H 25 H 25 H Rate Respiratory Rate [Abdomen] Respiratory Rate [Anterior Bilateral Throughout] Blood Pressure 140/64 140/64 153/70 O2 Sat by Pulse Oximetry 09/24/17 09/24/17 09/24/17 06:11 06:21 06:30 Temperature Pulse Rate 58 L 62 61 Pulse Rate [ Anterior Bilateral Throughout] Pulse Rate [ Apical] Respiratory 25 H 25 H 25 H Rate Respiratory Rate [Abdomen] Respiratory Rate [Anterior Bilateral Throughout] Blood Pressure 153/70 153/70 152/68 O2 Sat by Pulse Oximetry 09/24/17 09/24/17 09/24/17 06:41 06:51 07:00 Temperature Pulse Rate 58 L 58 L 62 Pulse Rate [ Anterior Bilateral Throughout] Pulse Rate [ Apical] Respiratory 25 H 25 H 25 H Rate Respiratory Rate [Abdomen] Respiratory Rate [Anterior Bilateral Throughout] Blood Pressure 152/68 152/68 158/72 O2 Sat by Pulse Oximetry 09/24/17 09/24/17 09/24/17 07:11 07:21 07:30 Temperature Pulse Rate 58 L 56 L 54 L Pulse Rate [ Anterior Bilateral Throughout] Pulse Rate [ Apical] Respiratory 25 H 25 H 25 H Rate Respiratory Rate [Abdomen] Respiratory Rate [Anterior Bilateral Throughout] Blood Pressure 158/72 158/72 155/67 O2 Sat by Pulse Oximetry 09/24/17 09/24/17 09/24/17 07:41 07:51 08:00 Temperature 98.4 F Pulse Rate 66 58 L 57 L Pulse Rate [ Anterior Bilateral Throughout] Pulse Rate [ Apical] Respiratory 24 25 H 25 H Rate Respiratory Rate [Abdomen] Respiratory Rate [Anterior Bilateral Throughout] Blood Pressure 155/67 155/67 157/72 O2 Sat by Pulse Oximetry 09/24/17 09/24/17 09/24/17 08:11 08:21 08:30 Temperature Pulse Rate 61 58 L 61 Pulse Rate [ Anterior Bilateral Throughout] Pulse Rate [ Apical] Respiratory 25 H 25 H 25 H Rate Respiratory Rate [Abdomen] Respiratory Rate [Anterior Bilateral Throughout] Blood Pressure 157/72 157/72 172/72 O2 Sat by Pulse Oximetry 09/24/17 09/24/17 09/24/17 08:41 08:51 09:00 Temperature Pulse Rate 62 62 62 Pulse Rate [ Anterior Bilateral Throughout] Pulse Rate [ Apical] Respiratory 25 H 25 H 25 H Rate Respiratory Rate [Abdomen] Respiratory Rate [Anterior Bilateral Throughout] Blood Pressure 172/72 172/72 166/78 O2 Sat by Pulse 100 100 98 Oximetry 09/24/17 09/24/17 09/24/17 09:11 09:21 09:25 Temperature Pulse Rate 62 59 L Pulse Rate [ 68 Anterior Bilateral Throughout] Pulse Rate [ Apical] Respiratory 25 H 25 H Rate Respiratory Rate [Abdomen] Respiratory 24 Rate [Anterior Bilateral Throughout] Blood Pressure 166/78 166/78 O2 Sat by Pulse 100 100 Oximetry 09/24/17 09/24/17 09/24/17 09:31 09:33 09:41 Temperature Pulse Rate 81 62 71 Pulse Rate [ Anterior Bilateral Throughout] Pulse Rate [ Apical] Respiratory 26 H 22 13 Rate Respiratory Rate [Abdomen] Respiratory Rate [Anterior Bilateral Throughout] Blood Pressure 144/69 144/69 144/69 O2 Sat by Pulse 100 100 100 Oximetry 09/24/17 09/24/17 09/24/17 09:51 10:00 10:11 Temperature Pulse Rate 68 69 70 Pulse Rate [ 70 Anterior Bilateral Throughout] Pulse Rate [ Apical] Respiratory 11 L 11 L 15 Rate Respiratory 25 H Rate [Abdomen] Respiratory 28 H Rate [Anterior Bilateral Throughout] Blood Pressure 144/69 159/63 159/63 O2 Sat by Pulse 100 99 99 Oximetry 09/24/17 09/24/17 09/24/17 10:21 10:30 10:41 Temperature Pulse Rate 69 71 69 Pulse Rate [ Anterior Bilateral Throughout] Pulse Rate [ Apical] Respiratory 13 15 13 Rate Respiratory Rate [Abdomen] Respiratory Rate [Anterior Bilateral Throughout] Blood Pressure 159/63 167/65 167/65 O2 Sat by Pulse 99 97 99 Oximetry 09/24/17 09/24/17 09/24/17 10:51 11:01 11:11 Temperature Pulse Rate 69 88 91 H Pulse Rate [ Anterior Bilateral Throughout] Pulse Rate [ Apical] Respiratory 12 23 20 Rate Respiratory Rate [Abdomen] Respiratory Rate [Anterior Bilateral Throughout] Blood Pressure 167/65 167/65 167/65 O2 Sat by Pulse 99 Oximetry 09/24/17 09/24/17 09/24/17 11:21 11:30 11:41 Temperature Pulse Rate 86 79 74 Pulse Rate [ Anterior Bilateral Throughout] Pulse Rate [ Apical] Respiratory 13 16 14 Rate Respiratory Rate [Abdomen] Respiratory Rate [Anterior Bilateral Throughout] Blood Pressure 167/65 156/67 156/67 O2 Sat by Pulse Oximetry 09/24/17 09/24/17 09/24/17 11:51 12:00 12:11 Temperature 98.4 F Pulse Rate 71 70 75 Pulse Rate [ Anterior Bilateral Throughout] Pulse Rate [ Apical] Respiratory 14 13 15 Rate Respiratory Rate [Abdomen] Respiratory Rate [Anterior Bilateral Throughout] Blood Pressure 156/67 141/67 156/67 O2 Sat by Pulse Oximetry 09/24/17 12:21 Temperature Pulse Rate 82 Pulse Rate [ Anterior Bilateral Throughout] Pulse Rate [ Apical] Respiratory 15 Rate Respiratory Rate [Abdomen] Respiratory Rate [Anterior Bilateral Throughout] Blood Pressure 156/67 O2 Sat by Pulse Oximetry Constitutional: no acute distress, other (sedated; RASS -1) Eyes: non-icteric ENT: oropharynx moist Neck: supple, no lymphadenopathy, no JVD, other (no thyromegaly) Effort: mildly labored Ascultation: Bilateral: rales Percussion: Bilateral: not dull Cardiovascular: regular rate and rhythm, other (No Rubs / Murmurs) Gastrointestinal: normoactive bowel sounds, soft, non-tender, non-distended, other (No HSM) Integumentary: normal Extremities: no cyanosis, no edema, pulses normal, no ischemia or petechiae Neurologic: non-focal exam (grossly), unable to assess Psychiatric: anxious (during sedation vacation), other (sedated) CBC and BMP: 09/24/17 06:00 09/25/17 04:00 ABG, PT/INR, D-dimer: ABG POC ABG pH 7.330 (7.35-7.45) L 09/24/17 14:04 POC ABG pCO2 43.2 (35-45) 09/24/17 14:04 POC ABG pO2 93 (80-105) 09/24/17 14:04 POC ABG HCO3 22.8 09/24/17 14:04 POC ABG Total CO2 24 09/24/17 14:04 POC ABG O2 Sat 97 09/24/17 14:04 PT/INR, D-dimer PT 21.8 Sec. (12.2-14.9) H 08/28/17 20:01 INR 1.80 (0.87-1.13) H 08/28/17 20:01 Abnormal lab findings: Abnormal Labs 08/27/17 08/27/17 08/27/17 03:02 03:02 03:02 WBC 14.6 H RBC 3.46 L Hgb 8.4 L Hct 26.5 L MCV 77 L MCH 24 L MCHC RDW 25.8 H Lymph % (Auto) [place] % (Auto) Lymph # [place] # Baso # Seg Neutrophils % Monocytes % (Manual) 8.0 H Nucleated RBC % 3.0 H Seg Neutrophils # Monocytes # (Manual) 1.2 H PT INR APTT Heparin Anti-Xa Level POC ABG pH POC ABG pCO2 POC ABG pO2 Sodium 136 L Potassium Chloride 93.3 L Carbon Dioxide BUN 21 H Creatinine Glucose 104 H POC Glucose Calcium Phosphorus Magnesium AST ALT 62 H Alkaline Phosphatase 133 H C-Reactive Protein Total Protein 8.5 H Albumin 3.2 L Triglycerides Urine pH Vancomycin Trough Salicylates < 0.3 L Crossmatch 08/27/17 08/27/17 08/27/17 05:00 07:43 11:20 WBC RBC Hgb Hct MCV MCH MCHC RDW Lymph % (Auto) [place] % (Auto) Lymph # [place] # Baso # Seg Neutrophils % Monocytes % (Manual) Nucleated RBC % Seg Neutrophils # Monocytes # (Manual) PT INR APTT Heparin Anti-Xa Level POC ABG pH POC ABG pCO2 POC ABG pO2 Sodium Potassium Chloride Carbon Dioxide BUN Creatinine Glucose POC Glucose 116 H 110 H Calcium Phosphorus Magnesium AST ALT Alkaline Phosphatase C-Reactive Protein Total Protein Albumin Triglycerides Urine pH 9.0 H Vancomycin Trough Salicylates Crossmatch 08/27/17 08/27/17 08/28/17 16:36 22:00 04:41 WBC RBC Hgb Hct MCV MCH MCHC RDW Lymph % (Auto) [place] % (Auto) Lymph # [place] # Baso # Seg Neutrophils % Monocytes % (Manual) Nucleated RBC % Seg Neutrophils # Monocytes # (Manual) PT INR APTT Heparin Anti-Xa Level POC ABG pH POC ABG pCO2 POC ABG pO2 Sodium Potassium Chloride Carbon Dioxide BUN Creatinine Glucose 139 H POC Glucose 108 H 130 H Calcium 8.2 L Phosphorus Magnesium AST ALT Alkaline Phosphatase C-Reactive Protein Total Protein Albumin Triglycerides Urine pH Vancomycin Trough Salicylates Crossmatch 08/28/17 08/28/17 08/28/17 04:41 06:46 07:16 WBC RBC Hgb Hct MCV MCH MCHC RDW Lymph % (Auto) [place] % (Auto) Lymph # [place] # Baso # Seg Neutrophils % Monocytes % (Manual) Nucleated RBC % Seg Neutrophils # Monocytes # (Manual) PT 25.2 H INR 2.17 H APTT Heparin Anti-Xa Level POC ABG pH POC ABG pCO2 POC ABG pO2 Sodium Potassium Chloride Carbon Dioxide BUN Creatinine Glucose POC Glucose 176 H 175 H Calcium Phosphorus Magnesium AST ALT Alkaline Phosphatase C-Reactive Protein Total Protein Albumin Triglycerides Urine pH Vancomycin Trough Salicylates Crossmatch 08/28/17 08/28/17 08/28/17 11:41 16:47 20:01 WBC RBC Hgb Hct MCV MCH MCHC RDW Lymph % (Auto) [place] % (Auto) Lymph # [place] # Baso # Seg Neutrophils % Monocytes % (Manual) Nucleated RBC % Seg Neutrophils # Monocytes # (Manual) PT 21.8 H INR 1.80 H APTT 56.5 H Heparin Anti-Xa Level POC ABG pH POC ABG pCO2 POC ABG pO2 Sodium Potassium Chloride Carbon Dioxide BUN Creatinine Glucose POC Glucose 176 H 206 H Calcium Phosphorus Magnesium AST ALT Alkaline Phosphatase C-Reactive Protein Total Protein Albumin Triglycerides Urine pH Vancomycin Trough Salicylates Crossmatch 08/28/17 08/29/17 08/29/17 20:43 00:07 02:30 WBC RBC Hgb 6.4 L Hct 20.6 L MCV MCH MCHC RDW Lymph % (Auto) [place] % (Auto) Lymph # [place] # Baso # Seg Neutrophils % Monocytes % (Manual) Nucleated RBC % Seg Neutrophils # Monocytes # (Manual) PT INR APTT Heparin Anti-Xa Level POC ABG pH POC ABG pCO2 POC ABG pO2 Sodium Potassium Chloride Carbon Dioxide BUN Creatinine Glucose POC Glucose 259 H Calcium Phosphorus Magnesium AST ALT Alkaline Phosphatase C-Reactive Protein Total Protein Albumin Triglycerides Urine pH Vancomycin Trough Salicylates Crossmatch See Detail 08/29/17 08/29/17 08/29/17 02:56 07:25 11:40 WBC RBC Hgb Hct MCV MCH MCHC RDW Lymph % (Auto) [place] % (Auto) Lymph # [place] # Baso # Seg Neutrophils % Monocytes % (Manual) Nucleated RBC % Seg Neutrophils # Monocytes # (Manual) PT INR APTT Heparin Anti-Xa Level POC ABG pH POC ABG pCO2 POC ABG pO2 Sodium Potassium 3.5 L Chloride Carbon Dioxide 21 L BUN 21 H Creatinine Glucose 214 H POC Glucose 220 H 174 H Calcium 8.0 L Phosphorus Magnesium 1.60 L AST ALT Alkaline Phosphatase C-Reactive Protein Total Protein Albumin Triglycerides Urine pH Vancomycin Trough Salicylates Crossmatch 08/29/17 08/29/17 08/29/17 16:10 16:40 17:48 WBC RBC Hgb 8.5 L Hct 26.7 L D MCV MCH MCHC RDW Lymph % (Auto) [place] % (Auto) Lymph # [place] # Baso # Seg Neutrophils % Monocytes % (Manual) Nucleated RBC % Seg Neutrophils # Monocytes # (Manual) PT INR APTT Heparin Anti-Xa Level POC ABG pH POC ABG pCO2 POC ABG pO2 Sodium Potassium Chloride Carbon Dioxide BUN Creatinine Glucose POC Glucose 178 H Calcium Phosphorus Magnesium AST ALT Alkaline Phosphatase C-Reactive Protein Total Protein 3.9 L D Albumin 1.5 L Triglycerides Urine pH Vancomycin Trough Salicylates Crossmatch 08/29/17 08/29/17 08/30/17 18:32 22:19 04:25 WBC RBC Hgb 7.9 L Hct 25.2 L MCV MCH MCHC RDW Lymph % (Auto) [place] % (Auto) Lymph # [place] # Baso # Seg Neutrophils % Monocytes % (Manual) Nucleated RBC % Seg Neutrophils # Monocytes # (Manual) PT INR APTT Heparin Anti-Xa Level POC ABG pH POC ABG pCO2 POC ABG pO2 Sodium Potassium Chloride Carbon Dioxide BUN Creatinine Glucose POC Glucose 247 H Calcium Phosphorus Magnesium AST ALT Alkaline Phosphatase C-Reactive Protein Total Protein Albumin Triglycerides Urine pH Vancomycin Trough 25.5 H Salicylates Crossmatch 08/30/17 08/30/17 08/30/17 04:25 07:53 11:53 WBC RBC Hgb Hct MCV MCH MCHC RDW Lymph % (Auto) [place] % (Auto) Lymph # [place] # Baso # Seg Neutrophils % Monocytes % (Manual) Nucleated RBC % Seg Neutrophils # Monocytes # (Manual) PT INR APTT Heparin Anti-Xa Level POC ABG pH POC ABG pCO2 POC ABG pO2 Sodium 136 L Potassium 3.2 L Chloride Carbon Dioxide 18 L BUN 29 H Creatinine Glucose 203 H POC Glucose 193 H 246 H Calcium Phosphorus Magnesium AST ALT Alkaline Phosphatase C-Reactive Protein Total Protein Albumin Triglycerides Urine pH Vancomycin Trough Salicylates Crossmatch 08/30/17 08/30/17 08/31/17 16:47 21:36 04:28 WBC RBC Hgb Hct MCV MCH MCHC RDW Lymph % (Auto) [place] % (Auto) Lymph # [place] # Baso # Seg Neutrophils % Monocytes % (Manual) Nucleated RBC % Seg Neutrophils # Monocytes # (Manual) PT INR APTT Heparin Anti-Xa Level POC ABG pH POC ABG pCO2 POC ABG pO2 Sodium Potassium 3.5 L Chloride 111.0 H Carbon Dioxide 19 L BUN 25 H Creatinine Glucose 53 L POC Glucose 159 H 110 H Calcium Phosphorus Magnesium AST ALT Alkaline Phosphatase C-Reactive Protein Total Protein 6.0 L D Albumin 2.2 L Triglycerides Urine pH Vancomycin Trough Salicylates Crossmatch 08/31/17 08/31/17 08/31/17 04:28 07:31 07:34 WBC RBC 2.99 L Hgb 7.8 L Hct 23.8 L MCV 80 L MCH 26 L MCHC RDW 22.7 H Lymph % (Auto) [place] % (Auto) 13.0 H Lymph # [place] # 1.3 H Baso # Seg Neutrophils % Monocytes % (Manual) Nucleated RBC % Seg Neutrophils # Monocytes # (Manual) PT INR APTT Heparin Anti-Xa Level POC ABG pH POC ABG pCO2 POC ABG pO2 Sodium Potassium Chloride Carbon Dioxide BUN Creatinine Glucose POC Glucose < 40 L 42 L Calcium Phosphorus Magnesium AST ALT Alkaline Phosphatase C-Reactive Protein Total Protein Albumin Triglycerides Urine pH Vancomycin Trough Salicylates Crossmatch 08/31/17 08/31/17 08/31/17 09:10 16:45 22:56 WBC RBC Hgb Hct MCV MCH MCHC RDW Lymph % (Auto) [place] % (Auto) Lymph # [place] # Baso # Seg Neutrophils % Monocytes % (Manual) Nucleated RBC % Seg Neutrophils # Monocytes # (Manual) PT INR APTT Heparin Anti-Xa Level POC ABG pH POC ABG pCO2 POC ABG pO2 Sodium Potassium Chloride Carbon Dioxide BUN Creatinine Glucose POC Glucose 64 L 173 H 167 H Calcium Phosphorus Magnesium AST ALT Alkaline Phosphatase C-Reactive Protein Total Protein Albumin Triglycerides Urine pH Vancomycin Trough Salicylates Crossmatch 09/01/17 09/01/17 09/01/17 04:05 04:05 07:26 WBC RBC Hgb 8.4 L Hct 26.3 L MCV MCH MCHC RDW Lymph % (Auto) [place] % (Auto) Lymph # [place] # Baso # Seg Neutrophils % Monocytes % (Manual) Nucleated RBC % Seg Neutrophils # Monocytes # (Manual) PT INR APTT Heparin Anti-Xa Level POC ABG pH POC ABG pCO2 POC ABG pO2 Sodium Potassium Chloride 109.0 H Carbon Dioxide 17 L BUN 23 H Creatinine Glucose 187 H POC Glucose 256 H Calcium Phosphorus Magnesium AST ALT Alkaline Phosphatase C-Reactive Protein Total Protein Albumin Triglycerides 210 H Urine pH Vancomycin Trough Salicylates Crossmatch 09/01/17 09/01/17 09/01/17 10:43 10:43 11:53 WBC RBC Hgb Hct MCV MCH MCHC RDW Lymph % (Auto) [place] % (Auto) Lymph # [place] # Baso # Seg Neutrophils % Monocytes % (Manual) Nucleated RBC % Seg Neutrophils # Monocytes # (Manual) PT INR APTT Heparin Anti-Xa Level POC ABG pH POC ABG pCO2 POC ABG pO2 Sodium Potassium Chloride Carbon Dioxide BUN Creatinine Glucose POC Glucose 251 H Calcium Phosphorus Magnesium AST ALT Alkaline Phosphatase C-Reactive Protein 28.80 H Total Protein Albumin Triglycerides Urine pH Vancomycin Trough 27.7 H Salicylates Crossmatch 09/01/17 09/01/17 09/01/17 17:05 20:46 Unknown WBC RBC Hgb Hct MCV MCH MCHC RDW Lymph % (Auto) [place] % (Auto) Lymph # [place] # Baso # Seg Neutrophils % Monocytes % (Manual) Nucleated RBC % Seg Neutrophils # Monocytes # (Manual) PT INR APTT Heparin Anti-Xa Level 0.11 L POC ABG pH 7.485 H POC ABG pCO2 25.0 L POC ABG pO2 Sodium Potassium Chloride Carbon Dioxide BUN Creatinine Glucose POC Glucose 180 H Calcium Phosphorus Magnesium AST ALT Alkaline Phosphatase C-Reactive Protein Total Protein Albumin Triglycerides Urine pH Vancomycin Trough Salicylates Crossmatch 09/02/17 09/02/17 09/02/17 01:02 05:15 05:15 WBC RBC Hgb Hct MCV MCH MCHC RDW Lymph % (Auto) [place] % (Auto) Lymph # [place] # Baso # Seg Neutrophils % Monocytes % (Manual) Nucleated RBC % Seg Neutrophils # Monocytes # (Manual) PT INR APTT Heparin Anti-Xa Level 0.13 L POC ABG pH POC ABG pCO2 POC ABG pO2 Sodium Potassium Chloride 110.3 H Carbon Dioxide 19 L BUN 23 H Creatinine Glucose 172 H POC Glucose 222 H Calcium Phosphorus Magnesium AST ALT Alkaline Phosphatase C-Reactive Protein Total Protein Albumin Triglycerides Urine pH Vancomycin Trough Salicylates Crossmatch 09/02/17 09/02/17 09/02/17 07:46 10:03 11:41 WBC RBC Hgb Hct MCV MCH MCHC RDW Lymph % (Auto) [place] % (Auto) Lymph # [place] # Baso # Seg Neutrophils % Monocytes % (Manual) Nucleated RBC % Seg Neutrophils # Monocytes # (Manual) PT INR APTT Heparin Anti-Xa Level < 0.10 L POC ABG pH POC ABG pCO2 POC ABG pO2 Sodium Potassium Chloride Carbon Dioxide BUN Creatinine Glucose POC Glucose 217 H 211 H Calcium Phosphorus Magnesium AST ALT Alkaline Phosphatase C-Reactive Protein Total Protein Albumin Triglycerides Urine pH Vancomycin Trough Salicylates Crossmatch 09/02/17 09/02/17 09/02/17 16:43 19:24 22:06 WBC RBC Hgb Hct MCV MCH MCHC RDW Lymph % (Auto) [place] % (Auto) Lymph # [place] # Baso # Seg Neutrophils % Monocytes % (Manual) Nucleated RBC % Seg Neutrophils # Monocytes # (Manual) PT INR APTT Heparin Anti-Xa Level 0.19 L POC ABG pH POC ABG pCO2 POC ABG pO2 Sodium Potassium Chloride Carbon Dioxide BUN Creatinine Glucose POC Glucose 247 H 196 H Calcium Phosphorus Magnesium AST ALT Alkaline Phosphatase C-Reactive Protein Total Protein Albumin Triglycerides Urine pH Vancomycin Trough Salicylates Crossmatch 09/03/17 09/03/17 09/03/17 04:50 04:50 08:02 WBC RBC 2.80 L Hgb 7.1 L Hct 22.5 L MCV 80 L MCH 25 L MCHC 31 L RDW 22.7 H Lymph % (Auto) [place] % (Auto) 7.6 H Lymph # [place] # Baso # Seg Neutrophils % Monocytes % (Manual) Nucleated RBC % Seg Neutrophils # Monocytes # (Manual) PT INR APTT Heparin Anti-Xa Level POC ABG pH POC ABG pCO2 POC ABG pO2 Sodium Potassium Chloride 109.7 H Carbon Dioxide 20 L BUN 27 H Creatinine Glucose 193 H POC Glucose 226 H Calcium Phosphorus Magnesium AST ALT Alkaline Phosphatase 140 H C-Reactive Protein Total Protein Albumin 2.4 L Triglycerides Urine pH Vancomycin Trough Salicylates Crossmatch 09/03/17 09/03/17 09/03/17 11:54 16:26 22:03 WBC RBC Hgb Hct MCV MCH MCHC RDW Lymph % (Auto) [place] % (Auto) Lymph # [place] # Baso # Seg Neutrophils % Monocytes % (Manual) Nucleated RBC % Seg Neutrophils # Monocytes # (Manual) PT INR APTT Heparin Anti-Xa Level POC ABG pH POC ABG pCO2 POC ABG pO2 Sodium Potassium Chloride Carbon Dioxide BUN Creatinine Glucose POC Glucose 221 H 123 H 206 H Calcium Phosphorus Magnesium AST ALT Alkaline Phosphatase C-Reactive Protein Total Protein Albumin Triglycerides Urine pH Vancomycin Trough Salicylates Crossmatch 09/04/17 09/04/17 09/04/17 07:56 11:35 16:30 WBC RBC Hgb Hct MCV MCH MCHC RDW Lymph % (Auto) [place] % (Auto) Lymph # [place] # Baso # Seg Neutrophils % Monocytes % (Manual) Nucleated RBC % Seg Neutrophils # Monocytes # (Manual) PT INR APTT Heparin Anti-Xa Level POC ABG pH POC ABG pCO2 POC ABG pO2 Sodium Potassium Chloride Carbon Dioxide BUN Creatinine Glucose POC Glucose 205 H 263 H 158 H Calcium Phosphorus Magnesium AST ALT Alkaline Phosphatase C-Reactive Protein Total Protein Albumin Triglycerides Urine pH Vancomycin Trough Salicylates Crossmatch 09/04/17 09/05/17 09/05/17 22:33 08:00 08:00 WBC 12.5 H RBC 2.81 L Hgb 6.9 L Hct 22.6 L MCV 81 L MCH 24 L MCHC 30 L RDW 22.4 H Lymph % (Auto) [place] % (Auto) 8.0 H Lymph # [place] # 1.0 H Baso # Seg Neutrophils % Monocytes % (Manual) Nucleated RBC % Seg Neutrophils # Monocytes # (Manual) PT INR APTT Heparin Anti-Xa Level POC ABG pH POC ABG pCO2 POC ABG pO2 Sodium Potassium Chloride 109.0 H Carbon Dioxide 20 L BUN 27 H Creatinine Glucose 219 H POC Glucose 217 H Calcium Phosphorus Magnesium AST ALT Alkaline Phosphatase 169 H C-Reactive Protein Total Protein Albumin 2.4 L Triglycerides Urine pH Vancomycin Trough Salicylates Crossmatch 09/05/17 09/05/17 09/05/17 11:58 15:52 22:35 WBC RBC Hgb Hct MCV MCH MCHC RDW Lymph % (Auto) [place] % (Auto) Lymph # [place] # Baso # Seg Neutrophils % Monocytes % (Manual) Nucleated RBC % Seg Neutrophils # Monocytes # (Manual) PT INR APTT Heparin Anti-Xa Level POC ABG pH POC ABG pCO2 POC ABG pO2 Sodium Potassium Chloride Carbon Dioxide BUN Creatinine Glucose POC Glucose 251 H 200 H 259 H Calcium Phosphorus Magnesium AST ALT Alkaline Phosphatase C-Reactive Protein Total Protein Albumin Triglycerides Urine pH Vancomycin Trough Salicylates Crossmatch 09/05/17 09/06/17 09/06/17 23:55 08:19 09:32 WBC 12.0 H RBC 2.75 L 2.93 L Hgb 7.0 L 7.1 L Hct 22.2 L 23.5 L MCV 81 L 80 L MCH 25 L 24 L MCHC 31 L 30 L RDW 23.1 H 22.4 H Lymph % (Auto) [place] % (Auto) Lymph # [place] # Baso # Seg Neutrophils % Monocytes % (Manual) Nucleated RBC % Seg Neutrophils # 8.1 H Monocytes # (Manual) PT INR APTT Heparin Anti-Xa Level POC ABG pH POC ABG pCO2 POC ABG pO2 Sodium Potassium Chloride Carbon Dioxide BUN Creatinine Glucose POC Glucose 210 H Calcium Phosphorus Magnesium AST ALT Alkaline Phosphatase C-Reactive Protein Total Protein Albumin Triglycerides Urine pH Vancomycin Trough Salicylates Crossmatch 09/06/17 09/06/17 09/06/17 12:08 16:15 21:17 WBC RBC 2.83 L Hgb 7.2 L Hct 22.9 L MCV 81 L MCH 25 L MCHC 31 L RDW 22.4 H Lymph % (Auto) [place] % (Auto) 8.1 H Lymph # [place] # Baso # Seg Neutrophils % Monocytes % (Manual) Nucleated RBC % Seg Neutrophils # Monocytes # (Manual) PT INR APTT Heparin Anti-Xa Level POC ABG pH POC ABG pCO2 POC ABG pO2 Sodium Potassium Chloride Carbon Dioxide BUN Creatinine Glucose POC Glucose 179 H 157 H Calcium Phosphorus Magnesium AST ALT Alkaline Phosphatase C-Reactive Protein Total Protein Albumin Triglycerides Urine pH Vancomycin Trough Salicylates Crossmatch 09/06/17 09/07/17 09/07/17 23:17 07:40 07:40 WBC RBC 2.81 L Hgb 7.2 L Hct 22.4 L MCV 80 L MCH 26 L MCHC RDW 23.0 H Lymph % (Auto) [place] % (Auto) Lymph # [place] # Baso # Seg Neutrophils % 73.7 H Monocytes % (Manual) Nucleated RBC % Seg Neutrophils # Monocytes # (Manual) PT INR APTT Heparin Anti-Xa Level POC ABG pH POC ABG pCO2 POC ABG pO2 Sodium Potassium Chloride 108.0 H Carbon Dioxide 21 L BUN Creatinine Glucose 186 H POC Glucose 195 H Calcium Phosphorus Magnesium AST ALT Alkaline Phosphatase 143 H C-Reactive Protein Total Protein Albumin 2.5 L Triglycerides Urine pH Vancomycin Trough Salicylates Crossmatch 09/07/17 09/07/17 09/07/17 07:40 08:40 11:35 WBC RBC Hgb Hct MCV MCH MCHC RDW Lymph % (Auto) [place] % (Auto) Lymph # [place] # Baso # Seg Neutrophils % Monocytes % (Manual) Nucleated RBC % Seg Neutrophils # Monocytes # (Manual) PT INR APTT Heparin Anti-Xa Level POC ABG pH POC ABG pCO2 POC ABG pO2 Sodium Potassium Chloride 109.1 H Carbon Dioxide 21 L BUN Creatinine Glucose 183 H POC Glucose 218 H 229 H Calcium Phosphorus Magnesium AST ALT Alkaline Phosphatase 141 H C-Reactive Protein Total Protein Albumin 2.6 L Triglycerides Urine pH Vancomycin Trough Salicylates Crossmatch 09/07/17 09/07/17 09/07/17 14:57 16:35 21:30 WBC RBC 2.56 L Hgb 6.6 L Hct 20.5 L MCV 80 L MCH 26 L MCHC RDW 22.5 H Lymph % (Auto) [place] % (Auto) 8.1 H Lymph # [place] # 0.9 H Baso # 0.2 H Seg Neutrophils % Monocytes % (Manual) Nucleated RBC % Seg Neutrophils # Monocytes # (Manual) PT INR APTT Heparin Anti-Xa Level POC ABG pH POC ABG pCO2 POC ABG pO2 68 L Sodium Potassium Chloride Carbon Dioxide BUN Creatinine Glucose POC Glucose 256 H Calcium Phosphorus Magnesium AST ALT Alkaline Phosphatase C-Reactive Protein Total Protein Albumin Triglycerides Urine pH Vancomycin Trough Salicylates Crossmatch 09/07/17 09/08/17 09/08/17 22:35 08:13 11:50 WBC RBC Hgb Hct MCV MCH MCHC RDW Lymph % (Auto) [place] % (Auto) Lymph # [place] # Baso # Seg Neutrophils % Monocytes % (Manual) Nucleated RBC % Seg Neutrophils # Monocytes # (Manual) PT INR APTT Heparin Anti-Xa Level POC ABG pH POC ABG pCO2 POC ABG pO2 Sodium Potassium Chloride Carbon Dioxide BUN Creatinine Glucose POC Glucose 230 H 213 H 206 H Calcium Phosphorus Magnesium AST ALT Alkaline Phosphatase C-Reactive Protein Total Protein Albumin Triglycerides Urine pH Vancomycin Trough Salicylates Crossmatch 09/08/17 09/08/17 09/08/17 17:14 20:45 20:50 WBC 12.3 H RBC 2.74 L Hgb 6.7 L Hct 21.8 L MCV 79 L MCH 24 L MCHC 31 L RDW 23.0 H Lymph % (Auto) [place] % (Auto) 7.7 H Lymph # [place] # 0.9 H Baso # Seg Neutrophils % Monocytes % (Manual) Nucleated RBC % Seg Neutrophils # Monocytes # (Manual) PT INR APTT Heparin Anti-Xa Level 0.15 L POC ABG pH POC ABG pCO2 POC ABG pO2 Sodium Potassium Chloride Carbon Dioxide BUN Creatinine Glucose POC Glucose 210 H Calcium Phosphorus Magnesium AST ALT Alkaline Phosphatase C-Reactive Protein Total Protein Albumin Triglycerides Urine pH Vancomycin Trough Salicylates Crossmatch 09/08/17 09/09/17 09/09/17 22:08 06:50 06:50 WBC RBC 2.64 L Hgb 6.6 L Hct 21.2 L MCV 80 L MCH 25 L MCHC 31 L RDW 22.7 H Lymph % (Auto) [place] % (Auto) 9.3 H Lymph # [place] # 1.0 H Baso # Seg Neutrophils % Monocytes % (Manual) Nucleated RBC % Seg Neutrophils # Monocytes # (Manual) PT INR APTT Heparin Anti-Xa Level POC ABG pH POC ABG pCO2 POC ABG pO2 Sodium 136 L Potassium Chloride Carbon Dioxide BUN Creatinine 0.7 L Glucose 182 H POC Glucose 217 H Calcium Phosphorus Magnesium AST ALT Alkaline Phosphatase C-Reactive Protein Total Protein Albumin 2.5 L Triglycerides Urine pH Vancomycin Trough Salicylates Crossmatch 09/09/17 09/09/17 09/09/17 08:00 11:24 16:40 WBC RBC Hgb Hct MCV MCH MCHC RDW Lymph % (Auto) [place] % (Auto) Lymph # [place] # Baso # Seg Neutrophils % Monocytes % (Manual) Nucleated RBC % Seg Neutrophils # Monocytes # (Manual) PT INR APTT Heparin Anti-Xa Level POC ABG pH POC ABG pCO2 POC ABG pO2 Sodium Potassium Chloride Carbon Dioxide BUN Creatinine Glucose POC Glucose 245 H 257 H 220 H Calcium Phosphorus Magnesium AST ALT Alkaline Phosphatase C-Reactive Protein Total Protein Albumin Triglycerides Urine pH Vancomycin Trough Salicylates Crossmatch 09/09/17 09/09/17 09/09/17 17:50 19:14 19:14 WBC RBC 5.12 H Hgb Hct MCV 80 L MCH 25 L MCHC 31 L RDW 23.3 H Lymph % (Auto) [place] % (Auto) Lymph # [place] # Baso # Seg Neutrophils % Monocytes % (Manual) Nucleated RBC % Seg Neutrophils # Monocytes # (Manual) PT INR APTT Heparin Anti-Xa Level < 0.10 L < 0.10 L POC ABG pH POC ABG pCO2 POC ABG pO2 Sodium Potassium Chloride Carbon Dioxide BUN Creatinine Glucose POC Glucose Calcium Phosphorus Magnesium AST ALT Alkaline Phosphatase C-Reactive Protein Total Protein Albumin Triglycerides Urine pH Vancomycin Trough Salicylates Crossmatch 09/09/17 09/10/17 09/10/17 23:50 03:55 03:55 WBC 11.1 H RBC 2.59 L Hgb 6.7 L D Hct 20.9 L D MCV 81 L MCH 26 L MCHC RDW 22.6 H Lymph % (Auto) [place] % (Auto) 8.7 H Lymph # [place] # 1.0 H Baso # Seg Neutrophils % Monocytes % (Manual) Nucleated RBC % Seg Neutrophils # Monocytes # (Manual) PT INR APTT Heparin Anti-Xa Level POC ABG pH POC ABG pCO2 POC ABG pO2 Sodium Potassium Chloride Carbon Dioxide BUN Creatinine 0.7 L Glucose 191 H POC Glucose 192 H Calcium Phosphorus Magnesium AST ALT Alkaline Phosphatase C-Reactive Protein Total Protein Albumin Triglycerides Urine pH Vancomycin Trough Salicylates Crossmatch 09/10/17 09/10/17 09/10/17 08:39 11:33 14:30 WBC RBC Hgb 6.1 L Hct 19.8 L* MCV MCH MCHC RDW Lymph % (Auto) [place] % (Auto) Lymph # [place] # Baso # Seg Neutrophils % Monocytes % (Manual) Nucleated RBC % Seg Neutrophils # Monocytes # (Manual) PT INR APTT Heparin Anti-Xa Level POC ABG pH POC ABG pCO2 POC ABG pO2 Sodium Potassium Chloride Carbon Dioxide BUN Creatinine Glucose POC Glucose 233 H 231 H Calcium Phosphorus Magnesium AST ALT Alkaline Phosphatase C-Reactive Protein Total Protein Albumin Triglycerides Urine pH Vancomycin Trough Salicylates Crossmatch 09/10/17 09/10/17 09/10/17 16:20 16:50 21:25 WBC RBC Hgb Hct MCV MCH MCHC RDW Lymph % (Auto) [place] % (Auto) Lymph # [place] # Baso # Seg Neutrophils % Monocytes % (Manual) Nucleated RBC % Seg Neutrophils # Monocytes # (Manual) PT INR APTT Heparin Anti-Xa Level POC ABG pH POC ABG pCO2 POC ABG pO2 Sodium Potassium Chloride Carbon Dioxide BUN Creatinine Glucose POC Glucose 189 H 113 H Calcium Phosphorus Magnesium AST ALT Alkaline Phosphatase C-Reactive Protein Total Protein Albumin Triglycerides Urine pH Vancomycin Trough Salicylates Crossmatch See Detail 09/11/17 09/11/17 09/11/17 04:27 08:06 11:32 WBC RBC Hgb Hct MCV MCH MCHC RDW Lymph % (Auto) [place] % (Auto) Lymph # [place] # Baso # Seg Neutrophils % Monocytes % (Manual) Nucleated RBC % Seg Neutrophils # Monocytes # (Manual) PT INR APTT Heparin Anti-Xa Level POC ABG pH POC ABG pCO2 POC ABG pO2 Sodium Potassium Chloride Carbon Dioxide BUN Creatinine Glucose 174 H POC Glucose 232 H 298 H Calcium Phosphorus Magnesium AST ALT Alkaline Phosphatase C-Reactive Protein Total Protein Albumin Triglycerides Urine pH Vancomycin Trough Salicylates Crossmatch 09/11/17 09/11/17 09/11/17 14:18 14:20 17:34 WBC RBC Hgb 8.3 L Hct 25.6 L MCV MCH MCHC RDW Lymph % (Auto) [place] % (Auto) Lymph # [place] # Baso # Seg Neutrophils % Monocytes % (Manual) Nucleated RBC % Seg Neutrophils # Monocytes # (Manual) PT INR APTT Heparin Anti-Xa Level < 0.10 L POC ABG pH POC ABG pCO2 POC ABG pO2 Sodium Potassium Chloride Carbon Dioxide BUN Creatinine Glucose POC Glucose 184 H Calcium Phosphorus Magnesium AST ALT Alkaline Phosphatase C-Reactive Protein Total Protein Albumin Triglycerides Urine pH Vancomycin Trough Salicylates Crossmatch 09/11/17 09/11/17 09/12/17 20:11 22:15 06:08 WBC RBC 3.33 L Hgb 8.6 L Hct 26.9 L MCV 81 L MCH 26 L MCHC RDW 20.3 H Lymph % (Auto) [place] % (Auto) 8.9 H Lymph # [place] # Baso # Seg Neutrophils % Monocytes % (Manual) Nucleated RBC % Seg Neutrophils # Monocytes # (Manual) PT INR APTT Heparin Anti-Xa Level POC ABG pH POC ABG pCO2 POC ABG pO2 Sodium Potassium Chloride Carbon Dioxide BUN 22 H Creatinine Glucose 186 H POC Glucose 184 H Calcium Phosphorus Magnesium AST ALT Alkaline Phosphatase C-Reactive Protein Total Protein Albumin Triglycerides Urine pH Vancomycin Trough Salicylates Crossmatch 09/12/17 09/12/17 09/12/17 08:09 11:20 17:49 WBC RBC Hgb Hct MCV MCH MCHC RDW Lymph % (Auto) [place] % (Auto) Lymph # [place] # Baso # Seg Neutrophils % Monocytes % (Manual) Nucleated RBC % Seg Neutrophils # Monocytes # (Manual) PT INR APTT Heparin Anti-Xa Level POC ABG pH POC ABG pCO2 POC ABG pO2 Sodium Potassium Chloride Carbon Dioxide BUN Creatinine Glucose POC Glucose 228 H 238 H 197 H Calcium Phosphorus Magnesium AST ALT Alkaline Phosphatase C-Reactive Protein Total Protein Albumin Triglycerides Urine pH Vancomycin Trough Salicylates Crossmatch 09/12/17 09/13/17 09/13/17 22:50 03:25 07:30 WBC RBC Hgb Hct MCV MCH MCHC RDW Lymph % (Auto) [place] % (Auto) Lymph # [place] # Baso # Seg Neutrophils % Monocytes % (Manual) Nucleated RBC % Seg Neutrophils # Monocytes # (Manual) PT INR APTT Heparin Anti-Xa Level POC ABG pH POC ABG pCO2 POC ABG pO2 Sodium Potassium Chloride 97.5 L Carbon Dioxide BUN 22 H Creatinine Glucose 192 H POC Glucose 186 H 210 H Calcium Phosphorus Magnesium AST ALT Alkaline Phosphatase C-Reactive Protein Total Protein Albumin Triglycerides Urine pH Vancomycin Trough Salicylates Crossmatch 09/13/17 09/13/17 09/13/17 11:55 16:56 23:57 WBC RBC Hgb Hct MCV MCH MCHC RDW Lymph % (Auto) [place] % (Auto) Lymph # [place] # Baso # Seg Neutrophils % Monocytes % (Manual) Nucleated RBC % Seg Neutrophils # Monocytes # (Manual) PT INR APTT Heparin Anti-Xa Level POC ABG pH POC ABG pCO2 POC ABG pO2 Sodium Potassium Chloride Carbon Dioxide BUN Creatinine Glucose POC Glucose 224 H 179 H 153 H Calcium Phosphorus Magnesium AST ALT Alkaline Phosphatase C-Reactive Protein Total Protein Albumin Triglycerides Urine pH Vancomycin Trough Salicylates Crossmatch 09/14/17 09/14/17 09/14/17 04:04 06:20 08:34 WBC RBC Hgb Hct MCV MCH MCHC RDW Lymph % (Auto) [place] % (Auto) Lymph # [place] # Baso # Seg Neutrophils % Monocytes % (Manual) Nucleated RBC % Seg Neutrophils # Monocytes # (Manual) PT INR APTT Heparin Anti-Xa Level 0.72 H POC ABG pH POC ABG pCO2 POC ABG pO2 Sodium Potassium Chloride Carbon Dioxide BUN 24 H Creatinine Glucose 198 H POC Glucose 205 H Calcium Phosphorus Magnesium AST ALT Alkaline Phosphatase C-Reactive Protein Total Protein Albumin Triglycerides Urine pH Vancomycin Trough Salicylates Crossmatch 09/14/17 09/14/17 09/14/17 11:28 15:33 23:06 WBC RBC Hgb Hct MCV MCH MCHC RDW Lymph % (Auto) [place] % (Auto) Lymph # [place] # Baso # Seg Neutrophils % Monocytes % (Manual) Nucleated RBC % Seg Neutrophils # Monocytes # (Manual) PT INR APTT Heparin Anti-Xa Level POC ABG pH POC ABG pCO2 POC ABG pO2 Sodium Potassium Chloride Carbon Dioxide BUN Creatinine Glucose POC Glucose 205 H 187 H 177 H Calcium Phosphorus Magnesium AST ALT Alkaline Phosphatase C-Reactive Protein Total Protein Albumin Triglycerides Urine pH Vancomycin Trough Salicylates Crossmatch 09/15/17 09/15/17 09/15/17 04:00 07:52 12:00 WBC RBC Hgb Hct MCV MCH MCHC RDW Lymph % (Auto) [place] % (Auto) Lymph # [place] # Baso # Seg Neutrophils % Monocytes % (Manual) Nucleated RBC % Seg Neutrophils # Monocytes # (Manual) PT INR APTT Heparin Anti-Xa Level POC ABG pH POC ABG pCO2 POC ABG pO2 Sodium Potassium Chloride Carbon Dioxide BUN 29 H Creatinine Glucose 212 H POC Glucose 254 H 236 H Calcium Phosphorus Magnesium AST ALT Alkaline Phosphatase C-Reactive Protein Total Protein Albumin Triglycerides Urine pH Vancomycin Trough Salicylates Crossmatch 09/15/17 09/15/17 09/15/17 13:28 17:07 17:58 WBC RBC 3.38 L Hgb 8.6 L Hct 27.4 L MCV 81 L MCH 26 L MCHC 31 L RDW 19.7 H Lymph % (Auto) [place] % (Auto) Lymph # [place] # Baso # Seg Neutrophils % 70.1 H Monocytes % (Manual) Nucleated RBC % Seg Neutrophils # Monocytes # (Manual) PT INR APTT Heparin Anti-Xa Level POC ABG pH POC ABG pCO2 POC ABG pO2 Sodium Potassium Chloride Carbon Dioxide BUN Creatinine Glucose POC Glucose 203 H 208 H Calcium Phosphorus Magnesium AST ALT Alkaline Phosphatase C-Reactive Protein Total Protein Albumin Triglycerides Urine pH Vancomycin Trough Salicylates Crossmatch 09/15/17 09/16/17 09/16/17 22:42 07:28 07:44 WBC RBC Hgb Hct MCV MCH MCHC RDW Lymph % (Auto) [place] % (Auto) Lymph # [place] # Baso # Seg Neutrophils % Monocytes % (Manual) Nucleated RBC % Seg Neutrophils # Monocytes # (Manual) PT INR APTT Heparin Anti-Xa Level POC ABG pH POC ABG pCO2 POC ABG pO2 Sodium Potassium Chloride Carbon Dioxide BUN 44 H Creatinine Glucose 159 H POC Glucose 171 H 172 H Calcium Phosphorus Magnesium AST ALT Alkaline Phosphatase C-Reactive Protein Total Protein Albumin Triglycerides Urine pH Vancomycin Trough Salicylates Crossmatch 09/16/17 09/16/17 09/16/17 11:45 16:41 21:41 WBC RBC Hgb Hct MCV MCH MCHC RDW Lymph % (Auto) [place] % (Auto) Lymph # [place] # Baso # Seg Neutrophils % Monocytes % (Manual) Nucleated RBC % Seg Neutrophils # Monocytes # (Manual) PT INR APTT Heparin Anti-Xa Level POC ABG pH POC ABG pCO2 POC ABG pO2 Sodium Potassium Chloride Carbon Dioxide BUN Creatinine Glucose POC Glucose 190 H 186 H 137 H Calcium Phosphorus Magnesium AST ALT Alkaline Phosphatase C-Reactive Protein Total Protein Albumin Triglycerides Urine pH Vancomycin Trough Salicylates Crossmatch 09/17/17 09/17/17 09/17/17 04:30 04:40 05:27 WBC RBC Hgb 7.3 L Hct 22.7 L MCV MCH MCHC RDW Lymph % (Auto) [place] % (Auto) Lymph # [place] # Baso # Seg Neutrophils % Monocytes % (Manual) Nucleated RBC % Seg Neutrophils # Monocytes # (Manual) PT INR APTT Heparin Anti-Xa Level POC ABG pH POC ABG pCO2 POC ABG pO2 Sodium Potassium Chloride Carbon Dioxide BUN 45 H Creatinine Glucose 166 H POC Glucose Calcium Phosphorus Magnesium AST ALT Alkaline Phosphatase C-Reactive Protein Total Protein Albumin Triglycerides Urine pH Vancomycin Trough Salicylates Crossmatch See Detail 09/17/17 09/17/17 09/17/17 07:54 11:59 16:28 WBC RBC Hgb Hct MCV MCH MCHC RDW Lymph % (Auto) [place] % (Auto) Lymph # [place] # Baso # Seg Neutrophils % Monocytes % (Manual) Nucleated RBC % Seg Neutrophils # Monocytes # (Manual) PT INR APTT Heparin Anti-Xa Level POC ABG pH POC ABG pCO2 POC ABG pO2 Sodium Potassium Chloride Carbon Dioxide BUN Creatinine Glucose POC Glucose 189 H 185 H 158 H Calcium Phosphorus Magnesium AST ALT Alkaline Phosphatase C-Reactive Protein Total Protein Albumin Triglycerides Urine pH Vancomycin Trough Salicylates Crossmatch 09/17/17 09/18/17 09/18/17 22:27 07:18 11:52 WBC RBC Hgb Hct MCV MCH MCHC RDW Lymph % (Auto) [place] % (Auto) Lymph # [place] # Baso # Seg Neutrophils % Monocytes % (Manual) Nucleated RBC % Seg Neutrophils # Monocytes # (Manual) PT INR APTT Heparin Anti-Xa Level POC ABG pH POC ABG pCO2 POC ABG pO2 Sodium Potassium Chloride Carbon Dioxide BUN Creatinine Glucose POC Glucose 174 H 314 H 312 H Calcium Phosphorus Magnesium AST ALT Alkaline Phosphatase C-Reactive Protein Total Protein Albumin Triglycerides Urine pH Vancomycin Trough Salicylates Crossmatch 09/18/17 09/18/17 09/18/17 16:49 22:50 Unknown WBC RBC Hgb 10.8 L Hct 33.3 L MCV MCH MCHC RDW Lymph % (Auto) [place] % (Auto) Lymph # [place] # Baso # Seg Neutrophils % Monocytes % (Manual) Nucleated RBC % Seg Neutrophils # Monocytes # (Manual) PT INR APTT Heparin Anti-Xa Level POC ABG pH POC ABG pCO2 POC ABG pO2 Sodium Potassium Chloride Carbon Dioxide BUN Creatinine Glucose POC Glucose 235 H 191 H Calcium Phosphorus Magnesium AST ALT Alkaline Phosphatase C-Reactive Protein Total Protein Albumin Triglycerides Urine pH Vancomycin Trough Salicylates Crossmatch 09/18/17 09/18/17 09/19/17 Unknown Unknown 07:34 WBC RBC Hgb 11.0 L D Hct 32.9 L D MCV 83 L MCH MCHC RDW 19.3 H Lymph % (Auto) [place] % (Auto) Lymph # [place] # Baso # Seg Neutrophils % Monocytes % (Manual) Nucleated RBC % Seg Neutrophils # Monocytes # (Manual) PT INR APTT Heparin Anti-Xa Level POC ABG pH POC ABG pCO2 POC ABG pO2 Sodium Potassium Chloride Carbon Dioxide BUN 37 H Creatinine Glucose 275 H POC Glucose 266 H Calcium Phosphorus Magnesium AST ALT Alkaline Phosphatase C-Reactive Protein Total Protein Albumin 2.2 L Triglycerides Urine pH Vancomycin Trough Salicylates Crossmatch 09/19/17 09/19/17 09/19/17 10:15 11:23 11:26 WBC RBC Hgb 10.4 L Hct 31.7 L MCV MCH MCHC RDW 19.3 H Lymph % (Auto) [place] % (Auto) 8.1 H Lymph # [place] # Baso # Seg Neutrophils % Monocytes % (Manual) Nucleated RBC % Seg Neutrophils # Monocytes # (Manual) PT INR APTT Heparin Anti-Xa Level POC ABG pH POC ABG pCO2 POC ABG pO2 Sodium Potassium Chloride Carbon Dioxide 21 L BUN 50 H Creatinine Glucose 263 H POC Glucose 284 H Calcium Phosphorus Magnesium AST 50 H ALT 78 H Alkaline Phosphatase C-Reactive Protein Total Protein Albumin 2.5 L Triglycerides Urine pH Vancomycin Trough Salicylates Crossmatch 09/19/17 09/19/17 09/20/17 17:20 22:25 03:15 WBC RBC Hgb Hct MCV MCH MCHC RDW Lymph % (Auto) [place] % (Auto) Lymph # [place] # Baso # Seg Neutrophils % Monocytes % (Manual) Nucleated RBC % Seg Neutrophils # Monocytes # (Manual) PT INR APTT Heparin Anti-Xa Level POC ABG pH POC ABG pCO2 POC ABG pO2 Sodium Potassium Chloride Carbon Dioxide BUN 50 H Creatinine Glucose 217 H POC Glucose 143 H 223 H Calcium Phosphorus Magnesium AST 222 H ALT 335 H Alkaline Phosphatase C-Reactive Protein Total Protein 6.0 L Albumin 2.3 L Triglycerides Urine pH Vancomycin Trough Salicylates Crossmatch 09/20/17 09/20/17 09/20/17 03:15 07:40 11:35 WBC RBC 3.22 L Hgb 8.9 L Hct 27.4 L MCV MCH MCHC RDW 19.6 H Lymph % (Auto) [place] % (Auto) 10.5 H Lymph # [place] # 0.9 H Baso # Seg Neutrophils % Monocytes % (Manual) Nucleated RBC % Seg Neutrophils # Monocytes # (Manual) PT INR APTT Heparin Anti-Xa Level POC ABG pH POC ABG pCO2 POC ABG pO2 Sodium Potassium Chloride Carbon Dioxide BUN Creatinine Glucose POC Glucose 187 H 267 H Calcium Phosphorus Magnesium AST ALT Alkaline Phosphatase C-Reactive Protein Total Protein Albumin Triglycerides Urine pH Vancomycin Trough Salicylates Crossmatch 09/20/17 09/20/17 09/21/17 16:42 22:14 05:20 WBC RBC Hgb Hct MCV MCH MCHC RDW Lymph % (Auto) [place] % (Auto) Lymph # [place] # Baso # Seg Neutrophils % Monocytes % (Manual) Nucleated RBC % Seg Neutrophils # Monocytes # (Manual) PT INR APTT Heparin Anti-Xa Level POC ABG pH POC ABG pCO2 POC ABG pO2 Sodium 136 L Potassium Chloride Carbon Dioxide 21 L BUN 71 H Creatinine 1.8 H D Glucose 279 H POC Glucose 264 H 289 H Calcium Phosphorus Magnesium 2.40 H AST ALT Alkaline Phosphatase C-Reactive Protein Total Protein Albumin Triglycerides Urine pH Vancomycin Trough Salicylates Crossmatch 09/21/17 09/21/17 09/21/17 07:22 10:51 10:51 WBC RBC 3.06 L Hgb 8.5 L Hct 26.1 L MCV MCH MCHC RDW 19.7 H Lymph % (Auto) [place] % (Auto) 8.3 H Lymph # [place] # Baso # Seg Neutrophils % Monocytes % (Manual) Nucleated RBC % Seg Neutrophils # Monocytes # (Manual) PT INR APTT Heparin Anti-Xa Level POC ABG pH POC ABG pCO2 POC ABG pO2 Sodium Potassium Chloride Carbon Dioxide 19 L BUN 71 H Creatinine 2.0 H Glucose 265 H POC Glucose 341 H Calcium Phosphorus Magnesium AST ALT 132 H Alkaline Phosphatase C-Reactive Protein Total Protein 6.0 L Albumin 2.3 L Triglycerides Urine pH Vancomycin Trough Salicylates Crossmatch 09/21/17 09/21/17 09/21/17 11:38 16:25 22:57 WBC RBC Hgb Hct MCV MCH MCHC RDW Lymph % (Auto) [place] % (Auto) Lymph # [place] # Baso # Seg Neutrophils % Monocytes % (Manual) Nucleated RBC % Seg Neutrophils # Monocytes # (Manual) PT INR APTT Heparin Anti-Xa Level POC ABG pH POC ABG pCO2 POC ABG pO2 Sodium Potassium Chloride Carbon Dioxide BUN Creatinine Glucose POC Glucose 324 H 284 H 247 H Calcium Phosphorus Magnesium AST ALT Alkaline Phosphatase C-Reactive Protein Total Protein Albumin Triglycerides Urine pH Vancomycin Trough Salicylates Crossmatch 09/22/17 09/22/17 09/22/17 04:30 04:30 04:31 WBC RBC Hgb Hct MCV MCH MCHC RDW Lymph % (Auto) [place] % (Auto) Lymph # [place] # Baso # Seg Neutrophils % Monocytes % (Manual) Nucleated RBC % Seg Neutrophils # Monocytes # (Manual) PT INR APTT Heparin Anti-Xa Level POC ABG pH POC ABG pCO2 POC ABG pO2 Sodium 136 L Potassium Chloride Carbon Dioxide 18 L BUN 87 H Creatinine 2.3 H Glucose 331 H POC Glucose 309 H Calcium Phosphorus 5.20 H Magnesium 2.60 H AST ALT 96 H Alkaline Phosphatase C-Reactive Protein Total Protein Albumin 2.6 L Triglycerides Urine pH Vancomycin Trough Salicylates Crossmatch 09/22/17 09/22/17 09/22/17 07:10 07:21 08:43 WBC RBC 2.93 L Hgb 9.6 L Hct 28.1 L MCV 96 H MCH 33 H MCHC RDW 20.5 H Lymph % (Auto) [place] % (Auto) Lymph # [place] # Baso # Seg Neutrophils % 79.5 H Monocytes % (Manual) Nucleated RBC % Seg Neutrophils # Monocytes # (Manual) PT INR APTT Heparin Anti-Xa Level POC ABG pH POC ABG pCO2 POC ABG pO2 Sodium Potassium Chloride Carbon Dioxide BUN Creatinine Glucose POC Glucose 325 H 341 H Calcium Phosphorus Magnesium AST ALT Alkaline Phosphatase C-Reactive Protein Total Protein Albumin Triglycerides Urine pH Vancomycin Trough Salicylates Crossmatch 09/22/17 09/22/17 09/22/17 11:28 11:47 13:25 WBC RBC Hgb Hct MCV MCH MCHC RDW Lymph % (Auto) [place] % (Auto) Lymph # [place] # Baso # Seg Neutrophils % Monocytes % (Manual) Nucleated RBC % Seg Neutrophils # Monocytes # (Manual) PT INR APTT Heparin Anti-Xa Level POC ABG pH 7.256 L POC ABG pCO2 POC ABG pO2 70 L Sodium Potassium Chloride Carbon Dioxide BUN Creatinine Glucose POC Glucose 384 H Calcium Phosphorus Magnesium AST ALT Alkaline Phosphatase C-Reactive Protein 6.60 H Total Protein Albumin Triglycerides Urine pH Vancomycin Trough Salicylates Crossmatch 09/22/17 09/22/17 09/22/17 15:23 17:39 21:49 WBC RBC Hgb Hct MCV MCH MCHC RDW Lymph % (Auto) [place] % (Auto) Lymph # [place] # Baso # Seg Neutrophils % Monocytes % (Manual) Nucleated RBC % Seg Neutrophils # Monocytes # (Manual) PT INR APTT Heparin Anti-Xa Level POC ABG pH POC ABG pCO2 POC ABG pO2 Sodium Potassium Chloride Carbon Dioxide BUN Creatinine Glucose POC Glucose 364 H 332 H 290 H Calcium Phosphorus Magnesium AST ALT Alkaline Phosphatase C-Reactive Protein Total Protein Albumin Triglycerides Urine pH Vancomycin Trough Salicylates Crossmatch 09/23/17 09/23/17 09/23/17 01:45 04:55 05:11 WBC RBC Hgb Hct MCV MCH MCHC RDW Lymph % (Auto) [place] % (Auto) Lymph # [place] # Baso # Seg Neutrophils % Monocytes % (Manual) Nucleated RBC % Seg Neutrophils # Monocytes # (Manual) PT INR APTT Heparin Anti-Xa Level POC ABG pH 7.333 L POC ABG pCO2 POC ABG pO2 132 H Sodium 134 L Potassium Chloride Carbon Dioxide 18 L BUN 103 H Creatinine 2.6 H Glucose 326 H POC Glucose 346 H Calcium Phosphorus 5.40 H Magnesium 2.60 H AST ALT Alkaline Phosphatase C-Reactive Protein Total Protein Albumin Triglycerides Urine pH Vancomycin Trough Salicylates Crossmatch 09/23/17 09/23/17 09/23/17 05:46 10:13 14:34 WBC RBC Hgb Hct MCV MCH MCHC RDW Lymph % (Auto) [place] % (Auto) Lymph # [place] # Baso # Seg Neutrophils % Monocytes % (Manual) Nucleated RBC % Seg Neutrophils # Monocytes # (Manual) PT INR APTT Heparin Anti-Xa Level POC ABG pH POC ABG pCO2 POC ABG pO2 Sodium Potassium Chloride Carbon Dioxide BUN Creatinine Glucose POC Glucose 307 H 307 H 307 H Calcium Phosphorus Magnesium AST ALT Alkaline Phosphatase C-Reactive Protein Total Protein Albumin Triglycerides Urine pH Vancomycin Trough Salicylates Crossmatch 09/23/17 09/23/17 09/24/17 17:25 22:40 03:00 WBC RBC Hgb Hct MCV MCH MCHC RDW Lymph % (Auto) [place] % (Auto) Lymph # [place] # Baso # Seg Neutrophils % Monocytes % (Manual) Nucleated RBC % Seg Neutrophils # Monocytes # (Manual) PT INR APTT Heparin Anti-Xa Level POC ABG pH POC ABG pCO2 POC ABG pO2 Sodium Potassium Chloride Carbon Dioxide BUN Creatinine Glucose POC Glucose 267 H 316 H 287 H Calcium Phosphorus Magnesium AST ALT Alkaline Phosphatase C-Reactive Protein Total Protein Albumin Triglycerides Urine pH Vancomycin Trough Salicylates Crossmatch 09/24/17 09/24/17 09/24/17 04:00 04:00 05:07 WBC RBC Hgb Hct 22.8 L MCV MCH 34 H MCHC RDW 19.5 H Lymph % (Auto) [place] % (Auto) Lymph # [place] # Baso # Seg Neutrophils % Monocytes % (Manual) Nucleated RBC % Seg Neutrophils # Monocytes # (Manual) PT INR APTT Heparin Anti-Xa Level POC ABG pH POC ABG pCO2 33.6 L POC ABG pO2 Sodium 132 L Potassium Chloride 86.8 L Carbon Dioxide 17 L BUN 105 H Creatinine 2.2 H Glucose 299 H POC Glucose Calcium Phosphorus 5.80 H Magnesium AST ALT Alkaline Phosphatase C-Reactive Protein Total Protein Albumin Triglycerides Urine pH Vancomycin Trough Salicylates Crossmatch 09/24/17 09/24/17 09/24/17 06:00 10:22 13:55 WBC RBC 2.89 L Hgb 8.0 L Hct 23.6 L MCV 82 L MCH MCHC RDW 19.2 H Lymph % (Auto) 10.9 L [place] % (Auto) Lymph # 0.8 L [place] # Baso # Seg Neutrophils % 85.4 H Monocytes % (Manual) Nucleated RBC % Seg Neutrophils # Monocytes # (Manual) PT INR APTT Heparin Anti-Xa Level POC ABG pH POC ABG pCO2 POC ABG pO2 Sodium Potassium Chloride Carbon Dioxide BUN Creatinine Glucose POC Glucose 345 H 351 H Calcium Phosphorus Magnesium AST ALT Alkaline Phosphatase C-Reactive Protein Total Protein Albumin Triglycerides Urine pH Vancomycin Trough Salicylates Crossmatch 09/24/17 14:04 WBC RBC Hgb Hct MCV MCH MCHC RDW Lymph % (Auto) [place] % (Auto) Lymph # [place] # Baso # Seg Neutrophils % Monocytes % (Manual) Nucleated RBC % Seg Neutrophils # Monocytes # (Manual) PT INR APTT Heparin Anti-Xa Level POC ABG pH 7.330 L POC ABG pCO2 POC ABG pO2 Sodium Potassium Chloride Carbon Dioxide BUN Creatinine Glucose POC Glucose Calcium Phosphorus Magnesium AST ALT Alkaline Phosphatase C-Reactive Protein Total Protein Albumin Triglycerides Urine pH Vancomycin Trough Salicylates Crossmatch Chest x-ray: image reviewed (increasing volume overload pattern) Allied health notes reviewed: nursing
--- NOTE | 2017-09-24 16:54 | XRay Report ---
FINAL REPORT PROCEDURE: XR ABDOMEN 1V AP TECHNIQUE: Abdominal radiograph, single supine AP view. HISTORY: ng tube repositioned COMPARISON: No prior studies are available for comparison. FINDINGS: Bowel gas pattern:Multiple dilated small and large bowel loops are noted in the visualized abdomen. An IVC filter is noted.. Masses or calcifications:None. Bony structures:No significant abnormality. Other:NG tube is terminating in the stomach. IMPRESSION: NG tube is terminating in the stomach.
[2017-09-24] MEDS ORDERED: TPN ADULT 2,016 ML IV SCH (20:00)
[2017-09-25] MEDS: fentaNYL DRIP Premix 2,000 MCG/100 ML BAG IV SCH ×2 (00:29→11:13)
[2017-09-25] MEDS: NOVOLOG SUB-Q SCH ×7 (00:50→22:45)
[2017-09-25] MEDS: ZOFRAN IV PRN (05:26)
[2017-09-25 05:36] LABS: Calcium 8.9 mg/dL (8.4-10.2); Chloride 95.7 mmol/L (98-107); Magnesium 2.2 mg/dL (1.7-2.3); Phosphorous 5.7 mg/dL (2.5-4.5)
[2017-09-25] MEDS: DUONEB *Not for PRN Use IH SCH ×4 (07:35→20:42)
[2017-09-25] MEDS: PULMICORT IH SCH ×2 (07:35→20:34)
[2017-09-25] MEDS: LEVEMIR SUB-Q SCH (09:25)
[2017-09-25] MEDS: PROTONIX PO SCH ×2 (09:25→21:27)
[2017-09-25] MEDS ORDERED: PANCREAZE DR 10,500 UNIT FEEDTUBE PRN (11:53)
[2017-09-25] MEDS ORDERED: SODIUM BICARBONATE FEEDTUBE PRN (11:53)
[2017-09-25] MEDS ORDERED: SIMPLE SYRUP FEEDTUBE PRN ×2 (11:53)
--- NOTE | 2017-09-25 12:31 | Progress Note ---
Assessment and Plan - Patient Problems (1) Acute kidney injury Current Visit: Yes Status: Acute Plan to address problem: Acute kidney injury acute tubular necrosis secondary to hypotension/contrast exposure. Pre-renal azotemia contributing to RACHEL with urine Na of 10, possibly due to CHF given worsening pulmonary edema on CXR, + JVD. Will start lasix 40mg IV daily, d/c IVF except TPN. Patient is nonoliguric. Cr slightly better today however rising BUN, likely due to pre-renal azotemia/ IV steroid use, recent GI bleed. Renal US shows no evidence of hydro Continue intravenous steroids. Follow-up electrolytes and renal function. Discussed with . (2) Hyponatremia Current Visit: Yes Status: Acute Plan to address problem: hyperglycemia contributing, cont glucose control as per primary attending. (3) DVT (deep venous thrombosis) Current Visit: Yes Status: Acute Qualifiers: Laterality: left Plan to address problem: continue anticoagulation, hematology on case (4) Elevated liver enzymes Current Visit: Yes Status: Acute Plan to address problem: monitor LFTs (5) Pulmonary embolism Current Visit: Yes Status: Acute Plan to address problem: on anticoagulation (6) Type 2 diabetes mellitus without complications Current Visit: Yes Status: Acute Plan to address problem: glucose control as per primary attending (7) Colon cancer metastasized to multiple sites Current Visit: Yes Status: Ruled-out Plan to address problem: management as per oncology (8) Anemia Current Visit: Yes Status: Acute Qualifiers: Iron deficiency anemia type: chronic blood loss Plan to address problem: monitor hb Subjective Date of service: 09/25/17 Principal diagnosis: Acute VTE (P.E. & DVT's); Acute Hypoxemic Resp Failure: Acute GI Bleed Interval history: pt intubated, sedated. Objective - Vital Signs Vital signs: Vital Signs - 12hr 09/25/17 09/25/17 09/25/17 00:30 00:41 00:51 Temperature Pulse Rate 70 68 69 Pulse Rate [ Anterior Bilateral Throughout] Pulse Rate [ 71 Apical] Respiratory 11 L 12 11 L Rate Respiratory Rate [Anterior Bilateral Throughout] Blood Pressure 131/64 131/64 131/64 O2 Sat by Pulse Oximetry 09/25/17 09/25/17 09/25/17 01:00 01:11 01:21 Temperature Pulse Rate 69 67 67 Pulse Rate [ Anterior Bilateral Throughout] Pulse Rate [ Apical] Respiratory 12 12 12 Rate Respiratory Rate [Anterior Bilateral Throughout] Blood Pressure 143/69 143/69 143/69 O2 Sat by Pulse Oximetry 09/25/17 09/25/17 09/25/17 01:30 01:41 01:51 Temperature Pulse Rate 69 69 67 Pulse Rate [ Anterior Bilateral Throughout] Pulse Rate [ Apical] Respiratory 12 11 L 11 L Rate Respiratory Rate [Anterior Bilateral Throughout] Blood Pressure 141/70 141/70 141/70 O2 Sat by Pulse Oximetry 09/25/17 09/25/17 09/25/17 02:00 02:11 02:21 Temperature Pulse Rate 68 68 74 Pulse Rate [ Anterior Bilateral Throughout] Pulse Rate [ Apical] Respiratory 10 L 11 L 11 L Rate Respiratory Rate [Anterior Bilateral Throughout] Blood Pressure 140/68 140/68 140/68 O2 Sat by Pulse Oximetry 09/25/17 09/25/17 09/25/17 02:30 02:41 02:51 Temperature Pulse Rate 71 80 69 Pulse Rate [ Anterior Bilateral Throughout] Pulse Rate [ Apical] Respiratory 12 18 11 L Rate Respiratory Rate [Anterior Bilateral Throughout] Blood Pressure 132/63 132/63 132/63 O2 Sat by Pulse Oximetry 09/25/17 09/25/17 09/25/17 03:00 03:11 03:21 Temperature Pulse Rate 67 65 64 Pulse Rate [ Anterior Bilateral Throughout] Pulse Rate [ Apical] Respiratory 11 L 11 L 12 Rate Respiratory Rate [Anterior Bilateral Throughout] Blood Pressure 133/64 133/64 133/64 O2 Sat by Pulse Oximetry 09/25/17 09/25/17 09/25/17 03:30 03:41 03:51 Temperature Pulse Rate 66 66 62 Pulse Rate [ Anterior Bilateral Throughout] Pulse Rate [ Apical] Respiratory 12 12 11 L Rate Respiratory Rate [Anterior Bilateral Throughout] Blood Pressure 126/63 126/63 126/63 O2 Sat by Pulse Oximetry 09/25/17 09/25/17 09/25/17 04:00 04:11 04:21 Temperature 98.3 F Pulse Rate 62 60 61 Pulse Rate [ Anterior Bilateral Throughout] Pulse Rate [ 65 Apical] Respiratory 12 12 14 Rate Respiratory Rate [Anterior Bilateral Throughout] Blood Pressure 124/59 124/59 124/59 O2 Sat by Pulse Oximetry 09/25/17 09/25/17 09/25/17 04:30 04:41 04:51 Temperature Pulse Rate 60 60 80 Pulse Rate [ Anterior Bilateral Throughout] Pulse Rate [ Apical] Respiratory 12 12 18 Rate Respiratory Rate [Anterior Bilateral Throughout] Blood Pressure 121/61 121/61 121/61 O2 Sat by Pulse Oximetry 09/25/17 09/25/17 09/25/17 05:00 05:11 05:21 Temperature Pulse Rate 77 66 64 Pulse Rate [ Anterior Bilateral Throughout] Pulse Rate [ Apical] Respiratory 17 12 12 Rate Respiratory Rate [Anterior Bilateral Throughout] Blood Pressure 141/61 141/61 141/61 O2 Sat by Pulse Oximetry 09/25/17 09/25/17 09/25/17 05:22 05:30 05:41 Temperature Pulse Rate 64 70 65 Pulse Rate [ Anterior Bilateral Throughout] Pulse Rate [ Apical] Respiratory 12 12 12 Rate Respiratory Rate [Anterior Bilateral Throughout] Blood Pressure 141/61 133/60 133/60 O2 Sat by Pulse 98 Oximetry 09/25/17 09/25/17 09/25/17 05:51 06:00 06:10 Temperature Pulse Rate 70 67 69 Pulse Rate [ Anterior Bilateral Throughout] Pulse Rate [ Apical] Respiratory 11 L 12 12 Rate Respiratory Rate [Anterior Bilateral Throughout] Blood Pressure 133/60 123/61 O2 Sat by Pulse Oximetry 09/25/17 09/25/17 09/25/17 06:20 06:30 06:42 Temperature Pulse Rate 75 94 H 82 Pulse Rate [ Anterior Bilateral Throughout] Pulse Rate [ Apical] Respiratory 12 12 17 Rate Respiratory Rate [Anterior Bilateral Throughout] Blood Pressure 123/61 123/61 123/61 O2 Sat by Pulse 98 Oximetry 09/25/17 09/25/17 09/25/17 06:54 07:00 07:10 Temperature Pulse Rate 81 90 76 Pulse Rate [ Anterior Bilateral Throughout] Pulse Rate [ Apical] Respiratory 17 13 14 Rate Respiratory Rate [Anterior Bilateral Throughout] Blood Pressure 123/61 123/61 123/61 O2 Sat by Pulse Oximetry 09/25/17 09/25/17 09/25/17 07:20 07:23 07:30 Temperature Pulse Rate 72 72 71 Pulse Rate [ 70 Anterior Bilateral Throughout] Pulse Rate [ Apical] Respiratory 12 12 Rate Respiratory 12 Rate [Anterior Bilateral Throughout] Blood Pressure 123/61 123/61 O2 Sat by Pulse 100 99 Oximetry 09/25/17 09/25/17 09/25/17 07:40 07:43 07:50 Temperature Pulse Rate 81 78 78 Pulse Rate [ 78 Anterior Bilateral Throughout] Pulse Rate [ Apical] Respiratory 24 10 L 7 L Rate Respiratory 11 L Rate [Anterior Bilateral Throughout] Blood Pressure 123/61 123/61 O2 Sat by Pulse 100 99 99 Oximetry 09/25/17 09/25/17 09/25/17 08:00 08:10 08:20 Temperature 97.8 F Pulse Rate 76 75 74 Pulse Rate [ Anterior Bilateral Throughout] Pulse Rate [ Apical] Respiratory 6 L 6 L 5 L Rate Respiratory Rate [Anterior Bilateral Throughout] Blood Pressure 138/67 138/67 138/67 O2 Sat by Pulse 97 99 100 Oximetry 09/25/17 09/25/17 09/25/17 08:30 08:40 08:50 Temperature Pulse Rate 73 73 73 Pulse Rate [ Anterior Bilateral Throughout] Pulse Rate [ Apical] Respiratory 7 L 0 L 5 L Rate Respiratory Rate [Anterior Bilateral Throughout] Blood Pressure 135/65 135/65 135/65 O2 Sat by Pulse 97 100 99 Oximetry 09/25/17 09/25/17 09/25/17 09:00 09:10 09:20 Temperature Pulse Rate 71 72 71 Pulse Rate [ Anterior Bilateral Throughout] Pulse Rate [ Apical] Respiratory 8 L 5 L 5 L Rate Respiratory Rate [Anterior Bilateral Throughout] Blood Pressure 130/63 130/63 130/63 O2 Sat by Pulse 98 100 100 Oximetry 09/25/17 09/25/17 09/25/17 09:24 09:29 09:30 Temperature Pulse Rate 71 69 69 Pulse Rate [ Anterior Bilateral Throughout] Pulse Rate [ Apical] Respiratory 7 L 11 L Rate Respiratory Rate [Anterior Bilateral Throughout] Blood Pressure 130/63 120/59 120/59 O2 Sat by Pulse 100 100 97 Oximetry 09/25/17 09/25/17 09/25/17 09:40 09:50 10:00 Temperature Pulse Rate 65 65 61 Pulse Rate [ Anterior Bilateral Throughout] Pulse Rate [ Apical] Respiratory 12 13 13 Rate Respiratory Rate [Anterior Bilateral Throughout] Blood Pressure 120/59 120/59 137/59 O2 Sat by Pulse 100 100 97 Oximetry 09/25/17 09/25/17 09/25/17 10:10 10:20 10:30 Temperature Pulse Rate 95 H 92 H 77 Pulse Rate [ Anterior Bilateral Throughout] Pulse Rate [ Apical] Respiratory 15 16 11 L Rate Respiratory Rate [Anterior Bilateral Throughout] Blood Pressure 137/59 137/59 164/73 O2 Sat by Pulse 99 100 97 Oximetry 09/25/17 09/25/17 09/25/17 10:40 10:50 11:00 Temperature Pulse Rate 74 82 89 Pulse Rate [ Anterior Bilateral Throughout] Pulse Rate [ Apical] Respiratory 11 L 18 16 Rate Respiratory Rate [Anterior Bilateral Throughout] Blood Pressure 164/73 164/73 143/83 O2 Sat by Pulse 99 99 97 Oximetry - General Appearance General appearance: appears stated age, sedated on ventilator, intubated EENT: ATNC, PERRL, mucous membranes moist Neck: JVD Respiratory: Present: Rales, Decreased Breath Sounds Cardiology: regular, S1S2 Gastrointestinal: normoactive bowel sounds Integumentary: no rash, other (+ LLE edema ) Neurologic: other (intubated, sedated ) - Lab 09/24/17 06:00 09/25/17 04:00 Most recent lab results Calcium 8.9 mg/dL (8.4-10.2) 09/25/17 04:00 Phosphorus 5.70 mg/dL (2.5-4.5) H 09/25/17 04:00 Magnesium 2.20 mg/dL (1.7-2.3) 09/25/17 04:00 Urine Sodium 10 mmol/L 09/23/17 09:26
[2017-09-25] MEDS: LASIX IV SCH (13:09)
--- NOTE | 2017-09-25 13:44 | Progress Note ---
Assessment and Plan - Patient Problems (1) Colon cancer metastasized to multiple sites Current Visit: Yes Status: Ruled-out Plan to address problem: No definite evidence of multiple metastasis to lung or liver at this point. Repeat CT of the chest was reviewed extensively with Dr. Bradford and he is not convinced at this time that the lesion in the lung is a metastatic lesion. 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 (2) Altered mental status Current Visit: Yes Status: Resolved Qualifiers: Altered mental status type: transient alteration of awareness Qualified Code(s): R40.4 - Transient alteration of awareness Plan to address problem: Patient now lethargic and poorly responsive with change in mental status and respiration. We'll transfer patient to the intensive care unit and may require intubation and ventilator supports discussed with patient's family and with the patient will increase to to proceed with plan for respiratory support keep on BiPAP for now obtain ABG pulmonary consults (3) Fever Current Visit: Yes Status: Resolved Qualifiers: Fever type: unspecified Qualified Code(s): R50.9 - Fever, unspecified Plan to address problem: Fever has now resolved afebrile the past few days (4) Hypertension Current Visit: Yes Status: Acute Qualifiers: Hypertension type: essential hypertension Qualified Code(s): I10 - Essential (primary) hypertension Plan to address problem: Blood pressures is marginal with hold all blood pressure medication at this point (5) Type 2 diabetes mellitus without complications Current Visit: Yes Status: Acute Plan to address problem: Patient reported with hyperglycemia will adjust current coverage with long- acting insulin and sliding scale coverage (6) Deep vein blood clot of left lower extremity Current Visit: Yes Status: Acute Plan to address problem: Patient now status post placement of IVC filter due to new onset of lower GI bleed ,anticoagulation now on hold (7) Anemia Current Visit: Yes Status: Acute Qualifiers: Iron deficiency anemia type: chronic blood loss Plan to address problem: Hemoglobin noted is fairly stable posttransfusion with 2 units of Cells continue to monitor hemoglobin (8) Abdominal pain Current Visit: Yes Status: Acute Qualifiers: Abdominal location: upper abdomen, unspecified Qualified Code(s): R10.10 - Upper abdominal pain, unspecified Plan to address problem: Nausea vomiting subsided . We need to start on tube feeding after patient is intubated we'll continue with TPN at this point (9) Lower GI bleed Current Visit: Yes Status: Acute Plan to address problem: GI evaluation reviewed ,patient had bleeding scan which was negative and no further active lower GI bleeding reported stool reported to be brown but no active bleeding (10) Petechial rash Current Visit: Yes Status: Acute Plan to address problem: Possible localized reaction to local anaesthtic agent will observe closely and watch for any systemic component to this localized rash will also recheck platelet count as well as CBC (11) Abnormal liver function test Current Visit: Yes Status: Acute Plan to address problem: Abnormal liver function tests observed . Slight improvement noted since yesterday in transaminases level will continue to monitor. (12) Respiratory failure requiring intubation Current Visit: Yes Status: Acute Plan to address problem: Respiratory failure with hypoxia patient now on full ventilator support due to worsening respiratory status and hypoxia . Discussed with patient's and his three brothers by conference call on the telephone ,explained new changes in condition and plan of care full support (13) Acute kidney injury Current Visit: Yes Status: Acute Subjective Date of service: 09/25/17 Principal diagnosis: Acute VTE (P.E. & DVT's); Acute Hypoxemic Resp Failure: Acute GI Bleed Interval history: Patient seen and examined chart reviewed, patient is on the ventilator orally intubated. No further agitation reported this morning patient has remained without fever over the last 2 days. Objective - Exam Narrative Exam: GENERAL: On ventilator orally intubated sedated HEENT: Mucous membrane is moist, pharynx is clear. NECK: [No JVD, no thyroid enlargement and no lymphadenopathy.] CHEST/LUNGS: Reduced air exchange bibasally, a few rhonchi no wheezes no rales [No chest wall tenderness, percussion is normal, symmetrical chest wall.] HEART/CARDIOVASCULAR: Tachycardia. Second heart sounds only there is no audible murmur.] ABDOMEN: [Abdomen is soft, nondistended, multiple healed laparotomy scars no guarding, no rebound tenderness, , active bowel sounds.] SKIN: Petechia erythematous rash in the antecubital fossa extending to the upper arm, petechia also now extending into the thigh bilaterally NEURO: Lethargic responds only to name call and a few questions. EXTREMITIES: Pedal edema left lower extremity up to below the knee, no edema on the right, good peripheral pulses bilaterally no finger or toe clubbing. - Constitutional Vitals: Vital Signs - 12hr 12/17/17 12/17/17 12/17/17 01:51 02:00 02:11 Temperature Pulse Rate 67 68 68 Pulse Rate [ Anterior Bilateral Throughout] Pulse Rate [ Apical] Respiratory 11 L 10 L 11 L Rate Respiratory Rate [Anterior Bilateral Throughout] Blood Pressure 141/70 140/68 140/68 O2 Sat by Pulse Oximetry 09/25/17 09/25/17 09/25/17 02:21 02:30 02:41 Temperature Pulse Rate 74 71 80 Pulse Rate [ Anterior Bilateral Throughout] Pulse Rate [ Apical] Respiratory 11 L 12 18 Rate Respiratory Rate [Anterior Bilateral Throughout] Blood Pressure 140/68 132/63 132/63 O2 Sat by Pulse Oximetry 09/25/17 09/25/17 09/25/17 02:51 03:00 03:11 Temperature Pulse Rate 69 67 65 Pulse Rate [ Anterior Bilateral Throughout] Pulse Rate [ Apical] Respiratory 11 L 11 L 11 L Rate Respiratory Rate [Anterior Bilateral Throughout] Blood Pressure 132/63 133/64 133/64 O2 Sat by Pulse Oximetry 09/25/17 09/25/17 09/25/17 03:21 03:30 03:41 Temperature Pulse Rate 64 66 66 Pulse Rate [ Anterior Bilateral Throughout] Pulse Rate [ Apical] Respiratory 12 12 12 Rate Respiratory Rate [Anterior Bilateral Throughout] Blood Pressure 133/64 126/63 126/63 O2 Sat by Pulse Oximetry 09/25/17 09/25/17 09/25/17 03:51 04:00 04:11 Temperature 98.3 F Pulse Rate 62 62 60 Pulse Rate [ Anterior Bilateral Throughout] Pulse Rate [ 65 Apical] Respiratory 11 L 12 12 Rate Respiratory Rate [Anterior Bilateral Throughout] Blood Pressure 126/63 124/59 124/59 O2 Sat by Pulse Oximetry 09/25/17 09/25/17 09/25/17 04:21 04:30 04:41 Temperature Pulse Rate 61 60 60 Pulse Rate [ Anterior Bilateral Throughout] Pulse Rate [ Apical] Respiratory 14 12 12 Rate Respiratory Rate [Anterior Bilateral Throughout] Blood Pressure 124/59 121/61 121/61 O2 Sat by Pulse Oximetry 09/25/17 09/25/17 09/25/17 04:51 05:00 05:11 Temperature Pulse Rate 80 77 66 Pulse Rate [ Anterior Bilateral Throughout] Pulse Rate [ Apical] Respiratory 18 17 12 Rate Respiratory Rate [Anterior Bilateral Throughout] Blood Pressure 121/61 141/61 141/61 O2 Sat by Pulse Oximetry 09/25/17 09/25/17 09/25/17 05:21 05:22 05:30 Temperature Pulse Rate 64 64 70 Pulse Rate [ Anterior Bilateral Throughout] Pulse Rate [ Apical] Respiratory 12 12 12 Rate Respiratory Rate [Anterior Bilateral Throughout] Blood Pressure 141/61 141/61 133/60 O2 Sat by Pulse 98 Oximetry 09/25/17 09/25/17 09/25/17 05:41 05:51 06:00 Temperature Pulse Rate 65 70 67 Pulse Rate [ Anterior Bilateral Throughout] Pulse Rate [ Apical] Respiratory 12 11 L 12 Rate Respiratory Rate [Anterior Bilateral Throughout] Blood Pressure 133/60 133/60 123/61 O2 Sat by Pulse Oximetry 09/25/17 09/25/17 09/25/17 06:10 06:20 06:30 Temperature Pulse Rate 69 75 94 H Pulse Rate [ Anterior Bilateral Throughout] Pulse Rate [ Apical] Respiratory 12 12 12 Rate Respiratory Rate [Anterior Bilateral Throughout] Blood Pressure 123/61 123/61 O2 Sat by Pulse 98 Oximetry 09/25/17 09/25/17 09/25/17 06:42 06:54 07:00 Temperature Pulse Rate 82 81 90 Pulse Rate [ Anterior Bilateral Throughout] Pulse Rate [ Apical] Respiratory 17 17 13 Rate Respiratory Rate [Anterior Bilateral Throughout] Blood Pressure 123/61 123/61 123/61 O2 Sat by Pulse Oximetry 09/25/17 09/25/17 09/25/17 07:10 07:20 07:23 Temperature Pulse Rate 76 72 72 Pulse Rate [ 70 Anterior Bilateral Throughout] Pulse Rate [ Apical] Respiratory 14 12 Rate Respiratory 12 Rate [Anterior Bilateral Throughout] Blood Pressure 123/61 123/61 O2 Sat by Pulse 100 Oximetry 09/25/17 09/25/17 09/25/17 07:30 07:40 07:43 Temperature Pulse Rate 71 81 78 Pulse Rate [ 78 Anterior Bilateral Throughout] Pulse Rate [ Apical] Respiratory 12 24 10 L Rate Respiratory 11 L Rate [Anterior Bilateral Throughout] Blood Pressure 123/61 123/61 O2 Sat by Pulse 99 100 99 Oximetry 09/25/17 09/25/17 09/25/17 07:50 08:00 08:10 Temperature 97.8 F Pulse Rate 78 76 75 Pulse Rate [ Anterior Bilateral Throughout] Pulse Rate [ Apical] Respiratory 7 L 6 L 6 L Rate Respiratory Rate [Anterior Bilateral Throughout] Blood Pressure 123/61 138/67 138/67 O2 Sat by Pulse 99 97 99 Oximetry 09/25/17 09/25/17 09/25/17 08:20 08:30 08:40 Temperature Pulse Rate 74 73 73 Pulse Rate [ Anterior Bilateral Throughout] Pulse Rate [ Apical] Respiratory 5 L 7 L 0 L Rate Respiratory Rate [Anterior Bilateral Throughout] Blood Pressure 138/67 135/65 135/65 O2 Sat by Pulse 100 97 100 Oximetry 09/25/17 09/25/17 09/25/17 08:50 09:00 09:10 Temperature Pulse Rate 73 71 72 Pulse Rate [ Anterior Bilateral Throughout] Pulse Rate [ Apical] Respiratory 5 L 8 L 5 L Rate Respiratory Rate [Anterior Bilateral Throughout] Blood Pressure 135/65 130/63 130/63 O2 Sat by Pulse 99 98 100 Oximetry 09/25/17 09/25/17 09/25/17 09:20 09:24 09:29 Temperature Pulse Rate 71 71 69 Pulse Rate [ Anterior Bilateral Throughout] Pulse Rate [ Apical] Respiratory 5 L 7 L Rate Respiratory Rate [Anterior Bilateral Throughout] Blood Pressure 130/63 130/63 120/59 O2 Sat by Pulse 100 100 100 Oximetry 09/25/17 09/25/17 09/25/17 09:30 09:40 09:50 Temperature Pulse Rate 69 65 65 Pulse Rate [ Anterior Bilateral Throughout] Pulse Rate [ Apical] Respiratory 11 L 12 13 Rate Respiratory Rate [Anterior Bilateral Throughout] Blood Pressure 120/59 120/59 120/59 O2 Sat by Pulse 97 100 100 Oximetry 09/25/17 09/25/17 09/25/17 10:00 10:10 10:20 Temperature Pulse Rate 61 95 H 92 H Pulse Rate [ Anterior Bilateral Throughout] Pulse Rate [ Apical] Respiratory 13 15 16 Rate Respiratory Rate [Anterior Bilateral Throughout] Blood Pressure 137/59 137/59 137/59 O2 Sat by Pulse 97 99 100 Oximetry 09/25/17 09/25/17 09/25/17 10:30 10:40 10:50 Temperature Pulse Rate 77 74 82 Pulse Rate [ Anterior Bilateral Throughout] Pulse Rate [ Apical] Respiratory 11 L 11 L 18 Rate Respiratory Rate [Anterior Bilateral Throughout] Blood Pressure 164/73 164/73 164/73 O2 Sat by Pulse 97 99 99 Oximetry 09/25/17 09/25/17 09/25/17 11:00 12:00 13:25 Temperature 98.5 F Pulse Rate 89 71 Pulse Rate [ 73 Anterior Bilateral Throughout] Pulse Rate [ Apical] Respiratory 16 Rate Respiratory 12 Rate [Anterior Bilateral Throughout] Blood Pressure 143/83 155/69 O2 Sat by Pulse 97 100 Oximetry - Labs CBC & Chem 7: 09/24/17 06:00 09/25/17 04:00 Labs: Abnormal lab results 09/24/17 09/24/17 09/24/17 Range/Units 13:55 14:04 19:45 POC ABG pH 7.330 L (7.35-7.45) Sodium (137-145) mmol/L Chloride (98-107) mmol/L BUN (9-20) mg/dL Creatinine (0.8-1.5) mg/dL Glucose (75-100) mg/dL POC Glucose 351 H 265 H (70-105) Phosphorus (2.5-4.5) mg/dL 09/25/17 09/25/17 09/25/17 Range/Units 00:50 04:00 05:49 POC ABG pH (7.35-7.45) Sodium 135 L (137-145) mmol/L Chloride 95.7 L (98-107) mmol/L BUN 125 H (9-20) mg/dL Creatinine 2.1 H (0.8-1.5) mg/dL Glucose 360 H (75-100) mg/dL POC Glucose 328 H 296 H (70-105) Phosphorus 5.70 H (2.5-4.5) mg/dL 09/25/17 Range/Units 10:56 POC ABG pH (7.35-7.45) Sodium (137-145) mmol/L Chloride (98-107) mmol/L BUN (9-20) mg/dL Creatinine (0.8-1.5) mg/dL Glucose (75-100) mg/dL POC Glucose 379 H (70-105) Phosphorus (2.5-4.5) mg/dL
--- NOTE | 2017-09-25 14:17 | Progress Note ---
Assessment and Plan - Patient Problems (1) Deep vein blood clot of left lower extremity Current Visit: Yes Status: Acute Plan to address problem: see below. no new issues at this time. See notes. (2) Colon cancer metastasized to multiple sites Current Visit: Yes Status: Ruled-out Plan to address problem: see notes. eventually will get chemo/xrt. once stable. (3) Lung mass Current Visit: Yes Status: Acute Plan to address problem: see notes. (4) Pulmonary embolism Current Visit: Yes Status: Acute Plan to address problem: anticoags. see notes. no more anti coags. (5) DVT (deep venous thrombosis) Current Visit: Yes Status: Acute Qualifiers: Laterality: left Plan to address problem: anti coags. no more. (6) Anemia Current Visit: Yes Status: Acute Qualifiers: Iron deficiency anemia type: chronic blood loss Plan to address problem: see notes. will transfuse. will repeat labs. stable (7) Skin macule or macular rash Current Visit: Yes Status: Acute Plan to address problem: Most likely due to contrast use during procedure. Tx is steroid. Improved. Subjective Date of service: 09/25/17 Principal diagnosis: Acute VTE (P.E. & DVT's); Acute Hypoxemic Resp Failure: Acute GI Bleed Interval history: Patient seen/examined, record reviewed, case d/w his daughter at the bed side.No procedure was done today. I have d/w DR BOYD today, and he will see patient .He is confused today, with some lethargy. Patient seen/examined, resting in bed, labs reviewed, notes reviewed. DR BOYD not available yet, so i am seeing patient today.No new issues at this time Patient seen/resting in bed, still some what confused.Notes reviewed, Lung lesion now ? for mets.I have updated DR BOYD today Patient seen/examined, labs reviewed.H/H 6.6 , I have spoken to his nurse, and will draw from a non heparin line Stat. Patient seen, resting in bed, labs reviewed. I have d/w the nurse, and will order PRBC. Patient seen/examined, resting in bed, labs reviewed, case d/w patient and family at the bed side. He is s/p 2uPRBC transfusion.He is scheduled for IVC Filter placement, after which he can be transitioned to oral anticoagulation. eloquis. he should be able to transfer to chair, and back to bed once Heparin in therapeutic range. Patient seen/examined, labs reviewed, case d/w patient, and family.IVC filter not placed, so patient restarted on his Heparin.once placed, then patient can be ab;e to move around. Patient seen/examined, ,resting in bed, family at the bed side, IVC filter placement was not done. for some unknown reason..I have discussed with DR Mirza this morning that once Filter placed, he may be d/c home to start chemo. Patient seen/examined, case d/w patient / at the bed side.I will speak with IR about Filter placement, so patient can proceed with chemo. Patient seen/examined, resting in bed, record reviewed, No IVC filter yet. Patient seen/examined, case d/w him, and family. I had spoken to DR LOJA, and the conclusion was that patient will be switched to LMWH tx dose for probably indefinite, but if any surgical procedure is intended, or there is another thrombotic event, then he will get an IVC filter.I will d/w DR Mirza tomorrow, and if he can be d/c soon so he can get ready for chemo. Patient seen/examined, resting in bed, appears slightly lethargic, at the bed side, case d/w both, and with the primary team, Dr Lewis. Patient having GI bleed actively, heparin on hold now for 2days. patient also having projectile emesis bile like. I think that due to this new development, Patient can not be on anticoagulation,and he still remains pro thrombotic. This will make him a candidate for an alternative measure such as an IVC filter..Any major procedure such as GI scope can can even result in thrombotic event.He will need abdominal imaging also to r/o obstruction. Patient seen/examined, resting in bed, notes reviewed, patient asleep.I have reviewed notes , and glad that DR Longoria has concord with recommendation for IVC Filter.. patient seen/examined, notes reviewed. IVC filter placement completed, as per patient, who is more alert at this time. patient seen/examined , resting in bed, vss, afebrile, some what lethargic, family at the bed side.Skin of the extremity, with diffuse purpura., started post surgery.,almost like vasculitis.may need steroid trial., because this may infact be due to contrast ,which may also be delayed. Patient seen/examined, in the ICU center where he was transfered due to resp distress.I had suggested steroid, since this is looking more like contrast induced, , he now has acute renal failure in part due to same reason of contrast , and perhaps due to hypotension. I have discussed with DR Poe, and he will go ahead and order some steroid, and renal consult, and some insulin coverage. Patient seen/examined, resting in bed, on vent support, at the bed side, case d/w her. I have also reviewed others notes.He will need a new lab draw for tomorrow, and will follow you. Patent seen/examined, resting in bed, labs reviewed, case d/w his at the bed side. Patient seen/examined, agitated on the vent. at the bed side, case d/w her. I have spoken to the Pulm , and plan is to extubate today. Objective - Constitutional Vitals: Vital Signs - 12hr 09/25/17 09/25/17 09/25/17 02:21 02:30 02:41 Temperature Pulse Rate 74 71 80 Pulse Rate [ Anterior Bilateral Throughout] Pulse Rate [ Apical] Respiratory 11 L 12 18 Rate Respiratory Rate [Anterior Bilateral Throughout] Blood Pressure 140/68 132/63 132/63 O2 Sat by Pulse Oximetry 09/25/17 09/25/17 09/25/17 02:51 03:00 03:11 Temperature Pulse Rate 69 67 65 Pulse Rate [ Anterior Bilateral Throughout] Pulse Rate [ Apical] Respiratory 11 L 11 L 11 L Rate Respiratory Rate [Anterior Bilateral Throughout] Blood Pressure 132/63 133/64 133/64 O2 Sat by Pulse Oximetry 09/25/17 09/25/17 09/25/17 03:21 03:30 03:41 Temperature Pulse Rate 64 66 66 Pulse Rate [ Anterior Bilateral Throughout] Pulse Rate [ Apical] Respiratory 12 12 12 Rate Respiratory Rate [Anterior Bilateral Throughout] Blood Pressure 133/64 126/63 126/63 O2 Sat by Pulse Oximetry 09/25/17 09/25/17 09/25/17 03:51 04:00 04:11 Temperature 98.3 F Pulse Rate 62 62 60 Pulse Rate [ Anterior Bilateral Throughout] Pulse Rate [ 65 Apical] Respiratory 11 L 12 12 Rate Respiratory Rate [Anterior Bilateral Throughout] Blood Pressure 126/63 124/59 124/59 O2 Sat by Pulse Oximetry 09/25/17 09/25/17 09/25/17 04:21 04:30 04:41 Temperature Pulse Rate 61 60 60 Pulse Rate [ Anterior Bilateral Throughout] Pulse Rate [ Apical] Respiratory 14 12 12 Rate Respiratory Rate [Anterior Bilateral Throughout] Blood Pressure 124/59 121/61 121/61 O2 Sat by Pulse Oximetry 09/25/17 09/25/17 09/25/17 04:51 05:00 05:11 Temperature Pulse Rate 80 77 66 Pulse Rate [ Anterior Bilateral Throughout] Pulse Rate [ Apical] Respiratory 18 17 12 Rate Respiratory Rate [Anterior Bilateral Throughout] Blood Pressure 121/61 141/61 141/61 O2 Sat by Pulse Oximetry 09/25/17 09/25/17 09/25/17 05:21 05:22 05:30 Temperature Pulse Rate 64 64 70 Pulse Rate [ Anterior Bilateral Throughout] Pulse Rate [ Apical] Respiratory 12 12 12 Rate Respiratory Rate [Anterior Bilateral Throughout] Blood Pressure 141/61 141/61 133/60 O2 Sat by Pulse 98 Oximetry 09/25/17 09/25/17 09/25/17 05:41 05:51 06:00 Temperature Pulse Rate 65 70 67 Pulse Rate [ Anterior Bilateral Throughout] Pulse Rate [ Apical] Respiratory 12 11 L 12 Rate Respiratory Rate [Anterior Bilateral Throughout] Blood Pressure 133/60 133/60 123/61 O2 Sat by Pulse Oximetry 09/25/17 09/25/17 09/25/17 06:10 06:20 06:30 Temperature Pulse Rate 69 75 94 H Pulse Rate [ Anterior Bilateral Throughout] Pulse Rate [ Apical] Respiratory 12 12 12 Rate Respiratory Rate [Anterior Bilateral Throughout] Blood Pressure 123/61 123/61 O2 Sat by Pulse 98 Oximetry 09/25/17 09/25/17 09/25/17 06:42 06:54 07:00 Temperature Pulse Rate 82 81 90 Pulse Rate [ Anterior Bilateral Throughout] Pulse Rate [ Apical] Respiratory 17 17 13 Rate Respiratory Rate [Anterior Bilateral Throughout] Blood Pressure 123/61 123/61 123/61 O2 Sat by Pulse Oximetry 09/25/17 09/25/17 09/25/17 07:10 07:20 07:23 Temperature Pulse Rate 76 72 72 Pulse Rate [ 70 Anterior Bilateral Throughout] Pulse Rate [ Apical] Respiratory 14 12 Rate Respiratory 12 Rate [Anterior Bilateral Throughout] Blood Pressure 123/61 123/61 O2 Sat by Pulse 100 Oximetry 09/25/17 09/25/17 09/25/17 07:30 07:40 07:43 Temperature Pulse Rate 71 81 78 Pulse Rate [ 78 Anterior Bilateral Throughout] Pulse Rate [ Apical] Respiratory 12 24 10 L Rate Respiratory 11 L Rate [Anterior Bilateral Throughout] Blood Pressure 123/61 123/61 O2 Sat by Pulse 99 100 99 Oximetry 09/25/17 09/25/17 09/25/17 07:50 08:00 08:10 Temperature 97.8 F Pulse Rate 78 76 75 Pulse Rate [ Anterior Bilateral Throughout] Pulse Rate [ Apical] Respiratory 7 L 6 L 6 L Rate Respiratory Rate [Anterior Bilateral Throughout] Blood Pressure 123/61 138/67 138/67 O2 Sat by Pulse 99 97 99 Oximetry 09/25/17 09/25/17 09/25/17 08:20 08:30 08:40 Temperature Pulse Rate 74 73 73 Pulse Rate [ Anterior Bilateral Throughout] Pulse Rate [ Apical] Respiratory 5 L 7 L 0 L Rate Respiratory Rate [Anterior Bilateral Throughout] Blood Pressure 138/67 135/65 135/65 O2 Sat by Pulse 100 97 100 Oximetry 09/25/17 09/25/17 09/25/17 08:50 09:00 09:10 Temperature Pulse Rate 73 71 72 Pulse Rate [ Anterior Bilateral Throughout] Pulse Rate [ Apical] Respiratory 5 L 8 L 5 L Rate Respiratory Rate [Anterior Bilateral Throughout] Blood Pressure 135/65 130/63 130/63 O2 Sat by Pulse 99 98 100 Oximetry 09/25/17 09/25/17 09/25/17 09:20 09:24 09:29 Temperature Pulse Rate 71 71 69 Pulse Rate [ Anterior Bilateral Throughout] Pulse Rate [ Apical] Respiratory 5 L 7 L Rate Respiratory Rate [Anterior Bilateral Throughout] Blood Pressure 130/63 130/63 120/59 O2 Sat by Pulse 100 100 100 Oximetry 09/25/17 09/25/17 09/25/17 09:30 09:40 09:50 Temperature Pulse Rate 69 65 65 Pulse Rate [ Anterior Bilateral Throughout] Pulse Rate [ Apical] Respiratory 11 L 12 13 Rate Respiratory Rate [Anterior Bilateral Throughout] Blood Pressure 120/59 120/59 120/59 O2 Sat by Pulse 97 100 100 Oximetry 09/25/17 09/25/17 09/25/17 10:00 10:10 10:20 Temperature Pulse Rate 61 95 H 92 H Pulse Rate [ Anterior Bilateral Throughout] Pulse Rate [ Apical] Respiratory 13 15 16 Rate Respiratory Rate [Anterior Bilateral Throughout] Blood Pressure 137/59 137/59 137/59 O2 Sat by Pulse 97 99 100 Oximetry 09/25/17 09/25/17 09/25/17 10:30 10:40 10:50 Temperature Pulse Rate 77 74 82 Pulse Rate [ Anterior Bilateral Throughout] Pulse Rate [ Apical] Respiratory 11 L 11 L 18 Rate Respiratory Rate [Anterior Bilateral Throughout] Blood Pressure 164/73 164/73 164/73 O2 Sat by Pulse 97 99 99 Oximetry 09/25/17 09/25/17 09/25/17 11:00 12:00 13:25 Temperature 98.5 F Pulse Rate 89 71 Pulse Rate [ 73 Anterior Bilateral Throughout] Pulse Rate [ Apical] Respiratory 16 Rate Respiratory 12 Rate [Anterior Bilateral Throughout] Blood Pressure 143/83 155/69 O2 Sat by Pulse 97 100 Oximetry 09/25/17 09/25/17 13:43 14:06 Temperature Pulse Rate 102 H Pulse Rate [ 87 Anterior Bilateral Throughout] Pulse Rate [ Apical] Respiratory 36 H Rate Respiratory 29 H Rate [Anterior Bilateral Throughout] Blood Pressure O2 Sat by Pulse 98 Oximetry General appearance: Present: mild distress - EENT Eyes: PERRL, EOM intact ENT: hearing intact, clear oral mucosa Ears: bilateral: normal - Neck Neck: supple, normal ROM - Respiratory Respiratory: bilateral: other (on the vent for now.) - Breasts Breasts: normal - Cardiovascular Rhythm: regular Heart Sounds: Present: S1 & S2. Absent: gallop, rub Extremities: pulses intact, No edema, normal color, Full ROM - Gastrointestinal General gastrointestinal: Present: soft, non-tender, non-distended, normal bowel sounds Rectal Exam: deferred - Genitourinary Male genitourinary: deferred - Integumentary Integumentary: clear, warm, dry - Musculoskeletal Musculoskeletal: 1, strength equal bilaterally - Neurologic Neurologic: moves all extremities - Labs CBC & Chem 7: 09/24/17 06:00 09/25/17 04:00 Labs: Abnormal lab results 09/24/17 09/24/17 09/25/17 Range/Units 14:04 19:45 00:50 POC ABG pH 7.330 L (7.35-7.45) Sodium (137-145) mmol/L Chloride (98-107) mmol/L BUN (9-20) mg/dL Creatinine (0.8-1.5) mg/dL Glucose (75-100) mg/dL POC Glucose 265 H 328 H (70-105) Phosphorus (2.5-4.5) mg/dL 09/25/17 09/25/17 09/25/17 Range/Units 04:00 05:49 10:56 POC ABG pH (7.35-7.45) Sodium 135 L (137-145) mmol/L Chloride 95.7 L (98-107) mmol/L BUN 125 H (9-20) mg/dL Creatinine 2.1 H (0.8-1.5) mg/dL Glucose 360 H (75-100) mg/dL POC Glucose 296 H 379 H (70-105) Phosphorus 5.70 H (2.5-4.5) mg/dL
--- NOTE | 2017-09-25 16:28 | Progress Note ---
Assessment and Plan Acute Hypoxemic Respiratory Failure Acute VTE Sepsis Syndrome H/O Colon CA (? recurrent) Acute GI Bleed RACHEL Contrast nephropathy Anemia -SBT today, get weaning parameters, goal to extubate; support with NIPPV if indicated -adjust seroquel dose re: agitation / delirium - continue to avoid benzodiazepines - wean oxygen for Sats > 92% - s/p IVC filter - continue bronchodilators and pulmonary hygeine per RT - continue empiric AB's - continue GI prophylaxis - steroid taper at this point (improving azotemia) - enteric nutrition as tolerated (order placed today) - continue aspiration precautions - continue other care per attending / other consultants ...care plan discussed with at bedside ....re-evaluate in am & prn ...35' CCT - Patient Problems (1) Respiratory failure requiring intubation Current Visit: Yes Status: Acute Subjective Date of service: 09/25/17 Principal diagnosis: Acute VTE (P.E. & DVT's); Acute Hypoxemic Resp Failure: Acute GI Bleed Interval history: Seen and examined. Vitals, labs, medications, chart reviewed. Very agitated, tachypnic, tachycardic and hypertensive. at the bedside. Discussed with RN and RT I suspect the ETT is the cause for agitation. Talked with the patient at the bedside, and explained what we are doing. Place on SBT and my goal is to wean to extubate today. Hold TPN for now, start enteric feeding via small bowel feeding tube Objective - Exam Narrative Exam: GENERAL: On ventilator orally intubated , extreme agitation HEENT: Mucous membrane is moist, pharynx is clear. NECK: No JVD, no thyroid enlargement and no lymphadenopathy CHEST/LUNGS: Reduced air exchange bibasally, a few rhonchi no wheezes no rales [No chest wall tenderness, percussion is normal, symmetrical chest wall.] HEART/CARDIOVASCULAR: Tachycardia. Second heart sounds only there is no audible murmur ABDOMEN: [Abdomen is soft, nondistended, multiple healed laparotomy scars no guarding, no rebound tenderness, , active bowel sounds SKIN: Petechia erythematous rash in the antecubital fossa extending to the upper arm, petechia also now extending into the thigh bilaterally NEURO: Lethargic responds only to name call and a few questions. EXTREMITIES: Pedal edema left lower extremity up to below the knee, no edema on the right, good peripheral pulses bilaterally no finger or toe clubbing. Vital Signs - 12hr 09/25/17 09/25/17 09/25/17 04:30 04:41 04:51 Temperature Pulse Rate 60 60 80 Pulse Rate [ Anterior Bilateral Throughout] Respiratory 12 12 18 Rate Respiratory Rate [Anterior Bilateral Throughout] Blood Pressure 121/61 121/61 121/61 O2 Sat by Pulse Oximetry 09/25/17 09/25/17 09/25/17 05:00 05:11 05:21 Temperature Pulse Rate 77 66 64 Pulse Rate [ Anterior Bilateral Throughout] Respiratory 17 12 12 Rate Respiratory Rate [Anterior Bilateral Throughout] Blood Pressure 141/61 141/61 141/61 O2 Sat by Pulse Oximetry 09/25/17 09/25/17 09/25/17 05:22 05:30 05:41 Temperature Pulse Rate 64 70 65 Pulse Rate [ Anterior Bilateral Throughout] Respiratory 12 12 12 Rate Respiratory Rate [Anterior Bilateral Throughout] Blood Pressure 141/61 133/60 133/60 O2 Sat by Pulse 98 Oximetry 09/25/17 09/25/17 09/25/17 05:51 06:00 06:10 Temperature Pulse Rate 70 67 69 Pulse Rate [ Anterior Bilateral Throughout] Respiratory 11 L 12 12 Rate Respiratory Rate [Anterior Bilateral Throughout] Blood Pressure 133/60 123/61 O2 Sat by Pulse Oximetry 09/25/17 09/25/17 09/25/17 06:20 06:30 06:42 Temperature Pulse Rate 75 94 H 82 Pulse Rate [ Anterior Bilateral Throughout] Respiratory 12 12 17 Rate Respiratory Rate [Anterior Bilateral Throughout] Blood Pressure 123/61 123/61 123/61 O2 Sat by Pulse 98 Oximetry 09/25/17 09/25/17 09/25/17 06:54 07:00 07:10 Temperature Pulse Rate 81 90 76 Pulse Rate [ Anterior Bilateral Throughout] Respiratory 17 13 14 Rate Respiratory Rate [Anterior Bilateral Throughout] Blood Pressure 123/61 123/61 123/61 O2 Sat by Pulse Oximetry 09/25/17 09/25/17 09/25/17 07:20 07:23 07:30 Temperature Pulse Rate 72 72 71 Pulse Rate [ 70 Anterior Bilateral Throughout] Respiratory 12 12 Rate Respiratory 12 Rate [Anterior Bilateral Throughout] Blood Pressure 123/61 123/61 O2 Sat by Pulse 100 99 Oximetry 09/25/17 09/25/17 09/25/17 07:40 07:43 07:50 Temperature Pulse Rate 81 78 78 Pulse Rate [ 78 Anterior Bilateral Throughout] Respiratory 24 10 L 7 L Rate Respiratory 11 L Rate [Anterior Bilateral Throughout] Blood Pressure 123/61 123/61 O2 Sat by Pulse 100 99 99 Oximetry 09/25/17 09/25/17 09/25/17 08:00 08:10 08:20 Temperature 97.8 F Pulse Rate 76 75 74 Pulse Rate [ Anterior Bilateral Throughout] Respiratory 6 L 6 L 5 L Rate Respiratory Rate [Anterior Bilateral Throughout] Blood Pressure 138/67 138/67 138/67 O2 Sat by Pulse 97 99 100 Oximetry 09/25/17 09/25/17 09/25/17 08:30 08:40 08:50 Temperature Pulse Rate 73 73 73 Pulse Rate [ Anterior Bilateral Throughout] Respiratory 7 L 0 L 5 L Rate Respiratory Rate [Anterior Bilateral Throughout] Blood Pressure 135/65 135/65 135/65 O2 Sat by Pulse 97 100 99 Oximetry 09/25/17 09/25/17 09/25/17 09:00 09:10 09:20 Temperature Pulse Rate 71 72 71 Pulse Rate [ Anterior Bilateral Throughout] Respiratory 8 L 5 L 5 L Rate Respiratory Rate [Anterior Bilateral Throughout] Blood Pressure 130/63 130/63 130/63 O2 Sat by Pulse 98 100 100 Oximetry 09/25/17 09/25/17 09/25/17 09:24 09:29 09:30 Temperature Pulse Rate 71 69 69 Pulse Rate [ Anterior Bilateral Throughout] Respiratory 7 L 11 L Rate Respiratory Rate [Anterior Bilateral Throughout] Blood Pressure 130/63 120/59 120/59 O2 Sat by Pulse 100 100 97 Oximetry 09/25/17 09/25/17 09/25/17 09:40 09:50 10:00 Temperature Pulse Rate 65 65 61 Pulse Rate [ Anterior Bilateral Throughout] Respiratory 12 13 13 Rate Respiratory Rate [Anterior Bilateral Throughout] Blood Pressure 120/59 120/59 137/59 O2 Sat by Pulse 100 100 97 Oximetry 09/25/17 09/25/17 09/25/17 10:10 10:20 10:30 Temperature Pulse Rate 95 H 92 H 77 Pulse Rate [ Anterior Bilateral Throughout] Respiratory 15 16 11 L Rate Respiratory Rate [Anterior Bilateral Throughout] Blood Pressure 137/59 137/59 164/73 O2 Sat by Pulse 99 100 97 Oximetry 09/25/17 09/25/17 09/25/17 10:40 10:50 11:00 Temperature Pulse Rate 74 82 89 Pulse Rate [ Anterior Bilateral Throughout] Respiratory 11 L 18 16 Rate Respiratory Rate [Anterior Bilateral Throughout] Blood Pressure 164/73 164/73 143/83 O2 Sat by Pulse 99 99 97 Oximetry 09/25/17 09/25/17 09/25/17 11:10 11:20 11:30 Temperature Pulse Rate 78 78 74 Pulse Rate [ Anterior Bilateral Throughout] Respiratory 12 11 L 11 L Rate Respiratory Rate [Anterior Bilateral Throughout] Blood Pressure 143/83 143/83 163/71 O2 Sat by Pulse 99 100 98 Oximetry 09/25/17 09/25/17 09/25/17 11:40 11:50 12:00 Temperature 98.5 F Pulse Rate 73 71 70 Pulse Rate [ Anterior Bilateral Throughout] Respiratory 12 12 12 Rate Respiratory Rate [Anterior Bilateral Throughout] Blood Pressure 163/71 163/71 152/70 O2 Sat by Pulse 100 100 98 Oximetry 09/25/17 09/25/17 09/25/17 12:10 12:20 12:30 Temperature Pulse Rate 68 97 H 82 Pulse Rate [ Anterior Bilateral Throughout] Respiratory 12 17 11 L Rate Respiratory Rate [Anterior Bilateral Throughout] Blood Pressure 152/70 152/70 152/70 O2 Sat by Pulse 100 99 100 Oximetry 09/25/17 09/25/17 09/25/17 12:40 12:50 13:00 Temperature Pulse Rate 93 H 90 78 Pulse Rate [ Anterior Bilateral Throughout] Respiratory 11 L 14 11 L Rate Respiratory Rate [Anterior Bilateral Throughout] Blood Pressure 152/70 152/70 152/70 O2 Sat by Pulse 72 L Oximetry 09/25/17 09/25/17 09/25/17 13:10 13:20 13:25 Temperature Pulse Rate 75 72 71 Pulse Rate [ 73 Anterior Bilateral Throughout] Respiratory 11 L 12 Rate Respiratory 12 Rate [Anterior Bilateral Throughout] Blood Pressure 152/70 152/70 155/69 O2 Sat by Pulse 100 Oximetry 09/25/17 09/25/17 09/25/17 13:30 13:40 13:43 Temperature Pulse Rate 87 71 Pulse Rate [ 87 Anterior Bilateral Throughout] Respiratory 16 23 Rate Respiratory 29 H Rate [Anterior Bilateral Throughout] Blood Pressure 155/69 197/85 O2 Sat by Pulse 100 100 Oximetry 09/25/17 09/25/17 09/25/17 13:50 14:00 14:06 Temperature Pulse Rate 80 106 H 102 H Pulse Rate [ Anterior Bilateral Throughout] Respiratory 32 H 16 36 H Rate Respiratory Rate [Anterior Bilateral Throughout] Blood Pressure 197/85 223/102 O2 Sat by Pulse 97 94 98 Oximetry 09/25/17 09/25/17 09/25/17 14:10 14:20 14:30 Temperature Pulse Rate 94 H 97 H 93 H Pulse Rate [ Anterior Bilateral Throughout] Respiratory 11 L 11 L 11 L Rate Respiratory Rate [Anterior Bilateral Throughout] Blood Pressure 197/85 229/80 183/78 O2 Sat by Pulse 99 95 96 Oximetry 09/25/17 09/25/17 09/25/17 14:40 14:45 14:50 Temperature Pulse Rate 93 H 90 91 H Pulse Rate [ Anterior Bilateral Throughout] Respiratory 13 40 H 14 Rate Respiratory Rate [Anterior Bilateral Throughout] Blood Pressure 183/78 183/78 183/78 O2 Sat by Pulse 98 99 100 Oximetry 09/25/17 09/25/17 09/25/17 15:00 15:05 15:10 Temperature Pulse Rate 92 H 102 H 100 H Pulse Rate [ Anterior Bilateral Throughout] Respiratory 13 35 H 22 Rate Respiratory Rate [Anterior Bilateral Throughout] Blood Pressure 180/74 180/74 180/74 O2 Sat by Pulse 95 99 99 Oximetry 09/25/17 09/25/17 09/25/17 15:20 15:30 15:35 Temperature Pulse Rate 92 H 104 H Pulse Rate [ Anterior Bilateral Throughout] Respiratory 22 17 Rate Respiratory Rate [Anterior Bilateral Throughout] Blood Pressure 180/74 209/68 O2 Sat by Pulse 99 97 96 Oximetry 09/25/17 09/25/17 09/25/17 15:40 15:50 16:00 Temperature 98.4 F Pulse Rate 93 H 86 90 Pulse Rate [ Anterior Bilateral Throughout] Respiratory 14 14 16 Rate Respiratory Rate [Anterior Bilateral Throughout] Blood Pressure 137/80 137/80 137/80 O2 Sat by Pulse 92 98 92 Oximetry Constitutional: no acute distress, other (sedated; RASS -1) Eyes: non-icteric ENT: oropharynx moist Neck: supple, no lymphadenopathy, no JVD, other (no thyromegaly) Effort: mildly labored Ascultation: Bilateral: diminished breath sounds, rales Percussion: Bilateral: not dull Cardiovascular: regular rate and rhythm, other (No Rubs / Murmurs) Gastrointestinal: normoactive bowel sounds, soft, non-tender, non-distended, other (No HSM) Integumentary: normal Extremities: no cyanosis, no edema, pulses normal, no ischemia or petechiae Neurologic: non-focal exam (grossly), unable to assess Psychiatric: anxious (during sedation vacation), other (sedated) CBC and BMP: 09/24/17 06:00 09/25/17 04:00 ABG, PT/INR, D-dimer: ABG POC ABG pH 7.330 (7.35-7.45) L 09/24/17 14:04 POC ABG pCO2 43.2 (35-45) 09/24/17 14:04 POC ABG pO2 93 (80-105) 09/24/17 14:04 POC ABG HCO3 22.8 09/24/17 14:04 POC ABG Total CO2 24 09/24/17 14:04 POC ABG O2 Sat 97 09/24/17 14:04 PT/INR, D-dimer PT 21.8 Sec. (12.2-14.9) H 08/28/17 20:01 INR 1.80 (0.87-1.13) H 08/28/17 20:01 Abnormal lab findings: Abnormal Labs 08/27/17 08/27/17 08/27/17 03:02 03:02 03:02 WBC 14.6 H RBC 3.46 L Hgb 8.4 L Hct 26.5 L MCV 77 L MCH 24 L MCHC RDW 25.8 H Lymph % (Auto) Wake % (Auto) Lymph # Wake # Baso # Seg Neutrophils % Monocytes % (Manual) 8.0 H Nucleated RBC % 3.0 H Seg Neutrophils # Monocytes # (Manual) 1.2 H PT INR APTT Heparin Anti-Xa Level POC ABG pH POC ABG pCO2 POC ABG pO2 Sodium 136 L Potassium Chloride 93.3 L Carbon Dioxide BUN 21 H Creatinine Glucose 104 H POC Glucose Calcium Phosphorus Magnesium AST ALT 62 H Alkaline Phosphatase 133 H C-Reactive Protein Total Protein 8.5 H Albumin 3.2 L Triglycerides Urine pH Vancomycin Trough Salicylates < 0.3 L Crossmatch 08/27/17 08/27/17 08/27/17 05:00 07:43 11:20 WBC RBC Hgb Hct MCV MCH MCHC RDW Lymph % (Auto) Wake % (Auto) Lymph # [place] # Baso # Seg Neutrophils % Monocytes % (Manual) Nucleated RBC % Seg Neutrophils # Monocytes # (Manual) PT INR APTT Heparin Anti-Xa Level POC ABG pH POC ABG pCO2 POC ABG pO2 Sodium Potassium Chloride Carbon Dioxide BUN Creatinine Glucose POC Glucose 116 H 110 H Calcium Phosphorus Magnesium AST ALT Alkaline Phosphatase C-Reactive Protein Total Protein Albumin Triglycerides Urine pH 9.0 H Vancomycin Trough Salicylates Crossmatch 08/27/17 08/27/17 08/28/17 16:36 22:00 04:41 WBC RBC Hgb Hct MCV MCH MCHC RDW Lymph % (Auto) [place] % (Auto) Lymph # [place] # Baso # Seg Neutrophils % Monocytes % (Manual) Nucleated RBC % Seg Neutrophils # Monocytes # (Manual) PT INR APTT Heparin Anti-Xa Level POC ABG pH POC ABG pCO2 POC ABG pO2 Sodium Potassium Chloride Carbon Dioxide BUN Creatinine Glucose 139 H POC Glucose 108 H 130 H Calcium 8.2 L Phosphorus Magnesium AST ALT Alkaline Phosphatase C-Reactive Protein Total Protein Albumin Triglycerides Urine pH Vancomycin Trough Salicylates Crossmatch 08/28/17 08/28/17 08/28/17 04:41 06:46 07:16 WBC RBC Hgb Hct MCV MCH MCHC RDW Lymph % (Auto) Wake % (Auto) Lymph # [place] # Baso # Seg Neutrophils % Monocytes % (Manual) Nucleated RBC % Seg Neutrophils # Monocytes # (Manual) PT 25.2 H INR 2.17 H APTT Heparin Anti-Xa Level POC ABG pH POC ABG pCO2 POC ABG pO2 Sodium Potassium Chloride Carbon Dioxide BUN Creatinine Glucose POC Glucose 176 H 175 H Calcium Phosphorus Magnesium AST ALT Alkaline Phosphatase C-Reactive Protein Total Protein Albumin Triglycerides Urine pH Vancomycin Trough Salicylates Crossmatch 08/28/17 08/28/17 08/28/17 11:41 16:47 20:01 WBC RBC Hgb Hct MCV MCH MCHC RDW Lymph % (Auto) [place] % (Auto) Lymph # [place] # Baso # Seg Neutrophils % Monocytes % (Manual) Nucleated RBC % Seg Neutrophils # Monocytes # (Manual) PT 21.8 H INR 1.80 H APTT 56.5 H Heparin Anti-Xa Level POC ABG pH POC ABG pCO2 POC ABG pO2 Sodium Potassium Chloride Carbon Dioxide BUN Creatinine Glucose POC Glucose 176 H 206 H Calcium Phosphorus Magnesium AST ALT Alkaline Phosphatase C-Reactive Protein Total Protein Albumin Triglycerides Urine pH Vancomycin Trough Salicylates Crossmatch 08/28/17 08/29/17 08/29/17 20:43 00:07 02:30 WBC RBC Hgb 6.4 L Hct 20.6 L MCV MCH MCHC RDW Lymph % (Auto) Wake % (Auto) Lymph # [place] # Baso # Seg Neutrophils % Monocytes % (Manual) Nucleated RBC % Seg Neutrophils # Monocytes # (Manual) PT INR APTT Heparin Anti-Xa Level POC ABG pH POC ABG pCO2 POC ABG pO2 Sodium Potassium Chloride Carbon Dioxide BUN Creatinine Glucose POC Glucose 259 H Calcium Phosphorus Magnesium AST ALT Alkaline Phosphatase C-Reactive Protein Total Protein Albumin Triglycerides Urine pH Vancomycin Trough Salicylates Crossmatch See Detail 08/29/17 08/29/17 08/29/17 02:56 07:25 11:40 WBC RBC Hgb Hct MCV MCH MCHC RDW Lymph % (Auto) Wake % (Auto) Lymph # [place] # Baso # Seg Neutrophils % Monocytes % (Manual) Nucleated RBC % Seg Neutrophils # Monocytes # (Manual) PT INR APTT Heparin Anti-Xa Level POC ABG pH POC ABG pCO2 POC ABG pO2 Sodium Potassium 3.5 L Chloride Carbon Dioxide 21 L BUN 21 H Creatinine Glucose 214 H POC Glucose 220 H 174 H Calcium 8.0 L Phosphorus Magnesium 1.60 L AST ALT Alkaline Phosphatase C-Reactive Protein Total Protein Albumin Triglycerides Urine pH Vancomycin Trough Salicylates Crossmatch 08/29/17 08/29/17 08/29/17 16:10 16:40 17:48 WBC RBC Hgb 8.5 L Hct 26.7 L D MCV MCH MCHC RDW Lymph % (Auto) [place] % (Auto) Lymph # [place] # Baso # Seg Neutrophils % Monocytes % (Manual) Nucleated RBC % Seg Neutrophils # Monocytes # (Manual) PT INR APTT Heparin Anti-Xa Level POC ABG pH POC ABG pCO2 POC ABG pO2 Sodium Potassium Chloride Carbon Dioxide BUN Creatinine Glucose POC Glucose 178 H Calcium Phosphorus Magnesium AST ALT Alkaline Phosphatase C-Reactive Protein Total Protein 3.9 L D Albumin 1.5 L Triglycerides Urine pH Vancomycin Trough Salicylates Crossmatch 08/29/17 08/29/17 08/30/17 18:32 22:19 04:25 WBC RBC Hgb 7.9 L Hct 25.2 L MCV MCH MCHC RDW Lymph % (Auto) [place] % (Auto) Lymph # [place] # Baso # Seg Neutrophils % Monocytes % (Manual) Nucleated RBC % Seg Neutrophils # Monocytes # (Manual) PT INR APTT Heparin Anti-Xa Level POC ABG pH POC ABG pCO2 POC ABG pO2 Sodium Potassium Chloride Carbon Dioxide BUN Creatinine Glucose POC Glucose 247 H Calcium Phosphorus Magnesium AST ALT Alkaline Phosphatase C-Reactive Protein Total Protein Albumin Triglycerides Urine pH Vancomycin Trough 25.5 H Salicylates Crossmatch 08/30/17 08/30/17 08/30/17 04:25 07:53 11:53 WBC RBC Hgb Hct MCV MCH MCHC RDW Lymph % (Auto) [place] % (Auto) Lymph # [place] # Baso # Seg Neutrophils % Monocytes % (Manual) Nucleated RBC % Seg Neutrophils # Monocytes # (Manual) PT INR APTT Heparin Anti-Xa Level POC ABG pH POC ABG pCO2 POC ABG pO2 Sodium 136 L Potassium 3.2 L Chloride Carbon Dioxide 18 L BUN 29 H Creatinine Glucose 203 H POC Glucose 193 H 246 H Calcium Phosphorus Magnesium AST ALT Alkaline Phosphatase C-Reactive Protein Total Protein Albumin Triglycerides Urine pH Vancomycin Trough Salicylates Crossmatch 08/30/17 08/30/17 08/31/17 16:47 21:36 04:28 WBC RBC Hgb Hct MCV MCH MCHC RDW Lymph % (Auto) [place] % (Auto) Lymph # [place] # Baso # Seg Neutrophils % Monocytes % (Manual) Nucleated RBC % Seg Neutrophils # Monocytes # (Manual) PT INR APTT Heparin Anti-Xa Level POC ABG pH POC ABG pCO2 POC ABG pO2 Sodium Potassium 3.5 L Chloride 111.0 H Carbon Dioxide 19 L BUN 25 H Creatinine Glucose 53 L POC Glucose 159 H 110 H Calcium Phosphorus Magnesium AST ALT Alkaline Phosphatase C-Reactive Protein Total Protein 6.0 L D Albumin 2.2 L Triglycerides Urine pH Vancomycin Trough Salicylates Crossmatch 08/31/17 08/31/17 08/31/17 04:28 07:31 07:34 WBC RBC 2.99 L Hgb 7.8 L Hct 23.8 L MCV 80 L MCH 26 L MCHC RDW 22.7 H Lymph % (Auto) [place] % (Auto) 13.0 H Lymph # [place] # 1.3 H Baso # Seg Neutrophils % Monocytes % (Manual) Nucleated RBC % Seg Neutrophils # Monocytes # (Manual) PT INR APTT Heparin Anti-Xa Level POC ABG pH POC ABG pCO2 POC ABG pO2 Sodium Potassium Chloride Carbon Dioxide BUN Creatinine Glucose POC Glucose < 40 L 42 L Calcium Phosphorus Magnesium AST ALT Alkaline Phosphatase C-Reactive Protein Total Protein Albumin Triglycerides Urine pH Vancomycin Trough Salicylates Crossmatch 08/31/17 08/31/17 08/31/17 09:10 16:45 22:56 WBC RBC Hgb Hct MCV MCH MCHC RDW Lymph % (Auto) [place] % (Auto) Lymph # [place] # Baso # Seg Neutrophils % Monocytes % (Manual) Nucleated RBC % Seg Neutrophils # Monocytes # (Manual) PT INR APTT Heparin Anti-Xa Level POC ABG pH POC ABG pCO2 POC ABG pO2 Sodium Potassium Chloride Carbon Dioxide BUN Creatinine Glucose POC Glucose 64 L 173 H 167 H Calcium Phosphorus Magnesium AST ALT Alkaline Phosphatase C-Reactive Protein Total Protein Albumin Triglycerides Urine pH Vancomycin Trough Salicylates Crossmatch 09/01/17 09/01/17 09/01/17 04:05 04:05 07:26 WBC RBC Hgb 8.4 L Hct 26.3 L MCV MCH MCHC RDW Lymph % (Auto) [place] % (Auto) Lymph # [place] # Baso # Seg Neutrophils % Monocytes % (Manual) Nucleated RBC % Seg Neutrophils # Monocytes # (Manual) PT INR APTT Heparin Anti-Xa Level POC ABG pH POC ABG pCO2 POC ABG pO2 Sodium Potassium Chloride 109.0 H Carbon Dioxide 17 L BUN 23 H Creatinine Glucose 187 H POC Glucose 256 H Calcium Phosphorus Magnesium AST ALT Alkaline Phosphatase C-Reactive Protein Total Protein Albumin Triglycerides 210 H Urine pH Vancomycin Trough Salicylates Crossmatch 09/01/17 09/01/17 09/01/17 10:43 10:43 11:53 WBC RBC Hgb Hct MCV MCH MCHC RDW Lymph % (Auto) [place] % (Auto) Lymph # [place] # Baso # Seg Neutrophils % Monocytes % (Manual) Nucleated RBC % Seg Neutrophils # Monocytes # (Manual) PT INR APTT Heparin Anti-Xa Level POC ABG pH POC ABG pCO2 POC ABG pO2 Sodium Potassium Chloride Carbon Dioxide BUN Creatinine Glucose POC Glucose 251 H Calcium Phosphorus Magnesium AST ALT Alkaline Phosphatase C-Reactive Protein 28.80 H Total Protein Albumin Triglycerides Urine pH Vancomycin Trough 27.7 H Salicylates Crossmatch 09/01/17 09/01/17 09/01/17 17:05 20:46 Unknown WBC RBC Hgb Hct MCV MCH MCHC RDW Lymph % (Auto) [place] % (Auto) Lymph # [place] # Baso # Seg Neutrophils % Monocytes % (Manual) Nucleated RBC % Seg Neutrophils # Monocytes # (Manual) PT INR APTT Heparin Anti-Xa Level 0.11 L POC ABG pH 7.485 H POC ABG pCO2 25.0 L POC ABG pO2 Sodium Potassium Chloride Carbon Dioxide BUN Creatinine Glucose POC Glucose 180 H Calcium Phosphorus Magnesium AST ALT Alkaline Phosphatase C-Reactive Protein Total Protein Albumin Triglycerides Urine pH Vancomycin Trough Salicylates Crossmatch 09/02/17 09/02/17 09/02/17 01:02 05:15 05:15 WBC RBC Hgb Hct MCV MCH MCHC RDW Lymph % (Auto) [place] % (Auto) Lymph # [place] # Baso # Seg Neutrophils % Monocytes % (Manual) Nucleated RBC % Seg Neutrophils # Monocytes # (Manual) PT INR APTT Heparin Anti-Xa Level 0.13 L POC ABG pH POC ABG pCO2 POC ABG pO2 Sodium Potassium Chloride 110.3 H Carbon Dioxide 19 L BUN 23 H Creatinine Glucose 172 H POC Glucose 222 H Calcium Phosphorus Magnesium AST ALT Alkaline Phosphatase C-Reactive Protein Total Protein Albumin Triglycerides Urine pH Vancomycin Trough Salicylates Crossmatch 09/02/17 09/02/17 09/02/17 07:46 10:03 11:41 WBC RBC Hgb Hct MCV MCH MCHC RDW Lymph % (Auto) [place] % (Auto) Lymph # [place] # Baso # Seg Neutrophils % Monocytes % (Manual) Nucleated RBC % Seg Neutrophils # Monocytes # (Manual) PT INR APTT Heparin Anti-Xa Level < 0.10 L POC ABG pH POC ABG pCO2 POC ABG pO2 Sodium Potassium Chloride Carbon Dioxide BUN Creatinine Glucose POC Glucose 217 H 211 H Calcium Phosphorus Magnesium AST ALT Alkaline Phosphatase C-Reactive Protein Total Protein Albumin Triglycerides Urine pH Vancomycin Trough Salicylates Crossmatch 09/02/17 09/02/17 09/02/17 16:43 19:24 22:06 WBC RBC Hgb Hct MCV MCH MCHC RDW Lymph % (Auto) [place] % (Auto) Lymph # [place] # Baso # Seg Neutrophils % Monocytes % (Manual) Nucleated RBC % Seg Neutrophils # Monocytes # (Manual) PT INR APTT Heparin Anti-Xa Level 0.19 L POC ABG pH POC ABG pCO2 POC ABG pO2 Sodium Potassium Chloride Carbon Dioxide BUN Creatinine Glucose POC Glucose 247 H 196 H Calcium Phosphorus Magnesium AST ALT Alkaline Phosphatase C-Reactive Protein Total Protein Albumin Triglycerides Urine pH Vancomycin Trough Salicylates Crossmatch 09/03/17 09/03/17 09/03/17 04:50 04:50 08:02 WBC RBC 2.80 L Hgb 7.1 L Hct 22.5 L MCV 80 L MCH 25 L MCHC 31 L RDW 22.7 H Lymph % (Auto) [place] % (Auto) 7.6 H Lymph # [place] # Baso # Seg Neutrophils % Monocytes % (Manual) Nucleated RBC % Seg Neutrophils # Monocytes # (Manual) PT INR APTT Heparin Anti-Xa Level POC ABG pH POC ABG pCO2 POC ABG pO2 Sodium Potassium Chloride 109.7 H Carbon Dioxide 20 L BUN 27 H Creatinine Glucose 193 H POC Glucose 226 H Calcium Phosphorus Magnesium AST ALT Alkaline Phosphatase 140 H C-Reactive Protein Total Protein Albumin 2.4 L Triglycerides Urine pH Vancomycin Trough Salicylates Crossmatch 09/03/17 09/03/17 09/03/17 11:54 16:26 22:03 WBC RBC Hgb Hct MCV MCH MCHC RDW Lymph % (Auto) [place] % (Auto) Lymph # [place] # Baso # Seg Neutrophils % Monocytes % (Manual) Nucleated RBC % Seg Neutrophils # Monocytes # (Manual) PT INR APTT Heparin Anti-Xa Level POC ABG pH POC ABG pCO2 POC ABG pO2 Sodium Potassium Chloride Carbon Dioxide BUN Creatinine Glucose POC Glucose 221 H 123 H 206 H Calcium Phosphorus Magnesium AST ALT Alkaline Phosphatase C-Reactive Protein Total Protein Albumin Triglycerides Urine pH Vancomycin Trough Salicylates Crossmatch 09/04/17 09/04/17 09/04/17 07:56 11:35 16:30 WBC RBC Hgb Hct MCV MCH MCHC RDW Lymph % (Auto) [place] % (Auto) Lymph # [place] # Baso # Seg Neutrophils % Monocytes % (Manual) Nucleated RBC % Seg Neutrophils # Monocytes # (Manual) PT INR APTT Heparin Anti-Xa Level POC ABG pH POC ABG pCO2 POC ABG pO2 Sodium Potassium Chloride Carbon Dioxide BUN Creatinine Glucose POC Glucose 205 H 263 H 158 H Calcium Phosphorus Magnesium AST ALT Alkaline Phosphatase C-Reactive Protein Total Protein Albumin Triglycerides Urine pH Vancomycin Trough Salicylates Crossmatch 09/04/17 09/05/17 09/05/17 22:33 08:00 08:00 WBC 12.5 H RBC 2.81 L Hgb 6.9 L Hct 22.6 L MCV 81 L MCH 24 L MCHC 30 L RDW 22.4 H Lymph % (Auto) [place] % (Auto) 8.0 H Lymph # [place] # 1.0 H Baso # Seg Neutrophils % Monocytes % (Manual) Nucleated RBC % Seg Neutrophils # Monocytes # (Manual) PT INR APTT Heparin Anti-Xa Level POC ABG pH POC ABG pCO2 POC ABG pO2 Sodium Potassium Chloride 109.0 H Carbon Dioxide 20 L BUN 27 H Creatinine Glucose 219 H POC Glucose 217 H Calcium Phosphorus Magnesium AST ALT Alkaline Phosphatase 169 H C-Reactive Protein Total Protein Albumin 2.4 L Triglycerides Urine pH Vancomycin Trough Salicylates Crossmatch 09/05/17 09/05/17 09/05/17 11:58 15:52 22:35 WBC RBC Hgb Hct MCV MCH MCHC RDW Lymph % (Auto) [place] % (Auto) Lymph # Wake # Baso # Seg Neutrophils % Monocytes % (Manual) Nucleated RBC % Seg Neutrophils # Monocytes # (Manual) PT INR APTT Heparin Anti-Xa Level POC ABG pH POC ABG pCO2 POC ABG pO2 Sodium Potassium Chloride Carbon Dioxide BUN Creatinine Glucose POC Glucose 251 H 200 H 259 H Calcium Phosphorus Magnesium AST ALT Alkaline Phosphatase C-Reactive Protein Total Protein Albumin Triglycerides Urine pH Vancomycin Trough Salicylates Crossmatch 09/05/17 09/06/17 09/06/17 23:55 08:19 09:32 WBC 12.0 H RBC 2.75 L 2.93 L Hgb 7.0 L 7.1 L Hct 22.2 L 23.5 L MCV 81 L 80 L MCH 25 L 24 L MCHC 31 L 30 L RDW 23.1 H 22.4 H Lymph % (Auto) [place] % (Auto) Lymph # [place] # Baso # Seg Neutrophils % Monocytes % (Manual) Nucleated RBC % Seg Neutrophils # 8.1 H Monocytes # (Manual) PT INR APTT Heparin Anti-Xa Level POC ABG pH POC ABG pCO2 POC ABG pO2 Sodium Potassium Chloride Carbon Dioxide BUN Creatinine Glucose POC Glucose 210 H Calcium Phosphorus Magnesium AST ALT Alkaline Phosphatase C-Reactive Protein Total Protein Albumin Triglycerides Urine pH Vancomycin Trough Salicylates Crossmatch 09/06/17 09/06/17 09/06/17 12:08 16:15 21:17 WBC RBC 2.83 L Hgb 7.2 L Hct 22.9 L MCV 81 L MCH 25 L MCHC 31 L RDW 22.4 H Lymph % (Auto) [place] % (Auto) 8.1 H Lymph # [place] # Baso # Seg Neutrophils % Monocytes % (Manual) Nucleated RBC % Seg Neutrophils # Monocytes # (Manual) PT INR APTT Heparin Anti-Xa Level POC ABG pH POC ABG pCO2 POC ABG pO2 Sodium Potassium Chloride Carbon Dioxide BUN Creatinine Glucose POC Glucose 179 H 157 H Calcium Phosphorus Magnesium AST ALT Alkaline Phosphatase C-Reactive Protein Total Protein Albumin Triglycerides Urine pH Vancomycin Trough Salicylates Crossmatch 09/06/17 09/07/17 09/07/17 23:17 07:40 07:40 WBC RBC 2.81 L Hgb 7.2 L Hct 22.4 L MCV 80 L MCH 26 L MCHC RDW 23.0 H Lymph % (Auto) [place] % (Auto) Lymph # [place] # Baso # Seg Neutrophils % 73.7 H Monocytes % (Manual) Nucleated RBC % Seg Neutrophils # Monocytes # (Manual) PT INR APTT Heparin Anti-Xa Level POC ABG pH POC ABG pCO2 POC ABG pO2 Sodium Potassium Chloride 108.0 H Carbon Dioxide 21 L BUN Creatinine Glucose 186 H POC Glucose 195 H Calcium Phosphorus Magnesium AST ALT Alkaline Phosphatase 143 H C-Reactive Protein Total Protein Albumin 2.5 L Triglycerides Urine pH Vancomycin Trough Salicylates Crossmatch 09/07/17 09/07/17 09/07/17 07:40 08:40 11:35 WBC RBC Hgb Hct MCV MCH MCHC RDW Lymph % (Auto) [place] % (Auto) Lymph # [place] # Baso # Seg Neutrophils % Monocytes % (Manual) Nucleated RBC % Seg Neutrophils # Monocytes # (Manual) PT INR APTT Heparin Anti-Xa Level POC ABG pH POC ABG pCO2 POC ABG pO2 Sodium Potassium Chloride 109.1 H Carbon Dioxide 21 L BUN Creatinine Glucose 183 H POC Glucose 218 H 229 H Calcium Phosphorus Magnesium AST ALT Alkaline Phosphatase 141 H C-Reactive Protein Total Protein Albumin 2.6 L Triglycerides Urine pH Vancomycin Trough Salicylates Crossmatch 09/07/17 09/07/17 09/07/17 14:57 16:35 21:30 WBC RBC 2.56 L Hgb 6.6 L Hct 20.5 L MCV 80 L MCH 26 L MCHC RDW 22.5 H Lymph % (Auto) [place] % (Auto) 8.1 H Lymph # [place] # 0.9 H Baso # 0.2 H Seg Neutrophils % Monocytes % (Manual) Nucleated RBC % Seg Neutrophils # Monocytes # (Manual) PT INR APTT Heparin Anti-Xa Level POC ABG pH POC ABG pCO2 POC ABG pO2 68 L Sodium Potassium Chloride Carbon Dioxide BUN Creatinine Glucose POC Glucose 256 H Calcium Phosphorus Magnesium AST ALT Alkaline Phosphatase C-Reactive Protein Total Protein Albumin Triglycerides Urine pH Vancomycin Trough Salicylates Crossmatch 09/07/17 09/08/17 09/08/17 22:35 08:13 11:50 WBC RBC Hgb Hct MCV MCH MCHC RDW Lymph % (Auto) [place] % (Auto) Lymph # [place] # Baso # Seg Neutrophils % Monocytes % (Manual) Nucleated RBC % Seg Neutrophils # Monocytes # (Manual) PT INR APTT Heparin Anti-Xa Level POC ABG pH POC ABG pCO2 POC ABG pO2 Sodium Potassium Chloride Carbon Dioxide BUN Creatinine Glucose POC Glucose 230 H 213 H 206 H Calcium Phosphorus Magnesium AST ALT Alkaline Phosphatase C-Reactive Protein Total Protein Albumin Triglycerides Urine pH Vancomycin Trough Salicylates Crossmatch 09/08/17 09/08/17 09/08/17 17:14 20:45 20:50 WBC 12.3 H RBC 2.74 L Hgb 6.7 L Hct 21.8 L MCV 79 L MCH 24 L MCHC 31 L RDW 23.0 H Lymph % (Auto) [place] % (Auto) 7.7 H Lymph # [place] # 0.9 H Baso # Seg Neutrophils % Monocytes % (Manual) Nucleated RBC % Seg Neutrophils # Monocytes # (Manual) PT INR APTT Heparin Anti-Xa Level 0.15 L POC ABG pH POC ABG pCO2 POC ABG pO2 Sodium Potassium Chloride Carbon Dioxide BUN Creatinine Glucose POC Glucose 210 H Calcium Phosphorus Magnesium AST ALT Alkaline Phosphatase C-Reactive Protein Total Protein Albumin Triglycerides Urine pH Vancomycin Trough Salicylates Crossmatch 09/08/17 09/09/17 09/09/17 22:08 06:50 06:50 WBC RBC 2.64 L Hgb 6.6 L Hct 21.2 L MCV 80 L MCH 25 L MCHC 31 L RDW 22.7 H Lymph % (Auto) [place] % (Auto) 9.3 H Lymph # [place] # 1.0 H Baso # Seg Neutrophils % Monocytes % (Manual) Nucleated RBC % Seg Neutrophils # Monocytes # (Manual) PT INR APTT Heparin Anti-Xa Level POC ABG pH POC ABG pCO2 POC ABG pO2 Sodium 136 L Potassium Chloride Carbon Dioxide BUN Creatinine 0.7 L Glucose 182 H POC Glucose 217 H Calcium Phosphorus Magnesium AST ALT Alkaline Phosphatase C-Reactive Protein Total Protein Albumin 2.5 L Triglycerides Urine pH Vancomycin Trough Salicylates Crossmatch 09/09/17 09/09/17 09/09/17 08:00 11:24 16:40 WBC RBC Hgb Hct MCV MCH MCHC RDW Lymph % (Auto) [place] % (Auto) Lymph # [place] # Baso # Seg Neutrophils % Monocytes % (Manual) Nucleated RBC % Seg Neutrophils # Monocytes # (Manual) PT INR APTT Heparin Anti-Xa Level POC ABG pH POC ABG pCO2 POC ABG pO2 Sodium Potassium Chloride Carbon Dioxide BUN Creatinine Glucose POC Glucose 245 H 257 H 220 H Calcium Phosphorus Magnesium AST ALT Alkaline Phosphatase C-Reactive Protein Total Protein Albumin Triglycerides Urine pH Vancomycin Trough Salicylates Crossmatch 09/09/17 09/09/17 09/09/17 17:50 19:14 19:14 WBC RBC 5.12 H Hgb Hct MCV 80 L MCH 25 L MCHC 31 L RDW 23.3 H Lymph % (Auto) [place] % (Auto) Lymph # [place] # Baso # Seg Neutrophils % Monocytes % (Manual) Nucleated RBC % Seg Neutrophils # Monocytes # (Manual) PT INR APTT Heparin Anti-Xa Level < 0.10 L < 0.10 L POC ABG pH POC ABG pCO2 POC ABG pO2 Sodium Potassium Chloride Carbon Dioxide BUN Creatinine Glucose POC Glucose Calcium Phosphorus Magnesium AST ALT Alkaline Phosphatase C-Reactive Protein Total Protein Albumin Triglycerides Urine pH Vancomycin Trough Salicylates Crossmatch 09/09/17 09/10/17 09/10/17 23:50 03:55 03:55 WBC 11.1 H RBC 2.59 L Hgb 6.7 L D Hct 20.9 L D MCV 81 L MCH 26 L MCHC RDW 22.6 H Lymph % (Auto) [place] % (Auto) 8.7 H Lymph # [place] # 1.0 H Baso # Seg Neutrophils % Monocytes % (Manual) Nucleated RBC % Seg Neutrophils # Monocytes # (Manual) PT INR APTT Heparin Anti-Xa Level POC ABG pH POC ABG pCO2 POC ABG pO2 Sodium Potassium Chloride Carbon Dioxide BUN Creatinine 0.7 L Glucose 191 H POC Glucose 192 H Calcium Phosphorus Magnesium AST ALT Alkaline Phosphatase C-Reactive Protein Total Protein Albumin Triglycerides Urine pH Vancomycin Trough Salicylates Crossmatch 09/10/17 09/10/17 09/10/17 08:39 11:33 14:30 WBC RBC Hgb 6.1 L Hct 19.8 L* MCV MCH MCHC RDW Lymph % (Auto) [place] % (Auto) Lymph # [place] # Baso # Seg Neutrophils % Monocytes % (Manual) Nucleated RBC % Seg Neutrophils # Monocytes # (Manual) PT INR APTT Heparin Anti-Xa Level POC ABG pH POC ABG pCO2 POC ABG pO2 Sodium Potassium Chloride Carbon Dioxide BUN Creatinine Glucose POC Glucose 233 H 231 H Calcium Phosphorus Magnesium AST ALT Alkaline Phosphatase C-Reactive Protein Total Protein Albumin Triglycerides Urine pH Vancomycin Trough Salicylates Crossmatch 09/10/17 09/10/17 09/10/17 16:20 16:50 21:25 WBC RBC Hgb Hct MCV MCH MCHC RDW Lymph % (Auto) [place] % (Auto) Lymph # [place] # Baso # Seg Neutrophils % Monocytes % (Manual) Nucleated RBC % Seg Neutrophils # Monocytes # (Manual) PT INR APTT Heparin Anti-Xa Level POC ABG pH POC ABG pCO2 POC ABG pO2 Sodium Potassium Chloride Carbon Dioxide BUN Creatinine Glucose POC Glucose 189 H 113 H Calcium Phosphorus Magnesium AST ALT Alkaline Phosphatase C-Reactive Protein Total Protein Albumin Triglycerides Urine pH Vancomycin Trough Salicylates Crossmatch See Detail 09/11/17 09/11/17 09/11/17 04:27 08:06 11:32 WBC RBC Hgb Hct MCV MCH MCHC RDW Lymph % (Auto) [place] % (Auto) Lymph # [place] # Baso # Seg Neutrophils % Monocytes % (Manual) Nucleated RBC % Seg Neutrophils # Monocytes # (Manual) PT INR APTT Heparin Anti-Xa Level POC ABG pH POC ABG pCO2 POC ABG pO2 Sodium Potassium Chloride Carbon Dioxide BUN Creatinine Glucose 174 H POC Glucose 232 H 298 H Calcium Phosphorus Magnesium AST ALT Alkaline Phosphatase C-Reactive Protein Total Protein Albumin Triglycerides Urine pH Vancomycin Trough Salicylates Crossmatch 09/11/17 09/11/17 09/11/17 14:18 14:20 17:34 WBC RBC Hgb 8.3 L Hct 25.6 L MCV MCH MCHC RDW Lymph % (Auto) [place] % (Auto) Lymph # [place] # Baso # Seg Neutrophils % Monocytes % (Manual) Nucleated RBC % Seg Neutrophils # Monocytes # (Manual) PT INR APTT Heparin Anti-Xa Level < 0.10 L POC ABG pH POC ABG pCO2 POC ABG pO2 Sodium Potassium Chloride Carbon Dioxide BUN Creatinine Glucose POC Glucose 184 H Calcium Phosphorus Magnesium AST ALT Alkaline Phosphatase C-Reactive Protein Total Protein Albumin Triglycerides Urine pH Vancomycin Trough Salicylates Crossmatch 09/11/17 09/11/17 09/12/17 20:11 22:15 06:08 WBC RBC 3.33 L Hgb 8.6 L Hct 26.9 L MCV 81 L MCH 26 L MCHC RDW 20.3 H Lymph % (Auto) [place] % (Auto) 8.9 H Lymph # [place] # Baso # Seg Neutrophils % Monocytes % (Manual) Nucleated RBC % Seg Neutrophils # Monocytes # (Manual) PT INR APTT Heparin Anti-Xa Level POC ABG pH POC ABG pCO2 POC ABG pO2 Sodium Potassium Chloride Carbon Dioxide BUN 22 H Creatinine Glucose 186 H POC Glucose 184 H Calcium Phosphorus Magnesium AST ALT Alkaline Phosphatase C-Reactive Protein Total Protein Albumin Triglycerides Urine pH Vancomycin Trough Salicylates Crossmatch 09/12/17 09/12/17 09/12/17 08:09 11:20 17:49 WBC RBC Hgb Hct MCV MCH MCHC RDW Lymph % (Auto) [place] % (Auto) Lymph # [place] # Baso # Seg Neutrophils % Monocytes % (Manual) Nucleated RBC % Seg Neutrophils # Monocytes # (Manual) PT INR APTT Heparin Anti-Xa Level POC ABG pH POC ABG pCO2 POC ABG pO2 Sodium Potassium Chloride Carbon Dioxide BUN Creatinine Glucose POC Glucose 228 H 238 H 197 H Calcium Phosphorus Magnesium AST ALT Alkaline Phosphatase C-Reactive Protein Total Protein Albumin Triglycerides Urine pH Vancomycin Trough Salicylates Crossmatch 09/12/17 09/13/17 09/13/17 22:50 03:25 07:30 WBC RBC Hgb Hct MCV MCH MCHC RDW Lymph % (Auto) [place] % (Auto) Lymph # [place] # Baso # Seg Neutrophils % Monocytes % (Manual) Nucleated RBC % Seg Neutrophils # Monocytes # (Manual) PT INR APTT Heparin Anti-Xa Level POC ABG pH POC ABG pCO2 POC ABG pO2 Sodium Potassium Chloride 97.5 L Carbon Dioxide BUN 22 H Creatinine Glucose 192 H POC Glucose 186 H 210 H Calcium Phosphorus Magnesium AST ALT Alkaline Phosphatase C-Reactive Protein Total Protein Albumin Triglycerides Urine pH Vancomycin Trough Salicylates Crossmatch 09/13/17 09/13/17 09/13/17 11:55 16:56 23:57 WBC RBC Hgb Hct MCV MCH MCHC RDW Lymph % (Auto) [place] % (Auto) Lymph # [place] # Baso # Seg Neutrophils % Monocytes % (Manual) Nucleated RBC % Seg Neutrophils # Monocytes # (Manual) PT INR APTT Heparin Anti-Xa Level POC ABG pH POC ABG pCO2 POC ABG pO2 Sodium Potassium Chloride Carbon Dioxide BUN Creatinine Glucose POC Glucose 224 H 179 H 153 H Calcium Phosphorus Magnesium AST ALT Alkaline Phosphatase C-Reactive Protein Total Protein Albumin Triglycerides Urine pH Vancomycin Trough Salicylates Crossmatch 09/14/17 09/14/17 09/14/17 04:04 06:20 08:34 WBC RBC Hgb Hct MCV MCH MCHC RDW Lymph % (Auto) [place] % (Auto) Lymph # [place] # Baso # Seg Neutrophils % Monocytes % (Manual) Nucleated RBC % Seg Neutrophils # Monocytes # (Manual) PT INR APTT Heparin Anti-Xa Level 0.72 H POC ABG pH POC ABG pCO2 POC ABG pO2 Sodium Potassium Chloride Carbon Dioxide BUN 24 H Creatinine Glucose 198 H POC Glucose 205 H Calcium Phosphorus Magnesium AST ALT Alkaline Phosphatase C-Reactive Protein Total Protein Albumin Triglycerides Urine pH Vancomycin Trough Salicylates Crossmatch 09/14/17 09/14/17 09/14/17 11:28 15:33 23:06 WBC RBC Hgb Hct MCV MCH MCHC RDW Lymph % (Auto) [place] % (Auto) Lymph # [place] # Baso # Seg Neutrophils % Monocytes % (Manual) Nucleated RBC % Seg Neutrophils # Monocytes # (Manual) PT INR APTT Heparin Anti-Xa Level POC ABG pH POC ABG pCO2 POC ABG pO2 Sodium Potassium Chloride Carbon Dioxide BUN Creatinine Glucose POC Glucose 205 H 187 H 177 H Calcium Phosphorus Magnesium AST ALT Alkaline Phosphatase C-Reactive Protein Total Protein Albumin Triglycerides Urine pH Vancomycin Trough Salicylates Crossmatch 09/15/17 09/15/17 09/15/17 04:00 07:52 12:00 WBC RBC Hgb Hct MCV MCH MCHC RDW Lymph % (Auto) [place] % (Auto) Lymph # [place] # Baso # Seg Neutrophils % Monocytes % (Manual) Nucleated RBC % Seg Neutrophils # Monocytes # (Manual) PT INR APTT Heparin Anti-Xa Level POC ABG pH POC ABG pCO2 POC ABG pO2 Sodium Potassium Chloride Carbon Dioxide BUN 29 H Creatinine Glucose 212 H POC Glucose 254 H 236 H Calcium Phosphorus Magnesium AST ALT Alkaline Phosphatase C-Reactive Protein Total Protein Albumin Triglycerides Urine pH Vancomycin Trough Salicylates Crossmatch 09/15/17 09/15/17 09/15/17 13:28 17:07 17:58 WBC RBC 3.38 L Hgb 8.6 L Hct 27.4 L MCV 81 L MCH 26 L MCHC 31 L RDW 19.7 H Lymph % (Auto) [place] % (Auto) Lymph # [place] # Baso # Seg Neutrophils % 70.1 H Monocytes % (Manual) Nucleated RBC % Seg Neutrophils # Monocytes # (Manual) PT INR APTT Heparin Anti-Xa Level POC ABG pH POC ABG pCO2 POC ABG pO2 Sodium Potassium Chloride Carbon Dioxide BUN Creatinine Glucose POC Glucose 203 H 208 H Calcium Phosphorus Magnesium AST ALT Alkaline Phosphatase C-Reactive Protein Total Protein Albumin Triglycerides Urine pH Vancomycin Trough Salicylates Crossmatch 09/15/17 09/16/17 09/16/17 22:42 07:28 07:44 WBC RBC Hgb Hct MCV MCH MCHC RDW Lymph % (Auto) [place] % (Auto) Lymph # [place] # Baso # Seg Neutrophils % Monocytes % (Manual) Nucleated RBC % Seg Neutrophils # Monocytes # (Manual) PT INR APTT Heparin Anti-Xa Level POC ABG pH POC ABG pCO2 POC ABG pO2 Sodium Potassium Chloride Carbon Dioxide BUN 44 H Creatinine Glucose 159 H POC Glucose 171 H 172 H Calcium Phosphorus Magnesium AST ALT Alkaline Phosphatase C-Reactive Protein Total Protein Albumin Triglycerides Urine pH Vancomycin Trough Salicylates Crossmatch 09/16/17 09/16/17 09/16/17 11:45 16:41 21:41 WBC RBC Hgb Hct MCV MCH MCHC RDW Lymph % (Auto) [place] % (Auto) Lymph # [place] # Baso # Seg Neutrophils % Monocytes % (Manual) Nucleated RBC % Seg Neutrophils # Monocytes # (Manual) PT INR APTT Heparin Anti-Xa Level POC ABG pH POC ABG pCO2 POC ABG pO2 Sodium Potassium Chloride Carbon Dioxide BUN Creatinine Glucose POC Glucose 190 H 186 H 137 H Calcium Phosphorus Magnesium AST ALT Alkaline Phosphatase C-Reactive Protein Total Protein Albumin Triglycerides Urine pH Vancomycin Trough Salicylates Crossmatch 09/17/17 09/17/17 09/17/17 04:30 04:40 05:27 WBC RBC Hgb 7.3 L Hct 22.7 L MCV MCH MCHC RDW Lymph % (Auto) [place] % (Auto) Lymph # [place] # Baso # Seg Neutrophils % Monocytes % (Manual) Nucleated RBC % Seg Neutrophils # Monocytes # (Manual) PT INR APTT Heparin Anti-Xa Level POC ABG pH POC ABG pCO2 POC ABG pO2 Sodium Potassium Chloride Carbon Dioxide BUN 45 H Creatinine Glucose 166 H POC Glucose Calcium Phosphorus Magnesium AST ALT Alkaline Phosphatase C-Reactive Protein Total Protein Albumin Triglycerides Urine pH Vancomycin Trough Salicylates Crossmatch See Detail 09/17/17 09/17/17 09/17/17 07:54 11:59 16:28 WBC RBC Hgb Hct MCV MCH MCHC RDW Lymph % (Auto) [place] % (Auto) Lymph # [place] # Baso # Seg Neutrophils % Monocytes % (Manual) Nucleated RBC % Seg Neutrophils # Monocytes # (Manual) PT INR APTT Heparin Anti-Xa Level POC ABG pH POC ABG pCO2 POC ABG pO2 Sodium Potassium Chloride Carbon Dioxide BUN Creatinine Glucose POC Glucose 189 H 185 H 158 H Calcium Phosphorus Magnesium AST ALT Alkaline Phosphatase C-Reactive Protein Total Protein Albumin Triglycerides Urine pH Vancomycin Trough Salicylates Crossmatch 09/17/17 09/18/17 09/18/17 22:27 07:18 11:52 WBC RBC Hgb Hct MCV MCH MCHC RDW Lymph % (Auto) [place] % (Auto) Lymph # [place] # Baso # Seg Neutrophils % Monocytes % (Manual) Nucleated RBC % Seg Neutrophils # Monocytes # (Manual) PT INR APTT Heparin Anti-Xa Level POC ABG pH POC ABG pCO2 POC ABG pO2 Sodium Potassium Chloride Carbon Dioxide BUN Creatinine Glucose POC Glucose 174 H 314 H 312 H Calcium Phosphorus Magnesium AST ALT Alkaline Phosphatase C-Reactive Protein Total Protein Albumin Triglycerides Urine pH Vancomycin Trough Salicylates Crossmatch 09/18/17 09/18/17 09/18/17 16:49 22:50 Unknown WBC RBC Hgb 10.8 L Hct 33.3 L MCV MCH MCHC RDW Lymph % (Auto) [place] % (Auto) Lymph # [place] # Baso # Seg Neutrophils % Monocytes % (Manual) Nucleated RBC % Seg Neutrophils # Monocytes # (Manual) PT INR APTT Heparin Anti-Xa Level POC ABG pH POC ABG pCO2 POC ABG pO2 Sodium Potassium Chloride Carbon Dioxide BUN Creatinine Glucose POC Glucose 235 H 191 H Calcium Phosphorus Magnesium AST ALT Alkaline Phosphatase C-Reactive Protein Total Protein Albumin Triglycerides Urine pH Vancomycin Trough Salicylates Crossmatch 09/18/17 09/18/1709/19/17 Unknown Unknown 07:34 WBC RBC Hgb 11.0 L D Hct 32.9 L D MCV 83 L MCH MCHC RDW 19.3 H Lymph % (Auto) [place] % (Auto) Lymph # [place] # Baso # Seg Neutrophils % Monocytes % (Manual) Nucleated RBC % Seg Neutrophils # Monocytes # (Manual) PT INR APTT Heparin Anti-Xa Level POC ABG pH POC ABG pCO2 POC ABG pO2 Sodium Potassium Chloride Carbon Dioxide BUN 37 H Creatinine Glucose 275 H POC Glucose 266 H Calcium Phosphorus Magnesium AST ALT Alkaline Phosphatase C-Reactive Protein Total Protein Albumin 2.2 L Triglycerides Urine pH Vancomycin Trough Salicylates Crossmatch 09/19/17 09/19/17 09/19/17 10:15 11:23 11:26 WBC RBC Hgb 10.4 L Hct 31.7 L MCV MCH MCHC RDW 19.3 H Lymph % (Auto) [place] % (Auto) 8.1 H Lymph # [place] # Baso # Seg Neutrophils % Monocytes % (Manual) Nucleated RBC % Seg Neutrophils # Monocytes # (Manual) PT INR APTT Heparin Anti-Xa Level POC ABG pH POC ABG pCO2 POC ABG pO2 Sodium Potassium Chloride Carbon Dioxide 21 L BUN 50 H Creatinine Glucose 263 H POC Glucose 284 H Calcium Phosphorus Magnesium AST 50 H ALT 78 H Alkaline Phosphatase C-Reactive Protein Total Protein Albumin 2.5 L Triglycerides Urine pH Vancomycin Trough Salicylates Crossmatch 09/19/17 09/19/17 09/20/17 17:20 22:25 03:15 WBC RBC Hgb Hct MCV MCH MCHC RDW Lymph % (Auto) [place] % (Auto) Lymph # [place] # Baso # Seg Neutrophils % Monocytes % (Manual) Nucleated RBC % Seg Neutrophils # Monocytes # (Manual) PT INR APTT Heparin Anti-Xa Level POC ABG pH POC ABG pCO2 POC ABG pO2 Sodium Potassium Chloride Carbon Dioxide BUN 50 H Creatinine Glucose 217 H POC Glucose 143 H 223 H Calcium Phosphorus Magnesium AST 222 H ALT 335 H Alkaline Phosphatase C-Reactive Protein Total Protein 6.0 L Albumin 2.3 L Triglycerides Urine pH Vancomycin Trough Salicylates Crossmatch 09/20/17 09/20/17 09/20/17 03:15 07:40 11:35 WBC RBC 3.22 L Hgb 8.9 L Hct 27.4 L MCV MCH MCHC RDW 19.6 H Lymph % (Auto) [place] % (Auto) 10.5 H Lymph # [place] # 0.9 H Baso # Seg Neutrophils % Monocytes % (Manual) Nucleated RBC % Seg Neutrophils # Monocytes # (Manual) PT INR APTT Heparin Anti-Xa Level POC ABG pH POC ABG pCO2 POC ABG pO2 Sodium Potassium Chloride Carbon Dioxide BUN Creatinine Glucose POC Glucose 187 H 267 H Calcium Phosphorus Magnesium AST ALT Alkaline Phosphatase C-Reactive Protein Total Protein Albumin Triglycerides Urine pH Vancomycin Trough Salicylates Crossmatch 09/20/17 09/20/17 09/21/17 16:42 22:14 05:20 WBC RBC Hgb Hct MCV MCH MCHC RDW Lymph % (Auto) [place] % (Auto) Lymph # [place] # Baso # Seg Neutrophils % Monocytes % (Manual) Nucleated RBC % Seg Neutrophils # Monocytes # (Manual) PT INR APTT Heparin Anti-Xa Level POC ABG pH POC ABG pCO2 POC ABG pO2 Sodium 136 L Potassium Chloride Carbon Dioxide 21 L BUN 71 H Creatinine 1.8 H D Glucose 279 H POC Glucose 264 H 289 H Calcium Phosphorus Magnesium 2.40 H AST ALT Alkaline Phosphatase C-Reactive Protein Total Protein Albumin Triglycerides Urine pH Vancomycin Trough Salicylates Crossmatch 09/21/17 09/21/17 09/21/17 07:22 10:51 10:51 WBC RBC 3.06 L Hgb 8.5 L Hct 26.1 L MCV MCH MCHC RDW 19.7 H Lymph % (Auto) [place] % (Auto) 8.3 H Lymph # [place] # Baso # Seg Neutrophils % Monocytes % (Manual) Nucleated RBC % Seg Neutrophils # Monocytes # (Manual) PT INR APTT Heparin Anti-Xa Level POC ABG pH POC ABG pCO2 POC ABG pO2 Sodium Potassium Chloride Carbon Dioxide 19 L BUN 71 H Creatinine 2.0 H Glucose 265 H POC Glucose 341 H Calcium Phosphorus Magnesium AST ALT 132 H Alkaline Phosphatase C-Reactive Protein Total Protein 6.0 L Albumin 2.3 L Triglycerides Urine pH Vancomycin Trough Salicylates Crossmatch 09/21/17 09/21/17 09/21/17 11:38 16:25 22:57 WBC RBC Hgb Hct MCV MCH MCHC RDW Lymph % (Auto) [place] % (Auto) Lymph # [place] # Baso # Seg Neutrophils % Monocytes % (Manual) Nucleated RBC % Seg Neutrophils # Monocytes # (Manual) PT INR APTT Heparin Anti-Xa Level POC ABG pH POC ABG pCO2 POC ABG pO2 Sodium Potassium Chloride Carbon Dioxide BUN Creatinine Glucose POC Glucose 324 H 284 H 247 H Calcium Phosphorus Magnesium AST ALT Alkaline Phosphatase C-Reactive Protein Total Protein Albumin Triglycerides Urine pH Vancomycin Trough Salicylates Crossmatch 09/22/17 09/22/17 09/22/17 04:30 04:30 04:31 WBC RBC Hgb Hct MCV MCH MCHC RDW Lymph % (Auto) [place] % (Auto) Lymph # [place] # Baso # Seg Neutrophils % Monocytes % (Manual) Nucleated RBC % Seg Neutrophils # Monocytes # (Manual) PT INR APTT Heparin Anti-Xa Level POC ABG pH POC ABG pCO2 POC ABG pO2 Sodium 136 L Potassium Chloride Carbon Dioxide 18 L BUN 87 H Creatinine 2.3 H Glucose 331 H POC Glucose 309 H Calcium Phosphorus 5.20 H Magnesium 2.60 H AST ALT 96 H Alkaline Phosphatase C-Reactive Protein Total Protein Albumin 2.6 L Triglycerides Urine pH Vancomycin Trough Salicylates Crossmatch 09/22/17 09/22/17 09/22/17 07:10 07:21 08:43 WBC RBC 2.93 L Hgb 9.6 L Hct 28.1 L MCV 96 H MCH 33 H MCHC RDW 20.5 H Lymph % (Auto) [place] % (Auto) Lymph # [place] # Baso # Seg Neutrophils % 79.5 H Monocytes % (Manual) Nucleated RBC % Seg Neutrophils # Monocytes # (Manual) PT INR APTT Heparin Anti-Xa Level POC ABG pH POC ABG pCO2 POC ABG pO2 Sodium Potassium Chloride Carbon Dioxide BUN Creatinine Glucose POC Glucose 325 H 341 H Calcium Phosphorus Magnesium AST ALT Alkaline Phosphatase C-Reactive Protein Total Protein Albumin Triglycerides Urine pH Vancomycin Trough Salicylates Crossmatch 09/22/17 09/22/17 09/22/17 11:28 11:47 13:25 WBC RBC Hgb Hct MCV MCH MCHC RDW Lymph % (Auto) [place] % (Auto) Lymph # [place] # Baso # Seg Neutrophils % Monocytes % (Manual) Nucleated RBC % Seg Neutrophils # Monocytes # (Manual) PT INR APTT Heparin Anti-Xa Level POC ABG pH 7.256 L POC ABG pCO2 POC ABG pO2 70 L Sodium Potassium Chloride Carbon Dioxide BUN Creatinine Glucose POC Glucose 384 H Calcium Phosphorus Magnesium AST ALT Alkaline Phosphatase C-Reactive Protein 6.60 H Total Protein Albumin Triglycerides Urine pH Vancomycin Trough Salicylates Crossmatch 09/22/17 09/22/17 09/22/17 15:23 17:39 21:49 WBC RBC Hgb Hct MCV MCH MCHC RDW Lymph % (Auto) [place] % (Auto) Lymph # [place] # Baso # Seg Neutrophils % Monocytes % (Manual) Nucleated RBC % Seg Neutrophils # Monocytes # (Manual) PT INR APTT Heparin Anti-Xa Level POC ABG pH POC ABG pCO2 POC ABG pO2 Sodium Potassium Chloride Carbon Dioxide BUN Creatinine Glucose POC Glucose 364 H 332 H 290 H Calcium Phosphorus Magnesium AST ALT Alkaline Phosphatase C-Reactive Protein Total Protein Albumin Triglycerides Urine pH Vancomycin Trough Salicylates Crossmatch 09/23/17 09/23/17 09/23/17 01:45 04:55 05:11 WBC RBC Hgb Hct MCV MCH MCHC RDW Lymph % (Auto) [place] % (Auto) Lymph # [place] # Baso # Seg Neutrophils % Monocytes % (Manual) Nucleated RBC % Seg Neutrophils # Monocytes # (Manual) PT INR APTT Heparin Anti-Xa Level POC ABG pH 7.333 L POC ABG pCO2 POC ABG pO2 132 H Sodium 134 L Potassium Chloride Carbon Dioxide 18 L BUN 103 H Creatinine 2.6 H Glucose 326 H POC Glucose 346 H Calcium Phosphorus 5.40 H Magnesium 2.60 H AST ALT Alkaline Phosphatase C-Reactive Protein Total Protein Albumin Triglycerides Urine pH Vancomycin Trough Salicylates Crossmatch 09/23/17 09/23/17 09/23/17 05:46 10:13 14:34 WBC RBC Hgb Hct MCV MCH MCHC RDW Lymph % (Auto) Wake % (Auto) Lymph # Wake # Baso # Seg Neutrophils % Monocytes % (Manual) Nucleated RBC % Seg Neutrophils # Monocytes # (Manual) PT INR APTT Heparin Anti-Xa Level POC ABG pH POC ABG pCO2 POC ABG pO2 Sodium Potassium Chloride Carbon Dioxide BUN Creatinine Glucose POC Glucose 307 H 307 H 307 H Calcium Phosphorus Magnesium AST ALT Alkaline Phosphatase C-Reactive Protein Total Protein Albumin Triglycerides Urine pH Vancomycin Trough Salicylates Crossmatch 09/23/17 09/23/17 09/24/17 17:25 22:40 03:00 WBC RBC Hgb Hct MCV MCH MCHC RDW Lymph % (Auto) Wake % (Auto) Lymph # Wake # Baso # Seg Neutrophils % Monocytes % (Manual) Nucleated RBC % Seg Neutrophils # Monocytes # (Manual) PT INR APTT Heparin Anti-Xa Level POC ABG pH POC ABG pCO2 POC ABG pO2 Sodium Potassium Chloride Carbon Dioxide BUN Creatinine Glucose POC Glucose 267 H 316 H 287 H Calcium Phosphorus Magnesium AST ALT Alkaline Phosphatase C-Reactive Protein Total Protein Albumin Triglycerides Urine pH Vancomycin Trough Salicylates Crossmatch 09/24/17 09/24/17 09/24/17 04:00 04:00 05:07 WBC RBC Hgb Hct 22.8 L MCV MCH 34 H MCHC RDW 19.5 H Lymph % (Auto) Wake % (Auto) Lymph # Wake # Baso # Seg Neutrophils % Monocytes % (Manual) Nucleated RBC % Seg Neutrophils # Monocytes # (Manual) PT INR APTT Heparin Anti-Xa Level POC ABG pH POC ABG pCO2 33.6 L POC ABG pO2 Sodium 132 L Potassium Chloride 86.8 L Carbon Dioxide 17 L BUN 105 H Creatinine 2.2 H Glucose 299 H POC Glucose Calcium Phosphorus 5.80 H Magnesium AST ALT Alkaline Phosphatase C-Reactive Protein Total Protein Albumin Triglycerides Urine pH Vancomycin Trough Salicylates Crossmatch 09/24/17 09/24/17 09/24/17 06:00 10:22 13:55 WBC RBC 2.89 L Hgb 8.0 L Hct 23.6 L MCV 82 L MCH MCHC RDW 19.2 H Lymph % (Auto) 10.9 L Wake % (Auto) Lymph # 0.8 L Wake # Baso # Seg Neutrophils % 85.4 H Monocytes % (Manual) Nucleated RBC % Seg Neutrophils # Monocytes # (Manual) PT INR APTT Heparin Anti-Xa Level POC ABG pH POC ABG pCO2 POC ABG pO2 Sodium Potassium Chloride Carbon Dioxide BUN Creatinine Glucose POC Glucose 345 H 351 H Calcium Phosphorus Magnesium AST ALT Alkaline Phosphatase C-Reactive Protein Total Protein Albumin Triglycerides Urine pH Vancomycin Trough Salicylates Crossmatch 09/24/17 09/24/17 09/25/17 14:04 19:45 00:50 WBC RBC Hgb Hct MCV MCH MCHC RDW Lymph % (Auto) Wake % (Auto) Lymph # Wake # Baso # Seg Neutrophils % Monocytes % (Manual) Nucleated RBC % Seg Neutrophils # Monocytes # (Manual) PT INR APTT Heparin Anti-Xa Level POC ABG pH 7.330 L POC ABG pCO2 POC ABG pO2 Sodium Potassium Chloride Carbon Dioxide BUN Creatinine Glucose POC Glucose 265 H 328 H Calcium Phosphorus Magnesium AST ALT Alkaline Phosphatase C-Reactive Protein Total Protein Albumin Triglycerides Urine pH Vancomycin Trough Salicylates Crossmatch 09/25/17 09/25/17 09/25/17 04:00 05:49 10:56 WBC RBC Hgb Hct MCV MCH MCHC RDW Lymph % (Auto) Wake % (Auto) Lymph # Wake # Baso # Seg Neutrophils % Monocytes % (Manual) Nucleated RBC % Seg Neutrophils # Monocytes # (Manual) PT INR APTT Heparin Anti-Xa Level POC ABG pH POC ABG pCO2 POC ABG pO2 Sodium 135 L Potassium Chloride 95.7 L Carbon Dioxide BUN 125 H Creatinine 2.1 H Glucose 360 H POC Glucose 296 H 379 H Calcium Phosphorus 5.70 H Magnesium AST ALT Alkaline Phosphatase C-Reactive Protein Total Protein Albumin Triglycerides Urine pH Vancomycin Trough Salicylates Crossmatch Chest x-ray: image reviewed Allied health notes reviewed: RT ED Critical Care Note - Critical Care Note Total Time (mins): 35 Critical care time in (mins) excluding proc time.: 35 Critical care attestation.: If time is entered above; I have spent that time in minutes in the direct care of this critically ill patient, excluding procedure time.
[2017-09-26] MEDS: NOVOLOG SUB-Q SCH ×6 (02:00→23:00)
[2017-09-26] MEDS: DUONEB *Not for PRN Use IH SCH ×3 (07:25→20:38)
[2017-09-26] MEDS: PULMICORT IH SCH ×2 (07:25→20:38)
[2017-09-26] MEDS: PROTONIX FEEDTUBE SCH ×2 (10:10→23:19)
[2017-09-26] MEDS: LEVEMIR SUB-Q SCH (10:10)
[2017-09-26] MEDS: LASIX IV SCH (10:10)
--- NOTE | 2017-09-26 10:18 | Progress Note ---
Assessment and Plan Acute Hypoxemic Respiratory Failure Acute VTE Sepsis Syndrome H/O Colon CA (? recurrent) Acute GI Bleed RACHEL Contrast nephropathy Anemia - begin seroquel taper - continue to avoid benzodiazepines - continue to wean oxygen for Sats > 92% - s/p IVC filter - continue aspiration precautions - continue bronchodilators and pulmonary hygeine per RT - continue empiric AB's - continue GI prophylaxis - continue steroid taper - advance oral feeds per ST - watch in ICU overnight - prn BIPAP - continue other care per attending / other consultants ...care plan discussed with at bedside ....re-evaluate in am & prn ...improved ...35 Subjective Date of service: 09/26/17 Principal diagnosis: Sepsis Syndrome; Acute Hypoxemic Resp Failure; Acute Encephalopathy; ESRD Interval history: Patient is seen today for: Sepsis Syndrome; Acute Hypoxemic Resp Failure; Acute Encephalopathy; ESRD Seen and examined at bedside; 24hour events reviewed; nursing and respiratory care staff consulted; no adverse overnight events reported to me; resting in bed ; doing well post extubation; on 2L NC; mental status improving; denies acute chest pains or increased SOB'; NO N/V/F/C; cleared for mechanical soft diet Objective Vital Signs - 12hr 09/25/17 09/25/17 09/25/17 22:20 22:30 22:40 Temperature Pulse Rate 75 72 84 Pulse Rate [ Anterior Bilateral Throughout] Pulse Rate [ Apical] Pulse Rate [ Left Dorsalis Pedis] Pulse Rate [ Left Radial] Pulse Rate [ Right Dorsalis Pedis] Pulse Rate [ Right Radial] Respiratory 15 15 19 Rate Respiratory Rate [Anterior Bilateral Throughout] Blood Pressure 144/63 144/63 144/63 O2 Sat by Pulse Oximetry 09/25/17 09/25/17 09/25/17 22:50 23:00 23:10 Temperature Pulse Rate 75 73 69 Pulse Rate [ Anterior Bilateral Throughout] Pulse Rate [ Apical] Pulse Rate [ Left Dorsalis Pedis] Pulse Rate [ Left Radial] Pulse Rate [ Right Dorsalis Pedis] Pulse Rate [ Right Radial] Respiratory 11 L 17 15 Rate Respiratory Rate [Anterior Bilateral Throughout] Blood Pressure 144/63 146/62 146/62 O2 Sat by Pulse 99 96 99 Oximetry 09/25/17 09/25/17 09/25/17 23:20 23:30 23:40 Temperature Pulse Rate 74 72 67 Pulse Rate [ Anterior Bilateral Throughout] Pulse Rate [ Apical] Pulse Rate [ Left Dorsalis Pedis] Pulse Rate [ Left Radial] Pulse Rate [ Right Dorsalis Pedis] Pulse Rate [ Right Radial] Respiratory 19 21 14 Rate Respiratory Rate [Anterior Bilateral Throughout] Blood Pressure 146/62 146/62 146/62 O2 Sat by Pulse 99 99 99 Oximetry 09/25/17 09/26/17 09/26/17 23:50 00:00 00:10 Temperature 99.0 F Pulse Rate 74 74 86 Pulse Rate [ Anterior Bilateral Throughout] Pulse Rate [ 71 Apical] Pulse Rate [ 71 Left Dorsalis Pedis] Pulse Rate [ 71 Left Radial] Pulse Rate [ 71 Right Dorsalis Pedis] Pulse Rate [ 71 Right Radial] Respiratory 19 17 24 Rate Respiratory Rate [Anterior Bilateral Throughout] Blood Pressure 146/62 159/70 159/70 O2 Sat by Pulse 99 99 97 Oximetry 09/26/17 09/26/17 09/26/17 00:12 00:20 00:30 Temperature Pulse Rate 87 82 76 Pulse Rate [ Anterior Bilateral Throughout] Pulse Rate [ Apical] Pulse Rate [ Left Dorsalis Pedis] Pulse Rate [ Left Radial] Pulse Rate [ Right Dorsalis Pedis] Pulse Rate [ Right Radial] Respiratory 18 20 20 Rate Respiratory Rate [Anterior Bilateral Throughout] Blood Pressure 159/70 159/70 146/62 O2 Sat by Pulse Oximetry 09/26/17 09/26/17 09/26/17 00:40 00:46 00:50 Temperature Pulse Rate 78 76 76 Pulse Rate [ Anterior Bilateral Throughout] Pulse Rate [ Apical] Pulse Rate [ Left Dorsalis Pedis] Pulse Rate [ Left Radial] Pulse Rate [ Right Dorsalis Pedis] Pulse Rate [ Right Radial] Respiratory 19 18 18 Rate Respiratory Rate [Anterior Bilateral Throughout] Blood Pressure 146/62 146/62 146/62 O2 Sat by Pulse 98 97 98 Oximetry 09/26/17 09/26/17 09/26/17 01:00 01:10 01:20 Temperature Pulse Rate 84 Pulse Rate [ Anterior Bilateral Throughout] Pulse Rate [ Apical] Pulse Rate [ Left Dorsalis Pedis] Pulse Rate [ Left Radial] Pulse Rate [ Right Dorsalis Pedis] Pulse Rate [ Right Radial] Respiratory 21 Rate Respiratory Rate [Anterior Bilateral Throughout] Blood Pressure 176/93 176/93 176/93 O2 Sat by Pulse 95 94 97 Oximetry 09/26/17 09/26/17 09/26/17 01:30 01:40 01:50 Temperature Pulse Rate 73 73 78 Pulse Rate [ Anterior Bilateral Throughout] Pulse Rate [ Apical] Pulse Rate [ Left Dorsalis Pedis] Pulse Rate [ Left Radial] Pulse Rate [ Right Dorsalis Pedis] Pulse Rate [ Right Radial] Respiratory 17 16 17 Rate Respiratory Rate [Anterior Bilateral Throughout] Blood Pressure 176/93 176/93 176/93 O2 Sat by Pulse 99 99 98 Oximetry 09/26/17 09/26/17 09/26/17 02:00 02:10 02:20 Temperature Pulse Rate 77 69 79 Pulse Rate [ Anterior Bilateral Throughout] Pulse Rate [ Apical] Pulse Rate [ Left Dorsalis Pedis] Pulse Rate [ Left Radial] Pulse Rate [ Right Dorsalis Pedis] Pulse Rate [ Right Radial] Respiratory 22 19 28 H Rate Respiratory Rate [Anterior Bilateral Throughout] Blood Pressure 169/79 169/79 169/79 O2 Sat by Pulse 99 100 98 Oximetry 09/26/17 09/26/17 09/26/17 02:30 02:40 02:50 Temperature Pulse Rate 75 66 64 Pulse Rate [ Anterior Bilateral Throughout] Pulse Rate [ Apical] Pulse Rate [ Left Dorsalis Pedis] Pulse Rate [ Left Radial] Pulse Rate [ Right Dorsalis Pedis] Pulse Rate [ Right Radial] Respiratory 18 17 17 Rate Respiratory Rate [Anterior Bilateral Throughout] Blood Pressure 169/79 169/79 169/79 O2 Sat by Pulse 97 99 99 Oximetry 09/26/17 09/26/17 09/26/17 03:00 03:10 03:20 Temperature Pulse Rate 74 73 66 Pulse Rate [ Anterior Bilateral Throughout] Pulse Rate [ Apical] Pulse Rate [ Left Dorsalis Pedis] Pulse Rate [ Left Radial] Pulse Rate [ Right Dorsalis Pedis] Pulse Rate [ Right Radial] Respiratory 19 19 19 Rate Respiratory Rate [Anterior Bilateral Throughout] Blood Pressure 169/75 169/75 169/75 O2 Sat by Pulse 99 99 100 Oximetry 09/26/17 09/26/17 09/26/17 03:30 03:40 03:50 Temperature Pulse Rate 66 67 69 Pulse Rate [ Anterior Bilateral Throughout] Pulse Rate [ Apical] Pulse Rate [ Left Dorsalis Pedis] Pulse Rate [ Left Radial] Pulse Rate [ Right Dorsalis Pedis] Pulse Rate [ Right Radial] Respiratory 19 16 18 Rate Respiratory Rate [Anterior Bilateral Throughout] Blood Pressure 169/75 169/75 169/75 O2 Sat by Pulse 99 100 100 Oximetry 09/26/17 09/26/17 09/26/17 04:00 04:10 04:20 Temperature 98.6 F Pulse Rate 66 68 77 Pulse Rate [ Anterior Bilateral Throughout] Pulse Rate [ 68 Apical] Pulse Rate [ 68 Left Dorsalis Pedis] Pulse Rate [ 68 Left Radial] Pulse Rate [ 68 Right Dorsalis Pedis] Pulse Rate [ 68 Right Radial] Respiratory 18 21 18 Rate Respiratory Rate [Anterior Bilateral Throughout] Blood Pressure 165/69 165/69 165/69 O2 Sat by Pulse 100 100 100 Oximetry 09/26/17 09/26/17 09/26/17 04:30 04:40 04:50 Temperature Pulse Rate 72 82 76 Pulse Rate [ Anterior Bilateral Throughout] Pulse Rate [ Apical] Pulse Rate [ Left Dorsalis Pedis] Pulse Rate [ Left Radial] Pulse Rate [ Right Dorsalis Pedis] Pulse Rate [ Right Radial] Respiratory 18 24 19 Rate Respiratory Rate [Anterior Bilateral Throughout] Blood Pressure 165/69 165/69 165/69 O2 Sat by Pulse 99 97 93 Oximetry 09/26/17 09/26/17 09/26/17 05:00 05:10 05:20 Temperature Pulse Rate 78 74 72 Pulse Rate [ Anterior Bilateral Throughout] Pulse Rate [ Apical] Pulse Rate [ Left Dorsalis Pedis] Pulse Rate [ Left Radial] Pulse Rate [ Right Dorsalis Pedis] Pulse Rate [ Right Radial] Respiratory 18 19 15 Rate Respiratory Rate [Anterior Bilateral Throughout] Blood Pressure 183/79 183/79 183/79 O2 Sat by Pulse 99 100 100 Oximetry 09/26/17 09/26/17 09/26/17 05:30 05:40 05:50 Temperature Pulse Rate 76 71 69 Pulse Rate [ Anterior Bilateral Throughout] Pulse Rate [ Apical] Pulse Rate [ Left Dorsalis Pedis] Pulse Rate [ Left Radial] Pulse Rate [ Right Dorsalis Pedis] Pulse Rate [ Right Radial] Respiratory 18 17 17 Rate Respiratory Rate [Anterior Bilateral Throughout] Blood Pressure 183/79 183/79 183/79 O2 Sat by Pulse 99 100 99 Oximetry 09/26/17 09/26/17 09/26/17 06:00 06:10 06:20 Temperature Pulse Rate 73 76 68 Pulse Rate [ Anterior Bilateral Throughout] Pulse Rate [ Apical] Pulse Rate [ Left Dorsalis Pedis] Pulse Rate [ Left Radial] Pulse Rate [ Right Dorsalis Pedis] Pulse Rate [ Right Radial] Respiratory 18 16 17 Rate Respiratory Rate [Anterior Bilateral Throughout] Blood Pressure 193/80 193/80 193/80 O2 Sat by Pulse 98 99 100 Oximetry 09/26/17 09/26/17 09/26/17 06:30 06:40 06:50 Temperature Pulse Rate 84 70 82 Pulse Rate [ Anterior Bilateral Throughout] Pulse Rate [ Apical] Pulse Rate [ Left Dorsalis Pedis] Pulse Rate [ Left Radial] Pulse Rate [ Right Dorsalis Pedis] Pulse Rate [ Right Radial] Respiratory 11 L 16 13 Rate Respiratory Rate [Anterior Bilateral Throughout] Blood Pressure 193/80 193/80 193/80 O2 Sat by Pulse 100 98 95 Oximetry 09/26/17 09/26/17 09/26/17 07:00 07:10 07:20 Temperature Pulse Rate 70 74 76 Pulse Rate [ Anterior Bilateral Throughout] Pulse Rate [ Apical] Pulse Rate [ Left Dorsalis Pedis] Pulse Rate [ Left Radial] Pulse Rate [ Right Dorsalis Pedis] Pulse Rate [ Right Radial] Respiratory 20 20 18 Rate Respiratory Rate [Anterior Bilateral Throughout] Blood Pressure 194/82 194/82 194/82 O2 Sat by Pulse 98 100 100 Oximetry 09/26/17 09/26/17 09/26/17 07:23 07:30 07:40 Temperature Pulse Rate 68 73 Pulse Rate [ 74 Anterior Bilateral Throughout] Pulse Rate [ Apical] Pulse Rate [ Left Dorsalis Pedis] Pulse Rate [ Left Radial] Pulse Rate [ Right Dorsalis Pedis] Pulse Rate [ Right Radial] Respiratory 16 18 Rate Respiratory 19 Rate [Anterior Bilateral Throughout] Blood Pressure 194/82 194/82 O2 Sat by Pulse 100 100 100 Oximetry 09/26/17 09/26/17 09/26/17 07:41 07:50 08:00 Temperature 98.1 F Pulse Rate 75 74 Pulse Rate [ 77 Anterior Bilateral Throughout] Pulse Rate [ Apical] Pulse Rate [ Left Dorsalis Pedis] Pulse Rate [ Left Radial] Pulse Rate [ Right Dorsalis Pedis] Pulse Rate [ Right Radial] Respiratory 22 24 Rate Respiratory 16 Rate [Anterior Bilateral Throughout] Blood Pressure 194/82 184/71 O2 Sat by Pulse 100 100 Oximetry 09/26/17 08:10 Temperature Pulse Rate 77 Pulse Rate [ Anterior Bilateral Throughout] Pulse Rate [ Apical] Pulse Rate [ Left Dorsalis Pedis] Pulse Rate [ Left Radial] Pulse Rate [ Right Dorsalis Pedis] Pulse Rate [ Right Radial] Respiratory 19 Rate Respiratory Rate [Anterior Bilateral Throughout] Blood Pressure 184/71 O2 Sat by Pulse 100 Oximetry Constitutional: no acute distress, other (somnolent) Eyes: non-icteric ENT: oropharynx moist Neck: supple, lymphadenopathy, no JVD, other (no thyromegaly) Effort: mildly labored Ascultation: Right: rales (base) Percussion: Bilateral: not dull Cardiovascular: regular rate and rhythm, other (No rubs or murmurs) Gastrointestinal: normoactive bowel sounds, soft, non-tender, non-distended, other (No HSM) Integumentary: rash (petecheal; improving) Extremities: no cyanosis, pulses normal, edema, other (warm) Neurologic: non-focal exam (grossly), unable to assess Psychiatric: mood appropriate, affect normal CBC and BMP: 09/24/17 06:00 09/26/17 11:45 ABG, PT/INR, D-dimer: ABG POC ABG pH 7.330 (7.35-7.45) L 09/24/17 14:04 POC ABG pCO2 43.2 (35-45) 09/24/17 14:04 POC ABG pO2 93 (80-105) 09/24/17 14:04 POC ABG HCO3 22.8 09/24/17 14:04 POC ABG Total CO2 24 09/24/17 14:04 POC ABG O2 Sat 97 09/24/17 14:04 PT/INR, D-dimer PT 21.8 Sec. (12.2-14.9) H 08/28/17 20:01 INR 1.80 (0.87-1.13) H 08/28/17 20:01 Abnormal lab findings: Abnormal Labs 08/27/17 08/27/17 08/27/17 03:02 03:02 03:02 WBC 14.6 H RBC 3.46 L Hgb 8.4 L Hct 26.5 L MCV 77 L MCH 24 L MCHC RDW 25.8 H Lymph % (Auto) Douglas % (Auto) Lymph # Douglas # Baso # Seg Neutrophils % Monocytes % (Manual) 8.0 H Nucleated RBC % 3.0 H Seg Neutrophils # Monocytes # (Manual) 1.2 H PT INR APTT Heparin Anti-Xa Level POC ABG pH POC ABG pCO2 POC ABG pO2 Sodium 136 L Potassium Chloride 93.3 L Carbon Dioxide BUN 21 H Creatinine Glucose 104 H POC Glucose Calcium Phosphorus Magnesium AST ALT 62 H Alkaline Phosphatase 133 H C-Reactive Protein Total Protein 8.5 H Albumin 3.2 L Triglycerides Urine pH Vancomycin Trough Salicylates < 0.3 L Crossmatch 08/27/17 08/27/17 08/27/17 05:00 07:43 11:20 WBC RBC Hgb Hct MCV MCH MCHC RDW Lymph % (Auto) Douglas % (Auto) Lymph # Douglas # Baso # Seg Neutrophils % Monocytes % (Manual) Nucleated RBC % Seg Neutrophils # Monocytes # (Manual) PT INR APTT Heparin Anti-Xa Level POC ABG pH POC ABG pCO2 POC ABG pO2 Sodium Potassium Chloride Carbon Dioxide BUN Creatinine Glucose POC Glucose 116 H 110 H Calcium Phosphorus Magnesium AST ALT Alkaline Phosphatase C-Reactive Protein Total Protein Albumin Triglycerides Urine pH 9.0 H Vancomycin Trough Salicylates Crossmatch 08/27/17 08/27/17 08/28/17 16:36 22:00 04:41 WBC RBC Hgb Hct MCV MCH MCHC RDW Lymph % (Auto) [place] % (Auto) Lymph # [place] # Baso # Seg Neutrophils % Monocytes % (Manual) Nucleated RBC % Seg Neutrophils # Monocytes # (Manual) PT INR APTT Heparin Anti-Xa Level POC ABG pH POC ABG pCO2 POC ABG pO2 Sodium Potassium Chloride Carbon Dioxide BUN Creatinine Glucose 139 H POC Glucose 108 H 130 H Calcium 8.2 L Phosphorus Magnesium AST ALT Alkaline Phosphatase C-Reactive Protein Total Protein Albumin Triglycerides Urine pH Vancomycin Trough Salicylates Crossmatch 08/28/17 08/28/17 08/28/17 04:41 06:46 07:16 WBC RBC Hgb Hct MCV MCH MCHC RDW Lymph % (Auto) [place] % (Auto) Lymph # [place] # Baso # Seg Neutrophils % Monocytes % (Manual) Nucleated RBC % Seg Neutrophils # Monocytes # (Manual) PT 25.2 H INR 2.17 H APTT Heparin Anti-Xa Level POC ABG pH POC ABG pCO2 POC ABG pO2 Sodium Potassium Chloride Carbon Dioxide BUN Creatinine Glucose POC Glucose 176 H 175 H Calcium Phosphorus Magnesium AST ALT Alkaline Phosphatase C-Reactive Protein Total Protein Albumin Triglycerides Urine pH Vancomycin Trough Salicylates Crossmatch 08/28/17 08/28/17 08/28/17 11:41 16:47 20:01 WBC RBC Hgb Hct MCV MCH MCHC RDW Lymph % (Auto) Douglas % (Auto) Lymph # [place] # Baso # Seg Neutrophils % Monocytes % (Manual) Nucleated RBC % Seg Neutrophils # Monocytes # (Manual) PT 21.8 H INR 1.80 H APTT 56.5 H Heparin Anti-Xa Level POC ABG pH POC ABG pCO2 POC ABG pO2 Sodium Potassium Chloride Carbon Dioxide BUN Creatinine Glucose POC Glucose 176 H 206 H Calcium Phosphorus Magnesium AST ALT Alkaline Phosphatase C-Reactive Protein Total Protein Albumin Triglycerides Urine pH Vancomycin Trough Salicylates Crossmatch 08/28/17 08/29/17 08/29/17 20:43 00:07 02:30 WBC RBC Hgb 6.4 L Hct 20.6 L MCV MCH MCHC RDW Lymph % (Auto) Douglas % (Auto) Lymph # [place] # Baso # Seg Neutrophils % Monocytes % (Manual) Nucleated RBC % Seg Neutrophils # Monocytes # (Manual) PT INR APTT Heparin Anti-Xa Level POC ABG pH POC ABG pCO2 POC ABG pO2 Sodium Potassium Chloride Carbon Dioxide BUN Creatinine Glucose POC Glucose 259 H Calcium Phosphorus Magnesium AST ALT Alkaline Phosphatase C-Reactive Protein Total Protein Albumin Triglycerides Urine pH Vancomycin Trough Salicylates Crossmatch See Detail 08/29/17 08/29/17 08/29/17 02:56 07:25 11:40 WBC RBC Hgb Hct MCV MCH MCHC RDW Lymph % (Auto) [place] % (Auto) Lymph # [place] # Baso # Seg Neutrophils % Monocytes % (Manual) Nucleated RBC % Seg Neutrophils # Monocytes # (Manual) PT INR APTT Heparin Anti-Xa Level POC ABG pH POC ABG pCO2 POC ABG pO2 Sodium Potassium 3.5 L Chloride Carbon Dioxide 21 L BUN 21 H Creatinine Glucose 214 H POC Glucose 220 H 174 H Calcium 8.0 L Phosphorus Magnesium 1.60 L AST ALT Alkaline Phosphatase C-Reactive Protein Total Protein Albumin Triglycerides Urine pH Vancomycin Trough Salicylates Crossmatch 08/29/17 08/29/17 08/29/17 16:10 16:40 17:48 WBC RBC Hgb 8.5 L Hct 26.7 L D MCV MCH MCHC RDW Lymph % (Auto) [place] % (Auto) Lymph # [place] # Baso # Seg Neutrophils % Monocytes % (Manual) Nucleated RBC % Seg Neutrophils # Monocytes # (Manual) PT INR APTT Heparin Anti-Xa Level POC ABG pH POC ABG pCO2 POC ABG pO2 Sodium Potassium Chloride Carbon Dioxide BUN Creatinine Glucose POC Glucose 178 H Calcium Phosphorus Magnesium AST ALT Alkaline Phosphatase C-Reactive Protein Total Protein 3.9 L D Albumin 1.5 L Triglycerides Urine pH Vancomycin Trough Salicylates Crossmatch 08/29/17 08/29/17 08/30/17 18:32 22:19 04:25 WBC RBC Hgb 7.9 L Hct 25.2 L MCV MCH MCHC RDW Lymph % (Auto) [place] % (Auto) Lymph # [place] # Baso # Seg Neutrophils % Monocytes % (Manual) Nucleated RBC % Seg Neutrophils # Monocytes # (Manual) PT INR APTT Heparin Anti-Xa Level POC ABG pH POC ABG pCO2 POC ABG pO2 Sodium Potassium Chloride Carbon Dioxide BUN Creatinine Glucose POC Glucose 247 H Calcium Phosphorus Magnesium AST ALT Alkaline Phosphatase C-Reactive Protein Total Protein Albumin Triglycerides Urine pH Vancomycin Trough 25.5 H Salicylates Crossmatch 08/30/17 08/30/17 08/30/17 04:25 07:53 11:53 WBC RBC Hgb Hct MCV MCH MCHC RDW Lymph % (Auto) [place] % (Auto) Lymph # [place] # Baso # Seg Neutrophils % Monocytes % (Manual) Nucleated RBC % Seg Neutrophils # Monocytes # (Manual) PT INR APTT Heparin Anti-Xa Level POC ABG pH POC ABG pCO2 POC ABG pO2 Sodium 136 L Potassium 3.2 L Chloride Carbon Dioxide 18 L BUN 29 H Creatinine Glucose 203 H POC Glucose 193 H 246 H Calcium Phosphorus Magnesium AST ALT Alkaline Phosphatase C-Reactive Protein Total Protein Albumin Triglycerides Urine pH Vancomycin Trough Salicylates Crossmatch 08/30/17 08/30/17 08/31/17 16:47 21:36 04:28 WBC RBC Hgb Hct MCV MCH MCHC RDW Lymph % (Auto) [place] % (Auto) Lymph # [place] # Baso # Seg Neutrophils % Monocytes % (Manual) Nucleated RBC % Seg Neutrophils # Monocytes # (Manual) PT INR APTT Heparin Anti-Xa Level POC ABG pH POC ABG pCO2 POC ABG pO2 Sodium Potassium 3.5 L Chloride 111.0 H Carbon Dioxide 19 L BUN 25 H Creatinine Glucose 53 L POC Glucose 159 H 110 H Calcium Phosphorus Magnesium AST ALT Alkaline Phosphatase C-Reactive Protein Total Protein 6.0 L D Albumin 2.2 L Triglycerides Urine pH Vancomycin Trough Salicylates Crossmatch 08/31/17 08/31/17 08/31/17 04:28 07:31 07:34 WBC RBC 2.99 L Hgb 7.8 L Hct 23.8 L MCV 80 L MCH 26 L MCHC RDW 22.7 H Lymph % (Auto) [place] % (Auto) 13.0 H Lymph # Douglas # 1.3 H Baso # Seg Neutrophils % Monocytes % (Manual) Nucleated RBC % Seg Neutrophils # Monocytes # (Manual) PT INR APTT Heparin Anti-Xa Level POC ABG pH POC ABG pCO2 POC ABG pO2 Sodium Potassium Chloride Carbon Dioxide BUN Creatinine Glucose POC Glucose < 40 L 42 L Calcium Phosphorus Magnesium AST ALT Alkaline Phosphatase C-Reactive Protein Total Protein Albumin Triglycerides Urine pH Vancomycin Trough Salicylates Crossmatch 08/31/17 08/31/17 08/31/17 09:10 16:45 22:56 WBC RBC Hgb Hct MCV MCH MCHC RDW Lymph % (Auto) [place] % (Auto) Lymph # [place] # Baso # Seg Neutrophils % Monocytes % (Manual) Nucleated RBC % Seg Neutrophils # Monocytes # (Manual) PT INR APTT Heparin Anti-Xa Level POC ABG pH POC ABG pCO2 POC ABG pO2 Sodium Potassium Chloride Carbon Dioxide BUN Creatinine Glucose POC Glucose 64 L 173 H 167 H Calcium Phosphorus Magnesium AST ALT Alkaline Phosphatase C-Reactive Protein Total Protein Albumin Triglycerides Urine pH Vancomycin Trough Salicylates Crossmatch 09/01/17 09/01/17 09/01/17 04:05 04:05 07:26 WBC RBC Hgb 8.4 L Hct 26.3 L MCV MCH MCHC RDW Lymph % (Auto) [place] % (Auto) Lymph # [place] # Baso # Seg Neutrophils % Monocytes % (Manual) Nucleated RBC % Seg Neutrophils # Monocytes # (Manual) PT INR APTT Heparin Anti-Xa Level POC ABG pH POC ABG pCO2 POC ABG pO2 Sodium Potassium Chloride 109.0 H Carbon Dioxide 17 L BUN 23 H Creatinine Glucose 187 H POC Glucose 256 H Calcium Phosphorus Magnesium AST ALT Alkaline Phosphatase C-Reactive Protein Total Protein Albumin Triglycerides 210 H Urine pH Vancomycin Trough Salicylates Crossmatch 09/01/17 09/01/17 09/01/17 10:43 10:43 11:53 WBC RBC Hgb Hct MCV MCH MCHC RDW Lymph % (Auto) [place] % (Auto) Lymph # [place] # Baso # Seg Neutrophils % Monocytes % (Manual) Nucleated RBC % Seg Neutrophils # Monocytes # (Manual) PT INR APTT Heparin Anti-Xa Level POC ABG pH POC ABG pCO2 POC ABG pO2 Sodium Potassium Chloride Carbon Dioxide BUN Creatinine Glucose POC Glucose 251 H Calcium Phosphorus Magnesium AST ALT Alkaline Phosphatase C-Reactive Protein 28.80 H Total Protein Albumin Triglycerides Urine pH Vancomycin Trough 27.7 H Salicylates Crossmatch 09/01/17 09/01/17 09/01/17 17:05 20:46 Unknown WBC RBC Hgb Hct MCV MCH MCHC RDW Lymph % (Auto) [place] % (Auto) Lymph # [place] # Baso # Seg Neutrophils % Monocytes % (Manual) Nucleated RBC % Seg Neutrophils # Monocytes # (Manual) PT INR APTT Heparin Anti-Xa Level 0.11 L POC ABG pH 7.485 H POC ABG pCO2 25.0 L POC ABG pO2 Sodium Potassium Chloride Carbon Dioxide BUN Creatinine Glucose POC Glucose 180 H Calcium Phosphorus Magnesium AST ALT Alkaline Phosphatase C-Reactive Protein Total Protein Albumin Triglycerides Urine pH Vancomycin Trough Salicylates Crossmatch 09/02/17 09/02/17 09/02/17 01:02 05:15 05:15 WBC RBC Hgb Hct MCV MCH MCHC RDW Lymph % (Auto) [place] % (Auto) Lymph # [place] # Baso # Seg Neutrophils % Monocytes % (Manual) Nucleated RBC % Seg Neutrophils # Monocytes # (Manual) PT INR APTT Heparin Anti-Xa Level 0.13 L POC ABG pH POC ABG pCO2 POC ABG pO2 Sodium Potassium Chloride 110.3 H Carbon Dioxide 19 L BUN 23 H Creatinine Glucose 172 H POC Glucose 222 H Calcium Phosphorus Magnesium AST ALT Alkaline Phosphatase C-Reactive Protein Total Protein Albumin Triglycerides Urine pH Vancomycin Trough Salicylates Crossmatch 09/02/17 09/02/17 09/02/17 07:46 10:03 11:41 WBC RBC Hgb Hct MCV MCH MCHC RDW Lymph % (Auto) [place] % (Auto) Lymph # [place] # Baso # Seg Neutrophils % Monocytes % (Manual) Nucleated RBC % Seg Neutrophils # Monocytes # (Manual) PT INR APTT Heparin Anti-Xa Level < 0.10 L POC ABG pH POC ABG pCO2 POC ABG pO2 Sodium Potassium Chloride Carbon Dioxide BUN Creatinine Glucose POC Glucose 217 H 211 H Calcium Phosphorus Magnesium AST ALT Alkaline Phosphatase C-Reactive Protein Total Protein Albumin Triglycerides Urine pH Vancomycin Trough Salicylates Crossmatch 09/02/17 09/02/17 09/02/17 16:43 19:24 22:06 WBC RBC Hgb Hct MCV MCH MCHC RDW Lymph % (Auto) [place] % (Auto) Lymph # [place] # Baso # Seg Neutrophils % Monocytes % (Manual) Nucleated RBC % Seg Neutrophils # Monocytes # (Manual) PT INR APTT Heparin Anti-Xa Level 0.19 L POC ABG pH POC ABG pCO2 POC ABG pO2 Sodium Potassium Chloride Carbon Dioxide BUN Creatinine Glucose POC Glucose 247 H 196 H Calcium Phosphorus Magnesium AST ALT Alkaline Phosphatase C-Reactive Protein Total Protein Albumin Triglycerides Urine pH Vancomycin Trough Salicylates Crossmatch 09/03/17 09/03/17 09/03/17 04:50 04:50 08:02 WBC RBC 2.80 L Hgb 7.1 L Hct 22.5 L MCV 80 L MCH 25 L MCHC 31 L RDW 22.7 H Lymph % (Auto) [place] % (Auto) 7.6 H Lymph # [place] # Baso # Seg Neutrophils % Monocytes % (Manual) Nucleated RBC % Seg Neutrophils # Monocytes # (Manual) PT INR APTT Heparin Anti-Xa Level POC ABG pH POC ABG pCO2 POC ABG pO2 Sodium Potassium Chloride 109.7 H Carbon Dioxide 20 L BUN 27 H Creatinine Glucose 193 H POC Glucose 226 H Calcium Phosphorus Magnesium AST ALT Alkaline Phosphatase 140 H C-Reactive Protein Total Protein Albumin 2.4 L Triglycerides Urine pH Vancomycin Trough Salicylates Crossmatch 09/03/17 09/03/17 09/03/17 11:54 16:26 22:03 WBC RBC Hgb Hct MCV MCH MCHC RDW Lymph % (Auto) [place] % (Auto) Lymph # [place] # Baso # Seg Neutrophils % Monocytes % (Manual) Nucleated RBC % Seg Neutrophils # Monocytes # (Manual) PT INR APTT Heparin Anti-Xa Level POC ABG pH POC ABG pCO2 POC ABG pO2 Sodium Potassium Chloride Carbon Dioxide BUN Creatinine Glucose POC Glucose 221 H 123 H 206 H Calcium Phosphorus Magnesium AST ALT Alkaline Phosphatase C-Reactive Protein Total Protein Albumin Triglycerides Urine pH Vancomycin Trough Salicylates Crossmatch 09/04/17 09/04/17 09/04/17 07:56 11:35 16:30 WBC RBC Hgb Hct MCV MCH MCHC RDW Lymph % (Auto) [place] % (Auto) Lymph # [place] # Baso # Seg Neutrophils % Monocytes % (Manual) Nucleated RBC % Seg Neutrophils # Monocytes # (Manual) PT INR APTT Heparin Anti-Xa Level POC ABG pH POC ABG pCO2 POC ABG pO2 Sodium Potassium Chloride Carbon Dioxide BUN Creatinine Glucose POC Glucose 205 H 263 H 158 H Calcium Phosphorus Magnesium AST ALT Alkaline Phosphatase C-Reactive Protein Total Protein Albumin Triglycerides Urine pH Vancomycin Trough Salicylates Crossmatch 09/04/17 09/05/17 09/05/17 22:33 08:00 08:00 WBC 12.5 H RBC 2.81 L Hgb 6.9 L Hct 22.6 L MCV 81 L MCH 24 L MCHC 30 L RDW 22.4 H Lymph % (Auto) [place] % (Auto) 8.0 H Lymph # [place] # 1.0 H Baso # Seg Neutrophils % Monocytes % (Manual) Nucleated RBC % Seg Neutrophils # Monocytes # (Manual) PT INR APTT Heparin Anti-Xa Level POC ABG pH POC ABG pCO2 POC ABG pO2 Sodium Potassium Chloride 109.0 H Carbon Dioxide 20 L BUN 27 H Creatinine Glucose 219 H POC Glucose 217 H Calcium Phosphorus Magnesium AST ALT Alkaline Phosphatase 169 H C-Reactive Protein Total Protein Albumin 2.4 L Triglycerides Urine pH Vancomycin Trough Salicylates Crossmatch 09/05/17 09/05/17 09/05/17 11:58 15:52 22:35 WBC RBC Hgb Hct MCV MCH MCHC RDW Lymph % (Auto) [place] % (Auto) Lymph # [place] # Baso # Seg Neutrophils % Monocytes % (Manual) Nucleated RBC % Seg Neutrophils # Monocytes # (Manual) PT INR APTT Heparin Anti-Xa Level POC ABG pH POC ABG pCO2 POC ABG pO2 Sodium Potassium Chloride Carbon Dioxide BUN Creatinine Glucose POC Glucose 251 H 200 H 259 H Calcium Phosphorus Magnesium AST ALT Alkaline Phosphatase C-Reactive Protein Total Protein Albumin Triglycerides Urine pH Vancomycin Trough Salicylates Crossmatch 09/05/17 09/06/17 09/06/17 23:55 08:19 09:32 WBC 12.0 H RBC 2.75 L 2.93 L Hgb 7.0 L 7.1 L Hct 22.2 L 23.5 L MCV 81 L 80 L MCH 25 L 24 L MCHC 31 L 30 L RDW 23.1 H 22.4 H Lymph % (Auto) [place] % (Auto) Lymph # [place] # Baso # Seg Neutrophils % Monocytes % (Manual) Nucleated RBC % Seg Neutrophils # 8.1 H Monocytes # (Manual) PT INR APTT Heparin Anti-Xa Level POC ABG pH POC ABG pCO2 POC ABG pO2 Sodium Potassium Chloride Carbon Dioxide BUN Creatinine Glucose POC Glucose 210 H Calcium Phosphorus Magnesium AST ALT Alkaline Phosphatase C-Reactive Protein Total Protein Albumin Triglycerides Urine pH Vancomycin Trough Salicylates Crossmatch 09/06/17 09/06/17 09/06/17 12:08 16:15 21:17 WBC RBC 2.83 L Hgb 7.2 L Hct 22.9 L MCV 81 L MCH 25 L MCHC 31 L RDW 22.4 H Lymph % (Auto) [place] % (Auto) 8.1 H Lymph # [place] # Baso # Seg Neutrophils % Monocytes % (Manual) Nucleated RBC % Seg Neutrophils # Monocytes # (Manual) PT INR APTT Heparin Anti-Xa Level POC ABG pH POC ABG pCO2 POC ABG pO2 Sodium Potassium Chloride Carbon Dioxide BUN Creatinine Glucose POC Glucose 179 H 157 H Calcium Phosphorus Magnesium AST ALT Alkaline Phosphatase C-Reactive Protein Total Protein Albumin Triglycerides Urine pH Vancomycin Trough Salicylates Crossmatch 09/06/17 09/07/17 09/07/17 23:17 07:40 07:40 WBC RBC 2.81 L Hgb 7.2 L Hct 22.4 L MCV 80 L MCH 26 L MCHC RDW 23.0 H Lymph % (Auto) [place] % (Auto) Lymph # [place] # Baso # Seg Neutrophils % 73.7 H Monocytes % (Manual) Nucleated RBC % Seg Neutrophils # Monocytes # (Manual) PT INR APTT Heparin Anti-Xa Level POC ABG pH POC ABG pCO2 POC ABG pO2 Sodium Potassium Chloride 108.0 H Carbon Dioxide 21 L BUN Creatinine Glucose 186 H POC Glucose 195 H Calcium Phosphorus Magnesium AST ALT Alkaline Phosphatase 143 H C-Reactive Protein Total Protein Albumin 2.5 L Triglycerides Urine pH Vancomycin Trough Salicylates Crossmatch 09/07/17 09/07/17 09/07/17 07:40 08:40 11:35 WBC RBC Hgb Hct MCV MCH MCHC RDW Lymph % (Auto) [place] % (Auto) Lymph # [place] # Baso # Seg Neutrophils % Monocytes % (Manual) Nucleated RBC % Seg Neutrophils # Monocytes # (Manual) PT INR APTT Heparin Anti-Xa Level POC ABG pH POC ABG pCO2 POC ABG pO2 Sodium Potassium Chloride 109.1 H Carbon Dioxide 21 L BUN Creatinine Glucose 183 H POC Glucose 218 H 229 H Calcium Phosphorus Magnesium AST ALT Alkaline Phosphatase 141 H C-Reactive Protein Total Protein Albumin 2.6 L Triglycerides Urine pH Vancomycin Trough Salicylates Crossmatch 09/07/17 09/07/17 09/07/17 14:57 16:35 21:30 WBC RBC 2.56 L Hgb 6.6 L Hct 20.5 L MCV 80 L MCH 26 L MCHC RDW 22.5 H Lymph % (Auto) [place] % (Auto) 8.1 H Lymph # [place] # 0.9 H Baso # 0.2 H Seg Neutrophils % Monocytes % (Manual) Nucleated RBC % Seg Neutrophils # Monocytes # (Manual) PT INR APTT Heparin Anti-Xa Level POC ABG pH POC ABG pCO2 POC ABG pO2 68 L Sodium Potassium Chloride Carbon Dioxide BUN Creatinine Glucose POC Glucose 256 H Calcium Phosphorus Magnesium AST ALT Alkaline Phosphatase C-Reactive Protein Total Protein Albumin Triglycerides Urine pH Vancomycin Trough Salicylates Crossmatch 09/07/17 09/08/17 09/08/17 22:35 08:13 11:50 WBC RBC Hgb Hct MCV MCH MCHC RDW Lymph % (Auto) [place] % (Auto) Lymph # [place] # Baso # Seg Neutrophils % Monocytes % (Manual) Nucleated RBC % Seg Neutrophils # Monocytes # (Manual) PT INR APTT Heparin Anti-Xa Level POC ABG pH POC ABG pCO2 POC ABG pO2 Sodium Potassium Chloride Carbon Dioxide BUN Creatinine Glucose POC Glucose 230 H 213 H 206 H Calcium Phosphorus Magnesium AST ALT Alkaline Phosphatase C-Reactive Protein Total Protein Albumin Triglycerides Urine pH Vancomycin Trough Salicylates Crossmatch 09/08/17 09/08/17 09/08/17 17:14 20:45 20:50 WBC 12.3 H RBC 2.74 L Hgb 6.7 L Hct 21.8 L MCV 79 L MCH 24 L MCHC 31 L RDW 23.0 H Lymph % (Auto) [place] % (Auto) 7.7 H Lymph # [place] # 0.9 H Baso # Seg Neutrophils % Monocytes % (Manual) Nucleated RBC % Seg Neutrophils # Monocytes # (Manual) PT INR APTT Heparin Anti-Xa Level 0.15 L POC ABG pH POC ABG pCO2 POC ABG pO2 Sodium Potassium Chloride Carbon Dioxide BUN Creatinine Glucose POC Glucose 210 H Calcium Phosphorus Magnesium AST ALT Alkaline Phosphatase C-Reactive Protein Total Protein Albumin Triglycerides Urine pH Vancomycin Trough Salicylates Crossmatch 09/08/17 09/09/17 09/09/17 22:08 06:50 06:50 WBC RBC 2.64 L Hgb 6.6 L Hct 21.2 L MCV 80 L MCH 25 L MCHC 31 L RDW 22.7 H Lymph % (Auto) [place] % (Auto) 9.3 H Lymph # [place] # 1.0 H Baso # Seg Neutrophils % Monocytes % (Manual) Nucleated RBC % Seg Neutrophils # Monocytes # (Manual) PT INR APTT Heparin Anti-Xa Level POC ABG pH POC ABG pCO2 POC ABG pO2 Sodium 136 L Potassium Chloride Carbon Dioxide BUN Creatinine 0.7 L Glucose 182 H POC Glucose 217 H Calcium Phosphorus Magnesium AST ALT Alkaline Phosphatase C-Reactive Protein Total Protein Albumin 2.5 L Triglycerides Urine pH Vancomycin Trough Salicylates Crossmatch 09/09/17 09/09/17 09/09/17 08:00 11:24 16:40 WBC RBC Hgb Hct MCV MCH MCHC RDW Lymph % (Auto) [place] % (Auto) Lymph # [place] # Baso # Seg Neutrophils % Monocytes % (Manual) Nucleated RBC % Seg Neutrophils # Monocytes # (Manual) PT INR APTT Heparin Anti-Xa Level POC ABG pH POC ABG pCO2 POC ABG pO2 Sodium Potassium Chloride Carbon Dioxide BUN Creatinine Glucose POC Glucose 245 H 257 H 220 H Calcium Phosphorus Magnesium AST ALT Alkaline Phosphatase C-Reactive Protein Total Protein Albumin Triglycerides Urine pH Vancomycin Trough Salicylates Crossmatch 09/09/17 09/09/17 09/09/17 17:50 19:14 19:14 WBC RBC 5.12 H Hgb Hct MCV 80 L MCH 25 L MCHC 31 L RDW 23.3 H Lymph % (Auto) [place] % (Auto) Lymph # [place] # Baso # Seg Neutrophils % Monocytes % (Manual) Nucleated RBC % Seg Neutrophils # Monocytes # (Manual) PT INR APTT Heparin Anti-Xa Level < 0.10 L < 0.10 L POC ABG pH POC ABG pCO2 POC ABG pO2 Sodium Potassium Chloride Carbon Dioxide BUN Creatinine Glucose POC Glucose Calcium Phosphorus Magnesium AST ALT Alkaline Phosphatase C-Reactive Protein Total Protein Albumin Triglycerides Urine pH Vancomycin Trough Salicylates Crossmatch 09/09/17 09/10/17 09/10/17 23:50 03:55 03:55 WBC 11.1 H RBC 2.59 L Hgb 6.7 L D Hct 20.9 L D MCV 81 L MCH 26 L MCHC RDW 22.6 H Lymph % (Auto) [place] % (Auto) 8.7 H Lymph # [place] # 1.0 H Baso # Seg Neutrophils % Monocytes % (Manual) Nucleated RBC % Seg Neutrophils # Monocytes # (Manual) PT INR APTT Heparin Anti-Xa Level POC ABG pH POC ABG pCO2 POC ABG pO2 Sodium Potassium Chloride Carbon Dioxide BUN Creatinine 0.7 L Glucose 191 H POC Glucose 192 H Calcium Phosphorus Magnesium AST ALT Alkaline Phosphatase C-Reactive Protein Total Protein Albumin Triglycerides Urine pH Vancomycin Trough Salicylates Crossmatch 09/10/17 09/10/17 09/10/17 08:39 11:33 14:30 WBC RBC Hgb 6.1 L Hct 19.8 L* MCV MCH MCHC RDW Lymph % (Auto) [place] % (Auto) Lymph # [place] # Baso # Seg Neutrophils % Monocytes % (Manual) Nucleated RBC % Seg Neutrophils # Monocytes # (Manual) PT INR APTT Heparin Anti-Xa Level POC ABG pH POC ABG pCO2 POC ABG pO2 Sodium Potassium Chloride Carbon Dioxide BUN Creatinine Glucose POC Glucose 233 H 231 H Calcium Phosphorus Magnesium AST ALT Alkaline Phosphatase C-Reactive Protein Total Protein Albumin Triglycerides Urine pH Vancomycin Trough Salicylates Crossmatch 09/10/17 09/10/17 09/10/17 16:20 16:50 21:25 WBC RBC Hgb Hct MCV MCH MCHC RDW Lymph % (Auto) [place] % (Auto) Lymph # [place] # Baso # Seg Neutrophils % Monocytes % (Manual) Nucleated RBC % Seg Neutrophils # Monocytes # (Manual) PT INR APTT Heparin Anti-Xa Level POC ABG pH POC ABG pCO2 POC ABG pO2 Sodium Potassium Chloride Carbon Dioxide BUN Creatinine Glucose POC Glucose 189 H 113 H Calcium Phosphorus Magnesium AST ALT Alkaline Phosphatase C-Reactive Protein Total Protein Albumin Triglycerides Urine pH Vancomycin Trough Salicylates Crossmatch See Detail 09/11/17 09/11/17 09/11/17 04:27 08:06 11:32 WBC RBC Hgb Hct MCV MCH MCHC RDW Lymph % (Auto) [place] % (Auto) Lymph # [place] # Baso # Seg Neutrophils % Monocytes % (Manual) Nucleated RBC % Seg Neutrophils # Monocytes # (Manual) PT INR APTT Heparin Anti-Xa Level POC ABG pH POC ABG pCO2 POC ABG pO2 Sodium Potassium Chloride Carbon Dioxide BUN Creatinine Glucose 174 H POC Glucose 232 H 298 H Calcium Phosphorus Magnesium AST ALT Alkaline Phosphatase C-Reactive Protein Total Protein Albumin Triglycerides Urine pH Vancomycin Trough Salicylates Crossmatch 09/11/17 09/11/17 09/11/17 14:18 14:20 17:34 WBC RBC Hgb 8.3 L Hct 25.6 L MCV MCH MCHC RDW Lymph % (Auto) [place] % (Auto) Lymph # [place] # Baso # Seg Neutrophils % Monocytes % (Manual) Nucleated RBC % Seg Neutrophils # Monocytes # (Manual) PT INR APTT Heparin Anti-Xa Level < 0.10 L POC ABG pH POC ABG pCO2 POC ABG pO2 Sodium Potassium Chloride Carbon Dioxide BUN Creatinine Glucose POC Glucose 184 H Calcium Phosphorus Magnesium AST ALT Alkaline Phosphatase C-Reactive Protein Total Protein Albumin Triglycerides Urine pH Vancomycin Trough Salicylates Crossmatch 09/11/17 09/11/17 09/12/17 20:11 22:15 06:08 WBC RBC 3.33 L Hgb 8.6 L Hct 26.9 L MCV 81 L MCH 26 L MCHC RDW 20.3 H Lymph % (Auto) [place] % (Auto) 8.9 H Lymph # [place] # Baso # Seg Neutrophils % Monocytes % (Manual) Nucleated RBC % Seg Neutrophils # Monocytes # (Manual) PT INR APTT Heparin Anti-Xa Level POC ABG pH POC ABG pCO2 POC ABG pO2 Sodium Potassium Chloride Carbon Dioxide BUN 22 H Creatinine Glucose 186 H POC Glucose 184 H Calcium Phosphorus Magnesium AST ALT Alkaline Phosphatase C-Reactive Protein Total Protein Albumin Triglycerides Urine pH Vancomycin Trough Salicylates Crossmatch 09/12/17 09/12/17 09/12/17 08:09 11:20 17:49 WBC RBC Hgb Hct MCV MCH MCHC RDW Lymph % (Auto) [place] % (Auto) Lymph # [place] # Baso # Seg Neutrophils % Monocytes % (Manual) Nucleated RBC % Seg Neutrophils # Monocytes # (Manual) PT INR APTT Heparin Anti-Xa Level POC ABG pH POC ABG pCO2 POC ABG pO2 Sodium Potassium Chloride Carbon Dioxide BUN Creatinine Glucose POC Glucose 228 H 238 H 197 H Calcium Phosphorus Magnesium AST ALT Alkaline Phosphatase C-Reactive Protein Total Protein Albumin Triglycerides Urine pH Vancomycin Trough Salicylates Crossmatch 09/12/17 09/13/17 09/13/17 22:50 03:25 07:30 WBC RBC Hgb Hct MCV MCH MCHC RDW Lymph % (Auto) [place] % (Auto) Lymph # [place] # Baso # Seg Neutrophils % Monocytes % (Manual) Nucleated RBC % Seg Neutrophils # Monocytes # (Manual) PT INR APTT Heparin Anti-Xa Level POC ABG pH POC ABG pCO2 POC ABG pO2 Sodium Potassium Chloride 97.5 L Carbon Dioxide BUN 22 H Creatinine Glucose 192 H POC Glucose 186 H 210 H Calcium Phosphorus Magnesium AST ALT Alkaline Phosphatase C-Reactive Protein Total Protein Albumin Triglycerides Urine pH Vancomycin Trough Salicylates Crossmatch 09/13/17 09/13/17 09/13/17 11:55 16:56 23:57 WBC RBC Hgb Hct MCV MCH MCHC RDW Lymph % (Auto) [place] % (Auto) Lymph # [place] # Baso # Seg Neutrophils % Monocytes % (Manual) Nucleated RBC % Seg Neutrophils # Monocytes # (Manual) PT INR APTT Heparin Anti-Xa Level POC ABG pH POC ABG pCO2 POC ABG pO2 Sodium Potassium Chloride Carbon Dioxide BUN Creatinine Glucose POC Glucose 224 H 179 H 153 H Calcium Phosphorus Magnesium AST ALT Alkaline Phosphatase C-Reactive Protein Total Protein Albumin Triglycerides Urine pH Vancomycin Trough Salicylates Crossmatch 09/14/17 09/14/17 09/14/17 04:04 06:20 08:34 WBC RBC Hgb Hct MCV MCH MCHC RDW Lymph % (Auto) [place] % (Auto) Lymph # [place] # Baso # Seg Neutrophils % Monocytes % (Manual) Nucleated RBC % Seg Neutrophils # Monocytes # (Manual) PT INR APTT Heparin Anti-Xa Level 0.72 H POC ABG pH POC ABG pCO2 POC ABG pO2 Sodium Potassium Chloride Carbon Dioxide BUN 24 H Creatinine Glucose 198 H POC Glucose 205 H Calcium Phosphorus Magnesium AST ALT Alkaline Phosphatase C-Reactive Protein Total Protein Albumin Triglycerides Urine pH Vancomycin Trough Salicylates Crossmatch 09/14/17 09/14/17 09/14/17 11:28 15:33 23:06 WBC RBC Hgb Hct MCV MCH MCHC RDW Lymph % (Auto) [place] % (Auto) Lymph # [place] # Baso # Seg Neutrophils % Monocytes % (Manual) Nucleated RBC % Seg Neutrophils # Monocytes # (Manual) PT INR APTT Heparin Anti-Xa Level POC ABG pH POC ABG pCO2 POC ABG pO2 Sodium Potassium Chloride Carbon Dioxide BUN Creatinine Glucose POC Glucose 205 H 187 H 177 H Calcium Phosphorus Magnesium AST ALT Alkaline Phosphatase C-Reactive Protein Total Protein Albumin Triglycerides Urine pH Vancomycin Trough Salicylates Crossmatch 09/15/17 09/15/17 09/15/17 04:00 07:52 12:00 WBC RBC Hgb Hct MCV MCH MCHC RDW Lymph % (Auto) [place] % (Auto) Lymph # [place] # Baso # Seg Neutrophils % Monocytes % (Manual) Nucleated RBC % Seg Neutrophils # Monocytes # (Manual) PT INR APTT Heparin Anti-Xa Level POC ABG pH POC ABG pCO2 POC ABG pO2 Sodium Potassium Chloride Carbon Dioxide BUN 29 H Creatinine Glucose 212 H POC Glucose 254 H 236 H Calcium Phosphorus Magnesium AST ALT Alkaline Phosphatase C-Reactive Protein Total Protein Albumin Triglycerides Urine pH Vancomycin Trough Salicylates Crossmatch 09/15/17 09/15/17 09/15/17 13:28 17:07 17:58 WBC RBC 3.38 L Hgb 8.6 L Hct 27.4 L MCV 81 L MCH 26 L MCHC 31 L RDW 19.7 H Lymph % (Auto) [place] % (Auto) Lymph # [place] # Baso # Seg Neutrophils % 70.1 H Monocytes % (Manual) Nucleated RBC % Seg Neutrophils # Monocytes # (Manual) PT INR APTT Heparin Anti-Xa Level POC ABG pH POC ABG pCO2 POC ABG pO2 Sodium Potassium Chloride Carbon Dioxide BUN Creatinine Glucose POC Glucose 203 H 208 H Calcium Phosphorus Magnesium AST ALT Alkaline Phosphatase C-Reactive Protein Total Protein Albumin Triglycerides Urine pH Vancomycin Trough Salicylates Crossmatch 09/15/17 09/16/17 09/16/17 22:42 07:28 07:44 WBC RBC Hgb Hct MCV MCH MCHC RDW Lymph % (Auto) [place] % (Auto) Lymph # [place] # Baso # Seg Neutrophils % Monocytes % (Manual) Nucleated RBC % Seg Neutrophils # Monocytes # (Manual) PT INR APTT Heparin Anti-Xa Level POC ABG pH POC ABG pCO2 POC ABG pO2 Sodium Potassium Chloride Carbon Dioxide BUN 44 H Creatinine Glucose 159 H POC Glucose 171 H 172 H Calcium Phosphorus Magnesium AST ALT Alkaline Phosphatase C-Reactive Protein Total Protein Albumin Triglycerides Urine pH Vancomycin Trough Salicylates Crossmatch 09/16/17 09/16/17 09/16/17 11:45 16:41 21:41 WBC RBC Hgb Hct MCV MCH MCHC RDW Lymph % (Auto) [place] % (Auto) Lymph # [place] # Baso # Seg Neutrophils % Monocytes % (Manual) Nucleated RBC % Seg Neutrophils # Monocytes # (Manual) PT INR APTT Heparin Anti-Xa Level POC ABG pH POC ABG pCO2 POC ABG pO2 Sodium Potassium Chloride Carbon Dioxide BUN Creatinine Glucose POC Glucose 190 H 186 H 137 H Calcium Phosphorus Magnesium AST ALT Alkaline Phosphatase C-Reactive Protein Total Protein Albumin Triglycerides Urine pH Vancomycin Trough Salicylates Crossmatch 09/17/17 09/17/17 09/17/17 04:30 04:40 05:27 WBC RBC Hgb 7.3 L Hct 22.7 L MCV MCH MCHC RDW Lymph % (Auto) [place] % (Auto) Lymph # [place] # Baso # Seg Neutrophils % Monocytes % (Manual) Nucleated RBC % Seg Neutrophils # Monocytes # (Manual) PT INR APTT Heparin Anti-Xa Level POC ABG pH POC ABG pCO2 POC ABG pO2 Sodium Potassium Chloride Carbon Dioxide BUN 45 H Creatinine Glucose 166 H POC Glucose Calcium Phosphorus Magnesium AST ALT Alkaline Phosphatase C-Reactive Protein Total Protein Albumin Triglycerides Urine pH Vancomycin Trough Salicylates Crossmatch See Detail 09/17/17 09/17/17 09/17/17 07:54 11:59 16:28 WBC RBC Hgb Hct MCV MCH MCHC RDW Lymph % (Auto) [place] % (Auto) Lymph # [place] # Baso # Seg Neutrophils % Monocytes % (Manual) Nucleated RBC % Seg Neutrophils # Monocytes # (Manual) PT INR APTT Heparin Anti-Xa Level POC ABG pH POC ABG pCO2 POC ABG pO2 Sodium Potassium Chloride Carbon Dioxide BUN Creatinine Glucose POC Glucose 189 H 185 H 158 H Calcium Phosphorus Magnesium AST ALT Alkaline Phosphatase C-Reactive Protein Total Protein Albumin Triglycerides Urine pH Vancomycin Trough Salicylates Crossmatch 09/17/17 09/18/17 09/18/17 22:27 07:18 11:52 WBC RBC Hgb Hct MCV MCH MCHC RDW Lymph % (Auto) [place] % (Auto) Lymph # [place] # Baso # Seg Neutrophils % Monocytes % (Manual) Nucleated RBC % Seg Neutrophils # Monocytes # (Manual) PT INR APTT Heparin Anti-Xa Level POC ABG pH POC ABG pCO2 POC ABG pO2 Sodium Potassium Chloride Carbon Dioxide BUN Creatinine Glucose POC Glucose 174 H 314 H 312 H Calcium Phosphorus Magnesium AST ALT Alkaline Phosphatase C-Reactive Protein Total Protein Albumin Triglycerides Urine pH Vancomycin Trough Salicylates Crossmatch 09/18/17 09/18/17 09/18/17 16:49 22:50 Unknown WBC RBC Hgb 10.8 L Hct 33.3 L MCV MCH MCHC RDW Lymph % (Auto) [place] % (Auto) Lymph # [place] # Baso # Seg Neutrophils % Monocytes % (Manual) Nucleated RBC % Seg Neutrophils # Monocytes # (Manual) PT INR APTT Heparin Anti-Xa Level POC ABG pH POC ABG pCO2 POC ABG pO2 Sodium Potassium Chloride Carbon Dioxide BUN Creatinine Glucose POC Glucose 235 H 191 H Calcium Phosphorus Magnesium AST ALT Alkaline Phosphatase C-Reactive Protein Total Protein Albumin Triglycerides Urine pH Vancomycin Trough Salicylates Crossmatch 09/18/17 09/18/17 09/19/17 Unknown Unknown 07:34 WBC RBC Hgb 11.0 L D Hct 32.9 L D MCV 83 L MCH MCHC RDW 19.3 H Lymph % (Auto) [place] % (Auto) Lymph # [place] # Baso # Seg Neutrophils % Monocytes % (Manual) Nucleated RBC % Seg Neutrophils # Monocytes # (Manual) PT INR APTT Heparin Anti-Xa Level POC ABG pH POC ABG pCO2 POC ABG pO2 Sodium Potassium Chloride Carbon Dioxide BUN 37 H Creatinine Glucose 275 H POC Glucose 266 H Calcium Phosphorus Magnesium AST ALT Alkaline Phosphatase C-Reactive Protein Total Protein Albumin 2.2 L Triglycerides Urine pH Vancomycin Trough Salicylates Crossmatch 09/19/17 09/19/17 09/19/17 10:15 11:23 11:26 WBC RBC Hgb 10.4 L Hct 31.7 L MCV MCH MCHC RDW 19.3 H Lymph % (Auto) [place] % (Auto) 8.1 H Lymph # [place] # Baso # Seg Neutrophils % Monocytes % (Manual) Nucleated RBC % Seg Neutrophils # Monocytes # (Manual) PT INR APTT Heparin Anti-Xa Level POC ABG pH POC ABG pCO2 POC ABG pO2 Sodium Potassium Chloride Carbon Dioxide 21 L BUN 50 H Creatinine Glucose 263 H POC Glucose 284 H Calcium Phosphorus Magnesium AST 50 H ALT 78 H Alkaline Phosphatase C-Reactive Protein Total Protein Albumin 2.5 L Triglycerides Urine pH Vancomycin Trough Salicylates Crossmatch 09/19/17 09/19/17 09/20/17 17:20 22:25 03:15 WBC RBC Hgb Hct MCV MCH MCHC RDW Lymph % (Auto) [place] % (Auto) Lymph # [place] # Baso # Seg Neutrophils % Monocytes % (Manual) Nucleated RBC % Seg Neutrophils # Monocytes # (Manual) PT INR APTT Heparin Anti-Xa Level POC ABG pH POC ABG pCO2 POC ABG pO2 Sodium Potassium Chloride Carbon Dioxide BUN 50 H Creatinine Glucose 217 H POC Glucose 143 H 223 H Calcium Phosphorus Magnesium AST 222 H ALT 335 H Alkaline Phosphatase C-Reactive Protein Total Protein 6.0 L Albumin 2.3 L Triglycerides Urine pH Vancomycin Trough Salicylates Crossmatch 09/20/17 09/20/17 09/20/17 03:15 07:40 11:35 WBC RBC 3.22 L Hgb 8.9 L Hct 27.4 L MCV MCH MCHC RDW 19.6 H Lymph % (Auto) [place] % (Auto) 10.5 H Lymph # [place] # 0.9 H Baso # Seg Neutrophils % Monocytes % (Manual) Nucleated RBC % Seg Neutrophils # Monocytes # (Manual) PT INR APTT Heparin Anti-Xa Level POC ABG pH POC ABG pCO2 POC ABG pO2 Sodium Potassium Chloride Carbon Dioxide BUN Creatinine Glucose POC Glucose 187 H 267 H Calcium Phosphorus Magnesium AST ALT Alkaline Phosphatase C-Reactive Protein Total Protein Albumin Triglycerides Urine pH Vancomycin Trough Salicylates Crossmatch 09/20/17 09/20/17 09/21/17 16:42 22:14 05:20 WBC RBC Hgb Hct MCV MCH MCHC RDW Lymph % (Auto) [place] % (Auto) Lymph # [place] # Baso # Seg Neutrophils % Monocytes % (Manual) Nucleated RBC % Seg Neutrophils # Monocytes # (Manual) PT INR APTT Heparin Anti-Xa Level POC ABG pH POC ABG pCO2 POC ABG pO2 Sodium 136 L Potassium Chloride Carbon Dioxide 21 L BUN 71 H Creatinine 1.8 H D Glucose 279 H POC Glucose 264 H 289 H Calcium Phosphorus Magnesium 2.40 H AST ALT Alkaline Phosphatase C-Reactive Protein Total Protein Albumin Triglycerides Urine pH Vancomycin Trough Salicylates Crossmatch 09/21/17 09/21/17 09/21/17 07:22 10:51 10:51 WBC RBC 3.06 L Hgb 8.5 L Hct 26.1 L MCV MCH MCHC RDW 19.7 H Lymph % (Auto) [place] % (Auto) 8.3 H Lymph # [place] # Baso # Seg Neutrophils % Monocytes % (Manual) Nucleated RBC % Seg Neutrophils # Monocytes # (Manual) PT INR APTT Heparin Anti-Xa Level POC ABG pH POC ABG pCO2 POC ABG pO2 Sodium Potassium Chloride Carbon Dioxide 19 L BUN 71 H Creatinine 2.0 H Glucose 265 H POC Glucose 341 H Calcium Phosphorus Magnesium AST ALT 132 H Alkaline Phosphatase C-Reactive Protein Total Protein 6.0 L Albumin 2.3 L Triglycerides Urine pH Vancomycin Trough Salicylates Crossmatch 09/21/17 09/21/17 09/21/17 11:38 16:25 22:57 WBC RBC Hgb Hct MCV MCH MCHC RDW Lymph % (Auto) [place] % (Auto) Lymph # [place] # Baso # Seg Neutrophils % Monocytes % (Manual) Nucleated RBC % Seg Neutrophils # Monocytes # (Manual) PT INR APTT Heparin Anti-Xa Level POC ABG pH POC ABG pCO2 POC ABG pO2 Sodium Potassium Chloride Carbon Dioxide BUN Creatinine Glucose POC Glucose 324 H 284 H 247 H Calcium Phosphorus Magnesium AST ALT Alkaline Phosphatase C-Reactive Protein Total Protein Albumin Triglycerides Urine pH Vancomycin Trough Salicylates Crossmatch 09/22/17 09/22/17 09/22/17 04:30 04:30 04:31 WBC RBC Hgb Hct MCV MCH MCHC RDW Lymph % (Auto) [place] % (Auto) Lymph # [place] # Baso # Seg Neutrophils % Monocytes % (Manual) Nucleated RBC % Seg Neutrophils # Monocytes # (Manual) PT INR APTT Heparin Anti-Xa Level POC ABG pH POC ABG pCO2 POC ABG pO2 Sodium 136 L Potassium Chloride Carbon Dioxide 18 L BUN 87 H Creatinine 2.3 H Glucose 331 H POC Glucose 309 H Calcium Phosphorus 5.20 H Magnesium 2.60 H AST ALT 96 H Alkaline Phosphatase C-Reactive Protein Total Protein Albumin 2.6 L Triglycerides Urine pH Vancomycin Trough Salicylates Crossmatch 09/22/17 09/22/17 09/22/17 07:10 07:21 08:43 WBC RBC 2.93 L Hgb 9.6 L Hct 28.1 L MCV 96 H MCH 33 H MCHC RDW 20.5 H Lymph % (Auto) [place] % (Auto) Lymph # [place] # Baso # Seg Neutrophils % 79.5 H Monocytes % (Manual) Nucleated RBC % Seg Neutrophils # Monocytes # (Manual) PT INR APTT Heparin Anti-Xa Level POC ABG pH POC ABG pCO2 POC ABG pO2 Sodium Potassium Chloride Carbon Dioxide BUN Creatinine Glucose POC Glucose 325 H 341 H Calcium Phosphorus Magnesium AST ALT Alkaline Phosphatase C-Reactive Protein Total Protein Albumin Triglycerides Urine pH Vancomycin Trough Salicylates Crossmatch 09/22/17 09/22/17 09/22/17 11:28 11:47 13:25 WBC RBC Hgb Hct MCV MCH MCHC RDW Lymph % (Auto) [place] % (Auto) Lymph # [place] # Baso # Seg Neutrophils % Monocytes % (Manual) Nucleated RBC % Seg Neutrophils # Monocytes # (Manual) PT INR APTT Heparin Anti-Xa Level POC ABG pH 7.256 L POC ABG pCO2 POC ABG pO2 70 L Sodium Potassium Chloride Carbon Dioxide BUN Creatinine Glucose POC Glucose 384 H Calcium Phosphorus Magnesium AST ALT Alkaline Phosphatase C-Reactive Protein 6.60 H Total Protein Albumin Triglycerides Urine pH Vancomycin Trough Salicylates Crossmatch 09/22/17 09/22/17 09/22/17 15:23 17:39 21:49 WBC RBC Hgb Hct MCV MCH MCHC RDW Lymph % (Auto) [place] % (Auto) Lymph # [place] # Baso # Seg Neutrophils % Monocytes % (Manual) Nucleated RBC % Seg Neutrophils # Monocytes # (Manual) PT INR APTT Heparin Anti-Xa Level POC ABG pH POC ABG pCO2 POC ABG pO2 Sodium Potassium Chloride Carbon Dioxide BUN Creatinine Glucose POC Glucose 364 H 332 H 290 H Calcium Phosphorus Magnesium AST ALT Alkaline Phosphatase C-Reactive Protein Total Protein Albumin Triglycerides Urine pH Vancomycin Trough Salicylates Crossmatch 09/23/17 09/23/17 09/23/17 01:45 04:55 05:11 WBC RBC Hgb Hct MCV MCH MCHC RDW Lymph % (Auto) Douglas % (Auto) Lymph # Douglas # Baso # Seg Neutrophils % Monocytes % (Manual) Nucleated RBC % Seg Neutrophils # Monocytes # (Manual) PT INR APTT Heparin Anti-Xa Level POC ABG pH 7.333 L POC ABG pCO2 POC ABG pO2 132 H Sodium 134 L Potassium Chloride Carbon Dioxide 18 L BUN 103 H Creatinine 2.6 H Glucose 326 H POC Glucose 346 H Calcium Phosphorus 5.40 H Magnesium 2.60 H AST ALT Alkaline Phosphatase C-Reactive Protein Total Protein Albumin Triglycerides Urine pH Vancomycin Trough Salicylates Crossmatch 09/23/17 09/23/17 09/23/17 05:46 10:13 14:34 WBC RBC Hgb Hct MCV MCH MCHC RDW Lymph % (Auto) Douglas % (Auto) Lymph # Douglas # Baso # Seg Neutrophils % Monocytes % (Manual) Nucleated RBC % Seg Neutrophils # Monocytes # (Manual) PT INR APTT Heparin Anti-Xa Level POC ABG pH POC ABG pCO2 POC ABG pO2 Sodium Potassium Chloride Carbon Dioxide BUN Creatinine Glucose POC Glucose 307 H 307 H 307 H Calcium Phosphorus Magnesium AST ALT Alkaline Phosphatase C-Reactive Protein Total Protein Albumin Triglycerides Urine pH Vancomycin Trough Salicylates Crossmatch 09/23/17 09/23/17 09/24/17 17:25 22:40 03:00 WBC RBC Hgb Hct MCV MCH MCHC RDW Lymph % (Auto) Douglas % (Auto) Lymph # Douglas # Baso # Seg Neutrophils % Monocytes % (Manual) Nucleated RBC % Seg Neutrophils # Monocytes # (Manual) PT INR APTT Heparin Anti-Xa Level POC ABG pH POC ABG pCO2 POC ABG pO2 Sodium Potassium Chloride Carbon Dioxide BUN Creatinine Glucose POC Glucose 267 H 316 H 287 H Calcium Phosphorus Magnesium AST ALT Alkaline Phosphatase C-Reactive Protein Total Protein Albumin Triglycerides Urine pH Vancomycin Trough Salicylates Crossmatch 09/24/17 09/24/17 09/24/17 04:00 04:00 05:07 WBC RBC Hgb Hct 22.8 L MCV MCH 34 H MCHC RDW 19.5 H Lymph % (Auto) Douglas % (Auto) Lymph # Douglas # Baso # Seg Neutrophils % Monocytes % (Manual) Nucleated RBC % Seg Neutrophils # Monocytes # (Manual) PT INR APTT Heparin Anti-Xa Level POC ABG pH POC ABG pCO2 33.6 L POC ABG pO2 Sodium 132 L Potassium Chloride 86.8 L Carbon Dioxide 17 L BUN 105 H Creatinine 2.2 H Glucose 299 H POC Glucose Calcium Phosphorus 5.80 H Magnesium AST ALT Alkaline Phosphatase C-Reactive Protein Total Protein Albumin Triglycerides Urine pH Vancomycin Trough Salicylates Crossmatch 09/24/17 09/24/17 09/24/17 06:00 10:22 13:55 WBC RBC 2.89 L Hgb 8.0 L Hct 23.6 L MCV 82 L MCH MCHC RDW 19.2 H Lymph % (Auto) 10.9 L Douglas % (Auto) Lymph # 0.8 L Douglas # Baso # Seg Neutrophils % 85.4 H Monocytes % (Manual) Nucleated RBC % Seg Neutrophils # Monocytes # (Manual) PT INR APTT Heparin Anti-Xa Level POC ABG pH POC ABG pCO2 POC ABG pO2 Sodium Potassium Chloride Carbon Dioxide BUN Creatinine Glucose POC Glucose 345 H 351 H Calcium Phosphorus Magnesium AST ALT Alkaline Phosphatase C-Reactive Protein Total Protein Albumin Triglycerides Urine pH Vancomycin Trough Salicylates Crossmatch 09/24/17 09/24/17 09/25/17 14:04 19:45 00:50 WBC RBC Hgb Hct MCV MCH MCHC RDW Lymph % (Auto) Douglas % (Auto) Lymph # Douglas # Baso # Seg Neutrophils % Monocytes % (Manual) Nucleated RBC % Seg Neutrophils # Monocytes # (Manual) PT INR APTT Heparin Anti-Xa Level POC ABG pH 7.330 L POC ABG pCO2 POC ABG pO2 Sodium Potassium Chloride Carbon Dioxide BUN Creatinine Glucose POC Glucose 265 H 328 H Calcium Phosphorus Magnesium AST ALT Alkaline Phosphatase C-Reactive Protein Total Protein Albumin Triglycerides Urine pH Vancomycin Trough Salicylates Crossmatch 09/25/17 09/25/17 09/25/17 04:00 05:49 10:56 WBC RBC Hgb Hct MCV MCH MCHC RDW Lymph % (Auto) Douglas % (Auto) Lymph # Douglas # Baso # Seg Neutrophils % Monocytes % (Manual) Nucleated RBC % Seg Neutrophils # Monocytes # (Manual) PT INR APTT Heparin Anti-Xa Level POC ABG pH POC ABG pCO2 POC ABG pO2 Sodium 135 L Potassium Chloride 95.7 L Carbon Dioxide BUN 125 H Creatinine 2.1 H Glucose 360 H POC Glucose 296 H 379 H Calcium Phosphorus 5.70 H Magnesium AST ALT Alkaline Phosphatase C-Reactive Protein Total Protein Albumin Triglycerides Urine pH Vancomycin Trough Salicylates Crossmatch 09/25/17 09/25/17 09/26/17 17:30 21:36 02:19 WBC RBC Hgb Hct MCV MCH MCHC RDW Lymph % (Auto) Douglas % (Auto) Lymph # Douglas # Baso # Seg Neutrophils % Monocytes % (Manual) Nucleated RBC % Seg Neutrophils # Monocytes # (Manual) PT INR APTT Heparin Anti-Xa Level POC ABG pH POC ABG pCO2 POC ABG pO2 Sodium Potassium Chloride Carbon Dioxide BUN Creatinine Glucose POC Glucose 392 H 259 H 199 H Calcium Phosphorus Magnesium AST ALT Alkaline Phosphatase C-Reactive Protein Total Protein Albumin Triglycerides Urine pH Vancomycin Trough Salicylates Crossmatch 09/26/17 05:50 WBC RBC Hgb Hct MCV MCH MCHC RDW Lymph % (Auto) Douglas % (Auto) Lymph # Douglas # Baso # Seg Neutrophils % Monocytes % (Manual) Nucleated RBC % Seg Neutrophils # Monocytes # (Manual) PT INR APTT Heparin Anti-Xa Level POC ABG pH POC ABG pCO2 POC ABG pO2 Sodium Potassium Chloride Carbon Dioxide BUN Creatinine Glucose POC Glucose 218 H Calcium Phosphorus Magnesium AST ALT Alkaline Phosphatase C-Reactive Protein Total Protein Albumin Triglycerides Urine pH Vancomycin Trough Salicylates Crossmatch Chest x-ray: image reviewed (RLL infiltrate) Allied health notes reviewed: RT
[2017-09-26 12:22] LABS: Chloride 99.8 mmol/L (98-107)
[2017-09-26 12:41] LABS: Potassium 2.8 mmol/L (3.6-5.0)
[2017-09-26] MEDS ORDERED: POTASSIUM CHLORIDE PO ONE (15:00)
[2017-09-26] MEDS: NORVASC PO SCH (15:05)
--- NOTE | 2017-09-26 15:52 | Progress Note ---
Assessment and Plan - Patient Problems (1) Acute kidney injury Current Visit: Yes Status: Acute Plan to address problem: Acute kidney injury acute tubular necrosis secondary to hypotension/contrast exposure. pt with adequate response to IV diuresis. cont lasix 40mg po qd. elevated BUN, likely due to pre-renal azotemia/IV steroid use, recent GI bleed. Cr down to 1.7mg/dl Renal US shows no evidence of hydro Supportive care for RACHEL/ATN Follow-up electrolytes and renal function. Discussed w/ ICU team (2) Hyponatremia Current Visit: Yes Status: Acute Plan to address problem: improved with glucose control and IV lasix (3) Hypokalemia Current Visit: Yes Status: Acute Plan to address problem: supplement with IV KCl 20 meq x 2 and KDur 40mdeq x 1 (4) DVT (deep venous thrombosis) Current Visit: Yes Status: Acute Qualifiers: Laterality: left Plan to address problem: continue anticoagulation, hematology on case (5) Elevated liver enzymes Current Visit: Yes Status: Acute Plan to address problem: monitor LFTs (6) Pulmonary embolism Current Visit: Yes Status: Acute Plan to address problem: on anticoagulation (7) Type 2 diabetes mellitus without complications Current Visit: Yes Status: Acute Plan to address problem: glucose control as per primary attending (8) Colon cancer metastasized to multiple sites Current Visit: Yes Status: Ruled-out Plan to address problem: management as per oncology (9) Anemia Current Visit: Yes Status: Acute Qualifiers: Iron deficiency anemia type: chronic blood loss Plan to address problem: monitor hb Subjective Date of service: 09/26/17 Principal diagnosis: GI bleeding, colon cancer Interval history: pt s/p extubation, awake, alert, in no acute respiratory distress Objective - Vital Signs Vital signs: Vital Signs - 12hr 09/26/17 09/26/17 09/26/17 03:50 04:00 04:10 Temperature 98.6 F Pulse Rate 69 66 68 Pulse Rate [ Anterior Bilateral Throughout] Pulse Rate [ 68 Apical] Pulse Rate [ 68 Left Dorsalis Pedis] Pulse Rate [ 68 Left Radial] Pulse Rate [ 68 Right Dorsalis Pedis] Pulse Rate [ 68 Right Radial] Respiratory 18 18 21 Rate Respiratory Rate [Anterior Bilateral Throughout] Blood Pressure 169/75 165/69 165/69 O2 Sat by Pulse 100 100 100 Oximetry 09/26/17 09/26/17 09/26/17 04:20 04:30 04:40 Temperature Pulse Rate 77 72 82 Pulse Rate [ Anterior Bilateral Throughout] Pulse Rate [ Apical] Pulse Rate [ Left Dorsalis Pedis] Pulse Rate [ Left Radial] Pulse Rate [ Right Dorsalis Pedis] Pulse Rate [ Right Radial] Respiratory 18 18 24 Rate Respiratory Rate [Anterior Bilateral Throughout] Blood Pressure 165/69 165/69 165/69 O2 Sat by Pulse 100 99 97 Oximetry 09/26/17 09/26/17 09/26/17 04:50 05:00 05:10 Temperature Pulse Rate 76 78 74 Pulse Rate [ Anterior Bilateral Throughout] Pulse Rate [ Apical] Pulse Rate [ Left Dorsalis Pedis] Pulse Rate [ Left Radial] Pulse Rate [ Right Dorsalis Pedis] Pulse Rate [ Right Radial] Respiratory 19 18 19 Rate Respiratory Rate [Anterior Bilateral Throughout] Blood Pressure 165/69 183/79 183/79 O2 Sat by Pulse 93 99 100 Oximetry 09/26/17 09/26/17 09/26/17 05:20 05:30 05:40 Temperature Pulse Rate 72 76 71 Pulse Rate [ Anterior Bilateral Throughout] Pulse Rate [ Apical] Pulse Rate [ Left Dorsalis Pedis] Pulse Rate [ Left Radial] Pulse Rate [ Right Dorsalis Pedis] Pulse Rate [ Right Radial] Respiratory 15 18 17 Rate Respiratory Rate [Anterior Bilateral Throughout] Blood Pressure 183/79 183/79 183/79 O2 Sat by Pulse 100 99 100 Oximetry 09/26/17 09/26/17 09/26/17 05:50 06:00 06:10 Temperature Pulse Rate 69 73 76 Pulse Rate [ Anterior Bilateral Throughout] Pulse Rate [ Apical] Pulse Rate [ Left Dorsalis Pedis] Pulse Rate [ Left Radial] Pulse Rate [ Right Dorsalis Pedis] Pulse Rate [ Right Radial] Respiratory 17 18 16 Rate Respiratory Rate [Anterior Bilateral Throughout] Blood Pressure 183/79 193/80 193/80 O2 Sat by Pulse 99 98 99 Oximetry 09/26/17 09/26/17 09/26/17 06:20 06:30 06:40 Temperature Pulse Rate 68 84 70 Pulse Rate [ Anterior Bilateral Throughout] Pulse Rate [ Apical] Pulse Rate [ Left Dorsalis Pedis] Pulse Rate [ Left Radial] Pulse Rate [ Right Dorsalis Pedis] Pulse Rate [ Right Radial] Respiratory 17 11 L 16 Rate Respiratory Rate [Anterior Bilateral Throughout] Blood Pressure 193/80 193/80 193/80 O2 Sat by Pulse 100 100 98 Oximetry 09/26/17 09/26/17 09/26/17 06:50 07:00 07:10 Temperature Pulse Rate 82 70 74 Pulse Rate [ Anterior Bilateral Throughout] Pulse Rate [ Apical] Pulse Rate [ Left Dorsalis Pedis] Pulse Rate [ Left Radial] Pulse Rate [ Right Dorsalis Pedis] Pulse Rate [ Right Radial] Respiratory 13 20 20 Rate Respiratory Rate [Anterior Bilateral Throughout] Blood Pressure 193/80 194/82 194/82 O2 Sat by Pulse 95 98 100 Oximetry 09/26/17 09/26/17 09/26/17 07:20 07:23 07:30 Temperature Pulse Rate 76 68 Pulse Rate [ 74 Anterior Bilateral Throughout] Pulse Rate [ Apical] Pulse Rate [ Left Dorsalis Pedis] Pulse Rate [ Left Radial] Pulse Rate [ Right Dorsalis Pedis] Pulse Rate [ Right Radial] Respiratory 18 16 Rate Respiratory 19 Rate [Anterior Bilateral Throughout] Blood Pressure 194/82 194/82 O2 Sat by Pulse 100 100 100 Oximetry 09/26/17 09/26/17 09/26/17 07:40 07:41 07:50 Temperature Pulse Rate 73 75 Pulse Rate [ 77 Anterior Bilateral Throughout] Pulse Rate [ Apical] Pulse Rate [ Left Dorsalis Pedis] Pulse Rate [ Left Radial] Pulse Rate [ Right Dorsalis Pedis] Pulse Rate [ Right Radial] Respiratory 18 22 Rate Respiratory 16 Rate [Anterior Bilateral Throughout] Blood Pressure 194/82 194/82 O2 Sat by Pulse 100 100 Oximetry 09/26/17 09/26/17 09/26/17 08:00 08:10 08:20 Temperature 98.1 F Pulse Rate 74 77 66 Pulse Rate [ Anterior Bilateral Throughout] Pulse Rate [ Apical] Pulse Rate [ Left Dorsalis Pedis] Pulse Rate [ Left Radial] Pulse Rate [ Right Dorsalis Pedis] Pulse Rate [ Right Radial] Respiratory 24 19 17 Rate Respiratory Rate [Anterior Bilateral Throughout] Blood Pressure 184/71 184/71 184/71 O2 Sat by Pulse 100 100 100 Oximetry 09/26/17 09/26/17 09/26/17 08:30 08:40 08:50 Temperature Pulse Rate 66 62 64 Pulse Rate [ Anterior Bilateral Throughout] Pulse Rate [ Apical] Pulse Rate [ Left Dorsalis Pedis] Pulse Rate [ Left Radial] Pulse Rate [ Right Dorsalis Pedis] Pulse Rate [ Right Radial] Respiratory 18 18 16 Rate Respiratory Rate [Anterior Bilateral Throughout] Blood Pressure 184/71 184/71 184/71 O2 Sat by Pulse 100 100 100 Oximetry 09/26/17 09/26/17 09/26/17 09:00 09:10 09:20 Temperature Pulse Rate 64 82 74 Pulse Rate [ Anterior Bilateral Throughout] Pulse Rate [ Apical] Pulse Rate [ Left Dorsalis Pedis] Pulse Rate [ Left Radial] Pulse Rate [ Right Dorsalis Pedis] Pulse Rate [ Right Radial] Respiratory 17 15 14 Rate Respiratory Rate [Anterior Bilateral Throughout] Blood Pressure 181/66 181/66 181/66 O2 Sat by Pulse 100 99 100 Oximetry 09/26/17 09/26/17 09/26/17 09:30 09:40 09:50 Temperature Pulse Rate 73 68 62 Pulse Rate [ Anterior Bilateral Throughout] Pulse Rate [ Apical] Pulse Rate [ Left Dorsalis Pedis] Pulse Rate [ Left Radial] Pulse Rate [ Right Dorsalis Pedis] Pulse Rate [ Right Radial] Respiratory 21 20 17 Rate Respiratory Rate [Anterior Bilateral Throughout] Blood Pressure 181/66 181/66 181/66 O2 Sat by Pulse 93 98 99 Oximetry 09/26/17 09/26/17 09/26/17 10:00 10:10 10:20 Temperature Pulse Rate 69 71 Pulse Rate [ Anterior Bilateral Throughout] Pulse Rate [ Apical] Pulse Rate [ Left Dorsalis Pedis] Pulse Rate [ Left Radial] Pulse Rate [ Right Dorsalis Pedis] Pulse Rate [ Right Radial] Respiratory 23 19 Rate Respiratory Rate [Anterior Bilateral Throughout] Blood Pressure 203/76 203/76 203/76 O2 Sat by Pulse 96 99 97 Oximetry 09/26/17 09/26/17 09/26/17 10:30 10:40 10:50 Temperature Pulse Rate 69 63 68 Pulse Rate [ Anterior Bilateral Throughout] Pulse Rate [ Apical] Pulse Rate [ Left Dorsalis Pedis] Pulse Rate [ Left Radial] Pulse Rate [ Right Dorsalis Pedis] Pulse Rate [ Right Radial] Respiratory 18 16 13 Rate Respiratory Rate [Anterior Bilateral Throughout] Blood Pressure 203/76 203/76 203/76 O2 Sat by Pulse 99 100 100 Oximetry 09/26/17 09/26/17 09/26/17 11:00 11:10 11:20 Temperature Pulse Rate 67 74 60 Pulse Rate [ Anterior Bilateral Throughout] Pulse Rate [ Apical] Pulse Rate [ Left Dorsalis Pedis] Pulse Rate [ Left Radial] Pulse Rate [ Right Dorsalis Pedis] Pulse Rate [ Right Radial] Respiratory 14 21 17 Rate Respiratory Rate [Anterior Bilateral Throughout] Blood Pressure 179/71 179/71 179/71 O2 Sat by Pulse 98 99 100 Oximetry 09/26/17 09/26/17 09/26/17 11:30 11:40 11:50 Temperature Pulse Rate 72 64 58 L Pulse Rate [ Anterior Bilateral Throughout] Pulse Rate [ Apical] Pulse Rate [ Left Dorsalis Pedis] Pulse Rate [ Left Radial] Pulse Rate [ Right Dorsalis Pedis] Pulse Rate [ Right Radial] Respiratory 20 20 15 Rate Respiratory Rate [Anterior Bilateral Throughout] Blood Pressure 179/71 179/71 179/71 O2 Sat by Pulse 99 99 99 Oximetry 09/26/17 09/26/17 09/26/17 12:00 12:10 12:20 Temperature 98.7 F Pulse Rate 71 78 64 Pulse Rate [ Anterior Bilateral Throughout] Pulse Rate [ Apical] Pulse Rate [ Left Dorsalis Pedis] Pulse Rate [ Left Radial] Pulse Rate [ Right Dorsalis Pedis] Pulse Rate [ Right Radial] Respiratory 25 H 17 17 Rate Respiratory Rate [Anterior Bilateral Throughout] Blood Pressure 175/73 175/73 175/73 O2 Sat by Pulse 100 98 100 Oximetry 09/26/17 09/26/17 09/26/17 12:30 12:40 12:50 Temperature Pulse Rate 59 L 72 59 L Pulse Rate [ Anterior Bilateral Throughout] Pulse Rate [ Apical] Pulse Rate [ Left Dorsalis Pedis] Pulse Rate [ Left Radial] Pulse Rate [ Right Dorsalis Pedis] Pulse Rate [ Right Radial] Respiratory 16 22 17 Rate Respiratory Rate [Anterior Bilateral Throughout] Blood Pressure 175/73 175/73 175/73 O2 Sat by Pulse 100 99 100 Oximetry 09/26/17 09/26/17 09/26/17 13:00 13:10 13:20 Temperature Pulse Rate 56 L 75 57 L Pulse Rate [ Anterior Bilateral Throughout] Pulse Rate [ Apical] Pulse Rate [ Left Dorsalis Pedis] Pulse Rate [ Left Radial] Pulse Rate [ Right Dorsalis Pedis] Pulse Rate [ Right Radial] Respiratory 16 19 Rate Respiratory Rate [Anterior Bilateral Throughout] Blood Pressure 160/62 160/62 160/62 O2 Sat by Pulse 98 99 99 Oximetry 09/26/17 09/26/17 09/26/17 13:30 13:40 13:50 Temperature Pulse Rate 53 L 56 L 62 Pulse Rate [ Anterior Bilateral Throughout] Pulse Rate [ Apical] Pulse Rate [ Left Dorsalis Pedis] Pulse Rate [ Left Radial] Pulse Rate [ Right Dorsalis Pedis] Pulse Rate [ Right Radial] Respiratory 18 17 18 Rate Respiratory Rate [Anterior Bilateral Throughout] Blood Pressure 160/62 160/62 160/62 O2 Sat by Pulse 97 99 99 Oximetry 09/26/17 09/26/17 09/26/17 14:00 14:08 14:10 Temperature Pulse Rate 52 L 74 Pulse Rate [ 54 L Anterior Bilateral Throughout] Pulse Rate [ Apical] Pulse Rate [ Left Dorsalis Pedis] Pulse Rate [ Left Radial] Pulse Rate [ Right Dorsalis Pedis] Pulse Rate [ Right Radial] Respiratory 16 23 Rate Respiratory 15 Rate [Anterior Bilateral Throughout] Blood Pressure 169/69 169/69 O2 Sat by Pulse 98 98 Oximetry 09/26/17 09/26/17 09/26/17 14:20 14:23 14:30 Temperature Pulse Rate 71 60 Pulse Rate [ 71 Anterior Bilateral Throughout] Pulse Rate [ Apical] Pulse Rate [ Left Dorsalis Pedis] Pulse Rate [ Left Radial] Pulse Rate [ Right Dorsalis Pedis] Pulse Rate [ Right Radial] Respiratory 16 16 Rate Respiratory 15 Rate [Anterior Bilateral Throughout] Blood Pressure 169/69 169/69 O2 Sat by Pulse 98 97 Oximetry 09/26/17 09/26/17 09/26/17 14:40 14:50 15:00 Temperature Pulse Rate 65 62 62 Pulse Rate [ Anterior Bilateral Throughout] Pulse Rate [ Apical] Pulse Rate [ Left Dorsalis Pedis] Pulse Rate [ Left Radial] Pulse Rate [ Right Dorsalis Pedis] Pulse Rate [ Right Radial] Respiratory 19 16 17 Rate Respiratory Rate [Anterior Bilateral Throughout] Blood Pressure 169/69 169/69 153/67 O2 Sat by Pulse 94 96 94 Oximetry 09/26/17 09/26/17 15:05 15:10 Temperature Pulse Rate 60 70 Pulse Rate [ Anterior Bilateral Throughout] Pulse Rate [ Apical] Pulse Rate [ Left Dorsalis Pedis] Pulse Rate [ Left Radial] Pulse Rate [ Right Dorsalis Pedis] Pulse Rate [ Right Radial] Respiratory 23 Rate Respiratory Rate [Anterior Bilateral Throughout] Blood Pressure 153/67 153/67 O2 Sat by Pulse 96 Oximetry - General Appearance General appearance: appears stated age, chronically ill EENT: ATNC, PERRL, mucous membranes moist Neck: no JVD Respiratory: Present: Rales, Decreased Breath Sounds Cardiology: regular, S1S2 Gastrointestinal: normoactive bowel sounds Integumentary: no rash, other (LLE edema ) Neurologic: no focal deficit, alert and oriented x3, strength 5/5, CN 3-12 intact Psychiatric: mood/affect appropriate, cooperative - Lab 09/24/17 06:00 09/26/17 11:45 Most recent lab results Calcium 9.0 mg/dL (8.4-10.2) 09/26/17 11:45 Phosphorus 5.70 mg/dL (2.5-4.5) H 09/25/17 04:00 Magnesium 2.20 mg/dL (1.7-2.3) 09/25/17 04:00 Urine Sodium 10 mmol/L 09/23/17 09:26
[2017-09-26] MEDS: KCL 20MEQ/100ML 20 MEQ/100 ML BAG IV SCH ×2 (17:05→18:14)
--- NOTE | 2017-09-26 18:04 | Progress Note ---
Assessment and Plan - Patient Problems (1) Colon cancer metastasized to multiple sites Current Visit: Yes Status: Ruled-out Plan to address problem: No definite evidence of multiple metastasis to lung or liver at this point. Repeat CT of the chest was reviewed extensively with Dr. Bradford and he is not convinced at this time that the lesion in the lung is a metastatic lesion. 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 (2) Altered mental status Current Visit: Yes Status: Resolved Qualifiers: Altered mental status type: transient alteration of awareness Qualified Code(s): R40.4 - Transient alteration of awareness Plan to address problem: Patient is more alert and following appropriately. (3) Fever Current Visit: Yes Status: Resolved Qualifiers: Fever type: unspecified Qualified Code(s): R50.9 - Fever, unspecified Plan to address problem: Fever has now resolved afebrile the past few days (4) Hypertension Current Visit: Yes Status: Acute Qualifiers: Hypertension type: essential hypertension Qualified Code(s): I10 - Essential (primary) hypertension Plan to address problem: Blood pressures is marginal with hold all blood pressure medication at this point (5) Type 2 diabetes mellitus without complications Current Visit: Yes Status: Acute Plan to address problem: Patient reported with hyperglycemia will adjust current coverage with long- acting insulin and sliding scale coverage (6) Deep vein blood clot of left lower extremity Current Visit: Yes Status: Acute Plan to address problem: Patient now status post placement of IVC filter due to new onset of lower GI bleed ,anticoagulation now on hold (7) Anemia Current Visit: Yes Status: Acute Qualifiers: Iron deficiency anemia type: chronic blood loss (8) Abdominal pain Current Visit: Yes Status: Acute Qualifiers: Abdominal location: upper abdomen, unspecified Qualified Code(s): R10.10 - Upper abdominal pain, unspecified (9) Lower GI bleed Current Visit: Yes Status: Acute Plan to address problem: GI evaluation reviewed ,patient had bleeding scan which was negative and no further active lower GI bleeding reported stool reported to be brown but no active bleeding (10) Petechial rash Current Visit: Yes Status: Acute Plan to address problem: Possible localized reaction to local anaesthtic agent will observe closely and watch for any systemic component to this localized rash will also recheck platelet count as well as CBC (11) Abnormal liver function test Current Visit: Yes Status: Resolved (12) Respiratory failure requiring intubation Current Visit: Yes Status: Acute Plan to address problem: Patient stable post extubation and stable on naal cannula Oxygen .Will continue to monitor closely . (13) Acute kidney injury Current Visit: Yes Status: Acute Plan to address problem: Improving clinically , good urinary output and Bun And Creatinine trending down . Subjective Date of service: 09/26/17 Principal diagnosis: GI bleeding, colon cancer Interval history: Patient seen post extubation .Alert up in bed being fed breakfast .Alert and responding appropriately .Patient denied any shortness of breath and no chest pain ,no fever reported ,vitals stable .Patients seen at bedside . Objective - Exam Narrative Exam: GENERAL:Awake alert , sitting up in bed not in acute distress HEENT: Mucous membrane is moist, pharynx is clear. NECK: [No JVD, no thyroid enlargement and no lymphadenopathy.] CHEST/LUNGS: Good range of motion bilaterally [No chest wall tenderness, percussion is normal, symmetrical chest wall.] HEART/CARDIOVASCULAR: Tachycardia. Second heart sounds only there is no audible murmur.] ABDOMEN: [Abdomen is soft, non distended, multiple healed laparotomy scars no guarding, no rebound tenderness, , active bowel sounds.] SKIN: Warm and dry NEURO: Alert and oriented x3 moving all four extremities EXTREMITIES: Pedal edema left lower extremity up to below the knee, no edema on the right, good peripheral pulses bilaterally no finger or toe clubbing. - Constitutional Vitals: Vital Signs - 12hr 09/26/17 09/26/17 09/26/17 06:00 06:10 06:20 Temperature Pulse Rate 73 76 68 Pulse Rate [ Anterior Bilateral Throughout] Respiratory 18 16 17 Rate Respiratory Rate [Anterior Bilateral Throughout] Blood Pressure 193/80 193/80 193/80 O2 Sat by Pulse 98 99 100 Oximetry 09/26/17 09/26/17 09/26/17 06:30 06:40 06:50 Temperature Pulse Rate 84 70 82 Pulse Rate [ Anterior Bilateral Throughout] Respiratory 11 L 16 13 Rate Respiratory Rate [Anterior Bilateral Throughout] Blood Pressure 193/80 193/80 193/80 O2 Sat by Pulse 100 98 95 Oximetry 09/26/17 09/26/17 09/26/17 07:00 07:10 07:20 Temperature Pulse Rate 70 74 76 Pulse Rate [ Anterior Bilateral Throughout] Respiratory 20 20 18 Rate Respiratory Rate [Anterior Bilateral Throughout] Blood Pressure 194/82 194/82 194/82 O2 Sat by Pulse 98 100 100 Oximetry 09/26/17 09/26/17 09/26/17 07:23 07:30 07:40 Temperature Pulse Rate 68 73 Pulse Rate [ 74 Anterior Bilateral Throughout] Respiratory 16 18 Rate Respiratory 19 Rate [Anterior Bilateral Throughout] Blood Pressure 194/82 194/82 O2 Sat by Pulse 100 100 100 Oximetry 09/26/17 09/26/17 09/26/17 07:41 07:50 08:00 Temperature 98.1 F Pulse Rate 75 74 Pulse Rate [ 77 Anterior Bilateral Throughout] Respiratory 22 24 Rate Respiratory 16 Rate [Anterior Bilateral Throughout] Blood Pressure 194/82 184/71 O2 Sat by Pulse 100 100 Oximetry 09/26/17 09/26/17 09/26/17 08:10 08:20 08:30 Temperature Pulse Rate 77 66 66 Pulse Rate [ Anterior Bilateral Throughout] Respiratory 19 17 18 Rate Respiratory Rate [Anterior Bilateral Throughout] Blood Pressure 184/71 184/71 184/71 O2 Sat by Pulse 100 100 100 Oximetry 09/26/17 09/26/17 09/26/17 08:40 08:50 09:00 Temperature Pulse Rate 62 64 64 Pulse Rate [ Anterior Bilateral Throughout] Respiratory 18 16 17 Rate Respiratory Rate [Anterior Bilateral Throughout] Blood Pressure 184/71 184/71 181/66 O2 Sat by Pulse 100 100 100 Oximetry 09/26/17 09/26/17 09/26/17 09:10 09:20 09:30 Temperature Pulse Rate 82 74 73 Pulse Rate [ Anterior Bilateral Throughout] Respiratory 15 14 21 Rate Respiratory Rate [Anterior Bilateral Throughout] Blood Pressure 181/66 181/66 181/66 O2 Sat by Pulse 99 100 93 Oximetry 09/26/17 09/26/17 09/26/17 09:40 09:50 10:00 Temperature Pulse Rate 68 62 69 Pulse Rate [ Anterior Bilateral Throughout] Respiratory 20 17 23 Rate Respiratory Rate [Anterior Bilateral Throughout] Blood Pressure 181/66 181/66 203/76 O2 Sat by Pulse 98 99 96 Oximetry 09/26/17 09/26/17 09/26/17 10:10 10:20 10:30 Temperature Pulse Rate 71 69 Pulse Rate [ Anterior Bilateral Throughout] Respiratory 19 18 Rate Respiratory Rate [Anterior Bilateral Throughout] Blood Pressure 203/76 203/76 203/76 O2 Sat by Pulse 99 97 99 Oximetry 1209/26/17 09/26/17 10:40 10:50 11:00 Temperature Pulse Rate 63 68 67 Pulse Rate [ Anterior Bilateral Throughout] Respiratory 16 13 14 Rate Respiratory Rate [Anterior Bilateral Throughout] Blood Pressure 203/76 203/76 179/71 O2 Sat by Pulse 100 100 98 Oximetry 09/26/17 09/26/17 09/26/17 11:10 11:20 11:30 Temperature Pulse Rate 74 60 72 Pulse Rate [ Anterior Bilateral Throughout] Respiratory 21 17 20 Rate Respiratory Rate [Anterior Bilateral Throughout] Blood Pressure 179/71 179/71 179/71 O2 Sat by Pulse 99 100 99 Oximetry 09/26/17 09/26/17 09/26/17 11:40 11:50 12:00 Temperature 98.7 F Pulse Rate 64 58 L 71 Pulse Rate [ Anterior Bilateral Throughout] Respiratory 20 15 25 H Rate Respiratory Rate [Anterior Bilateral Throughout] Blood Pressure 179/71 179/71 175/73 O2 Sat by Pulse 99 99 100 Oximetry 09/26/17 09/26/17 09/26/17 12:10 12:20 12:30 Temperature Pulse Rate 78 64 59 L Pulse Rate [ Anterior Bilateral Throughout] Respiratory 17 17 16 Rate Respiratory Rate [Anterior Bilateral Throughout] Blood Pressure 175/73 175/73 175/73 O2 Sat by Pulse 98 100 100 Oximetry 09/26/17 09/26/17 09/26/17 12:40 12:50 13:00 Temperature Pulse Rate 72 59 L 56 L Pulse Rate [ Anterior Bilateral Throughout] Respiratory 22 17 16 Rate Respiratory Rate [Anterior Bilateral Throughout] Blood Pressure 175/73 175/73 160/62 O2 Sat by Pulse 99 100 98 Oximetry 09/26/17 09/26/17 09/26/17 13:10 13:20 13:30 Temperature Pulse Rate 75 57 L 53 L Pulse Rate [ Anterior Bilateral Throughout] Respiratory 19 18 Rate Respiratory Rate [Anterior Bilateral Throughout] Blood Pressure 160/62 160/62 160/62 O2 Sat by Pulse 99 99 97 Oximetry 09/26/17 09/26/17 09/26/17 13:40 13:50 14:00 Temperature Pulse Rate 56 L 62 52 L Pulse Rate [ Anterior Bilateral Throughout] Respiratory 17 18 16 Rate Respiratory Rate [Anterior Bilateral Throughout] Blood Pressure 160/62 160/62 169/69 O2 Sat by Pulse 99 99 98 Oximetry 09/26/17 09/26/17 09/26/17 14:08 14:10 14:20 Temperature Pulse Rate 74 71 Pulse Rate [ 54 L Anterior Bilateral Throughout] Respiratory 23 16 Rate Respiratory 15 Rate [Anterior Bilateral Throughout] Blood Pressure 169/69 169/69 O2 Sat by Pulse 98 98 Oximetry 09/26/17 09/26/17 09/26/17 14:23 14:30 14:40 Temperature Pulse Rate 60 65 Pulse Rate [ 71 Anterior Bilateral Throughout] Respiratory 16 19 Rate Respiratory 15 Rate [Anterior Bilateral Throughout] Blood Pressure 169/69 169/69 O2 Sat by Pulse 97 94 Oximetry 09/26/17 09/26/17 09/26/17 14:50 15:00 15:05 Temperature Pulse Rate 62 62 60 Pulse Rate [ Anterior Bilateral Throughout] Respiratory 16 17 Rate Respiratory Rate [Anterior Bilateral Throughout] Blood Pressure 169/69 153/67 153/67 O2 Sat by Pulse 96 94 Oximetry 09/26/17 09/26/17 09/26/17 15:10 15:20 15:30 Temperature Pulse Rate 70 70 67 Pulse Rate [ Anterior Bilateral Throughout] Respiratory 23 19 20 Rate Respiratory Rate [Anterior Bilateral Throughout] Blood Pressure 153/67 153/67 153/67 O2 Sat by Pulse 96 96 95 Oximetry 09/26/17 09/26/17 09/26/17 15:40 15:50 16:00 Temperature Pulse Rate 77 64 62 Pulse Rate [ Anterior Bilateral Throughout] Respiratory 19 19 15 Rate Respiratory Rate [Anterior Bilateral Throughout] Blood Pressure 153/67 153/67 173/71 O2 Sat by Pulse 96 93 94 Oximetry 09/26/17 09/26/17 09/26/17 16:10 16:20 16:30 Temperature Pulse Rate 69 67 69 Pulse Rate [ Anterior Bilateral Throughout] Respiratory 15 14 19 Rate Respiratory Rate [Anterior Bilateral Throughout] Blood Pressure 173/71 173/71 173/71 O2 Sat by Pulse 96 96 97 Oximetry 09/26/17 09/26/17 09/26/17 16:40 16:50 17:00 Temperature Pulse Rate 64 60 75 Pulse Rate [ Anterior Bilateral Throughout] Respiratory 18 15 22 Rate Respiratory Rate [Anterior Bilateral Throughout] Blood Pressure 173/71 173/71 172/76 O2 Sat by Pulse 97 97 95 Oximetry 09/26/17 17:10 Temperature Pulse Rate 70 Pulse Rate [ Anterior Bilateral Throughout] Respiratory 20 Rate Respiratory Rate [Anterior Bilateral Throughout] Blood Pressure 172/76 O2 Sat by Pulse 97 Oximetry - Labs CBC & Chem 7: 09/24/17 06:00 09/26/17 11:45 Labs: Abnormal lab results 09/25/17 09/26/17 09/26/17 Range/Units 21:36 02:19 05:50 Potassium (3.6-5.0) mmol/L BUN (9-20) mg/dL Creatinine (0.8-1.5) mg/dL Glucose (75-100) mg/dL POC Glucose 259 H 199 H 218 H (70-105) 09/26/17 Range/Units 11:45 Potassium 2.8 L* D (3.6-5.0) mmol/L BUN 118 H (9-20) mg/dL Creatinine 1.7 H (0.8-1.5) mg/dL Glucose 171 H (75-100) mg/dL POC Glucose (70-105)
--- NOTE | 2017-09-26 20:53 | Progress Note ---
Assessment and Plan - Patient Problems (1) Deep vein blood clot of left lower extremity Current Visit: Yes Status: Acute Plan to address problem: see below. no new issues at this time. See notes. (2) Colon cancer metastasized to multiple sites Current Visit: Yes Status: Ruled-out Plan to address problem: see notes. eventually will get chemo/xrt. once stable. (3) Lung mass Current Visit: Yes Status: Acute Plan to address problem: see notes. (4) Pulmonary embolism Current Visit: Yes Status: Acute Plan to address problem: anticoags. see notes. no more anti coags. (5) DVT (deep venous thrombosis) Current Visit: Yes Status: Acute Qualifiers: Laterality: left Plan to address problem: anti coags. no more. (6) Anemia Current Visit: Yes Status: Acute Qualifiers: Iron deficiency anemia type: chronic blood loss Plan to address problem: see notes. will transfuse. will repeat labs. stable (7) Skin macule or macular rash Current Visit: Yes Status: Acute Plan to address problem: Most likely due to contrast use during procedure. Tx is steroid. Improved. Subjective Date of service: 09/26/17 Principal diagnosis: Sepsis Syndrome; Acute Hypoxemic Resp Failure; Acute Encephalopathy; ESRD Interval history: Patient seen/examined, record reviewed, case d/w his daughter at the bed side.No procedure was done today. I have d/w DR BOYD today, and he will see patient .He is confused today, with some lethargy. Patient seen/examined, resting in bed, labs reviewed, notes reviewed. DR BOYD not available yet, so i am seeing patient today.No new issues at this time Patient seen/resting in bed, still some what confused.Notes reviewed, Lung lesion now ? for mets.I have updated DR BOYD today Patient seen/examined, labs reviewed.H/H 6.6 , I have spoken to his nurse, and will draw from a non heparin line Stat. Patient seen, resting in bed, labs reviewed. I have d/w the nurse, and will order PRBC. Patient seen/examined, resting in bed, labs reviewed, case d/w patient and family at the bed side. He is s/p 2uPRBC transfusion.He is scheduled for IVC Filter placement, after which he can be transitioned to oral anticoagulation. eloquis. he should be able to transfer to chair, and back to bed once Heparin in therapeutic range. Patient seen/examined, labs reviewed, case d/w patient, and family.IVC filter not placed, so patient restarted on his Heparin.once placed, then patient can be ab;e to move around. Patient seen/examined, ,resting in bed, family at the bed side, IVC filter placement was not done. for some unknown reason..I have discussed with DR Mirza this morning that once Filter placed, he may be d/c home to start chemo. Patient seen/examined, case d/w patient / at the bed side.I will speak with IR about Filter placement, so patient can proceed with chemo. Patient seen/examined, resting in bed, record reviewed, No IVC filter yet. Patient seen/examined, case d/w him, and family. I had spoken to DR LOJA, and the conclusion was that patient will be switched to LMWH tx dose for probably indefinite, but if any surgical procedure is intended, or there is another thrombotic event, then he will get an IVC filter.I will d/w DR Mirza tomorrow, and if he can be d/c soon so he can get ready for chemo. Patient seen/examined, resting in bed, appears slightly lethargic, at the bed side, case d/w both, and with the primary team, Dr Lewis. Patient having GI bleed actively, heparin on hold now for 2days. patient also having projectile emesis bile like. I think that due to this new development, Patient can not be on anticoagulation,and he still remains pro thrombotic. This will make him a candidate for an alternative measure such as an IVC filter..Any major procedure such as GI scope can can even result in thrombotic event.He will need abdominal imaging also to r/o obstruction. Patient seen/examined, resting in bed, notes reviewed, patient asleep.I have reviewed notes , and glad that DR Longoria has concord with recommendation for IVC Filter.. patient seen/examined, notes reviewed. IVC filter placement completed, as per patient, who is more alert at this time. patient seen/examined , resting in bed, vss, afebrile, some what lethargic, family at the bed side.Skin of the extremity, with diffuse purpura., started post surgery.,almost like vasculitis.may need steroid trial., because this may infact be due to contrast ,which may also be delayed. Patient seen/examined, in the ICU center where he was transfered due to resp distress.I had suggested steroid, since this is looking more like contrast induced, , he now has acute renal failure in part due to same reason of contrast , and perhaps due to hypotension. I have discussed with DR Poe, and he will go ahead and order some steroid, and renal consult, and some insulin coverage. Patient seen/examined, resting in bed, on vent support, at the bed side, case d/w her. I have also reviewed others notes.He will need a new lab draw for tomorrow, and will follow you. Patent seen/examined, resting in bed, labs reviewed, case d/w his at the bed side. Patient seen/examined, agitated on the vent. at the bed side, case d/w her. I have spoken to the Pulm , and plan is to extubate today. Patient seen/examined, resting in bed, no longer on vent, and alert, no overt confusion.No new labs. Will order cbc for tomorrow Objective - Constitutional Vitals: Vital Signs - 12hr 09/26/17 09/26/17 09/26/17 08:50 09:00 09:10 Temperature Pulse Rate 64 64 82 Pulse Rate [ Anterior Bilateral Throughout] Respiratory 16 17 15 Rate Respiratory Rate [Anterior Bilateral Throughout] Blood Pressure 184/71 181/66 181/66 O2 Sat by Pulse 100 100 99 Oximetry 09/26/17 09/26/17 09/26/17 09:20 09:30 09:40 Temperature Pulse Rate 74 73 68 Pulse Rate [ Anterior Bilateral Throughout] Respiratory 14 21 20 Rate Respiratory Rate [Anterior Bilateral Throughout] Blood Pressure 181/66 181/66 181/66 O2 Sat by Pulse 100 93 98 Oximetry 09/26/17 09/26/17 09/26/17 09:50 10:00 10:10 Temperature Pulse Rate 62 69 Pulse Rate [ Anterior Bilateral Throughout] Respiratory 17 23 Rate Respiratory Rate [Anterior Bilateral Throughout] Blood Pressure 181/66 203/76 203/76 O2 Sat by Pulse 99 96 99 Oximetry 09/26/17 09/26/17 09/26/17 10:20 10:30 10:40 Temperature Pulse Rate 71 69 63 Pulse Rate [ Anterior Bilateral Throughout] Respiratory 19 18 16 Rate Respiratory Rate [Anterior Bilateral Throughout] Blood Pressure 203/76 203/76 203/76 O2 Sat by Pulse 97 99 100 Oximetry 09/26/17 09/26/17 09/26/17 10:50 11:00 11:10 Temperature Pulse Rate 68 67 74 Pulse Rate [ Anterior Bilateral Throughout] Respiratory 13 14 21 Rate Respiratory Rate [Anterior Bilateral Throughout] Blood Pressure 203/76 179/71 179/71 O2 Sat by Pulse 100 98 99 Oximetry 09/26/17 09/26/17 09/26/17 11:20 11:30 11:40 Temperature Pulse Rate 60 72 64 Pulse Rate [ Anterior Bilateral Throughout] Respiratory 17 20 20 Rate Respiratory Rate [Anterior Bilateral Throughout] Blood Pressure 179/71 179/71 179/71 O2 Sat by Pulse 100 99 99 Oximetry 09/26/17 09/26/17 09/26/17 11:50 12:00 12:10 Temperature 98.7 F Pulse Rate 58 L 71 78 Pulse Rate [ Anterior Bilateral Throughout] Respiratory 15 25 H 17 Rate Respiratory Rate [Anterior Bilateral Throughout] Blood Pressure 179/71 175/73 175/73 O2 Sat by Pulse 99 100 98 Oximetry 09/26/17 09/26/17 09/26/17 12:20 12:30 12:40 Temperature Pulse Rate 64 59 L 72 Pulse Rate [ Anterior Bilateral Throughout] Respiratory 17 16 22 Rate Respiratory Rate [Anterior Bilateral Throughout] Blood Pressure 175/73 175/73 175/73 O2 Sat by Pulse 100 100 99 Oximetry 09/26/17 09/26/17 09/26/17 12:50 13:00 13:10 Temperature Pulse Rate 59 L 56 L 75 Pulse Rate [ Anterior Bilateral Throughout] Respiratory 17 16 Rate Respiratory Rate [Anterior Bilateral Throughout] Blood Pressure 175/73 160/62 160/62 O2 Sat by Pulse 100 98 99 Oximetry 09/26/17 09/26/17 09/26/17 13:20 13:30 13:40 Temperature Pulse Rate 57 L 53 L 56 L Pulse Rate [ Anterior Bilateral Throughout] Respiratory 19 18 17 Rate Respiratory Rate [Anterior Bilateral Throughout] Blood Pressure 160/62 160/62 160/62 O2 Sat by Pulse 99 97 99 Oximetry 09/26/17 09/26/17 09/26/17 13:50 14:00 14:08 Temperature Pulse Rate 62 52 L Pulse Rate [ 54 L Anterior Bilateral Throughout] Respiratory 18 16 Rate Respiratory 15 Rate [Anterior Bilateral Throughout] Blood Pressure 160/62 169/69 O2 Sat by Pulse 99 98 Oximetry 09/26/17 09/26/17 09/26/17 14:10 14:20 14:23 Temperature Pulse Rate 74 71 Pulse Rate [ 71 Anterior Bilateral Throughout] Respiratory 23 16 Rate Respiratory 15 Rate [Anterior Bilateral Throughout] Blood Pressure 169/69 169/69 O2 Sat by Pulse 98 98 Oximetry 09/26/17 09/26/17 09/26/17 14:30 14:40 14:50 Temperature Pulse Rate 60 65 62 Pulse Rate [ Anterior Bilateral Throughout] Respiratory 16 19 16 Rate Respiratory Rate [Anterior Bilateral Throughout] Blood Pressure 169/69 169/69 169/69 O2 Sat by Pulse 97 94 96 Oximetry 09/26/17 09/26/17 09/26/17 15:00 15:05 15:10 Temperature Pulse Rate 62 60 70 Pulse Rate [ Anterior Bilateral Throughout] Respiratory 17 23 Rate Respiratory Rate [Anterior Bilateral Throughout] Blood Pressure 153/67 153/67 153/67 O2 Sat by Pulse 94 96 Oximetry 09/26/17 09/26/17 09/26/17 15:20 15:30 15:40 Temperature Pulse Rate 70 67 77 Pulse Rate [ Anterior Bilateral Throughout] Respiratory 19 20 19 Rate Respiratory Rate [Anterior Bilateral Throughout] Blood Pressure 153/67 153/67 153/67 O2 Sat by Pulse 96 95 96 Oximetry 09/26/17 09/26/17 09/26/17 15:50 16:00 16:10 Temperature 97.7 F Pulse Rate 64 62 69 Pulse Rate [ Anterior Bilateral Throughout] Respiratory 19 15 15 Rate Respiratory Rate [Anterior Bilateral Throughout] Blood Pressure 153/67 173/71 173/71 O2 Sat by Pulse 93 94 96 Oximetry 09/26/17 09/26/17 09/26/17 16:20 16:30 16:40 Temperature Pulse Rate 67 69 64 Pulse Rate [ Anterior Bilateral Throughout] Respiratory 14 19 18 Rate Respiratory Rate [Anterior Bilateral Throughout] Blood Pressure 173/71 173/71 173/71 O2 Sat by Pulse 96 97 97 Oximetry 09/26/17 09/26/17 09/26/17 16:50 17:00 17:10 Temperature Pulse Rate 60 75 70 Pulse Rate [ Anterior Bilateral Throughout] Respiratory 15 22 20 Rate Respiratory Rate [Anterior Bilateral Throughout] Blood Pressure 173/71 172/76 172/76 O2 Sat by Pulse 97 95 97 Oximetry 09/26/17 09/26/17 09/26/17 17:20 17:30 17:40 Temperature Pulse Rate 66 68 67 Pulse Rate [ Anterior Bilateral Throughout] Respiratory 20 20 19 Rate Respiratory Rate [Anterior Bilateral Throughout] Blood Pressure 172/76 172/76 172/76 O2 Sat by Pulse 95 97 97 Oximetry 09/26/17 09/26/17 09/26/17 17:50 18:00 18:10 Temperature Pulse Rate 73 64 71 Pulse Rate [ Anterior Bilateral Throughout] Respiratory 19 18 18 Rate Respiratory Rate [Anterior Bilateral Throughout] Blood Pressure 172/76 159/70 159/70 O2 Sat by Pulse 96 94 97 Oximetry 09/26/17 09/26/17 09/26/17 18:20 18:30 18:40 Temperature Pulse Rate 69 69 72 Pulse Rate [ Anterior Bilateral Throughout] Respiratory 21 20 20 Rate Respiratory Rate [Anterior Bilateral Throughout] Blood Pressure 159/70 159/70 159/70 O2 Sat by Pulse 96 97 97 Oximetry 09/26/17 09/26/17 20:00 20:40 Temperature 98.8 F Pulse Rate Pulse Rate [ 70 Anterior Bilateral Throughout] Respiratory Rate Respiratory 20 Rate [Anterior Bilateral Throughout] Blood Pressure O2 Sat by Pulse 100 Oximetry General appearance: Present: no acute distress - EENT Eyes: PERRL, EOM intact ENT: hearing intact, clear oral mucosa Ears: bilateral: normal - Neck Neck: supple, normal ROM - Respiratory Respiratory effort: normal Respiratory: bilateral: diminished - Cardiovascular Rhythm: regular Heart Sounds: Present: S1 & S2. Absent: gallop, rub Extremities: pulses intact, No edema, normal color, Full ROM - Gastrointestinal General gastrointestinal: Present: soft, non-tender, non-distended, normal bowel sounds Rectal Exam: deferred - Genitourinary Male genitourinary: deferred - Integumentary Integumentary: clear, warm, dry - Neurologic Neurologic: moves all extremities - Psychiatric Psychiatric: appropriate mood/affect, intact judgment & insight - Labs CBC & Chem 7: 09/24/17 06:00 09/26/17 11:45 Labs: Abnormal lab results 09/25/17 09/26/17 09/26/17 Range/Units 21:36 02:19 05:50 Potassium (3.6-5.0) mmol/L BUN (9-20) mg/dL Creatinine (0.8-1.5) mg/dL Glucose (75-100) mg/dL POC Glucose 259 H 199 H 218 H (70-105) 09/26/ Range/Units 11:45 Potassium 2.8 L* D (3.6-5.0) mmol/L BUN 118 H (9-20) mg/dL Creatinine 1.7 H (0.8-1.5) mg/dL Glucose 171 H (75-100) mg/dL POC Glucose (70-105)
[2017-09-27] MEDS: NOVOLOG SUB-Q SCH ×6 (02:00→22:05)
[2017-09-27 06:11] LABS: Hemoglobin 8.5 gm/dl (11.8-15.2); Mean Corpuscular HGB Conc 33 % (32-34); Mean Corpuscular Hemoglobin 27 pg (28-32); Mean Corpuscular Volume 81 fl (84-94); Platelet Count 226 K/mm3 (140-440); Red Cell Distribution Width 18.8 % (13.2-15.2); White Blood Count 12.1 K/mm3 (4.5-11.0)
[2017-09-27 08:27] LABS: Basophils % (Manual) 0 % (0.0-1.8); Blastocytes % (Manual) 0 %; Eosinophils % (Manual) 0 % (0.0-4.3)
[2017-09-27 08:28] LABS: Anisocytosis 1+; Polychromasia Rare
[2017-09-27 08:29] LABS: Diff Status Complete
[2017-09-27 08:55] LABS: Calcium 8.9 mg/dL (8.4-10.2); Chloride 107.1 mmol/L (98-107); Potassium 3.2 mmol/L (3.6-5.0)
[2017-09-27] MEDS: NORVASC PO SCH (09:27)
[2017-09-27] MEDS: PROTONIX FEEDTUBE SCH ×2 (09:27→22:06)
[2017-09-27] MEDS: LASIX IV SCH (09:28)
[2017-09-27] MEDS: DUONEB *Not for PRN Use IH SCH ×3 (09:33→19:52)
[2017-09-27] MEDS: PULMICORT IH SCH ×2 (09:33→19:52)
[2017-09-27] MEDS: LEVEMIR SUB-Q SCH (10:08)
--- NOTE | 2017-09-27 10:34 | Progress Note ---
Assessment and Plan - Patient Problems (1) Acute kidney injury Current Visit: Yes Status: Acute Plan to address problem: Acute kidney injury acute tubular necrosis secondary to hypotension/contrast exposure, now in recovery phase, Cr down to 1.5mg/dl cont lasix 40mg po qd. elevated BUN, likely due to pre-renal azotemia/IV steroid use, recent GI bleed. Supportive care for RACHEL/ATN Follow-up electrolytes and renal function. Discussed w/ ICU team (2) Hypertension Current Visit: Yes Status: Acute Qualifiers: Hypertension type: essential hypertension Qualified Code(s): I10 - Essential (primary) hypertension Plan to address problem: BP remains elevated on amlodipine 10mg po qd and lasix. added hydralazine 25mg po q8hr, to titrate up as indicated (3) Hypokalemia Current Visit: Yes Status: Acute Plan to address problem: supplement KDur (4) DVT (deep venous thrombosis) Current Visit: Yes Status: Acute Qualifiers: Laterality: left Plan to address problem: continue anticoagulation, hematology on case (5) Elevated liver enzymes Current Visit: Yes Status: Acute Plan to address problem: monitor LFTs (6) Pulmonary embolism Current Visit: Yes Status: Acute Plan to address problem: on anticoagulation (7) Type 2 diabetes mellitus without complications Current Visit: Yes Status: Acute Plan to address problem: glucose control as per primary attending (8) Colon cancer metastasized to multiple sites Current Visit: Yes Status: Ruled-out Plan to address problem: management as per oncology (9) Anemia Current Visit: Yes Status: Acute Qualifiers: Iron deficiency anemia type: chronic blood loss Plan to address problem: monitor hb Subjective Date of service: 09/27/17 Principal diagnosis: Sepsis Syndrome; Acute Hypoxemic Resp Failure; Acute Encephalopathy; ESRD Interval history: pt awake, alert, in no acute respiratory distress Objective - Vital Signs Vital signs: Vital Signs - 12hr 09/26/17 09/26/17 09/26/17 22:40 22:50 23:00 Temperature Pulse Rate 71 69 66 Pulse Rate [ Anterior Bilateral Throughout] Pulse Rate [ From Monitor] Respiratory 14 17 13 Rate Respiratory Rate [Anterior Bilateral Throughout] Blood Pressure 157/65 157/65 161/64 O2 Sat by Pulse 100 100 97 Oximetry 09/26/17 09/26/17 09/26/17 23:10 23:20 23:30 Temperature Pulse Rate 76 73 74 Pulse Rate [ Anterior Bilateral Throughout] Pulse Rate [ From Monitor] Respiratory 17 18 14 Rate Respiratory Rate [Anterior Bilateral Throughout] Blood Pressure 161/64 161/64 161/64 O2 Sat by Pulse 99 100 100 Oximetry 09/26/17 09/26/17 09/27/17 23:40 23:50 00:00 Temperature 97.8 F Pulse Rate 71 76 68 Pulse Rate [ Anterior Bilateral Throughout] Pulse Rate [ 68 From Monitor] Respiratory 18 18 17 Rate Respiratory Rate [Anterior Bilateral Throughout] Blood Pressure 161/64 161/64 150/69 O2 Sat by Pulse 100 98 96 Oximetry 09/27/17 09/27/17 09/27/17 00:10 00:20 00:30 Temperature Pulse Rate 66 64 63 Pulse Rate [ Anterior Bilateral Throughout] Pulse Rate [ From Monitor] Respiratory 17 18 17 Rate Respiratory Rate [Anterior Bilateral Throughout] Blood Pressure 150/69 150/69 150/69 O2 Sat by Pulse 100 100 100 Oximetry 09/27/17 09/27/17 09/27/17 00:40 00:50 01:00 Temperature Pulse Rate 66 73 64 Pulse Rate [ Anterior Bilateral Throughout] Pulse Rate [ From Monitor] Respiratory 18 15 17 Rate Respiratory Rate [Anterior Bilateral Throughout] Blood Pressure 150/69 150/69 150/66 O2 Sat by Pulse 100 100 98 Oximetry 09/27/17 09/27/17 09/27/17 01:10 01:20 01:30 Temperature Pulse Rate 62 61 61 Pulse Rate [ Anterior Bilateral Throughout] Pulse Rate [ From Monitor] Respiratory 19 19 19 Rate Respiratory Rate [Anterior Bilateral Throughout] Blood Pressure 150/66 150/66 150/66 O2 Sat by Pulse 100 100 100 Oximetry 09/27/17 09/27/17 09/27/17 01:40 01:50 02:00 Temperature Pulse Rate 74 63 62 Pulse Rate [ Anterior Bilateral Throughout] Pulse Rate [ From Monitor] Respiratory 16 14 16 Rate Respiratory Rate [Anterior Bilateral Throughout] Blood Pressure 150/66 150/66 152/66 O2 Sat by Pulse 100 100 99 Oximetry 09/27/17 09/27/17 09/27/17 03:00 03:32 04:00 Temperature 99 F Pulse Rate 75 63 Pulse Rate [ Anterior Bilateral Throughout] Pulse Rate [ 59 L From Monitor] Respiratory 17 16 Rate Respiratory Rate [Anterior Bilateral Throughout] Blood Pressure 159/76 160/67 O2 Sat by Pulse 100 97 Oximetry 09/27/17 09/27/17 09/27/17 05:00 06:00 08:00 Temperature 97.6 F Pulse Rate 59 L 65 Pulse Rate [ Anterior Bilateral Throughout] Pulse Rate [ From Monitor] Respiratory 18 18 Rate Respiratory Rate [Anterior Bilateral Throughout] Blood Pressure 159/66 171/80 O2 Sat by Pulse 98 97 Oximetry 09/27/17 09/27/17 09/27/17 09:27 09:32 09:34 Temperature Pulse Rate 65 Pulse Rate [ 65 Anterior Bilateral Throughout] Pulse Rate [ From Monitor] Respiratory Rate Respiratory 16 Rate [Anterior Bilateral Throughout] Blood Pressure 177/78 O2 Sat by Pulse 100 Oximetry 09/27/17 09:54 Temperature Pulse Rate Pulse Rate [ 70 Anterior Bilateral Throughout] Pulse Rate [ From Monitor] Respiratory Rate Respiratory 18 Rate [Anterior Bilateral Throughout] Blood Pressure O2 Sat by Pulse Oximetry - General Appearance General appearance: appears stated age, chronically ill EENT: ATNC, PERRL, mucous membranes moist Neck: no JVD Respiratory: Present: Clear to Ascultation Cardiology: regular, S1S2 Gastrointestinal: normoactive bowel sounds Integumentary: no rash, other (no edema ) Neurologic: no focal deficit, alert and oriented x3, strength 5/5, CN 3-12 intact Psychiatric: mood/affect appropriate, cooperative - Lab 09/27/17 06:00 09/27/17 07:00 Most recent lab results Calcium 8.9 mg/dL (8.4-10.2) 09/27/17 07:00 Phosphorus 5.70 mg/dL (2.5-4.5) H 09/25/17 04:00 Magnesium 2.20 mg/dL (1.7-2.3) 09/25/17 04:00 Urine Sodium 10 mmol/L 09/23/17 09:26
--- NOTE | 2017-09-27 12:48 | Progress Note ---
Assessment and Plan Acute Hypoxemic Respiratory Failure Acute VTE Sepsis Syndrome H/O Colon CA (? recurrent) Acute GI Bleed RACHEL Contrast nephropathy Anemia - continue seroquel taper - continue to avoid benzodiazepines - continue to wean oxygen for Sats > 92% - s/p IVC filter - continue aspiration precautions - continue bronchodilators and pulmonary hygeine per RT - continue empiric AB's - continue GI prophylaxis - continue steroid taper - advance oral feeds per ST - watch in ICU overnight - prn BIPAP - continue other care per attending / other consultants ...care plan discussed with at bedside ....re-evaluate in am & prn ...improved ...35 Subjective Date of service: 09/27/17 Principal diagnosis: Sepsis Syndrome; Acute Hypoxemic Resp Failure; Acute Encephalopathy; ESRD Interval history: Patient is seen today for: Sepsis Syndrome; Acute Hypoxemic Resp Failure; Acute Encephalopathy; ESRD Seen and examined at bedside; 24hour events reviewed; nursing and respiratory care staff consulted; no adverse overnight events reported to me; resting in bed ; denies hemoptysis; no chest pains; No N/V/F/C Objective Vital Signs - 12hr 09/27/17 09/27/17 09/27/17 00:50 01:00 01:10 Temperature Pulse Rate 73 64 62 Pulse Rate [ Anterior Bilateral Throughout] Pulse Rate [ From Monitor] Respiratory 15 17 19 Rate Respiratory Rate [Anterior Bilateral Throughout] Blood Pressure 150/69 150/66 150/66 O2 Sat by Pulse 100 98 100 Oximetry 09/27/17 09/27/17 09/27/17 01:20 01:30 01:40 Temperature Pulse Rate 61 61 74 Pulse Rate [ Anterior Bilateral Throughout] Pulse Rate [ From Monitor] Respiratory 19 19 16 Rate Respiratory Rate [Anterior Bilateral Throughout] Blood Pressure 150/66 150/66 150/66 O2 Sat by Pulse 100 100 100 Oximetry 09/27/17 09/27/17 09/27/17 01:50 02:00 03:00 Temperature Pulse Rate 63 62 75 Pulse Rate [ Anterior Bilateral Throughout] Pulse Rate [ From Monitor] Respiratory 14 16 17 Rate Respiratory Rate [Anterior Bilateral Throughout] Blood Pressure 150/66 152/66 159/76 O2 Sat by Pulse 100 99 100 Oximetry 09/27/17 09/27/17 09/27/17 03:32 04:00 05:00 Temperature 99 F Pulse Rate 63 59 L Pulse Rate [ Anterior Bilateral Throughout] Pulse Rate [ 59 L From Monitor] Respiratory 16 18 Rate Respiratory Rate [Anterior Bilateral Throughout] Blood Pressure 160/67 159/66 O2 Sat by Pulse 97 98 Oximetry 09/27/17 09/27/17 09/27/17 06:00 07:00 08:00 Temperature 97.6 F Pulse Rate 65 60 Pulse Rate [ Anterior Bilateral Throughout] Pulse Rate [ From Monitor] Respiratory 18 14 Rate Respiratory Rate [Anterior Bilateral Throughout] Blood Pressure 171/80 187/72 O2 Sat by Pulse 97 100 Oximetry 09/27/17 09/27/17 09/27/17 08:01 09:01 09:27 Temperature Pulse Rate 57 L 63 65 Pulse Rate [ Anterior Bilateral Throughout] Pulse Rate [ From Monitor] Respiratory 16 19 Rate Respiratory Rate [Anterior Bilateral Throughout] Blood Pressure 160/69 177/78 177/78 O2 Sat by Pulse 98 99 Oximetry 09/27/17 09/27/17 09/27/17 09:32 09:34 09:54 Temperature Pulse Rate Pulse Rate [ 65 70 Anterior Bilateral Throughout] Pulse Rate [ From Monitor] Respiratory Rate Respiratory 16 18 Rate [Anterior Bilateral Throughout] Blood Pressure O2 Sat by Pulse 100 Oximetry 09/27/17 09/27/17 09/27/17 10:00 11:01 12:00 Temperature Pulse Rate 75 70 72 Pulse Rate [ Anterior Bilateral Throughout] Pulse Rate [ From Monitor] Respiratory 17 11 L 23 Rate Respiratory Rate [Anterior Bilateral Throughout] Blood Pressure 180/75 178/76 184/78 O2 Sat by Pulse 98 96 97 Oximetry Constitutional: no acute distress, other (somnolent) Eyes: non-icteric ENT: oropharynx moist Neck: supple, lymphadenopathy, no JVD, other (no thyromegaly) Effort: mildly labored Ascultation: Right: rales (base), Bilateral: diminished breath sounds Percussion: Bilateral: not dull Cardiovascular: regular rate and rhythm, other (No rubs or murmurs) Gastrointestinal: normoactive bowel sounds, soft, non-tender, non-distended, other (No HSM) Integumentary: rash (petecheal; improving) Extremities: no cyanosis, pulses normal, edema, other (warm) Neurologic: non-focal exam (grossly), unable to assess Psychiatric: mood appropriate, affect normal CBC and BMP: 09/27/17 06:00 09/27/17 07:00 ABG, PT/INR, D-dimer: ABG POC ABG pH 7.330 (7.35-7.45) L 09/24/17 14:04 POC ABG pCO2 43.2 (35-45) 09/24/17 14:04 POC ABG pO2 93 (80-105) 09/24/17 14:04 POC ABG HCO3 22.8 09/24/17 14:04 POC ABG Total CO2 24 09/24/17 14:04 POC ABG O2 Sat 97 09/24/17 14:04 PT/INR, D-dimer PT 21.8 Sec. (12.2-14.9) H 08/28/17 20:01 INR 1.80 (0.87-1.13) H 08/28/17 20:01 Abnormal lab findings: Abnormal Labs 08/27/17 08/27/17 08/27/17 03:02 03:02 03:02 WBC 14.6 H RBC 3.46 L Hgb 8.4 L Hct 26.5 L MCV 77 L MCH 24 L MCHC RDW 25.8 H Lymph % (Auto) Gaines % (Auto) Lymph # Gaines # Baso # Seg Neutrophils % Seg Neuts % (Manual) Lymphocytes % (Manual) Monocytes % (Manual) 8.0 H Nucleated RBC % 3.0 H Seg Neutrophils # Seg Neutrophils # Man Lymphocytes # (Manual) Monocytes # (Manual) 1.2 H PT INR APTT Heparin Anti-Xa Level POC ABG pH POC ABG pCO2 POC ABG pO2 Sodium 136 L Potassium Chloride 93.3 L Carbon Dioxide BUN 21 H Creatinine Glucose 104 H POC Glucose Calcium Phosphorus Magnesium AST ALT 62 H Alkaline Phosphatase 133 H C-Reactive Protein Total Protein 8.5 H Albumin 3.2 L Triglycerides Urine pH Vancomycin Trough Salicylates < 0.3 L Tot Complement (CH50) Crossmatch 08/27/17 08/27/17 08/27/17 05:00 07:43 11:20 WBC RBC Hgb Hct MCV MCH MCHC RDW Lymph % (Auto) Gaines % (Auto) Lymph # Gaines # Baso # Seg Neutrophils % Seg Neuts % (Manual) Lymphocytes % (Manual) Monocytes % (Manual) Nucleated RBC % Seg Neutrophils # Seg Neutrophils # Man Lymphocytes # (Manual) Monocytes # (Manual) PT INR APTT Heparin Anti-Xa Level POC ABG pH POC ABG pCO2 POC ABG pO2 Sodium Potassium Chloride Carbon Dioxide BUN Creatinine Glucose POC Glucose 116 H 110 H Calcium Phosphorus Magnesium AST ALT Alkaline Phosphatase C-Reactive Protein Total Protein Albumin Triglycerides Urine pH 9.0 H Vancomycin Trough Salicylates Tot Complement (CH50) Crossmatch 08/27/17 08/27/17 08/28/17 16:36 22:00 04:41 WBC RBC Hgb Hct MCV MCH MCHC RDW Lymph % (Auto) Gaines % (Auto) Lymph # Gaines # Baso # Seg Neutrophils % Seg Neuts % (Manual) Lymphocytes % (Manual) Monocytes % (Manual) Nucleated RBC % Seg Neutrophils # Seg Neutrophils # Man Lymphocytes # (Manual) Monocytes # (Manual) PT INR APTT Heparin Anti-Xa Level POC ABG pH POC ABG pCO2 POC ABG pO2 Sodium Potassium Chloride Carbon Dioxide BUN Creatinine Glucose 139 H POC Glucose 108 H 130 H Calcium 8.2 L Phosphorus Magnesium AST ALT Alkaline Phosphatase C-Reactive Protein Total Protein Albumin Triglycerides Urine pH Vancomycin Trough Salicylates Tot Complement (CH50) Crossmatch 08/28/17 08/28/17 08/28/17 04:41 06:46 07:16 WBC RBC Hgb Hct MCV MCH MCHC RDW Lymph % (Auto) Gaines % (Auto) Lymph # Gaines # Baso # Seg Neutrophils % Seg Neuts % (Manual) Lymphocytes % (Manual) Monocytes % (Manual) Nucleated RBC % Seg Neutrophils # Seg Neutrophils # Man Lymphocytes # (Manual) Monocytes # (Manual) PT 25.2 H INR 2.17 H APTT Heparin Anti-Xa Level POC ABG pH POC ABG pCO2 POC ABG pO2 Sodium Potassium Chloride Carbon Dioxide BUN Creatinine Glucose POC Glucose 176 H 175 H Calcium Phosphorus Magnesium AST ALT Alkaline Phosphatase C-Reactive Protein Total Protein Albumin Triglycerides Urine pH Vancomycin Trough Salicylates Tot Complement (CH50) Crossmatch 08/28/17 08/28/17 08/28/17 11:41 16:47 20:01 WBC RBC Hgb Hct MCV MCH MCHC RDW Lymph % (Auto) Gaines % (Auto) Lymph # Gaines # Baso # Seg Neutrophils % Seg Neuts % (Manual) Lymphocytes % (Manual) Monocytes % (Manual) Nucleated RBC % Seg Neutrophils # Seg Neutrophils # Man Lymphocytes # (Manual) Monocytes # (Manual) PT 21.8 H INR 1.80 H APTT 56.5 H Heparin Anti-Xa Level POC ABG pH POC ABG pCO2 POC ABG pO2 Sodium Potassium Chloride Carbon Dioxide BUN Creatinine Glucose POC Glucose 176 H 206 H Calcium Phosphorus Magnesium AST ALT Alkaline Phosphatase C-Reactive Protein Total Protein Albumin Triglycerides Urine pH Vancomycin Trough Salicylates Tot Complement (CH50) Crossmatch 08/28/17 08/29/17 08/29/17 20:43 00:07 02:30 WBC RBC Hgb 6.4 L Hct 20.6 L MCV MCH MCHC RDW Lymph % (Auto) Gaines % (Auto) Lymph # Gaines # Baso # Seg Neutrophils % Seg Neuts % (Manual) Lymphocytes % (Manual) Monocytes % (Manual) Nucleated RBC % Seg Neutrophils # Seg Neutrophils # Man Lymphocytes # (Manual) Monocytes # (Manual) PT INR APTT Heparin Anti-Xa Level POC ABG pH POC ABG pCO2 POC ABG pO2 Sodium Potassium Chloride Carbon Dioxide BUN Creatinine Glucose POC Glucose 259 H Calcium Phosphorus Magnesium AST ALT Alkaline Phosphatase C-Reactive Protein Total Protein Albumin Triglycerides Urine pH Vancomycin Trough Salicylates Tot Complement (CH50) Crossmatch See Detail 08/29/17 08/29/17 08/29/17 02:56 07:25 11:40 WBC RBC Hgb Hct MCV MCH MCHC RDW Lymph % (Auto) Gaines % (Auto) Lymph # Gaines # Baso # Seg Neutrophils % Seg Neuts % (Manual) Lymphocytes % (Manual) Monocytes % (Manual) Nucleated RBC % Seg Neutrophils # Seg Neutrophils # Man Lymphocytes # (Manual) Monocytes # (Manual) PT INR APTT Heparin Anti-Xa Level POC ABG pH POC ABG pCO2 POC ABG pO2 Sodium Potassium 3.5 L Chloride Carbon Dioxide 21 L BUN 21 H Creatinine Glucose 214 H POC Glucose 220 H 174 H Calcium 8.0 L Phosphorus Magnesium 1.60 L AST ALT Alkaline Phosphatase C-Reactive Protein Total Protein Albumin Triglycerides Urine pH Vancomycin Trough Salicylates Tot Complement (CH50) Crossmatch 08/29/17 08/29/17 08/29/17 16:10 16:40 17:48 WBC RBC Hgb 8.5 L Hct 26.7 L D MCV MCH MCHC RDW Lymph % (Auto) Gaines % (Auto) Lymph # Gaines # Baso # Seg Neutrophils % Seg Neuts % (Manual) Lymphocytes % (Manual) Monocytes % (Manual) Nucleated RBC % Seg Neutrophils # Seg Neutrophils # Man Lymphocytes # (Manual) Monocytes # (Manual) PT INR APTT Heparin Anti-Xa Level POC ABG pH POC ABG pCO2 POC ABG pO2 Sodium Potassium Chloride Carbon Dioxide BUN Creatinine Glucose POC Glucose 178 H Calcium Phosphorus Magnesium AST ALT Alkaline Phosphatase C-Reactive Protein Total Protein 3.9 L D Albumin 1.5 L Triglycerides Urine pH Vancomycin Trough Salicylates Tot Complement (CH50) Crossmatch 08/29/17 08/29/17 08/30/17 18:32 22:19 04:25 WBC RBC Hgb 7.9 L Hct 25.2 L MCV MCH MCHC RDW Lymph % (Auto) Gaines % (Auto) Lymph # Gaines # Baso # Seg Neutrophils % Seg Neuts % (Manual) Lymphocytes % (Manual) Monocytes % (Manual) Nucleated RBC % Seg Neutrophils # Seg Neutrophils # Man Lymphocytes # (Manual) Monocytes # (Manual) PT INR APTT Heparin Anti-Xa Level POC ABG pH POC ABG pCO2 POC ABG pO2 Sodium Potassium Chloride Carbon Dioxide BUN Creatinine Glucose POC Glucose 247 H Calcium Phosphorus Magnesium AST ALT Alkaline Phosphatase C-Reactive Protein Total Protein Albumin Triglycerides Urine pH Vancomycin Trough 25.5 H Salicylates Tot Complement (CH50) Crossmatch 08/30/17 08/30/17 08/30/17 04:25 07:53 11:53 WBC RBC Hgb Hct MCV MCH MCHC RDW Lymph % (Auto) Gaines % (Auto) Lymph # Gaines # Baso # Seg Neutrophils % Seg Neuts % (Manual) Lymphocytes % (Manual) Monocytes % (Manual) Nucleated RBC % Seg Neutrophils # Seg Neutrophils # Man Lymphocytes # (Manual) Monocytes # (Manual) PT INR APTT Heparin Anti-Xa Level POC ABG pH POC ABG pCO2 POC ABG pO2 Sodium 136 L Potassium 3.2 L Chloride Carbon Dioxide 18 L BUN 29 H Creatinine Glucose 203 H POC Glucose 193 H 246 H Calcium Phosphorus Magnesium AST ALT Alkaline Phosphatase C-Reactive Protein Total Protein Albumin Triglycerides Urine pH Vancomycin Trough Salicylates Tot Complement (CH50) Crossmatch 08/30/17 08/30/17 08/31/17 16:47 21:36 04:28 WBC RBC Hgb Hct MCV MCH MCHC RDW Lymph % (Auto) Gaines % (Auto) Lymph # Gaines # Baso # Seg Neutrophils % Seg Neuts % (Manual) Lymphocytes % (Manual) Monocytes % (Manual) Nucleated RBC % Seg Neutrophils # Seg Neutrophils # Man Lymphocytes # (Manual) Monocytes # (Manual) PT INR APTT Heparin Anti-Xa Level POC ABG pH POC ABG pCO2 POC ABG pO2 Sodium Potassium 3.5 L Chloride 111.0 H Carbon Dioxide 19 L BUN 25 H Creatinine Glucose 53 L POC Glucose 159 H 110 H Calcium Phosphorus Magnesium AST ALT Alkaline Phosphatase C-Reactive Protein Total Protein 6.0 L D Albumin 2.2 L Triglycerides Urine pH Vancomycin Trough Salicylates Tot Complement (CH50) Crossmatch 08/31/17 08/31/17 08/31/17 04:28 07:31 07:34 WBC RBC 2.99 L Hgb 7.8 L Hct 23.8 L MCV 80 L MCH 26 L MCHC RDW 22.7 H Lymph % (Auto) Gaines % (Auto) 13.0 H Lymph # Gaines # 1.3 H Baso # Seg Neutrophils % Seg Neuts % (Manual) Lymphocytes % (Manual) Monocytes % (Manual) Nucleated RBC % Seg Neutrophils # Seg Neutrophils # Man Lymphocytes # (Manual) Monocytes # (Manual) PT INR APTT Heparin Anti-Xa Level POC ABG pH POC ABG pCO2 POC ABG pO2 Sodium Potassium Chloride Carbon Dioxide BUN Creatinine Glucose POC Glucose < 40 L 42 L Calcium Phosphorus Magnesium AST ALT Alkaline Phosphatase C-Reactive Protein Total Protein Albumin Triglycerides Urine pH Vancomycin Trough Salicylates Tot Complement (CH50) Crossmatch 08/31/17 08/31/17 08/31/17 09:10 16:45 22:56 WBC RBC Hgb Hct MCV MCH MCHC RDW Lymph % (Auto) Gaines % (Auto) Lymph # Gaines # Baso # Seg Neutrophils % Seg Neuts % (Manual) Lymphocytes % (Manual) Monocytes % (Manual) Nucleated RBC % Seg Neutrophils # Seg Neutrophils # Man Lymphocytes # (Manual) Monocytes # (Manual) PT INR APTT Heparin Anti-Xa Level POC ABG pH POC ABG pCO2 POC ABG pO2 Sodium Potassium Chloride Carbon Dioxide BUN Creatinine Glucose POC Glucose 64 L 173 H 167 H Calcium Phosphorus Magnesium AST ALT Alkaline Phosphatase C-Reactive Protein Total Protein Albumin Triglycerides Urine pH Vancomycin Trough Salicylates Tot Complement (CH50) Crossmatch 09/01/17 09/01/17 09/01/17 04:05 04:05 07:26 WBC RBC Hgb 8.4 L Hct 26.3 L MCV MCH MCHC RDW Lymph % (Auto) Gaines % (Auto) Lymph # Gaines # Baso # Seg Neutrophils % Seg Neuts % (Manual) Lymphocytes % (Manual) Monocytes % (Manual) Nucleated RBC % Seg Neutrophils # Seg Neutrophils # Man Lymphocytes # (Manual) Monocytes # (Manual) PT INR APTT Heparin Anti-Xa Level POC ABG pH POC ABG pCO2 POC ABG pO2 Sodium Potassium Chloride 109.0 H Carbon Dioxide 17 L BUN 23 H Creatinine Glucose 187 H POC Glucose 256 H Calcium Phosphorus Magnesium AST ALT Alkaline Phosphatase C-Reactive Protein Total Protein Albumin Triglycerides 210 H Urine pH Vancomycin Trough Salicylates Tot Complement (CH50) Crossmatch 09/01/17 09/01/17 09/01/17 10:43 10:43 11:53 WBC RBC Hgb Hct MCV MCH MCHC RDW Lymph % (Auto) Gaines % (Auto) Lymph # Gaines # Baso # Seg Neutrophils % Seg Neuts % (Manual) Lymphocytes % (Manual) Monocytes % (Manual) Nucleated RBC % Seg Neutrophils # Seg Neutrophils # Man Lymphocytes # (Manual) Monocytes # (Manual) PT INR APTT Heparin Anti-Xa Level POC ABG pH POC ABG pCO2 POC ABG pO2 Sodium Potassium Chloride Carbon Dioxide BUN Creatinine Glucose POC Glucose 251 H Calcium Phosphorus Magnesium AST ALT Alkaline Phosphatase C-Reactive Protein 28.80 H Total Protein Albumin Triglycerides Urine pH Vancomycin Trough 27.7 H Salicylates Tot Complement (CH50) Crossmatch 09/01/17 09/01/17 09/01/17 17:05 20:46 Unknown WBC RBC Hgb Hct MCV MCH MCHC RDW Lymph % (Auto) Gaines % (Auto) Lymph # Gaines # Baso # Seg Neutrophils % Seg Neuts % (Manual) Lymphocytes % (Manual) Monocytes % (Manual) Nucleated RBC % Seg Neutrophils # Seg Neutrophils # Man Lymphocytes # (Manual) Monocytes # (Manual) PT INR APTT Heparin Anti-Xa Level 0.11 L POC ABG pH 7.485 H POC ABG pCO2 25.0 L POC ABG pO2 Sodium Potassium Chloride Carbon Dioxide BUN Creatinine Glucose POC Glucose 180 H Calcium Phosphorus Magnesium AST ALT Alkaline Phosphatase C-Reactive Protein Total Protein Albumin Triglycerides Urine pH Vancomycin Trough Salicylates Tot Complement (CH50) Crossmatch 09/02/17 09/02/17 09/02/17 01:02 05:15 05:15 WBC RBC Hgb Hct MCV MCH MCHC RDW Lymph % (Auto) Gaines % (Auto) Lymph # Gaines # Baso # Seg Neutrophils % Seg Neuts % (Manual) Lymphocytes % (Manual) Monocytes % (Manual) Nucleated RBC % Seg Neutrophils # Seg Neutrophils # Man Lymphocytes # (Manual) Monocytes # (Manual) PT INR APTT Heparin Anti-Xa Level 0.13 L POC ABG pH POC ABG pCO2 POC ABG pO2 Sodium Potassium Chloride 110.3 H Carbon Dioxide 19 L BUN 23 H Creatinine Glucose 172 H POC Glucose 222 H Calcium Phosphorus Magnesium AST ALT Alkaline Phosphatase C-Reactive Protein Total Protein Albumin Triglycerides Urine pH Vancomycin Trough Salicylates Tot Complement (CH50) Crossmatch 09/02/17 09/02/17 09/02/17 07:46 10:03 11:41 WBC RBC Hgb Hct MCV MCH MCHC RDW Lymph % (Auto) Gaines % (Auto) Lymph # Gaines # Baso # Seg Neutrophils % Seg Neuts % (Manual) Lymphocytes % (Manual) Monocytes % (Manual) Nucleated RBC % Seg Neutrophils # Seg Neutrophils # Man Lymphocytes # (Manual) Monocytes # (Manual) PT INR APTT Heparin Anti-Xa Level < 0.10 L POC ABG pH POC ABG pCO2 POC ABG pO2 Sodium Potassium Chloride Carbon Dioxide BUN Creatinine Glucose POC Glucose 217 H 211 H Calcium Phosphorus Magnesium AST ALT Alkaline Phosphatase C-Reactive Protein Total Protein Albumin Triglycerides Urine pH Vancomycin Trough Salicylates Tot Complement (CH50) Crossmatch 09/02/17 09/02/17 09/02/17 16:43 19:24 22:06 WBC RBC Hgb Hct MCV MCH MCHC RDW Lymph % (Auto) Gaines % (Auto) Lymph # Gaines # Baso # Seg Neutrophils % Seg Neuts % (Manual) Lymphocytes % (Manual) Monocytes % (Manual) Nucleated RBC % Seg Neutrophils # Seg Neutrophils # Man Lymphocytes # (Manual) Monocytes # (Manual) PT INR APTT Heparin Anti-Xa Level 0.19 L POC ABG pH POC ABG pCO2 POC ABG pO2 Sodium Potassium Chloride Carbon Dioxide BUN Creatinine Glucose POC Glucose 247 H 196 H Calcium Phosphorus Magnesium AST ALT Alkaline Phosphatase C-Reactive Protein Total Protein Albumin Triglycerides Urine pH Vancomycin Trough Salicylates Tot Complement (CH50) Crossmatch 09/03/17 09/03/17 09/03/17 04:50 04:50 08:02 WBC RBC 2.80 L Hgb 7.1 L Hct 22.5 L MCV 80 L MCH 25 L MCHC 31 L RDW 22.7 H Lymph % (Auto) Gaines % (Auto) 7.6 H Lymph # Gaines # Baso # Seg Neutrophils % Seg Neuts % (Manual) Lymphocytes % (Manual) Monocytes % (Manual) Nucleated RBC % Seg Neutrophils # Seg Neutrophils # Man Lymphocytes # (Manual) Monocytes # (Manual) PT INR APTT Heparin Anti-Xa Level POC ABG pH POC ABG pCO2 POC ABG pO2 Sodium Potassium Chloride 109.7 H Carbon Dioxide 20 L BUN 27 H Creatinine Glucose 193 H POC Glucose 226 H Calcium Phosphorus Magnesium AST ALT Alkaline Phosphatase 140 H C-Reactive Protein Total Protein Albumin 2.4 L Triglycerides Urine pH Vancomycin Trough Salicylates Tot Complement (CH50) Crossmatch 09/03/17 09/03/17 09/03/17 11:54 16:26 22:03 WBC RBC Hgb Hct MCV MCH MCHC RDW Lymph % (Auto) Gaines % (Auto) Lymph # Gaines # Baso # Seg Neutrophils % Seg Neuts % (Manual) Lymphocytes % (Manual) Monocytes % (Manual) Nucleated RBC % Seg Neutrophils # Seg Neutrophils # Man Lymphocytes # (Manual) Monocytes # (Manual) PT INR APTT Heparin Anti-Xa Level POC ABG pH POC ABG pCO2 POC ABG pO2 Sodium Potassium Chloride Carbon Dioxide BUN Creatinine Glucose POC Glucose 221 H 123 H 206 H Calcium Phosphorus Magnesium AST ALT Alkaline Phosphatase C-Reactive Protein Total Protein Albumin Triglycerides Urine pH Vancomycin Trough Salicylates Tot Complement (CH50) Crossmatch 09/04/17 09/04/17 09/04/17 07:56 11:35 16:30 WBC RBC Hgb Hct MCV MCH MCHC RDW Lymph % (Auto) Gaines % (Auto) Lymph # Gaines # Baso # Seg Neutrophils % Seg Neuts % (Manual) Lymphocytes % (Manual) Monocytes % (Manual) Nucleated RBC % Seg Neutrophils # Seg Neutrophils # Man Lymphocytes # (Manual) Monocytes # (Manual) PT INR APTT Heparin Anti-Xa Level POC ABG pH POC ABG pCO2 POC ABG pO2 Sodium Potassium Chloride Carbon Dioxide BUN Creatinine Glucose POC Glucose 205 H 263 H 158 H Calcium Phosphorus Magnesium AST ALT Alkaline Phosphatase C-Reactive Protein Total Protein Albumin Triglycerides Urine pH Vancomycin Trough Salicylates Tot Complement (CH50) Crossmatch 09/04/17 09/05/17 09/05/17 22:33 08:00 08:00 WBC 12.5 H RBC 2.81 L Hgb 6.9 L Hct 22.6 L MCV 81 L MCH 24 L MCHC 30 L RDW 22.4 H Lymph % (Auto) Gaines % (Auto) 8.0 H Lymph # Gaines # 1.0 H Baso # Seg Neutrophils % Seg Neuts % (Manual) Lymphocytes % (Manual) Monocytes % (Manual) Nucleated RBC % Seg Neutrophils # Seg Neutrophils # Man Lymphocytes # (Manual) Monocytes # (Manual) PT INR APTT Heparin Anti-Xa Level POC ABG pH POC ABG pCO2 POC ABG pO2 Sodium Potassium Chloride 109.0 H Carbon Dioxide 20 L BUN 27 H Creatinine Glucose 219 H POC Glucose 217 H Calcium Phosphorus Magnesium AST ALT Alkaline Phosphatase 169 H C-Reactive Protein Total Protein Albumin 2.4 L Triglycerides Urine pH Vancomycin Trough Salicylates Tot Complement (CH50) Crossmatch 09/05/17 09/05/17 09/05/17 11:58 15:52 22:35 WBC RBC Hgb Hct MCV MCH MCHC RDW Lymph % (Auto) Gaines % (Auto) Lymph # Gaines # Baso # Seg Neutrophils % Seg Neuts % (Manual) Lymphocytes % (Manual) Monocytes % (Manual) Nucleated RBC % Seg Neutrophils # Seg Neutrophils # Man Lymphocytes # (Manual) Monocytes # (Manual) PT INR APTT Heparin Anti-Xa Level POC ABG pH POC ABG pCO2 POC ABG pO2 Sodium Potassium Chloride Carbon Dioxide BUN Creatinine Glucose POC Glucose 251 H 200 H 259 H Calcium Phosphorus Magnesium AST ALT Alkaline Phosphatase C-Reactive Protein Total Protein Albumin Triglycerides Urine pH Vancomycin Trough Salicylates Tot Complement (CH50) Crossmatch 09/05/17 09/06/17 09/06/17 23:55 08:19 09:32 WBC 12.0 H RBC 2.75 L 2.93 L Hgb 7.0 L 7.1 L Hct 22.2 L 23.5 L MCV 81 L 80 L MCH 25 L 24 L MCHC 31 L 30 L RDW 23.1 H 22.4 H Lymph % (Auto) Gaines % (Auto) Lymph # Gaines # Baso # Seg Neutrophils % Seg Neuts % (Manual) Lymphocytes % (Manual) Monocytes % (Manual) Nucleated RBC % Seg Neutrophils # 8.1 H Seg Neutrophils # Man Lymphocytes # (Manual) Monocytes # (Manual) PT INR APTT Heparin Anti-Xa Level POC ABG pH POC ABG pCO2 POC ABG pO2 Sodium Potassium Chloride Carbon Dioxide BUN Creatinine Glucose POC Glucose 210 H Calcium Phosphorus Magnesium AST ALT Alkaline Phosphatase C-Reactive Protein Total Protein Albumin Triglycerides Urine pH Vancomycin Trough Salicylates Tot Complement (CH50) Crossmatch 09/06/17 09/06/17 09/06/17 12:08 16:15 21:17 WBC RBC 2.83 L Hgb 7.2 L Hct 22.9 L MCV 81 L MCH 25 L MCHC 31 L RDW 22.4 H Lymph % (Auto) Gaines % (Auto) 8.1 H Lymph # Gaines # Baso # Seg Neutrophils % Seg Neuts % (Manual) Lymphocytes % (Manual) Monocytes % (Manual) Nucleated RBC % Seg Neutrophils # Seg Neutrophils # Man Lymphocytes # (Manual) Monocytes # (Manual) PT INR APTT Heparin Anti-Xa Level POC ABG pH POC ABG pCO2 POC ABG pO2 Sodium Potassium Chloride Carbon Dioxide BUN Creatinine Glucose POC Glucose 179 H 157 H Calcium Phosphorus Magnesium AST ALT Alkaline Phosphatase C-Reactive Protein Total Protein Albumin Triglycerides Urine pH Vancomycin Trough Salicylates Tot Complement (CH50) Crossmatch 09/06/17 09/07/17 09/07/17 23:17 07:40 07:40 WBC RBC 2.81 L Hgb 7.2 L Hct 22.4 L MCV 80 L MCH 26 L MCHC RDW 23.0 H Lymph % (Auto) Gaines % (Auto) Lymph # Gaines # Baso # Seg Neutrophils % 73.7 H Seg Neuts % (Manual) Lymphocytes % (Manual) Monocytes % (Manual) Nucleated RBC % Seg Neutrophils # Seg Neutrophils # Man Lymphocytes # (Manual) Monocytes # (Manual) PT INR APTT Heparin Anti-Xa Level POC ABG pH POC ABG pCO2 POC ABG pO2 Sodium Potassium Chloride 108.0 H Carbon Dioxide 21 L BUN Creatinine Glucose 186 H POC Glucose 195 H Calcium Phosphorus Magnesium AST ALT Alkaline Phosphatase 143 H C-Reactive Protein Total Protein Albumin 2.5 L Triglycerides Urine pH Vancomycin Trough Salicylates Tot Complement (CH50) Crossmatch 09/07/17 09/07/17 09/07/17 07:40 08:40 11:35 WBC RBC Hgb Hct MCV MCH MCHC RDW Lymph % (Auto) Gaines % (Auto) Lymph # Gaines # Baso # Seg Neutrophils % Seg Neuts % (Manual) Lymphocytes % (Manual) Monocytes % (Manual) Nucleated RBC % Seg Neutrophils # Seg Neutrophils # Man Lymphocytes # (Manual) Monocytes # (Manual) PT INR APTT Heparin Anti-Xa Level POC ABG pH POC ABG pCO2 POC ABG pO2 Sodium Potassium Chloride 109.1 H Carbon Dioxide 21 L BUN Creatinine Glucose 183 H POC Glucose 218 H 229 H Calcium Phosphorus Magnesium AST ALT Alkaline Phosphatase 141 H C-Reactive Protein Total Protein Albumin 2.6 L Triglycerides Urine pH Vancomycin Trough Salicylates Tot Complement (CH50) Crossmatch 09/07/17 09/07/17 09/07/17 14:57 16:35 21:30 WBC RBC 2.56 L Hgb 6.6 L Hct 20.5 L MCV 80 L MCH 26 L MCHC RDW 22.5 H Lymph % (Auto) Gaines % (Auto) 8.1 H Lymph # Gaines # 0.9 H Baso # 0.2 H Seg Neutrophils % Seg Neuts % (Manual) Lymphocytes % (Manual) Monocytes % (Manual) Nucleated RBC % Seg Neutrophils # Seg Neutrophils # Man Lymphocytes # (Manual) Monocytes # (Manual) PT INR APTT Heparin Anti-Xa Level POC ABG pH POC ABG pCO2 POC ABG pO2 68 L Sodium Potassium Chloride Carbon Dioxide BUN Creatinine Glucose POC Glucose 256 H Calcium Phosphorus Magnesium AST ALT Alkaline Phosphatase C-Reactive Protein Total Protein Albumin Triglycerides Urine pH Vancomycin Trough Salicylates Tot Complement (CH50) Crossmatch 09/07/17 09/08/17 09/08/17 22:35 08:13 11:50 WBC RBC Hgb Hct MCV MCH MCHC RDW Lymph % (Auto) Gaines % (Auto) Lymph # Gaines # Baso # Seg Neutrophils % Seg Neuts % (Manual) Lymphocytes % (Manual) Monocytes % (Manual) Nucleated RBC % Seg Neutrophils # Seg Neutrophils # Man Lymphocytes # (Manual) Monocytes # (Manual) PT INR APTT Heparin Anti-Xa Level POC ABG pH POC ABG pCO2 POC ABG pO2 Sodium Potassium Chloride Carbon Dioxide BUN Creatinine Glucose POC Glucose 230 H 213 H 206 H Calcium Phosphorus Magnesium AST ALT Alkaline Phosphatase C-Reactive Protein Total Protein Albumin Triglycerides Urine pH Vancomycin Trough Salicylates Tot Complement (CH50) Crossmatch 09/08/17 09/08/17 09/08/17 17:14 20:45 20:50 WBC 12.3 H RBC 2.74 L Hgb 6.7 L Hct 21.8 L MCV 79 L MCH 24 L MCHC 31 L RDW 23.0 H Lymph % (Auto) Gaines % (Auto) 7.7 H Lymph # Gaines # 0.9 H Baso # Seg Neutrophils % Seg Neuts % (Manual) Lymphocytes % (Manual) Monocytes % (Manual) Nucleated RBC % Seg Neutrophils # Seg Neutrophils # Man Lymphocytes # (Manual) Monocytes # (Manual) PT INR APTT Heparin Anti-Xa Level 0.15 L POC ABG pH POC ABG pCO2 POC ABG pO2 Sodium Potassium Chloride Carbon Dioxide BUN Creatinine Glucose POC Glucose 210 H Calcium Phosphorus Magnesium AST ALT Alkaline Phosphatase C-Reactive Protein Total Protein Albumin Triglycerides Urine pH Vancomycin Trough Salicylates Tot Complement (CH50) Crossmatch 09/08/17 09/09/17 09/09/17 22:08 06:50 06:50 WBC RBC 2.64 L Hgb 6.6 L Hct 21.2 L MCV 80 L MCH 25 L MCHC 31 L RDW 22.7 H Lymph % (Auto) Gaines % (Auto) 9.3 H Lymph # Gaines # 1.0 H Baso # Seg Neutrophils % Seg Neuts % (Manual) Lymphocytes % (Manual) Monocytes % (Manual) Nucleated RBC % Seg Neutrophils # Seg Neutrophils # Man Lymphocytes # (Manual) Monocytes # (Manual) PT INR APTT Heparin Anti-Xa Level POC ABG pH POC ABG pCO2 POC ABG pO2 Sodium 136 L Potassium Chloride Carbon Dioxide BUN Creatinine 0.7 L Glucose 182 H POC Glucose 217 H Calcium Phosphorus Magnesium AST ALT Alkaline Phosphatase C-Reactive Protein Total Protein Albumin 2.5 L Triglycerides Urine pH Vancomycin Trough Salicylates Tot Complement (CH50) Crossmatch 09/09/17 09/09/17 09/09/17 08:00 11:24 16:40 WBC RBC Hgb Hct MCV MCH MCHC RDW Lymph % (Auto) Gaines % (Auto) Lymph # Gaines # Baso # Seg Neutrophils % Seg Neuts % (Manual) Lymphocytes % (Manual) Monocytes % (Manual) Nucleated RBC % Seg Neutrophils # Seg Neutrophils # Man Lymphocytes # (Manual) Monocytes # (Manual) PT INR APTT Heparin Anti-Xa Level POC ABG pH POC ABG pCO2 POC ABG pO2 Sodium Potassium Chloride Carbon Dioxide BUN Creatinine Glucose POC Glucose 245 H 257 H 220 H Calcium Phosphorus Magnesium AST ALT Alkaline Phosphatase C-Reactive Protein Total Protein Albumin Triglycerides Urine pH Vancomycin Trough Salicylates Tot Complement (CH50) Crossmatch 1209/09/17 09/09/17 17:50 19:14 19:14 WBC RBC 5.12 H Hgb Hct MCV 80 L MCH 25 L MCHC 31 L RDW 23.3 H Lymph % (Auto) Gaines % (Auto) Lymph # Gaines # Baso # Seg Neutrophils % Seg Neuts % (Manual) Lymphocytes % (Manual) Monocytes % (Manual) Nucleated RBC % Seg Neutrophils # Seg Neutrophils # Man Lymphocytes # (Manual) Monocytes # (Manual) PT INR APTT Heparin Anti-Xa Level < 0.10 L < 0.10 L POC ABG pH POC ABG pCO2 POC ABG pO2 Sodium Potassium Chloride Carbon Dioxide BUN Creatinine Glucose POC Glucose Calcium Phosphorus Magnesium AST ALT Alkaline Phosphatase C-Reactive Protein Total Protein Albumin Triglycerides Urine pH Vancomycin Trough Salicylates Tot Complement (CH50) Crossmatch 09/09/17 09/10/17 09/10/17 23:50 03:55 03:55 WBC 11.1 H RBC 2.59 L Hgb 6.7 L D Hct 20.9 L D MCV 81 L MCH 26 L MCHC RDW 22.6 H Lymph % (Auto) Gaines % (Auto) 8.7 H Lymph # Gaines # 1.0 H Baso # Seg Neutrophils % Seg Neuts % (Manual) Lymphocytes % (Manual) Monocytes % (Manual) Nucleated RBC % Seg Neutrophils # Seg Neutrophils # Man Lymphocytes # (Manual) Monocytes # (Manual) PT INR APTT Heparin Anti-Xa Level POC ABG pH POC ABG pCO2 POC ABG pO2 Sodium Potassium Chloride Carbon Dioxide BUN Creatinine 0.7 L Glucose 191 H POC Glucose 192 H Calcium Phosphorus Magnesium AST ALT Alkaline Phosphatase C-Reactive Protein Total Protein Albumin Triglycerides Urine pH Vancomycin Trough Salicylates Tot Complement (CH50) Crossmatch 09/10/17 09/10/17 09/10/17 08:39 11:33 14:30 WBC RBC Hgb 6.1 L Hct 19.8 L* MCV MCH MCHC RDW Lymph % (Auto) Gaines % (Auto) Lymph # Gaines # Baso # Seg Neutrophils % Seg Neuts % (Manual) Lymphocytes % (Manual) Monocytes % (Manual) Nucleated RBC % Seg Neutrophils # Seg Neutrophils # Man Lymphocytes # (Manual) Monocytes # (Manual) PT INR APTT Heparin Anti-Xa Level POC ABG pH POC ABG pCO2 POC ABG pO2 Sodium Potassium Chloride Carbon Dioxide BUN Creatinine Glucose POC Glucose 233 H 231 H Calcium Phosphorus Magnesium AST ALT Alkaline Phosphatase C-Reactive Protein Total Protein Albumin Triglycerides Urine pH Vancomycin Trough Salicylates Tot Complement (CH50) Crossmatch 09/10/17 09/10/17 09/10/17 16:20 16:50 21:25 WBC RBC Hgb Hct MCV MCH MCHC RDW Lymph % (Auto) Gaines % (Auto) Lymph # Gaines # Baso # Seg Neutrophils % Seg Neuts % (Manual) Lymphocytes % (Manual) Monocytes % (Manual) Nucleated RBC % Seg Neutrophils # Seg Neutrophils # Man Lymphocytes # (Manual) Monocytes # (Manual) PT INR APTT Heparin Anti-Xa Level POC ABG pH POC ABG pCO2 POC ABG pO2 Sodium Potassium Chloride Carbon Dioxide BUN Creatinine Glucose POC Glucose 189 H 113 H Calcium Phosphorus Magnesium AST ALT Alkaline Phosphatase C-Reactive Protein Total Protein Albumin Triglycerides Urine pH Vancomycin Trough Salicylates Tot Complement (CH50) Crossmatch See Detail 09/11/17 09/11/17 09/11/17 04:27 08:06 11:32 WBC RBC Hgb Hct MCV MCH MCHC RDW Lymph % (Auto) Gaines % (Auto) Lymph # Gaines # Baso # Seg Neutrophils % Seg Neuts % (Manual) Lymphocytes % (Manual) Monocytes % (Manual) Nucleated RBC % Seg Neutrophils # Seg Neutrophils # Man Lymphocytes # (Manual) Monocytes # (Manual) PT INR APTT Heparin Anti-Xa Level POC ABG pH POC ABG pCO2 POC ABG pO2 Sodium Potassium Chloride Carbon Dioxide BUN Creatinine Glucose 174 H POC Glucose 232 H 298 H Calcium Phosphorus Magnesium AST ALT Alkaline Phosphatase C-Reactive Protein Total Protein Albumin Triglycerides Urine pH Vancomycin Trough Salicylates Tot Complement (CH50) Crossmatch 09/11/17 09/11/17 09/11/17 14:18 14:20 17:34 WBC RBC Hgb 8.3 L Hct 25.6 L MCV MCH MCHC RDW Lymph % (Auto) Gaines % (Auto) Lymph # Gaines # Baso # Seg Neutrophils % Seg Neuts % (Manual) Lymphocytes % (Manual) Monocytes % (Manual) Nucleated RBC % Seg Neutrophils # Seg Neutrophils # Man Lymphocytes # (Manual) Monocytes # (Manual) PT INR APTT Heparin Anti-Xa Level < 0.10 L POC ABG pH POC ABG pCO2 POC ABG pO2 Sodium Potassium Chloride Carbon Dioxide BUN Creatinine Glucose POC Glucose 184 H Calcium Phosphorus Magnesium AST ALT Alkaline Phosphatase C-Reactive Protein Total Protein Albumin Triglycerides Urine pH Vancomycin Trough Salicylates Tot Complement (CH50) Crossmatch 09/11/17 09/11/17 09/12/17 20:11 22:15 06:08 WBC RBC 3.33 L Hgb 8.6 L Hct 26.9 L MCV 81 L MCH 26 L MCHC RDW 20.3 H Lymph % (Auto) Gaines % (Auto) 8.9 H Lymph # Gaines # Baso # Seg Neutrophils % Seg Neuts % (Manual) Lymphocytes % (Manual) Monocytes % (Manual) Nucleated RBC % Seg Neutrophils # Seg Neutrophils # Man Lymphocytes # (Manual) Monocytes # (Manual) PT INR APTT Heparin Anti-Xa Level POC ABG pH POC ABG pCO2 POC ABG pO2 Sodium Potassium Chloride Carbon Dioxide BUN 22 H Creatinine Glucose 186 H POC Glucose 184 H Calcium Phosphorus Magnesium AST ALT Alkaline Phosphatase C-Reactive Protein Total Protein Albumin Triglycerides Urine pH Vancomycin Trough Salicylates Tot Complement (CH50) Crossmatch 09/12/17 09/12/17 09/12/17 08:09 11:20 17:49 WBC RBC Hgb Hct MCV MCH MCHC RDW Lymph % (Auto) Gaines % (Auto) Lymph # Gaines # Baso # Seg Neutrophils % Seg Neuts % (Manual) Lymphocytes % (Manual) Monocytes % (Manual) Nucleated RBC % Seg Neutrophils # Seg Neutrophils # Man Lymphocytes # (Manual) Monocytes # (Manual) PT INR APTT Heparin Anti-Xa Level POC ABG pH POC ABG pCO2 POC ABG pO2 Sodium Potassium Chloride Carbon Dioxide BUN Creatinine Glucose POC Glucose 228 H 238 H 197 H Calcium Phosphorus Magnesium AST ALT Alkaline Phosphatase C-Reactive Protein Total Protein Albumin Triglycerides Urine pH Vancomycin Trough Salicylates Tot Complement (CH50) Crossmatch 09/12/17 09/13/17 09/13/17 22:50 03:25 07:30 WBC RBC Hgb Hct MCV MCH MCHC RDW Lymph % (Auto) Gaines % (Auto) Lymph # Gaines # Baso # Seg Neutrophils % Seg Neuts % (Manual) Lymphocytes % (Manual) Monocytes % (Manual) Nucleated RBC % Seg Neutrophils # Seg Neutrophils # Man Lymphocytes # (Manual) Monocytes # (Manual) PT INR APTT Heparin Anti-Xa Level POC ABG pH POC ABG pCO2 POC ABG pO2 Sodium Potassium Chloride 97.5 L Carbon Dioxide BUN 22 H Creatinine Glucose 192 H POC Glucose 186 H 210 H Calcium Phosphorus Magnesium AST ALT Alkaline Phosphatase C-Reactive Protein Total Protein Albumin Triglycerides Urine pH Vancomycin Trough Salicylates Tot Complement (CH50) Crossmatch 09/13/17 09/13/17 09/13/17 11:55 16:56 23:57 WBC RBC Hgb Hct MCV MCH MCHC RDW Lymph % (Auto) Gaines % (Auto) Lymph # Gaines # Baso # Seg Neutrophils % Seg Neuts % (Manual) Lymphocytes % (Manual) Monocytes % (Manual) Nucleated RBC % Seg Neutrophils # Seg Neutrophils # Man Lymphocytes # (Manual) Monocytes # (Manual) PT INR APTT Heparin Anti-Xa Level POC ABG pH POC ABG pCO2 POC ABG pO2 Sodium Potassium Chloride Carbon Dioxide BUN Creatinine Glucose POC Glucose 224 H 179 H 153 H Calcium Phosphorus Magnesium AST ALT Alkaline Phosphatase C-Reactive Protein Total Protein Albumin Triglycerides Urine pH Vancomycin Trough Salicylates Tot Complement (CH50) Crossmatch 09/14/17 09/14/17 09/14/17 04:04 06:20 08:34 WBC RBC Hgb Hct MCV MCH MCHC RDW Lymph % (Auto) Gaines % (Auto) Lymph # Gaines # Baso # Seg Neutrophils % Seg Neuts % (Manual) Lymphocytes % (Manual) Monocytes % (Manual) Nucleated RBC % Seg Neutrophils # Seg Neutrophils # Man Lymphocytes # (Manual) Monocytes # (Manual) PT INR APTT Heparin Anti-Xa Level 0.72 H POC ABG pH POC ABG pCO2 POC ABG pO2 Sodium Potassium Chloride Carbon Dioxide BUN 24 H Creatinine Glucose 198 H POC Glucose 205 H Calcium Phosphorus Magnesium AST ALT Alkaline Phosphatase C-Reactive Protein Total Protein Albumin Triglycerides Urine pH Vancomycin Trough Salicylates Tot Complement (CH50) Crossmatch 09/14/17 09/14/17 09/14/17 11:28 15:33 23:06 WBC RBC Hgb Hct MCV MCH MCHC RDW Lymph % (Auto) Gaines % (Auto) Lymph # Gaines # Baso # Seg Neutrophils % Seg Neuts % (Manual) Lymphocytes % (Manual) Monocytes % (Manual) Nucleated RBC % Seg Neutrophils # Seg Neutrophils # Man Lymphocytes # (Manual) Monocytes # (Manual) PT INR APTT Heparin Anti-Xa Level POC ABG pH POC ABG pCO2 POC ABG pO2 Sodium Potassium Chloride Carbon Dioxide BUN Creatinine Glucose POC Glucose 205 H 187 H 177 H Calcium Phosphorus Magnesium AST ALT Alkaline Phosphatase C-Reactive Protein Total Protein Albumin Triglycerides Urine pH Vancomycin Trough Salicylates Tot Complement (CH50) Crossmatch 09/15/17 09/15/17 09/15/17 04:00 07:52 12:00 WBC RBC Hgb Hct MCV MCH MCHC RDW Lymph % (Auto) Gaines % (Auto) Lymph # Gaines # Baso # Seg Neutrophils % Seg Neuts % (Manual) Lymphocytes % (Manual) Monocytes % (Manual) Nucleated RBC % Seg Neutrophils # Seg Neutrophils # Man Lymphocytes # (Manual) Monocytes # (Manual) PT INR APTT Heparin Anti-Xa Level POC ABG pH POC ABG pCO2 POC ABG pO2 Sodium Potassium Chloride Carbon Dioxide BUN 29 H Creatinine Glucose 212 H POC Glucose 254 H 236 H Calcium Phosphorus Magnesium AST ALT Alkaline Phosphatase C-Reactive Protein Total Protein Albumin Triglycerides Urine pH Vancomycin Trough Salicylates Tot Complement (CH50) Crossmatch 09/15/17 09/15/17 09/15/17 13:28 17:07 17:58 WBC RBC 3.38 L Hgb 8.6 L Hct 27.4 L MCV 81 L MCH 26 L MCHC 31 L RDW 19.7 H Lymph % (Auto) Gaines % (Auto) Lymph # Gaines # Baso # Seg Neutrophils % 70.1 H Seg Neuts % (Manual) Lymphocytes % (Manual) Monocytes % (Manual) Nucleated RBC % Seg Neutrophils # Seg Neutrophils # Man Lymphocytes # (Manual) Monocytes # (Manual) PT INR APTT Heparin Anti-Xa Level POC ABG pH POC ABG pCO2 POC ABG pO2 Sodium Potassium Chloride Carbon Dioxide BUN Creatinine Glucose POC Glucose 203 H 208 H Calcium Phosphorus Magnesium AST ALT Alkaline Phosphatase C-Reactive Protein Total Protein Albumin Triglycerides Urine pH Vancomycin Trough Salicylates Tot Complement (CH50) Crossmatch 09/15/17 09/16/17 09/16/17 22:42 07:28 07:44 WBC RBC Hgb Hct MCV MCH MCHC RDW Lymph % (Auto) Gaines % (Auto) Lymph # Gaines # Baso # Seg Neutrophils % Seg Neuts % (Manual) Lymphocytes % (Manual) Monocytes % (Manual) Nucleated RBC % Seg Neutrophils # Seg Neutrophils # Man Lymphocytes # (Manual) Monocytes # (Manual) PT INR APTT Heparin Anti-Xa Level POC ABG pH POC ABG pCO2 POC ABG pO2 Sodium Potassium Chloride Carbon Dioxide BUN 44 H Creatinine Glucose 159 H POC Glucose 171 H 172 H Calcium Phosphorus Magnesium AST ALT Alkaline Phosphatase C-Reactive Protein Total Protein Albumin Triglycerides Urine pH Vancomycin Trough Salicylates Tot Complement (CH50) Crossmatch 09/16/17 09/16/17 09/16/17 11:45 16:41 21:41 WBC RBC Hgb Hct MCV MCH MCHC RDW Lymph % (Auto) Gaines % (Auto) Lymph # Gaines # Baso # Seg Neutrophils % Seg Neuts % (Manual) Lymphocytes % (Manual) Monocytes % (Manual) Nucleated RBC % Seg Neutrophils # Seg Neutrophils # Man Lymphocytes # (Manual) Monocytes # (Manual) PT INR APTT Heparin Anti-Xa Level POC ABG pH POC ABG pCO2 POC ABG pO2 Sodium Potassium Chloride Carbon Dioxide BUN Creatinine Glucose POC Glucose 190 H 186 H 137 H Calcium Phosphorus Magnesium AST ALT Alkaline Phosphatase C-Reactive Protein Total Protein Albumin Triglycerides Urine pH Vancomycin Trough Salicylates Tot Complement (CH50) Crossmatch 09/17/17 09/17/17 09/17/17 04:30 04:40 05:27 WBC RBC Hgb 7.3 L Hct 22.7 L MCV MCH MCHC RDW Lymph % (Auto) Gaines % (Auto) Lymph # Gaines # Baso # Seg Neutrophils % Seg Neuts % (Manual) Lymphocytes % (Manual) Monocytes % (Manual) Nucleated RBC % Seg Neutrophils # Seg Neutrophils # Man Lymphocytes # (Manual) Monocytes # (Manual) PT INR APTT Heparin Anti-Xa Level POC ABG pH POC ABG pCO2 POC ABG pO2 Sodium Potassium Chloride Carbon Dioxide BUN 45 H Creatinine Glucose 166 H POC Glucose Calcium Phosphorus Magnesium AST ALT Alkaline Phosphatase C-Reactive Protein Total Protein Albumin Triglycerides Urine pH Vancomycin Trough Salicylates Tot Complement (CH50) Crossmatch See Detail 09/17/17 09/17/17 09/17/17 07:54 11:59 16:28 WBC RBC Hgb Hct MCV MCH MCHC RDW Lymph % (Auto) Gaines % (Auto) Lymph # Gaines # Baso # Seg Neutrophils % Seg Neuts % (Manual) Lymphocytes % (Manual) Monocytes % (Manual) Nucleated RBC % Seg Neutrophils # Seg Neutrophils # Man Lymphocytes # (Manual) Monocytes # (Manual) PT INR APTT Heparin Anti-Xa Level POC ABG pH POC ABG pCO2 POC ABG pO2 Sodium Potassium Chloride Carbon Dioxide BUN Creatinine Glucose POC Glucose 189 H 185 H 158 H Calcium Phosphorus Magnesium AST ALT Alkaline Phosphatase C-Reactive Protein Total Protein Albumin Triglycerides Urine pH Vancomycin Trough Salicylates Tot Complement (CH50) Crossmatch 09/17/17 09/18/17 09/18/17 22:27 07:18 11:52 WBC RBC Hgb Hct MCV MCH MCHC RDW Lymph % (Auto) Gaines % (Auto) Lymph # Gaines # Baso # Seg Neutrophils % Seg Neuts % (Manual) Lymphocytes % (Manual) Monocytes % (Manual) Nucleated RBC % Seg Neutrophils # Seg Neutrophils # Man Lymphocytes # (Manual) Monocytes # (Manual) PT INR APTT Heparin Anti-Xa Level POC ABG pH POC ABG pCO2 POC ABG pO2 Sodium Potassium Chloride Carbon Dioxide BUN Creatinine Glucose POC Glucose 174 H 314 H 312 H Calcium Phosphorus Magnesium AST ALT Alkaline Phosphatase C-Reactive Protein Total Protein Albumin Triglycerides Urine pH Vancomycin Trough Salicylates Tot Complement (CH50) Crossmatch 09/18/17 09/18/17 09/18/17 16:49 22:50 Unknown WBC RBC Hgb 10.8 L Hct 33.3 L MCV MCH MCHC RDW Lymph % (Auto) Gaines % (Auto) Lymph # Gaines # Baso # Seg Neutrophils % Seg Neuts % (Manual) Lymphocytes % (Manual) Monocytes % (Manual) Nucleated RBC % Seg Neutrophils # Seg Neutrophils # Man Lymphocytes # (Manual) Monocytes # (Manual) PT INR APTT Heparin Anti-Xa Level POC ABG pH POC ABG pCO2 POC ABG pO2 Sodium Potassium Chloride Carbon Dioxide BUN Creatinine Glucose POC Glucose 235 H 191 H Calcium Phosphorus Magnesium AST ALT Alkaline Phosphatase C-Reactive Protein Total Protein Albumin Triglycerides Urine pH Vancomycin Trough Salicylates Tot Complement (CH50) Crossmatch 09/18/17 09/18/17 09/19/17 Unknown Unknown 07:34 WBC RBC Hgb 11.0 L D Hct 32.9 L D MCV 83 L MCH MCHC RDW 19.3 H Lymph % (Auto) Gaines % (Auto) Lymph # Gaines # Baso # Seg Neutrophils % Seg Neuts % (Manual) Lymphocytes % (Manual) Monocytes % (Manual) Nucleated RBC % Seg Neutrophils # Seg Neutrophils # Man Lymphocytes # (Manual) Monocytes # (Manual) PT INR APTT Heparin Anti-Xa Level POC ABG pH POC ABG pCO2 POC ABG pO2 Sodium Potassium Chloride Carbon Dioxide BUN 37 H Creatinine Glucose 275 H POC Glucose 266 H Calcium Phosphorus Magnesium AST ALT Alkaline Phosphatase C-Reactive Protein Total Protein Albumin 2.2 L Triglycerides Urine pH Vancomycin Trough Salicylates Tot Complement (CH50) Crossmatch 09/19/17 09/19/17 09/19/17 10:15 11:23 11:26 WBC RBC Hgb 10.4 L Hct 31.7 L MCV MCH MCHC RDW 19.3 H Lymph % (Auto) Gaines % (Auto) 8.1 H Lymph # Gaines # Baso # Seg Neutrophils % Seg Neuts % (Manual) Lymphocytes % (Manual) Monocytes % (Manual) Nucleated RBC % Seg Neutrophils # Seg Neutrophils # Man Lymphocytes # (Manual) Monocytes # (Manual) PT INR APTT Heparin Anti-Xa Level POC ABG pH POC ABG pCO2 POC ABG pO2 Sodium Potassium Chloride Carbon Dioxide 21 L BUN 50 H Creatinine Glucose 263 H POC Glucose 284 H Calcium Phosphorus Magnesium AST 50 H ALT 78 H Alkaline Phosphatase C-Reactive Protein Total Protein Albumin 2.5 L Triglycerides Urine pH Vancomycin Trough Salicylates Tot Complement (CH50) Crossmatch 09/19/17 09/19/17 09/20/17 17:20 22:25 03:15 WBC RBC Hgb Hct MCV MCH MCHC RDW Lymph % (Auto) Gaines % (Auto) Lymph # Gaines # Baso # Seg Neutrophils % Seg Neuts % (Manual) Lymphocytes % (Manual) Monocytes % (Manual) Nucleated RBC % Seg Neutrophils # Seg Neutrophils # Man Lymphocytes # (Manual) Monocytes # (Manual) PT INR APTT Heparin Anti-Xa Level POC ABG pH POC ABG pCO2 POC ABG pO2 Sodium Potassium Chloride Carbon Dioxide BUN 50 H Creatinine Glucose 217 H POC Glucose 143 H 223 H Calcium Phosphorus Magnesium AST 222 H ALT 335 H Alkaline Phosphatase C-Reactive Protein Total Protein 6.0 L Albumin 2.3 L Triglycerides Urine pH Vancomycin Trough Salicylates Tot Complement (CH50) Crossmatch 09/20/17 09/20/17 09/20/17 03:15 07:40 11:35 WBC RBC 3.22 L Hgb 8.9 L Hct 27.4 L MCV MCH MCHC RDW 19.6 H Lymph % (Auto) Gaines % (Auto) 10.5 H Lymph # Gaines # 0.9 H Baso # Seg Neutrophils % Seg Neuts % (Manual) Lymphocytes % (Manual) Monocytes % (Manual) Nucleated RBC % Seg Neutrophils # Seg Neutrophils # Man Lymphocytes # (Manual) Monocytes # (Manual) PT INR APTT Heparin Anti-Xa Level POC ABG pH POC ABG pCO2 POC ABG pO2 Sodium Potassium Chloride Carbon Dioxide BUN Creatinine Glucose POC Glucose 187 H 267 H Calcium Phosphorus Magnesium AST ALT Alkaline Phosphatase C-Reactive Protein Total Protein Albumin Triglycerides Urine pH Vancomycin Trough Salicylates Tot Complement (CH50) Crossmatch 09/20/17 09/20/17 09/21/17 16:42 22:14 05:20 WBC RBC Hgb Hct MCV MCH MCHC RDW Lymph % (Auto) Gaines % (Auto) Lymph # Gaines # Baso # Seg Neutrophils % Seg Neuts % (Manual) Lymphocytes % (Manual) Monocytes % (Manual) Nucleated RBC % Seg Neutrophils # Seg Neutrophils # Man Lymphocytes # (Manual) Monocytes # (Manual) PT INR APTT Heparin Anti-Xa Level POC ABG pH POC ABG pCO2 POC ABG pO2 Sodium 136 L Potassium Chloride Carbon Dioxide 21 L BUN 71 H Creatinine 1.8 H D Glucose 279 H POC Glucose 264 H 289 H Calcium Phosphorus Magnesium 2.40 H AST ALT Alkaline Phosphatase C-Reactive Protein Total Protein Albumin Triglycerides Urine pH Vancomycin Trough Salicylates Tot Complement (CH50) Crossmatch 09/21/17 09/21/17 09/21/17 07:22 10:51 10:51 WBC RBC 3.06 L Hgb 8.5 L Hct 26.1 L MCV MCH MCHC RDW 19.7 H Lymph % (Auto) Gaines % (Auto) 8.3 H Lymph # Gaines # Baso # Seg Neutrophils % Seg Neuts % (Manual) Lymphocytes % (Manual) Monocytes % (Manual) Nucleated RBC % Seg Neutrophils # Seg Neutrophils # Man Lymphocytes # (Manual) Monocytes # (Manual) PT INR APTT Heparin Anti-Xa Level POC ABG pH POC ABG pCO2 POC ABG pO2 Sodium Potassium Chloride Carbon Dioxide 19 L BUN 71 H Creatinine 2.0 H Glucose 265 H POC Glucose 341 H Calcium Phosphorus Magnesium AST ALT 132 H Alkaline Phosphatase C-Reactive Protein Total Protein 6.0 L Albumin 2.3 L Triglycerides Urine pH Vancomycin Trough Salicylates Tot Complement (CH50) Crossmatch 09/21/17 09/21/17 09/21/17 11:38 16:25 22:57 WBC RBC Hgb Hct MCV MCH MCHC RDW Lymph % (Auto) Gaines % (Auto) Lymph # Gaines # Baso # Seg Neutrophils % Seg Neuts % (Manual) Lymphocytes % (Manual) Monocytes % (Manual) Nucleated RBC % Seg Neutrophils # Seg Neutrophils # Man Lymphocytes # (Manual) Monocytes # (Manual) PT INR APTT Heparin Anti-Xa Level POC ABG pH POC ABG pCO2 POC ABG pO2 Sodium Potassium Chloride Carbon Dioxide BUN Creatinine Glucose POC Glucose 324 H 284 H 247 H Calcium Phosphorus Magnesium AST ALT Alkaline Phosphatase C-Reactive Protein Total Protein Albumin Triglycerides Urine pH Vancomycin Trough Salicylates Tot Complement (CH50) Crossmatch 09/22/17 09/22/17 09/22/17 04:30 04:30 04:31 WBC RBC Hgb Hct MCV MCH MCHC RDW Lymph % (Auto) Gaines % (Auto) Lymph # Gaines # Baso # Seg Neutrophils % Seg Neuts % (Manual) Lymphocytes % (Manual) Monocytes % (Manual) Nucleated RBC % Seg Neutrophils # Seg Neutrophils # Man Lymphocytes # (Manual) Monocytes # (Manual) PT INR APTT Heparin Anti-Xa Level POC ABG pH POC ABG pCO2 POC ABG pO2 Sodium 136 L Potassium Chloride Carbon Dioxide 18 L BUN 87 H Creatinine 2.3 H Glucose 331 H POC Glucose 309 H Calcium Phosphorus 5.20 H Magnesium 2.60 H AST ALT 96 H Alkaline Phosphatase C-Reactive Protein Total Protein Albumin 2.6 L Triglycerides Urine pH Vancomycin Trough Salicylates Tot Complement (CH50) Crossmatch 09/22/17 09/22/17 09/22/17 07:10 07:21 08:43 WBC RBC 2.93 L Hgb 9.6 L Hct 28.1 L MCV 96 H MCH 33 H MCHC RDW 20.5 H Lymph % (Auto) Gaines % (Auto) Lymph # Gaines # Baso # Seg Neutrophils % 79.5 H Seg Neuts % (Manual) Lymphocytes % (Manual) Monocytes % (Manual) Nucleated RBC % Seg Neutrophils # Seg Neutrophils # Man Lymphocytes # (Manual) Monocytes # (Manual) PT INR APTT Heparin Anti-Xa Level POC ABG pH POC ABG pCO2 POC ABG pO2 Sodium Potassium Chloride Carbon Dioxide BUN Creatinine Glucose POC Glucose 325 H 341 H Calcium Phosphorus Magnesium AST ALT Alkaline Phosphatase C-Reactive Protein Total Protein Albumin Triglycerides Urine pH Vancomycin Trough Salicylates Tot Complement (CH50) Crossmatch 09/22/17 09/22/17 09/22/17 11:28 11:47 13:25 WBC RBC Hgb Hct MCV MCH MCHC RDW Lymph % (Auto) Gaines % (Auto) Lymph # Gaines # Baso # Seg Neutrophils % Seg Neuts % (Manual) Lymphocytes % (Manual) Monocytes % (Manual) Nucleated RBC % Seg Neutrophils # Seg Neutrophils # Man Lymphocytes # (Manual) Monocytes # (Manual) PT INR APTT Heparin Anti-Xa Level POC ABG pH 7.256 L POC ABG pCO2 POC ABG pO2 70 L Sodium Potassium Chloride Carbon Dioxide BUN Creatinine Glucose POC Glucose 384 H Calcium Phosphorus Magnesium AST ALT Alkaline Phosphatase C-Reactive Protein 6.60 H Total Protein Albumin Triglycerides Urine pH Vancomycin Trough Salicylates Tot Complement (CH50) Crossmatch 09/22/17 09/22/17 09/22/17 15:23 17:39 21:49 WBC RBC Hgb Hct MCV MCH MCHC RDW Lymph % (Auto) Gaines % (Auto) Lymph # Gaines # Baso # Seg Neutrophils % Seg Neuts % (Manual) Lymphocytes % (Manual) Monocytes % (Manual) Nucleated RBC % Seg Neutrophils # Seg Neutrophils # Man Lymphocytes # (Manual) Monocytes # (Manual) PT INR APTT Heparin Anti-Xa Level POC ABG pH POC ABG pCO2 POC ABG pO2 Sodium Potassium Chloride Carbon Dioxide BUN Creatinine Glucose POC Glucose 364 H 332 H 290 H Calcium Phosphorus Magnesium AST ALT Alkaline Phosphatase C-Reactive Protein Total Protein Albumin Triglycerides Urine pH Vancomycin Trough Salicylates Tot Complement (CH50) Crossmatch 09/23/17 09/23/17 09/23/17 01:45 04:55 05:11 WBC RBC Hgb Hct MCV MCH MCHC RDW Lymph % (Auto) Gaines % (Auto) Lymph # Gaines # Baso # Seg Neutrophils % Seg Neuts % (Manual) Lymphocytes % (Manual) Monocytes % (Manual) Nucleated RBC % Seg Neutrophils # Seg Neutrophils # Man Lymphocytes # (Manual) Monocytes # (Manual) PT INR APTT Heparin Anti-Xa Level POC ABG pH 7.333 L POC ABG pCO2 POC ABG pO2 132 H Sodium 134 L Potassium Chloride Carbon Dioxide 18 L BUN 103 H Creatinine 2.6 H Glucose 326 H POC Glucose 346 H Calcium Phosphorus 5.40 H Magnesium 2.60 H AST ALT Alkaline Phosphatase C-Reactive Protein Total Protein Albumin Triglycerides Urine pH Vancomycin Trough Salicylates Tot Complement (CH50) Crossmatch 09/23/17 09/23/17 09/23/17 05:46 10:13 14:34 WBC RBC Hgb Hct MCV MCH MCHC RDW Lymph % (Auto) Gaines % (Auto) Lymph # Gaines # Baso # Seg Neutrophils % Seg Neuts % (Manual) Lymphocytes % (Manual) Monocytes % (Manual) Nucleated RBC % Seg Neutrophils # Seg Neutrophils # Man Lymphocytes # (Manual) Monocytes # (Manual) PT INR APTT Heparin Anti-Xa Level POC ABG pH POC ABG pCO2 POC ABG pO2 Sodium Potassium Chloride Carbon Dioxide BUN Creatinine Glucose POC Glucose 307 H 307 H 307 H Calcium Phosphorus Magnesium AST ALT Alkaline Phosphatase C-Reactive Protein Total Protein Albumin Triglycerides Urine pH Vancomycin Trough Salicylates Tot Complement (CH50) Crossmatch 09/23/17 09/23/17 09/24/17 17:25 22:40 03:00 WBC RBC Hgb Hct MCV MCH MCHC RDW Lymph % (Auto) Gaines % (Auto) Lymph # Gaines # Baso # Seg Neutrophils % Seg Neuts % (Manual) Lymphocytes % (Manual) Monocytes % (Manual) Nucleated RBC % Seg Neutrophils # Seg Neutrophils # Man Lymphocytes # (Manual) Monocytes # (Manual) PT INR APTT Heparin Anti-Xa Level POC ABG pH POC ABG pCO2 POC ABG pO2 Sodium Potassium Chloride Carbon Dioxide BUN Creatinine Glucose POC Glucose 267 H 316 H 287 H Calcium Phosphorus Magnesium AST ALT Alkaline Phosphatase C-Reactive Protein Total Protein Albumin Triglycerides Urine pH Vancomycin Trough Salicylates Tot Complement (CH50) Crossmatch 09/24/17 09/24/17 09/24/17 04:00 04:00 05:07 WBC RBC Hgb Hct 22.8 L MCV MCH 34 H MCHC RDW 19.5 H Lymph % (Auto) Gaines % (Auto) Lymph # Gaines # Baso # Seg Neutrophils % Seg Neuts % (Manual) Lymphocytes % (Manual) Monocytes % (Manual) Nucleated RBC % Seg Neutrophils # Seg Neutrophils # Man Lymphocytes # (Manual) Monocytes # (Manual) PT INR APTT Heparin Anti-Xa Level POC ABG pH POC ABG pCO2 33.6 L POC ABG pO2 Sodium 132 L Potassium Chloride 86.8 L Carbon Dioxide 17 L BUN 105 H Creatinine 2.2 H Glucose 299 H POC Glucose Calcium Phosphorus 5.80 H Magnesium AST ALT Alkaline Phosphatase C-Reactive Protein Total Protein Albumin Triglycerides Urine pH Vancomycin Trough Salicylates Tot Complement (CH50) Crossmatch 09/24/17 09/24/17 09/24/17 06:00 06:00 10:22 WBC RBC 2.89 L Hgb 8.0 L Hct 23.6 L MCV 82 L MCH MCHC RDW 19.2 H Lymph % (Auto) 10.9 L Gaines % (Auto) Lymph # 0.8 L Gaines # Baso # Seg Neutrophils % 85.4 H Seg Neuts % (Manual) Lymphocytes % (Manual) Monocytes % (Manual) Nucleated RBC % Seg Neutrophils # Seg Neutrophils # Man Lymphocytes # (Manual) Monocytes # (Manual) PT INR APTT Heparin Anti-Xa Level POC ABG pH POC ABG pCO2 POC ABG pO2 Sodium Potassium Chloride Carbon Dioxide BUN Creatinine Glucose POC Glucose 345 H Calcium Phosphorus Magnesium AST ALT Alkaline Phosphatase C-Reactive Protein Total Protein Albumin Triglycerides Urine pH Vancomycin Trough Salicylates Tot Complement (CH50) >60 H Crossmatch 09/24/17 09/24/17 09/24/17 13:55 14:04 19:45 WBC RBC Hgb Hct MCV MCH MCHC RDW Lymph % (Auto) Gaines % (Auto) Lymph # Gaines # Baso # Seg Neutrophils % Seg Neuts % (Manual) Lymphocytes % (Manual) Monocytes % (Manual) Nucleated RBC % Seg Neutrophils # Seg Neutrophils # Man Lymphocytes # (Manual) Monocytes # (Manual) PT INR APTT Heparin Anti-Xa Level POC ABG pH 7.330 L POC ABG pCO2 POC ABG pO2 Sodium Potassium Chloride Carbon Dioxide BUN Creatinine Glucose POC Glucose 351 H 265 H Calcium Phosphorus Magnesium AST ALT Alkaline Phosphatase C-Reactive Protein Total Protein Albumin Triglycerides Urine pH Vancomycin Trough Salicylates Tot Complement (CH50) Crossmatch 09/25/17 09/25/17 09/25/17 00:50 04:00 05:49 WBC RBC Hgb Hct MCV MCH MCHC RDW Lymph % (Auto) Gaines % (Auto) Lymph # Gaines # Baso # Seg Neutrophils % Seg Neuts % (Manual) Lymphocytes % (Manual) Monocytes % (Manual) Nucleated RBC % Seg Neutrophils # Seg Neutrophils # Man Lymphocytes # (Manual) Monocytes # (Manual) PT INR APTT Heparin Anti-Xa Level POC ABG pH POC ABG pCO2 POC ABG pO2 Sodium 135 L Potassium Chloride 95.7 L Carbon Dioxide BUN 125 H Creatinine 2.1 H Glucose 360 H POC Glucose 328 H 296 H Calcium Phosphorus 5.70 H Magnesium AST ALT Alkaline Phosphatase C-Reactive Protein Total Protein Albumin Triglycerides Urine pH Vancomycin Trough Salicylates Tot Complement (CH50) Crossmatch 1209/25/17 09/25/17 10:56 17:30 21:36 WBC RBC Hgb Hct MCV MCH MCHC RDW Lymph % (Auto) Gaines % (Auto) Lymph # Gaines # Baso # Seg Neutrophils % Seg Neuts % (Manual) Lymphocytes % (Manual) Monocytes % (Manual) Nucleated RBC % Seg Neutrophils # Seg Neutrophils # Man Lymphocytes # (Manual) Monocytes # (Manual) PT INR APTT Heparin Anti-Xa Level POC ABG pH POC ABG pCO2 POC ABG pO2 Sodium Potassium Chloride Carbon Dioxide BUN Creatinine Glucose POC Glucose 379 H 392 H 259 H Calcium Phosphorus Magnesium AST ALT Alkaline Phosphatase C-Reactive Protein Total Protein Albumin Triglycerides Urine pH Vancomycin Trough Salicylates Tot Complement (CH50) Crossmatch 09/26/17 09/26/17 09/26/17 02:19 05:50 10:08 WBC RBC Hgb Hct MCV MCH MCHC RDW Lymph % (Auto) Gaines % (Auto) Lymph # Gaines # Baso # Seg Neutrophils % Seg Neuts % (Manual) Lymphocytes % (Manual) Monocytes % (Manual) Nucleated RBC % Seg Neutrophils # Seg Neutrophils # Man Lymphocytes # (Manual) Monocytes # (Manual) PT INR APTT Heparin Anti-Xa Level POC ABG pH POC ABG pCO2 POC ABG pO2 Sodium Potassium Chloride Carbon Dioxide BUN Creatinine Glucose POC Glucose 199 H 218 H 161 H Calcium Phosphorus Magnesium AST ALT Alkaline Phosphatase C-Reactive Protein Total Protein Albumin Triglycerides Urine pH Vancomycin Trough Salicylates Tot Complement (CH50) Crossmatch 09/26/17 09/26/17 09/26/17 11:45 13:57 17:51 WBC RBC Hgb Hct MCV MCH MCHC RDW Lymph % (Auto) Gaines % (Auto) Lymph # Gaines # Baso # Seg Neutrophils % Seg Neuts % (Manual) Lymphocytes % (Manual) Monocytes % (Manual) Nucleated RBC % Seg Neutrophils # Seg Neutrophils # Man Lymphocytes # (Manual) Monocytes # (Manual) PT INR APTT Heparin Anti-Xa Level POC ABG pH POC ABG pCO2 POC ABG pO2 Sodium Potassium 2.8 L* D Chloride Carbon Dioxide BUN 118 H Creatinine 1.7 H Glucose 171 H POC Glucose 177 H 183 H Calcium Phosphorus Magnesium AST ALT Alkaline Phosphatase C-Reactive Protein Total Protein Albumin Triglycerides Urine pH Vancomycin Trough Salicylates Tot Complement (CH50) Crossmatch 09/26/17 09/27/17 09/27/17 23:30 01:48 05:13 WBC RBC Hgb Hct MCV MCH MCHC RDW Lymph % (Auto) Gaines % (Auto) Lymph # Gaines # Baso # Seg Neutrophils % Seg Neuts % (Manual) Lymphocytes % (Manual) Monocytes % (Manual) Nucleated RBC % Seg Neutrophils # Seg Neutrophils # Man Lymphocytes # (Manual) Monocytes # (Manual) PT INR APTT Heparin Anti-Xa Level POC ABG pH POC ABG pCO2 POC ABG pO2 Sodium Potassium Chloride Carbon Dioxide BUN Creatinine Glucose POC Glucose 168 H 147 H 161 H Calcium Phosphorus Magnesium AST ALT Alkaline Phosphatase C-Reactive Protein Total Protein Albumin Triglycerides Urine pH Vancomycin Trough Salicylates Tot Complement (CH50) Crossmatch 09/27/17 09/27/17 06:00 07:00 WBC 12.1 H RBC 3.20 L Hgb 8.5 L Hct 26.0 L MCV 81 L MCH 27 L MCHC RDW 18.8 H Lymph % (Auto) Gaines % (Auto) Lymph # Gaines # Baso # Seg Neutrophils % Seg Neuts % (Manual) 90.0 H Lymphocytes % (Manual) 5.0 L Monocytes % (Manual) Nucleated RBC % Seg Neutrophils # Seg Neutrophils # Man 10.9 H Lymphocytes # (Manual) 0.6 L Monocytes # (Manual) PT INR APTT Heparin Anti-Xa Level POC ABG pH POC ABG pCO2 POC ABG pO2 Sodium 148 H Potassium 3.2 L Chloride 107.1 H Carbon Dioxide BUN 103 H Creatinine Glucose 157 H POC Glucose Calcium Phosphorus Magnesium AST ALT Alkaline Phosphatase C-Reactive Protein Total Protein Albumin Triglycerides Urine pH Vancomycin Trough Salicylates Tot Complement (CH50) Crossmatch Allied health notes reviewed: RT
[2017-09-27] MEDS ORDERED: K-DUR PO ONE (13:00)
[2017-09-27] MEDS: APRESOLINE PO SCH ×2 (13:27→22:05)
[2017-09-27] MEDS ORDERED: NORCO 5/325 PO PRN (14:10)
[2017-09-27] MEDS ORDERED: TYLENOL PO PRN (14:10)
--- NOTE | 2017-09-27 20:13 | Progress Note ---
Assessment and Plan - Patient Problems (1) Colon cancer metastasized to multiple sites Current Visit: Yes Status: Ruled-out Plan to address problem: No definite evidence of multiple metastasis to lung or liver at this point. Repeat CT of the chest was reviewed extensively with Dr. Bradford and he is not convinced at this time that the lesion in the lung is a metastatic lesion. 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 (2) Altered mental status Current Visit: Yes Status: Resolved Qualifiers: Altered mental status type: transient alteration of awareness Qualified Code(s): R40.4 - Transient alteration of awareness Plan to address problem: Patient is more alert and following appropriately. (3) Fever Current Visit: Yes Status: Resolved Qualifiers: Fever type: unspecified Qualified Code(s): R50.9 - Fever, unspecified Plan to address problem: Fever has now resolved afebrile the past few days (4) Hypertension Current Visit: Yes Status: Acute Qualifiers: Hypertension type: essential hypertension Qualified Code(s): I10 - Essential (primary) hypertension (5) Type 2 diabetes mellitus without complications Current Visit: Yes Status: Acute (6) Deep vein blood clot of left lower extremity Current Visit: Yes Status: Acute (7) Anemia Current Visit: Yes Status: Acute Qualifiers: Iron deficiency anemia type: chronic blood loss (8) Abdominal pain Current Visit: Yes Status: Acute Qualifiers: Abdominal location: upper abdomen, unspecified Qualified Code(s): R10.10 - Upper abdominal pain, unspecified (9) Lower GI bleed Current Visit: Yes Status: Acute (10) Petechial rash Current Visit: Yes Status: Acute (11) Abnormal liver function test Current Visit: Yes Status: Resolved (12) Respiratory failure requiring intubation Current Visit: Yes Status: Acute Plan to address problem: Patient is status post extubation and stable respiratory status on O2 nasal canula .Will transfer to LTAC when bed is available . Consult for LTAC asessment . (13) Acute kidney injury Current Visit: Yes Status: Acute Plan to address problem: Improving clinically , good urinary output and Bun And Creatinine trending down . Subjective Date of service: 09/27/17 Principal diagnosis: Sepsis Syndrome; Acute Hypoxemic Resp Failure; Acute Encephalopathy; ESRD Interval history: Patient alert and stated that he is doing well overall .Denied any chest pain and no shortness of breath .Vitals stable tolerating soft diet . Objective - Exam Narrative Exam: GENERAL:Awake alert , sitting up in bed not in acute distress HEENT: Mucous membrane is moist, pharynx is clear. NECK: [No JVD, no thyroid enlargement and no lymphadenopathy.] CHEST/LUNGS: Good range of motion bilaterally [No chest wall tenderness, percussion is normal, symmetrical chest wall.] HEART/CARDIOVASCULAR: Tachycardia. Second heart sounds only there is no audible murmur.] ABDOMEN: [Abdomen is soft, non distended, multiple healed laparotomy scars no guarding, no rebound tenderness, , active bowel sounds.] SKIN: Warm and dry NEURO: Alert and oriented x3 moving all four extremities EXTREMITIES: Pedal edema left lower extremity up to below the knee, no edema on the right, good peripheral pulses bilaterally no finger or toe clubbing. - Constitutional Vitals: Vital Signs - 12hr 09/27/17 09/27/17 09/27/17 08:15 09:01 09:27 Temperature Pulse Rate 63 65 Pulse Rate [ Anterior Bilateral Throughout] Pulse Rate [ 72 Apical] Pulse Rate [ 72 From Monitor] Respiratory 22 19 Rate Respiratory Rate [Anterior Bilateral Throughout] Blood Pressure 177/78 177/78 O2 Sat by Pulse 100 99 Oximetry 09/27/17 09/27/17 09/27/17 09:32 09:34 09:54 Temperature Pulse Rate Pulse Rate [ 65 70 Anterior Bilateral Throughout] Pulse Rate [ Apical] Pulse Rate [ From Monitor] Respiratory Rate Respiratory 16 18 Rate [Anterior Bilateral Throughout] Blood Pressure O2 Sat by Pulse 100 Oximetry 09/27/17 09/27/17 09/27/17 10:00 11:01 12:00 Temperature 97.5 F L Pulse Rate 75 70 72 Pulse Rate [ Anterior Bilateral Throughout] Pulse Rate [ Apical] Pulse Rate [ From Monitor] Respiratory 17 11 L 23 Rate Respiratory Rate [Anterior Bilateral Throughout] Blood Pressure 180/75 178/76 184/78 O2 Sat by Pulse 98 96 97 Oximetry 09/27/17 09/27/17 09/27/17 12:15 13:01 13:27 Temperature Pulse Rate 71 75 Pulse Rate [ Anterior Bilateral Throughout] Pulse Rate [ 73 Apical] Pulse Rate [ 73 From Monitor] Respiratory 22 17 Rate Respiratory Rate [Anterior Bilateral Throughout] Blood Pressure 181/68 181/68 O2 Sat by Pulse 99 98 Oximetry 09/27/17 09/27/17 09/27/17 14:01 14:46 15:00 Temperature Pulse Rate 67 76 Pulse Rate [ 66 73 Anterior Bilateral Throughout] Pulse Rate [ Apical] Pulse Rate [ From Monitor] Respiratory 17 19 Rate Respiratory 16 16 Rate [Anterior Bilateral Throughout] Blood Pressure 185/74 176/80 O2 Sat by Pulse 98 99 Oximetry 09/27/17 09/27/17 09/27/17 15:40 16:00 17:00 Temperature 97.6 F Pulse Rate 77 74 Pulse Rate [ Anterior Bilateral Throughout] Pulse Rate [ 72 Apical] Pulse Rate [ 72 From Monitor] Respiratory 220 H 17 20 Rate Respiratory Rate [Anterior Bilateral Throughout] Blood Pressure 166/74 163/74 O2 Sat by Pulse 100 98 97 Oximetry 09/27/17 18:00 Temperature Pulse Rate 67 Pulse Rate [ Anterior Bilateral Throughout] Pulse Rate [ Apical] Pulse Rate [ From Monitor] Respiratory 21 Rate Respiratory Rate [Anterior Bilateral Throughout] Blood Pressure 170/70 O2 Sat by Pulse 98 Oximetry - Labs CBC & Chem 7: 09/27/17 06:00 09/27/17 07:00 Labs: Abnormal lab results 09/24/17 09/26/17 09/26/17 Range/Units 06:00 10:08 13:57 WBC (4.5-11.0) K/mm3 RBC (3.65-5.03) M/mm3 Hgb (11.8-15.2) gm/dl Hct (35.5-45.6) % MCV (84-94) fl MCH (28-32) pg RDW (13.2-15.2) % Seg Neuts % (Manual) (40.0-70.0) % Lymphocytes % (Manual) (13.4-35.0) % Seg Neutrophils # Man (1.8-7.7) K/mm3 Lymphocytes # (Manual) (1.2-5.4) K/mm3 Sodium (137-145) mmol/L Potassium (3.6-5.0) mmol/L Chloride (98-107) mmol/L BUN (9-20) mg/dL Glucose (75-100) mg/dL POC Glucose 161 H 177 H (70-105) Tot Complement (CH50) >60 H (31-60) U/mL 09/26/17 09/26/17 09/27/17 Range/Units 17:51 23:30 01:48 WBC (4.5-11.0) K/mm3 RBC (3.65-5.03) M/mm3 Hgb (11.8-15.2) gm/dl Hct (35.5-45.6) % MCV (84-94) fl MCH (28-32) pg RDW (13.2-15.2) % Seg Neuts % (Manual) (40.0-70.0) % Lymphocytes % (Manual) (13.4-35.0) % Seg Neutrophils # Man (1.8-7.7) K/mm3 Lymphocytes # (Manual) (1.2-5.4) K/mm3 Sodium (137-145) mmol/L Potassium (3.6-5.0) mmol/L Chloride (98-107) mmol/L BUN (9-20) mg/dL Glucose (75-100) mg/dL POC Glucose 183 H 168 H 147 H (70-105) Tot Complement (CH50) (31-60) U/mL 09/27/17 09/27/17 09/27/17 Range/Units 05:13 06:00 07:00 WBC 12.1 H (4.5-11.0) K/mm3 RBC 3.20 L (3.65-5.03) M/mm3 Hgb 8.5 L (11.8-15.2) gm/dl Hct 26.0 L (35.5-45.6) % MCV 81 L (84-94) fl MCH 27 L (28-32) pg RDW 18.8 H (13.2-15.2) % Seg Neuts % (Manual) 90.0 H (40.0-70.0) % Lymphocytes % (Manual) 5.0 L (13.4-35.0) % Seg Neutrophils # Man 10.9 H (1.8-7.7) K/mm3 Lymphocytes # (Manual) 0.6 L (1.2-5.4) K/mm3 Sodium 148 H (137-145) mmol/L Potassium 3.2 L (3.6-5.0) mmol/L Chloride 107.1 H (98-107) mmol/L BUN 103 H (9-20) mg/dL Glucose 157 H (75-100) mg/dL POC Glucose 161 H (70-105) Tot Complement (CH50) (31-60) U/mL 09/27/17 09/27/17 09/27/17 Range/Units 09:58 14:15 17:05 WBC (4.5-11.0) K/mm3 RBC (3.65-5.03) M/mm3 Hgb (11.8-15.2) gm/dl Hct (35.5-45.6) % MCV (84-94) fl MCH (28-32) pg RDW (13.2-15.2) % Seg Neuts % (Manual) (40.0-70.0) % Lymphocytes % (Manual) (13.4-35.0) % Seg Neutrophils # Man (1.8-7.7) K/mm3 Lymphocytes # (Manual) (1.2-5.4) K/mm3 Sodium (137-145) mmol/L Potassium (3.6-5.0) mmol/L Chloride (98-107) mmol/L BUN (9-20) mg/dL Glucose (75-100) mg/dL POC Glucose 199 H 268 H 298 H (70-105) Tot Complement (CH50) (31-60) U/mL
[2017-09-27] MEDS ORDERED: PROTONIX PO SCH (22:00)
[2017-09-28] MEDS: NOVOLOG SUB-Q SCH ×3 (02:30→08:00)
[2017-09-28] MEDS: APRESOLINE PO SCH (06:50)
[2017-09-28] MEDS: DUONEB *Not for PRN Use IH SCH ×2 (09:08→14:29)
[2017-09-28] MEDS: PULMICORT IH SCH (09:08)
[2017-09-28] MEDS ORDERED: LASIX PO SCH (10:00)
[2017-09-28] MEDS ORDERED: LEVEMIR SUB-Q SCH (10:00)
[2017-09-28] MEDS: PROTONIX FEEDTUBE SCH (10:55)
[2017-09-28] MEDS: NORVASC PO SCH (10:56)
--- NOTE | 2017-09-28 11:12 | Progress Note ---
Assessment and Plan - Patient Problems (1) Acute kidney injury Current Visit: Yes Status: Acute Plan to address problem: Acute kidney injury acute tubular necrosis secondary to hypotension/contrast exposure, now in recovery phase, last Cr down to 1.5mg/dl with excellent UOP cont lasix 40mg po qd. elevated BUN, likely due to pre-renal azotemia/IV steroid use, recent GI bleed. Supportive care for RACHEL/ATN Follow-up electrolytes and renal function. (2) Hypertension Current Visit: Yes Status: Acute Qualifiers: Hypertension type: essential hypertension Qualified Code(s): I10 - Essential (primary) hypertension Plan to address problem: BP remains elevated titrate up hydralazine to 50mg po q8hr (3) Hypokalemia Current Visit: Yes Status: Acute Plan to address problem: supplement with KDur (4) DVT (deep venous thrombosis) Current Visit: Yes Status: Acute Qualifiers: Laterality: left Plan to address problem: continue anticoagulation, hematology on case (5) Elevated liver enzymes Current Visit: Yes Status: Acute Plan to address problem: monitor LFTs (6) Pulmonary embolism Current Visit: Yes Status: Acute Plan to address problem: on anticoagulation (7) Type 2 diabetes mellitus without complications Current Visit: Yes Status: Acute Plan to address problem: glucose control as per primary attending (8) Colon cancer metastasized to multiple sites Current Visit: Yes Status: Ruled-out Plan to address problem: management as per oncology (9) Anemia Current Visit: Yes Status: Acute Qualifiers: Iron deficiency anemia type: chronic blood loss Plan to address problem: monitor hb Subjective Date of service: 09/28/17 Principal diagnosis: Sepsis Syndrome; Acute Hypoxemic Resp Failure; Acute Encephalopathy; ESRD Interval history: pt awake, alert, in no acute respiratory distress Objective - Vital Signs Vital signs: Vital Signs - 12hr 09/27/17 09/28/17 09/28/17 23:37 05:58 06:50 Temperature 98.5 F 98.5 F Pulse Rate 70 67 66 Pulse Rate [ Anterior Bilateral Throughout] Respiratory 18 22 Rate Respiratory Rate [Anterior Bilateral Throughout] Blood Pressure 161/75 181/72 181/72 O2 Sat by Pulse 100 97 Oximetry 09/28/17 09/28/17 09/28/17 07:37 07:39 09:10 Temperature 99.0 F Pulse Rate 72 Pulse Rate [ 75 Anterior Bilateral Throughout] Respiratory 20 Rate Respiratory 18 Rate [Anterior Bilateral Throughout] Blood Pressure 161/77 O2 Sat by Pulse 99 Oximetry 09/28/17 10:56 Temperature Pulse Rate 72 Pulse Rate [ Anterior Bilateral Throughout] Respiratory Rate Respiratory Rate [Anterior Bilateral Throughout] Blood Pressure 161/77 O2 Sat by Pulse Oximetry - General Appearance General appearance: appears stated age, chronically ill EENT: ATNC, PERRL, mucous membranes moist Neck: no JVD Respiratory: Present: Clear to Ascultation Cardiology: regular, S1S2 Gastrointestinal: normoactive bowel sounds Integumentary: no rash, other (no edema ) Neurologic: no focal deficit, alert and oriented x3, strength 5/5, CN 3-12 intact Psychiatric: mood/affect appropriate, cooperative - Lab 09/27/17 06:00 09/27/17 07:00 Most recent lab results Calcium 8.9 mg/dL (8.4-10.2) 09/27/17 07:00 Phosphorus 5.70 mg/dL (2.5-4.5) H 09/25/17 04:00 Magnesium 2.20 mg/dL (1.7-2.3) 09/25/17 04:00 Urine Sodium 10 mmol/L 09/23/17 09:26
[2017-09-28] MEDS ORDERED: APRESOLINE PO SCH (14:00)
--- NOTE | 2017-09-28 14:14 | Discharge Summary ---
Providers - Providers Date of Admission: 08/27/17 06:28 Date of discharge: 09/28/17 Attending physician: ALDO HERRING 08/27/17 12:00 Consult to Physician [CONS] Urgent Consulting Provider: AYAD GIBSON Reason For Exam: abdominal pain Place consult to:: phone Notified:: wei 08/27/17 13:33 Consult to Physician [CONS] Stat Consulting Provider: REVA PUENTE Reason For Exam: colonic malignance Place consult to:: ANSWERING SERVICE Notified:: no Phone number called:: [phone] If yes, spoke with:: DELL Time called:: 16:20 Comment:: RC 08/30/17 09:56 Consult to Physician [CONS] Routine Consulting Provider: ANDREA FLOYD Reason For Exam: fever on IV antibiotics Place consult to:: Notified:: Phone number called:: [phone] Was contact made?: Yes If yes, spoke with:: LUIS WHITE Time called:: 11:09 Comment:: ARABELLA 08/30/17 20:02 PICC Line Placement [Consult to PICC Line RN] [CONS] Routine Reason For Exam: TPN therapy Type Line:: PICC 09/02/17 11:31 Consult to Physician [CONS] Urgent Consulting Provider: FANY AZUL Reason For Exam: Acute PE with hypoxia Place consult to:: [place] Notified:: yes Was contact made?: No Comment:: Talked w/ answereing service who said Dr. Mccain who is covering will call me 09/05/17 20:36 Consult to Physician [CONS] Routine Consulting Provider: RUTH CONKLIN Reason For Exam: Cancer patient Place consult to:: Aditya Notified:: 2000 Phone number called:: here Was contact made?: Yes If yes, spoke with:: Time called:: 20:00 09/06/17 09:08 PICC Line Placement [Consult to PICC Line RN] [CONS] Stat Reason For Exam: IV acess Type Line:: PICC 09/13/17 08:22 Consult to Physician [CONS] Routine Consulting Provider: CAROL LOZANO Reason For Exam: [place] filter IVC placement Place consult to:: office Notified:: yes Phone number called:: [phone] If yes, spoke with:: hussein Time called:: 08:57 Comment:: rc 09/18/17 19:13 Consult to Physician [CONS] Stat Consulting Provider: WALTER ROIS Reason For Exam: GI bleeding on anticoagulation. Place consult to:: Natali Notified:: no Was contact made?: Yes Comment:: Got in touch with answering service 09/22/17 13:22 Consult to Physician [CONS] Urgent Consulting Provider: CATALINA BANKS Reason For Exam: RACHEL ? BRENDAN Place consult to:: Rita Mckeon Notified:: yes Was contact made?: Yes If yes, spoke with:: Rita Eldridge Time called:: 10:00 09/24/17 14:35 Consult to Dietitian/Nutrition [CONS] Routine Physician Instructions: Reason For Exam: Reason for Consult: Write/Manage Tube Feeding 09/26/17 08:17 Speech Therapy Evaluation and Treat [CONS] Routine Reason For Exam: Swallow evaluation Primary care physician: LINTER SAW SHARPENER Hospitalization Reason for admission: change in mental status , fever .post DVT Condition: Fair Pertinent studies: CT scan of the abdomen Hospital course: 66 year old male admitted on August 27 with altered mental status and fever . Patient was dischrged from [facility] following hospitalization for acute DVT . Patient was found to have fever but workup including blood culture did not show any definite source .Patient was placed on antibiotics and had other workup including CT of chest and adomen .CT of chest showed a hilar mass and CT of abdomen was questionable for possible liver metastasis from previously diagnosed colon cancer . 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 Patient is now extubated and transferred to telemetry ,patient had intermittent agitation and disorientation whille in ICU but this has now resolved . Patient is now being discharged to [facility] for further rehabilitation . Disposition: [id number] MEDICARE CERT [facility] - Discharge Diagnoses (1) Colon cancer metastasized to multiple sites Status: Chronic (2) Altered mental status Status: Resolved Qualifiers: Altered mental status type: transient alteration of awareness Qualified Code(s): R40.4 - Transient alteration of awareness (3) Fever Status: Resolved Qualifiers: Fever type: unspecified Qualified Code(s): R50.9 - Fever, unspecified (4) Hypertension Status: Chronic Qualifiers: Hypertension type: essential hypertension Qualified Code(s): I10 - Essential (primary) hypertension (5) Type 2 diabetes mellitus without complications Status: Chronic (6) Deep vein blood clot of left lower extremity Status: Acute (7) Anemia Status: Acute Qualifiers: Iron deficiency anemia type: chronic blood loss (8) Abdominal pain Status: Resolved Qualifiers: Abdominal location: upper abdomen, unspecified Qualified Code(s): R10.10 - Upper abdominal pain, unspecified (9) Lower GI bleed Status: Resolved (10) Petechial rash Status: Resolved (11) Abnormal liver function test Status: Resolved (12) Respiratory failure requiring intubation Status: Resolved (13) Acute kidney injury Status: Resolved Core Measure Documentation - Palliative Care Palliative Care/ Comfort Measures: Not Applicable - Core Measures Any of the following diagnoses?: DVT/PE - VTE Discharge Requirements Deep Vein Thrombosis/Pulmonary Embolism Present on Admission: Yes Has pt received <5 days of overlap therapy or INR<2.0: No (Lower GI bleed , not a candidate for anticoagulation ) Anticoagulant overlap therapy prescribed at discharge: No Contraindication No Overlap Therapy order at DC: Medical Contraindication Exam - Physical Exam Narrative exam: GENERAL:Awake alert , sitting up in bed not in acute distress HEENT: Mucous membrane is moist, pharynx is clear. NECK: [No JVD, no thyroid enlargement and no lymphadenopathy.] CHEST/LUNGS: Good range of motion bilaterally [No chest wall tenderness, percussion is normal, symmetrical chest wall.] HEART/CARDIOVASCULAR: Tachycardia. Second heart sounds only there is no audible murmur.] ABDOMEN: [Abdomen is soft, non distended, multiple healed laparotomy scars no guarding, no rebound tenderness, , active bowel sounds.] SKIN: Warm and dry NEURO: Alert and oriented x3 moving all four extremities EXTREMITIES: Pedal edema left lower extremity up to below the knee, no edema on the right, good peripheral pulses bilaterally no finger or toe clubbing. - Constitutional Vitals: Temp Pulse Resp BP Pulse Ox 99.0 F 72 18 161/77 100 09/28/17 07:39 09/28/17 10:56 09/28/17 09:20 09/28/17 10:56 09/28/17 10:00 Plan Activity: advance as tolerated Weight Bearing Status: Weight Bear as Tolerated Diet: low carbohydrate Special Instructions: record daily weights, follow up in rehab Follow up with: PRIMARY CAREMD [Primary Care Provider] - 3-5 Days
[2017-09-28 15:01] VITALS: BP 158/66
== END 2017-09-28 16:00 | DRG 853 ==
LOC: ED 02:16 → 3A 06:28 → 2B-ACE 07:39 → CC1 09-22 10:16 → 4A 09-27 23:15
PROVIDERS: ADMIT Internal Medicine; ATTEND Internal Medicine
PROC: 3E0336Z Introduction of Nutritional Substance into Peripheral Vein, Percutaneous Approach (ICD-10-PCS; 2017-08-27)
PROC: 30233N1 Transfusion of Nonautologous Red Blood Cells into Peripheral Vein, Percutaneous Approach (ICD-10-PCS; 2017-08-29)
PROC: 02HV33Z Insertion of Infusion Device into Superior Vena Cava, Percutaneous Approach (ICD-10-PCS; 2017-08-31)
PROC: 4A033R1 Measurement of Arterial Saturation, Peripheral, Percutaneous Approach (ICD-10-PCS; 2017-09-01)
PROC: 5A09357 Assistance with Respiratory Ventilation, Less than 24 Consecutive Hours, Continuous Positive Airway Pressure (ICD-10-PCS; 2017-09-08)
PROC: 06H03DZ Insertion of Intraluminal Device into Inferior Vena Cava, Percutaneous Approach (ICD-10-PCS; principal; 2017-09-20)
PROC: 5A1945Z Respiratory Ventilation, 24-96 Consecutive Hours (ICD-10-PCS; 2017-09-22)
PROC: 0BH17EZ Insertion of Endotracheal Airway into Trachea, Via Natural or Artificial Opening (ICD-10-PCS; 2017-09-22)
PROC: 5A09357 Assistance with Respiratory Ventilation, Less than 24 Consecutive Hours, Continuous Positive Airway Pressure (ICD-10-PCS; 2017-09-22)
DX: A41.9 Sepsis, unspecified organism (principal); J96.01 Acute respiratory failure with hypoxia; I26.99 Other pulmonary embolism without acute cor pulmonale; N18.6 End stage renal disease; N17.0 Acute kidney failure with tubular necrosis; J18.9 Pneumonia, unspecified organism; G92 Toxic encephalopathy; I82.412 Acute embolism and thrombosis of left femoral vein; K56.600 Partial intestinal obstruction, unspecified as to cause; E87.1 Hypo-osmolality and hyponatremia; K92.2 Gastrointestinal hemorrhage, unspecified; I82.432 Acute embolism and thrombosis of left popliteal vein; C18.9 Malignant neoplasm of colon, unspecified; I12.0 Hypertensive chronic kidney disease with stage 5 chronic kidney disease or end stage renal disease; K21.9 Gastro-esophageal reflux disease without esophagitis; F17.210 Nicotine dependence, cigarettes, uncomplicated; D50.0 Iron deficiency anemia secondary to blood loss (chronic); R23.3 Spontaneous ecchymoses; E87.6 Hypokalemia; E11.22 Type 2 diabetes mellitus with diabetic chronic kidney disease; Z79.4 Long term (current) use of insulin
CPT/HCPCS: 31500; 36415; 36600; 37191; 70450; 71010; 71275; 74000; 74177; 76770; 76937; 78278; 80048; 80053; 80074; 80202; 80307; 80320; 81001; 82140; 82803; 82962; 83735; 84100; 84300; 84443; 84478; 85007; 85014; 85018; 85025; 85027; 85049; 85520; 85610; 85730; 86140; 86160; 86162; 86706; 86803; 86850; 86900; 86901; 86920; 87040; 87070; 87205; 88271; 89050; 93005; 93010; 93306; 94002; 94003; 94640; 94660; 94760; 96365; 96372; 96375; A9560; C1880; C9113; G0480; G8996-GN; G8997-GN; J0690; J1265; J1642; J1644; J1650; J1720; J1815; J1818; J1940; J2060; J2250; J2405; J2543; J2920; J3010; J3370; J3480; J7030; J7040; J7050; P9016; Q9967

== ENCOUNTER 2017-10-27 14:26 | Outpatient (CLI) | payer MEDICARE ==
--- NOTE | 2017-10-28 11:14 | PET Report ---
PET/CT:10/27/17 14:26:00 CLINICAL: Colon cancer restaging. RADIOPHARMACEUTICAL: 30.78mCi F18-FDG. COMPARISON: 08/30/17 CT Abdomen and Pelvis and 06/16/17 PET/CT TECHNIQUE- Following intravenous injection of F-18 FDG and an approximately 60 minute uptake period, CT and PET images from the mid skull to the upper thighs were acquired with the patient in the fasted state. No contrast was administered. The CT protocol used for this PET CT study is designed for attenuation correction and anatomic localization of PET abnormalities. This archives technician CT is not desired to produce and cannot replace, pzaff-io-rfs-art diagnostic CT scans with specific imaging protocols for different body parts and indications. Plasma glucose at the time of this test: 112 g/dl. The standardized uptake values (SUV) are normalized to patient body weight and indicate the highest activity concentration (SUV max) in a given disease site. FINDINGS: Brain--Physiologic FDG uptake in the visualized regions of the brain. Neck--Physiologic FDG uptake in the larynx . Chest--Physiologic FDG uptake in mediastinal blood pool and myocardium. Lungs--No abnormal uptake. No pulmonary nodule or mass. Pleura/pericardium--No abnormal uptake. no pleural effusion. Thoracic nodes--No abnormal uptake. Hepatobiliary--No abnormal uptake. Liver background SUV mean, as a reference for comparing FDG studies, is 2.1 compared to 3.8 on the last exam. No liver mass. Spleen--No abnormal uptake. Pancreas--No abnormal uptake. Adrenal Glands--No abnormal uptake. Kidneys/Ureters/Bladder--No abnormal uptake. Abdominopelvic Nodes--No abnormal uptake. Bowel/Peritoneum/Mesentery--Status post subtotal colectomy with ileosigmoid anastomosis. Minimal dilatation of small bowel loops with fluid and air. No suspicion of small bowel obstruction. There is a persistent ill-defined FDG avid soft tissue mass in the left lower quadrant of the abdomen in the vicinity of surgical clips with SUV 7.3 compared to 6.0 on the last exam. This FDG avid soft tissue mass measures roughly 5 x 4 cm. Pelvic organs--No abnormal uptake. Bones/Soft Tissues--No abnormal uptake. Other findings: IVC filter has been placed since the prior exam. Left femoral vein thrombus is less prominent than on the last CT. IMPRESSION-1. 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 However, no evidence of bowel obstruction at this time. 2. No evidence of don, hepatic, adrenal, pulmonary or skeletal metastasis.
== END 2017-10-27 14:27 | disposition home or self-care (01) ==
LOC: PET 14:26 → EDSTATUS 16:00
DX: C18.5 Malignant neoplasm of splenic flexure (principal); K63.89 Other specified diseases of intestine; E11.9 Type 2 diabetes mellitus without complications; I10 Essential (primary) hypertension; J18.9 Pneumonia, unspecified organism; Z90.49 Acquired absence of other specified parts of digestive tract
CPT/HCPCS: 78815; 82962; A9552